=== PATIENT | male | born 1970 | race Caucasian/White ===

== ENCOUNTER 2016-07-16 12:30 | Emergency (ER) | payer OTHER ==
[~2016-07-16] VITALS: Ht 177.8 cm; Wt 125.1 kg
[2016-07-16 12:43] VITALS: BP 152/92; PULSE 97; TEMP 36.4; O2SAT 98; Ht 177.8 cm; Wt 125.1 kg
[2016-07-16] MEDS ORDERED: PSEU30TA20 PO (14:22)
--- NOTE | 2016-07-16 14:35 | EMERGENCY ROOM VISIT NOTE ---
ED Visit Note First contact with patient: 14:13 CHIEF COMPLAINT: Skin rash HISTORY OF PRESENT ILLNESS: This 46-year-old male presents to the ER with chief complaint of a skin rash on both his hands which is very itchy. The patient states that he was diagnosed with scabies one month ago and was treated. He states his symptoms resolved but they started again on . The patient states that he had washed all his sheets in hot water when he was initially diagnosed. There has been no other family members with similar symptoms. REVIEW OF SYSTEMS: 6 system review was performed and was negative unless stated otherwise in history of present illness. PMH: The patient is healthy; there is no significant medical or surgical history. SOCIAL HISTORY: Patient denies any tobacco or alcohol use PHYSICAL EXAM: Vital Signs: Were reviewed See nurses' notes. GEN.: 46 year white male appears in no acute distress. MENTAL Status: Alert and oriented 3. SKIN: On both hands there are erythematous papules with burrows noted. There is no web spaces as well as on the dorsal aspect of the hands. The remainder of skin is clear. DIAGNOSIS: Scabies DISCHARGE INSTRUCTIONS & TREATMENT: Apply Elimite cream to entire body except for head. Leave on for 12 hours then wash off. If symptoms have not completely resolved in 1 week apply another treatment. Take Atarax as needed for itch. Avoid getting body overheated since this will make the itch worse. Wash all clothes and bedding in hot water. Current/Historical Medications Scheduled Pseudoephedrine (Sudafed), 30 MG PO DAILY Allergies Coded Allergies: No Known Allergies (Unverified , 07/16/16) Vital Signs Date Time Temp Pulse Resp B/P Pulse Ox O2 Delivery O2 Flow Rate FiO2 07/16/16 12:43 36.4 97 20 152/92 98 Room Air Departure Information Referrals No Doctor, Assigned (PCP) Patient Instructions A Signature Page, My [facility] Amer[facility]
[2016-07-16] MEDS ORDERED: ELMCR TOP (14:41)
[2016-07-16] MEDS ORDERED: HYDR-3126 PO (14:41)
== END 2016-07-16 14:53 | disposition home or self-care (01) ==
LOC: C.EDB 12:31 → C.EDD 14:53
DX: B86 Scabies (principal)

== ENCOUNTER → 2016-09-18 | Outpatient (CLI) | payer OTHER ==
[~2016-09-18] MED LIST: CEPH500C2 PO; CYCL10TA6 PO; ELMCR TOP; GLC/500 PO; HYDR-5688 PO; IBUP-1428 PO; LISI-729 PO; PSEU30TA20 PO; SIMV80TA2 PO; SULF800T23 PO
[2016-09-18 13:26] LABS: BASO % 0.9 %; BASO ABS # 0.08 K/uL (0-0.2); COMPLETE YES; EOS % 2.4 %; HEMATOCRIT 47.5 % (42-52); IG% 0.2 %; LYMPH ABS # 3.46 K/uL (1.2-3.4); MEAN CELL VOLUME 87.5 fL (80-100); MEAN CORPUSCULAR HEMOGLOBIN 31.9 pg (25-34); MEAN CORPUSCULAR HGB CONC 36.4 g/dl (32-36); MEAN PLATELET VOLUME 11.7 fL (7.4-10.4); MONO % 6.2 %; NEUT % 53.3 %; PLATELET COUNT 203 K/uL (130-400); RED BLOOD COUNT 5.43 M/uL (4.7-6.1); WHITE BLOOD COUNT 9.35 K/uL (4.8-10.8)
[2016-09-18 13:49] LABS: AST/SGOT 7 U/L (15-37); BLOOD UREA NITROGEN 16 mg/dl (7-18); CALCIUM 10.2 mg/dl (8.5-10.1); CARBON DIOXIDE 24 mmol/L (21-32); CHLORIDE 104 mmol/L (98-107); CHOLESTEROL 230 mg/dl (0-200); CHOLESTEROL/HDL RATIO 7.4; GLUCOSE 205 mg/dl (70-99); HDL CHOLESTEROL 31 mg/dl; POTASSIUM 4.3 mmol/L (3.5-5.1); SODIUM 138 mmol/L (136-145)
[2016-09-18 13:51] LABS: ESTIMATED AVERAGE GLUCOSE 203 mg/dl; HA1C FLAG Normal (Normal)
[2016-09-18 13:59] LABS: ALB/GLOB RATIO 0.9 (0.9-2); ALKALINE PHOSPHATASE 103 U/L (45-117); ALT/SGPT 21 U/L (12-78); LDL CHOLESTEROL CALCULATED 156 mg/dl; PROSTATE SPECIFIC ANTIGEN 0.432 ng/ml (0.000-4.000); TRIGLYCERIDES 216 mg/dl (0-150); VERY LOW DENSITY LIPOPROT CALC 43 mg/dl
[2016-09-18 14:22] LABS: RATIO 15.4 mcg/mg (0-30.0)
== END | disposition home or self-care (01) ==
LOC: C.LABPBG 10:58
PROVIDERS: ATTEND Neuromusculoskeletal Medicine & OMM
DX: Z00.00 Encounter for general adult medical examination without abnormal findings (principal); E11.9 Type 2 diabetes mellitus without complications; E78.5 Hyperlipidemia, unspecified; I10 Essential (primary) hypertension

== ENCOUNTER → 2016-10-22 | Outpatient (CLI) | payer OTHER | END | disposition home or self-care (01) | LOC: C.LABPBG 09:39 | PROVIDERS: ATTEND Physician Assistant | DX: E53.8 Deficiency of other specified B group vitamins (principal) ==

== ENCOUNTER 2017-02-12 08:13 | Emergency (ER) | payer OTHER ==
[~2017-02-12] VITALS: Ht 182.9 cm; Wt 121.9 kg
[~2017-02-12 08:13] MED LIST changes: -CEPH500C2 PO; -CYCL10TA6 PO; -GLC/500 PO; -HYDR-5688 PO; -IBUP-1428 PO; -LISI-729 PO; -SIMV80TA2 PO; -SULF800T23 PO
[2017-02-12 08:18] VITALS: TEMP 36.7; Ht 182.9 cm; Wt 121.9 kg
[2017-02-12] MEDS ORDERED: IBUPROFEN 600 MG TAB PO STA (08:31)
[2017-02-12] MEDS ORDERED: GLC/500 PO (08:47)
[2017-02-12] MEDS ORDERED: SIMV80TA2 PO (08:51)
[2017-02-12] MEDS ORDERED: LISI-729 PO (08:51)
--- NOTE | 2017-02-12 09:39 | DIAGNOSTIC IMAGING REPORT ---
THORACIC SPINE 3 VIEWS ROUTINE HISTORY: Pain Mid back pain COMPARISON: None. FINDINGS: There is no fracture. No subluxation. Disc spaces are preserved. IMPRESSION: No fracture or subluxation within the thoracic spine. The above report was generated using voice recognition software. It may contain grammatical, syntax or spelling errors. Electronically signed by: Dennis Rothman M.D. 02/12/2017 9:38 AM Dictated Date/Time: 02/12/2017 9:38 AM
[2017-02-12] MEDS ORDERED: IBUP-1428 PO (10:30)
[2017-02-12] MEDS ORDERED: CYCL10TA6 PO (10:30)
[2017-02-12 10:35] VITALS: BP 148/95; PULSE 89; O2SAT 98
--- NOTE | 2017-02-12 11:16 | EMERGENCY ROOM VISIT NOTE ---
History First contact with patient: 08:20 Chief Complaint: BACK PAIN Stated Complaint: BACK PAIN History of Present Illness The patient is a 46 year old male who presents to the Emergency Room with complaints of central back pain. 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 She now reports generalized pain radiating into the lower back region. It does not extend into the buttocks or extremities. The patient denies any rib pain, chest pain, shortness of breath or abdominal pain. The patient denies any prior history of back injuries or chronic back pain. The patient has not taken any medicine for his pain, and currently rates his discomfort a 4 out of 10. Review of Systems 10 system review was performed and was negative except for pertinent positives and negatives as indicated in history of present illness Past Medical/Surgical History Medical Problems: (1) Diab Crystal Wo Compl, Type Ii Or Unspec Type, Not Uncntrld (2) Hyperlipidemia, Unspecified (3) Hypertension Nos Family History FH: heart disease Social History Smoking Status: Current Every Day Smoker Alcohol Use: none Drug Use: none Marital Status: single Housing Status: lives with family Occupation Status: employed Current/Historical Medications Scheduled Cyclobenzaprine Hcl (Flexeril), 10 MG PO TID Lisinopril (Zestril), 5 MG PO DAILY Metformin Hcl (Glucophage), 500 MG PO BID Permethrin 5% (Elimite 5%), 1 APPLN TOP DIRECTED Simvastatin (Zocor), 80 MG PO DAILY Scheduled PRN Ibuprofen (Motrin), 800 MG PO Q8H PRN for Pain Physical Exam Vital Signs Date Time Temp Pulse Resp B/P (MAP) Pulse Ox O2 Delivery O2 Flow Rate FiO2 02/12/17 10:35 89 16 148/95 98 02/12/17 08:18 36.7 102 18 157/88 96 Room Air Physical Exam CONSTITUTIONAL: Obese male, alert and oriented X 3 with positive affect. Patient appears in mild discomfort. HEENT: Normocephalic, atraumatic. Pupils equal, round and reactive. NECK: Full active range of motion without discomfort. RESPIRATORY: Clear to auscultation bilaterally with no wheezing, crackles, rhonchi or stridor. CARDIOVASCULAR: Regular rate and rhythm with no murmurs, rubs or gallops. GASTROINTESTINAL: Bowel sounds present in all quadrants. Soft and nontender to palpation. MUSCULOSKELETAL: Examination shows mild tenderness to palpation through the lower thoracic paraspinous muscles, left worse than right. He has no focal tenderness through the central thoracolumbar spine or SI joints. Negative logroll. Negative sitting straight leg raise. The patient is able to lateral bend, rotate, flex and extend the back with mild discomfort. No paraspinous muscle spasm noted. INTEGUMENTARY: No rash or other significant dermatologic conditions noted. NEUROLOGIC: No focal neurologic deficits noted. Medical Decision & Procedures ER Provider Diagnostic Interpretation: My interpretation of thoracic spine x-rays THORACIC SPINE 3 VIEWS ROUTINE HISTORY: Pain Mid back pain COMPARISON: None. FINDINGS: There is no fracture. No subluxation. Disc spaces are preserved. IMPRESSION: No fracture or subluxation within the thoracic spine. Medications Administered Medications (Trade) Dose Ordered Sig/Anil Route Start Time Stop Time Status Last Admin Dose Admin Ibuprofen (Motrin Tab) 600 mg NOW STAT PO 02/12/17 08:31 02/12/17 08:33 DC 02/12/17 08:57 600 MG ED Course Patient history and physical exam were performed. Nurse's notes were reviewed. Vital signs were reviewed, showing a blood pressure 157/88. The patient was administered ibuprofen 600 mg for pain. X-rays of the thoracic spine were normal. The patient was encouraged to alternate ibuprofen and Tylenol for baseline pain relief. He did receive prescriptions for ibuprofen 800 mg and Flexeril 10 mg. He was instructed to follow-up with his Worker's Compensation physician if symptoms are not improving. He was given a note for light duty over the next 5 days he is welcome to return to the emergency department for any progressively worsening pain or concerning neurologic symptoms. The patient was happy with plan of care, and voiced understanding of all discharge instructions. He denied any pain at the conclusion of my exam. The patient's blood pressure was also elevated in the emergency department. He was encouraged to follow-up with his PCP for blood pressure recheck. Medical Decision Blood Pressure Screening Patient's blood pressure: Elevated blood pressure Blood pressure disposition: Referred to PCP Impression Primary Impression: Acute thoracic myofascial strain Departure Information Prescriptions Cyclobenzaprine Hcl (FLEXERIL) 10 Mg Tab 10 MG PO TID for spasm, #15 TAB Prov: Gordy Nagel PA 02/12/17 Ibuprofen (Motrin) 800 Mg Tab 800 MG PO Q8H Y for Pain, #20 TAB For Initial Treatment Prov: Gordy Nagel PA 02/12/17 Referrals Joaquin Esparza D.O. (PCP) Patient Instructions [facility] Problem Qualifiers Primary Impression: Acute thoracic myofascial strain Encounter type: initial encounter Qualified Codes: S29.019A - Strain of muscle and tendon of unspecified wall of thorax, initial encounter
== END 2017-02-12 10:35 | disposition home or self-care (01) ==
LOC: C.EDB 08:14 → C.EDA 10:35
DX: S29.012A Strain of muscle and tendon of back wall of thorax, initial encounter (principal); X50.9XXA Other and unspecified overexertion or strenuous movements or postures, initial encounter; Y99.0 Civilian activity done for income or pay; F17.210 Nicotine dependence, cigarettes, uncomplicated; E11.9 Type 2 diabetes mellitus without complications; I10 Essential (primary) hypertension; Z79.899 Other long term (current) drug therapy; E78.5 Hyperlipidemia, unspecified

== ENCOUNTER 2017-02-23 07:35 | Emergency (ER) | payer OTHER ==
[~2017-02-23] VITALS: Ht 177.8 cm; Wt 119.4 kg
[~2017-02-23 07:35] MED LIST changes: +CYCL10TA6 PO; +GLC/500 PO; +IBUP-1428 PO; +LISI-729 PO; -PSEU30TA20 PO; +SIMV80TA2 PO
[2017-02-23 07:42] VITALS: TEMP 36.9; Ht 177.8 cm; Wt 119.4 kg
[2017-02-23] MEDS ORDERED: CEFTRIAXONE SOD INJ 1 GM ADDVIAL IV STA (08:05)
[2017-02-23] MEDS ORDERED: DIPHTHERIA/TETANUS/PERTUSSIS 0.5 ML SYR/VIAL IM. ONE (08:15)
[2017-02-23] MEDS ORDERED: LIDO/EPINEPHRINE/SOD BICARB 20 ML VIAL INFIL ONE (08:15)
[2017-02-23] MEDS ORDERED: SULFAMETHOXAZOLE/TRIMETHOPRIM DS 800/160MG TAB PO ONE (08:15)
[2017-02-23 08:58] LABS: BASO % 0.5 %; BASO ABS # 0.06 K/uL (0-0.2); COMPLETE YES; EOS % 3.2 %; HEMATOCRIT 42.1 % (42-52); IG% 0.3 %; LYMPH % 18.5 %; LYMPH ABS # 2.19 K/uL (1.2-3.4); MEAN CELL VOLUME 86.1 fL (80-100); MEAN CORPUSCULAR HEMOGLOBIN 30.5 pg (25-34); MEAN CORPUSCULAR HGB CONC 35.4 g/dl (32-36); MEAN PLATELET VOLUME 10.7 fL (7.4-10.4); MONO % 6.9 %; NEUT % 70.6 %; PLATELET COUNT 207 K/uL (130-400); RED BLOOD COUNT 4.89 M/uL (4.7-6.1); WHITE BLOOD COUNT 11.81 K/uL (4.8-10.8)
[2017-02-23 09:10] LABS: BUN/CREATININE RATIO 12.9 (10-20); CALCIUM 9.8 mg/dl (8.5-10.1); CREATININE 0.8 mg/dl (0.60-1.40); POTASSIUM 4.2 mmol/L (3.5-5.1)
[2017-02-23 09:21] VITALS: BP 126/74; PULSE 95; O2SAT 97
[2017-02-23 09:28] LABS: BETA-HYDROXYBUTYRATE 8.38 mg/dL (0.2-2.81)
[2017-02-23] MEDS ORDERED: SULF800T23 PO (09:42)
[2017-02-23] MEDS ORDERED: HYDR-5688 PO (09:42)
[2017-02-23] MEDS ORDERED: CEPH500C2 PO (09:42)
--- NOTE | 2017-02-23 09:45 | EMERGENCY ROOM VISIT NOTE ---
ED Visit Note First contact with patient: 07:50 CHIEF COMPLAINT: Infection on the left axilla times one day HISTORY OF PRESENT ILLNESS: Patient is a 46-year-old white male, right-hand dominant, who presents emergency department for evaluation of an infection in the left armpit. He states that 3 nights ago while sleeping he felt a pinch in his left armpit at that he got bit by something, but didn't notice anything when he woke up. He states that yesterday the area became more red, swollen and tender. When he woke up this morning, the area was draining pus. Pain is better now that it has opened and draining. He applied Neosporin to the area. He has been using ibuprofen for a mid back strain her couple of weeks. He denies any fever or chills. He has been checking his blood sugars and they have been normal for him. He desires any prior history of skin infections or abscesses. He states he has pain when he tries to move the left arm. REVIEW OF SYSTEMS: Review of systems as per HPI. All other systems reviewed were negative. At least 6 systems reviewed. PMH: Electronic medical records are reviewed and summarized as above/below. See Problem List. His tetanus is not up-to-date. SOCIAL HISTORY: Patient lives at home with his mother. Employed. Positive tobacco use. PHYSICAL EXAM: Vital Signs: Reviewed Nurse's notes. CONSTITUTIONAL: Patient is a well-appearing 46-year-old white male who is awake and alert and in no acute distress. HEART: Regular rate and rhythm. LUNGS: Clear to auscultation. INTEGUMENTARY: Examination of the left axillary area show a large, actively draining abscess, with surrounding erythema and early cellulitic changes. Abscesses roughly baseball sized. The area is moderately tender to palpation. There is no lymphangitic streaking. MUSCULOSKELETAL: The left shoulder is nontender to palpation, non-erythematous, range of motion is full, limited only by pain from the axilla. Left upper extremity is neurovascularly intact. EMERGENCY DEPARTMENT COURSE: IV lock was initiated. CBC and BMP were collected. He was given Bactrim DS 2 tablets orally and 1 g of Rocephin IV. The abscess was prepped with Betadine and draped sterilely. 1% buffered lidocaine with epinephrine was used for local anesthesia, site where the abscess was draining was opened with an 11 blade, significant purulent material drained, culture was obtained and is pending. The abscess was decompressed, probed for loculations, and irrigated copiously with normal saline solution. Cavity was packed with plain gauze packing dipped in Betadine. Bulky, absorbant dressing was applied. Patient's laboratory studies revealed a slightly elevated white count at 11,800 , electrolytes are within normal limits. His glucose was 413. He reports that he has been checking his blood sugars at home and they have been "around 100." Recent laboratory studies performed a few months ago and noted his hemoglobin A1c to be 8.7. Patient was encouraged to monitor his blood sugars more closely , given the infection, and report his readings to discuss with his PCP at his follow-up appointment. Wound care measures were discussed with the patient. He will be placed on Keflex and Bactrim. He was also given a prescription for [place] to use for severe pain. Patient reports that he has a standing appointment with his primary care provider on 02/25, and if they are willing, he can be reevaluated there and have packing removed. Given the size of the abscess however, I suspect it would need to be repacked. If they are unable to do this in the office, or unwilling to reevaluate it, he was advised to return to the emergency department on Saturday for wound recheck, packing removal, and I suspect , repacking of the abscess. He was educated on the worrisome signs or symptoms for which he should return to the emergency department. Differential diagnoses include abscess, cellulitis, hidradenitis, lymphangitis, mass or malignancy, septic joint, among others. Medication reconciliation: I attest that I have personally reviewed the patient' s current medication list. Blood pressure screening: Patient was found to have a slightly elevated blood pressure due to circumstances. I do not believe that the patient requires hypertension monitoring. Patient was reviewed in the [facility] Prescription Drug Monitoring Program, and there were no red flags noted. Problem List Medical Problems: (1) Acute thoracic myofascial strain Status: Resolved (2) Diab Crystal Wo Compl, Type Ii Or Unspec Type, Not Uncntrld Status: Chronic (3) Hyperlipidemia, Unspecified Status: Chronic (4) Hypertension Nos Status: Chronic (5) Scabies Status: Resolved (6) Strain of thoracic spine Status: Resolved (7) Work related injury Status: Resolved Current/Historical Medications Scheduled Cephalexin Monohydrate (Keflex), 500 MG PO QID Lisinopril (Zestril), 5 MG PO DAILY Metformin Hcl (Glucophage), 500 MG PO BID Permethrin 5% (Elimite 5%), 1 APPLN TOP DIRECTED Simvastatin (Zocor), 80 MG PO DAILY Sulfa/Trimethoprim (Bactrim Ds 800MG/160MG), 1 TAB PO BID Scheduled PRN Hydrocodone/Acetaminophen 5MG/325MG ([place] 5MG/325MG), 1-2 TABLETS PO Q4 PRN for Pain Ibuprofen (Motrin), 800 MG PO Q8H PRN for Pain Allergies Coded Allergies: No Known Allergies (Unverified , 02/23/17) Vital Signs Date Time Temp Pulse Resp B/P (MAP) Pulse Ox O2 Delivery O2 Flow Rate FiO2 02/23/17 09:21 95 16 126/74 97 02/23/17 07:42 36.9 115 20 161/85 96 Room Air Laboratory Results 02/23/17 08:15 Red Blood Count 4.89, Mean Corpuscular Volume 86.1, Mean Corpuscular Hemoglobin 30.5, Mean Corpuscular Hemoglobin Concent 35.4, Mean Platelet Volume 10.7, Neutrophils (%) (Auto) 70.6, Lymphocytes (%) (Auto) 18.5, Monocytes (%) (Auto) 6.9, Eosinophils (%) (Auto) 3.2, Basophils (%) (Auto) 0.5, Neutrophils # (Auto) 8.33, Lymphocytes # (Auto) 2.19, Monocytes # (Auto) 0.81, Eosinophils # (Auto) 0.38, Basophils # (Auto) 0.06 02/23/17 08:15 Test 02/23/17 08:15 White Blood Count 11.81 K/uL (4.8-10.8) Red Blood Count 4.89 M/uL (4.7-6.1) Hemoglobin 14.9 g/dL (14.0-18.0) Hematocrit 42.1 % (42-52) Mean Corpuscular Volume 86.1 fL (80-100) Mean Corpuscular Hemoglobin 30.5 pg (25-34) Mean Corpuscular Hemoglobin Concent 35.4 g/dl (32-36) Platelet Count 207 K/uL (130-400) Mean Platelet Volume 10.7 fL (7.4-10.4) Neutrophils (%) (Auto) 70.6 % Lymphocytes (%) (Auto) 18.5 % Monocytes (%) (Auto) 6.9 % Eosinophils (%) (Auto) 3.2 % Basophils (%) (Auto) 0.5 % Neutrophils # (Auto) 8.33 K/uL (1.4-6.5) Lymphocytes # (Auto) 2.19 K/uL (1.2-3.4) Monocytes # (Auto) 0.81 K/uL (0.11-0.59) Eosinophils # (Auto) 0.38 K/uL (0-0.5) Basophils # (Auto) 0.06 K/uL (0-0.2) RDW Standard Deviation 40.3 fL (36.4-46.3) RDW Coefficient of Variation 12.7 % (11.5-14.5) Immature Granulocyte % (Auto) 0.3 % Immature Granulocyte # (Auto) 0.04 K/uL (0.00-0.02) Anion Gap 7.0 mmol/L (3-11) Est Creatinine Clear Calc Drug Dose 149.4 ml/min Estimated GFR () 124.2 Estimated GFR (Non- 107.1 BUN/Creatinine Ratio 12.9 (10-20) Calcium Level 9.8 mg/dl (8.5-10.1) Beta-Hydroxybutyric Acid 8.38 mg/dL (0.2-2.81) Medications Administered Medications (Trade) Dose Ordered Sig/Anil Route Start Time Stop Time Status Last Admin Dose Admin Diphtheria/ Pertussis/Tetanus Vacc (Adacel Inj) 0.5 ml ONCE ONCE IM. 02/23/17 08:15 02/23/17 08:16 DC 02/23/17 08:47 0.5 ML Ceftriaxone Sodium (Rocephin Inj) 1 gm NOW STAT IV 02/23/17 08:05 02/23/17 08:07 DC 02/23/17 08:47 1 GM Trimethoprim/ Sulfamethoxazole (Septra Ds 800/ 160MG Tab) 2 tab NOW ONCE PO 02/23/17 08:15 02/23/17 08:16 DC 02/23/17 08:46 2 TAB Departure Information Impression Primary Impression: Abscess of left axilla Prescriptions Hydrocodone/Acetaminophen 5MG/325MG ([place] 5MG/325MG) Tab 1-2 TABLETS PO Q4 Y for Pain, #20 TAB For Initial Treatment Prov: Sierra Gaytan PA 02/23/17 Sulfa/Trimethoprim (Bactrim Ds 800MG/160MG) Tab 1 TAB PO BID, #20 TAB Prov: Sierra Gaytan PA 02/23/17 Cephalexin Monohydrate (KEFLEX) 500 Mg Cap 500 MG PO QID, #40 CAP Prov: Sierra Gaytan PA 02/23/17 Referrals Joaquin Esparza D.OFiona (PCP) Patient Instructions [facility] Additional Instructions Hydrocodone/Acetaminophen ([place]) 5/325 mg: Take 1-2 pills every four hours for breakthrough pain. Avoid alcohol, operating machinery or dangerous equipment, working on ladders or roofs, DRIVING, or situations where being under the influence may be dangerous. It is recommended to use an uqso-zsy-qlnbxom stool softener such as Colace, 100mg twice daily while taking this medication to avoid constipation. Cephalexin(Keflex) 500mg: Take one pill four times daily for 10 days for your skin infection. All antibiotics can cause diarrhea. If this occurs and you feel worse or it does not resolve in 1-2 days follow up with your doctor or return to the Emergency Department as this could be signs of serious underlying problems. Any medication can cause an allergic reaction, stop the pills immediately and return to the ER for rash, hives, breathing difficulties, or swelling. Trimethoprim-Sulfamethoxazole(Bactrim DS): Take one pill twice daily for 10 days for your skin infection. All antibiotics can cause diarrhea. If this occurs and you feel worse or it does not resolve in 1-2 days follow up with your doctor or return to the Emergency Department as this could be signs of serious underlying problems. Any medication can cause an allergic reaction, stop the pills immediately and return to the ER for rash, hives, breathing difficulties, or swelling. Ibuprofen(Motrin, Advil) may be used for fever or pain. Use 600mg every six hours as needed. Take with food. Avoid using more than 2400mg in a 24 hour period. Do not use 2400mg per day for more than three consecutive days without physician direction. Prolonged inappropriate use can lead to stomach upset or ulcers. Warm compresses to the affected area 4 times daily for 15-20 minutes. Dressing changes daily, more often if the dressing becomes saturated her soiled. May shower, he careful to not remove the packing material accidentally when changing a bandage or when bathing. Rest and drink plenty of fluids. Continue current medications. Return to the ER in 48 hours for wound recheck and packing removal, immediately for severe pain, persistent fevers, spreading redness, or any worsening of your condition. Follow up with your primary physician as scheduled on Saturday for a recheck of the current condition. Your blood sugar was over 400 today. This could be related to your infection. Please check your blood sugars more frequently over the weekend and record results to review with your PCP on Saturday.
--- NOTE | 2017-02-25 15:43 | Pharmacy Progress Note ---
ED Pharmacist Culture FollowUp Date of Service: Feb 25, 2017. Patient's L axilla abscess cx is growing MSSA (pansensitive). He had been discharged w/ Rx's for Keflex 500mg PO QID x 10 days + Bactrim DS 1 PO BID x 10 days. I consulted S Stephan PAC to see if abx therapy could be deescalated based upon cx results. She stated the abscess size was large and that the patient was unkempt therefor both antibiotics may be warranted as he has risk factors for poor response. Please continue both ABX.
== END 2017-02-23 09:45 | disposition home or self-care (01) ==
LOC: C.EDB 07:36
DX: L02.412 Cutaneous abscess of left axilla (principal); Z72.0 Tobacco use; E11.9 Type 2 diabetes mellitus without complications; E78.5 Hyperlipidemia, unspecified; I10 Essential (primary) hypertension; Z23 Encounter for immunization; Z79.84 Long term (current) use of oral hypoglycemic drugs; Z79.899 Other long term (current) drug therapy

== ENCOUNTER 2017-02-23 18:44 | Emergency (ER) | payer OTHER ==
[~2017-02-23] VITALS: Ht 177.8 cm; Wt 118.9 kg
[~2017-02-23 18:44] MED LIST changes: +CEPH500C2 PO; +HYDR-5688 PO; +SULF800T23 PO
[2017-02-23 18:47] VITALS: TEMP 36.9; Ht 177.8 cm; Wt 118.9 kg
[2017-02-23 20:10] VITALS: BP 143/97; PULSE 98; O2SAT 97
--- NOTE | 2017-02-24 01:29 | EMERGENCY ROOM VISIT NOTE ---
ED Visit Note First contact with patient: 18:53 Chief Complaint: My packing is falling out. History of Present Illness: Mr. Jackman is a 46-year-old white male who ambulates into the ED accompanied by his mother complaining of packing material falling out of an abscess. Patient reports he was here earlier today and had an I&D procedure performed for a left axillary abscess approximately 4-5 hours ago. After arriving home he accidentally pulled out some of the packing. Additionally reports when this happened he had additional drainage of what he felt was a large amount of blood and pus. Since that time he reports he has had no increasing pain in the area of the abscess, fevers, chills, worsening swelling or any other concerning symptoms. Review of Systems: As noted above in history of present illness. Past Medical History: (1) Acute thoracic myofascial strain (2) Diab Crystal Wo Compl, Type Ii Or Unspec Type, Not Uncntrld (3) Hyperlipidemia, Unspecified (4) Hypertension Nos (5) Scabies (6) Strain of thoracic spine (7) Work related injury Current Medications: Medications Dose Route/Sig Max Daily Dose Days Date Category Dose Instructions [place] 5MG/325MG (Acetaminophen/Hydrocodone Bitart) Tab 1-2 Tablets PO Q4 PRN 02/23/17 Rx For Initial Treatment Bactrim Ds 800MG/160MG (Trimethoprim/Sulfamethoxazole) Tab 1 Tab PO BID 02/23/17 Rx Keflex (Cephalexin Monohydrate) 500 Mg Cap 500 Mg PO QID 02/23/17 Rx Motrin (Ibuprofen) 800 Mg Tab 800 Mg PO Q8H PRN 02/12/17 Rx For Initial Treatment Zestril (Lisinopril) 5 Mg Tab 5 Mg PO DAILY 02/12/17 Reported Zocor (Simvastatin) 80 Mg Tab 80 Mg PO DAILY 02/12/17 Reported Glucophage (Metformin Hcl) 500 Mg Tab 500 Mg PO BID 02/12/17 Reported Elimite 5% (Permethrin) 180 Appln/60 Gm Cr 1 Appln TOP DIRECTED 07/16/16 Rx Apply cream to entire body sparing the head. Leave on for 12 hours then wash off. Repeat in 1 week if symptoms persist Allergies to Medications: Patient denies. Social History: Patient feels safe in his home environment; he admits to tobacco use. Physical Examination: Vital Signs: Date Time Temp Pulse Resp B/P (MAP) Pulse Ox O2 Delivery O2 Flow Rate FiO2 02/23/17 20:10 98 18 143/97 97 02/23/17 18:47 36.9 112 18 146/99 98 Room Air GENERAL: 46-year-old male in mild dstress due to pain, nontoxic-appearing, afebrile and hemodynamically stable. NEUROLOGICAL: Awake, alert and oriented to person, place and time. Answering questions appropriately and following commands. LEFT AXILLARY AREA: Patient has a large indurated area that is also fluctuant over the inferior aspect of the axilla. There is a 5-6 cm piece of packing hanging from his incision. No active bleeding or drainage. No lymphangitis. ED Course: Patient is assessed as noted above. Patient's medications were reviewed. Packing Removal and Reinsertion Complexity: Basic Verbal consent was obtained after the risks and benefits were explained. Patient's packing was removed. The skin was prepped with betadine and a sterile field set. A small amount of blood-tinged puslike material was able to be expressed from the wound. Visualization of the inside of the abscess cavity did not show any bleeding. Approximately 12 inch of packing material was reinserted into his abscess cavity. After this was performed patting was taped into place in the area to collect any additional drainage and try to secure the packing material. No complications and the patient tolerated the procedure well. Patient was educated about tonight's findings and instructed on his treatment plan; he verbalizes understanding and agreement with this plan. Clinical Impression: Abscess recheck. Packing reinsertion. Disposition: Patient discharged in stable condition accompanied by his mother. Plan: Patient was encouraged to continue to follow his current treatment plan and was prescribed earlier and to continue his antibiotics. Patient was encouraged return ED for uncontrolled pain, fever, increasing redness/swelling, increasing pus like drainage, red streaking or any new/ concerning symptoms.
== END 2017-02-23 20:11 | disposition home or self-care (01) ==
LOC: C.EDB 18:45 → C.EDD 20:11
DX: Z48.00 Encounter for change or removal of nonsurgical wound dressing (principal); L02.412 Cutaneous abscess of left axilla; E11.9 Type 2 diabetes mellitus without complications; E78.5 Hyperlipidemia, unspecified; I10 Essential (primary) hypertension

== ENCOUNTER 2017-02-25 10:51 | Emergency (ER) | payer OTHER ==
[~2017-02-25] VITALS: Ht 177.8 cm; Wt 119.0 kg
[~2017-02-25 10:51] MED LIST changes: -CYCL10TA6 PO
[2017-02-25 11:02] VITALS: BP 144/79; PULSE 111; TEMP 36.7; O2SAT 98; Ht 177.8 cm; Wt 119.0 kg
--- NOTE | 2017-02-25 11:39 | EMERGENCY ROOM VISIT NOTE ---
ED Visit Note First contact with patient: 11:21 CHIEF COMPLAINT: Packing removal HISTORY OF PRESENT ILLNESS: This 46-year-old male presents the ER stating he needs the packing removed from his left axilla. The patient was seen here 2 days ago and packing was placed initially but when he went home it fell out so he came back in and more packing was placed. The patient has been taking antibiotics as prescribed. He states the packing is still in place. He states when they change the bandage this morning there was minimal drainage. The patient denies any fever or chills. REVIEW OF SYSTEMS: 6 system review was performed and was negative unless stated otherwise in history of present illness. PMH: The patient is healthy; see chronic problem list. No changes from prior ER visit. SOCIAL HISTORY: Patient lives with his mother PHYSICAL EXAM: Vital Signs: Were reviewed Reviewed Nurse's notes. GEN.: 46-year -old white male appears in no acute distress. MENTAL Status: Alert and oriented 3. LEFT AXILLA; there is a slightly erythematous indurated area with a central opening with packing in place. There is no palpable fluctuance around the opening EMERGENCY DEPARTMENT COURSE: The patient was evaluated. The packing was removed and the cavity was swabbed with a Q-tip. There was very minimal drainage noted . A dressing was placed. The patient was discharged home in stable condition DIAGNOSIS: Abscess of the left axilla DISCHARGE INSTRUCTIONS & TREATMENT: Change the dressing if it becomes soiled or blood-stained. Continue antibiotics as prescribed. Keep area covered until wound is healed over. If symptoms worsen such as increased redness or increased drainage, return to the ER. Problem List Medical Problems: (1) Acute thoracic myofascial strain Status: Resolved (2) Diab Crystal Wo Compl, Type Ii Or Unspec Type, Not Uncntrld Status: Chronic (3) Hyperlipidemia, Unspecified Status: Chronic (4) Hypertension Nos Status: Chronic (5) Scabies Status: Resolved (6) Strain of thoracic spine Status: Resolved (7) Work related injury Status: Resolved Current/Historical Medications Scheduled Cephalexin Monohydrate (Keflex), 500 MG PO QID Lisinopril (Zestril), 5 MG PO DAILY Metformin Hcl (Glucophage), 500 MG PO BID Simvastatin (Zocor), 80 MG PO DAILY Sulfa/Trimethoprim (Bactrim Ds 800MG/160MG), 1 TAB PO BID Scheduled PRN Ibuprofen (Motrin), 800 MG PO Q8H PRN for Pain Allergies Coded Allergies: No Known Allergies (Unverified , 02/23/17) Vital Signs Date Time Temp Pulse Resp B/P (MAP) Pulse Ox O2 Delivery O2 Flow Rate FiO2 02/25/17 11:02 36.7 111 20 144/79 98 Room Air Departure Information Referrals Joaquin Esparza D.O. (PCP) Patient Instructions Formerly [facility], 1928–1983
== END 2017-02-25 11:50 | disposition home or self-care (01) ==
LOC: C.EDB 10:52 → C.EDD 11:50
DX: L02.412 Cutaneous abscess of left axilla (principal); E11.9 Type 2 diabetes mellitus without complications; I10 Essential (primary) hypertension; E78.5 Hyperlipidemia, unspecified; Z79.84 Long term (current) use of oral hypoglycemic drugs; Z79.899 Other long term (current) drug therapy

== ENCOUNTER 2024-03-29 23:07 | Inpatient (IN) ==
[2024-03-29] MEDS: ASPIRIN 81 MG CHEW PO STA (23:43)
[2024-03-29] MEDS: NITROGLYCERIN SL 0.4 MG/TAB TAB ONE (23:43)
[2024-03-29] MEDS: NITROGLYCERIN SL 0.4 MG/TAB TAB SL STA (23:43)
[2024-03-29 23:44] LABS: Hematocrit (blood only) 46.6 % (42.0-52.0); Hemoglobin 15.4 g/dl (14.0-18.0); Mean Corpuscular Hemoglobin 29.6 pg (25.0-34.0); Mean Corpuscular Volume 89.4 fL (80.0-100.0); Mean Platelet Volume 10.7 fL (9.4-12.4); Platelet Count 271 K/uL (130-400); RDW Coefficient of Variation 13.9 % (11.5-14.5); RDW Standard Deviation 45.8 fL (36.4-46.3); Red Blood Count 5.21 M/uL (4.70-6.10); White Blood Count 27.48 K/ul (4.8-10.8)
[2024-03-29 23:45] LABS: iSTAT Creatinine 0.8 mg/dl (0.6-1.3); iSTAT Hemoglobin 16.3 g/dl (14.0-18.0); iSTAT Ionized Calcium 1.29 mmol/l (1.12-1.32); iSTAT Potassium 3.8 mmol/L (3.3-5.0)
[2024-03-29 23:59] LABS: iSTAT Arterial Blood Gas HCO3 21 meg/L (19-24); iSTAT Arterial Blood Gas pCO2 41 mmHg (35-46); iSTAT Arterial Blood Gas pH 7.31 (7.35-7.45); iSTAT Arterial Blood Gas pO2 146 mmHg (80-95); iSTAT Carbon Dioxide 22 mmol/L (24-31); iSTAT Hematocrit 45 % (42-52); iSTAT Hemoglobin 15.3 g/dl (14.0-18.0); iSTAT Potassium 3.4 mmol/L (3.3-5.0); iSTAT Sodium 135 mmol/L (135-144)
[2024-03-30 00:16] LABS: BUN Creatinine Ratio 21.7 (10-20); Calcium 9.8 mg/dl (8.6-10.3); Creatinine Clr Calc Pharmacy 109.4 ml/min; Est GFR (African American) 108.9 ml/min; Magnesium 1.6 mg/dl (1.7-2.4); Partial Thromboplastin Time 26 Seconds (21-31); Potassium 3.9 mmol/L (3.5-5.1); Prothrombin Time 11.1 Seconds (9.0-12.0); Troponin I High Sensitivity 165.1 pg/ml (0-20)
[2024-03-30 00:18] LABS: Basophils # (auto) 0.17 K/uL (0.00-0.20); Basophils % (auto) 0.6 %; Eosinophils # (auto) 0.26 K/uL (0.00-0.50); Eosinophils % (auto) 0.9 %; Immature Granulocytes # (auto) 0.21 K/uL (0.01-0.20); Immature Granulocytes % (auto) 0.8 %; Lymphocytes # (auto) 5.37 K/uL (1.20-3.40); Lymphocytes % (auto) 19.5 %; Monocytes % (auto) 4.7 %; Neutrophils # (auto) 20.17 K/uL (1.40-6.50); Neutrophils % (auto) 73.5 %
[2024-03-30] MEDS: OPTIRAY 320 125ml IV ONE (00:23)
[2024-03-30] MEDS: FUROSEMIDE 40 MG/4 ML VIAL IV ONE (00:29)
--- NOTE | 2024-03-30 00:36 | Emergency Department Note ---
History of Present Illness General Chief Complaint: Shortness of Breath/Dyspnea Stated Complaint: SOB Time Seen by Provider: 03/29/24 23:23 History of Present Illness Provider Complaint: shortness of breath Onset (ago): hour(s) (1) Consistency/Duration: + progressively worsening Relieved By: + upright position Exacerbated By: + lying flat Context: + medication noncompliance Associated symptoms: + orthopnea; no chest pain, no fever, no cough, no palpitations, no hemoptysis or no abdominal pain Treatment prior to arrival: none Related Data Home oxygen amount: none Home Medications Medication Instructions Recorded Confirmed Type ibuprofen 600 mg tablet 600 mg PO Q6H PRN pain #30 tabs 07/04/20 03/30/24 Rx blood sugar diagnostic (Prolacta BioscienceTouch #50 ea 09/06/20 03/30/24 Rx Verio test strips) blood-glucose meter (Prolacta BioscienceTouch #1 ea 09/06/20 03/30/24 Rx Verio Flex Start kit) lancets 33 gauge (Prolacta BioscienceTouch Delica #100 ea 09/06/20 03/30/24 Rx Lancets) Allergies Allergy/AdvReac Type Severity Reaction Status Date / Time No Known Allergies Allergy Unverified 06/28/21 09:11 Past Med/Surg History Problem List (Updated 03/30/24 @ 03:50 by Flavio Cardoso MD) Flash pulmonary edema (Acute) Allergic reaction (Acute) Medical History Medical non-compliance Chronic low back pain Hyperlipidemia Hypertension Diabetes mellitus Scabies Surgical History No history of previous surgery Family History Denies family history of Ovarian cancer Prostate cancer Myocardial infarction Breast cancer Colorectal cancer Social History Smoking Status: Former smoker Tobacco Type: Cigarettes Age Started Using Tobacco: 30; Age Quit Using Tobacco: 50; packs per day: 2; Cigarettes Per Day: 40; Second Hand Exposure: Yes; Do You Dip or Chew Tobacco: No; Hx Alcohol Use: No Hx Substance Use: No Preferred Language: Malay Communication Ability: Effective Visual Impairment: No Limitations Hearing Ability: Normal All 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 Vehicle 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 Required: No marital status: Single Current Living Situation: Family current occupational status: employed current occupation: [employer] Feels Safe at Home: Yes Childhood Exposure to Second-Hand Smoke: Yes Diet: regular caffeine: No during the past year weight has: decreased > 10 lbs Dental Care, Regularly: Yes Physical Activity Frequency: Daily Sunscreen Use: No Assistive Devices: None Physical Exam 2 Vital Signs: Vital Signs - 24 hr 03/29/24 23:17 03/29/24 23:27 03/29/24 23:38 Temperature 36.4 C L Temperature Source Temporal Artery Sc an Pulse Rate 153 H 155 H Pulse Rate [Radial ] Pulse Rhythm [Radi al] Pulse Strength [Ra dial] Respiratory Rate 26 H Respiratory Effort / Characteristics Short of Breath Spontaneous Labore d Respiratory Depth Deep Respiratory Patter n Agonal Tachypnea Blood Pressure [Ri ght Arm] Blood Pressure Adilene n [Right Arm] Blood Pressure Pos ition [Right Arm] Pulse Oximetry 85 L Oxygen Delivery Me thod Nasal Cannula Oxygen Flow Rate 6 Fraction of Inspir ed Oxygen SaO2/FiO2 Ratio Sepsis Recent Feve r Within 48 Hours No Sepsis New/Unexpla ined Change in Men bernadine Status N/A Sepsis Action Take n by Nursing Physician Notified Oxygen Flow Rate - Titration Fraction of Inspir ed Oxygen - Titrat ion Pulse Oximetry Pos t Tiitration 03/29/24 23:38 03/29/24 23:38 03/29/24 23:44 Temperature Temperature Source Pulse Rate Pulse Rate [Radial ] Pulse Rhythm [Radi al] Pulse Strength [Ra dial] Respiratory Rate Respiratory Effort / Characteristics Respiratory Depth Respiratory Patter n Blood Pressure [Ri ght Arm] Blood Pressure Adilene n [Right Arm] Blood Pressure Pos ition [Right Arm] Pulse Oximetry 74 L 85 L Oxygen Delivery Me thod Room Air Room Air BiPAP Non-rebreath er Oxygen Flow Rate 0 15 Fraction of Inspir ed Oxygen SaO2/FiO2 Ratio Sepsis Recent Feve r Within 48 Hours Sepsis New/Unexpla ined Change in Men bernadine Status Sepsis Action Take n by Nursing Oxygen Flow Rate - Titration 15 Fraction of Inspir ed Oxygen - Titrat ion 100 Pulse Oximetry Pos t Tiitration 85 L 95 03/29/24 23:44 03/29/24 23:45 03/30/24 00:27 Temperature Temperature Source Pulse Rate 150 H Pulse Rate [Radial ] 144 H Pulse Rhythm [Radi al] Pulse Strength [Ra dial] Respiratory Rate 48 H 38 H Respiratory Effort / Characteristics Labored Short of B reath Non-Labored Labore d Respiratory Depth Deep Deep Respiratory Patter n Tachypnea Tachypnea Blood Pressure [Ri ght Arm] 170/105 H Blood Pressure Adilene n [Right Arm] 126 Blood Pressure Pos ition [Right Arm] Pulse Oximetry 97 95 98 Oxygen Delivery Me thod BiPAP BiPAP Oxygen Flow Rate Fraction of Inspir ed Oxygen 100 100 80 SaO2/FiO2 Ratio 95 Sepsis Recent Feve r Within 48 Hours Sepsis New/Unexpla ined Change in Men bernadine Status Sepsis Action Take n by Nursing Oxygen Flow Rate - Titration Fraction of Inspir ed Oxygen - Titrat ion 40 Pulse Oximetry Pos t Tiitration 95 03/30/24 00:32 03/30/24 00:57 03/30/24 01:29 Temperature Temperature Source Pulse Rate Pulse Rate [Radial ] 125 H 112 H Pulse Rhythm [Radi al] Regular Regular Pulse Strength [Ra dial] Normal Respiratory Rate 35 H 23 Respiratory Effort / Characteristics Non-Labored Sponta neous Non-Labored Sponta neous Respiratory Depth Deep Normal Respiratory Patter n Regular Regular Blood Pressure [Ri ght Arm] 107/75 96/68 L Blood Pressure Adilene n [Right Arm] 85 77 Blood Pressure Pos ition [Right Arm] Pulse Oximetry 93 99 96 Oxygen Delivery Me thod BiPAP BiPAP Oxygen Flow Rate Fraction of Inspir ed Oxygen 40 40 40 SaO2/FiO2 Ratio 232 240 Sepsis Recent Feve r Within 48 Hours Sepsis New/Unexpla ined Change in Men bernadine Status Sepsis Action Take n by Nursing Oxygen Flow Rate - Titration Fraction of Inspir ed Oxygen - Titrat ion Pulse Oximetry Pos t Tiitration 03/30/24 02:00 03/30/24 02:33 03/30/24 02:35 Temperature Temperature Source Pulse Rate 101 H Pulse Rate [Radial ] 107 H Pulse Rhythm [Radi al] Pulse Strength [Ra dial] Respiratory Rate 23 20 Respiratory Effort / Characteristics Non-Labored Sponta neous Non-Labored Sponta neous Respiratory Depth Normal Normal Respiratory Patter n Regular Regular Blood Pressure [Ri ght Arm] 111/77 Blood Pressure Adilene n [Right Arm] 88 Blood Pressure Pos ition [Right Arm] Pulse Oximetry 98 95 Oxygen Delivery Me thod BiPAP Nasal Cannula BiPA P Oxygen Flow Rate Fraction of Inspir ed Oxygen 40 40 SaO2/FiO2 Ratio 245 Sepsis Recent Feve r Within 48 Hours Sepsis New/Unexpla ined Change in Men bernadine Status Sepsis Action Take n by Nursing Oxygen Flow Rate - Titration 4 Fraction of Inspir ed Oxygen - Titrat ion Pulse Oximetry Pos t Tiitration 96 03/30/24 03:27 03/30/24 03:31 Temperature Temperature Source Pulse Rate 96 H Pulse Rate [Radial ] 98 H Pulse Rhythm [Radi al] Regular Pulse Strength [Ra dial] Normal Respiratory Rate 20 Respiratory Effort / Characteristics Non-Labored Sponta neous Respiratory Depth Normal Respiratory Patter n Blood Pressure [Ri ght Arm] 107/68 Blood Pressure Adilene n [Right Arm] 81 Blood Pressure Pos ition [Right Arm] Lying Pulse Oximetry 94 Oxygen Delivery Me thod Room Air Oxygen Flow Rate Fraction of Inspir ed Oxygen SaO2/FiO2 Ratio Sepsis Recent Feve r Within 48 Hours Sepsis New/Unexpla ined Change in Men bernadine Status Sepsis Action Take n by Nursing Oxygen Flow Rate - Titration Fraction of Inspir ed Oxygen - Titrat ion Pulse Oximetry Pos t Tiitration Physical Exam: Physical Exam GENERAL: Ill-appearing. HENT: Exam performed. - Head: Normocephalic and atraumatic. - Right Ear: External ear normal. No mastoid erythema - Left Ear: External ear normal. No mastoid erythema - Mouth/Throat: The oropharynx is clear and moist. No trismus in the jaw. No dental abscesses or uvula swelling. No oropharyngeal exudate or tonsillar abscesses. EYES: Conjunctivae and EOM are normal. Pupils are equal, round, and reactive to light. Right eye exhibits no discharge. Left eye exhibits no discharge. No scleral icterus. NECK: Normal range of motion. Neck supple. JVD present. CV: Tachycardic rate, regular rhythm, normal heart sounds and intact distal pulses. 1+ pitting edema of the bilateral lower extremities. Palpable radial pulses bue. PULM/CHEST: Tachypneic. Rales bilaterally. ABD: The abdomen is soft. NEURO: Motor and sensation grossly intact. SKIN: diaphoretic. PSYCH: He has a normal mood and affect. Behavior is normal. Judgment and thought content normal. Course Course 2323: The patient was evaluated in room A1. A complete history and physical exam was performed Cardiac monitoring: An order was placed for continuous cardiac monitoring. The monitor shows a rate of 150 with sinus tachycardia rhythm interpreted by me Patient hypoxic on room air. Supplemental oxygen was applied which improved the patient's oxygen saturation through a nonrebreather. IV access was obtained. Chest x-ray was immediately obtained. BiPAP ordered for the patient. 2345:Chest x-ray shows that the patient appears to be fluid overloaded. Patient be started on BiPAP 12/. ABG shows a pH of 7.30 841.2 CO2 bicarb 22. Repeat blood pressure in the room is elevated systolic greater than 170. Sublingual nitroglycerin ordered for the patient. 0042: Patient's vital signs improved on BiPAP. Patient reports feeling much more comfortable breathing on BiPAP. Blood pressure is improved status post 1 sublingual nitroglycerin and being on BiPAP. Patient was given Lasix 40 mg IV push. High-sensitivity troponin and BNP elevated. White blood cell count elevated as well as lactic acid. Will hold off on antibiotics until we repeat the patient's lactic acid as it is thought that the lactic acidemia could be due to to significant hypoxia. 0348: Vital signs stable on supplemental oxygen via nasal cannula. Patient's repeat lactic acid within normal limits without any IV hydration. It is thought that the patient's lactic acidemia is most likely secondary to his hypoxia. Repeat troponin was elevated at 11,379.3. Patient is not currently reporting any chest pain. Repeat EKG shows sinus rhythm with a rate of 94. TN QRS and QTc intervals within normal limits. No ST elevation or ST depression. Hospitalist team that was admitting the patient is aware of this and are starting the patient on heparin. Administered Medications Discontinued Medications Aspirin (Aspirin 81 Mg Chew) 324 mg PO NOW STA Stop: 03/29/24 23:37 Last Admin: 03/29/24 23:43 Dose: 324 mg Documented By: MARISOL Furosemide (Furosemide 40 Mg/4 Ml Vial) 40 mg IV ONE ONE Stop: 03/30/24 00:20 Last Admin: 03/30/24 00:29 Dose: 40 mg Documented By: MARISOL Piperacillin Sod/Tazobactam Sod (Zosyn) 4.5 gm in 120 mls @ 240 mls/hr IV NOW ONE Stop: 03/30/24 01:23 Last Infusion: 03/30/24 01:56 Dose: Infused Documented By: Admin: 03/30/24 01:25 Dose: 240 mls/hr Documented By: MARISOL Ioversol (Optiray 320 125ml) 125 ml IV ONCE ONE Stop: 03/30/24 00:23 Last Admin: 03/30/24 00:23 Dose: 118 ml Documented By: MALOU Lorazepam (Lorazepam 2 Mg/1 Ml Vial) 0.5 mg IV NOW STA Stop: 03/30/24 01:25 Last Admin: 03/30/24 01:28 Dose: 0.5 mg Documented By: MARISOL Nitroglycerin (Nitroglycerin Sl 0.4 Mg/Tab Tab) 0.4 mg SL NOW STA Stop: 03/29/24 23:37 Last Admin: 03/29/24 23:43 Dose: 0.4 mg Documented By: MARISOL Nitroglycerin (Nitroglycerin Sl 0.4 Mg/Tab Tab) Confirm Administered Dose 0.4 mg .ROUTE .STK-MED ONE Stop: 03/29/24 23:38 Last Admin: 03/29/24 23:43 Dose: Not Given Documented By: MARISOL Medical Decision Making Laboratory Data Attestation: I reviewed the patient's lab results. 03/29/24 23:30 03/29/24 23:30 Lab Results 03/29/24 03/29/24 03/29/24 Range/Units 23:30 23:31 23:37 WBC 27.48 H (4.8-10.8) K/ul RBC 5.21 (4.70-6.10) M/uL Hgb 15.4 (14.0-18.0) g/dl POC Hgb 16.3 (14.0-18.0) g/dl Hct 46.6 (42.0-52.0) % POC Hct 48 (42-52) % MCV 89.4 (80.0-100.0) fL MCH 29.6 (25.0-34.0) pg MCHC 33.0 (32.0-36.0) g/dL RDW Std Deviation 45.8 (36.4-46.3) fL RDW Coeff of Romelia 13.9 (11.5-14.5) % Plt Count 271 (130-400) K/uL MPV 10.7 (9.4-12.4) fL Immature Gran % (Auto) 0.8 % Neut % (Auto) 73.5 % Lymph % (Auto) 19.5 % [place] % (Auto) 4.7 % Eos % (Auto) 0.9 % Baso % (Auto) 0.6 % Neut # (Auto) 20.17 H (1.40-6.50) K/uL Lymph # (Auto) 5.37 H (1.20-3.40) K/uL [place] # (Auto) 1.30 H (0.11-0.59) K/uL Eos # (Auto) 0.26 (0.00-0.50) K/uL Baso # (Auto) 0.17 (0.00-0.20) K/uL Immature Gran # (Auto) 0.21 H (0.01-0.20) K/uL PT 11.1 (9.0-12.0) Seconds INR 1.0 (0.9-1.1) APTT 26 (21-31) Seconds PTT Ratio 1.0 POC pH (7.35-7.45) POC pCO2 (35-46) mmHg POC pO2 (80-95) mmHg POC HCO3 (19-24) henri/L POC Base Excess (-9-1.8) henri/L POC ABG O2 Sat (90-95) % POC Sodium 139 (135-144) mmol/L Sodium 138 (136-145) mmol/L POC Potassium 3.8 (3.3-5.0) mmol/L Potassium 3.9 (3.5-5.1) mmol/L POC Chloride 105 (101-112) mmol/L Chloride 104 (98-107) mmol/L Carbon Dioxide 21 (21-32) mmol/L POC Total CO2 21 L (24-31) mmol/L Anion Gap 13 H (3-11) POC Anion Gap 18.0 (16-25) mmol/L POC BUN 19 H (7-18) mg/dl BUN 20 (6-23) mg/dl Creatinine 0.92 (0.6-1.4) mg/dl POC Creatinine 0.8 (0.6-1.3) mg/dl Est Cr Clr Drug Dosing 109.4 ml/min Est GFR ( Amer) 108.9 ml/min Est GFR (Non-Af Amer) 94.0 ml/min BUN/Creatinine Ratio 21.7 H (10-20) Glucose 478 H* (70-99(Fasting)) mg/dl POC Glucose (other) 478 H* (70-99) mg/dl Lactate 4.1 H* (0.4-2.0) mmol/L Calcium 9.8 (8.6-10.3) mg/dl POC Ioniz Calcium Abdoulaye 1.29 (1.12-1.32) mmol/l Magnesium 1.6 L (1.7-2.4) mg/dl Total Bilirubin (0.2-1.0) mg/dl Direct Bilirubin (0-0.2) mg/dl AST (13-39) U/L ALT (7-52) U/L Alkaline Phosphatase (34-104) U/L Troponin I High Sens 165.1 H* (0-20) pg/ml B-Natriuretic Peptide 818 H (0-100) pg/ml Total Protein (6.0-8.3) gm/dl Albumin (3.4-5.0) gm/dl Lipase 24 (11-82) U/L Procalcitonin < 0.02 (0-0.5) ng/ml SARS-CoV-2 (PCR) (Negative) Influenza Type A (PCR) (Neg) Influenza Type B (PCR) (Neg) RSV (RT-PCR) (Neg) 03/29/24 03/30/24 03/30/24 Range/Units 23:44 00:23 02:09 WBC (4.8-10.8) K/ul RBC (4.70-6.10) M/uL Hgb (14.0-18.0) g/dl POC Hgb 15.3 (14.0-18.0) g/dl Hct (42.0-52.0) % POC Hct 45 (42-52) % MCV (80.0-100.0) fL MCH (25.0-34.0) pg MCHC (32.0-36.0) g/dL RDW Std Deviation (36.4-46.3) fL RDW Coeff of Romelia (11.5-14.5) % Plt Count (130-400) K/uL MPV (9.4-12.4) fL Immature Gran % (Auto) % Neut % (Auto) % Lymph % (Auto) % [place] % (Auto) % Eos % (Auto) % Baso % (Auto) % Neut # (Auto) (1.40-6.50) K/uL Lymph # (Auto) (1.20-3.40) K/uL [place] # (Auto) (0.11-0.59) K/uL Eos # (Auto) (0.00-0.50) K/uL Baso # (Auto) (0.00-0.20) K/uL Immature Gran # (Auto) (0.01-0.20) K/uL PT (9.0-12.0) Seconds INR (0.9-1.1) APTT (21-31) Seconds PTT Ratio POC pH 7.31 L (7.35-7.45) POC pCO2 41 (35-46) mmHg POC pO2 146 H (80-95) mmHg POC HCO3 21 (19-24) henri/L POC Base Excess -6.0 (-9-1.8) henri/L POC ABG O2 Sat 99.0 H (90-95) % POC Sodium 135 (135-144) mmol/L Sodium (136-145) mmol/L POC Potassium 3.4 (3.3-5.0) mmol/L Potassium (3.5-5.1) mmol/L POC Chloride (101-112) mmol/L Chloride (98-107) mmol/L Carbon Dioxide (21-32) mmol/L POC Total CO2 22 L (24-31) mmol/L Anion Gap (3-11) POC Anion Gap (16-25) mmol/L POC BUN (7-18) mg/dl BUN (6-23) mg/dl Creatinine (0.6-1.4) mg/dl POC Creatinine (0.6-1.3) mg/dl Est Cr Clr Drug Dosing ml/min Est GFR ( Amer) ml/min Est GFR (Non-Af Amer) ml/min BUN/Creatinine Ratio (10-20) Glucose (70-99(Fasting)) mg/dl POC Glucose (other) (70-99) mg/dl Lactate 1.6 (0.4-2.0) mmol/L Calcium (8.6-10.3) mg/dl POC Ioniz Calcium Abdoulaye (1.12-1.32) mmol/l Magnesium (1.7-2.4) mg/dl Total Bilirubin 0.5 (0.2-1.0) mg/dl Direct Bilirubin 0.1 (0-0.2) mg/dl AST 63 H (13-39) U/L ALT 24 (7-52) U/L Alkaline Phosphatase 122 H (34-104) U/L Troponin I High Sens 47326.3 H* D (0-20) pg/ml B-Natriuretic Peptide (0-100) pg/ml Total Protein 6.6 (6.0-8.3) gm/dl Albumin 3.7 (3.4-5.0) gm/dl Lipase (11-82) U/L Procalcitonin (0-0.5) ng/ml SARS-CoV-2 (PCR) NEGATIVE (Negative) Influenza Type A (PCR) Negative (Neg) Influenza Type B (PCR) Negative (Neg) RSV (RT-PCR) Negative (Neg) Imaging Data Attestation: I personally reviewed and interpreted this imaging study as follows: My Impression: Chest x-ray: Cardiomegaly with cephalization. ECG Data Attestation: I personally reviewed and interpreted this ECG as follows: Interpretation: Sinus tachycardia with a rate of 155. TN QRS and QTc intervals within normal limits. No ST elevation ST depression. PVCs present. [facility] Narrative 2323: The patient was evaluated in room A1. A complete history and physical exam was performed Cardiac monitoring: An order was placed for continuous cardiac monitoring. The monitor shows a rate of 150 with sinus tachycardia rhythm interpreted by me Patient hypoxic on room air. Supplemental oxygen was applied which improved the patient's oxygen saturation through a nonrebreather. IV access was obtained. Chest x-ray was immediately obtained. BiPAP ordered for the patient. 2345:Chest x-ray shows that the patient appears to be fluid overloaded. Patient be started on BiPAP 12/. ABG shows a pH of 7.30 841.2 CO2 bicarb 22. Repeat blood pressure in the room is elevated systolic greater than 170. Sublingual nitroglycerin ordered for the patient. 0042: Patient's vital signs improved on BiPAP. Patient reports feeling much more comfortable breathing on BiPAP. Blood pressure is improved status post 1 sublingual nitroglycerin and being on BiPAP. Patient was given Lasix 40 mg IV push. High-sensitivity troponin and BNP elevated. White blood cell count elevated as well as lactic acid. Will hold off on antibiotics until we repeat the patient's lactic acid as it is thought that the lactic acidemia could be due to to significant hypoxia. 0348: Vital signs stable on supplemental oxygen via nasal cannula. Patient's repeat lactic acid within normal limits without any IV hydration. It is thought that the patient's lactic acidemia is most likely secondary to his hypoxia. Repeat troponin was elevated at 11,379.3. Patient is not currently reporting any chest pain. Repeat EKG shows sinus rhythm with a rate of 94. TN QRS and QTc intervals within normal limits. No ST elevation or ST depression. Hospitalist team that was admitting the patient is aware of this and are starting the patient on heparin. Impression & Plan Flash pulmonary edema Critical Care Time Critical Care Time: Yes Total Critical Care Time: 59 I have personally spent greater than 59 minutes of critical care time in the direct management of this patient. This includes bedside care, interpretation of diagnostic studies, and testing, discussion with consultants, patient, and family members, and other required patient management activities. This 59 minutes is in excess of all separately billable procedures. Discharge Plan Visit Data Chief Complaint: Shortness of Breath/Dyspnea Stated Complaint: SOB ED Provider: Flavio Cardoso Discharge Problem: Flash pulmonary edema Patient Disposition: Admitted As Inpatient Forms Stand Alone Forms: My [facility] Prescriptions Prescriptions: No Action (DME) blood-glucose meter [OneTouch Verio Flex Start] Kit See Rx Instructions .ROUTE .MEDSUPPLY Qty: 1 0RF Rx Instructions: Monitor glucose daily - dx E11.9 (DME) OneTouch Verio test strips Strip See Rx Instructions .ROUTE .MEDSUPPLY Qty: 50 0RF Rx Instructions: Monitor glucose daily - dx E11.9 (DME) lancets [OneTouch Delica Lancets] 33 gauge misc See Rx Instructions .ROUTE .MEDSUPPLY Qty: 100 0RF Rx Instructions: Monitor glucose daily - E11.9 ibuprofen 600 mg tablet 600 mg PO Q6H PRN (Reason: pain) Qty: 30 0RF Referrals Referrals: PCP,NO [Primary Care Provider] -
--- NOTE | 2024-03-30 00:53 | CT Scan Report ---
Exam(s): CTA CHEST IV Amt: 118 ML OPTIRAY 320 EXAM: CT Angiography Chest With Intravenous Contrast CLINICAL HISTORY: Reason for exam: ro PE. TECHNIQUE: Axial computed tomographic angiography images of the chest with intravenous contrast. Automated exposure control was utilized for the study. A dose lowering technique was utilized adhering to the principles of ALARA. MIP reconstructed images were created and reviewed. COMPARISON: No relevant prior studies available. FINDINGS: The exam is limited due to artifact. Pulmonary arteries: No central pulmonary embolism is seen. Aorta: No thoracic aortic aneurysm or dissection. Lungs: There are patchy bilateral infiltrates most pronounced in the lower lobes. Pleural space: There are trace bilateral pleural effusions.. No pneumothorax. Heart: Heart is not enlarged.. Bones/joints: There are hypertrophic degenerative changes in the spine. Soft tissues: Unremarkable. Lymph nodes: There are small mediastinal lymph nodes.. Additional: Partially visualized, there is a 3.5 cm low-density lesion in the region of the left adrenal gland. IMPRESSION: Limited exam. No central pulmonary embolism is seen. There are patchy bilateral infiltrates. There are trace bilateral pleural effusions. Partially visualized, there is a 3.5 cm low-density lesion in the region of the left adrenal gland. This may represent a cyst or adenoma. Electronically signed by: Marcellus Brito MD 03/30/24 00:53 AM
[2024-03-30 01:15] LABS: Influenza A virus by PCR Negative (Neg); Influenza B virus by PCR Negative (Neg); RSV by PCR Negative (Neg); SARS CoV2 RNA(COVID-19) Ceph NEGATIVE (Negative)
[2024-03-30] MEDS: PIPERACILLIN/TAZOBACTAM 4.5 GM/120 ML BAG IV ONE (01:25)
[2024-03-30] MEDS: LORazepam 2 MG/1 ML VIAL IV STA (01:28)
--- NOTE | 2024-03-30 02:22 | History & Physical Report ---
Date of Service March 30, 2024 Assessment & Plan (1) Flash pulmonary edema: Plan: - Elevated BNP, Chest CTA with small pleural effusions-> likely fluid overloading in the setting of CHF - TTE pending - s/p Lasix in ED, hold of further diuresis at present due to borderline hypotension (2) NSTEMI (non-ST elevated myocardial infarction): Plan: - Troponin up trending 165-> 899311 - denies chest pain, dyspnea - received 324mg asp in ED - no acute ischemic changes on EKG - started on heparin gtt - cardiology consulted; NPO pending eval - add statin, lipid panel - add beta jie as blood pressure tolerates (3) CAP (community acquired pneumonia): Plan: - Infiltrates seen on CTA - SIRS + with leukocytosis/tachycardia, but cautious with fluids given concern for hypovolemia - lactate 4.1-> 1.6 - continue on Zosyn (4) DM2 (diabetes mellitus, type 2): Plan: - elevated blood glucose on admission - SSI while inpatient - repeat hemoglobin a1c Plan Code: Full Dispo: PCU VTE Prophylaxis: Heparin History of Present Illness Primary Care Provider: NO PCP 54 year old male with a past medical history of DM2, HLD, HTN presenting with concern for shortness of breath. He was able to answer questions appropriately, but provided limited history. Shortness of breath started this evening. Denies chest pain. Worse when laying down. Denies URI symptoms-> cough, congestion, fever/chills. Has not been to the [facility]. ED Course Significant for: Hypoxic to the 70s, placed on supplemental oxygen and then BiPAP. Leukocytosis= 27.4, Lactate 4.1-> 1.6, Trop 165-> 04953. BNP= 818. CTA chest with B/L infiltrates. Reveoced 324mg asp, Zosygn, 40mg IV Lasix. Allergies Allergy/AdvReac Type Severity Reaction Status Date / Time No Known Allergies Allergy Unverified 06/28/21 09:11 Home Medications Medication Instructions Recorded Confirmed Type ibuprofen 600 mg tablet 600 mg PO Q6H PRN pain #30 tabs 07/04/20 03/30/24 Rx blood sugar diagnostic ([employer]Touch #50 ea 09/06/20 03/30/24 Rx Verio test strips) blood-glucose meter (OneTouch #1 ea 09/06/20 03/30/24 Rx Verio Flex Start kit) lancets 33 gauge (OneTouch Delica #100 ea 09/06/20 03/30/24 Rx Lancets) Past Med/Surg History Problem List (Updated 03/30/24 @ 04:55 by Annette Kim DO) CAP (community acquired pneumonia) DM2 (diabetes mellitus, type 2) NSTEMI (non-ST elevated myocardial infarction) Flash pulmonary edema (Acute) Allergic reaction (Acute) Medical History Medical non-compliance Chronic low back pain Hyperlipidemia Hypertension Diabetes mellitus Scabies Surgical History No history of previous surgery Family History Denies family history of Ovarian cancer Prostate cancer Myocardial infarction Breast cancer Colorectal cancer Social History Smoking Status: Unknown if ever smoked Tobacco Type: Cigarettes Age Started Using Tobacco: 30; Age Quit Using Tobacco: 50; packs per day: 2; Cigarettes Per Day: 40; Second Hand Exposure: Yes; Do You Dip or Chew Tobacco: No; Hx Substance Use: No Preferred Language: Icelandic Communication Ability: Effective Visual Impairment: No Limitations Hearing Ability: Normal Data Base Administrator Required: No Beliefs That Will Affect Care: None marital status: Single Current Living Situation: Family current occupational status: employed current occupation: [employer] Feels Safe at Home: No Childhood Exposure to Second-Hand Smoke: Yes Diet: regular caffeine: No during the past year weight has: decreased > 10 lbs Dental Care, Regularly: Yes Physical Activity Frequency: Daily Sunscreen Use: No Assistive Devices: None Review of Systems Review of Systems: As per above Physical Exam Physical Exam: Constitutional: no acute distress- BiPAP on HEENT: NCAT, no conjunctival injection CV: regular rhythm, no murmur appreciated, extremities well-perfused, no LE edema Resp: +rales , no increased work of breathing GI: soft, nondistended, nontender MSK: no gross deformities appreciated Skin: warm, dry, no rash appreciated Neuro: alert, oriented, no focal neurologic deficit appreciated Results & Data Results & Data Vital Signs (Past 12 Hours) Vital Signs Temp Pulse Pulse Resp BP Pulse Ox O2 Del Method 03/30/24 00:57 99 03/30/24 00:32 125 H 35 H 107/75 93 BiPAP 03/30/24 00:27 98 BiPAP 03/29/24 23:45 144 H 38 H 170/105 H 95 BiPAP 03/29/24 23:44 150 H 48 H 97 03/29/24 23:44 85 L BiPAP, Non-rebreather 03/29/24 23:38 Room Air 03/29/24 23:38 74 L Room Air 03/29/24 23:27 155 H 03/29/24 23:17 36.4 C L 153 H 26 H 85 L Nasal Cannula O2 Flow Rate FiO2 03/30/24 00:57 40 03/30/24 00:32 40 03/30/24 00:27 80 03/29/24 23:45 100 03/29/24 23:44 100 03/29/24 23:44 15 03/29/24 23:38 03/29/24 23:38 0 03/29/24 23:27 03/29/24 23:17 6 Supervising Physician Co-Signing Physician Notes Attending addendum: I have physically seen this patient, have supervised the medical residents activities, and agree with the H&P unless as otherwise noted. Assessment and Plan: NSTEMI/CHF/pleural effusions- The patient will be admitted to telemetry for serial cardiac enzymes, serial EKG's, cardiac rhythm monitoring and a 2-D echocardiogram with Dopplers. Initial troponin 165.1 with follow-up 11,300 BNP 818 From the ED received furosemide 40 mg IV, aspirin 2024 mg, and nitroglycerin sublingual Will start heparin drip standard dosing with bolus per protocol Adding high-dose statin Check a fasting panel and hemoglobin A1c Blood pressure is borderline low at this point to add beta-jie or Nitropaste EKG without acute ST-T changes Consulting cardiology Pneumonia- Zosyn 4.5 g IV every 8 hours Guaifenesin extended release 1200 mg p.o. twice daily DuoNebs every 2 hours as needed Diabetes mellitus- Check hemoglobin A1c Patient Accu-Cheks with NovoLog SSI Resident Activity Tracking Resident Involvement: Resident Care Provided Care Provided: Adult Hospital Medicine
[2024-03-30 02:49] LABS: Albumin Level 3.7 gm/dl (3.4-5.0); Bilirubin Direct 0.1 mg/dl (0-0.2); Bilirubin,Total 0.5 mg/dl (0.2-1.0); Total Protein 6.6 gm/dl (6.0-8.3)
[2024-03-30 03:00] LABS: Troponin I High Sensitivity 11379.3 pg/ml (0-20)
[2024-03-30] MEDS ORDERED: HEPARIN SOD (PORCINE) 1000 UNIT/ML IV ONE (03:45)
[2024-03-30] MEDS: HEPARIN SODIUM/DEXTROSE 25,000 UNITS/500 ML BAG IV SCH (04:15)
[2024-03-30] MEDS: HEPARIN SOD (PORCINE) 1000 UNIT/ML IV ONE (04:15)
[2024-03-30] MEDS: Heparin IV Adult Wt-Based Standard w/ INITIAL Bolus Protocol IV STA (04:30)
[2024-03-30] MEDS ORDERED: GLUCOSE 40% GEL 15 GM TUBE PO PRN ×2 (05:20→06:05)
[2024-03-30] MEDS ORDERED: GLUCAGON FOR INJ 1 MG VIAL SQ PRN ×2 (05:20→06:05)
[2024-03-30] MEDS ORDERED: GLUCOSE 10 TAB/TUBE PO PRN ×2 (05:20→06:05)
[2024-03-30] MEDS ORDERED: DEXTROSE 50% 50 ML SYRINGE IV PRN ×2 (05:20→06:05)
[2024-03-30] MEDS ORDERED: CARBOHYDRATES FOR HYPOGLYCEMIA PO PRN ×2 (05:20→06:05)
[2024-03-30] MEDS: MAGNESIUM SULFATE / D5W 1 GM/100 ML BAG IV SCH (06:06)
[2024-03-30] MEDS: INSULIN ASPART PER UNIT CHARGE SC SCH (06:35)
[2024-03-30] MEDS: PIPERACILLIN/TAZOBACTAM 4.5 GM/100 ML BAG IV SCH (06:48)
--- NOTE | 2024-03-30 06:53 | XRay Report ---
XR chest 1V portable CLINICAL HISTORY: Chest pain, nonspecific. COMPARISON STUDY: Chest radiograph April 03, 2018. FINDINGS: No pneumothorax or pleural effusion is present. Interstitial thickening is present. Bilater al airspace opacities are also noted. Cardiac size is at upper limits of normal. IMPRESSION: 1. Findings consistent with moderate to marked interstitial pulmonary edema. 2. Bilateral airspace opacities which likely reflect alveolar pulmonary edema. Superimposed pneumonia could appear similar. Radiographic follow-up to ensure resolution is recommended. ACT 112: Negative or not required by law. Electronically signed by: Fabiano Miranda M.D. 03/30/2024 6:52 AM
[2024-03-30] MEDS ORDERED: INSULIN ASPART PER UNIT CHARGE SC SCH (07:30)
[2024-03-30] MEDS ORDERED: PHARMACY GLYCEMIC MGMT CONSULT PRN (07:55)
[2024-03-30 08:10] LABS: Basophils # (auto) 0.07 K/uL (0.00-0.20); Basophils % (auto) 0.4 %; Eosinophils # (auto) 0.06 K/uL (0.00-0.50); Eosinophils % (auto) 0.4 %; Hematocrit (blood only) 39.3 % (42.0-52.0); Hemoglobin 13.7 g/dl (14.0-18.0); Immature Granulocytes # (auto) 0.08 K/uL (0.01-0.20); Immature Granulocytes % (auto) 0.5 %; Lymphocytes # (auto) 3.28 K/uL (1.20-3.40); Lymphocytes % (auto) 20.2 %; Mean Corpuscular Hgb Conc 34.9 g/dL (32.0-36.0); Mean Corpuscular Volume 86.2 fL (80.0-100.0); Mean Platelet Volume 10.9 fL (9.4-12.4); Monocytes # (auto) 1.01 K/uL (0.11-0.59); Monocytes % (auto) 6.2 %; Neutrophils # (auto) 11.73 K/uL (1.40-6.50); Neutrophils % (auto) 72.3 %; Platelet Count 189 K/uL (130-400); RDW Coefficient of Variation 13.8 % (11.5-14.5); RDW Standard Deviation 43.2 fL (36.4-46.3); Red Blood Count 4.56 M/uL (4.70-6.10); White Blood Count 16.23 K/ul (4.8-10.8)
[2024-03-30 08:24] LABS: Albumin Globulin Ratio 1.4 (0.9-2); Albumin Level 3.5 gm/dl (3.4-5.0); BUN Creatinine Ratio 29.4 (10-20); Bilirubin,Total 0.4 mg/dl (0.2-1.0); Chol HDL Ratio 5.1 (0-5); Est GFR (African American) 125.5 ml/min; Est GFR (Non-African American) 108.3 ml/min; Globulin 2.5 gm/dl (2.5-4.0); Magnesium 1.8 mg/dl (1.7-2.4); Potassium 3.7 mmol/L (3.5-5.1)
[2024-03-30] MEDS: ATORVASTATIN 40 MG TAB PO SCH (08:25)
[2024-03-30 08:40] LABS: Estimated Average Glucose 266 mg/dl; Hemoglobin A1C 10.9 % (4.5-5.6)
[2024-03-30] MEDS: INSULIN ASPART PER UNIT CHARGE SC STA (09:29)
[2024-03-30] MEDS: LANTUS PER UNIT CHARGE SC STA (09:29)
--- NOTE | 2024-03-30 11:14 | Discharge Summary ---
Discharge Summary Date of Service March 30, 2024 Principal Dx & Hospital Course #1 = Principal Diagnosis (1) Flash pulmonary edema: - Elevated BNP, Chest CTA with small pleural effusions-> likely fluid overloading in the setting of CHF - TTE pending - s/p Lasix in ED, hold of further diuresis at present due to borderline hypotension Patient was explained in detail why he should not leave the hospital as it is not safe and he suffered a myocardial infarction. Patient understands that he had a heart attack, requires oxygen and further treatment while aso stating that this can result in his . Patient however still signed out against medical advice. Later in the day, I called patient to inform him of his echo findings. Patient did not peanut picker, no voice mail options. Also called his mother who did not peanut picker. Left voice mail to call back hospital. (2) NSTEMI (non-ST elevated myocardial infarction): - Troponin up trending 165-> 262126 - denies chest pain, dyspnea - received 324mg asp in ED - no acute ischemic changes on EKG - started on heparin gtt - cardiology consulted; NPO pending eval - add statin, lipid panel - add beta jie as blood pressure tolerates (3) CAP (community acquired pneumonia): - Infiltrates seen on CTA - SIRS + with leukocytosis/tachycardia, but cautious with fluids given concern for hypovolemia - lactate 4.1-> 1.6 - continue on Zosyn (4) DM2 (diabetes mellitus, type 2): - elevated blood glucose on admission - SSI while inpatient - repeat hemoglobin a1c Plan Code: Full Dispo: PCU VTE Prophylaxis: Heparin Admission HPI Per Admitting Provider 54 year old male with a past medical history of DM2, HLD, HTN presenting with concern for shortness of breath. He was able to answer questions appropriately, but provided limited history. Shortness of breath started this evening. Denies chest pain. Worse when laying down. Denies URI symptoms-> cough, congestion, fever/chills. Has not been to the doctors sense 2020. ED Course Significant for: Hypoxic to the 70s, placed on supplemental oxygen and then BiPAP. Leukocytosis= 27.4, Lactate 4.1-> 1.6, Trop 165-> 93853. BNP= 818. CTA chest with B/L infiltrates. Reveoced 324mg asp, Zosygn, 40mg IV Lasix. Discharge Exam Patient is comfortbale in bed. Discharge Plan Discharge Items Patient Disposition: Against Medical Advice Reason For Visit: HYPOXEMIA Activity: As commented below Non-emergency contact: Primary Care Provider Follow-up/Referrals: PCP,NO [Primary Care Provider] - Pending Studies at Discharge: No Stand-Alone Forms: My [facility] [employer], Smoking Cessation Skilled Items Patient informed of condition?: Yes Medications and DC Order Prescriptions: Continued (DME) blood-glucose meter [OneTouch Verio Flex Start] Kit See Rx Instructions .ROUTE .MEDSUPPLY Qty: 1 0RF Rx Instructions: Monitor glucose daily - dx E11.9 (DME) OneTouch Verio test strips Strip See Rx Instructions .ROUTE .MEDSUPPLY Qty: 50 0RF Rx Instructions: Monitor glucose daily - dx E11.9 (DME) lancets [OneTouch Delica Lancets] 33 gauge misc See Rx Instructions .ROUTE .MEDSUPPLY Qty: 100 0RF Rx Instructions: Monitor glucose daily - E11.9 ibuprofen 600 mg tablet 600 mg PO Q6H PRN (Reason: pain) Qty: 30 0RF Discharge Orders: Left Against Medical Advice (Routine); Ordered 03/30/24 Ordered By: Wilfred Stephens Admission Data Admit Date/Time: 03/30/24 01:29 Attending Provider: Wilfred Stephens Admit Provider: Annette Kim Primary Care Provider: PCP,NO Other Providers: Trey Vanessa; Joseph Rousseau Hospital Stay Data Consultations 03/30/24 00:55 ED Decision to Admit Stat 03/30/24 03:44 Consult Cardiology Routine Diagnostic Imagining Performed 03/29/24 23:33 CT angio chest PE protocol Stat Pending Results Patient Have Any Pending Studies at Discharge: No Total Time Total Time Spent Total Time Spent (In Minutes): 35 Coding Level of Care Code 58119 INP/OBS DISCH >30 MIN Diagnoses Flash pulmonary edema J81.0 NSTEMI (non-ST elevated myocardial infarction) I21.4 CAP (community acquired pneumonia) J18.9 DM2 (diabetes mellitus, type 2) E11.9 Time Spent (min) 35
[2024-03-30] MEDS ORDERED: ENOXAPARIN INJ 40 MG/0.4 ML SYR SQ SCH (11:15)
--- NOTE | 2024-03-30 17:26 | XCELERA ---
[id number]
--- NOTE | 2024-03-31 06:41 | Electrocardiogram Report ---
Test Reason : Blood Pressure : */* mmHG Vent. Rate : 155 BPM Atrial Rate : 156 BPM P-R Int : 164 ms QRS Dur : 102 ms QT Int : 222 ms P-R-T Axes : 56 67 218 degrees QTcB Int : 356 ms Sinus tachycardia with Premature ventricular complexes Nonspecific ST and T wave abnormality Abnormal ECG When compared with ECG of 03-Apr-2018 17:49, Premature ventricular complexes are now Present Vent. rate has increased by 66 bpm QRS duration has increased ST now depressed in Lateral leads T wave inversion no longer evident in Anterior leads Nonspecific T wave abnormality, worse in Lateral leads Confirmed by Joseph Rousseau ([id number]) on 03/31/2024 6:41:15 AM Referred By: NO PCP Confirmed By: Joseph Rousseau
--- NOTE | 2024-03-31 06:46 | Electrocardiogram Report ---
Test Reason : Blood Pressure : */* mmHG Vent. Rate : 94 BPM Atrial Rate : 94 BPM P-R Int : 168 ms QRS Dur : 96 ms QT Int : 378 ms P-R-T Axes : 52 44 52 degrees QTcB Int : 472 ms Normal sinus rhythm Possible Left atrial enlargement Possible Anterolateral infarct , age undetermined Abnormal ECG When compared with ECG of 29-Mar-2024 23:26, (unconfirmed) Significant changes have occurred Confirmed by Joseph Rousseau ([id number]) on 03/31/2024 6:46:09 AM Referred By: NO PCP Confirmed By: Joseph Rousseau
--- NOTE | 2024-04-01 19:09 | Billing Data ---
Date of Service April 01, 2024 Coding Level of Care Code 98778 INT INP/OBS CARE
== END 2024-03-30 11:20 | disposition left against medical advice (07) | DRG 280 ==
LOC: ED 23:07 → EDINP 03-30 01:29 → SUATTDRO 03-30 01:29 → EDINP 03-30 06:05
DX: Z87.891 Personal history of nicotine dependence; J81.0 Acute pulmonary edema; I50.9 Heart failure, unspecified; J90 Pleural effusion, not elsewhere classified; E11.9 Type 2 diabetes mellitus without complications; E78.5 Hyperlipidemia, unspecified; I21.4 Non-ST elevation (NSTEMI) myocardial infarction; Z91.148 Patient's other noncompliance with medication regimen for other reason; J18.9 Pneumonia, unspecified organism; I11.0 Hypertensive heart disease with heart failure

== ENCOUNTER 2024-04-03 02:00 | Inpatient (IN) ==
[2024-04-03 03:33] LABS: Basophils # (auto) 0.07 K/uL (0.00-0.20); Basophils % (auto) 0.7 %; Eosinophils # (auto) 0.28 K/uL (0.00-0.50); Eosinophils % (auto) 2.7 %; Hemoglobin 14.2 g/dl (14.0-18.0); Immature Granulocytes # (auto) 0.06 K/uL (0.01-0.20); Immature Granulocytes % (auto) 0.6 %; Lymphocytes # (auto) 2.62 K/uL (1.20-3.40); Mean Corpuscular Hemoglobin 29.7 pg (25.0-34.0); Mean Corpuscular Hgb Conc 33.8 g/dL (32.0-36.0); Mean Corpuscular Volume 87.9 fL (80.0-100.0); Mean Platelet Volume 11.1 fL (9.4-12.4); Monocytes # (auto) 0.71 K/uL (0.11-0.59); Monocytes % (auto) 6.8 %; Neutrophils # (auto) 6.75 K/uL (1.40-6.50); Neutrophils % (auto) 64.2 %; Platelet Count 262 K/uL (130-400); RDW Coefficient of Variation 13.6 % (11.5-14.5); RDW Standard Deviation 43.9 fL (36.4-46.3); Red Blood Count 4.78 M/uL (4.70-6.10); White Blood Count 10.49 K/ul (4.8-10.8)
[2024-04-03 03:37] LABS: Albumin Globulin Ratio 1.3 (0.9-2); Albumin Level 3.8 gm/dl (3.4-5.0); BUN Creatinine Ratio 24.7 (10-20); Bilirubin,Total 0.4 mg/dl (0.2-1.0); Calcium 10.1 mg/dl (8.6-10.3); Creatinine Clr Calc Pharmacy 135.6 ml/min; Est GFR (African American) 121.9 ml/min; Est GFR (Non-African American) 105.2 ml/min; Potassium 3.6 mmol/L (3.5-5.1); Total Protein 6.8 gm/dl (6.0-8.3)
[2024-04-03 03:45] LABS: Troponin I High Sensitivity 2663.5 pg/ml (0-20)
[2024-04-03] MEDS: FUROSEMIDE 40 MG/4 ML VIAL IV ONE (04:03)
[2024-04-03] MEDS: NITROGLYCERIN SL 0.4 MG/TAB TAB SL PRN (04:03)
[2024-04-03] MEDS: ASPIRIN CHEW 324 MG PO STA (04:03)
[2024-04-03 04:12] LABS: Partial Thromboplastin Time 27 Seconds (21-31); Prothrombin Time 10.9 Seconds (9.0-12.0)
--- NOTE | 2024-04-03 04:45 | History & Physical Report ---
Date of Service April 03, 2024 Assessment & Plan (1) NSTEMI (non-ST elevated myocardial infarction): (2) HFrEF (heart failure with reduced ejection fraction): (3) Flash pulmonary edema: (4) Hypertension: (5) CAP (community acquired pneumonia): (6) DM2 (diabetes mellitus, type 2): (7) Hyperlipidemia: Plan NSTEMI/acute HFrEF/hypertension/apical thrombus- The patient will be admitted to telemetry for serial cardiac enzymes, serial EKG's, cardiac rhythm monitoring Troponin 2663.5 with follow-up pending. Troponin on 03/30 was 24,053.4 Initial evaluation of the patient was on 03/30/2024, and left AMA later on the same day. Echocardiogram on 03/30 with ejection fraction 25-30%, with apical thrombus Heparin drip standard dosing per protocol Aspirin 324 mg given in ED, and continue 81 mg daily Furosemide 40 mg IV twice daily Klor-Con 40 mEq p.o. twice daily Metoprolol succinate 25 mg p.o. now, and then 25 mg p.o. twice daily Nitroglycerin sublingual every 5 minutes as needed chest pain Consult cardiology Diabetes mellitus- Hemoglobin A1c 10.9 on 03/30/2024 Glargine 10 units subcu twice daily Accu-Cheks before meals and at bedtime, with SSI Hyperlipidemia- Empirically placed on atorvastatin 40 mg every morning Community-acquired pneumonia- Ceftriaxone 2 g IV every 24 hours Azithromycin 500 mg IV every 24 hours History of Present Illness Chief Complaint: The patient presents to the emergency department after being awoken at about 1:00 this morning by chest pain and shortness of breath. Primary Care Provider: NO PCP The patient is a 54-year-old male with a past medical history including diabetes mellitus, NSTEMI, flash pulmonary edema, acute HFrEF with ejection fraction 25- 30%, apical thrombus and pneumonia, who left the hospital AMA during admission from 03/30/2024. The patient presents to the emergency department after being awoken from sleep with a recurrence of his chest pain and shortness of breath at about 1:00 this morning. Allergies Allergy/AdvReac Type Severity Reaction Status Date / Time No Known Allergies Allergy Unverified 06/28/21 09:11 Home Medications Medication Instructions Recorded Confirmed Type ibuprofen 600 mg tablet 600 mg PO Q6H PRN pain #30 tabs 07/04/20 04/03/24 Rx blood sugar diagnostic (OneTouch #50 ea 09/06/20 04/03/24 Rx Verio test strips) blood-glucose meter (OneTouch #1 ea 09/06/20 04/03/24 Rx Verio Flex Start kit) lancets 33 gauge (OneTouch Delica #100 ea 09/06/20 04/03/24 Rx Lancets) Past Med/Surg History Problem List (Updated 04/03/24 @ 06:01 by Trey Vanessa MD) HFrEF (heart failure with reduced ejection fraction) Hyperlipidemia Hypertension CAP (community acquired pneumonia) DM2 (diabetes mellitus, type 2) NSTEMI (non-ST elevated myocardial infarction) Flash pulmonary edema (Acute) Allergic reaction (Acute) Medical History Medical non-compliance Chronic low back pain Hyperlipidemia Hypertension Diabetes mellitus Scabies Surgical History No history of previous surgery Family History Denies family history of Ovarian cancer Prostate cancer Myocardial infarction Breast cancer Colorectal cancer Social History Smoking Status: Current some day smoker Tobacco Type: Cigarettes Age Started Using Tobacco: 30; Age Quit Using Tobacco: 50; packs per day: 2; Cigarettes Per Day: 40; Second Hand Exposure: Yes; Do You Dip or Chew Tobacco: No; Hx Substance Use: No Preferred Language: Cuban Communication Ability: Effective Visual Impairment: No Limitations Hearing Ability: Normal Butcher Scullion Required: No Beliefs That Will Affect Care: None marital status: Single Current Living Situation: Family current occupational status: employed current occupation: [employer] Feels Safe at Home: Yes Childhood Exposure to Second-Hand Smoke: Yes Diet: regular caffeine: No during the past year weight has: decreased > 10 lbs Dental Care, Regularly: Yes Physical Activity Frequency: Daily Sunscreen Use: No Assistive Devices: None Review of Systems Review of Systems: The patient denies palpitations, cough, lower extremity swelling, sore throat, fevers, chills, sweats, nausea, vomiting, diarrhea , constipation, abdominal pain, pelvic pain, blood in urine or stool, dysuria, urinary frequency or urgency, lightheadedness, dizziness, headache, memory loss, loss of consciousness, rash, abnormal bruising or bleeding, imbalance, focal or generalized weakness, numbness or tingling in arms or legs, generalized arthralgias or myalgias, back or neck pain, or night sweats. The review of systems is otherwise negative other than for that already noted above, and at least 10 systems have been reviewed. Physical Exam Physical Exam: The patient is awake, alert and oriented 3, well developed and well nourished, normocephalic and atraumatic, lying in bed and in no acute distress. HEENT--PERRL, EOMI, mucous membranes and oropharynx normal Neck--supple. No JVD. No bruits. Thyroid normal, trachea midline, no adenopathy. Heart--normal S1 and S2. No murmurs, rubs or gallops. Lungs--crackles at the bases to nursing home up bilaterally. No respiratory distress, no accessory muscle use. Abdomen--normal bowel sounds and soft. Nontender. Nondistended, no hernias or masses, no organomegaly. Extremities--no cyanosis or clubbing. Trace pretibial pitting edema. Dermatologic--normal skin turgor, normal color, no abnormal lymph nodes, no r chandan. Neurologic--cranial nerves II through XII grossly intact. Rheumatologic--normal range of motion. Psychiatric--normal affect. Results & Data Results & Data Vital Signs (Past 12 Hours) Vital Signs Temp Pulse Pulse Resp BP BP Pulse Ox 04/03/24 04:21 86 23 149/98 H 94 04/03/24 04:18 82 27 H 160/105 H 92 04/03/24 04:06 90 24 167/106 H 94 04/03/24 04:00 92 H 24 211/131 H 95 04/03/24 03:30 90 04/03/24 03:27 93 H 22 148/96 H 92 04/03/24 03:14 93 H 22 93 04/03/24 03:09 94 H 24 93 04/03/24 02:36 97 H 20 156/100 H 91 04/03/24 02:30 04/03/24 02:29 101 H 20 172/122 H 92 04/03/24 02:29 92 04/03/24 02:11 36.6 C 102 H 18 166/93 H 94 O2 Del Method 04/03/24 04:21 04/03/24 04:18 04/03/24 04:06 04/03/24 04:00 04/03/24 03:30 04/03/24 03:27 04/03/24 03:14 Room Air 04/03/24 03:09 04/03/24 02:36 04/03/24 02:30 Room Air 04/03/24 02:29 Room Air 04/03/24 02:29 Room Air 04/03/24 02:11 Room Air Laboratory Results Laboratory Results WBC 10.49 K/ul (4.8-10.8) 04/03/24 02:24 RBC 4.78 M/uL (4.70-6.10) 04/03/24 02:24 Hgb 14.2 g/dl (14.0-18.0) 04/03/24 02:24 Hct 42.0 % (42.0-52.0) 04/03/24 02:24 MCV 87.9 fL (80.0-100.0) 04/03/24 02:24 MCH 29.7 pg (25.0-34.0) 04/03/24 02:24 MCHC 33.8 g/dL (32.0-36.0) 04/03/24 02:24 RDW Std Deviation 43.9 fL (36.4-46.3) 04/03/24 02:24 RDW Coeff of Romelia 13.6 % (11.5-14.5) 04/03/24 02:24 Plt Count 262 K/uL (130-400) 04/03/24 02:24 MPV 11.1 fL (9.4-12.4) 04/03/24 02:24 Immature Gran % (Auto) 0.6 % 04/03/24 02:24 Neut % (Auto) 64.2 % 04/03/24 02:24 Lymph % (Auto) 25.0 % 04/03/24 02:24 [place] % (Auto) 6.8 % 04/03/24 02:24 Eos % (Auto) 2.7 % 04/03/24 02:24 Baso % (Auto) 0.7 % 04/03/24 02:24 Neut # (Auto) 6.75 K/uL (1.40-6.50) H 04/03/24 02:24 Lymph # (Auto) 2.62 K/uL (1.20-3.40) 04/03/24 02:24 [place] # (Auto) 0.71 K/uL (0.11-0.59) H 04/03/24 02:24 Eos # (Auto) 0.28 K/uL (0.00-0.50) 04/03/24 02:24 Baso # (Auto) 0.07 K/uL (0.00-0.20) 04/03/24 02:24 Immature Gran # (Auto) 0.06 K/uL (0.01-0.20) 04/03/24 02:24 PT 10.9 Seconds (9.0-12.0) 04/03/24 02:24 INR 1.0 (0.9-1.1) 04/03/24 02:24 APTT 27 Seconds (21-31) 04/03/24 02:24 PTT Ratio 1.0 04/03/24 02:24 Sodium 137 mmol/L (136-145) 04/03/24 02:24 Potassium 3.6 mmol/L (3.5-5.1) 04/03/24 02:24 Chloride 104 mmol/L (98-107) 04/03/24 02:24 Carbon Dioxide 26 mmol/L (21-32) 04/03/24 02:24 Anion Gap 7 (3-11) 04/03/24 02:24 BUN 18 mg/dl (6-23) 04/03/24 02:24 Creatinine 0.73 mg/dl (0.6-1.4) 04/03/24 02:24 Est Cr Clr Drug Dosing 135.6 ml/min 04/03/24 02:24 Est GFR ( Amer) 121.9 ml/min 04/03/24 02:24 Est GFR (Non-Af Amer) 105.2 ml/min 04/03/24 02:24 BUN/Creatinine Ratio 24.7 (10-20) H 04/03/24 02:24 Glucose 287 mg/dl (70-99(Fasting)) H 04/03/24 02:24 Calcium 10.1 mg/dl (8.6-10.3) 04/03/24 02:24 Total Bilirubin 0.4 mg/dl (0.2-1.0) 04/03/24 02:24 AST 15 U/L (13-39) 04/03/24 02:24 ALT 15 U/L (7-52) 04/03/24 02:24 Alkaline Phosphatase 132 U/L (34-104) H 04/03/24 02:24 Troponin I High Sens 2663.5 pg/ml (0-20) H* 04/03/24 02:24 B-Natriuretic Peptide 840 pg/ml (0-100) H 04/03/24 02:24 Total Protein 6.8 gm/dl (6.0-8.3) 04/03/24 02:24 Albumin 3.8 gm/dl (3.4-5.0) 04/03/24 02:24 Globulin 3.0 gm/dl (2.5-4.0) 04/03/24 02:24 Albumin/Globulin Ratio 1.3 (0.9-2) 04/03/24 02:24 Lipase 19 U/L (11-82) 04/03/24 02:24 Code Status & VTE Plan Code Status Full code VTE Prophylaxis Plan VTE Prophylaxis will be ordered: Yes PG Care Time/CCT Total # of Minutes Spent Total Time Spent with Patient: Total time spent is greater than 50% in coordination of care (as documented) at patient's floor/unit and/or counseling patient: Coding Level of Care Code 65356 INT INP/OBS CARE 3/75MIN Diagnoses NSTEMI (non-ST elevated myocardial infarction) I21.4 HFrEF (heart failure with reduced ejection fraction) I50.20 Flash pulmonary edema J81.0 Hypertension I10 CAP (community acquired pneumonia) J18.9 DM2 (diabetes mellitus, type 2) E11.9 Hyperlipidemia E78.5
[2024-04-03] MEDS: HEPARIN SODIUM/DEXTROSE 25,000 UNITS/500 ML BAG IV SCH (04:57)
[2024-04-03] MEDS: HEPARIN SOD (PORCINE) 1000 UNIT/ML IV ONE (04:57)
[2024-04-03] MEDS ORDERED: GLUCOSE 40% GEL 15 GM TUBE PO PRN (06:08)
[2024-04-03] MEDS ORDERED: DEXTROSE 50% 50 ML SYRINGE IV PRN (06:08)
[2024-04-03] MEDS ORDERED: ACETAMINOPHEN 325 MG TAB PO PRN (06:08)
[2024-04-03] MEDS ORDERED: CARBOHYDRATES FOR HYPOGLYCEMIA PO PRN (06:08)
[2024-04-03] MEDS ORDERED: GLUCAGON FOR INJ 1 MG VIAL SQ PRN (06:08)
[2024-04-03] MEDS ORDERED: GLUCOSE 10 TAB/TUBE PO PRN (06:08)
[2024-04-03] MEDS: METOPROLOL SUCC 25MG EXT REL TAB PO STA (06:34)
[2024-04-03] MEDS: Heparin IV Adult Wt-Based Standard w/ INITIAL Bolus Protocol IV STA (06:35)
[2024-04-03] MEDS: AZITHROMYCIN 500 MG in DEXTROSE 5% 250 ML IV SCH (06:42)
--- NOTE | 2024-04-03 06:42 | Emergency Department Note ---
Impression & Plan Acute non-ST elevation myocardial infarction (NSTEMI), CHF (congestive heart failure) admit to [facility] ED Provider Note NAME: MONIQUE HERRMANN AGE: 54 SEX: Male INFORMANT: Patient ED PROVIDER(S): Delisa Fuastin DO CHIEF COMPLAINT: shortness of breath and chest tightness PLAN: Disposition: admit to the [facility] MEDICAL DECISION MAKING: this is a 54-year-old male patient who presents to the emergency department after waking up around 1 AM with chest tightness and shortness of breath. Patient has a history of a recent admission to the hospital for flash pulmonary edema but the patient left AMA. upon discharge from the hospital, the patient had no follow-up with a doctor and has not been taking any medications. Presentation tonight reveals mild pulmonary edema on chest x-ray. Troponin was 2663. BNP was 340. Patient was given a dose of sublingual nitroglycerin which helped his chest discomfort. He was given oral aspirin. He was given of both heparin bolus and started on a heparin drip and a dose of IV Lasix. Patient is willing for admission to the hospital and plans to follow-up with outpatient providers upon discharge. Cussed the case with the [facility] and they will evaluate for further inpatient care. 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 Vital Signs: reviewed and unremarkable Prior/ Outside/ External records reviewed: previous inpatient note was reviewed from recent NSTEMI and CHF Differential Diagnosis: recurrent NSTEMI, pulmonary edema, STEMI Diagnostics, independently interpreted by me: ECG: Sinus tachycardia at [address] segment depression in the inferior and lateral leads. there is no ectopy. Cardiac Monitoring: Sinus tachycardia at a rate of 102 Imaging studies: portable chest x-ray: Congestive heart failure as per my independent interpretation HPI: 54 year old Male arrives for evaluation of shortness of breath and chest tightness. patient awoke from sleep 1 hour ago around 1 AM to go to the bathroom and felt some chest tightness and shortness of breath. patient explains that he quit smoking approximately 6 months ago. Patient does admit that he left AMA recently from the hospital but has been feeling well since that time until getting up to go to the bathroom tonight. PAST MEDICAL HISTORY: See Below, PAST SURGICAL HISTORY: See Below, SOCIAL HISTORY: See Below, HOME MEDICATIONS: none ALLERGIES: None VITALS: See Below PHYSICAL EXAMINATION: HEENT: Head - normocephalic and atraumatic. Pupils are equal, round, and reactive to light. Extraocular eye muscles are intact, and sclera are anicteric. Nose - moist nasal mucosa without discharge. Mouth - moist buccal mucosa. Oropharynx is nonerythematous and there is no tonsillar exudate or edema noted. Neck: Supple; no Cervical lymphadenopathy or JVD appreciated. Heart: Tachycardic rate and regular rhythm. There is a normal S1 and S2 with no murmurs, clicks, or gallops appreciated. Lungs: Clear to auscultation bilaterally with no wheezes, rales, or rhonchi. Abdomen: Soft, completely nontender, nondistended, with good bowel sounds. There are no palpable pulsatile masses or hepatosplenomegaly. There is no guarding, rigidity, or rebound noted. Extremities:Trace lower extremity edema with normal dorsalis pedal and posterior tibial pulses on palpation. Skin: warm and dry with good turgor and no rashes. 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 IV lock was initiated and labs were drawn as above. A twelve-lead EKG was obtained. An order was placed for continuous cardiac monitoring. Portable chest x-ray was performed. The patient was given a dose of oral aspirin. The patient was given a dose of sublingual nitroglycerin for his chest tightness. He was given a dose of IV Lasix. He was bolused with IV heparin and started on a heparin drip. I discussed the case with the [facility] Hospitalist and they will evaluate for further inpatient care. I have personally spent greater than 30 minutes of critical care time in the direct management of this patient. This includes bedside care, interpretation of diagnostic studies, and testing, discussion with consultants, patient, and family members, and other required patient management activities. This 30 minutes is in excess of all separately billable procedures. Past Med/Surg History Problem List (Updated 04/03/24 @ 14:44 by Delisa Faustin DO) CHF (congestive heart failure) (Acute) Acute non-ST elevation myocardial infarction (NSTEMI) (Acute) HFrEF (heart failure with reduced ejection fraction) Hyperlipidemia Hypertension CAP (community acquired pneumonia) DM2 (diabetes mellitus, type 2) NSTEMI (non-ST elevated myocardial infarction) Flash pulmonary edema (Acute) Allergic reaction (Acute) Medical History Medical non-compliance Chronic low back pain Diabetes mellitus Scabies Surgical History No history of previous surgery Family History Denies family history of Ovarian cancer Prostate cancer Myocardial infarction Breast cancer Colorectal cancer Social History Smoking Status: Never smoker Tobacco Type: Cigarettes Age Started Using Tobacco: 30; Age Quit Using Tobacco: 50; packs per day: 2; Cigarettes Per Day: 40; Second Hand Exposure: No; Do You Dip or Chew Tobacco: No; Hx Alcohol Use: No Hx Substance Use: No Preferred Language: Paraguayan Communication Ability: Effective Visual Impairment: No Limitations Hearing Ability: Normal 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 Required: No Beliefs That Will Affect Care: None marital status: Single Current Living Situation: Alone current occupational status: employed current occupation: [employer] Other Information That Helps Us Care for You: No Feels Safe at Home: Yes Safety Concerns: Feels Safe At This Time Childhood Exposure to Second-Hand Smoke: Yes Diet: regular caffeine: No during the past year weight has: decreased > 10 lbs Dental Care, Regularly: Yes Physical Activity Frequency: Daily Sunscreen Use: No Assistive Devices: None Allergies Allergies Allergy/AdvReac Type Severity Reaction Status Date / Time No Known Allergies Allergy Unverified 06/28/21 09:11 Home Meds Previous Rx's Medication Instructions Recorded ibuprofen 600 mg tablet 600 mg PO Q6H PRN pain #30 tabs 07/04/20 blood sugar diagnostic (SlicethepieTouch #50 ea 09/06/20 Verio test strips) blood-glucose meter (SlicethepieTouch #1 ea 09/06/20 Verio Flex Start kit) lancets 33 gauge (OneTouch Delica #100 ea 09/06/20 Lancets) Results & Data (ED) Vital Signs Vital Signs - 24 hr 04/03/24 02:11 04/03/24 02:29 04/03/24 02:29 Temperature 36.6 C Temperature Source Temporal Artery Scan Pulse Rate 102 H Pulse Rate [Apical] 101 H Pulse Rhythm Pulse Rhythm [Apical] Regular Pulse Strength [Apical] Normal Respiratory Rate 18 20 Respiratory Effort / Characteristics Non-Labored Spontaneous Respiratory Depth Normal Respiratory Pattern Regular Blood Pressure 166/93 H Blood Pressure [Left Arm] 172/122 H Blood Pressure Mean 117 Blood Pressure Mean [Left Arm] 138 Blood Pressure Position Sitting Pulse Oximetry 94 92 92 Oxygen Delivery Method Room Air Room Air Room Air Sepsis Recent Fever Within 48 Hours No Sepsis New/Unexplained Change in Mental Status N/A Sepsis Action Taken by Nursing No Action Required 04/03/24 02:30 04/03/24 02:36 04/03/24 03:09 Temperature Temperature Source Pulse Rate 97 H 94 H Pulse Rate [Apical] Pulse Rhythm Pulse Rhythm [Apical] Pulse Strength [Apical] Respiratory Rate 20 24 Respiratory Effort / Characteristics Non-Labored Spontaneous Respiratory Depth Normal Respiratory Pattern Regular Blood Pressure 156/100 H Blood Pressure [Left Arm] Blood Pressure Mean 118 Blood Pressure Mean [Left Arm] Blood Pressure Position Pulse Oximetry 91 93 Oxygen Delivery Method Room Air Sepsis Recent Fever Within 48 Hours Sepsis New/Unexplained Change in Mental Status Sepsis Action Taken by Nursing 04/03/24 03:14 04/03/24 03:27 04/03/24 03:30 Temperature Temperature Source Pulse Rate 93 H 93 H 90 Pulse Rate [Apical] Pulse Rhythm Regular Pulse Rhythm [Apical] Pulse Strength [Apical] Respiratory Rate 22 22 Respiratory Effort / Characteristics Respiratory Depth Respiratory Pattern Blood Pressure 148/96 H Blood Pressure [Left Arm] Blood Pressure Mean 113 Blood Pressure Mean [Left Arm] Blood Pressure Position Pulse Oximetry 93 92 Oxygen Delivery Method Room Air Sepsis Recent Fever Within 48 Hours Sepsis New/Unexplained Change in Mental Status Sepsis Action Taken by Nursing 04/03/24 04:00 04/03/24 04:06 04/03/24 04:18 Temperature Temperature Source Pulse Rate 92 H 90 82 Pulse Rate [Apical] Pulse Rhythm Pulse Rhythm [Apical] Pulse Strength [Apical] Respiratory Rate 24 24 27 H Respiratory Effort / Characteristics Respiratory Depth Respiratory Pattern Blood Pressure 211/131 H 167/106 H 160/105 H Blood Pressure [Left Arm] Blood Pressure Mean 157 126 123 Blood Pressure Mean [Left Arm] Blood Pressure Position Pulse Oximetry 95 94 92 Oxygen Delivery Method Sepsis Recent Fever Within 48 Hours Sepsis New/Unexplained Change in Mental Status Sepsis Action Taken by Nursing 04/03/24 04:21 Temperature Temperature Source Pulse Rate 86 Pulse Rate [Apical] Pulse Rhythm Pulse Rhythm [Apical] Pulse Strength [Apical] Respiratory Rate 23 Respiratory Effort / Characteristics Respiratory Depth Respiratory Pattern Blood Pressure 149/98 H Blood Pressure [Left Arm] Blood Pressure Mean 115 Blood Pressure Mean [Left Arm] Blood Pressure Position Pulse Oximetry 94 Oxygen Delivery Method Sepsis Recent Fever Within 48 Hours Sepsis New/Unexplained Change in Mental Status Sepsis Action Taken by Nursing Laboratory Data 04/03/24 02:24 04/03/24 02:24 Lab Results 04/03/24 Range/Units 02:24 WBC 10.49 (4.8-10.8) K/ul RBC 4.78 (4.70-6.10) M/uL Hgb 14.2 (14.0-18.0) g/dl Hct 42.0 (42.0-52.0) % MCV 87.9 (80.0-100.0) fL MCH 29.7 (25.0-34.0) pg MCHC 33.8 (32.0-36.0) g/dL RDW Std Deviation 43.9 (36.4-46.3) fL RDW Coeff of Romelia 13.6 (11.5-14.5) % Plt Count 262 (130-400) K/uL MPV 11.1 (9.4-12.4) fL Immature Gran % (Auto) 0.6 % Neut % (Auto) 64.2 % Lymph % (Auto) 25.0 % Gillespie % (Auto) 6.8 % Eos % (Auto) 2.7 % Baso % (Auto) 0.7 % Neut # (Auto) 6.75 H (1.40-6.50) K/uL Lymph # (Auto) 2.62 (1.20-3.40) K/uL Gillespie # (Auto) 0.71 H (0.11-0.59) K/uL Eos # (Auto) 0.28 (0.00-0.50) K/uL Baso # (Auto) 0.07 (0.00-0.20) K/uL Immature Gran # (Auto) 0.06 (0.01-0.20) K/uL PT 10.9 (9.0-12.0) Seconds INR 1.0 (0.9-1.1) APTT 27 (21-31) Seconds PTT Ratio 1.0 Sodium 137 (136-145) mmol/L Potassium 3.6 (3.5-5.1) mmol/L Chloride 104 (98-107) mmol/L Carbon Dioxide 26 (21-32) mmol/L Anion Gap 7 (3-11) BUN 18 (6-23) mg/dl Creatinine 0.73 (0.6-1.4) mg/dl Est Cr Clr Drug Dosing 135.6 ml/min Est GFR ( Amer) 121.9 ml/min Est GFR (Non-Af Amer) 105.2 ml/min BUN/Creatinine Ratio 24.7 H (10-20) Glucose 287 H (70-99(Fasting)) mg/dl Calcium 10.1 (8.6-10.3) mg/dl Total Bilirubin 0.4 (0.2-1.0) mg/dl AST 15 (13-39) U/L ALT 15 (7-52) U/L Alkaline Phosphatase 132 H (34-104) U/L Troponin I High Sens 2663.5 H* (0-20) pg/ml B-Natriuretic Peptide 840 H (0-100) pg/ml Total Protein 6.8 (6.0-8.3) gm/dl Albumin 3.8 (3.4-5.0) gm/dl Globulin 3.0 (2.5-4.0) gm/dl Albumin/Globulin Ratio 1.3 (0.9-2) Lipase 19 (11-82) U/L Administered Medications Atorvastatin Calcium (Atorvastatin 40 Mg Tab) 40 mg PO QAM [facility] Stop: 05/03/24 08:59 Last Admin: 04/03/24 09:01 Dose: 40 mg Documented By: PUSHPA Heparin Sodium/Dextrose (Heparin Sodium/Dextrose) 25,000 units in 500 mls @ 32 mls/hr IV .[id number] [facility]; Protocol Stop: 05/03/24 04:14 Last Titration: 04/03/24 11:21 Dose: 1,600 units/hr, 32 mls/hr Documented By: PUSHPA Co-signed By: DLR Admin: 04/03/24 04:57 Dose: 1,500 units/hr, 30 mls/hr Documented By: MANJIT Co-signed By: SG Azithromycin 500 mg/ Dextrose 255 mls @ 125 mls/hr IV Q24H [facility]EREK Stop: 04/10/24 06:59 Last Infusion: 04/03/24 09:34 Dose: Infused Documented By: Admin: 04/03/24 06:42 Dose: 125 mls/hr Documented By: TRAE Ceftriaxone Sodium (Rocephin) 2,000 mg in 50 mls @ 100 mls/hr IV Q24H [facility]EREK Stop: 04/10/24 06:29 Last Infusion: 04/03/24 09:34 Dose: Infused Documented By: Admin: 04/03/24 07:47 Dose: 100 mls/hr Documented By: PUSHPA Insulin Aspart (Insulin Aspart Per Unit Charge) 0 units SC ACHS [facility] Stop: 05/03/24 07:29 Last Admin: 04/03/24 12:25 Dose: 4 units Documented By: PUSHPA Co-signed By: ALAINA Admin: 04/03/24 08:58 Dose: 7 units Documented By: PUSHPA Co-signed By: ALAINA Insulin Glargine (Lantus Per Unit Charge) 10 units SQ BID [facility]EREK Stop: 05/03/24 08:59 Last Admin: 04/03/24 08:59 Dose: 3 units Documented By: PUSHPA Co-signed By: ALAINA Nitroglycerin (Nitroglycerin Sl 0.4 Mg/Tab Tab) 0.4 mg SL Q5M PRN PRN Reason: Chest Pain Stop: 05/03/24 03:56 Last Admin: 04/03/24 05:31 Dose: 0.4 mg Documented By: Admin: 04/03/24 04:03 Dose: 0.4 mg Documented By: MANJIT Potassium Chloride (Potassium Chloride Crtab 20 Meq Tabcr) 40 meq PO BID DEREK Stop: 05/03/24 08:59 Last Admin: 04/03/24 09:04 Dose: 40 meq Documented By: PUSHPA Discontinued Medications Aspirin (Aspirin Chew 324 Mg) 324 mg PO NOW STA Stop: 04/03/24 03:54 Last Admin: 04/03/24 04:03 Dose: 324 mg Documented By: MANJIT Fentanyl Citrate (Fentanyl Citrate Pf 100 Mcg/2 Ml Vial) Confirm Administered Dose 100 mcg .ROUTE .STK-MED ONE Stop: 04/03/24 12:43 Last Increment: 04/03/24 13:44 Dose: 25 mcg Documented By: COOKIE Furosemide (Furosemide 40 Mg/4 Ml Vial) 40 mg IV ONE ONE Stop: 04/03/24 03:54 Last Admin: 04/03/24 04:03 Dose: 40 mg Documented By: MANJIT Furosemide (Furosemide 40 Mg/4 Ml Vial) 40 mg IV BID DEREK Stop: 05/03/24 08:59 Last Admin: 04/03/24 09:02 Dose: 40 mg Documented By: PUSHPA Heparin Sodium (Porcine) (Heparin Sod (Porcine) 1000 Unit/Ml) 1 units IV NOW ONE Stop: 04/03/24 04:11 Last Admin: 04/03/24 04:57 Dose: 7,000 units Documented By: MANJIT Co-signed By: SG Heparin Sodium (Porcine) (Heparin (Porcine) 1000 Unit/Ml 10 Ml (Sausage Linker Use Only)) Confirm Administered Dose 10,000 units .ROUTE .STK-MED ONE Stop: 04/03/24 12:43 Last Admin: 04/03/24 13:45 Dose: 3,500 units Documented By: COOKIE Heparin Sodium/Dextrose (Heparin Iv Adult Wt-Based Standard W/ Initial Bolus Protocol) 1 each IV NOW STA; Protocol Stop: 04/03/24 03:56 Last Admin: 04/03/24 06:35 Dose: Not Given Documented By: RANDI Heparin Sodium/Sodium Chloride (Heparin In Nss Infusion 1000 Unit/500 Ml (2 U/Ml) Bag) Confirm Administered Dose 3,000 units IV .STK-MED ONE Stop: 04/03/24 12:43 Last Admin: 04/03/24 13:45 Dose: 3,000 units Documented By: SHARITA Iodixanol (Iodixanol (Visipaque) 320 Mg/Ml 100ml) Confirm Administered Dose 1 ml IV .STK-MED ONE Stop: 04/03/24 12:44 Last Admin: 04/03/24 13:46 Dose: 65 ml Documented By: SHARITA Ioversol (Optiray 350) Confirm Administered Dose 1 ml .ROUTE .STK-MED ONE Stop: 04/03/24 12:44 Last Admin: 04/03/24 14:06 Dose: Not Given Documented By: PUSHPA Metoprolol Succinate (Metoprolol Succ 25mg Ext Rel Tab) 25 mg PO NOW STA Stop: 04/03/24 04:43 Last Admin: 04/03/24 06:34 Dose: 25 mg Documented By: RANDI Metoprolol Succinate (Metoprolol Succ 25mg Ext Rel Tab) 25 mg PO BID DEREK Stop: 05/03/24 08:59 Last Admin: 04/03/24 09:02 Dose: 25 mg Documented By: PUSHPA Midazolam HCl (Midazolam Hcl 1 Mg/Ml 2ml Vial) Confirm Administered Dose 2 mg .ROUTE .STK-MED ONE Stop: 04/03/24 12:42 Last Increment: 04/03/24 13:44 Dose: 1 mg Documented By: COOKIE Nicardipine HCl (Nicardipine Hcl Inj 2.5 Mg/Ml 10 Ml Amp) Confirm Administered Dose 25 mg .ROUTE .STK-MED ONE Stop: 04/03/24 12:43 Last Admin: 04/03/24 13:45 Dose: 25 mg Documented By: SHARITA Nitroglycerin/Dextrose (Nitroglycerin/D5w 100mcg/Ml 20ml Syr) Confirm Administered Dose 2,000 mcg .ROUTE .STK-MED ONE Stop: 04/03/24 12:44 Last Admin: 04/03/24 13:46 Dose: 2,000 mcg Documented By: SHARITA Imaging Data Radiologist's Impression: Chest X-Ray 04/03/24 03:03 XR chest 1V portable HISTORY: 54 years-old Male Chest pain, nonspecific COMPARISON: 03/29/2024 TECHNIQUE: AP view of the chest FINDINGS: Cardiac silhouette is enlarged. No pneumothorax identified. Probable trace pleural effusions. Bones appear grossly intact. Mixed interstitial and alveolar opacities are redemonstrated which are similar to the prior study. IMPRESSION: 1. Cardiomegaly with persistent mixed interstitial and alveolar opacities suggestive of pulmonary edema versus pneumonia. 2. Trace pleural effusions. ACT 112: Negative or not required by law. The above report was generated using voice recognition software. It may contain grammatical, syntax or spelling errors. Electronically signed by: Niall Meyer M.D. 04/03/2024 7:00 AM Discharge Plan Visit Data Chief Complaint: Shortness of Breath/Dyspnea Stated Complaint: HARD TO BREATHE,CHEST TIGHTNESS ED Provider: Delisa Faustin Discharge Problem: Acute non-ST elevation myocardial infarction (NSTEMI), CHF (congestive heart failure) Patient Disposition: Admitted As Inpatient Discharge Instructions Interventions: ED Discharge Assessment Last Done: 04/03/24 05:28
--- NOTE | 2024-04-03 07:02 | XRay Report ---
XR chest 1V portable HISTORY: 54 years-old Male Chest pain, nonspecific COMPARISON: 03/29/2024 TECHNIQUE: AP view of the chest FINDINGS: Cardiac silhouette is enlarged. No pneumothorax identified. Probable trace pleural effusions. Bones a ppear grossly intact. Mixed interstitial and alveolar opacities are redemonstrated which are similar to the prior study. IMPRESSION: 1. Cardiomegaly with persistent mixed interstitial and alveolar opacities suggestive of pulmonary tashia ma versus pneumonia. 2. Trace pleural effusions. ACT 112: Negative or not required by law. The above report was generated using voice recognition software. It may contain grammatical, syntax o r spelling errors. Electronically signed by: Niall Meyer M.D. 04/03/2024 7:00 AM
[2024-04-03 07:11] LABS: Magnesium 1.4 mg/dl (1.7-2.4)
[2024-04-03 07:19] LABS: Troponin I High Sensitivity 2720.4 pg/ml (0-20)
[2024-04-03] MEDS: cefTRIAXone SODIUM 2,000 MG/50 ML BAG IV SCH (07:47)
[2024-04-03] MEDS: INSULIN ASPART PER UNIT CHARGE SC SCH (08:58)
[2024-04-03] MEDS: LANTUS PER UNIT CHARGE SQ SCH (08:59)
[2024-04-03] MEDS: ATORVASTATIN 40 MG TAB PO SCH (09:01)
[2024-04-03] MEDS: METOPROLOL SUCC 25MG EXT REL TAB PO SCH (09:02)
[2024-04-03] MEDS: FUROSEMIDE 40 MG/4 ML VIAL IV SCH (09:02)
[2024-04-03] MEDS: POTASSIUM CHLORIDE CRTAB 20 MEQ TABCR PO SCH (09:04)
--- NOTE | 2024-04-03 10:29 | Cardiology Consultation ---
Date of Consultation April 03, 2024 Assessment & Plan (1) HFrEF (heart failure with reduced ejection fraction): Cardiomyopathy of unknown etiology. He has only mild volume overload at the moment. If he can in fact lay flat for catheterization then I recommend he undergo coronary angiography today. This will have significant impact on treatment strategies. We will need to gently diurese him. His blood pressure has been quite high so we are not at risk of hypovolemia causing hypotension at this point. Additional recommendations pending results of his catheterization. Most likely his medical regimen will be targeted at chronic systolic heart failure and include a heart failure indicated beta-jie, Entresto, SGLT2 inhibitor, loop diuretic, plus or minus Aldactone. Also, we are getting a repeat echo to see if there is been any worsening or improvement in his EF, worsening of his valvular function, and excluding mechanical complication from recent [place]. If his EF remains below 35% then he would be recommended for a wearable cardiac defibrillator. (2) NSTEMI (non-ST elevated myocardial infarction): On previous admission his peak troponin was over 24,000. Currently it is around 2500 so he is trending down. I do not think today's presentation is indicative of new ACS but is rather just the result of what ever triggered his elevated troponin several days ago. Once we have completed coronary evaluation we will know better if there is any need for either surgical or percutaneous revascularization. Will also know whether or not we should be treating him for coronary artery disease specifically. Further recommendations pending results. (3) Hyperlipidemia: Patient is high risk (diabetes). High intensity statin therapy is recommended. This is regardless of his coronary status. He should be on a atorvastatin 40 to 80 mg daily at minimum. (4) Hypertension: Blood pressure was very high earlier which certainly can contribute to his pulmonary edema. Not sure if he has renal artery stenosis but if he does not respond well to typical medications then I would suggest this be evaluated as well. In the meantime, heart failure indicated beta-jie, Entresto/BASSAM inhibitor/ARB as tolerated, plus or minus additional adjuvant therapy. History of Present Illness Reason for Consultation: Congestive heart failure of unknown etiology Non-ST elevation [place] Attending Physician: Wilfred Stephens History of Present Illness 54-year-old diabetic male who originally presented on 03/29/2024 with complaint of shortness of breath and orthopnea. CT scan was performed suggesting bilateral infiltrates and additional changes consistent with congestive heart failure. Also with physical exam evidence of congestive heart failure including lower extremity edema, JVD, and bilateral crackles in the lungs. He also had hypoxia, mild acidosis with elevated lactate level, and responded to BiPAP. EKG was without acute ischemic changes but patient had a markedly abnormal troponin level and an echocardiogram was performed. Unfortunately, the patient left AGAINST MEDICAL ADVICE prior to the echo being interpreted. The echo demonstrated severe LV systolic dysfunction with global hypokinesis, EF of 25- 30%, mild to moderate mitral regurgitation, mild tricuspid regurgitation and there was a suggestion of small apical LV thrombus. Last evening the patient awoke with sudden onset shortness of breath and chest pressure although he denies other type of chest pain. He therefore presented to the emergency department where again his troponin was elevated. I have been asked to see him regarding workup and treatment. Presently, the patient denies any ongoing chest pain, heaviness, or tightness. He is not short of breath lying in bed but he does sit up although he denies that he needs to sit up to breathe. He denies syncope, near syncope, orthopnea, PND, racing heartbeat, palpitations, or edema. He has a remote smoking history having smoked 2 packs/day. It seems that the patient has a history of medication/medical recommendation noncompliance. Patient is currently on IV antibiotics for the previously identified pneumonia. Patient has never had a heart catheterization. We discussed the risk, benefits, and alternatives. He voiced understanding. All of his questions were answered in full. He wished to proceed with catheterization plus or minus PCI as indicated. Allergies Allergy/AdvReac Type Severity Reaction Status Date / Time No Known Allergies Allergy Unverified 06/28/21 09:11 Home Medications Medication Instructions Recorded Confirmed Type ibuprofen 600 mg tablet 600 mg PO Q6H PRN pain #30 tabs 07/04/20 04/03/24 Rx blood sugar diagnostic (ChuguobangTouch #50 ea 09/06/20 04/03/24 Rx Verio test strips) blood-glucose meter (OneTouch #1 ea 09/06/20 04/03/24 Rx Verio Flex Start kit) lancets 33 gauge (OneTouch Delica #100 ea 09/06/20 04/03/24 Rx Lancets) Patient History Medical History Medical non-compliance Chronic low back pain Diabetes mellitus Scabies Surgical History No history of previous surgery Family History Denies family history of Ovarian cancer Prostate cancer Myocardial infarction Breast cancer Colorectal cancer Social History Smoking Status: Never smoker Tobacco Type: Cigarettes Age Started Using Tobacco: 30; Age Quit Using Tobacco: 50; packs per day: 2; Cigarettes Per Day: 40; Second Hand Exposure: No; Do You Dip or Chew Tobacco: No; Hx Alcohol Use: No Hx Substance Use: No Preferred Language: Bengali Communication Ability: Effective Visual Impairment: No Limitations Hearing Ability: Normal Material Requirements Worker Required: No Beliefs That Will Affect Care: None marital status: Single Current Living Situation: Alone current occupational status: employed current occupation: [employer] Other Information That Helps Us Care for You: No Feels Safe at Home: Yes Safety Concerns: Feels Safe At This Time Childhood Exposure to Second-Hand Smoke: Yes Diet: regular caffeine: No during the past year weight has: decreased > 10 lbs Dental Care, Regularly: Yes Physical Activity Frequency: Daily Sunscreen Use: No Assistive Devices: None Review of Systems Review of Systems: Negative except as per HPI Physical Exam Constitutional: WD/WN, vitals as above (Over optimal weight, ill-appearing middle-age male) Eyes: Extraocular muscles intact. Sclera are anicteric. ENMT: Oral mucosa is pink moist and intact Neck: No JVD Respiratory: Bibasilar dullness and scattered crackles. Fair air movement. Cardiovascular: Regular rate and rhythm. S4 gallop. Soft systolic murmur. No edema. 2+ distal pulses. Musculoskeletal: no cyanosis or clubbing, extremities motor strength 5/5 Neurologic: Cognition intact. Speech fluent. No focal deficits. No tremor. Psychiatric: A+Ox3, euthymic affect Results & Data Vital Signs (Past 12 Hours) Vital Signs Temp Pulse Pulse Pulse Resp BP BP 04/03/24 07:46 36.5 C 82 20 131/88 04/03/24 06:10 04/03/24 06:10 36.9 C 76 20 138/82 04/03/24 06:08 04/03/24 06:08 36.9 C 76 20 138/82 04/03/24 04:51 78 24 146/90 H 04/03/24 04:21 86 23 149/98 H 04/03/24 04:18 82 27 H 160/105 H 04/03/24 04:06 90 24 167/106 H 04/03/24 04:00 92 H 24 211/131 H 04/03/24 03:30 90 04/03/24 03:27 93 H 22 148/96 H 04/03/24 03:14 93 H 22 04/03/24 03:09 94 H 24 04/03/24 02:36 97 H 20 156/100 H 04/03/24 02:30 04/03/24 02:29 101 H 20 172/122 H 04/03/24 02:29 04/03/24 02:11 36.6 C 102 H 18 166/93 H Pulse Ox Pulse Ox O2 Del Method O2 Del Method 04/03/24 07:46 97 Room Air 04/03/24 06:10 Room Air 04/03/24 06:10 97 Room Air 04/03/24 06:08 97 Room Air 04/03/24 06:08 97 Room Air 04/03/24 04:51 97 04/03/24 04:21 94 04/03/24 04:18 92 04/03/24 04:06 94 04/03/24 04:00 95 04/03/24 03:30 04/03/24 03:27 92 04/03/24 03:14 93 Room Air 04/03/24 03:09 93 04/03/24 02:36 91 04/03/24 02:30 Room Air 04/03/24 02:29 92 Room Air 04/03/24 02:29 92 Room Air 04/03/24 02:11 94 Room Air PG Care Time/CCT Total # of Minutes Spent Total Time Spent: 60 Total Time Spent with Patient: Total time spent is greater than 50% in coordination of care (as documented) at patient's floor/unit and/or counseling patient: Coding Level of Care Code 83772 IN/OBS CONSULT LVL 4,60M Diagnoses HFrEF (heart failure with reduced ejection fraction) I50.20 NSTEMI (non-ST elevated myocardial infarction) I21.4 Hyperlipidemia E78.5 Hypertension I10
[2024-04-03 10:58] LABS: ANTI-Xa, UFH(UnfractionatedHep 0.21 IU/ml (0.3-0.7)
--- NOTE | 2024-04-03 12:22 | XCELERA ---
[id number]
--- NOTE | 2024-04-03 12:30 | Electrocardiogram Report ---
Test Reason : Blood Pressure : */* mmHG Vent. Rate : 108 BPM Atrial Rate : 108 BPM P-R Int : 168 ms QRS Dur : 108 ms QT Int : 328 ms P-R-T Axes : 62 66 73 degrees QTcB Int : 439 ms Sinus tachycardia Possible Left atrial enlargement Abnormal ECG When compared with ECG of 30-Mar-2024 03:39, T wave inversion no longer evident in Anterior leads Confirmed by Joseph Rousseau ([id number]) on 04/03/2024 12:30:05 PM Referred By: REFERRED SELF Confirmed By: Joseph Rousseau
[2024-04-03] MEDS: MIDAZOLAM HCL 1 MG/ML 2ML VIAL ONE (13:44)
[2024-04-03] MEDS: fentaNYL citrate PF 100 MCG/2 ML VIAL ONE (13:44)
[2024-04-03] MEDS: HEPARIN (PORCINE) 1000 UNIT/ML 10 ML (CATH LAB USE ONLY) ONE (13:45)
[2024-04-03] MEDS: niCARdipine HCL INJ 2.5 MG/ML 10 ML AMP ONE (13:45)
[2024-04-03] MEDS: NITROGLYCERIN/D5W 100MCG/ML 20ML SYR ONE (13:46)
[2024-04-03] MEDS: IODIXANOL (VISIPAQUE) 320 MG/ML 100ML IV ONE (13:46)
--- NOTE | 2024-04-03 13:52 | Post Anesthesia Assessment ---
Date of Service April 03, 2024 Post Sedation Assessment Vital Signs Temp Pulse Pulse Pulse Resp BP BP 04/03/24 12:53 72 14 124/79 04/03/24 11:56 36.4 C L 74 20 128/85 04/03/24 07:46 36.5 C 82 20 131/88 04/03/24 07:40 83 04/03/24 07:40 04/03/24 06:10 04/03/24 06:10 36.9 C 76 20 138/82 04/03/24 06:08 04/03/24 06:08 36.9 C 76 20 138/82 04/03/24 04:51 78 24 146/90 H 04/03/24 04:21 86 23 149/98 H 04/03/24 04:18 82 27 H 160/105 H 04/03/24 04:06 90 24 167/106 H 04/03/24 04:00 92 H 24 211/131 H 04/03/24 03:30 90 04/03/24 03:27 93 H 22 148/96 H 04/03/24 03:14 93 H 22 04/03/24 03:09 94 H 24 04/03/24 02:36 97 H 20 156/100 H 04/03/24 02:30 04/03/24 02:29 101 H 20 172/122 H 04/03/24 02:29 04/03/24 02:11 36.6 C 102 H 18 166/93 H Pulse Ox Pulse Ox O2 Del Method O2 Del Method 04/03/24 12:53 96 Room Air 04/03/24 11:56 97 Room Air 04/03/24 07:46 97 Room Air 04/03/24 07:40 04/03/24 07:40 Room Air 04/03/24 06:10 Room Air 04/03/24 06:10 97 Room Air 04/03/24 06:08 97 Room Air 04/03/24 06:08 97 Room Air 04/03/24 04:51 97 04/03/24 04:21 94 04/03/24 04:18 92 04/03/24 04:06 94 04/03/24 04:00 95 04/03/24 03:30 04/03/24 03:27 92 04/03/24 03:14 93 Room Air 09/20/24 03:09 93 04/03/24 02:36 91 04/03/24 02:30 Room Air 04/03/24 02:29 92 Room Air 04/03/24 02:29 92 Room Air 04/03/24 02:11 94 Room Air Recovery Score Activity: Moves 4 extremities Respiration: Deep Breath/Cough Circulation: +/-20% PreAnes Value Consciousness: Fully Awake Oxygen Saturation: > 92% On Room Air Discharge Sedation Level of Care: Fast Track Phase II Post Sedation Plan On clinical assessment, the patient appears to have tolerated the sedation without complications. Patient is recovering as anticipated. Patient will continue to be monitored by nursing and may be discharged when sedation discharge criteria are met per below protocol. Upon Completions of procedure up to 15 minutes continue every 5 minute vital signs and the P.A.R. score; then discharge to a Phase I or Fast Track to Phase II per the following guidelines: * Discharge Patient to appropriate Phase II area if PAR is 8 or greater or return to pre- procedure baseline. The post - procedure orders will be as directed. * If PAR score is less than 8 or not return to pre-procedure baseline then patient will follow Phase I monitoring till PAR is reached for Phase II. The Phase I may be done in procedure room or may call to secure a Phase I area. * If naloxone or flumazenil are used for reversal, hold in Phase I for continued monitoring from when last reversal dose was given for a minimum of 60 minutes or longer pending the nurse and/or physician discretion of patient condition before discharge to Phase II. Please call the Sedation Physician to re-evaluate and complete post-note for discharge to Phase II area. Do NOT discharge from procedure sedation or Phase 1 until post- sedation evaluation note is complete by procedure /sedation MD Sedation Discharge Instructions to be given to the patient at discharge to home. [facility] Procedure Codes (Charges) Indication for Procedure Indication for procedure: Cardiomyopathy Non-ST elevation [place] Sedation/Anesthesia Procedure 1: Sedation/Anesthesia: 16710 Mod Sedation by the same physician;Init15 Min Child Age 5 & Up (Initial 15-minute, start time 1318) Total Sedation Time (minutes): 19 Procedure 2: Sedation/Anesthesia: 20034 Mod Sedation by the same physician; Ea [id number] Minutes (Additional formalin, end time 1337) Total Sedation Time (minutes): 19
--- NOTE | 2024-04-03 13:57 | Cardiac Catheterization ---
[facility] Data: Contact Centre Supervisor Cardiac Status Clinical evaluation leading to the procedure CAD Presenation: Non STEMI Anginal Classification: CCS IV (Dyspnea) Heart Failure: NYHA Class: CCS IV Cardiogenic Shock within 24 Hours: No Cardiac Arrest within 24 Hours: No Imaging Studies Past 6 Months: Yes Stress Studies Past 6 Months: No Coronary Anatomy Dominant: Right Left Main (% Stenosis): Distal (20%) LAD (% Stenosis): Proximal (Ulcerated 30 to 50%), Mid (Up to 95%) and Distal (70% followed by 60 to 70%) D1 (% Stenosis): Ostial (95%) D2 (% Stenosis): Ostial (90%) D3 (% Stenosis): Normal (Mild scattered) Circumflex (% Stenosis): Mid (Long eccentric 50 to 70%) and Distal (99%) OM1 (% Stenosis): Proximal (70%) OM2 (% Stenosis): Proximal (99%) OM3 (% Stenosis): Normal RCA (% Stenosis): Proximal (100%) R PDA (% Stenosis): Normal R PL1 (% Stenosis): Normal Diagnostic Physicians Name: Osman Hernandez MD, PhD Closure Device Percutaneous Entry Location: Radial Closure Device: Radial Band Recommendations: Medical Therapy and/or Counseling and CABG Cardiac Cath Procedure Full Procedure Date April 03, 2024 Pre-Procedure Diagnosis Pre-Procedure Diagnosis: Non STEMI and Cardiomyopathy AUC Score AUC Score: 08 Post-Procedure Diagnosis Post-Procedure Diagnosis: Severe CAD and Decreased LV Systolic Function Procedure(s) Performed Procedure(s) Performed: Coronary Angiography and Ultrasound Guided Vascular Access Site Engineer Osman Hernandez MD, PhD Estimated Blood Loss Estimated Blood Loss: Less than 5 cc Medication(s) Medication(s): Fentanyl, Heparin, Lidocaine 1%, Nicardipine, Nitroglycerin and Versed Summary of Findings Brief description: Patient was brought to the cardiac catheterization suite where he was shaved and prepped in a sterile fashion. Sedated using IV Versed and fentanyl. Soft tissues of the right wrist were anesthetized using 2 mL 1% Xylocaine. Using the ultrasound for guidance (image saved), the right radial artery was accessed and a 6 Micronesian radial artery glide sheath was placed. Patient was provided anticoagulation with IV heparin and antispasmodics including nicardipine and nitroglycerin. All catheters were advanced and exchanged over a 0.035 J-tip wire. Left coronary angiography was performed in orthogonal views using a 5 Micronesian [place] 4 diagnostic catheter. Right coronary angiography was performed in orthogonal views using a 5 Micronesian [place] 4 diagnostic catheter. Diagnostic catheters were removed. Left heart cath and left ventriculogram were not performed secondary to known LV thrombus. Radial artery sheath was removed. Hemostasis was obtained using a TR band. Patient remained hemodynamically stable and asymptomatic. He was returned to the recovery area. This ended the case. Coronary angiography findings: [id number] vessel bifurcating into LAD and circumflex. Distal 20% stenosis [id number] and transapical. First branch is a large septal trunk. There is a medium to large second septal branch as well. There is a small to medium caliber first diagonal followed by a small caliber second diagonal and then a medium caliber branching third diagonal. The proximal LAD has 30 to 50% ulcerated plaque. Mid segment has a long up to 95% stenosis. The distal LAD after the second diagonal has a tubular 70% stenosis. The distal LAD after the third diagonal has scattered plaques of up to 60 to 70% narrowing. Ostium of the first diagonal has 95% stenosis, ostium of the second diagonal has 90% stenosis the third diagonal has diffuse mild disease. LCx-this is large caliber and nondominant. Almost immediately it gives a large branching OM1. This has a proximal 70% stenosis. The mid circumflex in the AV groove has a long eccentric 50 to 70% stenosis. From this segment originates a long branching but small caliber vessel which has proximal up to 99% stenosis. The distal AV groove circumflex has 99% stenosis and provides a small to medium caliber OM 3. [id number] and dominant. Just after the ostium and is 100% occluded. It does provide right to right collaterals through the RV marginal branch. There are also [id number]-drnhj collaterals and from these we can see that there is a large PDA and a large branching posterolateral. Summary: 1. Severe multivessel coronary artery disease not appropriate for PCI. No definitive culprit lesion. 2. Recommend referral to tertiary center for "heart team" evaluation regarding surgical versus percutaneous revascularization. 3. Initiate guideline directed medical therapy for secondary prevention of coronary disease to include beta-jie, aspirin 81 mg daily, high intensity statin therapy, and BASSAM inhibitor or angiotensin receptor jie. 4. We will alter his medical regimen for his now known ischemic cardiomyopathy to include a heart failure indicated beta-jie, Entresto, loop diuretic, Jardiance, and will consider spironolactone. 5. well service floor worker referral for the following issues: A. Patient will need a LifeVest fitment B. Patient will need assistance regarding coverage of his medications C. Patient will need medical assistance (Medicaid) application completed as he will need tertiary referral for CABG or complex/high risk multivessel PCI. Hemodynamics Rest Ao:: 95/67 mmHg Final Ao: 96/71 mmHg LV: Not performed Recommendations Recommendations: Medical Therapy and/or Counseling and CABG Radiation Exposure (mGy) 910 mGy, fluoroscopy time 1.2 minutes Contrast (mls) 65 cc Anesthesia 1 mg Versed, 75 mcg fentanyl. Start time 1318, end time 1337 Procedural Complication(s) None Disposition Contact Centre Supervisor Holding/Recovery I attest to the content of the Intraoperative Record and any orders documented therein. Any exceptions are noted below. [facility] Card Cath Procedure Codes Cardiac Catheterization Procedure 1: Cardiovascular Cath Procedures: 81725 Coronaries Therapeutic Services & Ancillary Procedure 2: Cardiovascular Tx and Anc Procedures: 61514 Ultrasonic Guidance Vascular Access Moderate Sedation Procedure 1: Sedation/Anesthesia: 26200 Mod Sedation by the same physician;Init15 Min Child Age 5 & Up (Initial 15 minutes, start time 1318) Procedure 2: Sedation/Anesthesia: 03637 Mod Sedation by the same physician; Ea [id number] Minutes (Additional formalin, end time 1337) PG Care Time/CCT Total # of Minutes Spent Total Time Spent with Patient: Total time spent is greater than 50% in coordination of care (as documented) at patient's floor/unit and/or counseling patient:
[2024-04-03] MEDS: OPTIRAY 350 ONE (14:06)
[2024-04-03] MEDS: carvediloL 3.125 MG TAB PO SCH (17:16)
[2024-04-03] MEDS: FUROSEMIDE 20 MG TAB PO SCH (17:16)
[2024-04-03] MEDS: VALSARTAN/SACUBITRIL 26/24MG TAB PO SCH (21:51)
[2024-04-03 23:33] LABS: ANTI-Xa, UFH(UnfractionatedHep 0.16 IU/ml (0.3-0.7)
[2024-04-04] MEDS: HEPARIN SOD (PORCINE) 1000 UNIT/ML IV ONE ×2 (00:14→08:32)
[2024-04-04] MEDS: MAGNESIUM SULFATE / D5W 1 GM/100 ML BAG IV SCH (02:17)
[2024-04-04 04:14] VITALS: RESP 18
[2024-04-04 07:06] LABS: Basophils # (auto) 0.08 K/uL (0.00-0.20); Basophils % (auto) 0.8 %; Eosinophils # (auto) 0.32 K/uL (0.00-0.50); Eosinophils % (auto) 3.1 %; Hematocrit (blood only) 41.6 % (42.0-52.0); Hemoglobin 13.9 g/dl (14.0-18.0); Immature Granulocytes # (auto) 0.06 K/uL (0.01-0.20); Immature Granulocytes % (auto) 0.6 %; Lymphocytes # (auto) 2.78 K/uL (1.20-3.40); Lymphocytes % (auto) 27.3 %; Mean Corpuscular Hemoglobin 29.2 pg (25.0-34.0); Mean Corpuscular Hgb Conc 33.4 g/dL (32.0-36.0); Mean Corpuscular Volume 87.4 fL (80.0-100.0); Mean Platelet Volume 10.6 fL (9.4-12.4); Monocytes # (auto) 0.67 K/uL (0.11-0.59); Monocytes % (auto) 6.6 %; Neutrophils # (auto) 6.26 K/uL (1.40-6.50); Neutrophils % (auto) 61.6 %; Platelet Count 237 K/uL (130-400); RDW Coefficient of Variation 13.8 % (11.5-14.5); RDW Standard Deviation 43.7 fL (36.4-46.3); Red Blood Count 4.76 M/uL (4.70-6.10); White Blood Count 10.17 K/ul (4.8-10.8)
[2024-04-04 07:27] LABS: ANTI-Xa, UFH(UnfractionatedHep 0.15 IU/ml (0.3-0.7)
[2024-04-04 07:29] LABS: Albumin Level 3.5 gm/dl (3.4-5.0); BUN Creatinine Ratio 23.8 (10-20); Calcium 9.9 mg/dl (8.6-10.3); Creatinine Clr Calc Pharmacy 157.2 ml/min; Est GFR (African American) 129.5 ml/min; Est GFR (Non-African American) 111.7 ml/min; Magnesium 2.1 mg/dl (1.7-2.4); Phosphorus 2.3 mg/dl (2.5-4.9); Potassium 4.3 mmol/L (3.5-5.1)
[2024-04-04] MEDS: ASPIRIN 81 MG ECTAB PO SCH (08:39)
[2024-04-04] MEDS: EMPAGLIFLOZIN 10 MG TAB PO SCH (08:39)
[2024-04-04] MEDS ORDERED: ASPIRIN 81 MG ECTAB PO SCH (09:00)
--- NOTE | 2024-04-04 11:32 | Electrocardiogram Report ---
Test Reason : Blood Pressure : */* mmHG Vent. Rate : 67 BPM Atrial Rate : 67 BPM P-R Int : 168 ms QRS Dur : 96 ms QT Int : 456 ms P-R-T Axes : 12 66 83 degrees QTcB Int : 481 ms Normal sinus rhythm Prolonged QT Abnormal ECG When compared with ECG of 03-Apr-2024 02:19, Vent. rate has decreased by [address] elevation now present in Inferior leads ST no longer depressed in Lateral leads Nonspecific T wave abnormality no longer evident in Lateral leads Confirmed by Jesus Villela ([id number]) on 04/04/2024 11:32:28 AM Referred By: REFERRED SELF Confirmed By: Jesus Villela
[2024-04-04 14:58] LABS: ANTI-Xa, UFH(UnfractionatedHep 0.22 IU/ml (0.3-0.7)
[2024-04-04] MEDS: PNEUMOCOCCAL VACCINE (PCV20) 20-VAL CONJ-DIP CRM/PF 0.5 ML SYR IM ONE (18:28)
[2024-04-04 20:19] VITALS: BP 119/76; PULSE 69; TEMP 97.5; O2SAT 97
--- NOTE | 2024-04-07 09:12 | Discharge Summary ---
Discharge Summary Date of Service April 04, 2024 Principal Dx & Hospital Course #1 = Principal Diagnosis (1) NSTEMI (non-ST elevated myocardial infarction): (2) HFrEF (heart failure with reduced ejection fraction): (3) Flash pulmonary edema: (4) Hypertension: (5) CAP (community acquired pneumonia): (6) DM2 (diabetes mellitus, type 2): (7) Hyperlipidemia: Plan NSTEMI/acute HFrEF/hypertension/apical thrombus- The patient will be admitted to telemetry for serial cardiac enzymes, serial EKG's, cardiac rhythm monitoring Troponin 2663.5 with follow-up pending. Troponin on 03/30 was 24,053.4 Initial evaluation of the patient was on 03/30/2024, and left AMA later on the same day. Echocardiogram on 03/30 with ejection fraction 25-30%, with apical thrombus Heparin drip standard dosing per protocol Aspirin 324 mg given in ED, and continue 81 mg daily Furosemide 40 mg IV twice daily Klor-Con 40 mEq p.o. twice daily Metoprolol succinate 25 mg p.o. now, and then 25 mg p.o. twice daily Nitroglycerin sublingual every 5 minutes as needed chest pain Consult cardiology Summary: 1. Severe multivessel coronary artery disease not appropriate for PCI. No definitive culprit lesion. 2. Recommend referral to tertiary center for "heart team" evaluation regarding surgical versus percutaneous revascularization. 3. Initiate guideline directed medical therapy for secondary prevention of coronary disease to include beta-jie, aspirin 81 mg daily, high intensity statin therapy, and BASSAM inhibitor or angiotensin receptor ije. 4. We will alter his medical regimen for his now known ischemic cardiomyopathy to include a heart failure indicated beta-jie, Entresto, loop diuretic, Jardiance, and will consider spironolactone. 5. 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 Patient will need a LifeVest fitment B. Patient will need assistance regarding coverage of his medications C. Patient will need medical assistance (Medicaid) application completed as he will need tertiary referral for CABG or complex/high risk multivessel PCI. Due to above findings, patient was transferred to tertiary setting for CABG Diabetes mellitus- Hemoglobin A1c 10.9 on 03/30/2024 Glargine 10 units subcu twice daily Accu-Cheks before meals and at bedtime, with SSI Hyperlipidemia- Empirically placed on atorvastatin 40 mg every morning Community-acquired pneumonia- Ceftriaxone 2 g IV every 24 hours Azithromycin 500 mg IV every 24 hours Admission HPI Per Admitting Provider The patient is a 54-year-old male with a past medical history including diabetes mellitus, NSTEMI, flash pulmonary edema, acute HFrEF with ejection fraction 25- 30%, apical thrombus and pneumonia, who left the hospital AMA during admission from 03/30/2024. The patient presents to the emergency department after being awoken from sleep with a recurrence of his chest pain and shortness of breath at about 1:00 this morning. Discharge Exam The patient is awake, alert and oriented 3, well developed and well nourished, normocephalic and atraumatic, lying in bed and in no acute distress. HEENT--PERRL, EOMI, mucous membranes and oropharynx normal Neck--supple. No JVD. No bruits. Thyroid normal, trachea midline, no adenopathy. Heart--normal S1 and S2. No murmurs, rubs or gallops. Lungs--crackles at the bases to group home up bilaterally. No respiratory distress, no accessory muscle use. Abdomen--normal bowel sounds and soft. Nontender. Nondistended, no hernias or masses, no organomegaly. Extremities--no cyanosis or clubbing. Trace pretibial pitting edema. Dermatologic--normal skin turgor, normal color, no abnormal lymph nodes, no rash. Neurologic--cranial nerves II through XII grossly intact. Rheumatologic--normal range of motion. Psychiatric--normal affect. Discharge Plan Discharge Items Patient Disposition: Transfer Acute Care Hospital Reason For Visit: NSTEMI, CHF, PNEUMONIA Discharge Diagnosis: NSTEMI Activity: Resume your previous activity Non-emergency contact: Primary Care Provider Call non-emergency contact if: you have any medication questions Follow-up/Referrals: PCP,NO [Primary Care Provider] - Diet: Regular Addtl Attending Provider Instructions: Continue IV heparin. You are being transferred for possible CABG. Pending Studies at Discharge: No Stand-Alone Forms: My [facility] Skilled Items Patient informed of condition?: Yes DNR: No Discharge Level of Care: Other Communicable Disease: No Discharge Prognosis: Stable Lines: Peripheral IV Urinary Catheter: No Medications and DC Order Prescriptions: New atorvastatin 40 mg Tablet 40 mg PO QAM Qty: 30 0RF insulin glargine [Lantus U-100 Insulin] 100 unit/mL Solution 10 unit subcut BID Qty: 1 0RF aspirin 81 mg Tablet,Delayed Release (Dr/Ec) 81 mg PO QAM Qty: 0 0RF carvedilol 3.125 mg Tablet 3.125 mg PO BIDM Qty: 0 0RF furosemide 20 mg Tablet 20 mg PO BID17 Qty: 60 0RF Jardiance 10 mg Tablet 10 mg PO DAILY Qty: 30 0RF Entresto 24-26 mg Tablet 1 tab PO BID Qty: 60 0RF Continued (DME) blood-glucose meter [OneTouch Verio Flex Start] Kit See Rx Instructions .ROUTE .MEDSUPPLY Qty: 1 0RF Rx Instructions: Monitor glucose daily - dx E11.9 (DME) OneTouch Verio test strips Strip See Rx Instructions .ROUTE .MEDSUPPLY Qty: 50 0RF Rx Instructions: Monitor glucose daily - dx E11.9 (DME) lancets [OneTouch Delica Lancets] 33 gauge misc See Rx Instructions .ROUTE .MEDSUPPLY Qty: 100 0RF Rx Instructions: Monitor glucose daily - E11.9 Discontinued ibuprofen 600 mg tablet 600 mg PO Q6H PRN (Reason: pain) Qty: 30 0RF Discharge Orders: Discharge Order (Routine); Ordered 04/04/24 Ordered By: Wilfred Stephens Admission Data Admit Date/Time: 04/03/24 04:45 Attending Provider: Wilfred Stephens Admit Provider: Trey Vanessa Primary Care Provider: PCP,NO Other Providers: Trey Vanessa; Giselle Cobb Other Interventions: Discharge Summary Assessment (RN) Last Done: 04/04/24 18:11 Hospital Stay Data Consultations 04/03/24 03:57 ED Decision to Admit Stat 04/03/24 06:08 Consult Cardiology Routine 04/03/24 13:44 Consult Cardiac Rehabilitation Routine 04/04/24 15:04 Burn CD for patient Stat Procedures Performed Operation Date: 04/03/24 12:00 Actual Procedures s Cineradiography w/Routine Exam(Right) - Osman Hernandez MD, PhD p Cath, Coronaries ONLY (no LV) - Osman Hernandez MD, PhD Diagnostic Imagining Performed 04/03/24 11:27 CL Cath Imgs for PACS use only Routine Pending Results Patient Have Any Pending Studies at Discharge: No Discharge Instructions Given to Patient (Per Discharging Provider) Continue IV heparin. You are being transferred for possible CABG. Total Time Total Time Spent Total Time Spent (In Minutes): 32 Coding Level of Care Code 39507 INP/OBS DISCH >30 MIN Diagnoses NSTEMI (non-ST elevated myocardial infarction) I21.4 HFrEF (heart failure with reduced ejection fraction) I50.20 Flash pulmonary edema J81.0 Hypertension I10 CAP (community acquired pneumonia) J18.9 DM2 (diabetes mellitus, type 2) E11.9 Hyperlipidemia E78.5
== END 2024-04-04 20:15 | disposition short-term general hospital (02) | DRG 280 ==
LOC: ED 02:00 → 2S 04:45 → SUATTDRO 04:45 → 2S 05:28
PROC: CLB.CCO (2024-04-03 12:00)

== ENCOUNTER 2024-11-04 13:18 | Inpatient (IN) ==
--- NOTE | 2024-11-04 13:57 | XRay Report ---
XR chest 1V portable CLINICAL HISTORY: Chest pain, nonspecific COMPARISON STUDY: 04/03/2024 FINDINGS: There is prior CABG. There is mild cardiomegaly without pulmonary vascular congestion. Insp iration is shallow. There is mild scarring or atelectasis at the left lung base. No other consolidati on or pleural effusion. No pneumothorax. IMPRESSION: No acute findings. ACT 112: Negative or not required by law. Electronically signed by: Shayne Dial M.D. 11/04/2024 1:56 PM
[2024-11-04 14:05] LABS: Base Excess VBG 1.6 mEq/L; HCO3 VBG 23 mmol/L; Oxygen Saturation VBG 95.6 %; PCO2 VBG 26 mmHg (38-50); PO2 VBG 62 mmHg; pH VBG 7.55 (7.36-7.41)
[2024-11-04 14:07] LABS: Basophils # (auto) 0.11 K/uL (0.00-0.20); Eosinophils # (auto) 0.23 K/uL (0.00-0.50); Eosinophils % (auto) 2.1 %; Hematocrit (blood only) 44.3 % (42.0-52.0); Hemoglobin 15.5 g/dl (14.0-18.0); Immature Granulocytes # (auto) 0.04 K/uL (0.01-0.20); Immature Granulocytes % (auto) 0.4 %; Lymphocytes # (auto) 3.12 K/uL (1.20-3.40); Mean Corpuscular Hemoglobin 29.5 pg (25.0-34.0); Mean Corpuscular Volume 84.2 fL (80.0-100.0); Mean Platelet Volume 10.5 fL (9.4-12.4); Monocytes # (auto) 0.81 K/uL (0.11-0.59); Monocytes % (auto) 7.3 %; Neutrophils # (auto) 6.84 K/uL (1.40-6.50); Neutrophils % (auto) 61.2 %; Platelet Count 206 K/uL (130-400); RDW Coefficient of Variation 13.4 % (11.5-14.5); RDW Standard Deviation 41.4 fL (36.4-46.3); Red Blood Count 5.26 M/uL (4.70-6.10); White Blood Count 11.15 K/ul (4.8-10.8)
--- NOTE | 2024-11-04 14:11 | Emergency Department Note ---
History of Present Illness General Chief Complaint: Chest Pain Stated Complaint: CHEST PAIN, SOB, DIZINESS Time Seen by Provider: 11/04/24 13:24 History of Present Illness Provider Complaint: chest pain Time: 07:00 Duration: intermittent and improved Onset: during rest Pain Location: substernal and left chest Pain Radiation: RUE and LUE Severity: moderate Maximum Pain Intensity: 4 Current Pain Intensity: 4 Quality: + tightness, + aching, + heaviness and + dull Relieved By: + nothing Exacerbated By: + nothing Context: no recent illness, no recent surgery, no recent immobilization, no recent travel, no trauma/injury or no new medications Associated symptoms: no nausea, no vomiting, no diaphoresis, no dyspnea, no syncope, no palpitations, no fever, no cough or no leg swelling Treatments prior to arrival: aspirin and nitroglycerin Patient reports he stopped taking all of his medications that were prescribed to him by his physicians 2 months ago. Home Medications Medication Instructions Recorded Confirmed Type blood sugar diagnostic (Optichronuch #50 ea 09/06/20 04/03/24 Rx Verio test strips) blood-glucose meter (Optichronuch #1 ea 09/06/20 04/03/24 Rx Verio Flex Start kit) lancets 33 gauge (OneTouch Delica #100 ea 09/06/20 04/03/24 Rx Lancets) aspirin 81 mg tablet,delayed 81 mg PO QAM #0 tabs 04/04/24 Rx release atorvastatin 40 mg tablet 40 mg PO QAM #30 tabs 04/04/24 Rx carvedilol 3.125 mg tablet 3.125 mg PO BIDM #0 tabs 04/04/24 Rx empagliflozin 10 mg tablet 10 mg PO DAILY #30 tabs 04/04/24 Rx (Jardiance) furosemide 20 mg tablet 20 mg PO BID17 #60 tabs 04/04/24 Rx insulin glargine 100 unit/mL 10 unit (0.1 mL) subcut BID #1 mL 04/04/24 Rx subcutaneous solution (Lantus U-100 Insulin) sacubitril 24 mg-valsartan 26 mg 1 tab PO BID #60 tabs 04/04/24 Rx tablet (Entresto) Allergies Allergy/AdvReac Type Severity Reaction Status Date / Time No Known Allergies Allergy Unverified 06/28/21 09:11 Past Med/Surg History Problem List (Updated 11/04/24 @ 16:21 by Flavio Cardoso MD) Chest pain (Acute) CHF (congestive heart failure) (Acute) Acute non-ST elevation myocardial infarction (NSTEMI) (Acute) HFrEF (heart failure with reduced ejection fraction) Hyperlipidemia Hypertension CAP (community acquired pneumonia) DM2 (diabetes mellitus, type 2) NSTEMI (non-ST elevated myocardial infarction) Flash pulmonary edema (Acute) Allergic reaction (Acute) Medical History Medical non-compliance Chronic low back pain Diabetes mellitus Scabies Surgical History No history of previous surgery Family History Denies family history of Ovarian cancer Prostate cancer Myocardial infarction Breast cancer Colorectal cancer Social History Smoking Status: Former smoker Tobacco Type: Cigarettes Age Started Using Tobacco: 30; Age Quit Using Tobacco: 50; packs per day: 2; Cigarettes Per Day: 40; Second Hand Exposure: No; Do You Dip or Chew Tobacco: No; Hx Alcohol Use: No Hx Substance Use: No Preferred Language: Macedonian Communication Ability: Effective Visual Impairment: No Limitations Hearing Ability: Normal General Medical Practitioner Required: No Beliefs That Will Affect Care: None marital status: Single Current Living Situation: Alone current occupational status: employed current occupation: [employer] Feels Safe at Home: Yes Childhood Exposure to Second-Hand Smoke: Yes Diet: regular caffeine: No during the past year weight has: decreased > 10 lbs Dental Care, Regularly: Yes Physical Activity Frequency: Daily Sunscreen Use: No Assistive Devices: None Physical Exam Vital Signs Vital Signs - 24 hr 11/04/24 13:26 11/04/24 13:27 11/04/24 15:43 Temperature 36.4 C L Temperature Source Oral Pulse Rate 121 H 120 H Pulse Rhythm Respiratory Rate 15 Respiratory Effort / Characteristics Non-Labored Short of Breath Respiratory Depth Normal Blood Pressure 159/80 H Blood Pressure Mean 106 Blood Pressure Position Lying Pulse Oximetry 98 97 Oxygen Delivery Method Room Air Room Air Sepsis Recent Fever Within 48 Hours No Sepsis New/Unexplained Change in Mental Status N/A Sepsis Action Taken by Nursing No Action Required 11/04/24 15:43 Temperature Temperature Source Pulse Rate 87 Pulse Rhythm Regular Respiratory Rate Respiratory Effort / Characteristics Respiratory Depth Blood Pressure Blood Pressure Mean Blood Pressure Position Pulse Oximetry 97 Oxygen Delivery Method Room Air Sepsis Recent Fever Within 48 Hours Sepsis New/Unexplained Change in Mental Status Sepsis Action Taken by Nursing Physical Exam GENERAL: oriented to person, place, and time. appears well-developed and well- nourished. HENT: Exam performed. - Head: Normocephalic and atraumatic. EYES: Conjunctivae and EOM are normal. Right eye exhibits no discharge. Left eye exhibits no discharge. No scleral icterus. NECK: Normal range of motion. Neck supple. No JVD present. CV: Normal rate, regular rhythm, normal heart sounds and intact distal pulses. There is no peripheral edema. Palpable radial pulses bue. PULM/CHEST: Effort normal and breath sounds normal. No respiratory distress. No stridor. no wheezes. no rales. ABD: The abdomen is soft. There is no tenderness. NEURO: Motor and sensation grossly intact. SKIN: Skin is warm and dry. He is not diaphoretic. PSYCH: normal mood and affect. Behavior is normal. Judgment and thought content normal. Course Course 1324: The patient was evaluated in room A11. A complete history and physical exam was performed Cardiac monitoring: An order was placed for continuous cardiac monitoring. The monitor shows a rate of 120 with sinus rhythm interpreted by de 1450: Vital signs stable. D-dimer elevated. Will obtain CTA of the chest to rule out PE. 1607: Vital signs stable. Labs and imaging are unremarkable with exception of elevated D-dimer. CTA of the chest is negative for PE. Patient will be admitted for chest pain rule out ACS. Administered Medications Nitroglycerin (Nitroglycerin Sl 0.4 Mg/Tab Tab) 0.4 mg SL Q5M PRN PRN Reason: Chest Pain Stop: 12/04/24 13:30 Last Admin: 11/04/24 14:47 Dose: 0.4 mg Documented By: PAL Discontinued Medications Aspirin (Aspirin Chew 324 Mg) 324 mg PO NOW STA Stop: 11/04/24 13:32 Last Admin: 11/04/24 14:44 Dose: Not Given Documented By: PAL Ioversol (Optiray 320 125ml) 119 ml IV ONCE ONE Stop: 11/04/24 15:45 Last Admin: 11/04/24 15:44 Dose: 119 ml Documented By: JOHN Medical Decision Making Laboratory Data Attestation: I reviewed the patient's lab results. 11/04/24 13:49 11/04/24 13:49 Labs: Lab Results 11/04/24 11/04/24 Range/Units 13:49 13:50 WBC 11.15 H (4.8-10.8) K/ul RBC 5.26 (4.70-6.10) M/uL Hgb 15.5 (14.0-18.0) g/dl Hct 44.3 (42.0-52.0) % MCV 84.2 (80.0-100.0) fL MCH 29.5 (25.0-34.0) pg MCHC 35.0 (32.0-36.0) g/dL RDW Std Deviation 41.4 (36.4-46.3) fL RDW Coeff of Romelia 13.4 (11.5-14.5) % Plt Count 206 (130-400) K/uL MPV 10.5 (9.4-12.4) fL Immature Gran % (Auto) 0.4 % Neut % (Auto) 61.2 % Lymph % (Auto) 28.0 % Mcdonald % (Auto) 7.3 % Eos % (Auto) 2.1 % Baso % (Auto) 1.0 % Neut # (Auto) 6.84 H (1.40-6.50) K/uL Lymph # (Auto) 3.12 (1.20-3.40) K/uL Mcdonald # (Auto) 0.81 H (0.11-0.59) K/uL Eos # (Auto) 0.23 (0.00-0.50) K/uL Baso # (Auto) 0.11 (0.00-0.20) K/uL Immature Gran # (Auto) 0.04 (0.01-0.20) K/uL PT 11.1 (9.0-12.0) Seconds INR 1.0 (0.9-1.1) APTT 28 (21-31) Seconds PTT Ratio 1.0 D-Dimer 570 H* (0-500) ug/L FEU VBG pH 7.55 H (7.36-7.41) VBG pCO2 26 L (38-50) mmHg VBG pO2 62 mmHg VBG HCO3 23 mmol/L VBG O2 Saturation 95.6 % VBG Base Excess 1.6 mEq/L Sodium 134 L (136-145) mmol/L Potassium 4.2 (3.5-5.1) mmol/L Chloride 103 (98-107) mmol/L Carbon Dioxide 21 (21-32) mmol/L Anion Gap 10 (3-11) BUN 18 (6-23) mg/dl Creatinine 0.62 (0.6-1.4) mg/dl Est Cr Clr Drug Dosing 168.7 ml/min eGFR 113.58 BUN/Creatinine Ratio 29.0 H (10-20) Glucose 340 H* (70-99(Fasting)) mg/dl Calcium 10.6 H (8.6-10.3) mg/dl Magnesium 1.9 (1.7-2.4) mg/dl Troponin I High Sens 13.6 (0-20) pg/ml B-Natriuretic Peptide 71 (0-100) pg/ml Lipase 14 (11-82) U/L Imaging Data Chest x-ray: Attestation: I personally reviewed and interpreted this imaging study as follows: My impression: Chest x-ray negative. Airway clear. No pneumothorax. No consolidation. No cardiomegaly or cephalization.. No free air under the diaphragm. No fractures of the skeletal structures. Radiologist's impression: Chest X-Ray 11/04/24 13:31 XR chest 1V portable CLINICAL HISTORY: Chest pain, nonspecific COMPARISON STUDY: 04/03/2024 FINDINGS: There is prior CABG. There is mild cardiomegaly without pulmonary vascular congestion. Inspiration is shallow. There is mild scarring or atelectasis at the left lung base. No other consolidation or pleural effusion. No pneumothorax. IMPRESSION: No acute findings. ACT 112: Negative or not required by law. Electronically signed by: Shayne Dial M.D. 11/04/2024 1:[address] scan - chest: Radiologist's impression: CT angio chest PE protocol CT DOSE: 974.09 mGy.cm HISTORY: ro PE. TECHNIQUE: Multiple CTA images of the chest were obtained after the intravenous administration of 120 ml Optiray. Coronal and sagittal MIPS were obtained from the axial data set and were submitted for review. All measurements were obtained according to NASCET criteria. A dose lowering technique was utilized adhering to the principles of ALARA. COMPARISON STUDY: 03/29/2024 FINDINGS: There is mild scarring or atelectasis in the dependent lung bases. There is no pulmonary consolidation or pleural effusion. No pneumothorax. No significant pulmonary nodule. No enlarged adenopathy. No pulmonary embolism seen. No acute osseous findings. 3 cm hypodense left adrenal nodule is stable. IMPRESSION: No pulmonary embolism or pneumonia. ACT 112: Negative or not required by law. The above report was generated using voice recognition software. It may contain grammatical, syntax or spelling errors. Electronically signed by: Shayne Dial M.D. 11/04/2024 3:55 PM Dictated: 11/04/24 154 Transcribed: 11/04/241548 ECG Data Attestation: I personally reviewed and interpreted this ECG as follows: Additional Comments: EKG #1 at 1330: Sinus tachycardia with rate of 120. MI 172 QRS [address] elevation or ST depression. PVC present EKG #2 at 1400: Sinus tachycardia with a rate of 116. MI 192 QRS [address] elevation or ST depression. [facility] Narrative 1324: The patient was evaluated in room A11. A complete history and physical exam was performed Cardiac monitoring: An order was placed for continuous cardiac monitoring. The monitor shows a rate of 120 with sinus rhythm interpreted by me 1450: Vital signs stable. D-dimer elevated. Will obtain CTA of the chest to rule out PE. 1607: Vital signs stable. Labs and imaging are unremarkable with exception of elevated D-dimer. CTA of the chest is negative for PE. Patient will be admitted for chest pain rule out ACS. Impression & Plan Chest pain Discharge Plan Visit Data Chief Complaint: Chest Pain Stated Complaint: CHEST PAIN, SOB, DIZINESS ED Provider: Flavio Cardoso Discharge Problem: Chest pain Patient Disposition: Being Evaluated by Hospitalist Forms Stand Alone Forms: [employer] Prescriptions Prescriptions: No Action (DME) blood-glucose meter [OneTouch Verio Flex Start] Kit See Rx Instructions .ROUTE .MEDSUPPLY Qty: 1 0RF Rx Instructions: Monitor glucose daily - dx E11.9 (DME) OneTouch Verio test strips Strip See Rx Instructions .ROUTE .MEDSUPPLY Qty: 50 0RF Rx Instructions: Monitor glucose daily - dx E11.9 (DME) lancets [OneTouch Delica Lancets] 33 gauge misc See Rx Instructions .ROUTE .MEDSUPPLY Qty: 100 0RF Rx Instructions: Monitor glucose daily - E11.9 atorvastatin 40 mg Tablet 40 mg PO QAM Qty: 30 0RF insulin glargine [Lantus U-100 Insulin] 100 unit/mL Solution 10 unit subcut BID Qty: 1 0RF aspirin 81 mg Tablet,Delayed Release (Dr/Ec) 81 mg PO QAM Qty: 0 0RF carvedilol 3.125 mg Tablet 3.125 mg PO BIDM Qty: 0 0RF furosemide 20 mg Tablet 20 mg PO BID17 Qty: 60 0RF Jardiance 10 mg Tablet 10 mg PO DAILY Qty: 30 0RF Entresto 24-26 mg Tablet 1 tab PO BID Qty: 60 0RF Referrals Referrals: PCP,NO [Primary Care Provider] - Discharge Problem: Chest pain Qualifiers: Chest pain type: unspecified Qualified Code(s): R07.9 - Chest pain, unspecified
[2024-11-04 14:34] LABS: Partial Thromboplastin Time 28 Seconds (21-31); Prothrombin Time 11.1 Seconds (9.0-12.0)
[2024-11-04 14:36] LABS: Calcium 10.6 mg/dl (8.6-10.3); Creatinine Clr Calc Pharmacy 168.7 ml/min; Magnesium 1.9 mg/dl (1.7-2.4); Potassium 4.2 mmol/L (3.5-5.1); Troponin I High Sensitivity 13.6 pg/ml (0-20)
[2024-11-04] MEDS: ASPIRIN CHEW 324 MG PO STA (14:44)
[2024-11-04] MEDS: NITROGLYCERIN SL 0.4 MG/TAB TAB SL PRN (14:47)
[2024-11-04 14:49] LABS: D Dimer 570 ug/L FEU (0-500)
[2024-11-04] MEDS: OPTIRAY 320 125ml IV ONE (15:44)
--- NOTE | 2024-11-04 15:57 | CT Scan Report ---
CT angio chest PE protocol CT DOSE: 974.09 mGy.cm HISTORY: ro PE. TECHNIQUE: Multiple CTA images of the chest were obtained after the intravenous administration of 120 ml Optiray. Coronal and sagittal MIPS were obtained from the axial data set and were submitted for review. All measurements were obtained according to NASCET criteria. A dose lowering technique was u tilized adhering to the principles of ALARA. COMPARISON STUDY: 03/29/2024 FINDINGS: There is mild scarring or atelectasis in the dependent lung bases. There is no pulmonary co nsolidation or pleural effusion. No pneumothorax. No significant pulmonary nodule. No enlarged adenop athy. No pulmonary embolism seen. No acute osseous findings. 3 cm hypodense left adrenal nodule is st able. IMPRESSION: No pulmonary embolism or pneumonia. ACT 112: Negative or not required by law. The above report was generated using voice recognition software. It may contain grammatical, syntax o r spelling errors. Electronically signed by: Shayne Dial M.D. 11/04/2024 3:55 PM
[2024-11-04] MEDS ORDERED: DEXTROSE 50% 50 ML SYRINGE IV PRN (16:24)
[2024-11-04] MEDS ORDERED: GLUCOSE 10 TAB/TUBE PO PRN (16:24)
[2024-11-04] MEDS ORDERED: PHARMACY GLYCEMIC MGMT CONSULT PRN (16:24)
[2024-11-04] MEDS ORDERED: GLUCOSE 40% GEL 15 GM TUBE PO PRN (16:24)
[2024-11-04] MEDS ORDERED: GLUCAGON FOR INJ 1 MG VIAL SQ PRN (16:24)
[2024-11-04] MEDS ORDERED: CARBOHYDRATES FOR HYPOGLYCEMIA PO PRN (16:24)
--- NOTE | 2024-11-04 16:33 | History & Physical Report ---
Date of Service November 04, 2024 History of Present Illness Primary Care Provider: NO PCP Isael is a 54-year-old male with past medical history of HFrEF, DM2, flash pulmonary edema postop taking medications around 2 months ago who presents with chest pain. D-dimer was elevated, CTA with no PE/pneumonia. WBC 11.15 without left shift. VBG 7.5 12/07/ consistent with acute respiratory alkalosis. EKG on admission is sinus tachycardia with PVCs. QTc 613. No territorial ischemia. BSG 340. High sensitive troponin normal. BNP 71. Chest x-ray without acute findings DM2 on insulin. REports he never actually took the insulin that was prescribed after his bipass (triple bipass at [facility]). [place] [facility] [place] just [place] do [place].' HFrEF, Hx CABG No evidence of acute pulmonary edema on admission High since troponin is normal Cath 03/2024 with severe multivessel CAD not amenable to PCI. Was recommended for referral to tertiary care and medical management with beta- jie/Entresto/diuretic/Jardiance/ +/- spironolactone with LifeVest fitting in the meantime. BP mildly elevated 150s/80s Allergies Allergy/AdvReac Type Severity Reaction Status Date / Time No Known Allergies Allergy Unverified 06/28/21 09:11 Home Medications Medication Instructions Recorded Confirmed Type blood sugar diagnostic ([employer]Touch #50 ea 09/06/20 04/03/24 Rx Verio test strips) blood-glucose meter (OneTouch #1 ea 09/06/20 04/03/24 Rx Verio Flex Start kit) lancets 33 gauge (OneTouch Delica #100 ea 09/06/20 04/03/24 Rx Lancets) aspirin 81 mg tablet,delayed 81 mg PO UD 11/04/24 11/04/24 History release atorvastatin 40 mg tablet 40 mg PO UD 11/04/24 11/04/24 History carvedilol 3.125 mg tablet 3.125 mg PO UD 11/04/24 11/04/24 History empagliflozin 10 mg tablet 10 mg PO UD 11/04/24 11/04/24 History (Jardiance) furosemide 20 mg tablet 20 mg PO UD 11/04/24 11/04/24 History insulin glargine 100 unit/mL 10 unit subcut UD 11/04/24 11/04/24 History subcutaneous solution (Lantus U-100 Insulin) sacubitril 24 mg-valsartan 26 mg 1 tab PO UD 11/04/24 11/04/24 History tablet (Entresto) Past Med/Surg History Problem List (Updated 11/04/24 @ 16:21 by Flavio Cardoso MD) Chest pain (Acute) CHF (congestive heart failure) (Acute) Acute non-ST elevation myocardial infarction (NSTEMI) (Acute) HFrEF (heart failure with reduced ejection fraction) Hyperlipidemia Hypertension CAP (community acquired pneumonia) DM2 (diabetes mellitus, type 2) NSTEMI (non-ST elevated myocardial infarction) Flash pulmonary edema (Acute) Allergic reaction (Acute) Medical History Medical non-compliance Chronic low back pain Diabetes mellitus Scabies Surgical History No history of previous surgery Family History Denies family history of Ovarian cancer Prostate cancer Myocardial infarction Breast cancer Colorectal cancer Social History Smoking Status: Former smoker Tobacco Type: Cigarettes Age Started Using Tobacco: 30; Age Quit Using Tobacco: 50; packs per day: 2; Cigarettes Per Day: 40; Second Hand Exposure: No; Do You Dip or Chew Tobacco: No; Hx Alcohol Use: No Hx Substance Use: No Preferred Language: Sierra Leonean Communication Ability: Effective Visual Impairment: No Limitations Hearing Ability: Normal Desktop Publisher Required: No Beliefs That Will Affect Care: None marital status: Single Current Living Situation: Alone current occupational status: employed current occupation: [employer] Feels Safe at Home: Yes Childhood Exposure to Second-Hand Smoke: Yes Diet: regular caffeine: No during the past year weight has: decreased > 10 lbs Dental Care, Regularly: Yes Physical Activity Frequency: Daily Sunscreen Use: No Assistive Devices: None Results & Data Results & Data Vital Signs (Past 12 Hours) Vital Signs Temp Pulse Resp BP Pulse Ox O2 Del Method 11/04/24 15:43 87 97 Room Air 11/04/24 15:43 97 Room Air 11/04/24 13:27 120 H 04/23/25 13:26 36.4 C L 121 H 15 159/80 H 98 Room Air PG Care Time/CCT Total # of Minutes Spent Total Time Spent with Patient: Total time spent is greater than 50% in coordination of care (as documented) at patient's floor/unit and/or counseling patient: Coding
--- NOTE | 2024-11-04 16:57 | Electrocardiogram Report ---
Test Reason : Blood Pressure : */* mmHG Vent. Rate : 120 BPM Atrial Rate : 120 BPM P-R Int : 172 ms QRS Dur : 86 ms QT Int : 328 ms P-R-T Axes : 10 40 23 degrees QTcB Int : 464 ms Sinus tachycardia with occasional Premature ventricular complexes Nonspecific T wave abnormality Abnormal ECG When compared with ECG of 04-Apr-2024 06:35, Premature ventricular complexes are now Present Vent. rate has increased by 53 bpm Confirmed by uRben Still ([id number]) on 11/04/2024 4:56:53 PM Referred By: Confirmed By: Ruben Still
[2024-11-04] MEDS ORDERED: Heparin IV Adult Wt-Based Standard w/ INITIAL Bolus Protocol IV SCH (17:15)
--- NOTE | 2024-11-04 17:48 | History & Physical Report ---
Date of Service November 04, 2024 Assessment & Plan (1) Chest pain: (2) CHF (congestive heart failure): (3) HFrEF (heart failure with reduced ejection fraction): (4) Hyperlipidemia: (5) Hypertension: (6) DM2 (diabetes mellitus, type 2): Plan The patient is a 54-year-old male who presented to the ED on with complaints of chest pain. Patient recently hospitalized in April 2024 with NSTEMI, s/p CABG, LV thrombus previously on warfarin/aspirin. Patient stopped taking his medications 2 months ago due to issues with affording medication Rule out ACS Hx CABG x3-2023 Hx LV thrombus Initial EKG without acute changes, Trop negative x 2, continue to trend Repeat echo, EKG in a.m., chest x-ray/chest CTA unremarkable Has been off of aspirin/warfarin x 2 months, INR subtherapeutic Initiate heparin drip, n.p.o. after midnight, consult cardiology Hx DM2: Off oral diabetic medications as well as insulin for months. Recheck A1c, initiate Lantus/SSI Consult glycemic pharmacy A total of 60 minutes was spent on chart review/reviewing diagnostic data/facilitating plan of care/discussion with consultants Full code DVT prophylaxis: Heparin drip History of Present Illness Chief Complaint: Chest pain Primary Care Provider: NO PCP The patient is a 54-year-old male with a past medical history of DM2, CABG x 3LIMALAD, AoPDA using reverse saphenous vein, [id number], LV thrombuspreviously on warfarin and aspirin, former smoker who presents to the ED on with complaints of left-sided chest pain. Patient reports getting up this morning and taking the trash out and feeling okay. He reports laying in the passenger seat of his brother's car and the next thing he remembers is waking up and having chest pain and shortness of breath. He then came to the emergency room. Patient reports issues with money and getting medications. He reports that he has not been taking any of his cardiac medications over the past 2 months. Reports intermittent chest pain and shortness of breath with movement over the past month or so. He also has not been taking any medications for his diabetes and not checking his sugars. He denies any nausea/vomiting/diarrhea. He denies any abdominal pain. Denies any open wounds. Denies any recent respiratory virus. Does report a dry intermittent cough but denies any sputum production. Chest x-ray is negative Chest CTA is negative for PE/pneumonia EKG without any acute changes Labs remarkable for glucose 340, calcium 10.6, D-dimer 570, pH 7.55, CO2 26, WBC 11 The patient will be admitted for ACS rule out and further management of chest pain Allergies Allergy/AdvReac Type Severity Reaction Status Date / Time No Known Allergies Allergy Unverified 06/28/21 09:11 Home Medications Medication Instructions Recorded Confirmed Type blood sugar diagnostic ([employer] #50 ea 09/06/20 04/03/24 Rx Verio test strips) blood-glucose meter ([employer] #1 ea 09/06/20 04/03/24 Rx Verio Flex Start kit) lancets 33 gauge ([employer]oTouch Delica #100 ea 09/06/20 04/03/24 Rx Lancets) aspirin 81 mg tablet,delayed 81 mg PO UD 11/04/24 11/04/24 History release atorvastatin 40 mg tablet 40 mg PO UD 11/04/24 11/04/24 History carvedilol 3.125 mg tablet 3.125 mg PO UD 11/04/24 11/04/24 History empagliflozin 10 mg tablet 10 mg PO UD 11/04/24 11/04/24 History (Jardiance) furosemide 20 mg tablet 20 mg PO UD 11/04/24 11/04/24 History insulin glargine 100 unit/mL 10 unit subcut UD 11/04/24 11/04/24 History subcutaneous solution (Lantus U-100 Insulin) sacubitril 24 mg-valsartan 26 mg 1 tab PO UD 11/04/24 11/04/24 History tablet (Entresto) Past Med/Surg History Problem List (Updated 11/04/24 @ 16:21 by Flavio Cardoso MD) Chest pain (Acute) CHF (congestive heart failure) (Acute) Acute non-ST elevation myocardial infarction (NSTEMI) (Acute) HFrEF (heart failure with reduced ejection fraction) Hyperlipidemia Hypertension CAP (community acquired pneumonia) DM2 (diabetes mellitus, type 2) NSTEMI (non-ST elevated myocardial infarction) Flash pulmonary edema (Acute) Allergic reaction (Acute) Medical History Medical non-compliance Chronic low back pain Diabetes mellitus Scabies Surgical History No history of previous surgery Family History Denies family history of Ovarian cancer Prostate cancer Myocardial infarction Breast cancer Colorectal cancer Social History Smoking Status: Former smoker Tobacco Type: Cigarettes Age Started Using Tobacco: 30; Age Quit Using Tobacco: 50; packs per day: 2; Cigarettes Per Day: 40; Second Hand Exposure: No; Do You Dip or Chew Tobacco: No; Hx Alcohol Use: No Hx Substance Use: No Preferred Language: Libyan Communication Ability: Effective Visual Impairment: No Limitations Hearing Ability: Normal Driver Recruiter Required: No Beliefs That Will Affect Care: None marital status: Single Current Living Situation: Alone current occupational status: employed current occupation: [employer] Feels Safe at Home: Yes Childhood Exposure to Second-Hand Smoke: Yes Diet: regular caffeine: No during the past year weight has: decreased > 10 lbs Dental Care, Regularly: Yes Physical Activity Frequency: Daily Sunscreen Use: No Assistive Devices: None Review of Systems Review of Systems: All systems reviewed & are unremarkable except as noted in HPI & below Physical Exam Constitutional: WD/WN, vitals as above Eyes: PERRL, conjunctivae normal, anicteric sclerae ENMT: external ear and nose normal, oropharynx normal Neck: trachea midline, no thyromegaly Respiratory: normal respiratory effort, lungs clear to auscultation (Intermittent wheezing) Cardiovascular: RRR, no murmur, no edema Gastrointestinal (Abdomen): normal bowel sounds, soft, nontender, no hepatosplenomegaly Musculoskeletal: no cyanosis or clubbing, extremities motor strength 5/5 Skin: no rashes, warm and dry Neurologic: PERRL, EOMI, accommodation nl, no face palsy, no dysarthria Psychiatric: Orientation: oriented x 3 Lymphatic: no cervical or axillary lymphadenopathy Results & Data Results & Data Vital Signs (Past 12 Hours) Vital Signs Temp Pulse Resp BP Pulse Ox O2 Del Method 11/04/24 17:25 84 11/04/24 15:43 87 97 Room Air 11/04/24 15:43 97 Room Air 11/04/24 13:27 120 H 11/04/24 13:26 36.4 C L 121 H 15 159/80 H 98 Room Air Diagnostic Findings Laboratory Results WBC 11.15 K/ul (4.8-10.8) H 11/04/24 13:49 RBC 5.26 M/uL (4.70-6.10) 11/04/24 13:49 Hgb 15.5 g/dl (14.0-18.0) 11/04/24 13:49 Hct 44.3 % (42.0-52.0) 11/04/24 13:49 MCV 84.2 fL (80.0-100.0) 11/04/24 13:49 MCH 29.5 pg (25.0-34.0) 11/04/24 13:49 MCHC 35.0 g/dL (32.0-36.0) 11/04/24 13:49 RDW Std Deviation 41.4 fL (36.4-46.3) 11/04/24 13:49 RDW Coeff of Romelia 13.4 % (11.5-14.5) 11/04/24 13:49 Plt Count 206 K/uL (130-400) 11/04/24 13:49 MPV 10.5 fL (9.4-12.4) 11/04/24 13:49 Immature Gran % (Auto) 0.4 % 11/04/24 13:49 Neut % (Auto) 61.2 % 11/04/24 13:49 Lymph % (Auto) 28.0 % 11/04/24 13:49 [place] % (Auto) 7.3 % 11/04/24 13:49 Eos % (Auto) 2.1 % 11/04/24 13:49 Baso % (Auto) 1.0 % 11/04/24 13:49 Neut # (Auto) 6.84 K/uL (1.40-6.50) H 11/04/24 13:49 Lymph # (Auto) 3.12 K/uL (1.20-3.40) 11/04/24 13:49 [place] # (Auto) 0.81 K/uL (0.11-0.59) H 11/04/24 13:49 Eos # (Auto) 0.23 K/uL (0.00-0.50) 11/04/24 13:49 Baso # (Auto) 0.11 K/uL (0.00-0.20) 11/04/24 13:49 Immature Gran # (Auto) 0.04 K/uL (0.01-0.20) 11/04/24 13:49 PT 11.1 Seconds (9.0-12.0) 11/04/24 13:49 INR 1.0 (0.9-1.1) 11/04/24 13:49 APTT 28 Seconds (21-31) 11/04/24 13:49 PTT Ratio 1.0 11/04/24 13:49 D-Dimer 570 ug/L FEU (0-500) H* 11/04/24 13:49 VBG pH 7.55 (7.36-7.41) H 11/04/24 13:49 VBG pCO2 26 mmHg (38-50) L 11/04/24 13:49 VBG pO2 62 mmHg 11/04/24 13:49 VBG HCO3 23 mmol/L 11/04/24 13:49 VBG O2 Saturation 95.6 % 11/04/24 13:49 VBG Base Excess 1.6 mEq/L 11/04/24 13:49 Sodium 134 mmol/L (136-145) L 11/04/24 13:49 Potassium 4.2 mmol/L (3.5-5.1) 11/04/24 13:49 Chloride 103 mmol/L (98-107) 11/04/24 13:49 Carbon Dioxide 21 mmol/L (21-32) 11/04/24 13:49 Anion Gap 10 (3-11) 11/04/24 13:49 BUN 18 mg/dl (6-23) 11/04/24 13:49 Creatinine 0.62 mg/dl (0.6-1.4) 11/04/24 13:49 Est Cr Clr Drug Dosing 168.7 ml/min 11/04/24 13:49 eGFR 113.58 11/04/24 13:49 BUN/Creatinine Ratio 29.0 (10-20) H 11/04/24 13:49 Glucose 340 mg/dl (70-99(Fasting)) H* 11/04/24 13:49 Calcium 10.6 mg/dl (8.6-10.3) H 11/04/24 13:49 Magnesium 1.9 mg/dl (1.7-2.4) 11/04/24 13:49 Troponin I High Sens 12.0 pg/ml (0-20) 11/04/24 17:06 B-Natriuretic Peptide 71 pg/ml (0-100) 11/04/24 13:50 Lipase 14 U/L (11-82) 11/04/24 13:49 Impressions Chest X-Ray 11/04/24 13:31 XR chest 1V portable CLINICAL HISTORY: Chest pain, nonspecific COMPARISON STUDY: 04/03/2024 FINDINGS: There is prior CABG. There is mild cardiomegaly without pulmonary vascular congestion. Inspiration is shallow. There is mild scarring or atelectasis at the left lung base. No other consolidation or pleural effusion. No pneumothorax. IMPRESSION: No acute findings. ACT 112: Negative or not required by law. Electronically signed by: Shayne Dial M.D. 11/04/2024 1:56 PM Chest CTA 11/04/24 14:50 CT angio chest PE protocol CT DOSE: 974.09 mGy.cm HISTORY: ro PE. TECHNIQUE: Multiple CTA images of the chest were obtained after the intravenous administration of 120 ml Optiray. Coronal and sagittal MIPS were obtained from the axial data set and were submitted for review. All measurements were obtained according to NASCET criteria. A dose lowering technique was utilized adhering to the principles of ALARA. COMPARISON STUDY: 03/29/2024 FINDINGS: There is mild scarring or atelectasis in the dependent lung bases. There is no pulmonary consolidation or pleural effusion. No pneumothorax. No significant pulmonary nodule. No enlarged adenopathy. No pulmonary embolism seen. No acute osseous findings. 3 cm hypodense left adrenal nodule is stable. IMPRESSION: No pulmonary embolism or pneumonia. ACT 112: Negative or not required by law. The above report was generated using voice recognition software. It may contain grammatical, syntax or spelling errors. Electronically signed by: Shayne Dial M.D. 11/04/2024 3:55 PM Supervising Physician Co-Signing Physician Notes Attending addendum: The patient was seen and examined in the emergency room He was brought into the emergency room with exertional chest pain which has been going on since this morning The pain goes across the precordium and upper chest but did not have any radiation and was not associated with any sweating dizziness or palpitation Apparently he has not been taking his medications for the last 2 months He has been feeling little better in the emergency room On examination Lying in bed without any apparent distress Remains hemodynamically stable with blood pressure of 159/80 Chestdecreased breath sound at the bases no crackles HeartS1, S2 regular, murmur Extremities trace edema bilaterally CNSalert, awake and oriented x 3 no focal sensory or no motor deficit appreciated His admission labs, EKG, imaging studies And medications reviewed Has angina with history of significant heart disease as mentioned in H&P and no medications for the last 2 months Initial EKG did not show any significant ST-T wave changes and troponins are negative so far. His CTA was negative for any pulmonary embolism Heparin intravenously initiated and he was given nitro to control the chest pain His medications will be restarted and monitored in the hospital Echocardiogram will be done and he will be seen by the dolphin trainer Agree with assessment and plan as outlined above by SADAF Sanchez and take the full responsible care in the hospital total time taken to document all this and examination was [address] Leisa Garza (1) Chest pain Chest pain type: unspecified Qualified Code(s): R07.9 - Chest pain, unspecified
[2024-11-04] MEDS: LACTATED RINGER'S 500 ML IV ONE (18:10)
[2024-11-04] MEDS: HEPARIN SOD (PORCINE) 1000 UNIT/ML IV ONE (18:23)
[2024-11-04] MEDS: MAGNESIUM OXIDE 400 MG TAB PO ONE (18:24)
[2024-11-04] MEDS: HEPARIN 25000 UNIT/500 ML D5W 25,000 UNITS/500 ML BAG IV SCH (18:24)
[2024-11-04] MEDS: INSULIN ASPART PER UNIT CHARGE SC SCH ×2 (18:58→23:59)
[2024-11-04] MEDS: LANTUS PER UNIT CHARGE SQ ONE (18:59)
[2024-11-04] MEDS: NovoLIN-R INSULIN PER UNIT CHARGE IV STA (19:00)
[2024-11-04] MEDS: NITROGLYCERIN 2% OINTMENT 30GM TUBE EXT SCH (20:43)
[2024-11-04] MEDS: METOPROLOL SUCC 25MG EXT REL TAB PO SCH (20:45)
--- OUTSIDE RECORDS SUMMARY | 2024-11-04 22:05 | External Medical Summary | Summary of Care ---
Author Name Unknown Organization [facility] Address [address] [facility] [place] [address] Phone [phone] Care Team Providers Care Machine Learning Intern Name Role Phone Carla Evans MD Primary Care Provider Reason for Visit * Reason Comments Dosage Adjustment Via Phone (anticoag Cl inic) Encounter Details Date Type Department Care Team (Late st Contact Info) Description 08/26/2024 6:10 PM [facility] Pharmacy Pharmacy, [facility] [address] [facility] [place] [address] [facility] [address] [facility] [place] [address] Type 2 diabetes mellitus with hemoglobin A1c goal of less than 7.0% ([facility])* Allergies No known active allergiesdocumented as of this encounter (statuses as of 08/26/2024) Medications BD Pen Needle Ju[place] U/F 32G X 4 MM (Insulin Pen Needle) Use to inject insulin 4 times per day 200 Each 12 4 12:55 PM EDT 04/17/20 24 Active Microlet Lancets Use to check blood glucose 4 times per day 200 Each 12 04/17/20 24 Active Aspirin 81 MG Oral Tablet Chewable Take 1 Tablet by mouth in the morning. 30 Tablet 12 4 3:31 PM EST 04/18/20 24 Active Atorvastatin Calcium 80 MG Oral Tablet (Lipitor) Take 1 Tablet by mouth every afternoon. 30 Tablet 12 4 3:31 PM EST 04/18/20 24 Active Lisinopril 2.5 MG Oral Tablet (Prinivil) Take 1 Tablet by mouth in the morning. 30 Tablet 12 4 3:31 PM EST 04/18/20 24 Active Metoprolol Succinate ER 25 MG Oral Tablet Extended Release 24 Hour (toPROL XL) Take 1 Tablet by mouth in the morning. 30 Tablet 12 4 3:31 PM EST 04/18/20 24 Active Contour Next Test In Vitro Strip (Glucose Blood)Indication s:Type 2 diabetes mellitus with hemoglobin A1c goal of less than 7.0% ([facility]) Check blood glucose 4 times per day 200 Strip 12 05/08/20 24 Active Potassium Chloride ER 10 MEQ Oral Tablet Extended Release take one tablet by mouth in the morning do not fill before 05/15/2024 30 Tablet 4 4 3:31 PM EST 04/24/20 24 Active Famotidine 20 MG Oral Tablet (Pepcid) take 1 tablet by mouth on the morning 360 Tablet 4 12:55 PM EDT 05/08/20 24 Active Furosemide 40 MG Oral Tablet (Lasix) Take 1 Tablet by mouth in the morning. Take for 30 days then stop. Do not start before May 15, 2024. 30 Tablet 2 4 3:31 PM EST 05/15/20 24 Active Warfarin Sodium 5 MG Oral Tablet (Coumadin) Take by mouth as directed by the anticoagulation clinic 30 Tablet 2 4 3:31 PM EST 05/12/20 24 Active Insulin Glargine Solostar 100 UNIT/ML Subcutaneous Solution Pen-injector (Lantus SoloStar) Inject 40 Units under the skin in the morning. 15 mL 12 4 12:32 PM EST 05/27/20 24 Active hydrOXYzine HCl 10 MG Oral Tablet (Atarax)Indicati ons:Anxiety state Take 1 Tablet by mouth every 8 hours as needed for Anxiety. 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 04/23/2024 LV dysfunction 04/05/2024 LV (left ventricular) mural thrombus with acute NE 04/05/2024 Coronary artery disease invo lving [place] coronary artery of [place] heart with angina pectoris 04/04/2024 NSTEMI (non-ST elevated myocardial infarction) 0 04/04/2024 Type 2 diabetes mellitus wit h hemoglobin A1c goal of less than 7.0% 04/04/2024 Tobacco use 04/04/2024 HTN (hypertension) 04/04/2024 documented as of this encounter (statuses as of 08/26/2024) Resolved Problems Problem Noted Date Diagnosed Date Resolved Date Heart failure with mildly re duced ejection fraction (HFmrEF) 04/05/2024 04/06/2024 documented as of this encounter (statuses as of 08/26/2024) Immunizations Name Administration Dates Next Due COVID-19 mRNA, LNP-s, No Pre serve, 2-Dose Series (Moderna) 07/20/2021,11/27/2020,10/31/2020 HEPATITIS B VACCINE, RECOMB, 20 MCG/ML, ADULT (HEPLISAV-B) 08/14/2024,05/27/2024 Pneumococcal Conjugate Vacci ne, 20-valent ([id number]) 05/27/2024 Seasonal Influenza Virus Vac cine, Unspecified Formulation 04/07/2018 Seasonal Influenza, Trivalen t, (IIV3), PF, (Fluzone) 04/24/2024 TDAP, Age 7 and older, IM (Adacel) 02/23/2017 documented as of this encounter Social History Tobacco Use Types Packs/Day Years Used Date Smoking Tobacco: Former Cigarettes Smokeless Tobacco: Never Alcohol Use Standard Drinks/Week Comments Never 0 (1 standard drink = 0.6 oz pur e alcohol) PHQ-2 Answer Date Recorded PHQ Adult Total Score 0 08/14/2024 Sex and Gender Information Value Date Recorded Sex Assigned at Not on file Legal Sex Male 6:12 AM EST Gender Identity Not on file Sexual Orientation Straight 04/29/2024 12 :36 PM EDT documented as of this encounter Functional Status * Are you deaf or do you have serious difficulty hearing? Answer Date of Assessment Author No 04/04/2024 10:09 PM EDT Carina Escalera RN * Are you blind or do you have serious difficulty seeing, even when wearing glasses? Answer Date of Assessment Author No 04/04/2024 10:09 PM EDT Carina Escalera RN * Do you have serious difficulty walking or climbing stairs? (5 years old or older) Answer Date of Assessment Author No 04/04/2024 10:09 PM EDT Carina Escalera RN * Do you have difficulty dressing or bathing? (5 years old or older) Answer Date of Assessment Author No 04/04/2024 10:09 PM EDT Carina Escalera RN * Because of a physical, mental, or emotional condition, do you have difficulty doing errands alone such as visiting a doctor’s office or shopping? (15 years old or older) Answer Date of Assessment Author No 04/04/2024 10:09 PM EDT Carina Escalera RN documented as of this encounter Mental Status * Because of a physical, mental, or emotional condition, do you have serious difficulty concentrating, remembering, or making decisions? (5 years old or older) Answer Entry Date Author No 04/04/2024 10:09 PM EDT Carina Escalera RN documented in this encounter Progress Notes * Aliyah Alvarez CPhT - 08/26/2024 10:47 AM EST Patient Phone Numbers Left message on patient’s answering machine to schedule [facility] appointment for diabetes management. [facility] message sent -- No Clinic will follow up again in 4 week(s). [Attempt # 1] Thank you, Aliyah Alvarez CPhT Application Development Intern II [facility] [address] [place] [address] Dr. [address] [place] [id number] 08/26/2024,10:47 AM documented in this encounter Plan of Treatment Upcoming Encounters Date Type Department Care Team (Late st Contact Info) Description 09/23/2024 6:10 PM EDT Pharmacy Pharmacy, [facility] [address] [place] [address] [facility] [place] [address] [place] [address] 11/12/2024 9:40 AM EDT Office Visit Family Practice [facility] [address] [place] [address] Rosalba Mata CRNP [address] [place] [address] Health Maintenance Due Date Last Done Comments Cologuard 2015 Colonoscopy 2015 Colorectal Cancer Screening 2015 Fecal Occult Blood Test 2015 Sigmoidoscopy 2015 Zoster Vaccines (1 of 2) 2020 HbA1c 02/11/2025 08/14/2024, 04/04/2024 Diabetic Eye Exam 04/22/2025 04/22/2024 Albumin/Creatinine Ratio 08/14/2025 08/14/2024 Depression Screening 08/14/2025 08/14/2024 Diabetic Foot Exam 08/14/2025 08/14/2024 GFR 08/14/2025 08/14/2024, 10/0 11/2023, 04/17/2024, Additional history exists DTap/Tdap Vaccines (2 - Td or Tdap) 02/23/2027 02/23/2017 COVID-19 Vaccine Discontinued 07/20/2021, , 10/31/2020 Influenza Vaccine (FLU shot) Completed 04/24/2024, 04/07/2018 Pneumococcal Vaccine: 50+ Years Completed 05/27/2024 Hepatitis B Vaccine Completed 08/14/2024, HPV (Gardasil) Vaccine Aged Out No lo nger eligible based on patient's age to complete this topic MENINGOCOCCAL (MENACTRA/MENVEO) Aged Out No longer eligible based on patient's age to complete this topic documented as of this encounter Medical Devices Implanted Type Area Religion Professor Device Identifier Shelf Expiration Date Model / Serial / Lot Suture Steel 6 B&S19 M654g - [id number] Implanted:Qty: 8 on 04/13/2024 by Fernando Blancas MD at [place] [facility] [place]: Sternum JNJ : [employer] 12/12/2028 [id number] / / [id number] Marker Coronary - [id number] Implanted:Qty: 2 on 04/13/2024 by Fernando Blancas MD at [place] [facility] [place]A: Heart [employer] 02/11/2027 [facility] / / [id number] documented as of this encounter Visit Diagnoses Diagnosis Type 2 diabetes mellitus with hemoglobin A1c goal of less than 7.0% ([facility])- Primary documented in this encounter Advance Directives * Full Code (Latest Code Status on File) Date Activated Date Inactivated Comments 04/13/2024 4:55 PM 04/18/2024 3:51 PM This order r eflects the patients wishes and were consensually agreed upon. Question Answer Comments Discussion of Advance Directives occurred with: Patient * Full Code Date Activated Date Inactivated Comments 04/04/2024 10:13 PM 04/13/2024 4:55 PM This order reflects the patients wishes and were consensually agreed upon. Question Answer Comments Discussion of Advance Directives occurred with: Patient Care Teams Machine Learning Intern Relationship Specialty Start Date End Date Carla Evans MD [address] [place] [address] PCP - General Internal Medicine 04/22/24 documented as of this encounter
--- OUTSIDE RECORDS SUMMARY | 2024-11-04 22:05 | External Medical Summary | Summary of Care ---
Author Name Unknown Organization [facility] Address [address] [facility] [place] [address] Phone [phone] Care Team Providers Care Human Resources Compensation Analyst Name Role Phone Carla Evans MD Primary Care Provider Reason for Visit * Reason Onset Date Comments Health Maintenance 09/29/2024 Encounter Details Date Type Department Care Team (Late st Contact Info) Description 09/29/2024 Telephone Family Practice [facility] [address] [place] [address] Carla Evans MD [address] [place] [address] Health Maintenance Allergies No known active allergiesdocumented as of this encounter (statuses as of 09/29/2024) Medications BD Pen Needle [place] U/F 32G [...] hemoglobin A1c goal of less than 7.0% ([facility]) Check blood glucose 4 times per day [...] as of this encounter (statuses as of 09/29/2024) Active Problems Problem Noted Date Diagnosed Date Hyperlipidemia 08/14/2024 HFrEF (heart failure with reduced ejection fract ion) 08/14/2024 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 04/23/2024 LV dysfunction 04/05/2024 LV (left ventricular) mural thrombus with acute [place] 04/05/2024 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 artery of [place] heart with angina pectoris 04/04/2024 NSTEMI (non-ST elevated myocardial infarction) 0 04/04/2024 Type 2 diabetes mellitus wit h hemoglobin A1c goal of less than 7.0% 04/04/2024 Tobacco use 04/04/2024 HTN (hypertension) 04/04/2024 documented as of this encounter (statuses as of 09/29/2024) Resolved Problems Problem Noted Date Diagnosed Date Resolved Date Heart failure with mildly re duced ejection fraction (HFmrEF) 04/05/2024 04/06/2024 documented as of this encounter (statuses as of 09/29/2024) Immunizations Name Administration Dates Next Due COVID-19 mRNA, LNP-s, No Pre serve, 2-Dose Series (Moderna) 07/20/2021,11/27/2020,10/31/2020 HEPATITIS B VACCINE, RECOMB, 20 MCG/ML, ADULT (HEPLISAV-B) 08/14/2024,05/27/2024 Pneumococcal Conjugate Vacci ne, 20-valent ([id number]) 05/27/2024 Seasonal Influenza Virus Vac cine, Unspecified [...] Carina Escalera RN documented in this encounter Miscellaneous Notes * Telephone Encounter - Anny Zhang LPN - 09/29/2024 3:04 PM EDT Care Gaps Comprehensive Care Outreach Last Office/Telemedicine Visit: 08/14/2024 (in office), Visit date not found (telemedicine) Next Office Visit: 11/12/2024 Hemoglobin AIC Results: Lab Results Component Value Date/Time HEMOGLOBIN A1C - [facility] 11.8 (H) 08/14/2024 10:31 AM HEMOGLOBIN A1C - [facility] 10.8 (H) 04/04/2024 10:45 PM BP Readings from Last 1 Encounters: 08/14/24 124/82 Reviewed Health Maintenance below: Health Maintenance Topic Date Due Colorectal Cancer Screening Never done Zoster Vaccines (1 of 2) Never done HbA1c 02/11/2025 Diabetic Eye Exam 04/22/2025 Cologuard follow Care Gap Outreach Action Taken: Unable to reach documented in this encounter Plan of Treatment Upcoming Encounters Date Type Department Care Team (Late st Contact Info) Description 10/14/2024 6:10 PM EDT Pharmacy Pharmacy, [facility] [address] [place] [address] [facility] [place] [address] [place] [address] 11/12/2024 9:40 AM EDT Office Visit Family [facility] [address] [place] [address] Rosalba Mata CRNP [address] [place] [address] Health Maintenance Due Date Last Done Comments [...] on patient's age to complete this topic Meningitis B Vaccine (Bexsero/Trumemba) Aged Out No longer eligible based on patient's age to complete this topic documented as of this encounter Medical Devices Implanted Type Area Health Care Specialist Device Identifier Shelf Expiration Date Model / Serial / Lot Suture Steel 6 B&S19 M654g - [id number] Implanted:Qty: 8 on 04/13/2024 by Fernando Blancas MD at OR [facility] [place] N/A: Sternum JNJ : [employer] 12/12/2028 M654G / / [id number] Marker Coronary - [id number] Implanted:Qty: 2 on 04/13/2024 by Fernando Blancas MD at OR [facility] [place] N/A: Heart [employer] 02/11/2027 [facility] / / [id number] documented as of this encounter Advance Directives * Full Code [...] Advance Directives occurred with: Patient Care Teams Human Resources Compensation Analyst Relationship Specialty Start Date End Date Carla Evans MD [address] [place] [address] PCP - General Internal Medicine 04/22/24 documented as of this encounter
--- OUTSIDE RECORDS SUMMARY | 2024-11-04 22:05 | External Medical Summary | Summary of Care ---
Author Name Unknown Organization [facility] Address [address] [facility] [place] [address] Phone [phone] Care Team Providers Care Cash Surrender Calculator Name Role Phone Carla Evans MD Primary Care Provider Reason for Visit * Reason Comments Dosage Adjustment Via Phone (anticoag Cl inic) Encounter Details Date Type Department Care Team (Late st Contact Info) Description 10/14/2024 6:10 PM EDT Pharmacy Pharmacy, [facility] [address] [facility] [place] [address] [facility] [address] [facility] [place] [address] Type 2 diabetes mellitus with hemoglobin A1c goal of less than 7.0% ([facility])* Allergies No known active allergiesdocumented as of this encounter (statuses as of 10/14/2024) Medications BD Pen Needle [place] U/F 32G [...] hemoglobin A1c goal of less than 7.0% ([facility]) Check blood glucose 4 times per day [...] as of this encounter (statuses as of 10/14/2024) Active Problems Problem Noted Date Diagnosed Date Hyperlipidemia 08/14/2024 HFrEF (heart failure with reduced ejection fract ion) 08/14/2024 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 04/23/2024 LV dysfunction 04/05/2024 LV (left ventricular) mural thrombus with acute PA 04/05/2024 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 artery of [place] heart with angina pectoris 04/04/2024 NSTEMI (non-ST elevated myocardial infarction) 0 04/04/2024 Type 2 diabetes mellitus wit h hemoglobin A1c goal of less than 7.0% 04/04/2024 Tobacco use 04/04/2024 HTN (hypertension) 04/04/2024 documented as of this encounter (statuses as of 10/14/2024) Resolved Problems Problem Noted Date Diagnosed Date Resolved Date Heart failure with mildly re duced ejection fraction (HFmrEF) 04/05/2024 04/06/2024 documented as of this encounter (statuses as of 10/14/2024) Immunizations Name Administration Dates Next Due COVID-19 mRNA, LNP-s, No Pre serve, 2-Dose Series (Moderna) 07/20/2021,11/27/2020,10/31/2020 HEPATITIS B VACCINE, RECOMB, 20 MCG/ML, ADULT (HEPLISAV-B) 08/14/2024,05/27/2024 Pneumococcal Conjugate Vacci ne, 20-valent ([id number]) 05/27/2024 Seasonal Influenza Virus Vac cine, Unspecified [...] documented in this encounter Progress Notes * Leia Galeana, car inspector - 10/14/2024 10:44 AM EDT Patient Phone Numbers Left message on patient’s answering machine to schedule [facility] appointment for diabetes management. [facility] message sent --no, no my Clinic will follow up again in 4 week(s). [Attempt # 3] Thank you, Leia Galeana Safety Director [facility] ([facility]) 10/14/2024, 10:44 AM documented in this encounter Plan of Treatment Upcoming Encounters Date Type Department Care Team (Late st Contact Info) Description 11/12/2024 9:40 AM EDT Office Visit [address] [place] [address] Rosalba Mata CRNP [address] [place] [address] 11/13/2024 6:10 PM EDT Pharmacy Pharmacy, [facility] [address] [place] [address] [facility] [address] [place] [address] Health Maintenance Due Date Last Done Comments [...] this encounter Medical Devices Implanted Type Area Pie Chef Device Identifier Shelf Expiration Date Model / Serial / Lot Suture Steel 6 B&S19 M654g - [id number] Implanted:Qty: 8 on 04/13/2024 by Fernando Blancas MD [place] [facility] [place]: Sternum JNJ : [employer] 12/12/2028 M654G / / [id number] Marker Coronary - [id number] Implanted:Qty: 2 on 04/13/2024 by Fernando Blancas MD [place] [facility] [place]: Heart [employer] 02/11/2027 [facility] / / [id number] documented as of this encounter Visit Diagnoses Diagnosis Type 2 diabetes mellitus with hemoglobin A1c goal of less than 7.0% ([facility])- Primary documented in this encounter Advance Directives [...] Advance Directives occurred with: Patient Care Teams Cash Surrender Calculator Relationship Specialty Start Date End Date Carla Evans MD [address] [place] [address] PCP - General Internal Medicine 04/22/24 documented as of this encounter
--- OUTSIDE RECORDS SUMMARY | 2024-11-04 22:05 | External Medical Summary | Summary of Care ---
Author Name Unknown Organization [facility] Address [address] [facility] [place] [address] Phone [phone] Care Team Providers Care Wing Mailer Machine Operator Name Role Phone Carla Evans MD Primary Care Provider Reason for Visit * Reason Comments Outpatient Testing Encounter Details Date Type Department Care Team (Late st Contact Info) Description 08/14/2024 11:10 AM EST Laboratory Laboratory, [facility] [address] [facility] [place] [id number] [facility] [address] Coronary artery disease involving [place] coronary artery of [place] heart with angina pectoris (HCC); Anemia, unspecified type; Type 2 diabetes mellitus with hemoglobin A1c goal of less than 7.0% (HCC); LV (left ventricular) mural thrombus with acute VA (HCC); Hypertension, unspecified type Allergies No known active allergiesdocumented as of this encounter (statuses as of 08/14/2024) Medications BD Pen Needle [place] U/F 32G [...] hemoglobin A1c goal of less than 7.0% ([facility]) Check blood glucose 4 times per day [...] as of this encounter (statuses as of 08/14/2024) Active Problems Problem Noted Date Diagnosed Date Hyperlipidemia 08/14/2024 HFrEF (heart failure with reduced ejection fract ion) 08/14/2024 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 04/23/2024 LV dysfunction 04/05/2024 LV (left ventricular) mural thrombus with acute VA 04/05/2024 Coronary artery disease invo lving [place] coronary artery of [place] heart with angina pectoris 04/04/2024 NSTEMI (non-ST elevated myocardial infarction) 0 04/04/2024 Type 2 diabetes mellitus wit h hemoglobin A1c goal of less than 7.0% 04/04/2024 Tobacco use 04/04/2024 HTN (hypertension) 04/04/2024 documented as of this encounter (statuses as of 08/14/2024) Resolved Problems Problem Noted Date Diagnosed Date Resolved Date Heart failure with mildly re duced ejection fraction (HFmrEF) 04/05/2024 04/06/2024 documented as of this encounter (statuses as of 08/14/2024) Immunizations Name Administration Dates Next Due COVID-19 mRNA, LNP-s, No Pre serve, 2-Dose Series (Moderna) 07/20/2021,11/27/2020,10/31/2020 HEPATITIS B VACCINE, RECOMB, 20 MCG/ML, ADULT (HEPLISAV-B) 08/14/2024,05/27/2024 Pneumococcal Conjugate Vacci ne, 20-valent ([id number]) 05/27/2024 Seasonal Influenza Virus Vac cine, Unspecified [...] Carina Escalera RN documented in this encounter Plan of Treatment Upcoming Encounters Date Type Department Care Team (Late st Contact Info) Description 11/12/2024 9:40 AM EDT Office Visit Family [facility] [address] [place] [address] Rosalba Mata CRNP [address] [place] [address] Pending Results Name Type Priority Associated Diagnoses Date /Time LIPID PANEL WITH DIRECT LDL IF TG IS HIGH Lab Routine Coronary artery disease involving [place] coronary artery of [place] heart with angina pectoris (HCC) 08/14/2024 10:31 AM EST CBC WITH WBC DIFFERENTIAL AND ANEMIA REFLEX WORKUP Lab Routine Anemia, unspecified type 08/14/2024 10:31 AM EST TSH WITH FREE T4 IF INDICATED Lab Routine Type 2 diabetes mellitus with hemoglobin A1c goal of less than 7.0% ([facility]) 08/14/2024 10:31 AM EST HEMOGLOBIN A1C Lab Routine Type 2 diabetes mellitus with hemoglobin A1c goal of less than 7.0% ([facility]) 08/14/2024 10:31 AM EST ANEMIA REFLEX CHEMISTRY HOLD Lab Routine Anemia, unspecified type 08/14/2024 10:31 AM EST ALBUMIN / CREATININE RATIO, URINE Lab Routine Hypertension, unspecified type 08/14/2024 10:32 AM EST Health Maintenance Due Date Last Done Comments Albumin/Creatinine Ratio 1988 Cologuard 2015 Colonoscopy 2015 Colorectal Cancer Screening 2015 Fecal Occult Blood Test 2015 Sigmoidoscopy 2015 Zoster Vaccines (1 of 2) 2020 HbA1c 10/02/2024 04/04/2024 GFR 04/18/2025 08/14/2024, 10/0 11/2023, 04/17/2024, Additional history exists Diabetic Eye Exam 04/22/2025 04/22/2024 Depression Screening 08/14/2025 08/14/2024 Diabetic Foot Exam 08/14/2025 08/14/2024 DTap/Tdap Vaccines (2 - Td or Tdap) [...] this encounter Medical Devices Implanted Type Area Adjunct Philosophy Faculty Device Identifier Shelf Expiration Date Model / Serial / Lot Suture Steel 6 B&S19 M654g - [id number] Implanted:Qty: 8 on 04/13/2024 by Fernando Blancas MD at OR [facility] [place] N/A: Stephaniaum MAIKEL : [employer] 12/12/2028 [id number] / / [id number] Marker Coronary - [id number] Implanted:Qty: 2 on 04/13/2024 by Fernando Blancas MD at OR [facility] [place] N/A: Heart [employer] 02/11/2027 [facility] / / [id number] documented as of this encounter Procedures Procedure Name Priority Date/Time Associated Diagnosis Comments ANEMIA CBC Routine 08/14/2024 10:31 AM EST Anemia, unspecified type DIFFERENTIAL, AUTOMATED Routine 08/14/2024 10:31 AM EST Anemia, unspecified type COMPREHENSIVE METABOLIC PANEL Routine 08/14/2024 10:31 AM EST Type 2 diabetes mellitus with hemoglobin A1c goal of less than 7.0% (HCC) PT INR Routine 08/14/2024 10:31 AM EST LV (left ventricular) mural thrombus with acute VA (HCC) DIFFERENTIAL, TECHNOLOGIST REVIEW Routine 08/14/2024 10:31 AM EST Anemia, unspecified type documented in this encounter Results * DIFFERENTIAL, TECHNOLOGIST REVIEW (08/14/2024 10:31 AM EST) Pathologist [facility] 08/14/2024 11:51 AM EST [facility] 57-10 Blood Venous blood specimen / Unknown Venipuncture / Unknown 08/14/2024 10:31 AM EST 08/14/2024 10:31 AM EST us Carla Evans MD LAB BLOOD ORDERABLES F inal Result [facility] 57-10 [address] [facility] [place] [address] * (ABNORMAL) DIFFERENTIAL, AUTOMATED (08/14/2024 10:31 AM EST) WBC 11.92(H) 4.00 - 10.80 K/uL 08/14/2024 11:51 AM EST [facility] Neutrophils % 59.4 40.0 - 75.0 % 08/14/2024 11:51 AM EST [facility] Lymphocytes % 30.2 18.0 - 42.0 % 08/14/2024 11:51 AM EST [facility] Monocytes % 7.3 1.0 - 11.0 % 08/14/2024 11:51 AM EST [facility] Eosinophils % 2.8 0.0 - 6.0 % 08/14/2024 11:51 AM EST [facility] Basophils % 0.3 0.0 - 2.0 % 08/14/2024 11:51 AM EST [facility] Absolute Neutrophils 7.08 1.80 - 7.70 K/uL 08/14/2024 11:51 AM EST [facility]10 Absolute Lymphocytes 3.60 1.00 - 4.80 K/ul 08/14/2024 11:51 AM EST [facility]10 Absolute Monocytes 0.87 0.00 - 1.10 K/uL 08/14/2024 11:51 AM EST [facility] Absolute Eosinophils 0.33 0.00 - 0.70 K/uL 08/14/2024 11:51 AM EST [facility]10 Absolute Basophils 0.04 0.00 - 0.20 K/uL 08/14/2024 11:51 AM EST [facility]10 Blood Venous blood specimen / Unknown Venipuncture / Unknown 08/14/2024 10:31 AM EST 08/14/2024 10:31 AM EST us Carla Evans MD LAB BLOOD ORDERABLES F inal Result [facility] [place] [address] * (ABNORMAL) ANEMIA CBC (08/14/2024 10:31 AM EST) WBC 11.92(H) 4.00 - 10.80 K/uL 08/14/2024 11:51 AM EST [facility] RBC 5.51 4.50 - 5.25 M/uL 08/14/2024 11:51 AM EST [facility] 57[facility]10 HGB 15.8 14.0 - 16.8 g/dL 08/14/2024 11:51 AM EST [facility] 57-10 Comment: Anemia reflex testing triggers on a HGB < 12.0 for Females and HGB < 13.0 for Males in accordance with the WHO Anemia Guidelines Anemia reflex testing triggers on a HGB < 12.0 for Females and HGB < 13.0 for Males in accordance with the WHO Anemia Guidelines HCT 46.7 40.0 - 48.4 % 08/14/2024 11:51 AM EST [facility] 57[facility]10 MCV 84.8 82.0 - 99.5 fL 08/14/2024 11:51 AM EST [facility] 57-10 MCH 28.7 27.0 - 34.0 pg 08/14/2024 11:51 AM EST [facility] 57-10 MCHC 33.8 32.0 - 36.0 g/dL 08/14/2024 11:51 AM EST [facility] 57-10 RDW 14.1 11.5 - 15.5 % 08/14/2024 11:51 AM EST [facility] 57-10 PLT 199 140 - 400 K/uL 08/14/2024 11:51 AM EST [facility] 57-10 MPV 11.8 6.6 - 11.1 fL 08/14/2024 11:51 AM EST [facility] 57-10 Blood Venous blood specimen / Unknown Venipuncture / Unknown 08/14/2024 10:31 AM EST 08/14/2024 10:31 AM EST us Carla Evans MD LAB BLOOD ORDERABLES F inal Result [facility] 57-10 [address] [facility] [place] [address] * PT INR (08/14/2024 10:31 AM EST) Prothrombin Time 14.3 11.6 - 15.2 seconds 08/14/2024 11:03 AM EST [facility] 57-10 INR 1.1 0.8 - 1.2 08/14/2024 11:03 AM EST [facility] 57-10 Blood Venous blood specimen / Unknown Venipuncture / Unknown 08/14/2024 10:31 AM EST 08/14/2024 10:31 AM EST Narrative [facility] 57-10 - 08/14/2024 11:03 AM EST Warfarin Therapy INR: 2.0-3.0 conventional anticoagulation INR: 2.5-3.5 high intensity anticoagulation us Carla Evans MD LAB BLOOD ORDERABLES F inal Result [facility] 57-10 [address] [place] [address] * (ABNORMAL) COMPREHENSIVE METABOLIC PANEL (08/14/2024 10:31 AM EST) BUN 22(H) 6 - 20 mg/dL 08/14/2024 11:59 AM EST [facility] 57-10 CREATININE 0.7 0.6 - 1.2 mg/dL 08/14/2024 11:59 AM EST [facility] 57-10 EGFR >90 >=60 mL/min 08/14/2024 11:59 AM EST [facility] 57-10 Comment:eGFR is calculated b ased on the CKD-EPI 2020 equation. SODIUM 137 135 - 146 mmol/L 08/14/2024 11:59 AM EST [facility] 57-10 POTASSIUM 4.4 3.5 - 5.1 mmol/L 08/14/2024 11:59 AM EST [facility] 57-10 CHLORIDE 98 98 - 107 mmol/L 08/14/2024 11:59 AM EST [facility] 57-10 CO2 26 22 - 32 mmol/L 08/14/2024 11:59 AM EST [facility] 57-10 ANION GAP 13 7 - 15 mmol/L 08/14/2024 11:59 AM EST [facility] GLUCOSE 359(H) 70 - 120 mg/dL 08/14/2024 11:59 AM EST [facility]10 Albumin 4.6 3.8 - 5.0 g/dL 08/14/2024 11:59 AM EST [facility] AST 14 10 - 50 U/L 08/14/2024 11:59 AM EST [facility]10 Alkaline Phosphatase 148(H) 35 - 130 U/L 08/14/2024 11:59 AM EST [facility]10 Bilirubin, Total 0.4 <=1.2 mg/dL 08/14/2024 11:59 AM EST [facility]10 CALCIUM 10.7(H) 8.4 - 10.2 mg/dL 08/14/2024 11:59 AM EST [facility]10 Protein 7.6 6.0 - 8.3 g/dL 08/14/2024 11:59 AM EST [facility]10 ALT 15 10 - 50 U/L 08/14/2024 11:59 AM EST [facility]10 Blood Venous blood specimen / Unknown Venipuncture / Unknown 08/14/2024 10:31 AM EST 08/14/2024 10:31 AM EST Carla Evans MD LAB BLOOD ORDERABLES F inal Result [facility] [place] [address] documented in this encounter Visit Diagnoses Diagnosis Coronary artery disease involving [place] coronary artery of [place] heart with angina pectoris (HCC) Anemia, unspecified type Type 2 diabetes mellitus with hemoglobin A1c goal of less than 7.0% (HCC) LV (left ventricular) mural thrombus with acute VA (HCC) Acute myocardial infarction of other specified sites, episode of care unspecified Hypertension, unspecified type documented in this encounter Advance Directives * [...] Advance Directives occurred with: Patient Care Teams Wing Mailer Machine Operator Relationship Specialty Start Date End Date Carla Evans MD [address] [place] [address] PCP - General Internal Medicine 04/22/24 documented as of this encounter
--- OUTSIDE RECORDS SUMMARY | 2024-11-04 22:05 | External Medical Summary | Summary of Care ---
Author Name Unknown Organization [facility] Address [address] [facility] [place] [address] Phone [phone] Care Team Providers Care Potable Water Treatment Operator Name Role Phone Carla Evans MD Primary Care Provider Reason for Visit * Reason Comments Dosage Adjustment Via Phone (anticoag Cl inic) Encounter Details Date Type Department Care Team (Late st Contact Info) Description 09/23/2024 6:10 PM EDT Pharmacy Pharmacy, [facility] [address] [facility] [place] [address] [facility] [address] [facility] [place] [address] Type 2 diabetes mellitus with hemoglobin A1c goal of less than 7.0% ([facility])* Allergies No known active allergiesdocumented as of this encounter (statuses as of 09/23/2024) Medications BD Pen Needle [place] U/F 32G [...] hemoglobin A1c goal of less than 7.0% ([facility]) Check blood glucose 4 times per day [...] as of this encounter (statuses as of 09/23/2024) Active Problems Problem Noted Date Diagnosed Date Hyperlipidemia 08/14/2024 HFrEF (heart failure with reduced ejection fract ion) 08/14/2024 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 04/23/2024 LV dysfunction 04/05/2024 LV (left ventricular) mural thrombus with acute [place] 04/05/2024 Coronary artery disease invo lving [place] coronary artery of [place] heart with angina pectoris 04/04/2024 NSTEMI (non-ST elevated myocardial infarction) 0 04/04/2024 Type 2 diabetes mellitus wit h hemoglobin A1c goal of less than 7.0% 04/04/2024 Tobacco use 04/04/2024 HTN (hypertension) 04/04/2024 documented as of this encounter (statuses as of 09/23/2024) Resolved Problems Problem Noted Date Diagnosed Date Resolved Date Heart failure with mildly re duced ejection fraction (HFmrEF) 04/05/2024 04/06/2024 documented as of this encounter (statuses as of 09/23/2024) Immunizations Name Administration Dates Next Due COVID-19 mRNA, LNP-s, No Pre serve, 2-Dose Series (Moderna) 07/20/2021,11/27/2020,10/31/2020 HEPATITIS B VACCINE, RECOMB, 20 MCG/ML, ADULT (HEPLISAV-B) 08/14/2024,05/27/2024 Pneumococcal Conjugate Vacci ne, 20-valent ([id number]) 05/27/2024 Seasonal Influenza Virus Vac cine, Unspecified [...] documented in this encounter Progress Notes * Licha Mitchell CPhT - 09/23/2024 8:28 AM EDT Patient Phone Numbers Left message on patient’s answering machine to schedule [facility] appointment for DM management. [facility] message sent --no, not active Clinic will follow up again in 3 week(s). [Attempt # 2] Licha Mitchell CPhT, [place] [employer] Building [employer] II [facility] documented in this encounter Plan of Treatment Upcoming Encounters Date Type Department Care Team (Late st Contact Info) Description 10/14/2024 6:10 PM EDT Pharmacy Pharmacy, [facility] [address] [facility] [place] [address] [facility] [address] [place] [address] 11/12/2024 9:40 AM EDT Office Visit Family Practice [facility] [address] [place] [address] Rosalba Mata CRNP [address] [place] [address] Health Maintenance Due Date Last Done Comments [...] this encounter Medical Devices Implanted Type Area Director Of Cardiac Rehabilitation Device Identifier Shelf Expiration Date Model / Serial / Lot Suture Steel 6 B&S19 M654g - [id number] Implanted:Qty: 8 on 04/13/2024 by [place] Blanc[place] [facility] [place]: Sternum [place] : [employer] 12/12/2028 M654G / / [id number] Marker Coronary - [id number] Implanted:Qty: 2 on 04/13/2024 by Fernando Blancas [place] [facility] [place]A: Heart [employer] 02/11/2027 [facility] / / [id number] documented as of this encounter Visit Diagnoses Diagnosis Type 2 diabetes mellitus with hemoglobin A1c goal of less than 7.0% ([facility])- Primary documented in this encounter Advance Directives [...] Advance Directives occurred with: Patient Care Teams Potable Water Treatment Operator Relationship Specialty Start Date End Date Carla Evans MD [address] [place] [address] PCP - General Internal Medicine 04/22/24 documented as of this encounter
--- OUTSIDE RECORDS SUMMARY | 2024-11-04 22:05 | External Medical Summary | Summary of Care ---
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 pectoris ([facility]); LV (left ventricular) mural thrombus with acute [place] ([facility]); Hypertension, unspecified type; Anemia, unspecified type; Anxiety state; Special screening for malignant neoplasms, colon Allergies No known active allergiesdocumented as of this encounter (statuses as of 08/15/2024) Medications BD Pen Needle [place] U/F 32G [...] Contour Next Test In Vitro Strip (Glucose Blood)Indicatio ns:Type 2 diabetes mellitus with hemoglobin A1c goal of less than 7.0% ([facility]) Check blood glucose 4 times per day [...] Active hydrOXYzine HCl 10 MG Oral Tablet (Atarax)Indicat ions:Anxiety state Take 1 Tablet by mouth every 8 hours as needed for Anxiety. 40 Tablet 2 08/14/19 25 Active traMADol HCl 50 MG Oral Tablet (Ultram) Take 1 Tablet by mouth every 6 hours as needed for severe pain 10 Tablet 4 11:30 AM EDT 04/18/20 24 025 Discontin ued(Medic ation List Clean Up) documented as of this encounter (statuses as of 08/15/2024) Active Problems Problem Noted Date Diagnosed Date Hyperlipidemia 08/14/2024 HFrEF (heart failure with reduced ejection fract ion) 08/14/2024 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 04/23/2024 LV dysfunction 04/05/2024 LV (left ventricular) mural thrombus with acute [place] 04/05/2024 Coronary artery disease invo lving ak chin coronary artery of ak chin heart with angina pectoris 04/04/2024 NSTEMI (non-ST elevated myocardial infarction) 0 04/04/2024 Type 2 diabetes mellitus wit h hemoglobin A1c goal of less than 7.0% 04/04/2024 Tobacco use 04/04/2024 HTN (hypertension) 04/04/2024 documented as of this encounter (statuses as of 08/15/2024) Resolved Problems Problem Noted Date Diagnosed Date Resolved Date Heart failure with mildly re duced ejection fraction (HFmrEF) 04/05/2024 04/06/2024 documented as of this encounter (statuses as of 08/15/2024) Immunizations Name Administration Dates Next Due COVID-19 mRNA, LNP-s, No Pre serve, 2-Dose Series (Moderna) 07/20/2021,11/27/2020,10/31/2020 HEPATITIS B VACCINE, RECOMB, 20 MCG/ML, ADULT (HEPLISAV-B) 08/14/2024,05/27/2024 Pneumococcal Conjugate Vacci ne, 20-valent (Htmzipj15) 05/27/2024 Seasonal Influenza Virus Vac cine, Unspecified Formulation 04/07/2018 Seasonal Influenza, Trivalen t, (IIV3), PF, (Fluzone) 04/24/2024 TDAP, Age 7 and older, IM (Adacel) 02/23/2017 documented as of this encounter Social History Tobacco Use Types Packs/Day Years Used Date Smoking Tobacco: Former Cigarettes Smokeless Tobacco: Never Tobacco Cessation:Counseling Given: Not Answered Alcohol Use Standard Drinks/Week Comments Never 0 (1 standard drink = 0.6 oz pur e alcohol) PHQ-2 Answer Date Recorded PHQ Adult Total Score 0 08/14/2024 Sex and Gender Information Value Date Recorded Sex Assigned at Not on file Legal Sex Male 6:12 AM EST Gender Identity Not on file Sexual Orientation Straight 04/29/2024 12 :36 PM EDT documented as of this encounter Last Filed Vital Signs Vital Sign Reading Time Taken Comments Blood Pressure 124/82 08/14/2024 9:45 AM EST Pulse 77 08/14/2024 9:45 AM EST Temperature - - Respiratory Rate - - Oxygen Saturation 99% 08/14/2024 9:45 AM EST Inhaled Oxygen Concentration - - Weight 106.2 kg (234 lb 3.2 oz) 08/14/2024 9:45 AM EST Height 177.8 cm (5' 10") 08/14/2024 9:45 AM EST Body Mass Index 33.6 08/14/2024 9:45 AM EST documented in this encounter Functional Status * Are you [...] Author No 04/04/2024 10:09 PM EDT Carina Escalera, NOAM * Do you have difficulty dressing or [...] Carina Escalera RN documented in this encounter Patient Instructions * Patient Instructions* Melony Roach, VANDA ASSIST - 08/14/2024 9:41 AM EST Images from the original note were not included. Diabetes: Keeping Feet Healthy Inspect your feet every day for signs of a problem. Diabetes can damage nerves in your feet and cause neuropathy. This condition makes it hard for you to feel injuries or sore spots. Diabetes can also change blood flow, making it harder for small problems, like a blister, to heal properly. In fact, minor injuries can quickly become serious infections that send you to the hospital. Practice self-care to protect your feet and keep them healthy. Take Special Care Inspect your feet daily for problems such as redness, blisters, cracks, dry skin, or numbness. Use a mirror to see the bottoms of your feet. Or, ask for help. Manage your diabetes. Monitor and control your blood sugar. Take all your medications as prescribed. Avoid walking barefoot, even indoors. Wash your feet with warm water and mild soap. Dry well, especially between toes. Don’t treat corns or calluses yourself. Talk to your doctor or head librarian (a doctor who specializes in foot care) if you need assistance trimming your toenails. Use moisturizing cream or lotion if you have dry skin, but don’t use it between toes. Don’t use heating pads on your feet. If you have neuropathy, you could get a burn and not feel it. Stop smoking. Smoking restricts blood flow and can make it harder for wounds to heal. Have Regular Checkups Foot problems can develop quickly. So be sure to follow your healthcare team’s schedule for regular checkups. During office visits, take off your shoes and socks as soon as you get in the exam room. Ask your healthcare provider to examine your feet for problems. This will make it easier to find and treat small skin irritations before they get worse. Regular checkups can also help keep track of the blood flow and feeling in your feet. If you have neuropathy, you may need to have checkups more often. Wear Proper Footwear Wearing proper footwear is very important. If areas of your feet have been damaged by too much pressure, your healthcare provider may recommend changing your footwear. In some cases, avoiding high heels or tight work boots may be all that’s needed. Or, your healthcare provider may recommend special shoes or custom inserts. These help protect your feet and keep existing irritations from getting worse. If you need special footwear, ask your healthcare provider if you qualify for Medicare’s diabetic shoe program. Make Sure Shoes and Socks Fit Any pair of shoes--new or old--should feel comfortable as soon as you put them on. There shouldn’t be any rubbing when you walk. Wear the right shoe for any activity. For instance, a running shoe is designed to keep your feet injury-free while jogging. Buy shoes at the end of the day, when your feet are larger. Make sure they provide support without feeling too loose. Make sure your socks fit, t oo. Wear soft, seamless, well-padded socks for activity. Cotton or microfiber socks are best to help to absorb sweat. To protect your feet, avoid shoes that are open-toed or open-heeled. If you have questions about what kinds of shoes and socks are best, talk to your healthcare team. Get Regular Exercise Regular exercise improves blood flow in your feet. It also increases foot strength and flexibility.Gentle exercises, like walking or riding a stationary bicycle, are best. You can also do special foot exercises. Just be sure to talk with your healthcare provider before starting any exercise program. Also mention if any exercise causes pain, redness, or other signs of foot problems. Note: If you have any kind of break in the skin of your foot or ankle, keep the area clean. Then call your doctor--especially if the area doesn’t appear to be healing. © 9299-2052 [employer], [address] [place] [address], [place] [address]. All rights reserved. This information is not intended as a substitute for professional medical care. Always follow your healthcare professional's instructions. Colorectal Cancer Screening Colorectal cancer (cancer in the colon or rectum) is a leading cause of cancer deaths in the [place] But it doesn’t have to be. When this cancer is found and removed early, the chances of a full recovery are very good. Because colorectal cancer rarely causes symptoms in its early stages, screening for the disease is important. It’s even more crucial if you have risk factors for the disease. Learn more about colorectal cancer and its risk factors. Then talk to your healthcare provider about being screened. You could be saving your own life. Risk factors for colorectal cancer Your risk of having colorectal cancer increases if you: Are 50 years of age or older Have a family history or personal history of colorectal cancer or polyps Have a personal history of type 2 diabetes, Crohn’s disease, or ulcerative colitis Have an inherited genetic syndrome like Suero syndrome (also known as HNPCC) or familial adenomatous polyposis (FAP) Are very overweight Are not physically active Smoke Drink a lot of alcohol Eat a lot of red or processed meat The colon and rectum Waste from food you eat enters the colon from the small intestine. As it travels through the colon,the waste (stool) loses water and becomes more solid. Intestinal muscles push it toward the sigmoid--the last section of the colon. Stool then moves into the rectum, where it’s stored until it’s ready to leave the body during a bowel movement. How cancer develops Polyps are growths that form on the inner lining of the colon or rectum. Most are benign, which means they aren’t cancerous. But over time, some polyps can become cancer (malignant). This happens when cells in these polyps begin growing abnormally. In time, malignant cells invade more and more ofthe colon and rectum. The cancer may also spread to nearby organs or lymph nodes or to other parts of the body. Finding and removing polyps can help prevent cancer from ever forming. Your screening Screening means looking for a health problem before you have symptoms. During screening for colorectal cancer, your healthcare provider will ask about your health history, examine you, and do one or more tests. History and exam The history and exam involve the following: Health history. Your healthcare provider will ask about your health history. Mention if a family member has had colon cancer or polyps. Also mention any health problems you have had in the past. Digital rectal exam (LLUVIA). During a LLUVIA, the healthcare provider inserts a lubricated gloved fingerinto the rectum. The test is painless and takes less than a minute. Healthcare providers agree thatthis test alone is not enough to screen for colorectal cancer. Screening test choices: Fecal occult blood test (FOBT) or fecal immunochemical test (FIT) These tests check for occult blood in stool (blood you can’t see). Hidden blood may be a sign of colon polyps or cancer. A small sample of stool is tested for blood in a laboratory. Most often, youcollect this sample at home using a kit your healthcare provider gives you. Follow the instructionscarefully for using this kit. You might need to avoid certain foods and medicines before the test, as directed. Barium enema with contrast (double-contrast barium enema) This test uses X-rays to provide images of the entire colon and rectum. The day before this test, you will need to do a bowel prep to clean out the colon and rectum. A bowel prep is a liquid diet plus strong laxatives or enemas. You will be awake for the test, but you may be given medicine to help you relax. At the start of the test, a radiologist (a healthcare provider who specializes in imagingtests) places a soft tube into the rectum. The tube is used to fill the colon with a contrast liquid (barium) and air. This can be uncomfortable for some people. The liquid helps the colon show up clearly on the X-rays. Because the test uses X-rays, it exposes you to a small amount of radiation. Virtual colonoscopy This exam is also called a CT colonography. It uses a series of X-ray photographs to create a 3-D view of the colon and rectum. The day before the test, you will need to do a bowel prep to clean out your colon. Your healthcare provider will give you instructions on how to do this. During the procedure, you will lie on a table that is part of a special X-ray machine called a CT scanner. A small tube will be placed into your rectum to fill the colon and rectum with air. This can be uncomfortable for some people. Then, the table will move into the machine and pictures will be taken of your colonand rectum. A computer will combine these photos to create a 3-D picture. Because the test uses X-rays, it exposes you to a small amount of radiation. Cologuard Cologuard is an easy to use, noninvasive colon cancer screening test that you can use in the privacy of your own home. It identifies altered DNA and/or blood in stool, which are associated with the possibility of colon cancer or precancer. DNA is continuously shed from cells in the intestinal lining, where it is passed into the stool. Ifcancer or precancer is present, abnormal cells will shed into the colon and stool along with normalcells. A molecular biology process is used to capture specific pieces of DNA for further analysis. Scope exams Here are two types of scope exams: Colonoscopy. This test can be used to find and remove polyps anywhere in the colon or rectum. The day before the test, you will do a bowel prep. This is a liquid diet plus a strong laxative solution or an enema. The bowel prep will cleanse your colon. You will be given instructions for this. Just before the test, you are given a medicine to make you sleepy. Then, a long, flexible, lighted tube called a colonoscope is gently inserted into the rectum and guided through the entire colon. Images ofthe colon are viewed on a video screen. Any polyps that are found are removed and sent to a lab fortesting. If a polyp can’t be removed, a sample of tissue is taken and the polyp might be removed l ater during surgery. You will need to bring someone with you to drive you home after this test. Sigmoidoscopy. This test is similar to colonoscopy, but focuses only on the sigmoid colon and rectum. As with colonoscopy, bowel prep must be done the day before this test. It might not need to be ascomplete as the bowel prep for a colonoscopy. You are awake during the procedure, but you may be given medicine to help you relax. During the test, the healthcare provider guides a thin, flexible, lighted tube called a sigmoidoscope through your rectum and lower colon. The images are displayed on avideo screen. Polyps are removed, if possible, and sent to a lab for testing. Colonoscopy is the only screening test that lets your healthcare provider see the entire colon and rectum. This test also lets your healthcare provider remove any pieces of tissue that need to be looked at by a lab. If something suspicious is found using any other tests, you will likely need a colonoscopy. When to call your healthcare provider after a test Call your healthcare provider if you have any of the following after any screening test: Bleeding Fever of 100.4°F (38°C) or higher, or as directed by your healthcare provider Abdominal pain Vomiting Date Last Reviewed: 05/18/2015 © 6166-2669 [employer]. [address] [place] [address], [place] [address]. All rights reserved. This information is not intended as a substitute for professional medical care. Always follow your healthcare professional's instructions. documented in this encounter Progress Notes * Carla Evans MD - 08/14/2024 9:53 AM EST Images from the original note were not included. Subjective Isael Jackman is a 54 year old male that presents for Follow Up (Discuss recent increase in anxiety.) Presents today with his brother Krzysztof. Seen by me in March after emergency bypass surgery. Had follow-up visits with Cardiothoracic surgery and 1 visit with MTM to discuss diabetes management and warfarin. However he missed his visit with the end maker and has not been back to see MTM since April. Patient reports taking insulin 40 units daily. We reviewed his medication list and he reports taking all of his medications, including warfarin. Reports checking blood sugars multiple times per day, getting fasting blood sugar values of 100-110. 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 Was told that I needed to clear him to return to work. Currently his most physical activity is carrying a laundry basket up and down a flight of stairs. He is not walking much. He has a treadmill that is notcurrently working, his brother plans to help him fix it this weekend. Reports no chest pain, shortness of breath, palpitations, or lower extremity edema. Hx tobacco use. Quit smoking when he was in the hospital for his bypass surgery. Reports increase in anxiety. Feels completely overwhelmed 1x/mo. Brother does well with hydroxyzine, would like to try it himself. Current medications and allergies reviewed. Past medical history and problem list reviewed. Objective Vitals: 08/14/24 0945 Pulse: 77 SpO2: 99% BP: 124/82 BMI: 33.6 BP Readings from Last 3 Encounters: 08/14/24 124/82 05/21/24 118/74 04/24/24 100/56 Wt Readings from Last 3 Encounters: 08/14/24 234 lb 3.2 oz (106.2 kg) 05/29/24 247 lb 6.4 oz (112.2 kg) 05/21/24 240 lb 11.2 oz (109.2 kg) Physical Exam Vitals and nursing note reviewed. Constitutional: Appearance: Normal appearance. He is not ill-appearing. HENT: Head: Normocephalic and atraumatic. Right Ear: Tympanic membrane, ear canal and external ear normal. There is no impacted cerumen. Left Ear: Tympanic membrane, ear canal and external ear normal. There is no impacted cerumen. Mouth/Throat: Mouth: Mucous membranes are moist. Pharynx: Oropharynx is clear. No oropharyngeal exudate. Eyes: General: No scleral icterus. Pupils: Pupils are equal, round, and reactive to light. Cardiovascular: Rate and Rhythm: Normal rate and regular rhythm. Heart sounds: No murmur heard. Comments: Sternotomy incision well healed Pulmonary: Effort: Pulmonary effort is normal. Breath sounds: Normal breath sounds. Abdominal: General: Abdomen is flat. Bowel sounds are normal. There is no distension. Palpations: Abdomen is soft. There is no mass. Tenderness: There is no abdominal tenderness. There is no guarding or rebound. Hernia: No hernia is present. Musculoskeletal: Right lower leg: No edema. Left lower leg: No edema. Comments: Moves slowly getting up onto and off of the table. Lymphadenopathy: Cervical: No cervical adenopathy. Skin: General: Skin is warm and dry. Coloration: Skin is not jaundiced or pale. Neurological: General: No focal deficit present. Mental Status: He is alert. Psychiatric: Mood and Affect: Mood normal. Behavior: Behavior normal. I have reviewed the following results: CMP, Lipid Panel, and CBC Assessment and Plan Assessment & Plan Coronary Artery Disease status post bypass surgery No reported chest pain or shortness of breath. Patient has been non-compliant with follow-up appointments with cardiology. -Schedule appointment with cardiology for further management and evaluation of cardiac function. Atrial fibrillation with intracardiac thrombus Patient is on warfarin but has not had INR checked since April. Discussed the importance of regular monitoring of INR to prevent stroke or bleeding complications. -Check INR today. -Schedule follow-up with pharmacist for warfarin management. -emphasized importance of getting a head CT if he has any trauma to his head while on blood thinners Type 2 Diabetes Mellitus Patient is on insulin and reports good compliance with self-monitoring of blood glucose. Blood glucose levels reported to be within target range. -Check HbA1c today. -Continue current insulin regimen and self-monitoring of blood glucose. Hyperlipidemia Patient is on Lipitor and reports good compliance. No reported side effects. -Check lipid panel today. -Continue Lipitor as prescribed. Tobacco Use Disorder Patient quit smoking approximately 4-5 months ago. -Encourage continued abstinence from smoking. General Health Maintenance -Check complete blood count, liver function tests, and kidney function tests. -Check urine for protein. -Discuss lung cancer screening in future visits. -Return to work clearance pending lab results. -Schedule follow-up in three months with nurse practitioner. 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, macular edema presence unspecified ([facility]) 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 Special screening for malignant neoplasms, colon - COLOGUARD Wrap-Up Follow Up: Return for Labs Today, Return with Nathan/TERI. | For: Labs Today, Return with Evans/AP Time: I spent a total of 30-39 minutes (exact time 30 mins) on the date of service in preparation, delivery, and documentation of the care provided to Isael Jackman excluding any time spent in the performance of separately billed services. Text in this note was generated using an ambient documentation service. I discussed the use of a device to record and summarize our discussion today. All persons present during the encounter consented to its use. * Melony Roach MED ASSIST - 08/14/2024 9:41 AM EST DM Foot Exam completed today. Provider aware. VANDA Bojorquez Socks and Shoes Removed for Annual Diabetic Foot Screening RIGHT FOOT: No Reddened, Cracking, Or Open Areas Noted. RIGHT Dorsalis Pedis Pulse: Palpable RIGHT Posterior Tibial Pulse: Palpable RIGHT Monofilament:Patient reports feeling monofilament pressure on plantar surface of foot LEFT FOOT: No Reddened, Cracking or Open Areas Noted. LEFT Dorsalis Pedis Pulse: Palpable LEFT Posterior Tibial Pulse: Palpable LEFT Monofilament:Patient reports feeling monofilament pressure on plantar surface of foot Do you need diabetic shoes: No documented in this encounter Plan of Treatment Upcoming Encounters Date Type Department Care Team (Late st Contact Info) Description 11/12/2024 9:40 AM EDT Office Visit Family [address] [place] [address] Rosalba Mata CRNP [address] [place] [address] Scheduled Orders Name Type Priority Associated Diagnoses Orde r Schedule COLOGUARD Lab Unrestricted Lab Special screening for malignant neoplasms, colon Ordered: 08/14/2024 Health Maintenance Due Date Last Done Comments [...] this encounter Medical Devices Implanted Type Area Planner Device Identifier Shelf Expiration Date Model / Serial / Lot Suture Steel 6 B&S19 M654g - [id number] Implanted:Qty: 8 on 04/13/2024 by [place]anc[place] [facility] [place] Sternum JNJ : [employer] 12/12/2028 M654G / / [id number] Marker Coronary - [id number] Implanted:Qty: 2 on 04/13/2024 by Fernando Blanc[place] [facility] [place]: Heart [employer] 02/11/2027 AM-SD / / [id number] documented as of this encounter Results * (ABNORMAL) ALBUMIN / CREATININE RATIO, URINE (08/14/2024 10:32 AM EST) Albumin, Random Urine 3.00 mg/dL 08/14/2024 5:48 PM EST [facility] [place] Creatinine, Random Urine 66 mg/dL 08/14/2024 5:48 PM EST [facility] [place] Albumin / Creatinine Ratio, Urine 45(H) <30 mg/g Creat 08/14/2024 5:48 PM EST [facility] [place] Urine Urine specimen / Unknown Non-blood Collection / Unknown 08/14/2024 10:32 AM EST 08/14/2024 10:32 AM EST Narrative [facility] [place] 08/14/2024 5:48 PM EST Normal: <30 mg/g creatinine High: 30-300 mg/g creatinine Very High: >300 mg/g creatinine Nephrotic: >2200 mg/g creatinine us Carla Evans MD LAB URINE ORDERABLES F inal Result [facility] [place] [address] [place] [address] * PT INR (08/14/2024 10:31 AM EST) Prothrombin Time 14.3 11.6 - 15.2 seconds 08/14/2024 11:03 AM EST [facility] [place] [facility] INR 1.1 0.8 - 1.2 08/14/2024 11:03 AM EST LAB[facility] [place] [facility] Blood Venous blood specimen / Unknown Venipuncture / Unknown 08/14/2024 10:31 AM EST 08/14/2024 10:31 AM EST Narrative [facility] [place] [facility] - 08/14/2024 11:03 AM EST Warfarin Therapy INR: 2.0-3.0 conventional anticoagulation INR: 2.5-3.5 high intensity anticoagulation us Carla Evans MD LAB BLOOD ORDERABLES F inal Result [facility] [place] [place] [address] * (ABNORMAL) HEMOGLOBIN A1C (08/14/2024 10:31 AM EST) Hemoglobin A1C 11.8(H) 4.0 - 5.6 % 08/14/2024 8:36 PM EST [facility] [place] Comment:The use of HbA1c to monitor glycemic status is based on normal hemoglobin and HbA composition. This test should not be used in patients with abnormal hemoglobin that affects the half life of the red blood cell or the in vivo glycation rates. Estimated Average Glucose 292(H) <126 mg/dL 08/14/2024 8:36 PM EST LABORATORY C Blood Venous blood specimen / Unknown Venipuncture / Unknown 08/14/2024 10:31 AM EST 08/14/2024 10:31 AM EST us Carla Evans MD LAB BLOOD ORDERABLES F inal Result Performing Organization Address City/[facility]/ZIP Co de Phone Number [facility] [address] [place] [address] * TSH WITH FREE T4 IF INDICATED (08/14/2024 10:31 AM EST) Pathologist [facility] TSH 1.74 0.27 - 4.20 uIU/mL 08/14/2024 6:51 PM EST LABORATORY [facility] Blood Venous blood specimen / Unknown Venipuncture / Unknown 08/14/2024 10:31 AM EST 08/14/2024 10:31 AM EST us Carla Evans MD LAB BLOOD ORDERABLES F inal Result [facility] [address] [place] [address] * (ABNORMAL) COMPREHENSIVE METABOLIC PANEL (08/14/2024 10:31 AM EST) BUN 22(H) 6 - 20 mg/dL 08/14/2024 11:59 AM EST [facility] [place] [facility] CREATININE 0.7 0.6 - 1.2 mg/dL 08/14/2024 11:59 AM EST [facility] [place] [facility] EGFR >90 >=60 mL/min 08/14/2024 11:59 AM EST [facility] [place] [facility] Comment:eGFR is calculated b ased on the CKD-EPI 2020 equation. SODIUM 137 135 - 146 mmol/L 08/14/2024 11:59 AM EST [facility] [place] [facility] POTASSIUM 4.4 3.5 - 5.1 mmol/L 08/14/2024 11:59 AM EST [facility] [place] [facility] CHLORIDE 98 98 - 107 mmol/L 08/14/2024 11:59 AM EST [facility] [place] [facility] CO2 26 22 - 32 mmol/L 08/14/2024 11:59 AM EST [facility] [place] [facility] [facility] ANION GAP 13 7 - 15 [...] 50 U/L 08/14/2024 11:59 AM EST [facility]ORY [facility] Blood Venous blood specimen / Unknown Venipuncture / Unknown 08/14/2024 10:31 AM EST 08/14/2024 10:31 AM EST Carla Evans MD LAB BLOOD ORDERABLES F inal Result [facility] [place] [address] * (ABNORMAL) LIPID PANEL WITH DIRECT LDL IF TG IS HIGH (08/14/2024 10:31 AM EST) Triglycerides 128 <=174 mg/dL 08/14/2024 6:09 PM EST [facility] Comment: Triglyceride Reference Ranges (mg/dL): <150 Acceptable 150-174 Borderline high 175-499 High >=500 Very high Cholesterol 166 <200 mg/dL 08/14/2024 6:09 PM EST [facility] Comment: Total Cholesterol Reference Ranges (mg/dL): <200 Desirable 200-239 Borderline high >=240 High HDL Cholesterol 28(L) >39 mg/dL 6:09 PM EST [facility]: HDL Cholesterol Reference Ranges (mg/dL): >=60 High (Desirable) <50 Low (Undesirable) For Females <40 Low (Undesirable) For Males Non-HDL Cholesterol 138 <=159 mg/dL 08/14/2024 6:09 PM EST [facility] Comment: Non-HDL Cholesterol Reference Range (mg/dL): <100 Target level for high risk ASCVD patient <130 Optimal for general population 130-159 Near optimal for general population 160-189 Borderline High 190-219 High >=220 Very High LDL Cholesterol 112 <=129 mg/dL 08/14/2024 6:09 PM EST [facility]: LDL Cholesterol Reference Ranges (mg/dL): <70 Target level for high risk ASCVD patient <100 Optimal for general population 100-129 Near optimal for general population 130-159 Borderline high 160-189 High >=190 Very high Blood Venous blood specimen / Unknown Venipuncture / Unknown 08/14/2024 10:31 AM EST 08/14/2024 10:31 AM EST us Carla Evans MD LAB BLOOD ORDERABLES F inal Result [facility] [address] [place] [address] documented in this encounter Visit Diagnoses Diagnosis Type 2 diabetes mellitus with hemoglobin A1c goal of less than 7.0% (HCC)- Primary DM type 2 nursing care encounter (HCC) Type II or unspecified type diabetes mellitus without mention of complication, not stated as uncontrolled 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, macular edema presence unspecified ([facility]) Coronary artery disease involving [place] coronary artery of [place] heart with angina pectoris (HCC) LV (left ventricular) mural thrombus with acute [place] (HCC) Acute myocardial infarction of other specified sites, episode of care unspecified Hypertension, unspecified type Anemia, unspecified type Anxiety state Anxiety state, unspecified Special screening for malignant neoplasms, colon documented in this encounter Advance Directives * [...] Advance Directives occurred with: Patient Care Teams Locomotive Repairer Diesel Relationship Specialty Start Date End Date Carla Evans MD [address] [facility] [place] [address] PCP - General Internal Medicine 04/22/24 documented as of this encounter
--- OUTSIDE RECORDS SUMMARY | 2024-11-04 22:06 | External Medical Summary ---
Author Name Unknown Address Unknown Organization [id number]:[place] [place] [address] [facility] [address] Laboratory Report Ordering Provider Test Date Status JUNITO DEL TORO 08/14/2024 10:31:19 Final Observation Date Value Abnormality Reference (Units ) Status HbA1C 08/14/2024 10:31:19 11.8 Above high normal 4. 0-5.6 (%) Final The use of HbA1c to monitor glycemic status is based on normal hemoglobin and HbA composition. This test should not be used in patients with abnormal hemoglobin that affects the half life of the red blood cell or the in vivo glycation rates. Glucose, estimated average 08/14/2024 10:31:19 292 Above high normal <126 (mg/dL) Gabino jose Performing Location [facility] [place] [address] [facility] [address]
--- OUTSIDE RECORDS SUMMARY | 2024-11-04 22:06 | External Medical Summary | Summary of Care ---
Author Name Unknown Organization [facility] Address [address] [place] [address] Phone [phone] Care Team Providers Care Wood Dowel Machine Operator Name Role Phone Carla Evans MD Primary Care Provider Reason for Visit * Reason Onset Date Comments No Show 06/06/2024 [facility] No Show Auto mation Encounter Details Date Type Department Care Team (Late st Contact Info) Description 06/06/2024 Telephone Vascular Surg [facility] [address] [place] [address] Luz King MD [address] [place] [address] No Show ([place] No Show Automation) Allergies No known active allergiesdocumented as of this encounter (statuses as of 06/06/2024) Medications BD Pen Needle Juana U/F 32G [...] by mouth in the morning. 30 Tablet 4 12:55 PM EDT 04/18/20 24 Active Atorvastatin Calcium 80 MG Oral Tablet (Lipitor) Take 1 Tablet by mouth every afternoon. 30 Tablet 4 12:55 PM EDT 04/18/20 24 Active Lisinopril 2.5 MG Oral Tablet (Prinivil) Take 1 Tablet by mouth in the morning. 30 Tablet 12 4 12:55 PM EDT 04/18/20 24 Active Metoprolol Succinate ER 25 MG Oral Tablet Extended Release 24 Hour (toPROL XL) Take 1 Tablet by mouth in the morning. 30 Tablet 12 4 12:55 PM EDT 04/18/20 24 Active traMADol HCl 50 MG Oral Tablet (Ultram) Take 1 Tablet by mouth every 6 hours as needed for severe pain 10 Tablet 4 11:30 AM EDT 04/18/20 24 Active Contour Next Test In Vitro Strip (Glucose Blood)Indication s:Type 2 diabetes mellitus with hemoglobin A1c goal of less than 7.0% ([facility]) Check blood glucose 4 times per day 200 Strip 12 05/08/20 24 Active Potassium Chloride ER 10 MEQ Oral Tablet Extended Release take one tablet by mouth in the morning do not fill before 05/15/2024 30 Tablet 4 4 4:16 PM EST 04/24/20 24 Active Famotidine 20 MG Oral Tablet (Pepcid) take 1 tablet by mouth on the morning 360 Tablet 4 12:55 PM EDT 05/08/20 24 Active Furosemide 40 MG Oral Tablet (Lasix) Take 1 Tablet by mouth in the morning. Take for 30 days then stop. Do not start before May 15, 2024. 30 Tablet 2 4 4:16 PM EST 05/15/20 24 Active Warfarin Sodium 5 MG Oral Tablet (Coumadin) Take by mouth as directed by the anticoagulation clinic 30 Tablet 2 4 10:50 AM EDT 05/12/20 24 Active Insulin Glargine Solostar 100 UNIT/ML Subcutaneous Solution Pen-injector (Lantus SoloStar) Inject 40 Units under the skin in the morning. 15 mL 12 05/27/20 24 Active documented as of this encounter (statuses as of 06/06/2024) Active Problems Problem Noted Date Diagnosed Date 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 04/23/2024 LV dysfunction 04/05/2024 LV (left ventricular) mural thrombus with acute [place] 04/05/2024 Coronary artery disease invo lving [place] coronary artery of [place] heart with angina pectoris 04/04/2024 NSTEMI (non-ST elevated myocardial infarction) 0 04/04/2024 Type 2 diabetes mellitus wit h hemoglobin A1c goal of less than 7.0% 04/04/2024 Tobacco use 04/04/2024 HTN (hypertension) 04/04/2024 documented as of this encounter (statuses as of 06/06/2024) Resolved Problems Problem Noted Date Diagnosed Date Resolved Date Heart failure with mildly re duced ejection fraction (HFmrEF) 04/05/2024 04/06/2024 documented as of this encounter (statuses as of 06/06/2024) Immunizations Name Administration Dates Next Due HEPATITIS B VACCINE, RECOMB, 20 MCG/ML, ADULT (HEPLISAV-B) 05/27/2024 Pneumococcal Conjugate Vaccine, 20-valent (Prevn ar20) 05/27/2024 Seasonal Influenza, Trivalent, (IIV3), PF, (Fluz one) 04/24/2024 documented as of this encounter Social History Tobacco Use Types Packs/Day Years Used Date Smoking Tobacco: Former Cigarettes Smokeless Tobacco: Never Alcohol Use Standard Drinks/Week Comments Never 0 (1 standard drink = 0.6 oz pur e alcohol) Utilities Answer Date Recorded Do you have trouble paying y our heating, water, or electric bill? (Adult - for ages 18 years and over) Not on file 12/31/2023 Is your family able to pay t he heat, water, or electric bill? (Household - for ages 0-17 years) Not on file 12/31/2023 Does your family have access to good internet? (Household - for ages 0-17 years) Not on file 12/31/2023 Social Connections Answer Date Recorded How often do you feel lonely or isolated from those around you? (Adult - for ages 18 years and over) Not on file 12/31/2023 Sex and Gender Information Value Date Recorded [...] encounter Miscellaneous Notes * Telephone Encounter - [facility], No Show - 06/06/2024 9:34 AM EST Dear Isael Jackman, Looks like you missed an appointment with LUZ KING on 06/03/2024 at 02:10 PM. If you haven't already rescheduled, you have a couple of options: Reschedule in [email or web address] Call us at [phone] Can't make a future appointment? Cancel and let someone else have your spot! It's easy to do via [employer] (formerly [employer]) or by calling us. Thanks for trusting [facility] with your care. We hope to see you back in our office soon. Sincerely, LUZ KING documented in this encounter Plan of Treatment Upcoming Encounters Date Type Department Care Team (Late st Contact Info) Description 07/22/2024 9:20 AM EST Office Visit Pharm[facility] [address] [facility] [address] [place], [facility] [place] [address] [address] [place] [id number] 08/05/2024 11:00 AM EST Imaging Vascular Lab, [facility] [address] 2nd Floor, [place] [address] [facility] [place] [address] 08/05/2024 12:10 PM EST Office Visit Vascular Surgery, [address] [place] [address] Villa Lezama MD [address] [place] [address] 08/14/2024 9:40 AM EST Office Visit Family Practice [facility] [address] [facility] [place] [address] Carla Evans MD [address] [facility] [place] [address] Health Maintenance Due Date Last Done Comments Depression Screening 1982 Albumin/Creatinine Ratio 1988 Diabetic Foot Exam 1988 Cologuard 2015 Colonoscopy 2015 Colorectal Cancer Screening 2015 Fecal Occult Blood Test 2015 Sigmoidoscopy 2015 Zoster Vaccines (1 of 2) 2020 COVID-19 Vaccine ( season) 2024 07/20/2021, 11/27/2020, 10/31/2020 Hepatitis B Vaccine (2 of 2 - CpG 2-dose series) 06/24/2024 05/27/2024 HbA1c 10/02/2024 04/04/2024 GFR 04/18/2025 04/18/2024, 10/0 10/2023, 04/16/2024, Additional history exists Diabetic Eye Exam 04/22/2025 04/22/2024 DTap/Tdap Vaccines (2 - Td or Tdap) 02/23/2027 02/23/2017 Influenza Vaccine (FLU shot) Completed 04/24/2024, 04/07/2018 Pneumococcal Vaccine: Pediatrics (0 to 5 Years) and At-Risk Patients (6 to 64 Years) Completed 05/27/2024 HPV (Gardasil) Vaccine Aged Out No lo nger eligible based on patient's age to complete this topic MENINGOCOCCAL (MENACTRA/MENVEO) Aged Out No longer eligible based on patient's age to complete this topic documented as of this encounter Medical Devices Implanted Type Area Slip Feeder Device Identifier Shelf Expiration Date Model / Serial / Lot Suture Steel 6 B&S19 M654g - [id number] Implanted:Qty: 8 on 04/13/2024 by [place] Blanc[place] [facility] [place] Sternum JNJ : [employer] 12/12/2028 M654G / / [id number] Marker Coronary - [id number] Implanted:Qty: 2 on 04/13/2024 by Fernando Blancas [place] [facility] [place]: Heart [employer] 02/11/2027 [facility] / / [id number] documented as of this encounter Advance Directives [...] Advance Directives occurred with: Patient Care Teams Wood Dowel Machine Operator Relationship Specialty Start Date End Date Carla Evans MD [address] [place] [address] PCP - General Internal Medicine 04/22/24 documented as of this encounter
--- OUTSIDE RECORDS SUMMARY | 2024-11-04 22:06 | External Medical Summary ---
Author Name Unknown Address Unknown Organization [id number]:LAB[facility]ATORY [facility] - [address] [place] [address] Laboratory Report Ordering Provider Test Date Status JUNITO DEL TORO 08/14/2024 10:31:19 Final Observation Date Value Abnormality Reference (Units ) Status BUN 08/14/2024 10:31:19 22 Above high normal 6-20 (mg/dL) Final Creatinine 08/14/2024 10:31:19 0.7 0.6-1.2 (mg/dL) Final Glomerular filtration rate/1.73 sq M.predicted [Volume Rate/Area] in Serum, Plasma or Blood by Creatinine-based formula (CKD-EPI) 08/14/2024 10:31:19 >90 >=60 (mL/min) Final eGFR is calculated based on the CKD-EPI 2020 equation. Sodium 08/14/2024 10:31:19 137 135-146 (m mol/L) Final Potassium 08/14/2024 10:31:19 4.4 3.5-5.1 (m mol/L) Final Cl 08/14/2024 10:31:19 98 98-107 (mm ol/L) Final CO2 08/14/2024 10:31:19 26 22-32 (mmo l/L) Final Anion gap 08/14/2024 10:31:19 13 7-15 (mmol /L) Final Glucose 08/14/2024 10:31:19 359 Above high normal 70 -120 (mg/dL) Final Albumin 08/14/2024 10:31:19 4.6 3.8-5.0 (g /dL) Final AST (Aspartate aminotransferase) 08/14/2024 10:31:19 14 10-50 (U/L) Fin al Alk Phos 08/14/2024 10:31:19 148 Above high normal 35 -130 (U/L) Final Bilirubin, Total 08/14/2024 10:31:19 0.4 <=1 .2 (mg/dL) Final Calcium 08/14/2024 10:31:19 10.7 Above high normal 8. 4-10.2 (mg/dL) Final Protein 08/14/2024 10:31:19 7.6 6.0-8.3 (g /dL) Final ALT (Alanine aminotransferase) 08/14/2024 10:31:19 15 10-50 (U/L) Gabino jose Performing Location LABORATORY [place] [facility] 0 - [address] [facility] [address]
--- OUTSIDE RECORDS SUMMARY | 2024-11-04 22:06 | External Medical Summary ---
Author Name Unknown Address Unknown Organization K01:[facility] [place] [address] [facility] [place] [address] Laboratory Report Ordering Provider Test Date Status JUNITO DEL TORO 08/14/2024 10:31:19 Final Observation Date Value Abnormality Reference (Units ) Status Triglyceride 08/14/2024 10:31:19 128 <=174 ( mg/dL) Final Triglyceride Reference Range s (mg/dL):
<150 Acceptable
150-174 Borderline high
175-499 High
>=500 Very high Cholesterol 08/14/2024 10:31:19 166 <200 (mg /dL) Final Total Cholesterol Reference Ranges (mg/dL):
<200 Desirable
200-239 Borderline high
>=240 High HDL 08/14/2024 10:31:19 28 Below low normal >39 (mg/dL) Final HDL Cholesterol Reference Ra nges (mg/dL):
>=60 High (Desirable)
<50 Low (Undesirable) For Females
<40 Low (Undesirable) For Males NON-HDL CHOLESTEROL 08/14/2024 10:31:19 138 <=159 (mg/dL) Final Non-HDL Cholesterol Referenc e Range (mg/dL):
<100 Target level for high risk ASCVD patient
<130 Optimal for general population
130-159 Near optimal for general population
160-189 Borderline High
190-219 High
>=220 Very High LDL, (calculated) 08/14/2024 10:31:19 112 <= 129 (mg/dL) Final LDL Cholesterol Reference Ra nges (mg/dL):
<70 Target level for high risk ASCVD patient
<100 Optimal for general population
100-129 Near optimal for general population
130-159 Borderline high
160-189 High
>=190 Very high Performing Location LAB[facility] [place] [address] [facility] [address]
--- OUTSIDE RECORDS SUMMARY | 2024-11-04 22:06 | External Medical Summary | Summary of Care ---
Author Name Unknown Organization [facility] Address [address] [address] Phone [phone] Care Team Providers Care Rustic Fence Builder Name Role Phone Carla Evans MD Primary Care Provider Reason for Visit * Reason Comments DSMT INITIAL * Evaluate & Treat - Unlimited Visits (Within 30 days (routine)) - Authorized Specialty Diagnoses / Procedures Referred By Contbobbi t Referred To Contact Pool Installer / Nutrition Services Diagnoses T2DM (type 2 diabetes mellitus) ([facility]) Carla Evans MD [address] [place] [address] Phone: tel: fax: Referral ID Status Reason Start Date Expiration Date Visits Requested Visits Authorized [id number] Authorized Specialty Services Required 04/22/[phone] Encounter Details Date Type Department Care Team (Latest Contact Info) Description 05/29/2024 11:00 AM [facility] [address] [place] [address] Keisha Fortune RDN [address] [place] [address] Type 2 diabetes mellitus with hemoglobin A1c goal of less than 7.0% ([facility])*; 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 30 Tablet 12 4 12:55 PM EDT [...] goal of less than 7.0% ([facility]) Check blood glucose 4 times per day 200 Strip 12 05/08/20 24 Active Potassium Chloride ER 10 MEQ Oral Tablet Extended Release take one tablet by mouth in the morning do not fill before 05/15/2024 30 Tablet 4 4 4:16 PM EST 04/24/20 Active Famotidine 20 MG Oral Tablet (Pepcid) [...] as of this encounter (statuses as of 05/29/2024) Active Problems Problem Noted Date Diagnosed Date 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 04/23/2024 LV dysfunction 04/05/2024 LV (left ventricular) mural thrombus with acute [place] 04/05/2024 Coronary artery disease invo lving o[place] coronary artery of [place] heart with angina pectoris 04/04/2024 NSTEMI (non-ST elevated myocardial infarction) 0 04/04/2024 Type 2 diabetes mellitus wit h hemoglobin A1c goal of less than 7.0% 04/04/2024 Tobacco use 04/04/2024 HTN (hypertension) 04/04/2024 documented as of this encounter (statuses as of 05/29/2024) Resolved Problems Problem Noted Date Diagnosed Date Resolved Date Heart failure with mildly re duced ejection fraction (HFmrEF) 04/05/2024 04/06/2024 documented as of this encounter (statuses as of 05/29/2024) Immunizations Name Administration Dates Next Due HEPATITIS [...] Sign Reading Time Taken Comments Blood Pressure - - Pulse - - Temperature - - Respiratory Rate - - Oxygen Saturation - - Inhaled Oxygen Concentration - - Weight 112.2 kg (247 lb 6.4 oz) 024 11:05 AM EST Height 177.8 cm (5' 10") 05/29/2024 11: 05 AM EST Body Mass Index 35.5 05/29/2024 11:05 AM EST documented in this encounter Functional [...] this encounter Patient Instructions * Patient Instructions* Keisha Fortune RDN - 05/29/2024 11:53 AM EST Participant will review nutrition labels for total grams of carb's and serving size. Aim for no more than 4 servings of carb's per meal. Secondary goal: Participant will continue with current activity regimen. On days of inclement weather, do a workouton the treadmill. Be sure to keep juice or hard candy available if having symptoms of low blood sugar. documented in this encounter Progress Notes * Keisha Fortune RDN - 05/29/2024 11:05 AM EST DIABETES SELF-MANAGEMENT TRAINING/INITIAL NOTE Name: Isael Jackman Date: 05/29/2024 Participant was seen face to face in the clinic. Last order of DIABETES MANAGEMENT EDUCATION (ADA) REFERRAL was found on 04/22/2024 from Telephone on04/22/2024 No order of CLINICAL NUTRITION AND DIABETES EDUCATION ANNUAL RENEWAL is found. No order of PEDIATRIC DIABETES MANAGEMENT EDUCATION (ADA) REFERRAL OP is found. ADA referral in place? Yes Participant scheduled for 1:1 training due to lack of classes scheduled within 2 months of appointment. What diabetes concerns and/or barriers to care would you like to discuss in your appointment: none In your words, what is diabetes? asked/not answered Do you know the risks of uncontrolled diabetes? No Do you believe that diabetes can be controlled? Yes Are you ready to make small changes to help with diabetes self-management: Yes What type of diabetes do you have? Type 2 Diabetes diagnosis year: 2003 Do you have a family history of diabetes? Yes Have you had any previous diabetes education? Yes Support systems: Brother Barriers to care: Impaired vision Special Needs: Large print materials, magnifying glass Psychosocial Screening: Lately have you been feeling down, depressed or hopeless most of the day? No How Do You Manage Stress? Has not identified a way to manage stress Food Insecurity: Within the past 12 months, I worried whether our food would run out before we got money to buy more. No Within the past 12 months, the food we bought just did not last and we did not have money to buy more. No Sleep Health: Addressed - How many hours are you sleeping during the night? 8 hours but not consecutive Do you have difficulty falling or staying asleep? Yes, staying asleep Do you snore? Does not know Are you waking up during the night with symptoms of low glucose levels (shaky, sweaty, nightmares)?No Are you waking up during the night to urinate frequently? Yes Diabetes Medications: Glargine 40 units in the evening Monitoring blood glucose, interpreting and using results Results for orders placed or performed during the hospital encounter of 04/04/24 HEMOGLOBIN A1C Result Value Ref Range Hemoglobin A1C 10.8 (H) 4.0 - 5.6 % Estimated Average Glucose 263 (H) <126 mg/dL Out of target Self-Monitoring Blood Glucose Source of Information: Participant verbally reviewed from memory Frequency of tests: 4 times daily Before breakfast, before lunch, before dinner, and bedtime Low 140's-low 150's Hypoglycemia?: No Diet: Describes typical diet history/24-hour recall Breakfast: rice krispies or Piter Charms or Cheerios cereal with 2% milk or eggs 2 slices of toast or 1 bagel or 1 Korean muffin with PB, Jacob Hume or milk or Powerade or water Snacks: none Lunch: 1-1:30 PM ham & cheese sandwich with ketchup, crackers, water Snacks: none Dinner: fish or chicken tomi sometimes on bread or a roll with tomato, rice or macaroni & cheese or scrambled eggs, milk or juice or water Snacks: none Drinks: water, milk, Amxxnmli-36-24 ounces daily Restaurant meals: twice a month Alcohol: None Tobacco Use: No Weight management review: Wt Readings from Last 6 Encounters: 05/29/24 112.2 kg (247 lb 6.4 oz) 05/21/24 109.2 kg (240 lb 11.2 oz) 04/24/24 109.4 kg (241 lb 1.6 oz) 04/22/24 108.2 kg (238 lb 9.6 oz) 04/18/24 104 kg (229 lb 4.5 oz) Recent weight changes: increased 18 lbs in past Physical Activity: Walking 25-30 minutes daily ADA STANDARDS OF CARE/BUNDLE MEASURES Diabetes Bundle / Standards of Care: Needs annual dilated eye exam, annual foot exam, COVID vaccine, dental exam, and kidney function Therapy Management Plan: Hypertension: BP Readings from Last 3 Encounters: 05/21/24 118/74 04/24/24 100/56 04/22/24 96/58 At goal/target Taking BASSAM Dyslipidemia: Lab Results Component Value Date/Time LDL CHOLESTEROL (CALCULATED) - [facility] 125 04/05/2024 07:04 AM Lab Results Component Value Date/Time TRIGLYCERIDES - [facility] 174 04/05/2024 07:04 AM CHOLESTEROL - [facility] 185 04/05/2024 07:04 AM HDL CHOLESTEROL - [facility] 25 (L) 04/05/2024 07:04 AM Out of target, taking statin Kidney function review: Lab Results Component Value Date/Time ESTIMATED GLOMERULAR FILTRATION RATE - [facility] >90 04/18/2024 04:43 AM No results found for: "ALBUMIN / CREATININE RATIO", "ALBUMIN / CREATININE RATIO, URINE - [facility]" No results found for: "PROTEIN/ CREATININE RATIO", "PROTEIN/ CREATININE RATIO, URINE - [facility]" No recent results to assess DSMT Initial Visit Assessment of Content Areas: Choose the answer that represents the participant's competency in each area. All need to be assessed at initial. Areas taught must match intervention. If content area not assessed and/or intervened today, it will be deferred to future session. Diabetes disease process and treatment process: Needs instruction (1) Incorporating nutrition management into lifestyle: Needs instruction (1) Incorporating physical activity into lifestyle: Needs instruction (1) Using medications safely: Needs review (2) Monitoring blood glucose, interpreting and using results: Needs review (2) Prevention, detection, and treatment of acute complications: Comprehends horne points (3) Prevention, detection, and treatment of chronic complications: Needs instruction (1) Developing strategies to address psychosocial issues: Needs instruction (1) Developing strategies to promote health/change behavior: Needs instruction (1) DSMT/ Diabetes MNT intervention: Pathophysiology: Defined disease process. Discussed treatment options. He admits to a family history of diabetes. Nutrition: Educated on the effects of macronutrients on diabetes control and diabetes complications. Taught and had participant identify foods that contain carbohydrates. Taught participant how to read food labels. Beverages: Educated on the effects of drinking sugar sweetened beverages on blood glucose control. Advised to replace sugar sweetened beverages with a non-sugar containing alternative.Emphasized importance of monitoring portion sizes of high-carb foods. Reviewed recommended portion sizes of some common high-carb foods with him. Discussed benefit of fiber on glucose levels. States he dislikes most low- carb vegetables. Discussed differences between saturated and unsaturated fats. D iscussed effect of the former on insulin function. Encouraged him to aim for 3-4 servings of carb'sper meal. Encouraged him to read nutrition labels for total grams of carb's and serving size. Physical Activity: Educated on the role of physical activity on glucose control. Participant stateshe would like to work on increasing activity level. Medication: Reminded participant of action of lantus. He uses a new needle when injecting; he injects in his hip and rotates sites of injection. States he primes insulin pen. States he had been taking Metformin but notes this was stopped due to insurance issues. States he would be willing to take this again; was also discussed during last MTM pharmacist visit. Monitoring: Participant notes he is checking glucose levels with a meter. Notes no issues with process. Encouraged him to dispose of used lancets in an empty plastic container with a lid. He uses a new lancet with each check. Acute Complications: Participant denies recent hypoglycemic episodes. Notes he has treated these inthe past with juice or other sugar-containing food. Chronic Complications: Advised that a hemoglobin A1c test measures your average blood sugar levels over a span of 2-3 months. Advised that getting your A1c under 7% is the goal for most adults. Educated on chronic complications of diabetes and prevention of retinopathy, nephropathy, neuropathy, andheart disease. Reviewed Standards of Care with him. Discussed need for COVID booster with him; he is agreeable. Discussed need for foot exam-encouraged him to have this done at next PCP visit (08/14/2024)-and kidney labs. States he does not have coverage for eye exam or dental visit. States he brushes his teeth and flosses daily when asked. Participant Selected Behavioral Objective: Nutrition: To improve blood glucose control I will review nutrition labels for total grams of carb's and serving size. Aim for no more than 4 servings of carb's per meal. Recommended Medication Changes: Recommend add 500 mg Metformin XR 1 tablet daily. Education materials given to participant/caregiver and reviewed during today's visit: Understanding CHO's Planning Healthy Meals Diabetes Self-Management Support: Medication Assistance Programs: Medical Assistance Possible Future Topics: Content areas that were not assessed in first visit: All content areas have been assessed. Time Spent With Patient: Time in: 11:04 AM Time out: 11:59 AM Billing: DSMT: 30 Minutes Plan for Return: 4 months Participant provided with contact information for Diabetes Care and Clerical Grader. All [facility] providers within the system are able to see [place] [employer] education and outcomes within the participant's electronic medical record. Keisha Fortune RDN, NUTRITION SERVICES [facility] Diabetes Care and Clerical Grader documented in this encounter Miscellaneous Notes * Pt Handout (on AVS) - Keisha Fortune RDN - 05/29/2024 11:39 AM EST Images from the original note were not included. [id number] Understanding Carbohydrates Just like a car needs the right type of fuel to run, you need the right kind of food to function. To keep your energy level up, your body needs food that has carbohydrates (carbs). But carbs raise blood sugar levels higher and faster than other kinds of food. Your dietitian will work with you to figure out the amount of carbs you need. Carbs come in 3 types: starches, sugars, and fiber. Starches Starches are found in grains, some vegetables, and beans. Grain products include bread, pasta, cereal, and tortillas. Starchy vegetables include potatoes, peas, corn, elliott beans, yams, and squash. Kidney beans, dimas beans, black beans, garbanzo beans, and lentils also have starches. Sugars Sugars are found naturally in many foods. Or they can be added. Foods that contain natural sugar include fruits and fruit juices, dairy products, honey, and molasses. Added sugars are found in most desserts, processed foods, candy, regular soda, and fruit drinks. These are very helpful to treat lowblood sugar (hypoglycemia). They give you sugar quickly. Try to keep at least 15 to 20 grams of these simple sugars with you at all times. Eat or drink these if you start to have symptoms of low blood sugar. Fiber Fiber comes from plant foods. Your body can't digest most fiber. Instead of raising blood sugar levels like other carbs, fiber stops blood sugar from rising too quickly. Fiber is found in fruits, vegetables, whole grains, beans, peas, and many nuts. Understanding how to count your carbs Keep track of the amount of carbs you eat. This can help you keep the right balance of carbs, physical activity, and medicine. The amount of carbs you need will be different from what other people need. How much you need depends on many things. These include your health, the medicines you take, andhow active you are. Your healthcare team will help you figure out the right amount of carbs for you. You may start with 45 to 60 grams of carbs per meal, depending on your case. Carb counting is a system that helps you keep track of the carbohydrates you eat at each meal. Carbs come from many foods. These include grains, starchy vegetables, fruit, milk, beans, and snackfoods. You can either count carbohydrate grams or carbohydrate servings. When you count carbohydrate servings, 1 carbohydrate serving = 15 grams of carbohydrates. Here are some examples of foods that have about 15 grams of carbs (1 serving of carbohydrates): · 1/2 cup of canned or frozen fruit · A small piece of fresh fruit (4 ounces) · 1 slice of bread · 1/2 cup of oatmeal · 1/3 cup of rice · 4 to 6 crackers · 1/2 Korean muffin · 1/2 cup of black beans · 1/4 of a large baked potato (3 ounces) · 2/3 cup of plain fat-free yogurt · 1 cup of soup · 1/2 cup of casserole · 6 chicken nuggets · 7-fkaw-eaewlf brownie or cake without frosting · 2 small cookies · 1/2 cup of ice cream or sherbet Carb counting is easier when food labels are available. Look at the label to see how many grams of total carbs per serving the food contains. Then you can figure out how much you should eat. If your food doesn't have a nutrition label, you should be able to get an idea of how many carbs there are per serving by using a book or website. Two very important lines to look at on the label are the serving size and the total carbohydrate amount per serving. Here are some tips for using food labels to count your carbs: · Check the serving size. The information on the label is based on that serving size. If you eat more than the listed serving size, you may have to double or triple the other information on the label. · Check the total grams of carbs. Total carbohydrate from the label includes sugar, starch, and fiber. Be sure to use the total carbohydrate number (minus the fiber) and not sugar alone. · Know how many grams of carbs you can have. Be familiar with the matching portion sizes. · Compare labels. Compare the labels of different products. Look at serving sizes and total carbs to find the products that work best for you. · Don't forget protein and fat. With the focus on carb counting, it might be easy to forget protein and fat in your meals. Don't forget to include sources of protein and healthy fat to balance your meals. Also watch how much salt (sodium) you eat. This is especially true if you have high blood pressure. If you have diabetes, limit the amount of sodium to less than 2,300 mg a day. It?s also important to be consistent with the amount of carbs and time you eat when taking a fixed dose of diabetes medicine. Work with your healthcare provider or dietitian if you need more help. They can help you keep track of your carbs. They can also help you figure out how many grams of carbs you should have. Last Reviewed Date: 2023 00:00:00 © [employer]. All rights reserved. This information is not intended as a substitute for professional medical care. Always follow your healthcare professional's instructions. documented in this encounter Plan of Treatment Upcoming Encounters Date Type Department Care Team (Late st Contact Info) Description 06/03/2024 1:30 PM EST Imaging Vascular Lab, [facility] 2nd Floor, [place] [address] [facility] [place] [address] 06/03/2024 2:10 PM EST Office Visit Vascular Surgery, [address] [place] [address] Osman King MD [address] [place] [address] 06/04/2024 11:30 AM EST Office Visit Cardiology, [facility] [address] [facility] [place] [address] Lorena Jacinto CRNP [address] [facility] [place] [address] 07/22/2024 9:20 AM EST Office Visit Pharmacy, [facility] [address] [facility] [place] [address] [facility] [address] [facility] [place] [address] 08/14/2024 9:40 AM EST Office Visit Family Practice [facility] [address] [facility] [place] [address] Carla Evans MD [address] [place] [address] Scheduled Referrals Name Type Priority Associated Diagnoses Orde r Schedule DIABETES MANAGEMENT EDUCATION (ADA) REFERRAL Referral Within 30 days (routine) T2DM (type 2 diabetes mellitus) (HCC) Ordered: 04/22/2024 Health Maintenance Due Date Last Done Comments Depression Screening 1982 Albumin/Creatinine Ratio 1988 Diabetic Foot Exam 1988 Cologuard 2015 Colonoscopy 2015 Colorectal Cancer Screening 2015 Fecal Occult Blood Test 2015 Sigmoidoscopy 2015 Zoster Vaccines (1 of 2) 2020 COVID-19 Vaccine ( - season) 2024 07/20/2021, 11/27/2020, 10/31/2020 Hepatitis B Vaccine (2 of 2 - CpG 2-dose series) 06/24/2024 05/27/2024 HbA1c 10/02/2024 04/04/2024 GFR 04/18/2025 04/18/2024, 1010/2023, 04/16/2024, Additional history exists Diabetic Eye Exam [...] this encounter Medical Devices Implanted Type Area Monitor Worker Device Identifier Shelf Expiration Date Model / Serial / Lot Suture Steel 6 B&[id number] [id number] - [id number] Implanted:Qty: 8 on 04/13/2024 by [place] Blancas [place] [facility] [place] Sternum J[place] : [employer] 12/12/2028 [id number] / / [id number] Marker Coronary - [id number] Implanted:Qty: 2 on 04/13/2024 by Fernando Blancas MD [place] [facility] [place]: Heart [employer] 02/11/2027 [facility] / / [id number] documented as of this encounter Visit Diagnoses Diagnosis Type 2 diabetes mellitus with hemoglobin A1c goal of less than 7.0% (HCC)- Primary Coronary artery disease involving [place] coronary artery of [place] heart with angina pectoris (HCC) NSTEMI (non-ST elevated myocardial infarction) (HCC) Acute myocardial infarction, subendocardial infarction, episode of care unspecified 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, macular edema presence unspecified (HCC) LV (left ventricular) mural thrombus with acute [place] (HCC) Acute myocardial infarction of other specified sites, episode of care unspecified Primary hypertension Unspecified essential hypertension LV dysfunction Heart disease, unspecified Obesity, Class II, BMI 35-39.9 Morbid obesity documented in this encounter Advance Directives * [...] Advance Directives occurred with: Patient Care Teams Rustic Fence Builder Relationship Specialty Start Date End Date Carla Evans MD [address] [place] [address] PCP - General Internal Medicine 04/22/24 documented as of this encounter
--- OUTSIDE RECORDS SUMMARY | 2024-11-04 22:06 | External Medical Summary ---
Author Name Unknown Address Unknown Organization [facility] [place] [address] [place] [address] Laboratory Report Ordering Provider Test Date Status WERNER DEL TOROES 08/14/2024 10:31:19 Final Observation Date Value Abnormality Reference (Units ) Status Nucleated erythrocytes/100 leukocytes [Ratio] in Blood by Automated count 08/14/2024 10:31:19 Final Performing Location [facility] [address] [place] [address]
--- OUTSIDE RECORDS SUMMARY | 2024-11-04 22:06 | External Medical Summary | Summary of Care ---
Author Name Unknown Organization [facility] Address [address] [facility] [place] [address] Phone [phone] Care Team Providers Care Navigating Officer Name Role Phone Carla Evans MD Primary Care Provider Reason for Visit * Reason Onset Date Comments Medication Refill 06/09/2024 Encounter Details Date Type Department Care Team (Late st Contact Info) Description 06/09/[address] 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 04/23/2024 LV dysfunction 04/05/2024 LV (left ventricular) mural thrombus with acute [place] 04/05/2024 Coronary artery disease invo lving [place] coronary artery of [place] heart with angina pectoris 04/04/2024 NSTEMI (non-ST elevated myocardial infarction) 0 04/04/2024 Type 2 diabetes mellitus wit h hemoglobin A1c goal of less than 7.0% 04/04/2024 Tobacco use 04/04/2024 HTN (hypertension) 04/04/2024 documented as of this encounter (statuses as of 06/09/2024) Resolved Problems Problem Noted Date Diagnosed Date Resolved Date Heart failure with mildly re duced ejection fraction (HFmrEF) 04/05/2024 04/06/2024 documented as of this encounter (statuses as of 06/09/2024) Immunizations Name Administration Dates Next Due HEPATITIS [...] Author No 04/04/2024 10:09 PM EDT Carina sEcalera RN * Because of a physical, mental, [...] encounter Miscellaneous Notes * Telephone Encounter - Gustabo Montanez liability claims examiner - 06/09/2024 11:00 AM EST Pt calling to request refill for Aspirin. Informed caller refills available at [facility]. Went over pt's active prescription list and informed of other prescriptions with refillsavailable. Caller verbalized understanding and was transferred to pharmacy. Thank you, Gustabo Montanez Mine Administrator Supervisor I [facility] ([facility]) 06/09/2024,11:05 AM documented in this encounter Plan of Treatment Upcoming Encounters Date Type Department Care Team (Late st Contact Info) Description 07/22/2024 9:20 AM EST Office Visit Pharmacy, [address] [place] [address] [facility] [address] [place] [address] 08/05/2024 11:00 AM EST Imaging Vascular Lab, [facility] 2nd Floor, [place] [address] [place] [address] 08/05/2024 12:10 PM EST Office Visit Vascular Surgery, [facility] [address] [place] [address] Villa Lezama MD [address] [place] [address] 08/14/2024 9:40 AM EST Office Visit Family Practice [facility] [address] [place] [address] Carla Evans MD [address] [place] [address] Health Maintenance Due Date Last Done Comments [...] 05/27/2024 HbA1c 10/02/2024 04/04/2024 GFR 04/18/2025 04/18/2024, 10/2023, 04/16/2024, Additional history exists Diabetic Eye [...] this encounter Medical Devices Implanted Type Area Custodian Supervisor Device Identifier Shelf Expiration Date Model / Serial / Lot Suture Steel 6 B&S19 M654g - [id number] Implanted:Qty: 8 on 04/13/2024 by [place] Bl[place] [facility] [place]: Sternum JNJ : [employer] 12/12/2028 M654G / / [id number] Marker Coronary - [id number] Implanted:Qty: 2 on 04/13/2024 by Fernando Blancas [place] [facility]/A: Heart [employer] 02/11/2027 [facility] / / [id number] documented as of this encounter Advance Directives [...] Advance Directives occurred with: Patient Care Teams Navigating Officer Relationship Specialty Start Date End Date Carla Evans MD [address] [place] [address] PCP - General Internal Medicine 04/22/24 documented as of this encounter
--- OUTSIDE RECORDS SUMMARY | 2024-11-04 22:06 | External Medical Summary ---
Author Name Unknown Address Unknown Organization K01:LABORATORY [facility] - [address] [place] [address] Laboratory Report Ordering Provider Test Date Status KATEYWILD 08/14/2024 10:31:19 Final Observation Date Value Abnormality Reference (Units ) Status TSH 08/14/2024 10:31:19 1.74 0.27-4.20 (uIU/mL) Final Performing Location LAB[facility]ATORY [facility] - [address] [place] [address]
--- OUTSIDE RECORDS SUMMARY | 2024-11-04 22:06 | External Medical Summary | Summary of Care ---
Author Name Unknown Organization [facility] Address [address] [facility] [place] [address] Phone [phone] Care Team Providers Care Um Rn Name Role Phone Carla Evans MD Primary Care Provider Encounter Details Date Type Department Care Team (Late st Contact Info) Description 08/03/2024 Population Health External Data Unspecified Department Allergies No known active allergiesdocumented as of this encounter (statuses as of 08/03/2024) Medications BD Pen Needle [place] U/F 32G [...] 4 3:31 PM EST 04/18/20 24 Active traMADol HCl 50 MG Oral Tablet (Ultram) Take 1 Tablet by mouth every 6 hours as needed for severe pain 10 Tablet 4 11:30 AM EDT 04/18/20 24 Active Contour Next Test In Vitro Strip (Glucose Blood)Indication s:Type 2 diabetes mellitus with hemoglobin A1c goal of less than 7.0% ([facility]) Check blood glucose 4 times per [...] as of this encounter (statuses as of 08/03/2024) Active Problems Problem Noted Date Diagnosed Date 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 04/23/2024 LV dysfunction 04/05/2024 LV (left ventricular) mural thrombus with acute [place] 04/05/2024 Coronary artery disease invo lving [place] coronary artery of [place] heart with angina pectoris 04/04/2024 NSTEMI (non-ST elevated myocardial infarction) 0 04/04/2024 Type 2 diabetes mellitus wit h hemoglobin A1c goal of less than 7.0% 04/04/2024 Tobacco use 04/04/2024 HTN (hypertension) 04/04/2024 documented as of this encounter (statuses as of 08/03/2024) Resolved Problems Problem Noted Date Diagnosed Date Resolved Date Heart failure with mildly re duced ejection fraction (HFmrEF) 04/05/2024 04/06/2024 documented as of this encounter (statuses as of 08/03/2024) Immunizations Name Administration Dates Next Due HEPATITIS [...] Care Team (Late st Contact Info) Description 08/05/2024 12:10 PM EST Office Visit Vascular Surgery, [facility] [address] [place] [address] Villa Lezama MD [address] [place] [address] 08/12/2024 11:30 AM EST Office Visit Pharmacy, [facility] [address] [place] [address] [facility] [address] [place] [address] 08/14/2024 9:40 AM EST Office Visit Family Practice [facility] [address] [place] [address] Carla Evans MD [address] [place] [address] Health Maintenance Due Date Last Done Comments [...] 04/07/2018 Pneumococcal Vaccine: 50+ Years Completed 05/27/2024 HPV (Gardasil) Vaccine Aged Out No lo nger eligible based on patient's age to complete this topic MENINGOCOCCAL (MENACTRA/MENVEO) Aged Out No longer eligible based on patient's age to complete this topic documented as of this encounter Medical Devices Implanted Type Area Swimming Pool Installer Device Identifier Shelf Expiration Date Model / Serial / Lot Suture Steel 6 B&S19 M654g - [id number] Implanted:Qty: 8 on 04/13/2024 by Fernando Blancas MD at [place] [facility] [place] N/A: Sternum JNJ : [employer] 12/12/2028 M654G / / [id number] Marker Coronary - [id number] Implanted:Qty: 2 on 04/13/2024 by Fernando Blancas MD at [place] [facility] [place] N/A: Heart [employer] 02/11/2027 [facility] / / [id number] documented as of this encounter Advance Directives [...] Advance Directives occurred with: Patient Care Teams Um Rn Relationship Specialty Start Date End Date Carla Evans MD [address] [place] [address] PCP - General Internal Medicine 04/22/24 documented as of this encounter
--- OUTSIDE RECORDS SUMMARY | 2024-11-04 22:06 | External Medical Summary | Summary of Care ---
Author Name Unknown Organization [facility] Address [address] [place] [address] Phone [phone] Care Team Providers Care Manager Sterile Name Role Phone Carla Evans MD Primary Care Provider Reason for Visit * Reason Onset Date Comments No Show 08/08/2024 [facility] No Show Auto mation Encounter Details Date Type Department Care Team (Late st Contact Info) Description 08/08/2024 Telephone Vascular Surg [facility] [address] [place] [address] Villa Conrad MD [address] [place] [address] No Show ([place] No Show Automation) Allergies No known active allergiesdocumented as of this encounter (statuses as of 08/08/2024) Medications BD Pen Needle Juana U/F 32G [...] goal of less than 7.0% ([facility]) Check blood glucose 4 times per day [...] 360 Tablet 4 12:55 PM EDT 05/08/20 Active Furosemide 40 MG Oral Tablet (Lasix) Take 1 Tablet by mouth in the morning. Take for 30 days then stop. Do not start before May 15, 2024. 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 04/23/2024 LV dysfunction 04/05/2024 LV (left ventricular) mural thrombus with acute [place] 04/05/2024 Coronary artery disease invo lving [place] coronary artery of [place] heart with angina pectoris 04/04/2024 NSTEMI (non-ST elevated myocardial infarction) 0 04/04/2024 Type 2 diabetes mellitus wit h hemoglobin A1c goal of less than 7.0% 04/04/2024 Tobacco use 04/04/2024 HTN (hypertension) 04/04/2024 documented as of this encounter (statuses as of 08/08/2024) Resolved Problems Problem Noted Date Diagnosed Date Resolved Date Heart failure with mildly re duced ejection fraction (HFmrEF) 04/05/2024 04/06/2024 documented as of this encounter (statuses as of 08/08/2024) Immunizations Name Administration Dates Next Due HEPATITIS [...] Author No 04/04/2024 10:09 PM EDT Carina Escalrea RN * Are you blind or do [...] encounter Miscellaneous Notes * Telephone Encounter - [facility], No Show - 08/08/2024 9:55 AM EST Dear Isael Jackman, Looks like you missed an appointment with VILLA CONRDA on 08/05/2024 at 12:10 PM. If you haven't already rescheduled, you have a couple of options: Reschedule in [email or web address] Call us at [phone] Can't make a future appointment? Cancel and let someone else have your spot! It's easy to do via Diabetica or by calling us. [facility] We hope to see you back in our office soon. Sincerely, VILLA CONRAD documented in this encounter Plan of Treatment Upcoming Encounters Date Type Department Care Team (Late st Contact Info) Description 08/12/2024 11:30 AM EST Office Visit Pharmacy, [facility] [address] [place] [address] [facility] [place] [address] [place] [address] 08/14/2024 9:40 AM EST Office Visit Family Practice [facility] [address] [place] [address] Carla Evans MD [address] [place] [address] Health Maintenance Due Date Last Done Comments [...] 05/27/2024 HbA1c 10/02/2024 04/04/2024 GFR 04/18/2025 04/18/2024, 10/10/2023, 04/16/2024, Additional history exists Diabetic Eye Exam [...] this encounter Medical Devices Implanted Type Area Finance Officer Device Identifier Shelf Expiration Date Model / Serial / Lot Suture Steel 6 B&S19 M654g - [id number] Implanted:Qty: 8 on 04/13/2024 by Fernando Blancas MD at [place] [facility] [place] N/A: Sternum JNJ : [employer] 12/12/2028 M654G / / [id number] Marker Coronary - [id number] Implanted:Qty: 2 on 04/13/2024 by Fernando Blancas MD at [place] [facility] [place] N/A: Heart [employer] 02/11/2027 [facility] / / [id number] documented as of this encounter Advance Directives [...] Advance Directives occurred with: Patient Care Teams Manager Sterile Relationship Specialty Start Date End Date Carla Evans MD [address] [place] [address] PCP - General Internal Medicine 04/22/24 documented as of this encounter
--- OUTSIDE RECORDS SUMMARY | 2024-11-04 22:06 | External Medical Summary | Summary of Care ---
Author Name Unknown Organization [facility] Address [address] [place] [address] Phone [phone] Care Team Providers Care Substation Supervisor Name Role Phone Carla Evans MD Primary Care Provider Reason for Visit * Reason Onset Date Comments TRIAGE 05/07/2024 Encounter Details Date Type Department Care Team (Late st Contact Info) Description 05/07/2024 Telephone Vascular Surg [facility] [address] [place] [address] Osman King MD [address] [place] [address] TRIAGE Allergies No known active allergiesdocumented as of this encounter (statuses as of 06/04/2024) Medications BD Pen Needle Ju[place] U/F 32G [...] Contour Next Test In Vitro Strip (Glucose Blood) Check blood glucose 4 times per day 200 Strip 12 4 11:30 AM EDT 04/17/20 24 024 Discontin ued(Refil l) Famotidine 20 MG Oral Tablet (Pepcid) Take 1 Tablet by mouth in the morning. Take for 30 days then stop. 30 Tablet 4 11:30 AM EDT 04/18/20 24 024 Discontin ued(Refil l) Warfarin Sodium 5 MG Oral Tablet (Coumadin) Take by mouth as directed by the anticoagulation clinic 30 Tablet 2 4 11:30 AM EDT 04/18/20 24 024 Discontin ued(Refil l) Furosemide 40 MG Oral Tablet (Lasix) Take 1 Tablet by mouth in the morning. Take for 30 days then stop. Do not start before May 15, 2024. 30 Tablet 3 05/15/20 24 024 Discontin ued(Refil l) Potassium Chloride ER 10 MEQ Oral Tablet Extended Release Take 1 Tablet by mouth in the morning. For 30 days then stop. Do not start before May 15, 2024. 30 Tablet 3 05/15/20 24 024 Discontin ued(Medic ation List Clean Up) Insulin Glargine Solostar 100 UNIT/ML Subcutaneous Solution Pen-injector (Lantus SoloStar) Inject 36 Units under the skin in the morning. 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 04/23/2024 LV dysfunction 04/05/2024 LV (left ventricular) mural thrombus with acute [place] 04/05/2024 Coronary artery disease invo lving [place] coronary artery of [place] heart with angina pectoris 04/04/2024 NSTEMI (non-ST elevated myocardial infarction) 0 04/04/2024 Type 2 diabetes mellitus wit h hemoglobin A1c goal of less than 7.0% 04/04/2024 Tobacco use 04/04/2024 HTN (hypertension) 04/04/2024 documented as of this encounter (statuses as of 06/04/2024) Resolved Problems Problem Noted Date Diagnosed Date Resolved Date Heart failure with mildly re duced ejection fraction (HFmrEF) 04/05/2024 04/06/2024 documented as of this encounter (statuses as of 06/04/2024) Immunizations Name Administration Dates Next Due HEPATITIS [...] encounter Miscellaneous Notes * Telephone Encounter - Shante Smith LPN - 06/04/2024 1:10 PM EST Pt was a no show for testing and office visit in 's. Attempted to contact patient to see if he would like to do a telephonic appt with Bucky tomorrowfilomena. Left message to return phone call. Shante Smith LPN 06/04/2024 1:11 PM * Telephone Encounter - Mel Gomez CRNP - 05/07/2024 9:04 AM EDT Scheduled and matched with carotid for stenosis No additional testing. thanks * Telephone Encounter - Shante Smith LPN - 05/07/2024 8:39 AM EDT New pt - 06/03 cedric documented in this encounter Plan of Treatment Upcoming Encounters Date Type Department Care Team (Late st Contact Info) Description 07/22/2024 9:20 AM EST Office Visit Pharmacy, [facility] [address] [place] [address] [facility] [address] [place] [address] 08/14/2024 9:40 AM EST Office Visit Family Practice [facility] [address] [place] [address] Carla Evans MD [address] [place] [address] Health Maintenance Due Date Last Done Comments [...] this encounter Medical Devices Implanted Type Area Newspaper Columnist Device Identifier Shelf Expiration Date Model / Serial / Lot Suture Steel 6 B&S19 M654g - [id number] Implanted:Qty: 8 on 04/13/2024 by Fernando Blancas MD at [place] [facility] [place] N/A: Sternum JNJ : [employer] 12/12/2028 M654G / / [id number] Marker Coronary - [id number] Implanted:Qty: 2 on 04/13/2024 by Fernando Blancas MD at OR [facility] [place] N/A: Heart [employer] 02/11/2027 [facility] / / [id number] documented as of this encounter Advance Directives [...] Advance Directives occurred with: Patient Care Teams Substation Supervisor Relationship Specialty Start Date End Date Carla Evans MD [address] [place] [address] PCP - General Internal Medicine 04/22/24 documented as of this encounter
--- OUTSIDE RECORDS SUMMARY | 2024-11-04 22:06 | External Medical Summary ---
Author Name Unknown Address Unknown Organization K0G:LABORATORY [facility] - [address] [place] [address] Laboratory Report Ordering Provider Test Date Status JUNITO DEL TORO 08/14/2024 10:31:19 Final Observation Date Value Abnormality Reference (Units ) Status SYNC LEUKOCYTES IN BLOOD BY AUTOMATED COUNT 08/14/2024 10:31:19 11.92 Above high normal 4.00-10.80 (K/uL) Final Segs 08/14/2024 10:31:19 59.4 40.0-75.0 (%) Final Lymphs % 08/14/2024 10:31:19 30.2 18.0-42.0 (%) Final Monos 08/14/2024 10:31:19 7.3 1.0-11.0 (%) Final Eosinophils 08/14/2024 10:31:19 2.8 0.0-6.0 (%) Final Basos 08/14/2024 10:31:19 0.3 0.0-2.0 (%) Final Absolute Segs 08/14/2024 10:31:19 7.08 1.80-7.70 (K/uL) Final Lymphs, absolute 08/14/2024 10:31:19 3.60 1.00-4.80 (K/ul) Final Monos, Abs 08/14/2024 10:31:19 0.87 0.00-1.10 (K/uL) Final Eos, Abs 08/14/2024 10:31:19 0.33 0.00-0.70 (K/uL) Final Basos, Abs 08/14/2024 10:31:19 0.04 0.00-0.20 (K/uL) Final Performing Location LABORATORY [facility] 0 - [address] [place] [address]
--- OUTSIDE RECORDS SUMMARY | 2024-11-04 22:06 | External Medical Summary ---
Author Name Unknown Address Unknown Organization K0G:[facility]ATORY [facility] [place] [facility] - [address] [place] [address] Laboratory Report Ordering Provider Test Date Status JUNITO DEL TORO 08/14/2024 10:31:19 Final Warfarin Therapy
INR: 2 .0-3.0 conventional anticoagulation
INR: 2.5- 3.5 high intensity anticoagulation Observation Date Value Abnormality Reference (Units ) Status PT 08/14/2024 10:31:19 14.3 11.6-15.2 (seconds) Final INR 08/14/2024 10:31:19 1.1 0.8-1.2 Final Performing Location LAB[facility]ATORY [facility] - [address] [place] [address]
--- OUTSIDE RECORDS SUMMARY | 2024-11-04 22:06 | External Medical Summary | Summary of Care ---
Author Name Unknown Organization [facility] Address [address] [facility] [place] [address] Phone [phone] Care Team Providers Care Building Equipment Inspector Name Role Phone Carla Evans MD Primary Care Provider Reason for Visit * Reason Onset Date Comments No Show 06/07/2024 [facility] No Show Auto mation Encounter Details Date Type Department Care Team (Late st Contact Info) Description 06/07/2024 Telephone Cardiology, [facility] [address] [place] [address] Deyanira Rhodes CRNP [address] [place] [address] No Show ([place] No Show Automation) Allergies No known active allergiesdocumented as of this encounter (statuses as of 06/07/2024) Medications BD Pen Needle [place] U/F 32G X 4 MM (Insulin Pen Needle) Use to inject insulin 4 times per day 200 Each 4 12:55 PM EDT 04/17/20 24 Active Microlet Lancets Use to check blood glucose 4 times per day 200 Each 04/17/20 24 Active Aspirin 81 MG Oral [...] hemoglobin A1c goal of less than 7.0% ([facility]) Check blood glucose 4 times per [...] as of this encounter (statuses as of 06/07/2024) Active Problems Problem Noted Date Diagnosed Date 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 04/23/2024 LV dysfunction 04/05/2024 LV (left ventricular) mural thrombus with acute [place] 04/05/2024 Coronary artery disease invo lving [place] coronary artery of [place] heart with angina pectoris 04/04/2024 NSTEMI (non-ST elevated myocardial infarction) 0 04/04/2024 Type 2 diabetes mellitus wit h hemoglobin A1c goal of less than 7.0% 04/04/2024 Tobacco use 04/04/2024 HTN (hypertension) 04/04/2024 documented as of this encounter (statuses as of 06/07/2024) Resolved Problems Problem Noted Date Diagnosed Date Resolved Date Heart failure with mildly re duced ejection fraction (HFmrEF) 04/05/2024 04/06/2024 documented as of this encounter (statuses as of 06/07/2024) Immunizations Name Administration Dates Next Due HEPATITIS [...] encounter Miscellaneous Notes * Telephone Encounter - [facility], No Show - 06/07/2024 4:49 AM EST Dear Isael Jackman, Looks like you missed an appointment with DEYANIRA RHODES on 06/04/2024 at 11:30 AM. If you haven't already rescheduled, you have a couple of options: Reschedule in [email or web address] Call us at [phone] Can't make a future appointment? Cancel and let someone else have your spot! It's easy to do via Zinio or by calling us. [facility] We hope to see you back in our office soon. Sincerely, DEYANIRA RHODES documented in this encounter Plan of Treatment Upcoming Encounters Date Type Department Care Team (Late st Contact Info) Description 07/22/2024 9:20 AM EST Office Visit Pharmacy, [facility] [address] [facility] [place] [address] [place], [facility] [address] [place] [address] 08/05/2024 11:00 AM EST Imaging Vascular Lab, [facility] 2nd Floor, [address] [place] [address] 08/05/2024 12:10 PM EST Office Visit Vascular Surgery, [address] [place] [address] Villa Lezama MD [address] [place] [address] 08/14/2024 9:40 AM EST Office Visit Family Practice [facility] [address] [facility] [place] [address] Carla Evans MD 132 [facility] [place] [address] Health Maintenance Due Date Last Done Comments [...] encounter Medical Devices Implanted Type Area Adjunct Phlebotomy Instructor Device Identifier Shelf Expiration Date Model / Serial / Lot Suture Steel 6 B&S19 M654g - [id number] Implanted:Qty: 8 on 04/13/2024 by [place] Blanc[place] [facility] [place]: Sternum JNJ : [employer] 12/12/2028 M654G / / [id number] Marker Coronary - [id number] Implanted:Qty: 2 on 04/13/2024 by Fernando Blancas MD [place] [facility] [place]A: Heart [employer] 02/11/2027 [facility] / / [id number] documented as of this encounter Advance Directives [...] Advance Directives occurred with: Patient Care Teams Building Equipment Inspector Relationship Specialty Start Date End Date Carla Evans MD [address] [place] [address] PCP - General Internal Medicine 04/22/24 documented as of this encounter
--- OUTSIDE RECORDS SUMMARY | 2024-11-04 22:06 | External Medical Summary | Summary of Care ---
Author Name Unknown Organization [facility] Address [address] [facility] [address] Phone [phone] Care Team Providers Care Restaurant Expeditor Name Role Phone Carla Evans MD Primary Care Provider Reason for Visit * Reason Comments DSMT INITIAL * Evaluate & Treat - Unlimited Visits (Within 30 days (routine)) - Authorized Specialty Diagnoses / Procedures Referred By Contbobbi t Referred To Contact Consumer Affairs Director / Nutrition Services Diagnoses T2DM (type 2 diabetes mellitus) ([facility]) Carla Evans MD [address] [place] [address] Phone: tel: fax: Referral ID Status Reason Start Date Expiration Date Visits Requested Visits Authorized [id number] Authorized Specialty Services Required 04/22/[phone] Encounter Details Date Type Department Care Team (Latest Contact Info) Description 05/29/2024 11:00 AM [facility] [address] [place] [address] Keisha Fortune RDN [address] [place] [address] Type 2 diabetes mellitus with hemoglobin A1c goal of less than 7.0% ([facility])*; 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 ([facility]); NSTEMI (non-ST elevated myocardial infarction) ([facility]); 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, macular edema presence unspecified ([facility]); LV (left ventricular) mural thrombus with acute [place] ([facility]); Primary hypertension; LV dysfunction; Obesity, [...] hemoglobin A1c goal of less than 7.0% ([facility]) Check blood glucose 4 times [...] [place] 04/05/2024 Coronary artery disease invo lving alt[place] coronary artery of alturas heart with angina pectoris 04/04/2024 NSTEMI (non-ST [...] of toast or 1 bagel or 1 Faroese muffin with PB, Jacob [place] or milk or Powerade or water Snacks: none Lunch: 1-1:30 PM ham & cheese sandwich with ketchup, crackers, water Snacks: none Dinner: fish or chicken tomi sometimes on bread or a roll with tomato, rice or macaroni & cheese or scrambled eggs, milk or juice or water Snacks: none Drinks: water, milk, [id number]-[id number] ounces daily Restaurant meals: twice a month [...] with contact information for Diabetes Care and Reel Hooker. All [facility] providers within the system are able to see [place] [employer] education and outcomes within the participant's electronic medical record. Keisha Fortune RDN, NUTRITION SERVICES [facility] Diabetes Care and Reel Hooker documented in this encounter Miscellaneous Notes * Pt Handout (on AVS) - Keisha Fortune RDN - 05/29/2024 11:39 AM EST Images from the original note were not included. [address] Understanding Carbohydrates Just like a car needs [...] · 4 to 6 crackers · 1/2 Faroese muffin · 1/2 cup of black beans · 1/4 of a large baked potato (3 ounces) · 2/3 cup of plain fat-free yogurt · 1 cup of soup · 1/2 cup of casserole · 6 chicken nuggets · 7-ucyj-ogvfei brownie or cake without frosting · 2 [...] have. Last Reviewed Date: 2023 00:00:00 © [employer]. All rights reserved. This information is not intended as a substitute for professional medical care. Always follow your healthcare professional's instructions. documented in this encounter Plan of Treatment Upcoming Encounters Date Type Department Care Team (Late st Contact Info) Description 06/03/2024 1:30 PM EST Imaging Vascular Lab, [facility] 2nd Floor, [place] [address] [facility] [place] [address] 06/03/2024 2:10 PM EST Office Visit Vascular Surgery, [address] [place] [address] Osman King MD [address] [place] [address] 06/04/2024 11:30 AM EST Office Visit Cardiology, [facility] [address] [facility] [place] [address] Lorena Jacinto CRNP 132 [facility] [place] [address] 07/22/2024 9:20 AM EST Office Visit Pharmacy, [facility] 132 [facility] [place] [address] [facility] 132 [facility] [place] [address] 08/14/2024 9:40 AM EST Office Visit Family Practice [facility] 132 [facility] [place] [address] Carla Evans MD [address] [place] [address] Scheduled Referrals Name Type Priority Associated Diagnoses [...] this encounter Medical Devices Implanted Type Area Industrial Equipment Wirer Device Identifier Shelf Expiration Date Model / Serial / Lot Suture Steel 6 B&S19 M654g - [id number] Implanted:Qty: 8 on 04/13/2024 by Fernando Blancas MD [place] [facility] [place]A: Sternum JNJ : [employer] 12/12/2028 [id number] / / [id number] Marker Coronary - [id number] Implanted:Qty: 2 on 04/13/2024 by Fernando Blancas MD [place] [facility] N/A: Heart [employer] 02/11/2027 [facility] / / [id number] documented as of this encounter Visit Diagnoses Diagnosis Type 2 diabetes mellitus with hemoglobin A1c goal of less than 7.0% (HCC)- Primary 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
--- OUTSIDE RECORDS SUMMARY | 2024-11-04 22:06 | External Medical Summary | Summary of Care ---
Author Name Unknown Organization [facility] Address [address] [facility] [place] [address] Phone [phone] Care Team Providers Care Deep Sea Diver Name Role Phone Carla Evans MD Primary Care Provider Reason for Visit * Reason Onset Date Comments Health Maintenance 06/08/2024 Encounter Details Date Type Department Care Team (Late st Contact Info) Description 06/08/2024 Telephone Family Practice [facility] [address] [place] [address] Carla Evans MD [address] [place] [address] Health Maintenance Allergies No known active allergiesdocumented as of this encounter (statuses as of 06/08/2024) Medications BD Pen Needle [place] U/F 32G [...] hemoglobin A1c goal of less than 7.0% ([facility]) Check blood glucose 4 times per [...] as of this encounter (statuses as of 06/08/2024) Active Problems Problem Noted Date Diagnosed Date 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 04/23/2024 LV dysfunction 04/05/2024 LV (left ventricular) mural thrombus with acute [place] 04/05/2024 Coronary artery disease invo lving [place] coronary artery of [place] heart with angina pectoris 04/04/2024 NSTEMI (non-ST elevated myocardial infarction) 0 04/04/2024 Type 2 diabetes mellitus wit h hemoglobin A1c goal of less than 7.0% 04/04/2024 Tobacco use 04/04/2024 HTN (hypertension) 04/04/2024 documented as of this encounter (statuses as of 06/08/2024) Resolved Problems Problem Noted Date Diagnosed Date Resolved Date Heart failure with mildly re duced ejection fraction (HFmrEF) 04/05/2024 04/06/2024 documented as of this encounter (statuses as of 06/08/2024) Immunizations Name Administration Dates Next Due HEPATITIS [...] Telephone Encounter - Anny Zhang LPN - 06/08/2024 10:18 AM EST Care Gaps Comprehensive Care Outreach Last Office/Telemedicine Visit: 04/22/2024 (in office), Visit date not found (telemedicine) Next Office Visit: 08/14/2024 Hemoglobin AIC Results: Lab Results Component Value Date/Time HEMOGLOBIN A1C - [facility] 10.8 (H) 04/04/2024 10:45 PM BP Readings from Last 1 Encounters: 05/21/24 118/74 Reviewed Health Maintenance below: Health Maintenance Topic Date Due Depression Screening Never done Albumin/Creatinine Ratio Never done Diabetic Foot Exam Never done Colorectal Cancer Screening Never done Zoster Vaccines (1 of 2) Never done COVID-19 Vaccine ( season) 2024 Hepatitis B Vaccine (2 of 2 - CpG 2-dose series) 06/24/2024 Colon on hold. Just placed on blood thinner cabg Care Gap Outreach Action Taken: Outreach not indicated documented in this encounter Plan of Treatment Upcoming Encounters Date Type Department Care Team (Late st Contact Info) Description 07/22/2024 9:20 AM EST Office Visit Pharmacy, [address] [place] [address] [facility] [address] [place] [address] 08/05/2024 11:00 AM EST Imaging Vascular Lab, [facility] II 2nd Floor, [place] 132 [facility] [place] [address] 08/05/2024 12:10 PM EST Office Visit Vascular Surgery, [address] [place] [address] Villa Lezama MD [address] [place] [address] 08/14/2024 9:40 AM EST Office Visit Family Practice [facility] 132 [facility] [place] [address] Carla Evans MD 132 [facility] [place] [address] Health Maintenance Due Date Last Done Comments [...] this encounter Medical Devices Implanted Type Area Neurology Physician Assistant Device Identifier Shelf Expiration Date Model / Serial / Lot Suture Steel 6 B&S19 M654g - [id number] Implanted:Qty: 8 on 04/13/2024 by Fernando Blancas MD at [place] [facility] N/A: Sternum JNJ : [employer] 12/12/2028 M654G / / [id number] Marker Coronary - [id number] Implanted:Qty: 2 on 04/13/2024 by Fernando Blancas MD at OR [facility] N/A: Heart [employer] 02/11/2027 [facility] / / [id number] documented as of this encounter Advance Directives [...] Advance Directives occurred with: Patient Care Teams Deep Sea Diver Relationship Specialty Start Date End Date Carla Evans MD 132 [facility] [place] [address] PCP - General Internal Medicine 04/22/24 documented as of this encounter
--- OUTSIDE RECORDS SUMMARY | 2024-11-04 22:06 | External Medical Summary ---
Author Name Unknown Address Unknown Organization K01:[facility] [place] - [address] [facility] [address] [place] [address] Laboratory Report Ordering Provider Test Date Status JUNITO DEL TORO 08/14/2024 10:32:08 Final Normal: <30 mg/g creatinine< br/>High: 30-300 mg/g creatinine
Very High: >300 mg/g creatinine
Nephrotic: >2200 mg/g creatinine Observation Date Value Abnormality Reference (Units ) Status Albumin, Urine 08/14/2024 10:32:08 3.00 (mg/dL) Final Creatinine, Urine 08/14/2024 10:32:08 66 (mg/dL) Final Albumin/Creatinine [Mass Ratio] in Urine 08/14/2024 10:32:08 45 Above high normal <30 (mg/g Creat) Final Performing Location [facility] [place] - [address] [place] [address]
--- OUTSIDE RECORDS SUMMARY | 2024-11-04 22:06 | External Medical Summary | Summary of Care ---
Author Name Unknown Organization [facility] Address [address] [place] [address] Phone [phone] Care Team Providers Care Stitch Bonding Machine Tender Helper Name Role Phone Carla Evans MD Primary Care Provider Reason for Visit * Reason Onset Date Comments Appointment Canceled 08/06/2024 Encounter Details Date Type Department Care Team (Late st Contact Info) Description 08/06/2024 Telephone Vascular Surgery, [facility] [address] [place] [address] Fernando Davis PA-C [address] [place] [address] Appointment Canceled Allergies No known active allergiesdocumented as of this encounter (statuses as of 08/06/2024) Medications BD Pen Needle [place] U/F 32G [...] goal of less than 7.0% ([facility]) Check blood glucose 4 times [...] as of this encounter (statuses as of 08/06/2024) Active Problems Problem Noted Date Diagnosed Date 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 04/23/2024 LV dysfunction 04/05/2024 LV (left ventricular) mural thrombus with acute [place] 04/05/2024 Coronary artery disease invo lving [place] coronary artery of [place] heart with angina pectoris 04/04/2024 NSTEMI (non-ST elevated myocardial infarction) 0 04/04/2024 Type 2 diabetes mellitus wit h hemoglobin A1c goal of less than 7.0% 04/04/2024 Tobacco use 04/04/2024 HTN (hypertension) 04/04/2024 documented as of this encounter (statuses as of 08/06/2024) Resolved Problems Problem Noted Date Diagnosed Date Resolved Date Heart failure with mildly re duced ejection fraction (HFmrEF) 04/05/2024 04/06/2024 documented as of this encounter (statuses as of 08/06/2024) Immunizations Name Administration Dates Next Due HEPATITIS [...] encounter Miscellaneous Notes * Telephone Encounter - Fernando Davis PA-C - 08/06/2024 7:59 AM EST Please put this pt on the "do not call back for an appointment" list. He is a carotid that has not shown up for studies and visits. He has been sent a letter. documented in this encounter Plan of Treatment Upcoming Encounters Date Type Department Care Team (Late st Contact Info) Description 08/12/2024 11:30 AM EST Office Visit Pharmacy, [facility] 132 [facility] [place] [address] [facility] [address] [place] [address] 08/14/2024 9:40 AM EST Office Visit Family Practice [facility] [address] [place] [address] Carla Evans MD [address] [place] [address] Health Maintenance Due Date Last Done Comments [...] this encounter Medical Devices Implanted Type Area Harmonic Analyst Device Identifier Shelf Expiration Date Model / Serial / Lot Suture Steel 6 B&S19 M654g - [id number] Implanted:Qty: 8 on 04/13/2024 by Fernando Blancas MD at [facility] [address] N/A: Sternum JNJ : [employer] 12/12/2028 M654G / / [id number] Marker Coronary - [id number] Implanted:Qty: 2 on 04/13/2024 by Fernando Blancas MD [place] [facility]/A: Heart [employer] 02/11/2027 [facility] / / [id number] documented as of this encounter Advance Directives [...] Advance Directives occurred with: Patient Care Teams Stitch Bonding Machine Tender Helper Relationship Specialty Start Date End Date Carla Evans MD [address] [place] [address] PCP - General Internal Medicine 04/22/24 documented as of this encounter
--- OUTSIDE RECORDS SUMMARY | 2024-11-04 22:07 | External Medical Summary | Summary of Care ---
Author Name Unknown Organization [facility] Address [address] [facility] [place] [address] Phone [phone] Care Team Providers Care Adapted Physical Education Specialist Name Role Phone Carla Evans MD Primary Care Provider Reason for Visit * Reason Onset Date Comments Medication Question 05/08/2024 Hospital ref ills Encounter Details Date Type Department Care Team (Late st Contact Info) Description 05/08/2024 Telephone Family Practice [facility] [address] [place] [address] Carla Evans MD [address] [place] [address] Medication Question (Hospital refills) Allergies No known active allergiesdocumented as of this encounter (statuses as of 05/08/2024) Medications Medication Sig Dispensed Refills Start Date End Date Status BD Pen Needle Ju[place] U/F 32G X 4 MM (Insulin Pen Needle) Use to inject insulin 4 times per day 200 Each 12 04/17/2024 Active Contour Next Test In Vitro Strip (Glucose Blood) Check blood glucose 4 times per day 200 Strip 12 04/17/2024 Active Microlet Lancets Use to check blood glucose 4 times per day 200 Each 12 04/17/2024 Active Aspirin 81 MG Oral Tablet Chewable Take 1 Tablet by mouth in the morning. 30 Tablet 12 04/18/2024 Active Atorvastatin Calcium 80 MG Oral Tablet (Lipitor) Take 1 Tablet by mouth every afternoon. 30 Tablet 12 04/18/2024 Active Lisinopril 2.5 MG Oral Tablet (Prinivil) Take 1 Tablet by mouth in the morning. 30 Tablet 12 04/18/2024 Active Metoprolol Succinate ER 25 MG Oral Tablet Extended Release 24 Hour (toPROL XL) Take 1 Tablet by mouth in the morning. 30 Tablet 12 04/18/2024 Active traMADol HCl 50 MG Oral Tablet (Ultram) Take 1 Tablet by mouth every 6 hours as needed for severe pain 10 Tablet 04/18/2024 Active Famotidine 20 MG Oral Tablet (Pepcid) Take 1 Tablet by mouth in the morning. Take for 30 days then stop. 30 Tablet 04/18/2024 Active Warfarin Sodium 5 MG Oral Tablet (Coumadin) Take by mouth as directed by the anticoagulation clinic 30 Tablet 2 04/18/2024 Active Furosemide 40 MG Oral Tablet (Lasix) Take 1 Tablet by mouth in the morning. Take for 30 days then stop. Do not start before May 15, 2024. 30 Tablet 3 05/15/2024 Active Potassium Chloride ER 10 MEQ Oral Tablet Extended Release Take 1 Tablet by mouth in the morning. For 30 days then stop. Do not start before May 15, 2024. 30 Tablet 3 05/15/2024 Active Insulin Glargine Solostar 100 UNIT/ML Subcutaneous Solution Pen-injector (Lantus SoloStar) Inject 36 Units under the skin in the morning. 3 mL 12 04/30/2024 Active documented as of this encounter (statuses as of 05/08/2024) Active Problems Problem Noted Date Diagnosed Date 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 04/23/2024 LV dysfunction 04/05/2024 LV (left ventricular) mural thrombus with acute [place] 04/05/2024 Coronary artery disease invo lving [place] coronary artery of [place] heart with angina pectoris 04/04/2024 NSTEMI (non-ST elevated myocardial infarction) 0 04/04/2024 Type 2 diabetes mellitus wit h hemoglobin A1c goal of less than 7.0% 04/04/2024 Tobacco use 04/04/2024 HTN (hypertension) 04/04/2024 documented as of this encounter (statuses as of 05/08/2024) Resolved Problems Problem Noted Date Diagnosed Date Resolved Date Heart failure with mildly re duced ejection fraction (HFmrEF) 04/05/2024 04/06/2024 documented as of this encounter (statuses as of 05/08/2024) Immunizations Name Administration Dates Next Due Seasonal Influenza, Trivalent, (IIV3), PF, (Fluz one) [...] Recorded Sex Assigned at Not on file Gender Identity Not on file Sexual Orientation Straight 04/29/2024 12 :36 PM EDT Job Start Date Occupation Industry Not on file Not on file Not on file documented as of this encounter Functional Status Functional Status Response Date of Assess ment Are you deaf or do you have serious difficulty h earing? No 04/04/2024 Are you blind or do you have serious difficulty seeing, even when wearing glasses? No 04/04/2024 Do you have serious difficul ty walking or climbing stairs? (5 years old or older) No 04/04/2024 Do you have difficulty dress ing or bathing? (5 years old or older) No 04/04/2024 Because of a physical, menta l, or emotional condition, do you have difficulty doing errands alone such as visiting a doctor s office or shopping? (15 years old or older) No 04/04/20 24 Cognitive Status Response Date of Assessm ent Because of a physical, menta l, or emotional condition, do you have serious difficulty concentrating, remembering, or making decisions? (5 years old or older) No 04/04/2024 documented as of this encounter Miscellaneous Notes * Telephone Encounter - Jocelyne Layton PHARM Tech - 05/08/2024 4:00 PM EDT Patient calling in regarding a medication last prescribed by PCP office, transferring caller to Medication Refill Line for further assistance. Thank You, Jocelyne Layton [facility]ter [facility] ([facility] 05/08/2024, 4:00 PM documented in this encounter Plan of Treatment Upcoming Encounters Date Type Department Care Team (Late st Contact Info) Description 05/21/2024 10:30 AM EST Office Visit Cardiothoracic Surg [facility] [address] [place] [address] Fernando Blancas MD [address] [place] [address] 05/27/2024 11:10 AM EST Office Visit Pharmacy, [facility] [address] [place] [address] [facility] [address] [place] [address] 06/03/2024 1:30 PM EST Imaging Vascular Lab, [facility] II 2nd Floor, [place] [address] [place] [address] 06/03/2024 2:10 PM EST Office Visit Vascular Surgery, [facility] [address] [place] [address] Osman King MD [address] [place] [address] 06/04/2024 11:30 AM EST Office Visit Cardiology, [facility] 132 [facility] [place] [address] Lorena Jacinto CRNP 132 [facility] [place] [address] 08/14/2024 9:40 AM EST Office Visit Family [facility] [address] [place] [address] Carla Evans MD [address] [place] [address] Health Maintenance Due Date Last Done Comments Pneumococcal Vaccine: Pediatrics (0 to 5 Years) and At-Risk Patients (6 to 64 Years) (1 of 2 - PCV) 1976 Depression Screening 1982 Albumin/Creatinine Ratio 1988 Diabetic Foot Exam 1988 Hepatitis B Vaccine (1 of 3 - 19+ 3-dose series) 1989 Cologuard 2015 Colonoscopy 2015 Colorectal Cancer Screening 2015 Fecal Occult Blood Test 2015 Sigmoidoscopy 2015 Zoster Vaccines (1 of 2) 2020 COVID-19 Vaccine ( - 2023- season) 2024 07/20/2021, 11/27/2020, 10/31/2020 HbA1c 10/02/2024 04/04/2024 GFR 04/18/2025 04/18/2024, 10/2023, 04/16/2024, Additional history exists Diabetic Eye Exam 04/22/2025 04/22/2024 DTap/Tdap Vaccines (2 - Td or Tdap) 02/23/2027 02/23/2017 Influenza Vaccine (FLU shot) Completed 04/24/2024, 04/07/2018 HPV (Gardasil) Vaccine Aged Out No lo nger eligible based on patient's age to complete this topic MENINGOCOCCAL (MENACTRA/MENVEO) Aged Out No longer eligible based on patient's age to complete this topic documented as of this encounter Medical Devices Implanted Type Area Game Show Host Device Identifier Shelf Expiration Date Model / Serial / Lot Suture Steel 6 B&S19 M654g - [id number] Implanted:Qty: 8 on 04/13/2024 by Fernando Bl[place] [facility] [place]: Sternum JNJ : [employer] 12/12/2028 M654G / / [id number] Marker Coronary - [id number] Implanted:Qty: 2 on 04/13/2024 by Fernando Blancas [place] [facility] [place]/A: Heart [employer] 02/11/2027 [facility] / / [id number] documented as of this encounter Advance Directives [...] Advance Directives occurred with: Patient Care Teams Adapted Physical Education Specialist Relationship Specialty Start Date End Date Carla Evans MD 132 [facility] [place] [address] PCP - General Internal Medicine 04/22/24 documented as of this encounter
--- OUTSIDE RECORDS SUMMARY | 2024-11-04 22:07 | External Medical Summary | Summary of Care ---
Author Name Unknown Organization [facility] [address] [facility] [address] Phone [phone] Care Team Providers Care Patient Services Rep Name Role Phone Carla Evans MD Primary Care Provider Reason for Visit * Reason Onset Date Comments Medication Refill 05/12/2024 Encounter Details Date Type Department Care Team (Late st Contact Info) Description 05/12/2024 Refill Family Practice [facility] [address] [place] [address] Carla Evans MD [address] [place] [address] NSTEMI (non-ST elevated myocardial infarction) (HCC) Allergies No known active allergiesdocumented as of this encounter (statuses as of 05/18/2024) Medications Medication Sig Dispensed Refills Start Date End Date Status BD Pen Needle Ju[place] U/F 32G X 4 MM (Insulin Pen Needle) Use to inject insulin 4 times per day 200 Each 12 4 Active Microlet Lancets Use to check blood glucose 4 times per day 200 Each 12 4 Active Insulin Glargine Solostar 100 UNIT/ML Subcutaneous Solution Pen-injector (Lantus SoloStar) Inject 30 Units under the skin in the morning. 3 mL 12 4 Active Additional Information Patient not taking.Reported on 04/22/2024 Aspirin 81 MG Oral Tablet Chewable Take 1 Tablet by mouth in the morning. 30 Tablet 12 4 Active Atorvastatin Calcium 80 MG Oral Tablet (Lipitor) Take 1 Tablet by mouth every afternoon. 30 Tablet 12 4 Active Lisinopril 2.5 MG Oral Tablet (Prinivil) Take 1 Tablet by mouth in the morning. 30 Tablet 12 4 Active Metoprolol Succinate ER 25 MG Oral Tablet Extended Release 24 Hour (toPROL XL) Take 1 Tablet by mouth in the morning. 30 Tablet 12 4 Active traMADol HCl 50 MG Oral Tablet (Ultram) Take 1 Tablet by mouth every 6 hours as needed for severe pain 10 Tablet 4 Active Potassium Chloride ER 10 MEQ Oral Tablet Extended Release Take 1 Tablet by mouth in the morning. For 30 days then stop. Do not start before May 15, 2024. 30 Tablet 3 4 Active Insulin Glargine Solostar 100 UNIT/ML Subcutaneous Solution Pen-injector (Lantus SoloStar) Inject 36 Units under the skin in the morning. 3 mL 12 4 Active Aspirin 81 MG Oral Tablet ChewableIndicatio ns:NSTEMI (non-ST elevated myocardial infarction) (HCC) Take 1 Tablet by mouth in the morning. 90 Tablet 3 4 Active Atorvastatin Calcium 80 MG Oral Tablet (Lipitor)Indicati ons:NSTEMI (non-ST elevated myocardial infarction) (HCC) Take 1 Tablet by mouth every afternoon. 90 Tablet 3 4 Active BD Pen Needle [place] U/F 32G X 4 MM (Insulin Pen Needle)Indication s:Type 2 diabetes mellitus with hemoglobin A1c goal of less than 7.0% ([facility]) Use to inject insulin 4 times per day 200 Each 12 4 Active Contour Next Test In Vitro Strip (Glucose Blood)Indications :Type 2 diabetes mellitus with hemoglobin A1c goal of less than 7.0% ([facility]) Check blood glucose 4 times per day 200 Strip 12 4 Active Famotidine 20 MG Oral Tablet (Pepcid) Take 1 Tablet by mouth in the morning. Take for 30 days then stop. 90 Tablet 3 4 Active Lisinopril 2.5 MG Oral Tablet (Prinivil)Indicat ions:NSTEMI (non-ST elevated myocardial infarction) (HCC) Take 1 Tablet by mouth in the morning. 90 Tablet 3 4 Active Metoprolol Succinate ER 25 MG Oral Tablet Extended Release 24 Hour (toPROL XL)Indications:NS DUSTY (non-ST elevated myocardial infarction) (HCC) Take 1 Tablet by mouth in the morning. 90 Tablet 3 4 Active Potassium Chloride ER 10 MEQ Oral Tablet Extended Release take one tablet by mouth in the morning do not fill before 05/15/2024 30 Tablet 4 4 Active Famotidine 20 MG Oral Tablet (Pepcid) take 1 tablet by mouth on the morning 360 Tablet 4 Active Furosemide 40 MG Oral Tablet (Lasix) Take 1 Tablet by mouth in the morning. Take for 30 days then stop. Do not start before May 15, 2024. 30 Tablet 2 4 Active Warfarin Sodium 5 MG Oral Tablet (Coumadin) Take by mouth as directed by the anticoagulation clinic 30 Tablet 2 4 Active Warfarin Sodium 5 MG Oral Tablet (Coumadin) Take by mouth as directed by the anticoagulation clinic 30 Tablet 2 4 05/12/20 24 Discontinu ed(Refill) Furosemide 40 MG Oral Tablet (Lasix) Take 1 Tablet by mouth in the morning. Take for 30 days then stop. Do not start before May 15, 2024. 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 artery of [place] heart with angina pectoris 04/04/2024 NSTEMI (non-ST elevated myocardial infarction) 0 04/04/2024 Type 2 diabetes mellitus wit h hemoglobin A1c goal of less than 7.0% 04/04/2024 Tobacco use 04/04/2024 HTN (hypertension) 04/04/2024 documented as of this encounter (statuses as of 05/18/2024) Resolved Problems Problem Noted Date Diagnosed Date Resolved Date Heart failure with mildly re duced ejection fraction (HFmrEF) 04/05/2024 04/06/2024 documented as of this encounter (statuses as of 05/18/2024) Immunizations Name Administration Dates Next Due Seasonal [...] (15 years old or older) No 04/04/20 Cognitive Status Response Date of Assessm ent Because of a physical, menta l, or emotional condition, do you have serious difficulty concentrating, remembering, or making decisions? (5 years old or older) No 04/04/2024 documented as of this encounter Miscellaneous Notes * Telephone Encounter - Joselyn Guadalupe PHARM Tech - 05/18/2024 10:13 AM EST Pt calling to request pepcid and lasix. Informed pt that RX is available at their pharmacy. Pt verbalized understanding and stated they will check with their pharmacy regarding this medication. Thank you, Joselyn Guadalupe [facility] Residential Service Technician II [facility] ([facility]) 05/18/2024, 10:13 AM * Telephone Encounter - Dulce Maria Olivera [facility] - 05/12/2024 2:42 PM EDT Signed Prescriptions: Disp Refills Furosemide 40 MG Oral Tablet (Lasix) 30 Tab*2 Sig: Take 1 Tabletby mouth in the morning. Take for 30 days then stop. Do not start before May 15, 2024.Authorizing Provider: NICOLASA CLEMENTS User: NELLY NEW Warfarin Sodium 5 MG Oral Ta blet (Coumadin)30 Tab*2 Sig: Take by mouth as directed by the anticoagulation clinicAuthorizing Provider: Kuldip MESA User: NELLY NEW * Telephone Encounter - Nelly New RP - 05/12/2024 2:27 PM EDTSigned Prescriptions: Disp Refills Furosemide 40 MG Oral Tablet (Lasix) 30 Tab*2 Sig: Take 1 Tabletby mouth in the morning. Take for 30 days then stop. Do not start before May 15, 2024.Authorizing Provider: NICOLASA CLEMENTS User: NELLY NEW Warfarin Sodium 5 MG Oral Tablet (Coumadin)30 Tab*2 Sig: Take by mouth as directed by the anticoagulation clinicAuthorizing Provider: Kuldip MESA User: NELLY NEW * Telephone Encounter - Nelly New [facility] - 05/12/2024 2:27 PM EDT Patient is switching pharmacies. Reissued balance of refills on current prescription(s) to [facility] Thank you, Nelly New [facility] Clinical Pharmacist [facility] Services ([facility]) 05/12/24 2:27 PM [phone] * Telephone Encounter - Izabel Van caser - 05/12/2024 1:37 PM EDT Pt asking high priority due to being out of meds. Please reroute Rx to [facility]. Pending Prescriptions: Disp Refills Furosemide 40 MG Oral Tablet (Lasix) 30 Tab*3 Sig: Take 1 Tablet by mouth in the morning. Take for 30 days then stop. Do not start before May 15, 2024. Warfarin Sodium 5 MG Oral Tablet (Coumadi*30 Tab*2 Sig: Take by mouth as directed by the anticoagulation clinic Last Visit: 04/22/2024 (in office), Visit date not found (telemedicine) 08/14/2024 If no future appointments scheduled, and last appointment is greater than a year ago, please schedule patient for a follow-up appointment Last date the medication was ordered: 04/18/24,05/15/24 Patient Phone Numbers Labs: Lab Results Component Value Date/Time CREAT 0.7 04/18/2024 04:43 AM POTASSIUM 5.1 04/18/2024 04:43 AM POTASSIUM 4.5 04/13/2024 04:57 PM TSH 3.04 04/04/2024 10:45 PM LDL 125 04/05/2024 07:04 AM ALT 14 04/04/2024 10:45 PM HGBA1C 10.8 (H) 04/04/2024 10:45 PM documented in this encounter Plan of Treatment Upcoming Encounters Date Type Department Care Team (Late st Contact Info) Description 05/21/2024 10:30 AM EST Office Visit Cardiothoracic Surg [facility] [address] [place] [address] Fernando Blancas MD [address] [place] [address] 05/27/2024 11:10 AM EST Office Visit Pharmacy, [facility] [address] [facility] [place] [address] [facility] [address] [place] [address] 06/03/2024 1:30 PM EST Imaging Vascular Lab, [facility] II 2nd Floor, [place] [address] [facility] [place] [address] 06/03/2024 2:10 PM EST Office Visit Vascular Surgery, [address] [place] [address] Osman King MD [address] [place] [address] 06/04/2024 11:30 AM EST Office Visit Cardiology, [facility] [address] [facility] [place] [address] Lorena Jacinto CRNP [address] [facility] [place] [address] 08/14/2024 9:40 AM EST Office Visit Family Practice [facility] [address] [place] [address] Carla Evans MD [address] [place] [address] Health Maintenance Due Date Last Done Comments [...] Vaccine ( season) 2024 07/20/2021, 11/27/2020, 10/31/2020 HbA1c 10/02/2024 [...] this encounter Medical Devices Implanted Type Area Cardiac Monitor Technician Device Identifier Shelf Expiration Date Model / Serial / Lot Suture Steel 6 B&S19 M654g - [id number] Implanted:Qty: 8 on 04/13/2024 by Fernando Blancas MD at OR [facility] N/A: Sternum MAIKEL : [employer] 12/12/2028 M654G / / [id number] Marker Coronary - [id number] Implanted:Qty: 2 on 04/13/2024 by Fernando Blancas MD at OR [facility] N/A: Heart [employer] 02/11/2027 [facility] / / [id number] documented as of this encounter Visit Diagnoses Diagnosis NSTEMI (non-ST elevated myocardial infarction) (HCC) Acute myocardial infarction, subendocardial infarction, episode of care unspecified documented in this encounter Advance Directives * [...] Advance Directives occurred with: Patient Care Teams Patient Services Rep Relationship Specialty Start Date End Date Carla Evans MD [address] [facility] [place] [address] PCP - General Internal Medicine 04/22/24 documented as of this encounter
--- OUTSIDE RECORDS SUMMARY | 2024-11-04 22:07 | External Medical Summary | Summary of Care ---
Author Name Unknown Organization [facility] Address [address] [facility] [address] Phone [phone] Care Team Providers Care Corporate Accountant Name Role Phone Carla Evans MD Primary Care Provider Reason for Visit * Reason Onset Date Comments Medication Refill 05/12/2024 Encounter Details Date Type Department Care Team (Late st Contact Info) Description 05/12/2024 Refill Family Practice [facility] [address] [place] [address] Carla Evans MD [address] [place] [address] NSTEMI (non-ST elevated myocardial infarction) (HCC) Allergies No known active allergiesdocumented as of this encounter (statuses as of 05/12/2024) Medications Medication Sig Dispensed Refills Start Date [...] Tablet 3 4 Active BD Pen Needle Jauna U/F 32G X 4 MM (Insulin Pen Needle)Indication s:Type 2 diabetes mellitus with hemoglobin A1c goal of less than 7.0% ([facility]) Use to inject insulin 4 times per day 200 Each 12 4 Active Contour Next Test In Vitro Strip (Glucose Blood)Indications :Type 2 diabetes mellitus with hemoglobin A1c goal of less than 7.0% ([facility]) Check blood glucose 4 times [...] as of this encounter (statuses as of 05/12/2024) Active Problems Problem Noted Date Diagnosed Date 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 04/23/2024 LV dysfunction 04/05/2024 LV (left ventricular) mural thrombus with acute [place] 04/05/2024 Coronary artery disease invo lving [place] coronary artery of [place] heart with angina pectoris 04/04/2024 NSTEMI (non-ST elevated myocardial infarction) 0 04/04/2024 Type 2 diabetes mellitus wit h hemoglobin A1c goal of less than 7.0% 04/04/2024 Tobacco use 04/04/2024 HTN (hypertension) 04/04/2024 documented as of this encounter (statuses as of 05/12/2024) Resolved Problems Problem Noted Date Diagnosed Date Resolved Date Heart failure with mildly re duced ejection fraction (HFmrEF) 04/05/2024 04/06/2024 documented as of this encounter (statuses as of 05/12/2024) Immunizations Name Administration Dates Next Due Seasonal [...] encounter Miscellaneous Notes * Telephone Encounter - Dulce Maria Olivera [facility] - 05/12/2024 2:42 PM EDT Signed [...] Telephone Encounter - Nelly New [facility] - 05/12/2024 2:27 PM EDTSigned Prescriptions: Disp Refills Furosemide 40 MG Oral Tablet (Lasix) 30 Tab*2 Sig: Take 1 Tablet by mouth in the morning. Take for 30 days then stop. Do not start before May 15, 2024.Authorizing Provider: NICOLASA CLEMENTS User: NELLY NEW Warfarin Sodium 5 MG Oral Tablet (Coumadin)30 Tab*2 Sig: Take by mouth as directed by the anticoagulation clinicAuthorizing Provider: Kuldip MESA User: NELLY NEW * Telephone Encounter - Nelly New RP - 05/12/2024 2:27 PM EDT Patient is switching pharmacies. Reissued balance of refills on current prescription(s) to [facility] Thank you, Nelly New [facility] Clinical Pharmacist [facility]acy Services ([facility]) 05/12/24 2:27 PM [phone] * Telephone Encounter - Izabel Van PHARM Tech - 05/12/2024 1:37 PM EDT Pt asking high priority due to being out of meds. Please reroute Rx to [facility]. Pending Prescriptions: Disp Refills Furosemide 40 [...] 10:30 AM EST Office Visit Cardiothoracic Surg [facility] [place] [address] [place] [address] Fernando Blancas MD [address] [place] [address] 05/27/2024 11:10 AM EST Office Visit Pharmacy, [facility] [address] [facility] [place] [address] [facility] [address] [place] [address] 06/03/2024 1:30 PM EST Imaging Vascular Lab, [facility] II 2nd Floor, [place] [address] [facility] [place] [address] 06/03/2024 2:10 PM EST Office Visit Vascular Surgery, [facility] [address] [facility] [place] [address] Osman King MD [address] [place] [address] 06/04/2024 11:30 AM EST Office Visit Cardiology, [facility] [address] [facility] [place] [address] Lorena Jacinto CRNP [address] [facility] [place] [address] 08/14/2024 9:40 AM EST Office Visit Family Practice [facility] [address] [facility] [place] [address] Carla Evans MD [address] [place] [address] Health Maintenance Due Date Last Done Comments [...] this encounter Medical Devices Implanted Type Area Supervisor Train Operations Device Identifier Shelf Expiration Date Model / Serial / Lot Suture Steel 6 B&S19 M654g - [id number] Implanted:Qty: 8 on 04/13/2024 by Fernando Blanc[place] [facility] [place]A: Sternum JN[place] : [employer] 12/12/2028 M654G / / [id number] Marker Coronary - [id number] Implanted:Qty: 2 on 04/13/2024 by Fernando Blancas [place] [facility] N/A: Heart [employer] 02/11/2027 [facility] / / [id number] documented as of this encounter Visit Diagnoses [...] Advance Directives occurred with: Patient Care Teams Corporate Accountant Relationship Specialty Start Date End Date Carla Evans MD [address] [place] [address] PCP - General Internal Medicine 04/22/24 documented as of this encounter
--- OUTSIDE RECORDS SUMMARY | 2024-11-04 22:07 | External Medical Summary | Summary of Care ---
Author Name Unknown Organization [facility] Address [address] [facility] [place] [address] Phone [phone] Care Team Providers Care Fish Salter Name Role Phone Carla Evans MD Primary Care Provider Reason for Visit * Reason Comments Dosage Adjustment In Person (Anticoag Cl inic) Diabetes Follow-Up Encounter Details Date Type Department Care Team (Late st Contact Info) Description 05/27/2024 11:10 AM EST Office Visit Pharmacy, [facility] [address] [facility] [place] [address] [facility] [address] [facility] [place] [address] Type 2 diabetes mellitus with hemoglobin A1c goal of less than 7.0% ([facility])* Allergies No known active allergiesdocumented as of this encounter (statuses as of 05/27/2024) Medications BD Pen Needle Juana U/F 32G [...] goal of less than 7.0% ([facility]) Check blood glucose 4 times [...] morning. 15 mL 12 05/27/20 24 Active Insulin Glargine Solostar 100 UNIT/ML Subcutaneous Solution Pen-injector (Lantus SoloStar) Inject 30 Units under the skin in the morning. 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 04/23/2024 LV dysfunction 04/05/2024 LV (left ventricular) mural thrombus with acute ID 04/05/2024 Coronary artery disease invo lving [place] coronary artery of [place] heart with angina pectoris 04/04/2024 NSTEMI (non-ST elevated myocardial infarction) 0 04/04/2024 Type 2 diabetes mellitus wit h hemoglobin A1c goal of less than 7.0% 04/04/2024 Tobacco use 04/04/2024 HTN (hypertension) 04/04/2024 documented as of this encounter (statuses as of 05/27/2024) Resolved Problems Problem Noted Date Diagnosed Date Resolved Date Heart failure with mildly re duced ejection fraction (HFmrEF) 04/05/2024 04/06/2024 documented as of this encounter (statuses as of 05/27/2024) Immunizations Name Administration Dates Next Due HEPATITIS [...] documented in this encounter Progress Notes * Caryn Abdul, [facility] - 05/27/2024 10:42 AM EST Medication Therapy Disease Management Clinic - Diabetes Management Progress Note Isael Jackman, identified by name and date of , is a 54 year old male being seen for diabetes management/education. Patient presents for return diabetic visit. DIABETES: Current diabetic medications: STOP insulin aspart Insulin glargine 36 units nightly Serum creatinine: 0.7 mg/dL 04/18/24 0443 Estimated creatinine clearance: 149.3 mL/min Medication Injection Site: Thigh Lifestyle: Diet: unchanged Glucose Review/SMBG: Readings obtained from patient documented BG logbook Pre am Post am Pre Lunch Post Lunch Pre pm Post pm HS 3am 155 157 159 161 152 153 155 159 162 103 165 170 159 160 162 163 158 159 163 167 161 164 167 168 163 167 171 174 167 169 167 170 168 169 171 172 167 169 170 173 168 173 172 177 159 171 170 171 Average 162 #DIV/0! 160 #DIV/0! 166 #DIV/0! 169 #DIV/0! Hi 168 0 173 0 172 0 177 0 Lo 152 0 103 0 [address] 161[address]9 0 163.8 0 166.5 0 168.9 0 Range 16 0 70 0 17 0 18 0 Hypoglycemia: Does your blood sugar go below 70 mg/dL? No Hyperglycemia symptoms present: none Recent Labs Units 04/04/24 2245 HEMOGLOBIN A1C - [facility] % 10.8* Recent Labs Units 04/18/24 0443 04/17/24 0442 04/16/24 0610 ESTIMATED GLOMERULAR FILTRATION RATE - [facility] mL/min >90 >90 >90 CREATININE - [facility] mg/dL 0.7 0.7 0.5* HYPERTENSION: Patient on ACEi/ARB: yes BP Readings from Last 3 Encounters: 05/21/24 118/74 04/24/24 100/56 04/22/24 96/58 Blood pressure at goal: yes HYPERLIPIDEMIA: Recent Labs Units 04/05/24 0704 LDL CHOLESTEROL (CALCULATED) - [facility] mg/dL 125 Does patient have clinical ASCVD? Yes, is patient LDL less than 55 mg/dL? No: Recent statin start, needs updated lipid panel HEALTH MAINTENANCE REVIEW: Health Maintenance Due Topic Date Due Pneumococcal Vaccine: Pediatrics (0 to 5 Years) and At-Risk Patients (6 to 64 Years) (1 of 2 - PCV)Never done Depression Screening Never done Albumin/Creatinine Ratio Never done Diabetic Foot Exam Never done Hepatitis B Vaccine (1 of 3 - 19+ 3-dose series) Never done Colorectal Cancer Screening Never done Zoster Vaccines (1 of 2) Never done COVID-19 Vaccine (2023- season) 2024 ASSESSMENT & PLAN: BG Readings - Blood sugars controlled. BG values much improved since last visit. Medications - Reviewed current regimen, patient is adherent to regimen. Recommending titration to lantus at this time. Diet, Exercise, Lifestyle - No significant lifestyle changes since last visit. Discussed with patient. Patient is agreeable to SMBG 4 time(s) daily. Patient aware to contact clinic if any hypoglycemia before next visit. MEDICATION CHANGES: yes, see below; preferred pharmacy: [facility] ([place]) Diabetic Medications: STOP insulin aspart Insulin glargine 36 units nightly HEALTH MAINTENANCE INTERVENTIONS: Labs: Up to Date Immunizations: Facilitated Administration Of: Pneumonia and HepB series Foot Exam: Up to Date Eye Exam: Up to Date Annual Wellness Visit: N/A FOLLOW UP: Return to clinic in 8 weeks 07/22/2024 I spent a total of 20-29 minutes (exact time 22 mins) on the date of service in preparation, delivery, and documentation of the care provided to Isael Jackman excluding any time spent in the performance of separately billed services. Caryn Abdul [facility] Clinical Pharmacist - Golf Instructor Medication Therapy Management Clinic 05/27/2024, 10:42 AM documented in this encounter Plan of Treatment Upcoming Encounters Date Type Department Care Team (Late st Contact Info) Description 05/29/2024 11:00 AM EST Nutrition Services Nutrition, [facility] 132 [facility] [place] [address] Keisha Fortune RDN 132 [facility] [place] [address] 06/03/2024 1:30 PM EST Imaging Vascular Lab, [facility] II 2nd Floor, [place] [address] [facility] [place] [address] 06/03/2024 2:10 PM EST Office Visit Vascular Surgery, [facility] [address] [facility] [place] [address] [facility] [address] [facility] [address] 06/04/2024 11:30 AM EST Office Visit Cardiology, [facility] [address] [facility] [place] [address] Lorena Jacinto CRNP [address] [place] [address] 07/22/2024 9:20 AM EST Office Visit Pharmacy, [facility] [address] [place] [address] [facility] [address] [place] [address] 08/14/2024 9:40 AM EST Office Visit Family Practice [facility] [address] [place] [address] Carla Evans MD [address] [place] [address] Health Maintenance Due Date Last Done Comments [...] this encounter Medical Devices Implanted Type Area Parachute Accessories Attacher Device Identifier Shelf Expiration Date Model / Serial / Lot Suture Steel 6 B&S19 M654g - [id number] Implanted:Qty: 8 on 04/13/2024 by Fernando Blancas MD at OR [facility] N/A: Sternum JNJ : [employer] 12/12/2028 M654G / / [id number] Marker Coronary - [id number] Implanted:Qty: 2 on 04/13/2024 by Fernando Blancas MD at OR [facility] N/A: Heart [employer] 02/11/2027 [facility] / / [id number] documented as of this encounter Visit Diagnoses Diagnosis Type 2 diabetes mellitus with hemoglobin A1c goal of less than 7.0% ([facility])- Primary documented in this encounter Advance Directives [...] Advance Directives occurred with: Patient Care Teams Fish Salter Relationship Specialty Start Date End Date Carla Evans MD [address] [facility] [place] [address] PCP - General Internal Medicine 04/22/24 documented as of this encounter
--- OUTSIDE RECORDS SUMMARY | 2024-11-04 22:07 | External Medical Summary | Summary of Care ---
Author Name Unknown Organization [facility] Address [address] [facility] [place] [address] Phone [phone] Care Team Providers Care Glass Wool Blanket Machine Feeder Name Role Phone Carla Evans MD Primary Care Provider Encounter Details Date Type Department Care Team (Late st Contact Info) Description 05/18/2024 Population Health External Data Unspecified Department Allergies No known active allergiesdocumented as of this encounter (statuses as of 05/18/2024) Medications Medication Sig Dispensed Refills Start Date End Date Status BD Pen Needle [place] U/F 32G X 4 MM (Insulin Pen Needle) Use to inject insulin 4 times per day 200 Each 12 04/17/2024 Active Microlet Lancets Use to check blood glucose 4 times per day 200 Each 12 04/17/2024 Active Insulin Glargine Solostar 100 UNIT/ML Subcutaneous Solution Pen-injector (Lantus SoloStar) Inject 30 Units under the skin in the morning. 3 mL 12 04/17/2024 Active Additional Information Patient not taking.Reported on [...] for severe pain 10 Tablet 04/18/2024 Active Potassium Chloride ER 10 MEQ Oral Tablet Extended Release Take 1 Tablet by mouth in the morning. For 30 days then stop. Do not start before May 15, 2024. 30 Tablet 3 05/15/2024 Active Insulin Glargine Solostar 100 UNIT/ML Subcutaneous Solution Pen-injector (Lantus SoloStar) Inject 36 Units under the skin in the morning. 3 mL 12 04/30/2024 Active Aspirin 81 MG Oral Tablet ChewableIndication s:NSTEMI (non-ST elevated myocardial infarction) (HCC) Take 1 Tablet by mouth in the morning. 90 Tablet 3 05/08/2024 Active Atorvastatin Calcium 80 MG Oral Tablet (Lipitor)Indicatio ns:NSTEMI (non-ST elevated myocardial infarction) (HCC) Take 1 Tablet by mouth every afternoon. 90 Tablet 3 05/08/2024 Active BD Pen Needle [place] U/F 32G X 4 MM (Insulin Pen Needle)Indications :Type 2 diabetes mellitus with hemoglobin A1c goal of less than 7.0% ([facility]) Use to inject insulin 4 times per day 200 Each 12 05/08/2024 Active Contour Next Test In Vitro Strip (Glucose Blood)Indications: Type 2 diabetes mellitus with hemoglobin A1c goal of less than 7.0% ([facility]) Check blood glucose 4 times per day 200 Strip 12 05/08/2024 Active Famotidine 20 MG Oral Tablet (Pepcid) Take 1 Tablet by mouth in the morning. Take for 30 days then stop. 90 Tablet 3 05/08/2024 Active Lisinopril 2.5 MG Oral Tablet (Prinivil)Indicati ons:NSTEMI (non-ST elevated myocardial infarction) (HCC) Take 1 Tablet by mouth in the morning. 90 Tablet 3 05/08/2024 Active Metoprolol Succinate ER 25 MG Oral Tablet Extended Release 24 Hour (toPROL XL)Indications:NST CHARLI (non-ST elevated myocardial infarction) (HCC) Take 1 Tablet by mouth in the morning. 90 Tablet 3 05/08/2024 Active Potassium Chloride ER 10 MEQ Oral Tablet Extended Release take one tablet by mouth in the morning do not fill before 05/15/2024 30 Tablet 4 04/24/2024 Active Famotidine 20 MG Oral Tablet (Pepcid) take 1 tablet by mouth on the morning 360 Tablet 05/08/2024 Active Furosemide 40 MG Oral Tablet (Lasix) Take 1 Tablet by mouth in the morning. Take for 30 days then stop. Do not start before May 15, 2024. 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 04/23/2024 LV dysfunction 04/05/2024 LV (left ventricular) mural thrombus with acute MD 04/05/2024 Coronary artery disease invo lving [place] coronary artery of [place] heart with angina pectoris 04/04/2024 NSTEMI [...] No 04/04/2024 documented as of this encounter Plan of Treatment Upcoming Encounters Date Type Department Care Team (Late st Contact Info) Description 05/21/2024 10:30 AM EST Office Visit Cardiothoracic Surg [facility] [address] [place] [address] Fernando Blancas MD [address] [place] [address] 05/27/2024 11:10 AM EST Office Visit Pharmacy, [facility] 132 [facility] [place] [address] [address] [address] 06/03/2024 1:30 PM EST Imaging Vascular Lab, [facility] 2nd [facility] 132 [facility] [place] [address] 06/03/2024 2:10 PM EST Office Visit Vascular Surgery, [facility] 132 [facility] [place] [address] Osman King MD [address] [facility] [place] [address] 06/04/2024 11:30 AM EST Office Visit Cardiology, [facility] 132 [facility] [place] [address] Lorena Jacinto CRNP 132 [place] [address] 08/14/2024 9:40 AM EST Office Visit Family Practice [facility] 132 [facility] [place] [address] Carla Evans MD 132 [place] [address] Health Maintenance Due Date Last Done Comments [...] 10/31/2020 HbA1c 10/02/2024 04/04/2024 GFR 04/18/2025 04/18/2024, 10/0 [...] this encounter Medical Devices Implanted Type Area Well Drill Operator Helper Cable Tool Device Identifier Shelf Expiration Date Model / Serial / Lot Suture Steel 6 B&S19 M654g - [id number] Implanted:Qty: 8 on 04/13/2024 by Fernando Blancas MD at OR [facility] N/A: Sternum JNJ : [employer] 12/12/2028 M654G / / [id number] Marker Coronary - [id number] Implanted:Qty: 2 on 04/13/2024 by Fernando Blancas MD at OR [facility] N/A: Heart [employer] 02/11/2027 [facility] / / [id number] documented as of this encounter Advance Directives [...] Advance Directives occurred with: Patient Care Teams Glass Wool Blanket Machine Feeder Relationship Specialty Start Date End Date Carla Evans MD 132 [place] [address] PCP - General Internal Medicine 04/22/24 documented as of this encounter
--- OUTSIDE RECORDS SUMMARY | 2024-11-04 22:07 | External Medical Summary | Summary of Care ---
Author Name Unknown Organization [facility] Address [address] [facility] [place] [address] Phone [phone] Care Team Providers Care Biological Technical Officer Name Role Phone Carla Evans MD Primary Care Provider Encounter Details Date Type Department Care Team (Late st Contact Info) Description 05/15/2024 Population Health External Data Unspecified Department Allergies No known active allergiesdocumented as of this encounter (statuses as of 05/15/2024) Medications Medication Sig Dispensed Refills Start Date [...] hemoglobin A1c goal of less than 7.0% ([facility]) Use to inject insulin 4 times per day 200 Each 12 05/08/2024 Active Contour Next Test In Vitro Strip (Glucose Blood)Indications: Type 2 diabetes mellitus with hemoglobin A1c goal of less than 7.0% ([facility]) Check blood glucose 4 times [...] as of this encounter (statuses as of 05/15/2024) Active Problems Problem Noted Date Diagnosed Date 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 04/23/2024 LV dysfunction 04/05/2024 LV (left ventricular) mural thrombus with acute MT 04/05/2024 Coronary artery disease invo lving [place] coronary artery of [place] heart with angina pectoris 04/04/2024 NSTEMI (non-ST elevated myocardial infarction) 0 04/04/2024 Type 2 diabetes mellitus wit h hemoglobin A1c goal of less than 7.0% 04/04/2024 Tobacco use 04/04/2024 HTN (hypertension) 04/04/2024 documented as of this encounter (statuses as of 05/15/2024) Resolved Problems Problem Noted Date Diagnosed Date Resolved Date Heart failure with mildly re duced ejection fraction (HFmrEF) 04/05/2024 04/06/2024 documented as of this encounter (statuses as of 05/15/2024) Immunizations Name Administration Dates Next Due Seasonal [...] 10:30 AM EST Office Visit Cardiothoracic Surg [facility] [address] [place] [address] Fernando Blancas MD [address] [place] [address] 05/27/2024 11:10 AM EST Office Visit Pharmacy, [facility] 132 [facility] [place] [address] [address] [address] 06/03/2024 1:30 PM EST Imaging Vascular Lab, [facility] [address] [facility] 132 [facility] [place] [address] 06/03/2024 2:10 PM EST Office Visit Vascular Surgery, [facility] 132 [facility] [place] [address] Osman King MD [address] [facility] [place] [address] 06/04/2024 11:30 AM EST Office Visit Cardiology, [facility] 132 [facility] [place] [address] Lorena Jacinto CRNP 132 [place] [address] 08/14/2024 9:40 AM EST Office Visit Family Practice [facility] 132 [facility] [place] [address] Carla Evans MD 132 [place] [address] Health Maintenance Due Date Last Done Comments [...] this encounter Medical Devices Implanted Type Area Client Integration Manager Device Identifier Shelf Expiration Date Model / Serial / Lot Suture Steel 6 B&S19 M654g - [id number] Implanted:Qty: 8 on 04/13/2024 by Fernando Blancas MD at OR [facility] N/A: Sternum JNJ : [employer] 12/12/2028 M654G / / [id number] Marker Coronary - [id number] Implanted:Qty: 2 on 04/13/2024 by Fernando Blancas MD at OR [facility] N/A: Heart [employer] 02/11/2027 [facility] / / [id number] documented as of this encounter Advance Directives [...] Advance Directives occurred with: Patient Care Teams Biological Technical Officer Relationship Specialty Start Date End Date Carla Evans MD [address] [place] [address] PCP - General Internal Medicine 04/22/24 documented as of this encounter
--- OUTSIDE RECORDS SUMMARY | 2024-11-04 22:07 | External Medical Summary | Summary of Care ---
Author Name Unknown Organization [facility] Address [address] [place] [address] Phone [phone] Care Team Providers Care Tank Builder And Erector Name Role Phone Carla Evans MD Primary Care Provider Reason for Referral * Evaluate & Treat - Unlimited Visits (Within 30 days (routine)) - Pending Review Specialty Diagnoses / Procedures Referred By Estelle orourke Referred To Contact Optometry Diagnoses Screening for diabetic retinopathy Carla Evans MD [address] [address] Referral ID Status Reason Start Date Expiration Date Visits Requested Visits Authorized [id number] Pending Review Specialty Services Required 05/18/[phone] Question Answer Referral Priority Within 30 days (routine) Where should this appointment be scheduled? External Referring for: Optometry Conditions Optometry Conditions Other Optometry (comment) Reason for Visit * Reason Onset Date Comments Information 05/18/2024 DM eye Encounter Details Date Type Department Care Team (Late st Contact Info) Description 05/18/2024 Telephone Family Practice [facility] 132 [place] [address] Carla Evans MD [address] [place] [address] Information (DM eye) Allergies No known active allergiesdocumented as of [...] hemoglobin A1c goal of less than 7.0% ([facility]) Use to inject insulin 4 times per day 200 Each 12 05/08/2024 Active Contour Next Test In Vitro Strip (Glucose Blood)Indications: Type 2 diabetes mellitus with hemoglobin A1c goal of less than 7.0% ([facility]) Check blood glucose 4 times per day 200 Strip 12 05/08/2024 Active Famotidine 20 MG Oral Tablet (Pepcid) Take 1 Tablet by mouth in the morning. Take for 30 days then stop. 90 Tablet 3 05/08/2024 Active Lisinopril 2.5 MG Oral Tablet (Prinivil)Indicati ons:NSTEMI (non-ST elevated myocardial infarction) ([facility]) Take 1 Tablet by mouth in the morning. 90 Tablet 3 05/08/2024 Active Metoprolol Succinate ER 25 MG Oral Tablet Extended Release 24 Hour (toPROL XL)Indications:NST CHARLI (non-ST elevated myocardial infarction) ([facility]) Take 1 Tablet by mouth in the [...] LV (left ventricular) mural thrombus with acute [place] 04/05/2024 Coronary artery disease invo lving [place] coronary artery of [place] heart with angina pectoris 04/04/2024 NSTEMI (non-ST [...] encounter Miscellaneous Notes * Telephone Encounter - Arlet Keating LPN - 05/18/2024 11:19 AM EST Patient with a positive Diabetic Retinopathy scan OR uninterpretable Diabetic Retinopathy exam. There is mild retinopathy in both eyes Outreach action taken: Patient will Schedule with Outside Provider referral generated. See encounter 04/22. Arlet Keating LPN documented in this encounter Plan of Treatment Upcoming Encounters Date Type Department Care Team (Late st Contact Info) Description 05/21/2024 10:30 AM EST Office [facility] [address] [place] [address] Fernando Blancas MD [address] [place] [address] 05/27/2024 11:10 AM EST Office Visit Pharmacy, [address] [place] [address] [facility] [address] [place] [address] 06/03/2024 1:30 PM EST Imaging Vascular Lab, [facility] II 2nd Floor, [place] 132 [facility] [place] [address] 06/03/2024 2:10 PM EST Office Visit Vascular Surgery, [facility] 132 [facility] [place] [address] Osman King MD [address] [place] [address] 06/04/2024 11:30 AM EST Office Visit Cardiology, [facility] [address] [place] [address] Lorena Jacinto CRNP [address] [place] [address] 08/14/2024 9:40 AM EST Office Visit Family Practice [facility] [address] [place] [address] Carla Evans MD [address] [place] [address] Scheduled Referrals Name Type Priority Associated Diagnoses Orde r Schedule ADULT/PEDS OPHTHALMOLOGY/OPTOM ETRY REFERRAL OP Referral Within 30 days (routine) Screening for diabetic retinopathy Ordered: 05/18/2024 Health Maintenance Due Date Last Done Comments [...] 10/31/2020 HbA1c 10/02/2024 04/04/2024 GFR 04/18/2025 04/18/2024, 1010/2023, [...] this encounter Medical Devices Implanted Type Area Earth Science Technical Officer Device Identifier Shelf Expiration Date Model / Serial / Lot Suture Steel 6 B&S19 M654g - [id number] Implanted:Qty: 8 on 04/13/2024 by Fernando Blancas MD at OR [facility] N/A: Sternum JNJ : [employer] 12/12/2028 M654G / / [id number] Marker Coronary - [id number] Implanted:Qty: 2 on 04/13/2024 by Fernando Blancas MD at OR [facility] N/A: Heart [employer] 02/11/2027 [facility] / / [id number] documented as of this encounter Visit Diagnoses Diagnosis Screening for diabetic retinopathy- Primary Screening for other eye conditions documented in this encounter Advance Directives * [...] Advance Directives occurred with: Patient Care Teams Tank Builder And Erector Relationship Specialty Start Date End Date Carla Evans MD [address] [place] [address] [place] [address] PCP - General Internal Medicine 04/22/24 documented as of this encounter
--- OUTSIDE RECORDS SUMMARY | 2024-11-04 22:07 | External Medical Summary | Summary of Care ---
Author Name Unknown Organization [facility] Address [address] [place] [address] Phone [phone] Care Team Providers Care Tankage Supervisor Name Role Phone Carla Evans MD Primary Care Provider Reason for Visit * Reason Comments Follow Up Hospital Follow-Up Encounter Details Date Type Department Care Team (Late st Contact Info) Description 05/21/2024 10:30 AM EST Office Visit Cardiothoracic Surg [facility] [address] [place] [address] Fernando Blancas MD [address], [place] [id number] S/P CABG x 3* Allergies No known active allergiesdocumented as of this encounter (statuses as of 05/21/2024) Medications Medication Sig Dispensed Refills Start Date [...] 4 Active Aspirin 81 MG Oral Tablet Chewable [...] for severe pain 10 Tablet 4 Active Contour Next Test In Vitro Strip (Glucose Blood)Indications :Type 2 diabetes mellitus with hemoglobin A1c goal of less than 7.0% ([facility]) Check blood glucose 4 times per day 200 Strip 12 4 Active Potassium Chloride ER 10 MEQ [...] anticoagulation clinic 30 Tablet 2 4 Active Potassium Chloride ER 10 MEQ Oral Tablet Extended Release Take 1 Tablet by mouth in the morning. For 30 days then stop. Do not start before May 15, 2024. 30 Tablet 3 4 05/21/20 24 Discontinu ed(Medicat ion List Clean Up) Insulin Glargine Solostar 100 UNIT/ML Subcutaneous Solution Pen-injector (Lantus SoloStar) Inject 36 Units under the skin in the morning. 3 mL 12 4 05/21/20 24 Discontinu ed(Medicat ion List Clean Up) Aspirin 81 MG Oral Tablet ChewableIndicatio ns:NSTEMI (non-ST elevated myocardial infarction) ([facility]) Take 1 Tablet by mouth in the morning. 90 Tablet 3 4 05/21/20 24 Discontinu ed(Medicat ion List Clean Up) Atorvastatin Calcium 80 MG Oral Tablet (Lipitor)Indicati ons:NSTEMI (non-ST elevated myocardial infarction) (HCC) Take 1 Tablet by mouth every afternoon. 90 Tablet 3 4 05/21/20 24 Discontinu ed(Medicat ion List Clean Up) BD Pen Needle Juana U/F 32G X 4 MM (Insulin Pen Needle)Indication s:Type 2 diabetes mellitus with hemoglobin A1c goal of less than 7.0% (HCC) Use to inject insulin 4 times per day 200 Each 12 4 05/21/20 24 Discontinu ed(Medicat ion List Clean Up) Famotidine 20 MG Oral Tablet (Pepcid) Take 1 Tablet by mouth in the morning. Take for 30 days then stop. 90 Tablet 3 4 05/21/20 24 Discontinu ed(Medicat ion List Clean Up) Lisinopril 2.5 MG Oral Tablet (Prinivil)Indicat ions:NSTEMI (non-ST elevated myocardial infarction) (HCC) Take 1 Tablet by mouth in the morning. 90 Tablet 3 4 05/21/20 24 Discontinu ed(Medicat ion List Clean Up) Metoprolol Succinate ER 25 MG Oral Tablet Extended Release 24 Hour (toPROL XL)Indications:NS DUSTY (non-ST elevated myocardial infarction) ([facility]) Take 1 Tablet by mouth in the morning. 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 04/23/2024 LV dysfunction 04/05/2024 LV (left ventricular) mural thrombus with acute DC 04/05/2024 Coronary artery disease invo lving quileute coronary artery of quileute heart with angina pectoris 04/04/2024 NSTEMI (non-ST elevated myocardial infarction) 0 04/04/2024 Type 2 diabetes mellitus wit h hemoglobin A1c goal of less than 7.0% 04/04/2024 Tobacco use 04/04/2024 HTN (hypertension) 04/04/2024 documented as of this encounter (statuses as of 05/21/2024) Resolved Problems Problem Noted Date Diagnosed Date Resolved Date Heart failure with mildly re duced ejection fraction (HFmrEF) 04/05/2024 04/06/2024 documented as of this encounter (statuses as of 05/21/2024) Immunizations Name Administration Dates Next Due Seasonal [...] on file documented as of this encounter Last Filed Vital Signs Vital Sign Reading Time Taken Comments Blood Pressure 118/74 05/21/2024 10:14 AM EST Pulse 86 05/21/2024 10:14 AM EST Temperature - - Respiratory Rate - - Oxygen Saturation 98% 05/21/2024 10: 14 AM EST Inhaled Oxygen Concentration - - Weight 109.2 kg (240 lb 11.2 oz) 2023 10:14 AM EST Height 177.8 cm (5' 10") 05/21/2024 10: 14 AM EST Body Mass Index 34.54 05/21/2024 10:14 AM EST documented in this encounter Functional Status Functional Status Response [...] No 04/04/2024 documented as of this encounter Progress Notes * Fernando Blancas MD - 05/21/2024 11:10 AM EST ATTENDING STAFF I have seen and examined the patient. Doing well s/p CABG following acute coronary syndrome. On warfarin for LV thrombus. Pain is minimal at this point, breathing is good. Lungs clear, RRR, sternal wound healing well. Saphenous vein harvest sites healing well. We discussed that revascularization is a palliative procedure and atherosclerosis is likely to continue that puts the patient at risk for adverse cardiovascular outcomes, including myocardial infarction and graft thrombosis. I stressed the importance of aspirin and statin medications in reducing that risk, as well as remaining alert to change in symptoms like chest discomfort or dyspnea with exertion. The patient expressed understanding. The patient has cardiology follow up in [facility] and can see us as needed, but was encouraged to call us with any concerns. Fernando Blancas M.D. Associate, Cardiac Surgery [facility] [address] [place] [id number] Office [phone] * Hemant Tafoya PA-C - 05/21/2024 10:30 AM EST Post-Op Visit 05/21/2024 1030 Pre charting done by Hemant Tafoya PA-C in efficiency of seeing patient and updated by VIC Trinh is a 54 year old male s/p .Operations & Procedures: 1. CABG x 3 (TEMPLETON-LAD, Ao-obtuse marginal, Ao-PDA using reversed saphenous vein) 2. Endoscopic saphenous vein harvest Complications: none significant .Discharge date: 04/18/2024 Discharge destination: home EF: 40% PCP visit date: Y, no changes Cardiology visit date: P, ED/Admission visit: No Social History Tobacco Use Smoking status: Former Types: Cigarettes Smokeless tobacco: Never Vaping Use Vaping status: Never Used Substance Use Topics Alcohol use: Never Drug use: Never Social History Substance and Sexual Activity Drug Use Never Walking ok,some difficulty with sleeping yet Some para sternal discomfort On asa and coumadin for LV thrombus Cardiac Symptoms: no angina and no dyspnea Physical Exam: Vitals: BP 118/74 (BP Site: Left Arm, BP Position: Sitting, BP Cuff Size: Regular) | Pulse 86 | Ht 1.778 m (5' 10") | Wt 109.2 kg (240 lb 11.2 oz) | SpO2 98% | BMI 34.54 kg/m² | BSA 2.32 m² Cardiac: regular rate and rhythm Lungs: Lungs are clear to auscultation. Edema: no edema present Incisions: healing well and sternum secure Few scabs over CT sites Current Outpatient Medications Medication Sig Dispense Refill BD Pen Needle Juana U/F 32G X 4 MM (Insulin Pen Needle) Use to inject insulin 4 times per day 200 Each 12 Microlet Lancets Use to check blood glucose 4 times per day 200 Each 12 Insulin Glargine Solostar 100 UNIT/ML Subcutaneous Solution Pen-injector (Lantus SoloStar) Inject 30 Units under the skin in the morning. 3 mL 12 Aspirin 81 MG Oral Tablet Chewable Take 1 Tablet by mouth in the morning. 30 Tablet 12 Atorvastatin Calcium 80 MG Oral Tablet (Lipitor) Take 1 Tablet by mouth every afternoon. 30 Tablet 12 Lisinopril 2.5 MG Oral Tablet (Prinivil) Take 1 Tablet by mouth in the morning. 30 Tablet 12 Metoprolol Succinate ER 25 MG Oral Tablet Extended Release 24 Hour (toPROL XL) Take 1 Tablet by mouth in the morning. 30 Tablet 12 traMADol HCl 50 MG Oral Tablet (Ultram) Take 1 Tablet by mouth every 6 hours as needed for severe pain 10 Tablet 0 Contour Next Test In Vitro Strip (Glucose Blood) Check blood glucose 4 times per day 200 Strip 12 Potassium Chloride ER 10 MEQ Oral Tablet Extended Release take one tablet by mouth in the morning do not fill before 05/15/2024 30 Tablet 4 Famotidine 20 MG Oral Tablet (Pepcid) take 1 tablet by mouth on the morning 360 Tablet 0 Furosemide 40 MG Oral Tablet (Lasix) Take 1 Tablet by mouth in the morning. Take for 30 days then stop. Do not start before May 15, 2024. 30 Tablet 2 Warfarin Sodium 5 MG Oral Tablet (Coumadin) Take by mouth as directed by the anticoagulation [id number] Tablet 2 No current facility-administered medications for this visit. Assessment/Plan: doing well Medications reviewed Lifting restrictions and sternal precautions reviewed. Enforce restrictions for full eight weeks from hospital discharge date Can drive May start rehab Lasix,potassium and coumadin per cardiology RTC as needed Hemant Tafoya PA-C 05/21/2024 Cardiothoracic Surg [facility] [address] [facility] [address] documented in this encounter Plan of Treatment Upcoming Encounters Date Type Department Care Team (Late st Contact Info) Description 05/27/2024 11:10 AM EST Office Visit Pharmacy, [address] [place] [address] [facility] [address] [place] [address] 06/03/2024 1:30 PM EST Imaging Vascular Lab, [facility] II 2nd Floor, [address] [place] [address] 06/03/2024 2:10 PM EST Office Visit Vascular Surgery, [address] [place] [address] Osman King MD [address] [place], [place] [id number] 06/04/2024 11:30 AM EST Office Visit Cardiology, [facility] [address] [place] [address] Lorena Jacinto CRNP [address] [place] [address] 08/14/2024 9:40 AM EST Office Visit Family Practice [facility] [address] [place] [address] Carla Evans MD [address] [place] [address] Health Maintenance Due Date Last Done Comments [...] Vaccines (1 of 2) 2020 COVID-19 Vaccine (4 - 2023- season) 2024 07/20/2021, 11/27/2020, 10/31/2020 [...] this encounter Medical Devices Implanted Type Area Manager Education Device Identifier Shelf Expiration Date Model / Serial / Lot Suture Steel 6 B&S19 M654g - [id number] Implanted:Qty: 8 on 04/13/2024 by Fernando Blancas [place] [facility] [place]: Sternum JN[place] : [employer] 12/12/2028 [id number] / / [id number] Marker Coronary - [id number] Implanted:Qty: 2 on 04/13/2024 by Fernando Blancas MD [place] [facility] [place]A: Heart [employer] 02/11/2027 [facility] / / [id number] documented as of this encounter Visit Diagnoses Diagnosis S/P CABG x 3- Primary Postsurgical aortocoronary bypass status documented in this encounter Advance Directives * [...] Advance Directives occurred with: Patient Care Teams Tankage Supervisor Relationship Specialty Start Date End Date Carla Evans MD [address] [place] [address] PCP - General Internal Medicine 04/22/24 documented as of this encounter
--- OUTSIDE RECORDS SUMMARY | 2024-11-04 22:07 | External Medical Summary | Summary of Care ---
Author Name Unknown Organization [facility] Address [address] [facility] [place] [address] Phone [phone] Care Team Providers Care [employer] Manager Name Role Phone Katey Evans MD Primary Care Provider Reason for Visit * Reason Onset Date Comments Medication Refill 05/09/2024 Encounter Details Date Type Department Care Team (Late st Contact Info) Description 05/08/2024 Refill Family Practice [facility] [address] [place] [address] Katey Evans MD [address] [place] [id number] Type 2 diabetes mellitus with hemoglobin A1c goal of less than 7.0% ([facility])*; LV (left ventricular) mural thrombus with acute LA (HCC); NSTEMI (non-ST elevated myocardial infarction) ([facility]) Allergies No known active allergiesdocumented as of this encounter (statuses as of 05/09/2024) Medications Medication Sig Dispensed Refills Start Date End Date Status Microlet Lancets Use to check blood glucose 4 times per day 200 Each 12 04/17/2024 Active traMADol HCl 50 MG Oral Tablet (Ultram) Take 1 Tablet by mouth every 6 hours as needed for severe pain 10 Tablet 04/18/2024 Active Warfarin Sodium 5 MG [...] 04/30/2024 Active Aspirin 81 MG Oral Tablet ChewableIndicatio [...] goal of less than 7.0% ([facility]) Use to inject insulin 4 times per day 200 Each 12 05/08/2024 Active Contour Next Test In Vitro Strip (Glucose Blood)Indications :Type 2 diabetes mellitus with hemoglobin A1c goal of less than 7.0% ([facility]) Check blood glucose 4 times per day 200 Strip 12 05/08/2024 Active Famotidine 20 MG Oral Tablet (Pepcid) Take 1 Tablet by mouth in the morning. Take for 30 days then stop. 90 Tablet 3 05/08/2024 Active Lisinopril 2.5 MG Oral Tablet (Prinivil)Indicat ions:NSTEMI (non-ST elevated myocardial infarction) (HCC) Take 1 Tablet by mouth in the morning. 90 Tablet 3 05/08/2024 Active Metoprolol Succinate ER 25 MG Oral Tablet Extended Release 24 Hour (toPROL XL)Indications:NS DUSTY (non-ST elevated myocardial infarction) (HCC) Take 1 Tablet by mouth in the morning. 90 Tablet 3 05/08/2024 Active BD Pen Needle Juana U/F 32G X 4 MM (Insulin Pen Needle) Use to inject insulin 4 times per day 200 Each 12 04/17/2024 05/08/20 24 Discontinu ed(Refill) Contour Next Test In Vitro Strip (Glucose Blood) Check blood glucose 4 times per day 200 Strip 12 04/17/2024 05/08/20 Discontinu ed(Refill) Aspirin 81 MG Oral Tablet Chewable Take 1 Tablet by mouth in the morning. 30 Tablet 12 04/18/2024 05/08/20 Discontinu ed(Refill) Atorvastatin Calcium 80 MG Oral Tablet (Lipitor) Take 1 Tablet by mouth every afternoon. 30 Tablet 12 04/18/2024 05/08/20 Discontinu ed(Refill) Lisinopril 2.5 MG Oral Tablet (Prinivil) Take 1 Tablet by mouth in the morning. 30 Tablet 12 04/18/2024 05/08/20 Discontinu ed(Refill) Metoprolol Succinate ER 25 MG Oral Tablet Extended Release 24 Hour (toPROL XL) Take 1 Tablet by mouth in the morning. 30 Tablet 12 04/18/2024 05/08/20 Discontinu ed(Refill) Famotidine 20 MG Oral Tablet (Pepcid) Take 1 Tablet by mouth in the morning. Take for 30 days then stop. 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 04/23/2024 LV dysfunction 04/05/2024 LV (left ventricular) mural thrombus with acute LA 04/05/2024 Coronary artery disease invo lving inupiat coronary artery of inupiat heart with angina pectoris 04/04/2024 NSTEMI (non-ST elevated myocardial infarction) 0 04/04/2024 Type 2 diabetes mellitus wit h hemoglobin A1c goal of less than 7.0% 04/04/2024 Tobacco use 04/04/2024 HTN (hypertension) 04/04/2024 documented as of this encounter (statuses as of 05/09/2024) Resolved Problems Problem Noted Date Diagnosed Date Resolved Date Heart failure with mildly re duced ejection fraction (HFmrEF) 04/05/2024 04/06/2024 documented as of this encounter (statuses as of 05/09/2024) Immunizations Name Administration Dates Next Due Seasonal [...] encounter Miscellaneous Notes * Telephone Encounter - Rajani Coon PHARM Tech - 05/09/2024 10:56 AM EDT Pt called stating his insurance is not active so it wont cover prescriptions. Advised caller to contact insurance. Thanks, Rajani Coon Revising Clerk [facility] 05/09/2024,10:57 AM * Telephone Encounter - Katey Evans MD - 05/08/2024 5:08 PM EDT Signed Prescriptions: Disp Refills Aspirin 81 MG Oral Tablet Chewable 90 Tab*3 Sig: Take 1 Tablet by mouth in the morning.Authorizing Provider: KATEY EVANS Atorvastatin Calcium 80 MG OralTablet (Li*90 Tab*3 Sig: Take 1 Tablet by mouth every afternoon.Authorizing Provider: KATEY EVANS BD Pen Needle Juana U/F 32G X 4 MM (Insulin*200 Ea*12 Sig: Use to inject insulin4 times per dayAuthorizing Provider: KATEY EVANS Contour Next Test In Vitro Strip (Glucose *200 St*12 Sig: Check blood glucose 4 times per dayAuthorizing Provider: KATEY EVANSFamotidine 20 MG Oral Tablet (Pepcid) 90 Tab*3 Sig: Take 1 Tablet by mouth in the morning. Take for30 days then stop.Authorizing Provider: KATEY EVANS Lisinopril 2.5 MG Oral Tablet (Prinivil) 90 Tab*3Sig: Take 1 Tablet by mouth in the morning.Authorizing Provider: KATEY EVANS MetoprololSuccinate ER 25 MG Oral Tablet *90 Tab*3 Sig: Take 1 Tablet by mouth in the morning.Authorizing Provider: KATEY EVANS * Telephone Encounter - Lee Ann Frazier LPN - 05/08/2024 4:17 PM EDTPending Prescriptions: Disp Refills Aspirin 81 MG Oral Tablet Chewable 90 Tab*3 Sig: Take 1 Tablet by mouth in the morning. Atorvastatin Calcium 80 MG Oral Tablet (Li*90 Tab*3 Sig: Take 1 Tablet by mouth every afternoon. BD Pen Needle Juana U/F 32G X 4 MM (Insulin*200 Ea*12 Sig: Use to inject insulin 4 times per day Contour Next Test In Vitro Strip (Glucose *20 0 St*12 Sig: Check blood glucose 4 times per day Famotidine 20 MG Oral Tablet (Pepcid) 90 Tab*3 Sig: Take 1 Tablet by mouth in the morning. Take for 30 days then stop. Lisinopril 2.5 MG Oral Tablet (Prinivil) 90 Tab*3 Sig: Take 1 Tablet by mouth in the morning. Metoprolol Succinate ER 25 MG Oral Tablet *90 Tab*3 Sig: Take 1 Tablet by mouth in the morning. ------ * Telephone Encounter - Ji Parisi, general adjuster - 05/08/2024 4:01 PM EDT Patient would like these filled for a 90 day supply and sent to [id number] [facility] Patient calling requesting Lisinopril 2.5 MG Oral Tablet (Prinivil), Potassium Chloride ER 10 MEQ Oral Tablet Extended Release, Atorvastatin Calcium 80 MG Oral Tablet (Lipitor), Famotidine 20 MG OralTablet (Pepcid),Metoprolol Succinate ER 25 MG Oral Tablet Extended Release 24 Hour (toPROL XL) , traMADol HCl 50 MG Oral Tablet (Ultram) , Warfarin Sodium 5 MG Oral Tablet (Coumadin) BD Pen Needle Juana U/F 32G X 4 MM (Insulin Pen Needle) Contour Next Test In Vitro Strip (Glucose Blood) and MicroletLancets, Aspirin 81 MG Oral Tablet Chewable . Upon chart review, medication was last prescribed by hospital. Pt did schedule a hospital follow up visit. Please advise if you wish to continue this therapy for the patient. Thank you, Ji Parisi Revising Clerk [facility] 05/08/2024, 4:04 PM documented in this encounter Plan of Treatment Upcoming Encounters Date Type Department Care Team (Late st Contact Info) Description 05/21/2024 10:30 AM EST Office Visit Cardiothoracic Surg [facility] [place] [address] [place] [address] Fernando Blancas MD [address] [place] [address] 05/27/2024 11:10 AM EST Office Visit Pharmacy, [address] [place] [address] [facility] [address] [address] 06/03/2024 1:30 PM EST Imaging Vascular Lab, [facility] II 2nd Floor, [address] [place] [address] 06/03/2024 2:10 PM EST Office Visit Vascular Surgery, [address] [place] [address] Osman Knig MD [address] [place] [address] 06/04/2024 11:30 AM EST Office Visit Cardiology, [facility] [address] [facility] [address] Lorena Jacinto CRNP 132 [facility] [place] [address] 08/14/2024 9:40 AM EST Office Visit Family Practice [facility] [address] [place] [address] Katey Evans MD [address] [place] [address] Health Maintenance Due Date Last Done Comments [...] this encounter Medical Devices Implanted Type Area Swing Type Lathe Operator Device Identifier Shelf Expiration Date Model / Serial / Lot Suture Steel 6 B&S19 M654g - [id number] Implanted:Qty: 8 on 04/13/2024 [place] [facility] [place] Sternum JN[place] : [employer] 12/12/2028 M654G / / [id number] Marker Coronary - [id number] Implanted:Qty: 2 on 04/13/2024 by Fernando Bl[place] [facility] [place]: Heart [employer] 02/11/2027 [facility] / / [id number] documented as of this encounter Visit Diagnoses Diagnosis Type 2 diabetes mellitus with hemoglobin A1c goal of less than 7.0% ([facility])- Primary LV (left ventricular) mural thrombus with acute LA ([facility]) Acute myocardial infarction of other specified sites, episode of care unspecified NSTEMI (non-ST elevated myocardial infarction) (HCC) Acute [...] Advance Directives occurred with: Patient Care Teams [employer] Manager Relationship Specialty Start Date End Date Katey Evans MD [address] [place] [address] PCP - General Internal Medicine 04/22/24 documented as of this encounter
--- OUTSIDE RECORDS SUMMARY | 2024-11-04 22:07 | External Medical Summary | Summary of Care ---
Author Name Unknown Organization [facility] Address [address] [place] [address] Phone [phone] Care Team Providers Care Certified Social Workers In Health Care Name Role Phone Katey Evans MD Primary Care Provider Encounter Details Date Type Department Care Team (Late st Contact Info) Description 05/08/[address] [facility] [address] [place] [address] Katey Evans MD [address] [place] [address] Type 2 diabetes mellitus with hemoglobin A1c goal of less than 7.0% ([facility]ER[facility])*; LV (left ventricular) mural thrombus with acute AL ([facility]); NSTEMI (non-ST elevated myocardial infarction) ([facility]) Allergies No known active allergiesdocumented as [...] A1c goal of less than 7.0% (HCC) Check blood glucose 4 times per day [...] LV (left ventricular) mural thrombus with acute AL 04/05/2024 Coronary artery disease invo lving af[place] coronary artery of [place] heart with angina pectoris 04/04/2024 NSTEMI (non-ST [...] encounter Miscellaneous Notes * Telephone Encounter - Katey Evans MD [...] morning. ------ * Telephone Encounter - Ji Parisi assistant professor of nursing - 05/08/2024 4:01 PM EDT Patient would like these filled for a 90 day supply and sent to [id number] [address] [facility] Patient calling requesting Lisinopril 2.5 MG Oral [...] for the patient. Thank you, Ji Parisi [employer] Support [facility] 05/08/2024, 4:04 PM documented in this encounter Plan of Treatment Upcoming Encounters Date Type Department Care Team (Late st Contact Info) Description 05/21/2024 10:30 AM EST Office Visit [facility] [place] [address] [place] [address] Fernando Blancas MD [address] [place] [address] 05/27/2024 11:10 AM EST Office Visit Pharmacy, [facility] [address] [facility] [place] [address] [facility] [address] [facility] [place] [address] 06/03/2024 1:30 PM EST Imaging Vascular Lab, [facility] 2nd Floor, [place] [address] [facility] [place] [address] 06/03/2024 2:10 PM EST Office Visit Vascular Surgery, [address] [place] [address] Osman King MD [address] [place] [address] 06/04/2024 11:30 AM EST Office Visit Cardiology, [facility] [address] [facility] [place] [address] Lorena Jacinto CRNP [address] [place] [address] 08/14/2024 9:40 AM EST Office Visit Family Practice [facility] [address] [facility] [place] [address] Katey Evans MD [address] [place] [address] Health Maintenance Due Date Last Done Comments [...] ( - season) 2024 07/20/2021, 11/27/2020, 10/31/2020 HbA1c 10/02/2024 [...] this encounter Medical Devices Implanted Type Area Gymnastic Coach Device Identifier Shelf Expiration Date Model / Serial / Lot Suture Steel 6 B&[id number] - [id number] Implanted:Qty: 8 on 04/13/2024 by Fernando Blancas MD at OR [facility] N/A: Sternum JNJ : [employer] 12/12/2028 [id number] / / [id number] Marker Coronary - [id number] Implanted:Qty: 2 on 04/13/2024 by Fernando Blancas MD at OR [facility] N/A: Heart [employer] 02/11/2027 [facility] / / [id number] documented as of this encounter Visit Diagnoses Diagnosis Type 2 diabetes mellitus with hemoglobin A1c goal of less than 7.0% (HCC)- Primary LV (left ventricular) mural thrombus with acute AL (HCC) Acute myocardial infarction of other specified [...] Advance Directives occurred with: Patient Care Teams Certified Social Workers In Health Care Relationship Specialty Start Date End Date Katey Evans MD [address] [facility] [place] [address] PCP - General Internal Medicine 04/22/24 documented as of this encounter
[2024-11-05 01:29] LABS: ANTI-Xa, UFH(UnfractionatedHep 0.35 IU/ml (0.3-0.7)
[2024-11-05 06:16] LABS: Basophils # (auto) 0.12 K/uL (0.00-0.20); Basophils % (auto) 1.2 %; Eosinophils # (auto) 0.29 K/uL (0.00-0.50); Eosinophils % (auto) 2.8 %; Hematocrit (blood only) 43.3 % (42.0-52.0); Hemoglobin 14.9 g/dl (14.0-18.0); Immature Granulocytes # (auto) 0.04 K/uL (0.01-0.20); Immature Granulocytes % (auto) 0.4 %; Lymphocytes # (auto) 4.26 K/uL (1.20-3.40); Lymphocytes % (auto) 41.2 %; Mean Corpuscular Hemoglobin 29.4 pg (25.0-34.0); Mean Corpuscular Hgb Conc 34.4 g/dL (32.0-36.0); Mean Corpuscular Volume 85.6 fL (80.0-100.0); Mean Platelet Volume 10.9 fL (9.4-12.4); Monocytes # (auto) 0.68 K/uL (0.11-0.59); Monocytes % (auto) 6.6 %; Neutrophils # (auto) 4.94 K/uL (1.40-6.50); Neutrophils % (auto) 47.8 %; Platelet Count 203 K/uL (130-400); RDW Coefficient of Variation 13.3 % (11.5-14.5); RDW Standard Deviation 41.2 fL (36.4-46.3); Red Blood Count 5.06 M/uL (4.70-6.10); White Blood Count 10.33 K/ul (4.8-10.8)
[2024-11-05 06:21] LABS: Albumin Globulin Ratio 1.3 (0.9-2); Albumin Level 3.8 gm/dl (3.4-5.0); BUN Creatinine Ratio 35.7 (10-20); Bilirubin Direct 0.1 mg/dl (0-0.2); Bilirubin,Total 0.6 mg/dl (0.2-1.0); Calcium 9.9 mg/dl (8.6-10.3); Creatinine Clr Calc Pharmacy 189.4 ml/min; Globulin 2.9 gm/dl (2.5-4.0); Potassium 3.9 mmol/L (3.5-5.1); Total Protein 6.7 gm/dl (6.0-8.3)
[2024-11-05 06:28] LABS: ANTI-Xa, UFH(UnfractionatedHep 0.23 IU/ml (0.3-0.7)
[2024-11-05 06:31] LABS: Prothrombin Time 11.2 Seconds (9.0-12.0)
--- NOTE | 2024-11-05 08:49 | Cardiology Consultation ---
Date of Consultation November 05, 2024 Assessment & Plan (1) Atypical chest pain: (2) Hypertension: (3) CAD (coronary artery disease): (4) LV (left ventricular) mural thrombus: (5) Non compliance w medication regimen: Plan Patient admitted for atypical chest pain and SOB. Complex history of CABG x3 in Mar 2024, described above. Prior ischemic cardiomyopathy with LVEF 40% in Mar with LV mural thrombus. Admitted with CP/SOB with history of CAD -EKG initially demonstrated sinus tach with non specific ST/T wave abnormality. No acute ischemic changes. -HS troponin negative x4 since admission -Echo revealed improved LVEF at 55% compared to 40-45% in Mar 2024 -Resume GDMT - Aspirin 81 mg, atorvastatin 80 mg, metoprolol succinate 25 mg, lisinopril 2.5 mg daily. -Added nitro paste - Can discontinue at this time -his chest pain is reproducible with palpation to the chest wall, MSK component -Chest pain is non exertional -Could consider future outpatient ischemic work up with nuclear stress test if he has recurrent anginal symptoms. He denied recent exertional chest pain. History of Reduced LVEF/ischemic cardiomyopathy with LVEF 40-45%, now 55% -interval improvement in LVEF since CABG -continue guide line directed medical therapies -Likely would not afford Entresto. Continue lisinopril and metoprolol LV mural thrombus -evidence of LV thrombus on echo -This was present at time of CABG in Mar 2024 and he was started on Coumadin. -He was non compliant with Coumadin as an outpatient. -Started on IV heparin on admission -Resume oral Coumadin 5 mg daily -Daily PT/INR. Goal INR 2-3 -Stop heparin when INR is 2 or greater. Hypertension -BP uncontrolled on admission due to non compliance -resume metoprolol and lisinopril -D/C nitro oint. -titrate lisinopril as needed Case discussed with Dr. Morris. Further recommendations pending his evalua tion and assessment I spent a total of 60 minutes on the date of service in preparation, delivery, and documentation of the care provided to this patient, excluding any time spent in the performance of separately billed services. Lolita Jackson PA-C Department of Cardiology, [facility] This chart was completed in part utilizing Speech Voice Recognition Software. Grammatical errors, random word insertions, pronoun errors, and incomplete sentences are an occasional consequence of this system due to software limitations, ambient noise, and hardware issues. Any formal questions or concerns about the content, text, or information contained within the body of this dictation should be directly addressed to the provider for clarification. Supervising Physician Co-Signing Physician Notes I have personally performed a history and physical examination on the patient. I have reviewed the advance practitioner's documentation, and I agree with, and take responsibility for the plan of care. 54-year-old male with a history of coronary disease status post coronary artery bypass grafting March 2024 and left ventricular apical thrombus presents with chest discomfort. Patient admits to noncompliance with all cardiovascular medications including warfarin for more than 2 months. Repeat echocardiogram demonstrating apical LV thrombus. ECG without ischemic changes. Nonspecific T wave abnormality noted. Echocardiogram reveals presence of an AV apical thrombus and apical akinesis. Overall LV systolic function has improved when compared to echocardiogram of March 2024. Recommend restart cardiovascular medications. IV heparin infusion as a bridge to warfarin anticoagulation. Goal INR 2.0-3.0. Discontinue IV heparin when INR 2.0 or greater. Restart lisinopril and metoprolol. Financial constraints noted. Cardiology will continue to follow during hospitalization. I spent a total of 40 minutes on the date of service in preparation, delivery, and documentation of the care provided to this patient, excluding any time spent in the performance of separately billed services. Brady Morris DO, [facility] History of Present Illness Reason for Consultation: CP; History of CAD s/p CABG in Requesting Physician: Viola Lopez Attending Physician: Dr. Morris History of Present Illness Patient is a 54 year old male who presented to [facility] with complaints of chest pain and SOB. Per admission notes, patient went to take out the trash yesterday morning. He then went to lay down in his brothers car. The next thing he recalls is being awakened 4 hours later. He is not sure if he "fell asleep" or "passed out". His brother woke him up. Upon awakening he reported chest pain and SOB. He was brought to the ER due to his complaints. He reportedly has not been taking his medications for at least 2 months. Likely longer. Per review of outpatient chart, he no showed for anticoagulation clinic appts, cardio f/u appts since Apr 2024. Upon arrival the the ER, EKG demonstrated Sinus tachycardia with non specific ST/T wave abnormality. HS troponin negative x4 since admission BP was uncontrolled. D.Dimer was elevated. Chest CTA was negative for acute PE. He was started back on his GDMT with metoprolol, lisinopril, ASA and statin. Nitro paste was added. BP has trended downward. At time of evaluation this morning, patient was resting comfortably. Reports residual 1/10 chest pain, reproducible with palpation to the left chest wall and with positional movement. HR and BP improved. No edema. No SOB. Requesting to eat. Agreeable to resuming meds on discharge. History includes: 1. NSTEMI - Severe CAD s/p CABG x 3 Mar 2024 at [facility] ([place], Ao-obtuse marginal, Ao-PDA using reversed saphenous vein). Also has 100% occlusion of the RCA. 2. Ischemic cardiomyopathy with LVEF 40% per echo in Mar 2024 3. LV apical mural thrombus 4. HTN 5. DM 6. Dyslipidemia 7. tobacco abuse 8. Non compliance with medications and appts 9 Left sided carotid stenosis 50-69%, right sided < 50% (failed to keep f/u vascular appts) Allergies Allergy/AdvReac Type Severity Reaction Status Date / Time No Known Allergies Allergy Unverified 06/28/21 09:11 Home Medications Medication Instructions Recorded Confirmed Type blood sugar diagnostic (Pocket Conciergeuch #50 ea 09/06/20 04/03/24 Rx Verio test strips) blood-glucose meter (OneTouch #1 ea 09/06/20 04/03/24 Rx Verio Flex Start kit) lancets 33 gauge (OneTouch Delica #100 ea 09/06/20 04/03/24 Rx Lancets) aspirin 81 mg tablet,delayed 81 mg PO UD 11/04/24 11/04/24 History release atorvastatin 40 mg tablet 40 mg PO UD 11/04/24 11/04/24 History carvedilol 3.125 mg tablet 3.125 mg PO UD 11/04/24 11/04/24 History empagliflozin 10 mg tablet 10 mg PO UD 11/04/24 11/04/24 History (Jardiance) furosemide 20 mg tablet 20 mg PO UD 11/04/24 11/04/24 History insulin glargine 100 unit/mL 10 unit subcut UD 11/04/24 11/04/24 History subcutaneous solution (Lantus U-100 Insulin) sacubitril 24 mg-valsartan 26 mg 1 tab PO UD 11/04/24 11/04/24 History tablet (Entresto) Patient History Medical History Medical non-compliance Chronic low back pain Diabetes mellitus Scabies Surgical History No history of previous surgery Family History Denies family history of Ovarian cancer Prostate cancer Myocardial infarction Breast cancer Colorectal cancer Social History Smoking Status: Former smoker Tobacco Type: Cigarettes Age Started Using Tobacco: 30; Age Quit Using Tobacco: 50; packs per day: 2; Cigarettes Per Day: 40; Second Hand Exposure: No; Do You Dip or Chew Tobacco: No; Hx Alcohol Use: No Hx Substance Use: No Preferred Language: Malay Communication Ability: Effective Visual Impairment: No Limitations Hearing Ability: Normal Vegetables Cook Required: No Beliefs That Will Affect Care: None marital status: Single Current Living Situation: Alone current occupational status: employed current occupation: [employer] Other Information That Helps Us Care for You: No Feels Safe at Home: Yes Safety Concerns: Feels Safe At This Time Childhood Exposure to Second-Hand Smoke: Yes Diet: regular caffeine: No during the past year weight has: decreased > 10 lbs Dental Care, Regularly: Yes Physical Activity Frequency: Daily Sunscreen Use: No Assistive Devices: None Review of Systems Review of Systems: All systems reviewed & are unremarkable except as noted in HPI & below Physical Exam Constitutional: WD/WN, vitals as above average body habitus; no acute distress Neck: trachea midline, no thyromegaly normal visual inspection Respiratory: normal respiratory effort Cardiovascular: Rate/Rhythm: regular rate and regular rhythm Heart Sounds: normal S1 and normal S2; no murmur Vessels: no JVD Extremities: no edema Gastrointestinal (Abdomen): normal bowel sounds, soft, nontender, no hepatosplenomegaly Neurologic: PERRL, EOMI, accommodation nl, no face palsy, no dysarthria Results & Data Vital Signs (Past 12 Hours) Vital Signs Temp Pulse Pulse Resp BP BP Pulse Ox 11/05/24 07:18 36.4 C L 71 17 131/85 98 11/05/24 02:49 36.5 C 70 18 148/87 H 95 11/04/24 23:00 83 11/04/24 22:41 36.3 C L 74 18 136/80 98 O2 Del Method 11/05/24 07:18 Room Air 11/05/24 02:49 Room Air 11/04/24 23:00 11/04/24 22:41 Room Air Laboratory Results Cardiac Enzymes 11/04/24 11/04/24 11/04/24 Range/Units 13:49 13:50 17:06 AST (13-39) U/L Troponin I High Sens 13.6 12.0 (0-20) pg/ml B-Natriuretic Peptide 71 (0-100) pg/ml 11/04/24 11/05/24 11/05/24 Range/Units 22:35 00:17 05:39 AST 10 L (13-39) U/L Troponin I High Sens 13.5 14.5 (0-20) pg/ml B-Natriuretic Peptide (0-100) pg/ml Coagulation 11/04/24 11/04/24 11/05/24 Range/Units 13:49 13:50 05:39 PT 11.1 11.2 (9.0-12.0) Seconds APTT 28 (21-31) Seconds B-Natriuretic Peptide 71 (0-100) pg/ml CBC 11/04/24 11/05/24 Range/Units 13:49 05:39 WBC 11.15 H 10.33 (4.8-10.8) K/ul RBC 5.26 5.06 (4.70-6.10) M/uL Hgb 15.5 14.9 (14.0-18.0) g/dl Hct 44.3 43.3 (42.0-52.0) % Plt Count 206 203 (130-400) K/uL Neut # (Auto) 6.84 H 4.94 (1.40-6.50) K/uL Lymph # (Auto) 3.12 4.26 H (1.20-3.40) K/uL Harris # (Auto) 0.81 H 0.68 H (0.11-0.59) K/uL Eos # (Auto) 0.23 0.29 (0.00-0.50) K/uL Baso # (Auto) 0.11 0.12 (0.00-0.20) K/uL Comprehensive Metabolic Panel 11/04/24 11/05/24 Range/Units 13:49 05:39 Sodium 134 L 135 L (136-145) mmol/L Potassium 4.2 3.9 (3.5-5.1) mmol/L Chloride 103 104 (98-107) mmol/L Carbon Dioxide 21 25 (21-32) mmol/L BUN 18 20 (6-23) mg/dl Creatinine 0.62 0.56 L (0.6-1.4) mg/dl Glucose 340 H* 191 H (70-99(Fasting)) mg/dl Calcium 10.6 H 9.9 (8.6-10.3) mg/dl Direct Bilirubin 0.1 (0-0.2) mg/dl AST 10 L (13-39) U/L ALT 7 (7-52) U/L Alkaline Phosphatase 117 H (34-104) U/L Total Protein 6.7 (6.0-8.3) gm/dl Albumin 3.8 (3.4-5.0) gm/dl Intake and Output 11/04/24 11/05/24 11/05/24 22:59 06:59 14:59 Intake Total 300 / 688.267 388.267 / 688.267 Balance 300 / 688.267 388.267 / 688.267 Intake: IV 388.267 / 388.267 Heparin 78402 Unit/500 ml D5w 388.267 / 388.267 25,000 units In 500 ml @ 1,600 UNITS/HR 32 mls/hr IV .[id number] DEREK Rx#:[id number] Oral 300 / 300 Other: Other Intake Source NPO # Unmeasured Voids 1 Weight 109 kg 109 kg Weight Measurement Method [facility] Diagnostic Findings Telemetry reviewed: NSR, no arrhythmias EKG reviewed from 11/04/24 at 17:24 PM NSR, non specific ST/T wave abnormality No acute ischemic changes EKG reviewed from admission dated 11/04/24: Sinus tachycardia at 120 bmp non specific T wave abnormality PVC's present Echo results pending: Compared with prior study, LVEF improved LVEF 50-55% Septal motion is consistent with post op state Moderate sized apical and anteroseptal wall motion abnormality with hypokinesis to akinessis of the segments. Moderate sized LV apical thrombus Trace MR Prior outside data reviewed: Interpretation Summary The examination is adequate to evaluate the referral indication. The qualitative LV ejection fraction is 40-44% (mildly reduced). The LV wall thickness is mildly increased (concentric). There is a large sized apical, septal, anteroseptal, and anterior wall motion abnormality with akinesis of the segments. There is an apical left ventricular mural thrombus. Mild secondary mitral regurgitation is present. Cardiac cath report reviewed from Mar 2024: Coronary Anatomy Dominant: Right Left Main (% Stenosis): Distal (20%) LAD (% Stenosis): Proximal (Ulcerated 30 to 50%), Mid (Up to 95%) and Distal (70% followed by 60 to 70%) D1 (% Stenosis): Ostial (95%) D2 (% Stenosis): Ostial (90%) D3 (% Stenosis): Normal (Mild scattered) Circumflex (% Stenosis): Mid (Long eccentric 50 to 70%) and Distal (99%) OM1 (% Stenosis): Proximal (70%) OM2 (% Stenosis): Proximal (99%) OM3 (% Stenosis): Normal RCA (% Stenosis): Proximal (100%) R PDA (% Stenosis): Normal R PL1 (% Stenosis): Normal Medications Administered Current Inpatient Medications Acetaminophen (Acetaminophen 325 Mg Tab) 650 mg PO Q4H PRN PRN Reason: Pain or Fever Stop: 12/04/24 19:59 Aspirin (Aspirin 81 Mg Ectab) 81 mg PO DAILY DEREK Stop: 12/05/24 08:59 Last Admin: 11/05/24 09:02 Dose: 81 mg Atorvastatin Calcium (Atorvastatin 40 Mg Tab) 80 mg PO DAILY DEREK Stop: 12/05/24 08:59 Last Admin: 11/05/24 09:02 Dose: 80 mg Dextrose (Dextrose 50% 50 Ml Syringe) 25 - 50 ml IV UD PRN; Protocol PRN Reason: Hypoglycemia Protocol Stop: 12/04/24 16:23 Glucagon (Glucagon For Inj 1 Mg Vial) 1 mg SQ UD PRN; Protocol PRN Reason: Hypoglycemia Protocol Stop: 12/04/24 16:23 Glucose (Glucose 40% Gel 15 Gm Tube) 15 - 30 gm PO UD PRN; Protocol PRN Reason: Hypoglycemia Protocol Stop: 12/04/24 16:23 Glucose (Glucose 10 Tab/Tube) 4 - 8 tab PO UD PRN; Protocol PRN Reason: Hypoglycemia Protocol Stop: 12/04/24 16:23 Heparin Sodium/Dextrose (Heparin 10824 Unit/500 Ml D5w) 25,000 units in 500 mls @ 34 mls/hr IV .[id number] [facility]; Protocol Stop: 12/04/24 17:29 Last Titration: 11/05/24 06:32 Dose: 1,700 units/hr, 34 mls/hr Insulin Aspart (Insulin Aspart Per Unit Charge) 0 units SC ACHS [facility] Stop: 12/04/24 16:29 Last Admin: 11/05/24 07:24 Dose: 3 units Lisinopril (Lisinopril 2.5 Mg Tab) 2.5 mg PO QAJD [facility] Stop: 12/05/24 08:59 Last Admin: 11/05/24 09:02 Dose: 2.5 mg Metoprolol Succinate (Metoprolol Succ 25mg Ext Rel Tab) 25 mg PO QAM [facility] Stop: 12/04/24 19:59 Last Admin: 11/05/24 09:02 Dose: 25 mg Miscellaneous (Carbohydrates For Hypoglycemia ) 15 - 30 gm PO UD PRN PRN Reason: Hypoglycemia Protocol Stop: 12/04/24 16:23 Miscellaneous Information (Pharmacy Glycemic Mgmt Consult) 1 each N/A UD PRN PRN Reason: Consult Stop: 12/04/24 16:23 Nitroglycerin (Nitroglycerin Sl 0.4 Mg/Tab Tab) 0.4 mg SL Q5M PRN PRN Reason: Chest Pain Stop: 12/04/24 13:30 Last Admin: 11/04/24 18:10 Dose: 0.4 mg Nitroglycerin (Nitroglycerin 2% Ointment 30gm Tube) 1 inch EXT Q6 [facility] Stop: 12/04/24 20:04 Last Admin: 11/05/24 05:57 Dose: 1 inch (2) Hypertension Hypertension type: primary hypertension Qualified Code(s): I10 - Essential (primary) hypertension (3) CAD (coronary artery disease) Associated angina: unspecified whether angina present Coronary Disease- Associated Artery/Lesion type: [place] artery [place] vs. transplanted heart: [place] heart Qualified Code(s): I25.10 - Atherosclerotic heart disease of [place] coronary artery without angina pectoris
[2024-11-05] MEDS: lisinopril 2.5 MG TAB PO SCH (09:02)
[2024-11-05] MEDS: ATORVASTATIN 40 MG TAB PO SCH (09:02)
[2024-11-05] MEDS: ASPIRIN 81 MG ECTAB PO SCH (09:02)
[2024-11-05 09:18] LABS: Estimated Average Glucose 249 mg/dl; Hemoglobin A1C 10.3 % (4.5-5.6)
--- NOTE | 2024-11-05 10:14 | Electrocardiogram Report ---
Test Reason : Blood Pressure : */* mmHG Vent. Rate : 116 BPM Atrial Rate : 116 BPM P-R Int : 192 ms QRS Dur : 80 ms QT Int : 440 ms P-R-T Axes : 10 34 45 degrees QTcB Int : 611 ms Sinus tachycardia Nonspecific T wave abnormality Abnormal ECG When compared with ECG of 04-Nov-2024 13:30, Premature ventricular complexes are no longer Present Confirmed by Jesus Villela ([id number]) on 11/05/2024 10:14:09 AM Referred By: REFERRED SELF Confirmed By: Jesus Villela
--- NOTE | 2024-11-05 10:15 | Electrocardiogram Report ---
Test Reason : Blood Pressure : */* mmHG Vent. Rate : 83 BPM Atrial Rate : 83 BPM P-R Int : 162 ms QRS Dur : 82 ms QT Int : 354 ms P-R-T Axes : 51 52 89 degrees QTcB Int : 415 ms Normal sinus rhythm Nonspecific T wave abnormality Abnormal ECG When compared with ECG of 04-Nov-2024 14:00, (unconfirmed) Nonspecific T wave abnormality, worse in Inferior leads Confirmed by Jesus Villela ([id number]) on 11/05/2024 10:14:50 AM Referred By: REFERRED SELF Confirmed By: Jesus Villela
--- NOTE | 2024-11-05 10:51 | Electrocardiogram Report ---
Test Reason : Blood Pressure : */* mmHG Vent. Rate : 69 BPM Atrial Rate : 69 BPM P-R Int : 174 ms QRS Dur : 100 ms QT Int : 434 ms P-R-T Axes : 55 45 144 degrees QTcB Int : 465 ms Normal sinus rhythm Nonspecific T wave abnormality Abnormal ECG When compared with ECG of 04-Nov-2024 17:24, (unconfirmed) No significant change was found Confirmed by Jesus Villela ([id number]) on 11/05/2024 10:51:41 AM Referred By: REFERRED SELF Confirmed By: Jesus Villela
[2024-11-05] MEDS: ACETAMINOPHEN 325 MG TAB PO PRN (12:03)
--- NOTE | 2024-11-05 12:19 | Pharmacy Report ---
Pharmacy Glycemic Short Note 2 - Date of Service November 05, 2024 - Glycemic Short BSG Results (Last 24 hours): 11/04/24 11/04/24 11/04/24 13:49 18:31 19:54 Glucose 340 H* POC Glucose 274 H 315 H* 11/04/24 11/04/24 11/05/24 19:57 23:55 04:00 Glucose POC Glucose 279 H 227 H 178 H 11/05/24 11/05/24 11/05/24 05:39 07:13 11:37 Glucose 191 H POC Glucose 214 H 233 H OUTPATIENT ANTIDIABETIC REGIMEN: * Lantus prescribed but reportedly has not been using HbA1c: 10.3% on 11/05/24, previous HbA1c from 03/30/24 was 10.9% ASSESSMENT: * 54 year old male admitted yesterday with chest pain. Pharmacy has been consulted for glycemic management while he is admitted. * Patient reportedly has not been taking any of his medications for at least the last few months (including his hyperglycemic medications). BSG on admit was 274mg/dL. Lantus 15 units SQ x 1 was ordered and a weight based bolus insulin regimen with a stress of 2 was started. * Fasting BSG was 214mg/dL this morning. Patient was NPO so did not immediately give a dose of basal insulin. BSG kamila to 233mg/dL at lunch and diet was started so an additional dose of Lantus 15 units SQ x 1 was ordered for today. The bolus insulin regimen will be continued without change but the upper end of the BSG goal range was decreased. PLAN FOR INPATIENT GLYCEMIC CONTROL: * Basal insulin * Lantus 15 units SQ daily * Bolus insulin * NovoLog per scale ACHS or Q6hrs while NPO * Goal Range: Low 120 mg/dL - High 150 mg/dL * Correction Factor: 20 mg/dL/unit * Nutritional / Prandial insulin per carb ratio of 1 unit per 7 grams CHO consumed
--- NOTE | 2024-11-05 12:20 | Hospitalist Progress Note ---
Date of Service November 05, 2024 Assessment & Plan (1) Chest pain: (2) CHF (congestive heart failure): (3) HFrEF (heart failure with reduced ejection fraction): (4) Hyperlipidemia: (5) Hypertension: (6) DM2 (diabetes mellitus, type 2): Plan The patient is a 54-year-old male who presented to the ED on with complaints of chest pain. Patient recently hospitalized in April 2024 with NSTEMI, s/p CABG, LV thrombus previously on warfarin/aspirin. Patient stopped taking his medications 2 months ago due to issues with affording medication Rule out ACS Hx CABG x3-2023 Hx LV thrombus Initial EKG without acute changes, Trop negative x 2, continue to trend Repeat echo, EKG in a.m., chest x-ray/chest CTA unremarkable Has been off of aspirin/warfarin x 2 months, INR subtherapeutic Initiated heparin drip on admission Echo - LV EF 50-55%, Septal motion is consistent w/ post-op state. There is a moderate sized apical and anteroseptal wall motion abnormality with hypokinesis to akinesis of the segments. Moderate sized LV apical thrombus. There is trace mitral regurg. - Cardiology consulted- - Resume GDMT - Aspirin 81 mg, atorvastatin 80 mg, metoprolol succinate 25 mg, lisinopril 2.5 mg daily. - cont IV heparin, coumadin resumed, monitor INR Hx DM2: Off oral diabetic medications as well as insulin for months. - Current A1c 10.3% - [facility] Glycemic pharmacy consulted Full code DVT prophylaxis: Heparin drip Admission and Anticipated Discharge Date Admission Date: November 04, 2024 Subjective Pt seen in follow up of chest pain hx of CAD s/p CABG, not taking meds for past 2 months hx of LV thrombus, currently on IV heparin Cardiology consulted Pt lying in bed in NAD. currently denies chest pain - reports he has some w/ certain movements. Denies shortness of breath, dizziness, lightheadedness. Review of Systems Review of Systems: All systems reviewed & are unremarkable except as noted in Subjective Physical Exam Physical Exam: Constitutional: WD/WN, vitals as a renetta Eyes: PERRL, conjunctiva e normal, anicteri c sclerae ENMT: external ear and n ose normal Neck: supple Respiratory: normal respiratory effort, decreased breath sounds Cardiovascular: RRR, no murmur, no edema Gastrointestinal ( Abdomen): normal bowel sound s, soft, nontender Musculoskeletal: moves extremities Skin: no rashes, warm an d dry Neurologic: PERRL, EOMI, no fa ce palsy, no dysar thria, moves extre mities Psychiatric: Orientation: ramez portillo x 3 Results & Data Results & Data Vital Signs (Past 12 Hours) Vital Signs Temp Pulse Resp BP BP Pulse Ox O2 Del Method 11/05/24 10:58 36.2 C L 66 18 108/68 94 Room Air 11/05/24 07:18 36.4 C L 71 17 131/85 98 Room Air 11/05/24 02:49 36.5 C 70 18 148/87 H 95 Room Air Laboratory Results 11/05/24 11/05/24 11/05/24 Range/Units 11:37 07:13 05:39 WBC 10.33 (4.8-10.8) K/ul RBC 5.06 (4.70-6.10) M/uL Hgb 14.9 (14.0-18.0) g/dl Hct 43.3 (42.0-52.0) % MCV 85.6 (80.0-100.0) fL MCH 29.4 (25.0-34.0) pg MCHC 34.4 (32.0-36.0) g/dL RDW Std Deviation 41.2 (36.4-46.3) fL RDW Coeff of Romelia 13.3 (11.5-14.5) % Plt Count 203 (130-400) K/uL MPV 10.9 (9.4-12.4) fL Immature Gran % (Auto) 0.4 % Neut % (Auto) 47.8 % Lymph % (Auto) 41.2 % Isabela % (Auto) 6.6 % Eos % (Auto) 2.8 % Baso % (Auto) 1.2 % Neut # (Auto) 4.94 (1.40-6.50) K/uL Lymph # (Auto) 4.26 H (1.20-3.40) K/uL Isabela # (Auto) 0.68 H (0.11-0.59) K/uL Eos # (Auto) 0.29 (0.00-0.50) K/uL Baso # (Auto) 0.12 (0.00-0.20) K/uL Immature Gran # (Auto) 0.04 (0.01-0.20) K/uL PT 11.2 (9.0-12.0) Seconds INR 1.0 (0.9-1.1) APTT (21-31) Seconds PTT Ratio D-Dimer (0-500) ug/L FEU Heparin Anti-Xa, Unfract 0.23 L (0.3-0.7) IU/ml VBG pH (7.36-7.41) VBG pCO2 (38-50) mmHg VBG pO2 mmHg VBG HCO3 mmol/L VBG O2 Saturation % VBG Base Excess mEq/L Sodium 135 L (136-145) mmol/L Potassium 3.9 (3.5-5.1) mmol/L Chloride 104 (98-107) mmol/L Carbon Dioxide 25 (21-32) mmol/L Anion Gap 6 (3-11) BUN 20 (6-23) mg/dl Creatinine 0.56 L (0.6-1.4) mg/dl Est Cr Clr Drug Dosing 189.4 ml/min eGFR 117.13 BUN/Creatinine Ratio 35.7 H (10-20) Glucose 191 H (70-99(Fasting)) mg/dl POC Glucose 233 H 214 H (70-99) mg/dl Estimat Average Glucose 249 mg/dl Hemoglobin A1c 10.3 H (4.5-5.6) % Calcium 9.9 (8.6-10.3) mg/dl Magnesium 2.0 (1.7-2.4) mg/dl Total Bilirubin 0.6 (0.2-1.0) mg/dl Direct Bilirubin 0.1 (0-0.2) mg/dl AST 10 L (13-39) U/L ALT 7 (7-52) U/L Alkaline Phosphatase 117 H (34-104) U/L Troponin I High Sens (0-20) pg/ml B-Natriuretic Peptide (0-100) pg/ml Total Protein 6.7 (6.0-8.3) gm/dl Albumin 3.8 (3.4-5.0) gm/dl Globulin 2.9 (2.5-4.0) gm/dl Albumin/Globulin Ratio 1.3 (0.9-2) Lipase (11-82) U/L 11/05/24 11/05/24 11/04/24 Range/Units 04:00 00:17 23:55 WBC (4.8-10.8) K/ul RBC (4.70-6.10) M/uL Hgb (14.0-18.0) g/dl Hct (42.0-52.0) % MCV (80.0-100.0) fL MCH (25.0-34.0) pg MCHC (32.0-36.0) g/dL RDW Std Deviation (36.4-46.3) fL RDW Coeff of Romelia (11.5-14.5) % Plt Count (130-400) K/uL MPV (9.4-12.4) fL Immature Gran % (Auto) % Neut % (Auto) % Lymph % (Auto) % Isabela % (Auto) % Eos % (Auto) % Baso % (Auto) % Neut # (Auto) (1.40-6.50) K/uL Lymph # (Auto) (1.20-3.40) K/uL Isabela # (Auto) (0.11-0.59) K/uL Eos # (Auto) (0.00-0.50) K/uL Baso # (Auto) (0.00-0.20) K/uL Immature Gran # (Auto) (0.01-0.20) K/uL PT (9.0-12.0) Seconds INR (0.9-1.1) APTT (21-31) Seconds PTT Ratio D-Dimer (0-500) ug/L FEU Heparin Anti-Xa, Unfract 0.35 (0.3-0.7) IU/ml VBG pH (7.36-7.41) VBG pCO2 (38-50) mmHg VBG pO2 mmHg VBG HCO3 mmol/L VBG O2 Saturation % VBG Base Excess mEq/L Sodium (136-145) mmol/L Potassium (3.5-5.1) mmol/L Chloride (98-107) mmol/L Carbon Dioxide (21-32) mmol/L Anion Gap (3-11) BUN (6-23) mg/dl Creatinine (0.6-1.4) mg/dl Est Cr Clr Drug Dosing ml/min eGFR BUN/Creatinine Ratio (10-20) Glucose (70-99(Fasting)) mg/dl POC Glucose 178 H 227 H (70-99) mg/dl Estimat Average Glucose mg/dl Hemoglobin A1c (4.5-5.6) % Calcium (8.6-10.3) mg/dl Magnesium (1.7-2.4) mg/dl Total Bilirubin (0.2-1.0) mg/dl Direct Bilirubin (0-0.2) mg/dl AST (13-39) U/L ALT (7-52) U/L Alkaline Phosphatase (34-104) U/L Troponin I High Sens 14.5 (0-20) pg/ml B-Natriuretic Peptide (0-100) pg/ml Total Protein (6.0-8.3) gm/dl Albumin (3.4-5.0) gm/dl Globulin (2.5-4.0) gm/dl Albumin/Globulin Ratio (0.9-2) Lipase (11-82) U/L 11/04/24 11/04/24 11/04/24 Range/Units 22:35 19:57 19:54 WBC (4.8-10.8) K/ul RBC (4.70-6.10) M/uL Hgb (14.0-18.0) g/dl Hct (42.0-52.0) % MCV (80.0-100.0) fL MCH (25.0-34.0) pg MCHC (32.0-36.0) g/dL RDW Std Deviation (36.4-46.3) fL RDW Coeff of Romelia (11.5-14.5) % Plt Count (130-400) K/uL MPV (9.4-12.4) fL Immature Gran % (Auto) % Neut % (Auto) % Lymph % (Auto) % Isabela % (Auto) % Eos % (Auto) % Baso % (Auto) % Neut # (Auto) (1.40-6.50) K/uL Lymph # (Auto) (1.20-3.40) K/uL Isabela # (Auto) (0.11-0.59) K/uL Eos # (Auto) (0.00-0.50) K/uL Baso # (Auto) (0.00-0.20) K/uL Immature Gran # (Auto) (0.01-0.20) K/uL PT (9.0-12.0) Seconds INR (0.9-1.1) APTT (21-31) Seconds PTT Ratio D-Dimer (0-500) ug/L FEU Heparin Anti-Xa, Unfract (0.3-0.7) IU/ml VBG pH (7.36-7.41) VBG pCO2 (38-50) mmHg VBG pO2 mmHg VBG HCO3 mmol/L VBG O2 Saturation % VBG Base Excess mEq/L Sodium (136-145) mmol/L Potassium (3.5-5.1) mmol/L Chloride (98-107) mmol/L Carbon Dioxide (21-32) mmol/L Anion Gap (3-11) BUN (6-23) mg/dl Creatinine (0.6-1.4) mg/dl Est Cr Clr Drug Dosing ml/min eGFR BUN/Creatinine Ratio (10-20) Glucose (70-99(Fasting)) mg/dl POC Glucose 279 H 315 H* (70-99) mg/dl Estimat Average Glucose mg/dl Hemoglobin A1c (4.5-5.6) % Calcium (8.6-10.3) mg/dl Magnesium (1.7-2.4) mg/dl Total Bilirubin (0.2-1.0) mg/dl Direct Bilirubin (0-0.2) mg/dl AST (13-39) U/L ALT (7-52) U/L Alkaline Phosphatase (34-104) U/L Troponin I High Sens 13.5 (0-20) pg/ml B-Natriuretic Peptide (0-100) pg/ml Total Protein (6.0-8.3) gm/dl Albumin (3.4-5.0) gm/dl Globulin (2.5-4.0) gm/dl Albumin/Globulin Ratio (0.9-2) Lipase (11-82) U/L 11/04/24 11/04/24 11/04/24 Range/Units 18:31 17:06 13:50 WBC (4.8-10.8) K/ul RBC (4.70-6.10) M/uL Hgb (14.0-18.0) g/dl Hct (42.0-52.0) % MCV (80.0-100.0) fL MCH (25.0-34.0) pg MCHC (32.0-36.0) g/dL RDW Std Deviation (36.4-46.3) fL RDW Coeff of Romelia (11.5-14.5) % Plt Count (130-400) K/uL MPV (9.4-12.4) fL Immature Gran % (Auto) % Neut % (Auto) % Lymph % (Auto) % Isabela % (Auto) % Eos % (Auto) % Baso % (Auto) % Neut # (Auto) (1.40-6.50) K/uL Lymph # (Auto) (1.20-3.40) K/uL Isabela # (Auto) (0.11-0.59) K/uL Eos # (Auto) (0.00-0.50) K/uL Baso # (Auto) (0.00-0.20) K/uL Immature Gran # (Auto) (0.01-0.20) K/uL PT (9.0-12.0) Seconds INR (0.9-1.1) APTT (21-31) Seconds PTT Ratio D-Dimer (0-500) ug/L FEU Heparin Anti-Xa, Unfract (0.3-0.7) IU/ml VBG pH (7.36-7.41) VBG pCO2 (38-50) mmHg VBG pO2 mmHg VBG HCO3 mmol/L VBG O2 Saturation % VBG Base Excess mEq/L Sodium (136-145) mmol/L Potassium (3.5-5.1) mmol/L Chloride (98-107) mmol/L Carbon Dioxide (21-32) mmol/L Anion Gap (3-11) BUN (6-23) mg/dl Creatinine (0.6-1.4) mg/dl Est Cr Clr Drug Dosing ml/min eGFR BUN/Creatinine Ratio (10-20) Glucose (70-99(Fasting)) mg/dl POC Glucose 274 H (70-99) mg/dl Estimat Average Glucose mg/dl Hemoglobin A1c (4.5-5.6) % Calcium (8.6-10.3) mg/dl Magnesium (1.7-2.4) mg/dl Total Bilirubin (0.2-1.0) mg/dl Direct Bilirubin (0-0.2) mg/dl AST (13-39) U/L ALT (7-52) U/L Alkaline Phosphatase (34-104) U/L Troponin I High Sens 12.0 (0-20) pg/ml B-Natriuretic Peptide 71 (0-100) pg/ml Total Protein (6.0-8.3) gm/dl Albumin (3.4-5.0) gm/dl Globulin (2.5-4.0) gm/dl Albumin/Globulin Ratio (0.9-2) Lipase (11-82) U/L 11/04/24 Range/Units 13:49 WBC 11.15 H (4.8-10.8) K/ul RBC 5.26 (4.70-6.10) M/uL Hgb 15.5 (14.0-18.0) g/dl Hct 44.3 (42.0-52.0) % MCV 84.2 (80.0-100.0) fL MCH 29.5 (25.0-34.0) pg MCHC 35.0 (32.0-36.0) g/dL RDW Std Deviation 41.4 (36.4-46.3) fL RDW Coeff of Romelia 13.4 (11.5-14.5) % Plt Count 206 (130-400) K/uL MPV 10.5 (9.4-12.4) fL Immature Gran % (Auto) 0.4 % Neut % (Auto) 61.2 % Lymph % (Auto) 28.0 % Isabela % (Auto) 7.3 % Eos % (Auto) 2.1 % Baso % (Auto) 1.0 % Neut # (Auto) 6.84 H (1.40-6.50) K/uL Lymph # (Auto) 3.12 (1.20-3.40) K/uL Isabela # (Auto) 0.81 H (0.11-0.59) K/uL Eos # (Auto) 0.23 (0.00-0.50) K/uL Baso # (Auto) 0.11 (0.00-0.20) K/uL Immature Gran # (Auto) 0.04 (0.01-0.20) K/uL PT 11.1 (9.0-12.0) Seconds INR 1.0 (0.9-1.1) APTT 28 (21-31) Seconds PTT Ratio 1.0 D-Dimer 570 H* (0-500) ug/L FEU Heparin Anti-Xa, Unfract (0.3-0.7) IU/ml VBG pH 7.55 H (7.36-7.41) VBG pCO2 26 L (38-50) mmHg VBG pO2 62 mmHg VBG HCO3 23 mmol/L VBG O2 Saturation 95.6 % VBG Base Excess 1.6 mEq/L Sodium 134 L (136-145) mmol/L Potassium 4.2 (3.5-5.1) mmol/L Chloride 103 (98-107) mmol/L Carbon Dioxide 21 (21-32) mmol/L Anion Gap 10 (3-11) BUN 18 (6-23) mg/dl Creatinine 0.62 (0.6-1.4) mg/dl Est Cr Clr Drug Dosing 168.7 ml/min eGFR 113.58 BUN/Creatinine Ratio 29.0 H (10-20) Glucose 340 H* (70-99(Fasting)) mg/dl POC Glucose (70-99) mg/dl Estimat Average Glucose mg/dl Hemoglobin A1c (4.5-5.6) % Calcium 10.6 H (8.6-10.3) mg/dl Magnesium 1.9 (1.7-2.4) mg/dl Total Bilirubin (0.2-1.0) mg/dl Direct Bilirubin (0-0.2) mg/dl AST (13-39) U/L ALT (7-52) U/L Alkaline Phosphatase (34-104) U/L Troponin I High Sens 13.6 (0-20) pg/ml B-Natriuretic Peptide (0-100) pg/ml Total Protein (6.0-8.3) gm/dl Albumin (3.4-5.0) gm/dl Globulin (2.5-4.0) gm/dl Albumin/Globulin Ratio (0.9-2) Lipase 14 (11-82) U/L Medications Administered Current Inpatient Medications Acetaminophen (Acetaminophen 325 Mg Tab) 650 mg PO Q4H PRN PRN Reason: Pain or Fever Stop: 12/04/24 19:59 Last Admin: 11/05/24 12:03 Dose: 650 mg Aspirin (Aspirin 81 Mg Ectab) 81 mg PO DAILY [facility] Stop: 12/05/24 08:59 Last Admin: 11/05/24 09:02 Dose: 81 mg Atorvastatin Calcium (Atorvastatin 40 Mg Tab) 80 mg PO DAILY [facility] Stop: 12/05/24 08:59 Last Admin: 11/05/24 09:02 Dose: 80 mg Dextrose (Dextrose 50% 50 Ml Syringe) 25 - 50 ml IV UD PRN; Protocol PRN Reason: Hypoglycemia Protocol Stop: 12/04/24 16:23 Glucagon (Glucagon For Inj 1 Mg Vial) 1 mg SQ UD PRN; Protocol PRN Reason: Hypoglycemia Protocol Stop: 12/04/24 16:23 Glucose (Glucose 40% Gel 15 Gm Tube) 15 - 30 gm PO UD PRN; Protocol PRN Reason: Hypoglycemia Protocol Stop: 12/04/24 16:23 Glucose (Glucose 10 Tab/Tube) 4 - 8 tab PO UD PRN; Protocol PRN Reason: Hypoglycemia Protocol Stop: 12/04/24 16:23 Heparin Sodium/Dextrose (Heparin 51600 Unit/500 Ml D5w) 25,000 units in 500 mls @ 34 mls/hr IV .[id number] [facility]; Protocol Stop: 12/04/24 17:29 Last Admin: 11/05/24 09:57 Dose: 1,700 units/hr, 34 mls/hr Insulin Aspart (Insulin Aspart Per Unit Charge) 0 units SC ACHS [facility] Stop: 12/04/24 16:29 Last Admin: 11/05/24 11:56 Dose: 10 units Insulin Glargine (Lantus Per Unit Charge) 15 units SC ONE ONE Stop: 11/05/24 12:31 Lisinopril (Lisinopril 2.5 Mg Tab) 2.5 mg PO [facility] Stop: 12/05/24 08:59 Last Admin: 11/05/24 09:02 Dose: 2.5 mg Metoprolol Succinate (Metoprolol Succ 25mg Ext Rel Tab) [facility] Stop: 12/04/24 19:59 Last Admin: 11/05/24 09:02 Dose: 25 mg Miscellaneous (Carbohydrates For Hypoglycemia ) 15 - 30 gm PO UD PRN PRN Reason: Hypoglycemia Protocol Stop: 12/04/24 16:23 Miscellaneous Information (Pharmacy Glycemic Mgmt Consult) 1 each N/A UD PRN PRN Reason: Consult Stop: 12/04/24 16:23 Nitroglycerin (Nitroglycerin Sl 0.4 Mg/Tab Tab) 0.4 mg SL Q5M PRN PRN Reason: Chest Pain Stop: 12/04/24 13:30 Last Admin: 11/04/24 18:10 Dose: 0.4 mg Warfarin Sodium (Warfarin Sod 5 Mg Tab) 5 mg PO DAILY@1600 DEREK Stop: 12/05/24 15:59 (1) Chest pain Chest pain type: unspecified Qualified Code(s): R07.9 - Chest pain, unspecified
[2024-11-05] MEDS: LANTUS PER UNIT CHARGE SC ONE (12:34)
[2024-11-05] MEDS: HEPARIN SOD (PORCINE) 1000 UNIT/ML IV ONE (13:30)
[2024-11-05] MEDS: WARFARIN SOD 5 MG TAB PO SCH (16:52)
[2024-11-06 06:09] LABS: Hematocrit (blood only) 41.7 % (42.0-52.0); Hemoglobin 14.3 g/dl (14.0-18.0); Mean Corpuscular Hemoglobin 29.2 pg (25.0-34.0); Mean Corpuscular Hgb Conc 34.3 g/dL (32.0-36.0); Mean Corpuscular Volume 85.1 fL (80.0-100.0); Mean Platelet Volume 10.9 fL (9.4-12.4); Platelet Count 170 K/uL (130-400); RDW Coefficient of Variation 13.3 % (11.5-14.5); RDW Standard Deviation 41.5 fL (36.4-46.3); White Blood Count 9.94 K/ul (4.8-10.8)
[2024-11-06 06:18] LABS: Calcium 9.9 mg/dl (8.6-10.3); Magnesium 1.9 mg/dl (1.7-2.4); Potassium 4.1 mmol/L (3.5-5.1)
[2024-11-06 06:24] LABS: Creatinine Clr Calc Pharmacy 171.1 ml/min
[2024-11-06 06:32] LABS: ANTI-Xa, UFH(UnfractionatedHep 0.53 IU/ml (0.3-0.7); Prothrombin Time 11.2 Seconds (9.0-12.0)
[2024-11-06] MEDS: LANTUS PER UNIT CHARGE SQ SCH (08:26)
[2024-11-06] MEDS: OPTIRAY 320 125ml IV ONE (08:58)
--- NOTE | 2024-11-06 09:03 | CT Scan Report ---
CT head/brain wo con CLINICAL HISTORY: cva, vision change/ no periph. vision. TECHNIQUE: Multiple axial CT images of the head were obtained without contrast. A dose lowering tech nique was utilized adhering to the principles of ALARA. CT DOSE: 630.51 mGy.cm COMPARISON: 04/03/2018 FINDINGS: No intracranial hemorrhage seen. No mass effect, midline shift, or hydrocephalus. There is mucosal thickening in the maxillary sinuses. No mastoid effusion. No skull fracture seen. IMPRESSION: No acute findings. ACT 112: Negative or not required by law. The above report was generated using voice recognition software. It may contain grammatical, syntax o r spelling errors. Electronically signed by: Shayne Dial M.D. 11/06/2024 9:01 AM
--- NOTE | 2024-11-06 09:23 | CT Scan Report ---
CT ANGIOGRAPHY OF THE NECK WITH CONTRAST CLINICAL HISTORY: Stroke alert. Vision changes. COMPARISON STUDY: No previous studies for comparison. Technique: CT angiography of the carotid and vertebral arteries was obtained using [employer] and 3D rec onstruction on an independent workstation. NASCET criteria was utilized. Automated exposure control was utilized for the study. A dose lowering technique was utilized adhering to the principles of ALA RA. Findings: Visualized portions of the lung apices are unremarkable. Median sternotomy wires are partia lly imaged. There are no cervical spine fractures. There is no cervical lymphadenopathy. There is mod erate noncalcified plaque within the left common carotid artery which results in mild stenosis. There is moderate calcified and noncalcified plaque at the left carotid bifurcation without stenosis of th e left internal carotid artery. Right common carotid and internal carotid arteries are patent. There is mild noncalcified plaque within these vessels. The vertebral arteries are patent. There is no sten osis or dissection within these vessels. IMPRESSION: 1. No stenosis of the bilateral internal carotid or vertebral arteries. 2. Moderate noncalcified plaque within the left common carotid artery which results in mild long segm ent stenosis. 3. No dissection within the neck. ACT 112: Negative or not required by law. Electronically signed by: Fabiano Miranda M.D. 11/06/2024 9:21 AM
--- NOTE | 2024-11-06 09:32 | Hospitalist Progress Note ---
Date of Service November 06, 2024 Assessment & Plan (1) Chest pain: (2) CHF (congestive heart failure): (3) HFrEF (heart failure with reduced ejection fraction): (4) Hyperlipidemia: (5) Hypertension: (6) DM2 (diabetes mellitus, type 2): Plan The patient is a 54-year-old male who presented to the ED on with complaints of chest pain. Patient recently hospitalized in April 2024 with NSTEMI, s/p CABG, LV thrombus previously on warfarin/aspirin. Patient stopped taking his medications 2 months ago due to issues with affording medication Rule out ACS Hx CABG x3-2023 Hx LV thrombus Initial EKG without acute changes, Trop negative x 2, continue to trend Repeat echo, EKG in a.m., chest x-ray/chest CTA unremarkable Has been off of aspirin/warfarin x 2 months, INR subtherapeutic Initiated heparin drip on admission Echo - LV EF 50-55%, Septal motion is consistent w/ post-op state. There is a moderate sized apical and anteroseptal wall motion abnormality with hypokinesis to akinesis of the segments. Moderate sized LV apical thrombus. There is trace mitral regurg. - Cardiology consulted- - Resume GDMT - Aspirin 81 mg, atorvastatin 80 mg, metoprolol succinate 25 mg, lisinopril 2.5 mg daily. - cont IV heparin, coumadin resumed, monitor INR 11/06 stroke alert Initially contacted by RN pt had troubles w/ speech, on my eval, pt answers appropriately, speech fluent, no significant weakness in any extremities - some mild weakness in upper extremities b/l. no facial asymmetry. However pt reports peripheral vision loss (blurriness) in both eyes. Stroke alert called. Stat CT head, CTA head and neck ordered. [facility] [place] - pt on IV heparin - per Dr. Rollins will obtain brain MRI, will cont. IV heparin for now CT head - FINDINGS: No intracranial hemorrhage seen. No mass effect, midline shift, or hydrocephalus. There is mucosal thickening in the maxillary sinuses. No mastoid effusion. No skull fracture seen. IMPRESSION: No acute findings. CTA head and neck - IMPRESSION: 1. No arterial occlusion or high-grade stenosis. 2. 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 IMPRESSION: 1. No stenosis of the bilateral internal carotid or vertebral arteries. 2. Moderate noncalcified plaque within the left common carotid artery which results in mild long segment stenosis.3. No dissection within the neck. Brain MR pending Neurology consulted Hx DM2: Off oral diabetic medications as well as insulin for months. - Current A1c 10.3% - Lantus/SSI Glycemic pharmacy consulted Full code DVT prophylaxis: Heparin drip Admission and Anticipated Discharge Date Admission Date: November 04, 2024 Subjective Pt seen in follow up of chest pain hx of CAD s/p CABG, not taking meds for past 2 months hx of LV thrombus, currently on IV heparin Cardiology consulted This AM - contacted by RN pt had troubles w/ speech, on my eval, pt answers appropriately, speech fluent, no significant weakness in any extremities - some mild weakness in upper extremities b/l. no facial asymmetry. However pt reports peripheral vision loss in both eyes. Stroke alert called. Stat CT head, CTA head and neck ordered. [facility] [place] - pt on IV heparin - per Dr. Rollins will obtain brain MRI, will cont. IV heparin for now Pt currently denies chest pain - reported previously he has some w/ certain movements. Denies shortness of breath, dizziness, lightheadedness. Review of Systems Review of Systems: All systems reviewed & are unremarkable except as noted in Subjective Physical Exam Physical Exam: Constitutional: WD/WN, vitals as a renetta Eyes: conjunctivae jacobo l, anicteric scler ae,+peripheral vis ion loss (blurry) b/l ENMT: external ear and n ose normal Neck: supple Respiratory: normal respiratory effort, decreased breath sounds Cardiovascular: RRR, no murmur, no edema Gastrointestinal ( Abdomen): normal bowel sound s, soft, nontender Musculoskeletal: moves extremities Skin: no rashes, warm an d dry Neurologic: awake, alert, answ ers appropriately, EOMI, no face pal sy, no dysarthria, moves extremities Psychiatric: Orientation: ramez portillo x 3 Results & Data Results & Data Vital Signs (Past 12 Hours) Vital Signs Temp Pulse Pulse Resp BP BP Pulse Ox 11/06/24 09:13 69 16 121/72 95 11/06/24 07:25 36.7 C 66 18 109/77 98 11/06/24 02:54 36.8 C 65 20 97/66 L 97 11/05/24 23:39 68 11/05/24 22:49 36.4 C L 72 18 119/74 97 O2 Del Method 11/06/24 09:13 Room Air 11/06/24 07:25 Room Air 11/06/24 02:54 Room Air 11/05/24 23:39 11/05/24 22:49 Room Air Laboratory Results 11/06/24 11/06/24 11/05/24 Range/Units 07:23 05:35 19:40 WBC 9.94 (4.8-10.8) K/ul RBC 4.90 (4.70-6.10) M/uL Hgb 14.3 (14.0-18.0) g/dl Hct 41.7 L (42.0-52.0) % MCV 85.1 (80.0-100.0) fL MCH 29.2 (25.0-34.0) pg MCHC 34.3 (32.0-36.0) g/dL RDW Std Deviation 41.5 (36.4-46.3) fL RDW Coeff of Romelia 13.3 (11.5-14.5) % Plt Count 170 (130-400) K/uL MPV 10.9 (9.4-12.4) fL PT 11.2 (9.0-12.0) Seconds INR 1.0 (0.9-1.1) Heparin Anti-Xa, Unfract 0.53 (0.3-0.7) IU/ml Sodium 135 L (136-145) mmol/L Potassium 4.1 (3.5-5.1) mmol/L Chloride 106 (98-107) mmol/L Carbon Dioxide 23 (21-32) mmol/L Anion Gap 6 (3-11) BUN 18 (6-23) mg/dl Creatinine 0.62 (0.6-1.4) mg/dl Est Cr Clr Drug Dosing 171.1 ml/min eGFR 113.58 BUN/Creatinine Ratio 29.0 H (10-20) Glucose 202 H (70-99(Fasting)) mg/dl POC Glucose 266 H 185 H (70-99) mg/dl Calcium 9.9 (8.6-10.3) mg/dl Phosphorus 2.0 L (2.5-4.9) mg/dl Magnesium 1.9 (1.7-2.4) mg/dl 11/05/24 11/05/24 11/05/24 Range/Units 19:10 16:19 12:27 WBC (4.8-10.8) K/ul RBC (4.70-6.10) M/uL Hgb (14.0-18.0) g/dl Hct (42.0-52.0) % MCV (80.0-100.0) fL MCH (25.0-34.0) pg MCHC (32.0-36.0) g/dL RDW Std Deviation (36.4-46.3) fL RDW Coeff of Romelia (11.5-14.5) % Plt Count (130-400) K/uL MPV (9.4-12.4) fL PT (9.0-12.0) Seconds INR (0.9-1.1) Heparin Anti-Xa, Unfract 0.40 0.10 L (0.3-0.7) IU/ml Sodium (136-145) mmol/L Potassium (3.5-5.1) mmol/L Chloride (98-107) mmol/L Carbon Dioxide (21-32) mmol/L Anion Gap (3-11) BUN (6-23) mg/dl Creatinine (0.6-1.4) mg/dl Est Cr Clr Drug Dosing ml/min eGFR BUN/Creatinine Ratio (10-20) Glucose (70-99(Fasting)) mg/dl POC Glucose 193 H (70-99) mg/dl Calcium (8.6-10.3) mg/dl Phosphorus (2.5-4.9) mg/dl Magnesium (1.7-2.4) mg/dl 11/05/24 Range/Units 11:37 WBC (4.8-10.8) K/ul RBC (4.70-6.10) M/uL Hgb (14.0-18.0) g/dl Hct (42.0-52.0) % MCV (80.0-100.0) fL MCH (25.0-34.0) pg MCHC (32.0-36.0) g/dL RDW Std Deviation (36.4-46.3) fL RDW Coeff of Romelia (11.5-14.5) % Plt Count (130-400) K/uL MPV (9.4-12.4) fL PT (9.0-12.0) Seconds INR (0.9-1.1) Heparin Anti-Xa, Unfract (0.3-0.7) IU/ml Sodium (136-145) mmol/L Potassium (3.5-5.1) mmol/L Chloride (98-107) mmol/L Carbon Dioxide (21-32) mmol/L Anion Gap (3-11) BUN (6-23) mg/dl Creatinine (0.6-1.4) mg/dl Est Cr Clr Drug Dosing ml/min eGFR BUN/Creatinine Ratio (10-20) Glucose (70-99(Fasting)) mg/dl POC Glucose 233 H (70-99) mg/dl Calcium (8.6-10.3) mg/dl Phosphorus (2.5-4.9) mg/dl Magnesium (1.7-2.4) mg/dl Medications Administered Current Inpatient Medications Acetaminophen (Acetaminophen 325 Mg Tab) 650 mg PO Q4H PRN PRN Reason: Pain or Fever Stop: 12/04/24 19:59 Last Admin: 11/05/24 12:03 Dose: 650 mg Aspirin (Aspirin 81 Mg Ectab) 81 mg PO DAILY DEREK Stop: 12/05/24 08:59 Last Admin: 11/05/24 09:02 Dose: 81 mg Atorvastatin Calcium (Atorvastatin 40 Mg Tab) 80 mg PO DAILY DEREK Stop: 12/05/24 08:59 Last Admin: 11/05/24 09:02 Dose: 80 mg Dextrose (Dextrose 50% 50 Ml Syringe) 25 - 50 ml IV UD PRN; Protocol PRN Reason: Hypoglycemia Protocol Stop: 12/04/24 16:23 Glucagon (Glucagon For Inj 1 Mg Vial) 1 mg SQ UD PRN; Protocol PRN Reason: Hypoglycemia Protocol Stop: 12/04/24 16:23 Glucose (Glucose 40% Gel 15 Gm Tube) 15 - 30 gm PO UD PRN; Protocol PRN Reason: Hypoglycemia Protocol Stop: 12/04/24 16:23 Glucose (Glucose 10 Tab/Tube) 4 - 8 tab PO UD PRN; Protocol PRN Reason: Hypoglycemia Protocol Stop: 12/04/24 16:23 Heparin Sodium/Dextrose (Heparin 67201 Unit/500 Ml D5w) 25,000 units in 500 mls @ 38 mls/hr IV .[id number] [facility]; Protocol Stop: 12/04/24 17:29 Last Titration: 11/06/24 07:03 Dose: 1,900 units/hr, 38 mls/hr Insulin Aspart (Insulin Aspart Per Unit Charge) 0 units SC ACHS [facility] Stop: 12/04/24 16:29 Last Admin: 11/06/24 08:25 Dose: 19 units Insulin Glargine (Lantus Per Unit Charge) 20 units SQ DAILY [facility] Stop: 12/06/24 08:59 Last Admin: 11/06/24 08:26 Dose: 20 units Lisinopril (Lisinopril 2.5 Mg Tab) 2.5 mg PO [facility] Stop: 12/05/24 08:59 Last Admin: 11/05/24 09:02 Dose: 2.5 mg Metoprolol Succinate (Metoprolol Succ 25mg Ext Rel Tab) 25 mg PO [facility] Stop: 12/04/24 19:59 Last Admin: 11/05/24 09:02 Dose: 25 mg Miscellaneous (Carbohydrates For Hypoglycemia ) 15 - 30 gm PO UD PRN PRN Reason: Hypoglycemia Protocol Stop: 12/04/24 16:23 Miscellaneous Information (Pharmacy Glycemic Mgmt Consult) 1 each N/A UD PRN PRN Reason: Consult Stop: 12/04/24 16:23 Nitroglycerin (Nitroglycerin Sl 0.4 Mg/Tab Tab) 0.4 mg SL Q5M PRN PRN Reason: Chest Pain Stop: 12/04/24 13:30 Last Admin: 11/04/24 18:10 Dose: 0.4 mg Warfarin Sodium (Warfarin Sod 10 Mg Tab) 10 mg PO DAILY@1600 [facility] Stop: 12/06/24 15:59 (1) Chest pain Chest pain type: unspecified Qualified Code(s): R07.9 - Chest pain, unspecified (5) Hypertension Hypertension type: primary hypertension Qualified Code(s): I10 - Essential (primary) hypertension
--- NOTE | 2024-11-06 09:32 | CT Scan Report ---
CT angio head w con CLINICAL HISTORY: 54 years-old Male with stroke alert. Acute stroke like symptoms COMPARISON STUDY: Head CT of same day TECHNIQUE: Following the IV administration of 118 cc of Optiray, CT angiogram of the brain was perfor med from the skull base to the vertex. Images are reviewed in the axial, sagittal, and coronal planes . 3-D MIPS images are created and assessed. IV contrast was administered without complication. All me asurements were obtained according to NASCET criteria. A dose lowering technique was utilized adherin g to the principles of ALARA. CT DOSE: 556.94 mGy.cm FINDINGS: CT BRAIN: Dictated separately. CT ANGIOGRAM OF THE BRAIN: The imaged bilateral internal carotid arteries are patent. The bilateral anterior and middle cerebral arteries are also patent. 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 The vertebrobasilar system and posterior cerebral arteries are widely patent. There is no an eurysm, high-grade stenosis, or proximal branch occlusion identified. Dural sinuses appear patent. IMPRESSION: 1. No arterial occlusion or high-grade stenosis. 2. 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 ACT 112: Negative or not required by law. The above report was generated using voice recognition software. It may contain grammatical, syntax o r spelling errors. Electronically signed by: Niall Meyer M.D. 11/06/2024 9:31 AM
--- NOTE | 2024-11-06 10:24 | Magnetic Resonance Report ---
MR brain wo con HISTORY: 54 years-old Male cva acute strokelike symptoms COMPARISON: Head CT of same day TECHNIQUE: Multiplanar multisequence MRI of the brain was obtained without IV contrast FINDINGS: No restricted diffusion to suggest acute or subacute infarct. Study is mildly motion degraded. [place] e structures appear unremarkable. No acute intracranial hemorrhage, midline shift, abnormal extra axi al collection, hydrocephalus or intra-axial mass. There are a few minimal scattered foci of T2/FLAIR prolongation within the white matter which may represent early changes of chronic microvascular ische billy disease. The cerebral venous sinuses and major arterial flow voids appear patent. Skull and orbits are within normal limits. The mastoid air cells are clear. Volume loss with mucosal thickening of the maxillary sinuses. Right frontal scalp lipoma measures up to 3.6 cm. IMPRESSION: No acute intracranial abnormality. No acute or subacute infarct. ACT 112: Negative or not required by law. The above report was generated using voice recognition software. It may contain grammatical, syntax o r spelling errors. Electronically signed by: Niall Meyer M.D. 11/06/2024 10:22 AM
--- NOTE | 2024-11-06 10:31 | Electrocardiogram Report ---
Test Reason : Blood Pressure : */* mmHG Vent. Rate : 67 BPM Atrial Rate : 67 BPM P-R Int : 178 ms QRS Dur : 96 ms QT Int : 346 ms P-R-T Axes : 47 57 121 degrees QTcB Int : 365 ms Normal sinus rhythm Nonspecific T wave abnormality Abnormal ECG When compared with ECG of 05-Nov-2024 05:56, QT has shortened Confirmed by Jesus Villela ([id number]) on 11/06/2024 10:31:42 AM Referred By: REFERRED SELF Confirmed By: Jesus Villela
--- NOTE | 2024-11-06 11:29 | Cardiology Progress Note ---
Date of Service November 06, 2024 Assessment & Plan (1) Atypical chest pain: (2) Hypertension: (3) CAD (coronary artery disease): (4) LV (left ventricular) mural thrombus: (5) Non compliance w medication regimen: (6) Stroke-like symptoms: Plan 11/05/24 Patient admitted for atypical chest pain and SOB. Complex history of CABG x3 in Mar 2024, described above. Prior ischemic cardiomyopathy with LVEF 40% in Mar with LV mural thrombus. Admitted with CP/SOB with history of CAD -EKG initially demonstrated sinus tach with non specific ST/T wave abnormality. No acute ischemic changes. -HS troponin negative x4 since admission -Echo revealed improved LVEF at 55% compared to 40-45% in Mar 2024 -Resume GDMT - Aspirin 81 mg, atorvastatin 80 mg, metoprolol succinate 25 mg, lisinopril 2.5 mg daily. -Added nitro paste - Can discontinue at this time -his chest pain is reproducible with palpation to the chest wall, MSK component -Chest pain is non exertional -Could consider future outpatient ischemic work up with nuclear stress test if he has recurrent anginal symptoms. He denied recent exertional chest pain. History of Reduced LVEF/ischemic cardiomyopathy with LVEF 40-45%, now 55% -interval improvement in LVEF since CABG -continue guide line directed medical therapies -Likely would not afford Entresto. Continue lisinopril and metoprolol LV mural thrombus -evidence of LV thrombus on echo -This was present at time of CABG in Mar 2024 and he was started on Coumadin. -He was non compliant with Coumadin as an outpatient. -Started on IV heparin on admission -Resume oral Coumadin 5 mg daily -Daily PT/INR. Goal INR 2-3 -Stop heparin when INR is 2 or greater. Hypertension -BP uncontrolled on admission due to non compliance -resume metoprolol and lisinopril -D/C nitro oint. -titrate lisinopril as needed 11/06/24: Patient with acute visual disturbances this morning and intermittent expressive aphasia. Stroke alert called Imaging unremarkable including head CTA and brain MRI for acute stroke. He does have moderate left sided carotid stenosis, similar to past evaluation At time of evaluation, no speech deficits noted. Patient reporting ongoing peripheral vision loss b/l. Neuro consult pending. Recommend continuing ASA and IV heparin with bridge to coumadin given LV thrombus. Increase coumadin to 10 mg daily INR remains 1.0 today. Goal 2-3 Continue statin His chest pain is atypical for cardiac etiology. Reproducible with palpation to the chest wall suggesting MSK component. HS troponin negative since admission Echo with preserved LVEF. CAD -oral medications resumed including ASA, statin, metoprolol and lisinopril. Case discussed with Dr. Morris. I spent a total of 30 minutes on the date of service in preparation, delivery, and documentation of the care provided to this patient, excluding any time spent in the performance of separately billed services. Lolita Jackson PA-C Department of Cardiology, [facility] This chart was completed in part utilizing Speech Voice Recognition Software. Grammatical errors, random word insertions, pronoun errors, and incomplete sentences are an occasional consequence of this system due to software limitations, ambient noise, and hardware issues. Any formal questions or concern s about the content, text, or information contained within the body of this dictation should be directly addressed to the provider for clarification. Admission and Anticipated Discharge Date Admission Date: November 04, 2024 Supervising Physician Co-Signing Physician Notes I have personally performed a history and physical examination on the patient. I have reviewed the advance practitioner's documentation, and I agree with, and take responsibility for the plan of care. 54-year-old male with a history of coronary disease status post coronary artery bypass grafting March 2024 and left ventricular apical thrombus presents with atypical chest discomfort. Noncompliant with cardiovascular medications including warfarin for 2 months prior to hospitalization. Echocardiogram demonstrating apical LV thrombus. Stroke alert was called this morning due to visual disturbance and difficulties with speech. MRI negative for CVA. Neurology consultation reporting possible migraine rather than TIA/CVA. Echocardiogram reveals presence of an AV apical thrombus and apical akinesis. Overall LV systolic function has improved when compared to echocardiogram of March 2024. Recommendations: * Cardiovascular medications restarted including lisinopril, metoprolol, atorvastatin, aspirin, and warfarin. * Continue IV heparin until INR 2.0 or greater * Stroke-like symptom evaluation/management as per neurology I spent a total of 30 minutes on the date of service in preparation, delivery, and documentation of the care provided to this patient, excluding any time spent in the performance of separately billed services. Brady Morris DO, FACC Subjective Per nursing staff, patient was doing well, eating breakfast and taking his meds this morning. Upon recheck about 30 minutes later patient had intermittent expressive aphasia and reported b/l peripheral vision loss. Stroke alert called. he mentioned right hand tingling and weakness. Transferred to ICU for evaluation/treatment. Head/neck CTA without acute findings. He has moderate left sided carotid stenosis. Brain MRI negative. He remains on IV heparin. At time of evaluation, his speech has improved. No deficits. Able to move his right hand without weakness. Still has peripheral vision loss b/l. No SOB. No palpitations. He notes mild chest pain, again reproducible with palpation to the chest wall. Review of Systems Review of Systems: All systems reviewed & are unremarkable except as noted in HPI & below Physical Exam Constitutional: WD/WN, vitals as above average body habitus; no acute distress Neck: trachea midline, no thyromegaly normal visual inspection Respiratory: normal respiratory effort Cardiovascular: Rate/Rhythm: regular rate and regular rhythm Heart Sounds: normal S1 and normal S2; no murmur Vessels: no JVD Extremities: no edema Gastrointestinal (Abdomen): normal bowel sounds, soft, nontender, no hepatosplenomegaly Neurologic: PERRL, EOMI, accommodation nl, no face palsy, no dysarthria Results & Data Vital Signs (Past 12 Hours) Vital Signs Temp Pulse Pulse Resp BP BP Pulse Ox 11/06/24 10:50 36.8 C 67 18 135/79 96 11/06/24 10:25 68 16 121/70 95 11/06/24 09:13 69 16 121/72 95 11/06/24 07:25 36.7 C 66 18 109/77 98 11/06/24 02:54 36.8 C 65 20 97/66 L 97 11/05/24 23:39 68 O2 Del Method 11/06/24 10:50 Room Air 11/06/24 10:25 Room Air 11/06/24 09:13 Room Air 11/06/24 07:25 Room Air 11/06/24 02:54 Room Air 11/05/24 23:39 Laboratory Results Coagulation 11/06/24 Range/Units 05:35 PT 11.2 (9.0-12.0) Seconds CBC 11/06/24 Range/Units 05:35 WBC 9.94 (4.8-10.8) K/ul RBC 4.90 (4.70-6.10) M/uL Hgb 14.3 (14.0-18.0) g/dl Hct 41.7 L (42.0-52.0) % Plt Count 170 (130-400) K/uL Comprehensive Metabolic Panel 11/06/24 Range/Units 05:35 Sodium 135 L (136-145) mmol/L Potassium 4.1 (3.5-5.1) mmol/L Chloride 106 (98-107) mmol/L Carbon Dioxide 23 (21-32) mmol/L BUN 18 (6-23) mg/dl Creatinine 0.62 (0.6-1.4) mg/dl Glucose 202 H (70-99(Fasting)) mg/dl Calcium 9.9 (8.6-10.3) mg/dl Intake and Output 11/05/24 11/06/24 11/06/24 22:59 06:59 14:59 Intake Total 1134.467 / 2841.733 634.833 / 2841.733 524.367 / 524.367 Balance 1134.467 / 2841.733 634.833 / 2841.733 524.367 / 524.367 Intake: IV 244.467 / 611.733 134.833 / 611.733 284.367 / 284.367 Heparin 09290 Unit/500 ml D5w 244.467 / 611.733 134.833 / 611.733 284.367 / 284.367 25,000 units In 500 ml @ 1,900 UNITS/HR 38 mls/hr IV .[id number] DEREK Rx#:[id number] Oral 890 / 2230 500 / 2230 240 / 240 Other: # Unmeasured Voids 1 2 1 Weight 109.1 kg Weight Measurement Method Built in [facility] Diagnostic Findings Telemetry reviewed: NSR, no arrhythmias overnight or this morning. EKG this morning, 11/06/24: NSR, non specific T wave abnormality No acute changes Echo yesterday reviewed: Normal LVEF at 50-55% Moderate sized apical and anteroseptal wall motion abnormality with hypokinesis to akinesis of the segments. Moderate LV apical thrombus Trace MR Head CT 11/06/24 08:40 CT head/brain wo con CLINICAL HISTORY: cva, vision change/ no periph. vision. TECHNIQUE: Multiple axial CT images of the head were obtained without contrast. A dose lowering technique was utilized adhering to the principles of ALARA. CT DOSE: 630.51 mGy.cm COMPARISON: 04/03/2018 FINDINGS: No intracranial hemorrhage seen. No mass effect, midline shift, or hydrocephalus. There is mucosal thickening in the maxillary sinuses. No mastoid effusion. No skull fracture seen. IMPRESSION: No acute findings. ACT 112: Negative or not required by law. The above report was generated using voice recognition software. It may contain grammatical, syntax or spelling errors. Electronically signed by: Shayne Dial M.D. 11/06/2024 9:01 AM Head CTA 11/06/24 08:47 CT angio head w con CLINICAL HISTORY: 54 years-old Male with stroke alert. Acute stroke like symptoms COMPARISON STUDY: Head CT of same day TECHNIQUE: Following the IV administration of 118 cc of Optiray, CT angiogram of the brain was performed from the skull base to the vertex. Images are reviewed in the axial, sagittal, and coronal planes. 3-D MIPS images are created and assessed. IV contrast was administered without complication. All measurements were obtained according to NASCET criteria. A dose lowering technique was utilized adhering to the principles of ALARA. CT DOSE: 556.94 mGy.cm FINDINGS: CT BRAIN: Dictated separately. CT ANGIOGRAM OF THE BRAIN: The imaged bilateral internal carotid arteries are patent. The bilateral anterior and middle cerebral arteries are also patent. 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 The vertebrobasilar system and posterior cerebral arteries are widely patent. There is no aneurysm, high-grade stenosis, or proximal branch occlusion identified. Dural sinuses burke ear patent. IMPRESSION: 1. No arterial occlusion or high-grade stenosis. 2. 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 ACT 112: Negative or not required by law. The above report was generated using voice recognition software. It may contain grammatical, syntax or spelling errors. Electronically signed by: Niall Meyer M.D. 11/06/2024 9:31 AM Neck CTA 11/06/24 08:47 CT ANGIOGRAPHY OF THE NECK WITH CONTRAST CLINICAL HISTORY: Stroke alert. Vision changes. COMPARISON STUDY: No previous studies for comparison. Technique: CT angiography of the carotid and vertebral arteries was obtained using [employer] and 3D reconstruction on an independent workstation. NASCET criteria was utilized. Automated exposure control was utilized for the study. A dose lowering technique was utilized adhering to the principles of ALARA. Findings: Visualized portions of the lung apices are unremarkable. Median sternotomy wires are partially imaged. There are no cervical spine fractures. There is no cervical lymphadenopathy. There is moderate noncalcified plaque within the left common carotid artery which results in mild stenosis. There is moderate calcified and noncalcified plaque at the left carotid bifurcation without stenosis of the left internal carotid artery. Right common carotid and internal carotid arteries are patent. There is mild noncalcified plaque within these vessels. The vertebral arteries are patent. There is no stenosis or dissection within these vessels. IMPRESSION: 1. No stenosis of the bilateral internal carotid or vertebral arteries. 2. Moderate noncalcified plaque within the left common carotid artery which results in mild long segment stenosis. 3. No dissection within the neck. ACT 112: Negative or not required by law. Electronically signed by: Fabiano Miranda M.D. 11/06/2024 9:21 AM Brain MRI 11/06/24 09:13 MR brain wo con HISTORY: 54 years-old Male cva acute strokelike symptoms COMPARISON: Head CT of same day TECHNIQUE: Multiplanar multisequence MRI of the brain was obtained without IV contrast FINDINGS: No restricted diffusion to suggest acute or subacute infarct. Study is mildly motion degraded. Midline structures appear unremarkable. No acute intracranial hemorrhage, midline shift, abnormal extra axial collection, hydrocephalus or intra-axial mass. There are a few minimal scattered foci of T2/FLAIR prolongation within the white matter which may represent early changes of chronic microvascular ischemic disease. The cerebral venous sinuses and major arterial flow voids appear patent. Skull and orbits are within normal limits. The mastoid air cells are clear. Volume loss with mucosal thickening of the maxillary sinuses. Right frontal scalp lipoma measures up to 3.6 cm. IMPRESSION: No acute intracranial abnormality. No acute or subacute infarct. ACT 112: Negative or not required by law. The above report was generated using voice recognition software. It may contain grammatical, syntax or spelling errors. Electronically signed by: Niall Meyer M.D. 11/06/2024 10:22 AM (2) Hypertension Hypertension type: primary hypertension Qualified Code(s): I10 - Essential ( primary) hypertension (3) CAD (coronary artery disease) Associated angina: unspecified whether angina present Coronary Disease- Associated Artery/Lesion type: [place] artery [place] vs. transplanted heart: [place] heart Qualified Code(s): I25.10 - Atherosclerotic heart disease of [place] coronary artery without angina pectoris
--- NOTE | 2024-11-06 11:34 | Pharmacy Report ---
Pharmacy Glycemic Short Note 2 - Date of Service November 06, 2024 - Glycemic Short BSG Results (Last 24 hours): 11/05/24 11/05/24 11/05/24 11:37 16:19 19:40 Glucose POC Glucose 233 H 193 H 185 H 11/06/24 11/06/24 11/06/24 05:35 07:23 11:15 Glucose 202 H POC Glucose 266 H 114 H OUTPATIENT ANTIDIABETIC REGIMEN: * Lantus prescribed but reportedly has not been using HbA1c: 10.3% on 11/05/24, previous HbA1c from 03/30/24 was 10.9% ASSESSMENT: 11/06 * Isael received a total of 44 units of insulin yesterday (15 units were basal and 29 units were bolus). BSGs were still above goal ([phone]/dL) * Fasting BSG was 266mg/dL. Lantus dose was increased and CR was tightened for the bolus insulin. 11/05 * 54 year old male admitted yesterday with chest pain. Pharmacy has been consulted for glycemic management while he is admitted. * Patient reportedly has not been taking any of his medications for at least the last few months (including his hyperglycemic medications). BSG on admit was 274mg/dL. Lantus 15 units SQ x 1 was ordered and a weight based bolus insulin regimen with a stress of 2 was started. * Fasting BSG was 214mg/dL this morning. Patient was NPO so did not immediately give a dose of basal insulin. BSG kamila to 233mg/dL at lunch and diet was started so an additional dose of Lantus 15 units SQ x 1 was ordered for today. The bolus insulin regimen will be continued without change but the upper end of the BSG goal range was decreased. PLAN FOR INPATIENT GLYCEMIC CONTROL: * Basal insulin * Lantus 20 units SQ x 1 * Bolus insulin * NovoLog per scale ACHS or Q6hrs while NPO * Goal Range: Low 120 mg/dL - High 150 mg/dL * Correction Factor: 20 mg/dL/unit * Nutritional / Prandial insulin per carb ratio of 1 unit per 7 grams CHO consumed
--- NOTE | 2024-11-06 13:01 | Neurology Consultation ---
Date of Consultation November 06, 2024 Assessment & Plan (1) Stroke-like symptoms: With visual changes inconsistent for a single visual field. Suspect a functional component low suspicion for seizures or migraine MRI of the brain is negative. CTA did not show any Significant occlusions of the patient has kept hemodynamic stability Plan No contraindication to continue heparin. Can transition to warfarin Consider intrinsic eye exam rule out microhemorrhages although less likely. Follow-up clinically and consider repeating MRI of the brain if symptoms do not improve Telehealth Consultation Telehealth Information Telehealth Information: I performed this visit using a real-time telehealth connection between my location and the patients location ([facility]). After connecting through interactive tele-video, patient was identified by name and date of and/or wristband check.Patient (or authorized healthcare insurance claims representative) was informed that this was a telemedicine visit and it was being conducted confidentially over secure lines. My office door was closed and no one else was present in the room with me.Patient (or authorized healthcare insurance claims representative) provided consent to proceed with the visit, expressed an understanding of privacy and security of the telemedicine visit, and gave permission to have a hospital insurance claims representative in the room in order to assist with the visit and to conduct portions of the visit, as needed. I informed the patient (or authorized healthcare insurance claims representative) that I reviewed their record and presented the opportunity for them to ask any questions regarding the visit today. The patient agreed to participate. History of Present Illness Reason for Consultation: visual changes, stroke , like symptoms Requesting Physician: Russell Bauman MD Attending Physician: Russell Bauman MD History of Present Illness Mr Gasper Kirkland is a 54-year-old male patient with PMH of morbid obesity type II DM ,HLP, tobacco abuse,,history of CAD , s/p CABG with LV thrombus in April 2024 for which the patient was on aspirin and warfarin. He has not taken his medications due to issues affording his medications. On he presented to the hospital with chest pain with no evidence of HI, with echocardiogram showing improvement in wall motion abnormalities however there was a moderate-sized LV apical thrombus and trace mitral regurgitation on 425 today a stroke alert was called because the patient reported speech changes so stroke alert was called with initial NIH stroke scale being 4 for visual changes, left leg drift. Upon my evaluation the patient's only report was visual changes. He said he could not see with his peripheral vision more so to the right side, he reports this is still consistent, he reports that the sites that he does not see are black. Visual field testing was done by the help of his RN, done separately with each eye. The patient denies any numbness or weakness except for shoulder pain and numbness that is chronic, no any headache, denied any history of similar events. Allergies Allergy/AdvReac Type Severity Reaction Status Date / Time No Known Allergies Allergy Unverified 06/28/21 09:11 Home Medications Medication Instructions Recorded Confirmed Type blood sugar diagnostic (ClickEquationsTouch #50 ea 09/06/20 04/03/24 Rx Verio test strips) blood-glucose meter (OneTouch #1 ea 09/06/20 04/03/24 Rx Verio Flex Start kit) lancets 33 gauge (OneTouch Delica #100 ea 09/06/20 04/03/24 Rx Lancets) aspirin 81 mg tablet,delayed 81 mg PO UD 11/04/24 11/04/24 History release atorvastatin 40 mg tablet 40 mg PO UD 11/04/24 11/04/24 History carvedilol 3.125 mg tablet 3.125 mg PO UD 11/04/24 11/04/24 History empagliflozin 10 mg tablet 10 mg PO UD 11/04/24 11/04/24 History (Jardiance) furosemide 20 mg tablet 20 mg PO UD 11/04/24 11/04/24 History insulin glargine 100 unit/mL 10 unit subcut UD 11/04/24 11/04/24 History subcutaneous solution (Lantus U-100 Insulin) sacubitril 24 mg-valsartan 26 mg 1 tab PO UD 11/04/24 11/04/24 History tablet (Entresto) Patient History Medical History Medical non-compliance Chronic low back pain Diabetes mellitus Scabies Surgical History No history of previous surgery Family History Denies family history of Ovarian cancer Prostate cancer Myocardial infarction Breast cancer Colorectal cancer Social History Smoking Status: Former smoker Tobacco Type: Cigarettes Age Started Using Tobacco: 30; Age Quit Using Tobacco: 50; packs per day: 2; Cigarettes Per Day: 40; Second Hand Exposure: No; Do You Dip or Chew Tobacco: No; Hx Alcohol Use: No Hx Substance Use: No Preferred Language: Brazilian Communication Ability: Effective Visual Impairment: No Limitations Hearing Ability: Normal Paver Operator Required: No Beliefs That Will Affect Care: None marital status: Single Current Living Situation: Alone current occupational status: employed current occupation: [employer] Other Information That Helps Us Care for You: No Feels Safe at Home: Yes Safety Concerns: Feels Safe At This Time Childhood Exposure to Second-Hand Smoke: Yes Diet: regular caffeine: No during the past year weight has: decreased > 10 lbs Dental Care, Regularly: Yes Physical Activity Frequency: Daily Sunscreen Use: No Assistive Devices: None Review of Systems Negative except for the points mentioned in the HPI Physical Exam General Constitutional: Appearance normally developed Head and face: normocephalic and atraumatic Eyes: no ptosis, no anisocoria, and no dysconjugate gaze Respiratory: normal effort Cardiovascular: regular rhythm and regular rate Abdomen: non distended Skin: no rashes, lesions, or ulcers noted Psychiatric: normal judgement and insight, normal mood, and normal affect NEUROLOGIC EXAMINATION: Mental Status:alert, oriented to time, place, person, normal recent memory, normal remote memory, normal attention span, normal concentration, normal language and normal fund of knowledge Cranial Nerves: CN 2 -visual field testing done separately with each eye, inconsistent with a visual field deficit except right upper visual field ,however this was inconsistent with testing CN 3, 4, 6 - extra-ocular movements intact and no nystagmus CN 5 - facial sensation intact CN 7 - no facial asymmetry CN 8 - intact hearing CN 9, 10 - palate symmetric, normal gag CN 11 - good shoulder shrug CN 12 - tongue midline MOTOR: Strength was at least antigravity throughout, Pronator drift was absent and There were no abnormal movements SENSATION: intact and symmetric to pinprick, light touch, vibration and joint position GAIT: stable, no ataxia and can perform tandem walking COORDINATION: no ataxia with finger to nose testing and heel to valdivia testing REFLEXES: cannot assess over telemedicine NIH Stroke Scale: 1a. Level of Consciousness: alert = 0 1b. LOC Questions: (month, age): both correct = 0 1c. LOC Commands (open and close eyes, make fist and let go using non-paretic hand): obeys both correctly = 0 2. Best Gaze (eyes open and patient follows examiner's finger or face): normal = 0 3. Visual (visual threat or finger counting in each quadrant): partial visual field loss = 1 4. Facial Palsy (show teeth, raise eye brows and squeeze eyes shut, or grimace symmetry in a comatose patient): normal = 0 5a. Motor Arm (extend arm (palms down) to 90 degrees and score drift/movement (10 seconds) - Left: no drift = 0 5b. Motor Arm: (extend arm (palms down) to 90 degrees and score drift/movement (10 seconds) - Right: no drift = 0 6a. Motor Leg (elevate leg 30 degrees and score drift/ movement (5 seconds) - Left: no drift = 0 6b. Motor Leg (elevate leg 30 degrees and score drift/ movement (5 seconds) - Right: no drift = 0 7. Limb Ataxia (finger to nose, heel down valdivia): absent = 0 8. Sensory (pin prick to face, arm, trunk and leg, compare side to side): normal = 0 9. Best Language: no aphasia = 0 10. Dysarthria (evaluate speech clarity by patient repeating listed words): normal articulation = 0 11. Extinction and Inattention: no neglect = 0 Total: 1 Results & Data Vital Signs (Past 12 Hours) Vital Signs Temp Pulse Pulse Resp BP BP Pulse Ox 11/06/24 12:34 63 11/06/24 10:50 36.8 C 67 18 135/79 96 11/06/24 10:25 68 16 121/70 95 11/06/24 09:13 69 16 121/72 95 11/06/24 08:35 72 16 134/77 93 11/06/24 07:25 36.7 C 66 18 109/77 98 11/06/24 02:54 36.8 C 65 20 97/66 L 97 O2 Del Method 11/06/24 12:34 11/06/24 10:50 Room Air 11/06/24 10:25 Room Air 11/06/24 09:13 Room Air 11/06/24 08:35 Room Air 11/06/24 07:25 Room Air 11/06/24 02:54 Room Air Laboratory Results Laboratory Results - last 24 hr 11/05/24 11/05/24 11/05/24 12:27 16:19 19:10 WBC RBC Hgb Hct MCV MCH MCHC RDW Std Deviation RDW Coeff of Romelia Plt Count MPV PT INR Heparin Anti-Xa, Unfract 0.10 L 0.40 Sodium Potassium Chloride Carbon Dioxide Anion Gap BUN Creatinine Est Cr Clr Drug Dosing eGFR BUN/Creatinine Ratio Glucose POC Glucose 193 H Calcium Phosphorus Magnesium 11/05/24 11/06/24 11/06/24 19:40 05:35 07:23 WBC 9.94 RBC 4.90 Hgb 14.3 Hct 41.7 L MCV 85.1 MCH 29.2 MCHC 34.3 RDW Std Deviation 41.5 RDW Coeff of Romelia 13.3 Plt Count 170 MPV 10.9 PT 11.2 INR 1.0 Heparin Anti-Xa, Unfract 0.53 Sodium 135 L Potassium 4.1 Chloride 106 Carbon Dioxide 23 Anion Gap 6 BUN 18 Creatinine 0.62 Est Cr Clr Drug Dosing 171.1 eGFR 113.58 BUN/Creatinine Ratio 29.0 H Glucose 202 H POC Glucose 185 H 266 H Calcium 9.9 Phosphorus 2.0 L Magnesium 1.9 11/06/24 11:15 WBC RBC Hgb Hct MCV MCH MCHC RDW Std Deviation RDW Coeff of Romelia Plt Count MPV PT INR Heparin Anti-Xa, Unfract Sodium Potassium Chloride Carbon Dioxide Anion Gap BUN Creatinine Est Cr Clr Drug Dosing eGFR BUN/Creatinine Ratio Glucose POC Glucose 114 H Calcium Phosphorus Magnesium Diagnostic Findings MRI of the brain showed no acute diffusion restriction to account for acute ischemia. No structural normalities within both occipital lobes, or the rest of the brain. No evidence of bleeding CTA of the head and neck showed scattered atherosclerotic disease. CT scan of the head showed no acute abnormalities Medications Administered Home Medications Medication Instructions Recorded Confirmed Last Taken blood sugar diagnostic (ClickEquationsTouch #50 ea 09/06/20 04/03/24 Unknown Verio test strips) blood-glucose meter (Zipwhipuch #1 ea 09/06/20 04/03/24 Unknown Verio Flex Start kit) lancets 33 gauge (ClickEquationsTouch Delica #100 ea 09/06/20 04/03/24 Unknown Lancets) aspirin 81 mg tablet,delayed 81 mg PO UD 11/04/24 11/04/24 Unknown release atorvastatin 40 mg tablet 40 mg PO UD 11/04/24 11/04/24 Unknown carvedilol 3.125 mg tablet 3.125 mg PO UD 11/04/24 11/04/24 Unknown empagliflozin 10 mg tablet 10 mg PO UD 11/04/24 11/04/24 Unknown (Jardiance) furosemide 20 mg tablet 20 mg PO UD 11/04/24 11/04/24 Unknown insulin glargine 100 unit/mL 10 unit subcut UD 11/04/24 11/04/24 Unknown subcutaneous solution (Lantus U-100 Insulin) sacubitril 24 mg-valsartan 26 mg 1 tab PO UD 11/04/24 11/04/24 Unknown tablet (Entresto) Active Medications Generic Name Dose Route Start Last Admin Trade Name Freq PRN Reason Stop Dose Admin Acetaminophen 650 mg 11/04/24 20:00 11/06/24 13:03 Acetaminophen 325 Mg Tab PO 12/04/24 19:59 650 mg Q4H PRN Administration Pain or Fever Aspirin 81 mg 11/05/24 09:00 11/06/24 11:25 Aspirin 81 Mg Ectab PO 12/05/24 08:59 81 mg DAILY DEREK Administration Atorvastatin Calcium 80 mg 11/05/24 09:00 11/06/24 11:25 Atorvastatin 40 Mg Tab PO 12/05/24 08:59 80 mg DAILY DEREK Administration Heparin Sodium/Dextrose 25,000 units in 500 mls @ 38 mls/hr 11/04/24 17:30 11/06/24 12:56 Heparin 57038 Unit/500 Ml D5w IV 12/04/24 17:29 1,900 units/hr .[id number] DEREK 38 mls/hr Administration Protocol 1,900 UNITS/HR Insulin Aspart 0 units 11/04/24 16:30 11/06/24 11:34 Insulin Aspart Per Unit Charge SC 12/04/24 16:29 4 units ACHS DEREK Administration Insulin Glargine 20 units 11/06/24 09:00 11/06/24 08:26 Lantus Per Unit Charge SQ 12/06/24 08:59 20 units DAILY DEREK Administration Lisinopril 2.5 mg 11/05/24 09:00 11/06/24 11:25 Lisinopril 2.5 Mg Tab PO 12/05/24 08:59 2.5 mg QAM DEREK Administration Metoprolol Succinate 25 mg 11/04/24 20:00 11/06/24 11:25 Metoprolol Succ 25mg Ext Rel Tab PO 12/04/24 19:59 25 mg QAM DEREK Administration Nitroglycerin 0.4 mg 11/04/24 13:31 11/04/24 18:10 Nitroglycerin Sl 0.4 Mg/Tab Tab SL 12/04/24 13:30 0.4 mg Q5M PRN Administration Chest Pain ECG Additional Comments: NSR
--- NOTE | 2024-11-06 13:38 | Neurology Consultation ---
Date of Consultation November 06, 2024 Assessment & Plan (1) Stroke-like symptoms: Suspected to be related to migraine rather than a TIA, MRI of the brain shows no evidence of prior embolic events. CTA showed no significant atherosclerotic disease Plan Can continue aspirin 81 mg for now, low-dose statin adjusted to LDL. Recommend magnesium glycinate 400 mg daily at bedtime or as needed. 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 After connecting through interactive tele-video, patient was identified by name and date of and/or wristband check.Patient (or authorized healthcare business services sales representative) was informed that this was a telemedicine visit and it was being conducted confidentially over secure lines. My office door was closed and no one else was present in the room with me.Patient (or authorized healthcare business services sales representative) provided consent to proceed with the visit, expressed an understanding of privacy and security of the telemedicine visit, and gave permission to have a hospital business services sales representative in the room in order to assist with the visit and to conduct portions of the visit, as needed. I informed the patient (or authorized healthcare business services sales representative) that I reviewed their record and presented the opportunity for them to ask any questions regarding the visit today. The patient agreed to participate. History of Present Illness Reason for Consultation: Stroke-like symptoms Requesting Physician: Russell Bauman MD Attending Physician: Russell Bauman MD History of Present Illness 45-year-old female patient with PMH of anxiety and depression, history of panic attacks in addition to obesity. Who presented to the hospital yesterday with acute onset of chest pain and shortness of breath that was brief followed by numbness and tingling affecting the left side of the face. Workup has been negative so far. She does me that her symptoms are still present, she does not have the chest pain or the shortness of breath has been resolved since she came to the emergency room however she still feels tingling in the left side of her face in the form of hyperesthesia, which she feels when she touches the face. She denies any weakness or numbness today , however yesterday she felt that her left side felt numb. She denies any visual chages, denies any speech changes.denies any dizziness or gait changes. Allergies Allergy/AdvReac Type Severity Reaction Status Date / Time No Known Allergies Allergy Unverified 06/28/21 09:11 Home Medications Medication Instructions Recorded Confirmed Type blood sugar diagnostic (Verge SolutionsTouch #50 ea 09/06/20 04/03/24 Rx Verio test strips) blood-glucose meter ([employer]ge SolutionsTouch #1 ea 09/06/20 04/03/24 Rx Verio Flex Start kit) lancets 33 gauge (OneTouch Delica #100 ea 09/06/20 04/03/24 Rx Lancets) aspirin 81 mg tablet,delayed 81 mg PO UD 11/04/24 11/04/24 History release atorvastatin 40 mg tablet 40 mg PO UD 11/04/24 11/04/24 History carvedilol 3.125 mg tablet 3.125 mg PO UD 11/04/24 11/04/24 History empagliflozin 10 mg tablet 10 mg PO UD 11/04/24 11/04/24 History (Jardiance) furosemide 20 mg tablet 20 mg PO UD 11/04/24 11/04/24 History insulin glargine 100 unit/mL 10 unit subcut 11/04/24 11/04/24 History subcutaneous solution (Lantus U-100 Insulin) sacubitril 24 mg-valsartan 26 mg 1 tab PO UD 11/04/24 11/04/24 History tablet (Entresto) Patient History Medical History Medical non-compliance Chronic low back pain Diabetes mellitus Scabies Surgical History No history of previous surgery Family History Denies family history of Ovarian cancer Prostate cancer Myocardial infarction Breast cancer Colorectal cancer Social History Smoking Status: Former smoker Tobacco Type: Cigarettes Age Started Using Tobacco: 30; Age Quit Using Tobacco: 50; packs per day: 2; Cigarettes Per Day: 40; Second Hand Exposure: No; Do You Dip or Chew Tobacco: No; Hx Alcohol Use: No Hx Substance Use: No Preferred Language: Mongolian Communication Ability: Effective Visual Impairment: No Limitations Hearing Ability: Normal [employer] Required: No Beliefs That Will Affect Care: None marital status: Single Current Living Situation: Alone current occupational status: employed current occupation: [employer] Other Information That Helps Us Care for You: No Feels Safe at Home: Yes Safety Concerns: Feels Safe At This Time Childhood Exposure to Second-Hand Smoke: Yes Diet: regular caffeine: No during the past year weight has: decreased > 10 lbs Dental Care, Regularly: Yes Physical Activity Frequency: Daily Sunscreen Use: No Assistive Devices: None Review of Systems Constitutional: Patient denies weight loss, fever, chills, and night sweats Eyes: Patient denies change in vision, tearing, pain, and redness ENT: Patient denies pain, bleeding, rhinorrhea, and dysphagia Cardiovascular:+, palpitation, dyspnea at rest, + dyspnea with exertion Respiratory: Patient denies shortness of breath, cough, wheezing, and productive cough GI: Patient denies reflux, pain, constipation, and diarrhea Skin: Patient denies rash, dryness, and itching Allergies/Immune System: Patient denies rhinorrhea, seasonal allergies, reaction to current MEDS, and joint swelling Endocrine: Patient denies weight loss, weight gain, temperature intolerance, and excessive thirst Neurological: All negative unless mentioned in the HPI Physical Exam General Constitutional: Appearance normally developed Head and face: normocephalic and atraumatic Eyes: no ptosis, no anisocoria, and no dysconjugate gaze Respiratory: normal effort Cardiovascular: regular rhythm and regular rate Abdomen: non distended Skin: no rashes, lesions, or ulcers noted Psychiatric: normal judgement and insight, normal mood, and normal affect NEUROLOGIC EXAMINATION: Mental Status:alert, oriented to time, place, person, normal recent memory, normal remote memory, normal attention span, normal concentration, normal language and normal fund of knowledge Cranial Nerves: CN 2 - no visual defect on confrontation and pupils round, equal, reactive to light CN 3, 4, 6 - extra-ocular movements intact and no nystagmus CN 5 - facial sensation intact CN 7 - no facial asymmetry CN 8 - intact hearing CN 9, 10 - palate symmetric, normal gag CN 11 - good shoulder shrug CN 12 - tongue midline MOTOR: Strength was at least antigravity throughout, Pronator drift was absent and There were no abnormal movements SENSATION: intact and symmetric to pinprick, light touch, vibration and joint position GAIT: stable, no ataxia and can perform tandem walking COORDINATION: no ataxia with finger to nose testing and heel to valdivia testing REFLEXES: cannot assess over telemedicine NIH Stroke Scale: 1a. Level of Consciousness: alert = 0 1b. LOC Questions: (month, age): both correct = 0 1c. LOC Commands (open and close eyes, make fist and let go using non-paretic hand): obeys both correctly = 0 2. Best Gaze (eyes open and patient follows examiner's finger or face): normal = 0 3. Visual (visual threat or finger counting in each quadrant): no loss = 0 4. Facial Palsy (show teeth, raise eye brows and squeeze eyes shut, or grimace symmetry in a comatose patient): normal = 0 5a. Motor Arm (extend arm (palms down) to 90 degrees and score drift/movement (10 seconds) - Left: no drift = 0 5b. Motor Arm: (extend arm (palms down) to 90 degrees and score drift/movement (10 seconds) - Right: no drift = 0 6a. Motor Leg (elevate leg 30 degrees and score drift/ movement (5 seconds) - Left: no drift = 0 6b. Motor Leg (elevate leg 30 degrees and score drift/ movement (5 seconds) - Right: no drift = 0 7. Limb Ataxia (finger to nose, heel down valdivia): absent = 0 8. Sensory (pin prick to face, arm, trunk and leg, compare side to side): normal = 0 9. Best Language: no aphasia = 0 10. Dysarthria (evaluate speech clarity by patient repeating listed words): normal articulation = 0 11. Extinction and Inattention: no neglect = 0 Total: 0 Results & Data Vital Signs (Past 12 Hours) Vital Signs Temp Pulse Pulse Resp BP BP Pulse Ox 11/06/24 12:34 63 11/06/24 10:50 36.8 C 67 18 135/79 96 11/06/24 10:25 68 16 121/70 95 11/06/24 09:13 69 16 121/72 95 11/06/24 08:35 72 16 134/77 93 11/06/24 07:25 36.7 C 66 18 109/77 98 11/06/24 02:54 36.8 C 65 20 97/66 L 97 O2 Del Method 11/06/24 12:34 11/06/24 10:50 Room Air 11/06/24 10:25 Room Air 11/06/24 09:13 Room Air 11/06/24 08:35 Room Air 11/06/24 07:25 Room Air 11/06/24 02:54 Room Air Laboratory Results Laboratory Results - last 24 hr 11/05/24 11/05/24 11/05/24 16:19 19:10 19:40 WBC RBC Hgb Hct MCV MCH MCHC RDW Std Deviation RDW Coeff of Romelia Plt Count MPV PT INR Heparin Anti-Xa, Unfract 0.40 Sodium Potassium Chloride Carbon Dioxide Anion Gap BUN Creatinine Est Cr Clr Drug Dosing eGFR BUN/Creatinine Ratio Glucose POC Glucose 193 H 185 H Calcium Phosphorus Magnesium 11/06/24 11/06/24 11/06/24 05:35 07:23 11:15 WBC 9.94 RBC 4.90 Hgb 14.3 Hct 41.7 L MCV 85.1 MCH 29.2 MCHC 34.3 RDW Std Deviation 41.5 RDW Coeff of Romelia 13.3 Plt Count 170 MPV 10.9 PT 11.2 INR 1.0 Heparin Anti-Xa, Unfract 0.53 Sodium 135 L Potassium 4.1 Chloride 106 Carbon Dioxide 23 Anion Gap 6 BUN 18 Creatinine 0.62 Est Cr Clr Drug Dosing 171.1 eGFR 113.58 BUN/Creatinine Ratio 29.0 H Glucose 202 H POC Glucose 266 H 114 H Calcium 9.9 Phosphorus 2.0 L Magnesium 1.[address] scan of the head shows no acute ischemic changes. MRI of the brain shows no chronic white matter changes to account for emboli no current diffusion restriction. 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 Medications Administered Home Medications Medication Instructions Recorded Confirmed Last Taken blood sugar diagnostic (Verge SolutionsTouch #50 ea 09/06/20 04/03/24 Unknown Verio test strips) blood-glucose meter (Verge SolutionsTouch #1 ea 09/06/20 04/03/24 Unknown Verio Flex Start kit) lancets 33 gauge (OneTouch Delica #100 ea 09/06/20 04/03/24 Unknown Lancets) aspirin 81 mg tablet,delayed 81 mg PO UD 11/04/24 11/04/24 Unknown release atorvastatin 40 mg tablet 40 mg PO UD 11/04/24 11/04/24 Unknown carvedilol 3.125 mg tablet 3.125 mg PO UD 11/04/24 11/04/24 Unknown empagliflozin 10 mg tablet 10 mg PO UD 11/04/24 11/04/24 Unknown (Jardiance) furosemide 20 mg tablet 20 mg PO UD 11/04/24 11/04/24 Unknown insulin glargine 100 unit/mL 10 unit subcut UD 11/04/24 11/04/24 Unknown subcutaneous solution (Lantus U-100 Insulin) sacubitril 24 mg-valsartan 26 mg 1 tab PO UD 11/04/24 11/04/24 Unknown tablet (Entresto) Active Medications Generic Name Dose Route Start Last Admin Trade Name Freq PRN Reason Stop Dose Admin Acetaminophen 650 mg 11/04/24 20:00 11/06/24 13:03 Acetaminophen 325 Mg Tab PO 12/04/24 19:59 650 mg Q4H PRN Administration Pain or Fever Aspirin 81 mg 11/05/24 09:00 11/06/24 11:25 Aspirin 81 Mg Ectab PO 12/05/24 08:59 81 mg DAILY DEREK Administration Atorvastatin Calcium 80 mg 11/05/24 09:00 11/06/24 11:25 Atorvastatin 40 Mg Tab PO 12/05/24 08:59 80 mg DAILY DEREK Administration Heparin Sodium/Dextrose 25,000 units in 500 mls @ 38 mls/hr 11/04/24 17:30 11/06/24 12:56 Heparin 82976 Unit/500 Ml D5w IV 12/04/24 17:29 1,900 units/hr .[id number] DEREK 38 mls/hr Administration Protocol 1,900 UNITS/HR Insulin Aspart 0 units 11/04/24 16:30 11/06/24 11:34 Insulin Aspart Per Unit Charge SC 12/04/24 16:29 4 units ACHS DEREK Administration Insulin Glargine 20 units 11/06/24 09:00 11/06/24 08:26 Lantus Per Unit Charge SQ 12/06/24 08:59 20 units DAILY DEREK Administration Lisinopril 2.5 mg 11/05/24 09:00 11/06/24 11:25 Lisinopril 2.5 Mg Tab PO 12/05/24 08:59 2.5 mg QAM DEREK Administration Metoprolol Succinate 25 mg 11/04/24 20:00 11/06/24 11:25 Metoprolol Succ 25mg Ext Rel Tab PO 12/04/24 19:59 25 mg QAM DEREK Administration Nitroglycerin 0.4 mg 11/04/24 13:31 11/04/24 18:10 Nitroglycerin Sl 0.4 Mg/Tab Tab SL 12/04/24 13:30 0.4 mg Q5M PRN Administration Chest Pain
[2024-11-06] MEDS ORDERED: DICLOFENAC SOD 1% GEL 100 GM TUBE EXT PRN (13:53)
[2024-11-06] MEDS: DICLOFENAC SOD 1% GEL 100 GM TUBE EXT PRN (15:59)
[2024-11-06] MEDS: WARFARIN SOD 10 MG TAB PO SCH (16:01)
[2024-11-07 07:58] LABS: Hematocrit (blood only) 44.2 % (42.0-52.0); Hemoglobin 15.1 g/dl (14.0-18.0); Mean Corpuscular Hemoglobin 29.8 pg (25.0-34.0); Mean Corpuscular Hgb Conc 34.2 g/dL (32.0-36.0); Mean Corpuscular Volume 87.4 fL (80.0-100.0); Mean Platelet Volume 11.3 fL (9.4-12.4); Platelet Count 175 K/uL (130-400); RDW Coefficient of Variation 13.4 % (11.5-14.5); RDW Standard Deviation 42.5 fL (36.4-46.3); Red Blood Count 5.06 M/uL (4.70-6.10); White Blood Count 7.66 K/ul (4.8-10.8)
[2024-11-07] MEDS: LANTUS PER UNIT CHARGE SQ SCH (08:12)
[2024-11-07 08:26] LABS: BUN Creatinine Ratio 21.7 (10-20); Creatinine Clr Calc Pharmacy 176.9 ml/min; INR 1.1 (0.9-1.1); Phosphorus 2.2 mg/dl (2.5-4.9); Potassium 4.1 mmol/L (3.5-5.1); Prothrombin Time 11.7 Seconds (9.0-12.0)
--- NOTE | 2024-11-07 09:18 | Cardiology Progress Note ---
Date of Service November 07, 2024 Assessment & Plan (1) Atypical chest pain: (2) Hypertension: (3) CAD (coronary artery disease): (4) LV (left ventricular) mural thrombus: (5) Non compliance w medication regimen: (6) Stroke-like symptoms: Plan 11/05/24 Patient admitted for atypical chest pain and SOB. Complex history of CABG x3 in Mar 2024, described above. Prior ischemic cardiomyopathy with LVEF 40% in Mar with LV mural thrombus. Admitted with CP/SOB with history of CAD -EKG initially demonstrated sinus tach with non specific ST/T wave abnormality. No acute ischemic changes. -HS troponin negative x4 since admission -Echo revealed improved LVEF at 55% compared to 40-45% in Mar 2024 -Resume GDMT - Aspirin 81 mg, atorvastatin 80 mg, metoprolol succinate 25 mg, lisinopril 2.5 mg daily. -Added nitro paste - Can discontinue at this time -his chest pain is reproducible with palpation to the chest wall, MSK component -Chest pain is non exertional -Could consider future outpatient ischemic work up with nuclear stress test if he has recurrent anginal symptoms. He denied recent exertional chest pain. History of Reduced LVEF/ischemic cardiomyopathy with LVEF 40-45%, now 55% -interval improvement in LVEF since CABG -continue guide line directed medical therapies -Likely would not afford Entresto. Continue lisinopril and metoprolol LV mural thrombus -evidence of LV thrombus on echo -This was present at time of CABG in Mar 2024 and he was started on Coumadin. -He was non compliant with Coumadin as an outpatient. -Started on IV heparin on admission -Resume oral Coumadin 5 mg daily -Daily PT/INR. Goal INR 2-3 -Stop heparin when INR is 2 or greater. Hypertension -BP uncontrolled on admission due to non compliance -resume metoprolol and lisinopril -D/C nitro oint. -titrate lisinopril as needed 11/06/24: Patient with acute visual disturbances this morning and intermittent expressive aphasia. Stroke alert called Imaging unremarkable including head CTA and brain MRI for acute stroke. He does have moderate left sided carotid stenosis, similar to past evaluation At time of evaluation, no speech deficits noted. Patient reporting ongoing peripheral vision loss b/l. Neuro consult pending. Recommend continuing ASA and IV heparin with bridge to coumadin given LV thrombus. Increase coumadin to 10 mg daily INR remains 1.0 today. Goal 2-3 Continue statin His chest pain is atypical for cardiac etiology. Reproducible with palpation to the chest wall suggesting MSK component. HS troponin negative since admission Echo with preserved LVEF. CAD -oral medications resumed including ASA, statin, metoprolol and lisinopril. Case discussed with Dr. Morris. I spent a total of 30 minutes on the date of service in preparation, delivery, and documentation of the care provided to this patient, excluding any time spent in the performance of separately billed services. Lolita Jackson PA-C Department of Cardiology, [facility] 11/07/2024: -Patient resting comfortably in bed demonstrates clinical improvement in comparison to yesterday -No acute events overnight. -CT/MRI imaging was negative yesterday for acute stroke after aphasic event. -Recommend to continue Heparin gtt and ASA along with Warfarin 10mg PO today. INR today is 1.1 -Continue statin therapy, ASA, Metoprolol and Lisinopril as part of GDMT regimen Case has been discussed with Dr. Morris. Further recommendations regarding plan of care as per his assessment. I spent a total of 30 minutes on the date of service in preparation, delivery, documentation of the care provided to the patient excluding any time spent in the performance of separately billed services. SADAF [facility] This chart was completed in part utilizing Speech Voice Recognition Software. Grammatical errors, random word insertions, pronoun errors, and incomplete sentences are an occasional consequence of this system due to software limitations, ambient noise, and hardware issues. Any formal questions or concerns about the content, text, or information contained within the body of this dictation should be directly addressed to the provider for clarification. Admission and Anticipated Discharge Date Admission Date: November 04, 2024 Supervising Physician Co-Signing Physician Notes I have personally performed a history and physical examination on the patient. I have reviewed the advance practitioner's documentation, and I agree with, and take responsibility for the plan of care. 54-year-old male with a history of coronary disease status post coronary artery bypass grafting March 2024 and left ventricular apical thrombus presents with atypical chest discomfort. Noncompliant with cardiovascular medications including warfarin for 2 months prior to hospitalization. Echocardiogram demonstrating apical LV thrombus. Stroke alert 11/06/2024 due to visual disturbance and difficulties with speech. MRI negative for CVA. Neurology consultation reporting possible migraine rather than TIA/CVA. Today, patient feeling better. Denies chest pain or unusual shortness of breath. Continues to note visual disturbance. No slurred speech, paresthesias, or focal weakness. INR 1.1 Recommendations: * Continue cardiovascular medications including lisinopril, metoprolol, atorvastatin, aspirin, and warfarin. * Continue IV heparin until INR 2.0 or greater * Stroke evaluation/visual disturbance evaluation and management as per neurology/IM I spent a total of 20 minutes on the date of service in preparation, delivery, and documentation of the care provided to this patient, excluding any time spent in the performance of separately billed services. Brady Morris DO, [facility] Subjective 11/07/2024: Patient seen and examined in follow up today. Feeling "fine". Offers no acute concerns. Denies chest pain, pressure, palpitations, no shortness of breath, PND, pre-syncope, syncope or edema Continues on Heparin gtt at time of exam with transition to PO Warfarin Labs, vitals, diagnostics, telemetry and documentation reviewed. Telemetry reviewed showing SB/SR Rate 50s-60's No acute events overnight Review of Systems Review of Systems: All systems reviewed & are unremarkable except as noted in HPI & below Physical Exam Constitutional: well developed and well nourished; no acute distress and not ill appearing Neck: normal visual inspection and trachea midline Respiratory: normal respiratory effort, lungs clear to auscultation Auscultation: lungs clear to auscultation bilaterally; no crackles, no rales, no rhonchi and no wheezes Cardiovascular: Rate/Rhythm: regular rate and regular rhythm Heart Sounds: normal S1 and normal S2; no murmur Vessels: dorsalis pedis pulses present; no JVD Extremities: no edema Skin: no rashes, warm and dry Psychiatric: A+Ox3, euthymic affect Results & Data Vital Signs (Past 12 Hours) Vital Signs Temp Pulse Pulse Resp BP BP Pulse Ox 11/07/24 09:04 11/07/24 07:14 61 11/07/24 07:10 36.5 C 58 L 18 112/74 98 11/07/24 03:28 36.8 C 63 18 110/70 96 11/06/24 23:23 36.7 C 69 18 115/72 94 11/06/24 21:56 66 O2 Del Method 11/07/24 09:04 Room Air 11/07/24 07:14 11/07/24 07:10 Room Air 11/07/24 03:28 Room Air 11/06/24 23:23 Room Air 11/06/24 21:56 Laboratory Results Coagulation 11/07/24 Range/Units 07:30 PT 11.7 (9.0-12.0) Seconds CBC 11/07/24 Range/Units 07:30 WBC 7.66 (4.8-10.8) K/ul RBC 5.06 (4.70-6.10) M/uL Hgb 15.1 (14.0-18.0) g/dl Hct 44.2 (42.0-52.0) % Plt Count 175 (130-400) K/uL Comprehensive Metabolic Panel 11/07/24 Range/Units 07:30 Sodium 135 L (136-145) mmol/L Potassium 4.1 (3.5-5.1) mmol/L Chloride 103 (98-107) mmol/L Carbon Dioxide 29 (21-32) mmol/L BUN 13 (6-23) mg/dl Creatinine 0.60 (0.6-1.4) mg/dl Glucose 217 H (70-99(Fasting)) mg/dl Calcium 10.0 (8.6-10.3) mg/dl Intake and Output 11/06/24 11/07/24 11/07/24 22:59 06:59 14:59 Intake Total 1018.767 / 2000.334 242.567 / 2000.334 Output Total Balance 1017.767 / 1999.334 242.567 / 1999.334 Intake: IV 238.767 / 981.334 242.567 / 981.334 Heparin 90997 Unit/500 ml D5w 238.767 / 981.334 242.567 / 981.334 25,000 units In 500 ml @ 1,900 UNITS/HR 38 mls/hr IV .[id number] DEREK Rx#:[id number] Oral 780 / 1020 Output: # Bowel Movements Other: # Unmeasured Voids 1 2 Weight 109.2 kg Weight Measurement Method Built in Bedscale (2) Hypertension Hypertension type: primary hypertension Qualified Code(s): I10 - Essential (primary) hypertension (3) CAD (coronary artery disease) Associated angina: unspecified whether angina present Coronary Disease- Associated Artery/Lesion type: [place] artery [place] vs. transplanted heart: [place] heart Qualified Code(s): I25.10 - Atherosclerotic heart disease of [place] coronary artery without angina pectoris
--- NOTE | 2024-11-07 10:32 | Hospitalist Progress Note ---
Date of Service November 07, 2024 Assessment & Plan (1) Chest pain: (2) CHF (congestive heart failure): (3) HFrEF (heart failure with reduced ejection fraction): (4) Hyperlipidemia: (5) Hypertension: (6) DM2 (diabetes mellitus, type 2): Plan The patient is a 54-year-old male who presented to the ED on with complaints of chest pain. Patient recently hospitalized in April 2024 with NSTEMI, s/p CABG, LV thrombus previously on warfarin/aspirin. Patient stopped taking his medications 2 months ago due to issues with affording medication Rule out ACS Hx CABG x3-2023 Hx LV thrombus Initial EKG without acute changes, Trop negative x 2, continue to trend Repeat echo, EKG in a.m., chest x-ray/chest CTA unremarkable Has been off of aspirin/warfarin x 2 months, INR subtherapeutic Initiated heparin drip on admission Echo - LV EF 50-55%, Septal motion is consistent w/ post-op state. There is a moderate sized apical and anteroseptal wall motion abnormality with hypokinesis to akinesis of the segments. Moderate sized LV apical thrombus. There is trace mitral regurg. - Cardiology consulted- - Resume GDMT - Aspirin 81 mg, atorvastatin 80 mg, metoprolol succinate 25 mg, lisinopril 2.5 mg daily. - cont IV heparin, coumadin resumed - now at 10mg today, monitor INR - current 1.1 11/06 stroke alert Initially contacted by RN pt had troubles w/ speech, on my eval, pt answers appropriately, speech fluent, no significant weakness in any extremities - some mild weakness in upper extremities b/l. no facial asymmetry. However pt reports peripheral vision loss (blurriness) in both eyes. Stroke alert called. Stat CT head, CTA head and neck ordered[place] [facility] [place] - pt on IV heparin - per Dr. Rollins will obtain brain MRI, will cont. IV heparin for now CT head - FINDINGS: No intracranial hemorrhage seen. No mass effect, midline shift, or hydrocephalus. There is mucosal thickening in the maxillary sinuses. No mastoid effusion. No skull fracture seen. IMPRESSION: No acute findings. CTA head and neck - IMPRESSION: 1. No arterial occlusion or high-grade stenosis. 2. 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 IMPRESSION: 1. No stenosis of the bilateral internal carotid or vertebral arteries. 2. Moderate noncalcified plaque within the left common carotid artery which results in mild long segment stenosis.3. No dissection within the neck. Brain MR - No acute intracranial abnormality. No acute or subacute infarct. Neurology consulted and discussed with - (1) Stroke-like symptoms: With visual changes inconsistent for a single visual field. Suspect a functional component low suspicion for seizures or migraine MRI of the brain is negative. CTA did not show any Significant occlusions of the patient has kept hemodynamic stability Plan No contraindication to continue heparin. Can transition to warfarin Consider intrinsic eye exam rule out microhemorrhages although less likely. - ophthalmology outpt follow up recommended Follow-up clinically and consider repeating MRI of the brain if symptoms do not improve CTA shows a 2mm A COM aneurysm that will need an outpatient follow up with neuroendovascular surgery . Please place a referral to neuroendovascular surgery at [facility]. Hx DM2: Off oral diabetic medications as well as insulin for months. - Current A1c 10.3% - [place] Glycemic pharmacy consulted Full code DVT prophylaxis: Heparin drip Admission and Anticipated Discharge Date Admission Date: November 04, 2024 Subjective Pt seen in follow up of chest pain hx of CAD s/p CABG, not taking meds for past 2 months hx of LV thrombus, currently on IV heparin Cardiology consulted Yesterday AM - contacted by RN pt had troubles w/ speech, on my eval, pt answers appropriately, speech fluent, no significant weakness in any extremities - some mild weakness in upper extremities b/l. no facial asymmetry. However pt reports peripheral vision loss in both eyes. Stroke alert called. Pt currently denies chest pain - reported previously he has some w/ certain movements. Denies shortness of breath, dizziness, lightheadedness. pt reports vision slightly improved, said he had very blurry vision after his bypass surgery, which then somewhat improved but was having some blurry vision since Review of Systems Review of Systems: All systems reviewed & are unremarkable except as noted in Subjective Physical Exam 2 Physical Exam: Constitutional: WD/WN, vitals as a renetta Eyes: conjunctivae jacobo l, anicteric scler ae,+peripheral vis ion loss (blurry) b/l ENMT: external ear and n ose normal Neck: supple Respiratory: normal respiratory effort, decreased breath sounds Cardiovascular: RRR, no murmur, no edema Gastrointestinal ( Abdomen): normal bowel sound s, soft, nontender Musculoskeletal: moves extremities Skin: no rashes, warm an d dry Neurologic: awake, alert, answ ers appropriately, EOMI, no face pal sy, no dysarthria, moves extremities Psychiatric: Orientation: ramez portillo x 3 Results & Data Results & Data Vital Signs (Past 12 Hours) Vital Signs Temp Pulse Pulse Resp BP BP Pulse Ox 11/07/24 09:04 11/07/24 07:14 61 11/07/24 07:10 36.5 C 58 L 18 112/74 98 11/07/24 03:28 36.8 C 63 18 110/70 96 11/06/24 23:23 36.7 C 69 18 115/72 94 O2 Del Method 11/07/24 09:04 Room Air 11/07/24 07:14 11/07/24 07:10 Room Air 11/07/24 03:28 Room Air 11/06/24 23:23 Room Air Laboratory Results 11/07/24 11/07/24 11/06/24 Range/Units 07:30 07:09 20:20 WBC 7.66 (4.8-10.8) K/ul RBC 5.06 (4.70-6.10) M/uL Hgb 15.1 (14.0-18.0) g/dl Hct 44.2 (42.0-52.0) % MCV 87.4 (80.0-100.0) fL MCH 29.8 (25.0-34.0) pg MCHC 34.2 (32.0-36.0) g/dL RDW Std Deviation 42.5 (36.4-46.3) fL RDW Coeff of Romelia 13.4 (11.5-14.5) % Plt Count 175 (130-400) K/uL MPV 11.3 (9.4-12.4) fL PT 11.7 (9.0-12.0) Seconds INR 1.1 (0.9-1.1) Heparin Anti-Xa, Unfract 0.60 (0.3-0.7) IU/ml Sodium 135 L (136-145) mmol/L Potassium 4.1 (3.5-5.1) mmol/L Chloride 103 (98-107) mmol/L Carbon Dioxide 29 (21-32) mmol/L Anion Gap 3 (3-11) BUN 13 (6-23) mg/dl Creatinine 0.60 (0.6-1.4) mg/dl Est Cr Clr Drug Dosing 176.9 ml/min eGFR 114.71 BUN/Creatinine Ratio 21.7 H (10-20) Glucose 217 H (70-99(Fasting)) mg/dl POC Glucose 227 H 216 H (70-99) mg/dl Calcium 10.0 (8.6-10.3) mg/dl Phosphorus 2.2 L (2.5-4.9) mg/dl Magnesium 2.0 (1.7-2.4) mg/dl 11/06/24 11/06/24 Range/Units 16:13 11:15 WBC (4.8-10.8) K/ul RBC (4.70-6.10) M/uL Hgb (14.0-18.0) g/dl Hct (42.0-52.0) % MCV (80.0-100.0) fL MCH (25.0-34.0) pg MCHC (32.0-36.0) g/dL RDW Std Deviation (36.4-46.3) fL RDW Coeff of Romelia (11.5-14.5) % Plt Count (130-400) K/uL MPV (9.4-12.4) fL PT (9.0-12.0) Seconds INR (0.9-1.1) Heparin Anti-Xa, Unfract (0.3-0.7) IU/ml Sodium (136-145) mmol/L Potassium (3.5-5.1) mmol/L Chloride (98-107) mmol/L Carbon Dioxide (21-32) mmol/L Anion Gap (3-11) BUN (6-23) mg/dl Creatinine (0.6-1.4) mg/dl Est Cr Clr Drug Dosing ml/min eGFR BUN/Creatinine Ratio (10-20) Glucose (70-99(Fasting)) mg/dl POC Glucose 197 H 114 H (70-99) mg/dl Calcium (8.6-10.3) mg/dl Phosphorus (2.5-4.9) mg/dl Magnesium (1.7-2.4) mg/dl Medications Administered Current Inpatient Medications Acetaminophen (Acetaminophen 325 Mg Tab) 650 mg PO Q4H PRN PRN Reason: Pain or Fever Stop: 12/04/24 19:59 Last Admin: 11/06/24 13:03 Dose: 650 mg Aspirin (Aspirin 81 Mg Ectab) 81 mg PO DAILY [facility] Stop: 12/05/24 08:59 Last Admin: 11/07/24 08:12 Dose: 81 mg Atorvastatin Calcium (Atorvastatin 40 Mg Tab) 80 mg PO DAILY [facility] Stop: 12/05/24 08:59 Last Admin: 11/07/24 08:12 Dose: 80 mg Dextrose (Dextrose 50% 50 Ml Syringe) 25 - 50 ml IV UD PRN; Protocol PRN Reason: Hypoglycemia Protocol Stop: 12/04/24 16:23 Diclofenac Sodium (Diclofenac Sod 1% Gel 100 Gm Tube) 2 gm EXT QID PRN; Protocol PRN Reason: Pain Stop: 12/06/24 13:52 Last Admin: 11/07/24 08:16 Dose: 2 gm Glucagon (Glucagon For Inj 1 Mg Vial) 1 mg SQ UD PRN; Protocol PRN Reason: Hypoglycemia Protocol Stop: 12/04/24 16:23 Glucose (Glucose 40% Gel 15 Gm Tube) 15 - 30 gm PO UD PRN; Protocol PRN Reason: Hypoglycemia Protocol Stop: 12/04/24 16:23 Glucose (Glucose 10 Tab/Tube) 4 - 8 tab PO UD PRN; Protocol PRN Reason: Hypoglycemia Protocol Stop: 12/04/24 16:23 Heparin Sodium/Dextrose (Heparin 07489 Unit/500 Ml D5w) 25,000 units in 500 mls @ 38 mls/hr IV .[id number] [facility]; Protocol Stop: 12/04/24 17:29 Last Admin: 11/07/24 01:36 Dose: 1,900 units/hr, 38 mls/hr Insulin Aspart (Insulin Aspart Per Unit Charge) 0 units SC ACHS [facility] Stop: 12/04/24 16:29 Last Admin: 11/07/24 08:10 Dose: 19 units Insulin Glargine (Lantus Per Unit Charge) 25 units SQ DAILY [facility] Stop: 12/07/24 08:59 Last Admin: 11/07/24 08:12 Dose: 25 units Lisinopril (Lisinopril 2.5 Mg Tab) 2.5 mg PO QAM [facility] Stop: 12/05/24 08:59 Last Admin: 11/07/24 08:12 Dose: 2.5 mg Metoprolol Succinate (Metoprolol Succ 25mg Ext Rel Tab) 25 mg PO QAM [facility] Stop: 12/04/24 19:59 Last Admin: 11/07/24 08:12 Dose: 25 mg Miscellaneous (Carbohydrates For Hypoglycemia ) 15 - 30 gm PO UD PRN PRN Reason: Hypoglycemia Protocol Stop: 12/04/24 16:23 Miscellaneous Information (Pharmacy Glycemic Mgmt Consult) 1 each N/A UD PRN PRN Reason: Consult Stop: 12/04/24 16:23 Nitroglycerin (Nitroglycerin Sl 0.4 Mg/Tab Tab) 0.4 mg SL Q5M PRN PRN Reason: Chest Pain Stop: 12/04/24 13:30 Last Admin: 11/04/24 18:10 Dose: 0.4 mg Warfarin Sodium (Warfarin Sod 10 Mg Tab) 10 mg PO DAILY@1600 [facility] Stop: 12/06/24 15:59 Last Admin: 11/06/24 16:01 Dose: 10 mg (1) Chest pain Chest pain type: unspecified Qualified Code(s): R07.9 - Chest pain, unspecified (5) Hypertension Hypertension type: primary hypertension Qualified Code(s): I10 - Essential (primary) hypertension
[2024-11-08 06:24] LABS: Hematocrit (blood only) 43.7 % (42.0-52.0); Hemoglobin 14.7 g/dl (14.0-18.0); Mean Corpuscular Hemoglobin 29.6 pg (25.0-34.0); Mean Corpuscular Hgb Conc 33.6 g/dL (32.0-36.0); Mean Corpuscular Volume 88.1 fL (80.0-100.0); Mean Platelet Volume 11.2 fL (9.4-12.4); Platelet Count 164 K/uL (130-400); RDW Coefficient of Variation 13.5 % (11.5-14.5); RDW Standard Deviation 43.2 fL (36.4-46.3); Red Blood Count 4.96 M/uL (4.70-6.10); White Blood Count 8.89 K/ul (4.8-10.8)
[2024-11-08 06:40] LABS: BUN Creatinine Ratio 18.1 (10-20); Calcium 10.3 mg/dl (8.6-10.3); Creatinine Clr Calc Pharmacy 147.3 ml/min; Magnesium 1.9 mg/dl (1.7-2.4); Phosphorus 2.2 mg/dl (2.5-4.9)
[2024-11-08 06:52] LABS: ANTI-Xa, UFH(UnfractionatedHep 0.51 IU/ml (0.3-0.7); INR 1.2 (0.9-1.1)
--- NOTE | 2024-11-08 07:36 | Pharmacy Report ---
Pharmacy Glycemic Short Note 2 - Date of Service November 08, 2024 - Glycemic Short BSG Results (Last 24 hours): 11/07/24 11/07/24 11/07/24 07:30 11:00 15:53 Glucose 217 H POC Glucose 151 H 156 H 11/07/24 11/08/24 11/08/24 19:54 06:06 07:21 Glucose 195 H POC Glucose 161 H 201 H OUTPATIENT ANTIDIABETIC REGIMEN: * Lantus prescribed but reportedly has not been using HbA1c: 10.3% on 11/05/24, previous HbA1c from 03/30/24 was 10.9% ASSESSMENT: 11/08 * Isael received a total of 70 units of insulin yesterday (25 units were basal and 45 units were bolus). BSGs were at goal after tightening CR with breakfast and increasing basal from 20 to 25 units. * Fasting today 201mg/dL. Increase Lantus dose further. No other changes needed at this time. Patient remains on heparin drip. 11/06 * Isael received a total of 44 units of insulin yesterday (15 units were basal and 29 units were bolus). BSGs were still above goal ([phone]/dL) * Fasting BSG was 266mg/dL. Lantus dose was increased and CR was tightened for the bolus insulin. 11/05 * 54 year old male admitted yesterday with chest pain. Pharmacy has been consulted for glycemic management while he is admitted. * Patient reportedly has not been taking any of his medications for at least the last few months (including his hyperglycemic medications). BSG on admit was 274mg/dL. Lantus 15 units SQ x 1 was ordered and a weight based bolus insulin regimen with a stress of 2 was started. * Fasting BSG was 214mg/dL this morning. Patient was NPO so did not immediately give a dose of basal insulin. BSG kamila to 233mg/dL at lunch and diet was started so an additional dose of Lantus 15 units SQ x 1 was ordered for today. The bolus insulin regimen will be continued without change but the upper end of the BSG goal range was decreased. PLAN FOR INPATIENT GLYCEMIC CONTROL: * Basal insulin * Lantus 30 units SQ Daily * Bolus insulin * NovoLog per scale ACHS or Q6hrs while NPO * Goal Range: Low 110 mg/dL - High 140 mg/dL * Correction Factor: 20 mg/dL/unit * Nutritional / Prandial insulin per carb ratio of 1 unit per 6 grams CHO consumed
[2024-11-08] MEDS: LANTUS PER UNIT CHARGE SQ SCH (08:12)
--- NOTE | 2024-11-08 08:29 | Hospitalist Progress Note ---
Date of Service November 08, 2024 Assessment & Plan (1) Chest pain: (2) CHF (congestive heart failure): (3) HFrEF (heart failure with reduced ejection fraction): (4) Hyperlipidemia: (5) Hypertension: (6) DM2 (diabetes mellitus, type 2): Plan The patient is a 54-year-old male who presented to the ED on with complaints of chest pain. Patient recently hospitalized in April 2024 with NSTEMI, s/p CABG, LV thrombus previously on warfarin/aspirin. Patient stopped taking his medications 2 months ago due to issues with affording medication Rule out ACS Hx CABG x3-2023 Hx LV thrombus Initial EKG without acute changes, Trop negative x 2, continue to trend Repeat echo, EKG in a.m., chest x-ray/chest CTA unremarkable Has been off of aspirin/warfarin x 2 months, INR subtherapeutic Initiated heparin drip on admission Echo - LV EF 50-55%, Septal motion is consistent w/ post-op state. There is a moderate sized apical and anteroseptal wall motion abnormality with hypokinesis to akinesis of the segments. Moderate sized LV apical thrombus. There is trace mitral regurg. - Cardiology consulted- - Resume GDMT - Aspirin 81 mg, atorvastatin 80 mg, metoprolol succinate 25 mg, lisinopril 2.5 mg daily. - cont IV heparin, coumadin resumed - now at 10mg today, monitor INR - current 1.2 11/06 stroke alert Initially contacted by RN pt had troubles w/ speech, on my eval, pt answers appropriately, speech fluent, no significant weakness in any extremities - some mild weakness in upper extremities b/l. no facial asymmetry. However pt reports peripheral vision loss (blurriness) in both eyes. Stroke alert called. Stat CT head, CTA head and neck ordered. [facility] [place] neurology called - pt on IV heparin - per Dr. Rollins will obtain brain MRI, will cont. IV heparin for now CT head - FINDINGS: No intracranial hemorrhage seen. No mass effect, midline shift, or hydrocephalus. There is mucosal thickening in the maxillary sinuses. No mastoid effusion. No skull fracture seen. IMPRESSION: No acute findings. CTA head and neck - IMPRESSION: 1. No arterial occlusion or high-grade stenosis. 2. 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 IMPRESSION: 1. No stenosis of the bilateral internal carotid or vertebral arteries. 2. Moderate noncalcified plaque within the left common carotid artery which results in mild long segment stenosis.3. No dissection within the neck. Brain MR - No acute intracranial abnormality. No acute or subacute infarct. Neurology consulted and discussed with - (1) Stroke-like symptoms: With visual changes inconsistent for a single visual field. Suspect a functional component low suspicion for seizures or migraine MRI of the brain is negative. CTA did not show any Significant occlusions of the patient has kept hemodynamic stability Plan No contraindication to continue heparin. Can transition to warfarin Consider intrinsic eye exam rule out microhemorrhages although less likely. - ophthalmology outpt follow up recommended Follow-up clinically and consider repeating MRI of the brain if symptoms do not improve CTA shows a 2mm A COM aneurysm that will need an outpatient follow up with neuroendovascular surgery . Please place a referral to neuroendovascular surgery at [facility]. Hx DM2: Off oral diabetic medications as well as insulin for months. - Current A[facility]c 10.3[facility] Glycemic pharmacy consulted Full code DVT prophylaxis: Heparin drip Admission and Anticipated Discharge Date Admission Date: November 04, 2024 Subjective Pt seen in follow up of chest pain hx of CAD s/p CABG, not taking meds for past 2 months hx of LV thrombus, currently on IV heparin Cardiology consulted Episode of speech disturbance and vision disturbance - reports peripheral vision loss (blurryness) in both eyes. Stroke alert called. Pt currently denies chest pain - except w/ certain movements. Denies shortness of breath, dizziness, lightheadedness. pt reports vision improved, said he had very blurry vision after his bypass surgery, which then somewhat improved but was having some blurry vision since. He was never seen by ophthalmology after this. Advised to follow up with them as outpt. Review of Systems Review of Systems: All systems reviewed & are unremarkable except as noted in Subjective Physical Exam Physical Exam: Constitutional: WD/WN, vitals as a renetta Eyes: conjunctivae jacobo l, anicteric scler ae,+peripheral vis ion loss (blurry) b/l - improved ENMT: external ear and n ose normal Neck: supple Respiratory: normal respiratory effort, decreased breath sounds Cardiovascular: RRR, no murmur, no edema Gastrointestinal ( Abdomen): normal bowel sound s, soft, nontender Musculoskeletal: moves extremities Skin: no rashes, warm an d dry Neurologic: awake, alert, answ ers appropriately, EOMI, no face pal sy, no dysarthria, moves extremities Psychiatric: Orientation: ramez portillo x 3 Results & Data Results & Data Vital Signs (Past 12 Hours) Vital Signs Temp Pulse Pulse Resp BP BP Pulse Ox 11/08/24 07:22 36.3 C L 60 18 126/81 98 11/08/24 07:11 11/08/24 07:10 59 L 11/08/24 02:49 36.6 C 60 16 115/73 99 11/07/24 23:22 36.4 C L 65 18 114/76 99 11/07/24 22:14 64 O2 Del Method 11/08/24 07:22 Room Air 11/08/24 07:11 Room Air 11/08/24 07:10 11/08/24 02:49 Room Air 11/07/24 23:22 Room Air 11/07/24 22:14 Laboratory Results 11/08/24 11/08/24 11/07/24 Range/Units 07:21 06:06 19:54 WBC 8.89 (4.8-10.8) K/ul RBC 4.96 (4.70-6.10) M/uL Hgb 14.7 (14.0-18.0) g/dl Hct 43.7 (42.0-52.0) % MCV 88.1 (80.0-100.0) fL MCH 29.6 (25.0-34.0) pg MCHC 33.6 (32.0-36.0) g/dL RDW Std Deviation 43.2 (36.4-46.3) fL RDW Coeff of Romelia 13.5 (11.5-14.5) % Plt Count 164 (130-400) K/uL MPV 11.2 (9.4-12.4) fL PT 13.0 H (9.0-12.0) Seconds INR 1.2 H (0.9-1.1) Heparin Anti-Xa, Unfract 0.51 (0.3-0.7) IU/ml Sodium 136 (136-145) mmol/L Potassium 5.0 D (3.5-5.1) mmol/L Chloride 104 (98-107) mmol/L Carbon Dioxide 30 (21-32) mmol/L Anion Gap 2 L (3-11) BUN 13 (6-23) mg/dl Creatinine 0.72 (0.6-1.4) mg/dl Est Cr Clr Drug Dosing 147.3 ml/min eGFR 108.57 BUN/Creatinine Ratio 18.1 (10-20) Glucose 195 H (70-99(Fasting)) mg/dl POC Glucose 201 H 161 H (70-99) mg/dl Calcium 10.3 (8.6-10.3) mg/dl Phosphorus 2.2 L (2.5-4.9) mg/dl Magnesium 1.9 (1.7-2.4) mg/dl 11/07/24 11/07/24 Range/Units 15:53 11:00 WBC (4.8-10.8) K/ul RBC (4.70-6.10) M/uL Hgb (14.0-18.0) g/dl Hct (42.0-52.0) % MCV (80.0-100.0) fL MCH (25.0-34.0) pg MCHC (32.0-36.0) g/dL RDW Std Deviation (36.4-46.3) fL RDW Coeff of Romelia (11.5-14.5) % Plt Count (130-400) K/uL MPV (9.4-12.4) fL PT (9.0-12.0) Seconds INR (0.9-1.1) Heparin Anti-Xa, Unfract (0.3-0.7) IU/ml Sodium (136-145) mmol/L Potassium (3.5-5.1) mmol/L Chloride (98-107) mmol/L Carbon Dioxide (21-32) mmol/L Anion Gap (3-11) BUN (6-23) mg/dl Creatinine (0.6-1.4) mg/dl Est Cr Clr Drug Dosing ml/min eGFR BUN/Creatinine Ratio (10-20) Glucose (70-99(Fasting)) mg/dl POC Glucose 156 H 151 H (70-99) mg/dl Calcium (8.6-10.3) mg/dl Phosphorus (2.5-4.9) mg/dl Magnesium (1.7-2.4) mg/dl Medications Administered Current Inpatient Medications Acetaminophen (Acetaminophen 325 Mg Tab) 650 mg PO Q4H PRN PRN Reason: Pain or Fever Stop: 12/04/24 19:59 Last Admin: 11/08/24 04:28 Dose: 650 mg Aspirin (Aspirin 81 Mg Ectab) 81 mg PO DAILY [facility] Stop: 12/05/24 08:59 Last Admin: 11/07/24 08:12 Dose: 81 mg Atorvastatin Calcium (Atorvastatin 40 Mg Tab) 80 mg PO DAILY [facility] Stop: 12/05/24 08:59 Last Admin: 11/07/24 08:12 Dose: 80 mg Dextrose (Dextrose 50% 50 Ml Syringe) 25 - 50 ml IV UD PRN; Protocol PRN Reason: Hypoglycemia Protocol Stop: 12/04/24 16:23 Diclofenac Sodium (Diclofenac Sod 1% Gel 100 Gm Tube) 2 gm EXT QID PRN; Protocol PRN Reason: Pain Stop: 12/06/24 13:52 Last Admin: 11/08/24 04:28 Dose: 2 gm Glucagon (Glucagon For Inj 1 Mg Vial) 1 mg SQ UD PRN; Protocol PRN Reason: Hypoglycemia Protocol Stop: 12/04/24 16:23 Glucose (Glucose 40% Gel 15 Gm Tube) 15 - 30 gm PO UD PRN; Protocol PRN Reason: Hypoglycemia Protocol Stop: 12/04/24 16:23 Glucose (Glucose 10 Tab/Tube) 4 - 8 tab PO UD PRN; Protocol PRN Reason: Hypoglycemia Protocol Stop: 12/04/24 16:23 Heparin Sodium/Dextrose (Heparin 69011 Unit/500 Ml D5w) 25,000 units in 500 mls @ 38 mls/hr IV .[id number] [facility]; Protocol Stop: 12/04/24 17:29 Last Titration: 11/08/24 07:04 Dose: 1,900 units/hr, 38 mls/hr Insulin Aspart (Insulin Aspart Per Unit Charge) 0 units SC ACHS [facility] Stop: 12/04/24 16:29 Last Admin: 11/07/24 20:23 Dose: 2 units Insulin Glargine (Lantus Per Unit Charge) 30 units SQ DAILY [facility] Stop: 12/08/24 08:59 Lisinopril (Lisinopril 2.5 Mg Tab) 2.5 mg PO QAM [facility] Stop: 12/05/24 08:59 Last Admin: 11/07/24 08:12 Dose: 2.5 mg Metoprolol Succinate (Metoprolol Succ 25mg Ext Rel Tab) 25 mg PO QAM [facility] Stop: 12/04/24 19:59 Last Admin: 11/07/24 08:12 Dose: 25 mg Miscellaneous (Carbohydrates For Hypoglycemia ) 15 - 30 gm PO UD PRN PRN Reason: Hypoglycemia Protocol Stop: 12/04/24 16:23 Miscellaneous Information (Pharmacy Glycemic Mgmt Consult) 1 each N/A UD PRN PRN Reason: Consult Stop: 12/04/24 16:23 Nitroglycerin (Nitroglycerin Sl 0.4 Mg/Tab Tab) 0.4 mg SL Q5M PRN PRN Reason: Chest Pain Stop: 12/04/24 13:30 Last Admin: 11/04/24 18:10 Dose: 0.4 mg Warfarin Sodium (Warfarin Sod 10 Mg Tab) 10 mg PO DAILY@1600 [facility] Stop: 12/06/24 15:59 Last Admin: 11/07/24 16:48 Dose: 10 mg (1) Chest pain Chest pain type: unspecified Qualified Code(s): R07.9 - Chest pain, unspecified (5) Hypertension Hypertension type: primary hypertension Qualified Code(s): I10 - Essential (primary) hypertension
--- NOTE | 2024-11-08 08:47 | Cardiology Progress Note ---
Date of Service November 08, 2024 Assessment & Plan (1) Atypical chest pain: (2) Hypertension: (3) CAD (coronary artery disease): (4) LV (left ventricular) mural thrombus: (5) Non compliance w medication regimen: (6) Stroke-like symptoms: Plan 11/05/24 Patient admitted for atypical chest pain and SOB. Complex history of CABG x3 in Mar 2024, described above. Prior ischemic cardiomyopathy with LVEF 40% in Mar with LV mural thrombus. Admitted with CP/SOB with history of CAD -EKG initially demonstrated sinus tach with non specific ST/T wave abnormality. No acute ischemic changes. -HS troponin negative x4 since admission -Echo revealed improved LVEF at 55% compared to 40-45% in Mar 2024 -Resume GDMT - Aspirin 81 mg, atorvastatin 80 mg, metoprolol succinate 25 mg, lisinopril 2.5 mg daily. -Added nitro paste - Can discontinue at this time -his chest pain is reproducible with palpation to the chest wall, MSK component -Chest pain is non exertional -Could consider future outpatient ischemic work up with nuclear stress test if he has recurrent anginal symptoms. He denied recent exertional chest pain. History of Reduced LVEF/ischemic cardiomyopathy with LVEF 40-45%, now 55% -interval improvement in LVEF since CABG -continue guide line directed medical therapies -Likely would not afford Entresto. Continue lisinopril and metoprolol LV mural thrombus -evidence of LV thrombus on echo -This was present at time of CABG in Mar 2024 and he was started on Coumadin. -He was non compliant with Coumadin as an outpatient. -Started on IV heparin on admission -Resume oral Coumadin 5 mg daily -Daily PT/INR. Goal INR 2-3 -Stop heparin when INR is 2 or greater. Hypertension -BP uncontrolled on admission due to non compliance -resume metoprolol and lisinopril -D/C nitro oint. -titrate lisinopril as needed 11/06/24: Patient with acute visual disturbances this morning and intermittent expressive aphasia. Stroke alert called Imaging unremarkable including head CTA and brain MRI for acute stroke. He does have moderate left sided carotid stenosis, similar to past evaluation At time of evaluation, no speech deficits noted. Patient reporting ongoing peripheral vision loss b/l. Neuro consult pending. Recommend continuing ASA and IV heparin with bridge to coumadin given LV thrombus. Increase coumadin to 10 mg daily INR remains 1.0 today. Goal 2-3 Continue statin His chest pain is atypical for cardiac etiology. Reproducible with palpation to the chest wall suggesting MSK component. HS troponin negative since admission Echo with preserved LVEF. CAD -oral medications resumed including ASA, statin, metoprolol and lisinopril. Case discussed with Dr. Morris. I spent a total of 30 minutes on the date of service in preparation, delivery, and documentation of the care provided to this patient, excluding any time spent in the performance of separately billed services. Lolita Jackson PA-C Department of Cardiology, [facility] 11/07/2024: -Patient resting comfortably in bed demonstrates clinical improvement in comparison to yesterday -No acute events overnight. -CT/MRI imaging was negative yesterday for acute stroke after aphasic event. -Recommend to continue Heparin gtt and ASA along with Warfarin 10mg PO today. INR today is 1.1 -Continue statin therapy, ASA, Metoprolol and Lisinopril as part of GDMT regimen Case has been discussed with Dr. Morris. Further recommendations regarding plan of care as per his assessment. I spent a total of 30 minutes on the date of service in preparation, delivery, documentation of the care provided to the patient excluding any time spent in the performance of separately billed services. SADAF Cooper [facility] 11/08/2024: -patient continues to improve from a clinical standpoint. offers no acute concerns. -Continue on Heparin gtt and ASA along with Warfarin 10mg PO today. INR 1.2 (Goal is 2.0-3.0) -Continue statin therapy, ASA, Metoprolol and Lisinopril as part of GDMT regimen Case has been discussed with Dr. Morris. Further recommendations regarding plan of care as per his assessment. I spent a total of 30 minutes on the date of service in preparation, delivery, documentation of the care provided to the patient excluding any time spent in the performance of separately billed services. SADAF Cooper [facility] This chart was completed in part utilizing Speech Voice Recognition Software. Grammatical errors, random word insertions, pronoun errors, and incomplete sentences are an occasional consequence of this system due to software limitations, ambient noise, and hardware issues. Any formal questions or concerns about the content, text, or information contained within the body of this dictation should be directly addressed to the provider for clarification. Admission and Anticipated Discharge Date Admission Date: November 04, 2024 Supervising Physician Co-Signing Physician Notes I have personally performed a history and physical examination on the patient. I have reviewed the advance practitioner's documentation, and I agree with, and take responsibility for the plan of care. 54-year-old male with a history of coronary disease status post coronary artery bypass grafting March 2024 and left ventricular apical thrombus admitted with atypical chest discomfort . Noncompliant with cardiovascular medications including warfarin for 2 months prior to hospitalization. Echocardiogram demonstrating apical LV thrombus. Stroke alert 11/06/2024 due to visual disturbance and difficulties with speech. MRI negative for CVA. Neurology consultation reporting possible migraine rather than TIA/CVA. Visual changes have resolved. Patient feeling well today. Denies chest pain or unusual shortness of breath. INR 1.2 Recommendations: * Continue cardiovascular medications including lisinopril, metoprolol, atorvastatin, aspirin, and warfarin. * Continue IV heparin until INR 2.0 or greater * Importance of compliance with cardiovascular medications reviewed. I spent a total of 20 minutes on the date of service in preparation, delivery, and documentation of the care provided to this patient, excluding any time spent in the performance of separately billed services. Brady Morris DO, [facility] Subjective 11/08/2024:Patient seen and examined in follow up today. Feeling well overall. Denies any acute cardiac concerns. Labs, vitals, diagnostics, telemetry and documentation reviewed. INR 1.2 today, remains on heparin gtt and is to receive Warfarin 10mg PO today at 1600 Telemetry reviewed showing SB/SR rates 50's-60's Review of Systems Review of Systems: All systems reviewed & are unremarkable except as noted in HPI & below Physical Exam Constitutional: well developed and well nourished; no acute distress and not ill appearing Neck: normal visual inspection and trachea midline Respiratory: normal respiratory effort, lungs clear to auscultation Auscultation: lungs clear to auscultation bilaterally; no crackles, no rales, no rhonchi and no wheezes Cardiovascular: Rate/Rhythm: regular rate and regular rhythm Heart Sounds: normal S1 and normal S2; no murmur Vessels: dorsalis pedis pulses present; no JVD Extremities: no edema Skin: no rashes, warm and dry Psychiatric: A+Ox3, euthymic affect Results & Data Vital Signs (Past 12 Hours) Vital Signs Temp Pulse Pulse Resp BP BP Pulse Ox 11/08/24 07:22 36.3 C L 60 18 126/81 98 11/08/24 07:11 11/08/24 07:10 59 L 11/08/24 02:49 36.6 C 60 16 115/73 99 11/07/24 23:22 36.4 C L 65 18 114/76 99 11/07/24 22:14 64 O2 Del Method 11/08/24 07:22 Room Air 11/08/24 07:11 Room Air 11/08/24 07:10 11/08/24 02:49 Room Air 11/07/24 23:22 Room Air 11/07/24 22:14 Laboratory Results Coagulation 11/08/24 Range/Units 06:06 PT 13.0 H (9.0-12.0) Seconds CBC 11/08/24 Range/Units 06:06 WBC 8.89 (4.8-10.8) K/ul RBC 4.96 (4.70-6.10) M/uL Hgb 14.7 (14.0-18.0) g/dl Hct 43.7 (42.0-52.0) % Plt Count 164 (130-400) K/uL Comprehensive Metabolic Panel 11/08/24 Range/Units 06:06 Sodium 136 (136-145) mmol/L Potassium 5.0 D (3.5-5.1) mmol/L Chloride 104 (98-107) mmol/L Carbon Dioxide 30 (21-32) mmol/L BUN 13 (6-23) mg/dl Creatinine 0.72 (0.6-1.4) mg/dl Glucose 195 H (70-99(Fasting)) mg/dl Calcium 10.3 (8.6-10.3) mg/dl Intake and Output 11/07/24 11/08/24 11/08/24 22:59 06:59 14:59 Intake Total 706.133 / 1340.866 198.867 / 198.867 Balance 706.133 / 1340.866 198.867 / 198.867 Intake: IV 466.133 / 920.866 198.867 / 198.867 Heparin 83607 Unit/500 ml D5w 466.133 / 920.866 198.867 / 198.867 25,000 units In 500 ml @ 1,900 UNITS/HR 38 mls/hr IV .[id number] [facility] Rx#:[id number] Oral 240 / 420 Other: # Unmeasured Voids 1 1 Weight 109.1 kg Weight Measurement Method Built in [facility] (2) Hypertension Hypertension type: primary hypertension Qualified Code(s): I10 - Essential (primary) hypertension (3) CAD (coronary artery disease) Associated angina: unspecified whether angina present Coronary Disease- Associated Artery/Lesion type: [place] artery [place] vs. transplanted heart: [place] heart Qualified Code(s): I25.10 - Atherosclerotic heart disease of [place] coronary artery without angina pectoris
[2024-11-09 06:30] LABS: Hematocrit (blood only) 44.9 % (42.0-52.0); Mean Corpuscular Hemoglobin 29.3 pg (25.0-34.0); Mean Corpuscular Hgb Conc 33.4 g/dL (32.0-36.0); Mean Corpuscular Volume 87.7 fL (80.0-100.0); Mean Platelet Volume 11.5 fL (9.4-12.4); Platelet Count 179 K/uL (130-400); RDW Coefficient of Variation 13.4 % (11.5-14.5); RDW Standard Deviation 42.8 fL (36.4-46.3); Red Blood Count 5.12 M/uL (4.70-6.10); White Blood Count 9.06 K/ul (4.8-10.8)
[2024-11-09 06:48] LABS: BUN Creatinine Ratio 17.5 (10-20); Creatinine Clr Calc Pharmacy 168.5 ml/min; Magnesium 1.9 mg/dl (1.7-2.4); Phosphorus 2.2 mg/dl (2.5-4.9); Potassium 4.4 mmol/L (3.5-5.1)
--- NOTE | 2024-11-09 09:10 | Cardiology Progress Note ---
Date of Service November 09, 2024 Assessment & Plan (1) Atypical chest pain: (2) Hypertension: (3) CAD (coronary artery disease): (4) LV (left ventricular) mural thrombus: (5) Non compliance w medication regimen: (6) Stroke-like symptoms: Plan 11/05/24 Patient admitted for atypical chest pain and SOB. Complex history of CABG x3 in Mar 2024, described above. Prior ischemic cardiomyopathy with LVEF 40% in Mar with LV mural thrombus. Admitted with CP/SOB with history of CAD -EKG initially demonstrated sinus tach with non specific ST/T wave abnormality. No acute ischemic changes. -HS troponin negative x4 since admission -Echo revealed improved LVEF at 55% compared to 40-45% in Mar 2024 -Resume GDMT - Aspirin 81 mg, atorvastatin 80 mg, metoprolol succinate 25 mg, lisinopril 2.5 mg daily. -Added nitro paste - Can discontinue at this time -his chest pain is reproducible with palpation to the chest wall, MSK component -Chest pain is non exertional -Could consider future outpatient ischemic work up with nuclear stress test if he has recurrent anginal symptoms. He denied recent exertional chest pain. History of Reduced LVEF/ischemic cardiomyopathy with LVEF 40-45%, now 55% -interval improvement in LVEF since CABG -continue guide line directed medical therapies -Likely would not afford Entresto. Continue lisinopril and metoprolol LV mural thrombus -evidence of LV thrombus on echo -This was present at time of CABG in Mar 2024 and he was started on Coumadin. -He was non compliant with Coumadin as an outpatient. -Started on IV heparin on admission -Resume oral Coumadin 5 mg daily -Daily PT/INR. Goal INR 2-3 -Stop heparin when INR is 2 or greater. Hypertension -BP uncontrolled on admission due to non compliance -resume metoprolol and lisinopril -D/C nitro oint. -titrate lisinopril as needed 11/06/24: Patient with acute visual disturbances this morning and intermittent expressive aphasia. Stroke alert called Imaging unremarkable including head CTA and brain MRI for acute stroke. He does have moderate left sided carotid stenosis, similar to past evaluation At time of evaluation, no speech deficits noted. Patient reporting ongoing peripheral vision loss b/l. Neuro consult pending. Recommend continuing ASA and IV heparin with bridge to coumadin given LV thrombus. Increase coumadin to 10 mg daily INR remains 1.0 today. Goal 2-3 Continue statin His chest pain is atypical for cardiac etiology. Reproducible with palpation to the chest wall suggesting MSK component. HS troponin negative since admission Echo with preserved LVEF. CAD -oral medications resumed including ASA, statin, metoprolol and lisinopril. Case discussed with Dr. Morris. I spent a total of 30 minutes on the date of service in preparation, delivery, and documentation of the care provided to this patient, excluding any time spent in the performance of separately billed services. Lolita Jackson PA-C Department of Cardiology, [facility] 11/07/2024: -Patient resting comfortably in bed demonstrates clinical improvement in comparison to yesterday -No acute events overnight. -CT/MRI imaging was negative yesterday for acute stroke after aphasic event. -Recommend to continue Heparin gtt and ASA along with Warfarin 10mg PO today. INR today is 1.1 -Continue statin therapy, ASA, Metoprolol and Lisinopril as part of GDMT regimen Case has been discussed with Dr. Morris. Further recommendations regarding plan of care as per his assessment. I spent a total of 30 minutes on the date of service in preparation, delivery, documentation of the care provided to the patient excluding any time spent in the performance of separately billed services. SADAF Cooper [facility] 11/08/2024: -patient continues to improve from a clinical standpoint. offers no acute concerns. -Continue on Heparin gtt and ASA along with Warfarin 10mg PO today. INR 1.2 (Goal is 2.0-3.0) -Continue statin therapy, ASA, Metoprolol and Lisinopril as part of GDMT regimen 11/09/2024: -Patient continues to improve from a clinical perspective. Offers no acute concerns. -Continue heparin gtt and ASA along with Warfarin 10mg PO Today. INR approaching goal, 1.6 (Goal 2.0-3.0) -Continue statin therapy, ASA, Metoprolol and Lisinopril as part of GDMT regimen Case has been discussed with Dr. Catherine. Further recommendations regarding plan of care as per his assessment. This chart was completed in part utilizing Speech Voice Recognition Software. Grammatical errors, random word insertions, pronoun errors, and incomplete sentences are an occasional consequence of this system due to software limitations, ambient noise, and hardware issues. Any formal questions or concerns about the content, text, or information contained within the body of this dictation should be directly addressed to the provider for clarification. Admission and Anticipated Discharge Date Admission Date: November 04, 2024 Supervising Physician Co-Signing Physician Notes I have personally performed a history and physical examination on the patient. I have reviewed the advance practitioner's documentation, and I agree with, and take responsibility for the plan of care. 54-year-old male with a history of coronary disease status post coronary artery bypass grafting March 2024 and left ventricular apical thrombus admitted with atypical chest discomfort . Noncompliant with cardiovascular medications including warfarin for 2 months prior to hospitalization. Echocardiogram demonstrating apical LV thrombus. No cardiac complaints today no further neurologic events. Awaiting INR to become therapeutic. I spent a total of 20 minutes on the date of service in preparation, delivery, and documentation of the care provided to this patient, excluding any time spent in the performance of separately billed services. Brady Morris DO, [facility] Subjective 11/09/2024: Patient seen and examined in follow up today. Feeling well from a cardiac perspective. Offers no acute concerns. Labs, vitals, diagnostics, telemetry and documentation reviewed. Telemetry reviewed showing SR with rates in the 60's. No acute events overnight Review of Systems Review of Systems: All systems reviewed & are unremarkable except as noted in HPI & below Physical Exam Constitutional: well developed and well nourished; no acute distress and not ill appearing Neck: normal visual inspection and trachea midline Respiratory: normal respiratory effort, lungs clear to auscultation Auscultation: lungs clear to auscultation bilaterally; no crackles, no rales, no rhonchi and no wheezes Cardiovascular: Rate/Rhythm: regular rate and regular rhythm Heart Sounds: normal S1 and normal S2; no murmur Vessels: dorsalis pedis pulses present; no JVD Extremities: no edema Skin: no rashes, warm and dry Psychiatric: A+Ox3, euthymic affect Results & Data Vital Signs (Past 12 Hours) Vital Signs Temp Pulse Pulse Resp BP Pulse Ox O2 Del Method 11/09/24 08:55 Room Air 11/09/24 08:00 36.6 C 70 16 118/78 95 Room Air 11/09/24 07:20 64 11/09/24 02:56 36.7 C 65 18 126/81 98 Room Air 11/08/24 22:59 36.5 C 69 18 141/84 H 96 Room Air 11/08/24 22:02 65 Laboratory Results Coagulation 11/09/24 Range/Units 09:55 PT 16.3 H (9.0-12.0) Seconds CBC 11/09/24 Range/Units 05:29 WBC 9.06 (4.8-10.8) K/ul RBC 5.12 (4.70-6.10) M/uL Hgb 15.0 (14.0-18.0) g/dl Hct 44.9 (42.0-52.0) % Plt Count 179 (130-400) K/uL Comprehensive Metabolic Panel 11/09/24 Range/Units 05:29 Sodium 137 (136-145) mmol/L Potassium 4.4 (3.5-5.1) mmol/L Chloride 106 (98-107) mmol/L Carbon Dioxide 28 (21-32) mmol/L BUN 11 (6-23) mg/dl Creatinine 0.63 (0.6-1.4) mg/dl Glucose 175 H (70-99(Fasting)) mg/dl Calcium 10.0 (8.6-10.3) mg/dl Intake and Output 11/08/24 11/09/24 11/09/24 22:59 06:59 14:59 Intake Total 301.133 / 1479.700 499.7 / 1479.700 218.500 / 218.500 Output Total Balance 301.133 / 1479.700 499.7 / 1479.700 217.500 / 217.500 Intake: IV 301.133 / 999.700 499.7 / 999.700 218.500 / 218.500 Heparin 95788 Unit/500 ml D5w 301.133 / 999.700 499.7 / 999.700 218.500 / 218.500 25,000 units In 500 ml @ 1,900 UNITS/HR 38 mls/hr IV .[id number] [facility] Rx#:[id number] Output: # Bowel Movements Other: # Unmeasured Voids 1 Weight 109.3 kg Weight Measurement Method Built in [facility] (2) Hypertension Hypertension type: primary hypertension Qualified Code(s): I10 - Essential ( primary) hypertension (3) CAD (coronary artery disease) Associated angina: unspecified whether angina present Coronary Disease- Associated Artery/Lesion type: [place] artery [place] vs. transplanted heart: [place] heart Qualified Code(s): I25.10 - Atherosclerotic heart disease of [place] coronary artery without angina pectoris
--- NOTE | 2024-11-09 10:34 | Pharmacy Report ---
Pharmacy Glycemic Short Note 2 - Date of Service November 09, 2024 - Glycemic Short BSG Results (Last 24 hours): 11/08/24 11/08/24 11/08/24 10:59 15:52 20:22 Glucose POC Glucose 185 H 101 H 191 H 11/09/24 11/09/24 05:29 07:41 Glucose 175 H POC Glucose 157 H OUTPATIENT ANTIDIABETIC REGIMEN: * Lantus prescribed but reportedly has not been using HbA1c: 10.3% on 11/05/24, previous HbA1c from 03/30/24 was 10.9% ASSESSMENT: 11/09 * Isael received 66 units of insulin yesterday (30 were bolus) * Fasting BSG this AM acceptable, basal insulin increased yesterday, will continue current regimen * No changes to NovoLog at this time, he continues on a heparin drip 11/08 * Isael received a total of 70 units of insulin yesterday (25 units were basal and 45 units were bolus). BSGs were at goal after tightening CR with breakfast and increasing basal from 20 to 25 units. * Fasting today 201mg/dL. Increase Lantus dose further. No other changes needed at this time. Patient remains on heparin drip. 11/06 * Isael received a total of 44 units of insulin yesterday (15 units were basal and 29 units were bolus). BSGs were still above goal ([phone]/dL) * Fasting BSG was 266mg/dL. Lantus dose was increased and CR was tightened for the bolus insulin. 11/05 * 54 year old male admitted yesterday with chest pain. Pharmacy has been consulted for glycemic management while he is admitted. * Patient reportedly has not been taking any of his medications for at least the last few months (including his hyperglycemic medications). BSG on admit was 274mg/dL. Lantus 15 units SQ x 1 was ordered and a weight based bolus insulin regimen with a stress of 2 was started. * Fasting BSG was 214mg/dL this morning. Patient was NPO so did not immediately give a dose of basal insulin. BSG kamila to 233mg/dL at lunch and diet was started so an additional dose of Lantus 15 units SQ x 1 was ordered for today. The bolus insulin regimen will be continued without change but the upper end of the BSG goal range was decreased. PLAN FOR INPATIENT GLYCEMIC CONTROL: * Basal insulin * Lantus 30 units SQ Daily * Bolus insulin * NovoLog per scale ACHS or Q6hrs while NPO * Goal Range: Low 110 mg/dL - High 140 mg/dL * Correction Factor: 20 mg/dL/unit * Nutritional / Prandial insulin per carb ratio of 1 unit per 6 grams CHO consumed
[2024-11-09 10:51] LABS: INR 1.6 (0.9-1.1); Prothrombin Time 16.3 Seconds (9.0-12.0)
[2024-11-09 11:32] LABS: ANTI-Xa, UFH(UnfractionatedHep 0.42 IU/ml (0.3-0.7)
--- NOTE | 2024-11-09 13:36 | Hospitalist Progress Note ---
Date of Service November 09, 2024 Assessment & Plan (1) Chest pain: (2) CHF (congestive heart failure): (3) HFrEF (heart failure with reduced ejection fraction): (4) Hyperlipidemia: (5) Hypertension: (6) DM2 (diabetes mellitus, type 2): Plan The patient is a 54-year-old male who presented to the ED on with complaints of chest pain. Patient recently hospitalized in April 2024 with NSTEMI, s/p CABG, LV thrombus previously on warfarin/aspirin. Patient stopped taking his medications 2 months ago due to issues with affording medication Rule out ACS Hx CABG x3-2023 Hx LV thrombus Initial EKG without acute changes, Trop negative x 2, continue to trend Repeat echo, EKG in a.m., chest x-ray/chest CTA unremarkable Has been off of aspirin/warfarin x 2 months, INR subtherapeutic Initiated heparin drip on admission Echo - LV EF 50-55%, Septal motion is consistent w/ post-op state. There is a moderate sized apical and anteroseptal wall motion abnormality with hypokinesis to akinesis of the segments. Moderate sized LV apical thrombus. There is trace mitral regurg. - Cardiology consulted- - Resume GDMT - Aspirin 81 mg, atorvastatin 80 mg, metoprolol succinate 25 mg, lisinopril 2.5 mg daily. - cont IV heparin, coumadin resumed - now at 10mg today, monitor INR - current 1.6 11/06 stroke alert Initially contacted by RN pt had troubles w/ speech, on my eval, pt answers appropriately, speech fluent, no significant weakness in any extremities - some mild weakness in upper extremities b/l. no facial asymmetry. However pt reports peripheral vision loss (blurriness) in both eyes. Stroke alert called. Stat CT head, CTA head and neck ordered. [facility] stroke neurology called - pt on IV heparin - per Dr. Rollins will obtain brain MRI, will cont. IV heparin for now CT head - FINDINGS: No intracranial hemorrhage seen. No mass effect, midline shift, or hydrocephalus. There is mucosal thickening in the maxillary sinuses. No mastoid effusion. No skull fracture seen. IMPRESSION: No acute findings. CTA head and neck - IMPRESSION: 1. No arterial occlusion or high-grade stenosis. 2. 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 IMPRESSION: 1. No stenosis of the bilateral internal carotid or vertebral arteries. 2. Moderate noncalcified plaque within the left common carotid artery which results in mild long segment stenosis.3. No dissection within the neck. Brain MR - No acute intracranial abnormality. No acute or subacute infarct. Neurology consulted and discussed with - (1) Stroke-like symptoms: With visual changes inconsistent for a single visual field. Suspect a functional component low suspicion for seizures or migraine MRI of the brain is negative. CTA did not show any Significant occlusions of the patient has kept hemodynamic stability Plan No contraindication to continue heparin. Can transition to warfarin Consider intrinsic eye exam rule out microhemorrhages although less likely. - ophthalmology outpt follow up recommended Follow-up clinically and consider repeating MRI of the brain if symptoms do not improve CTA shows a 2mm A COM aneurysm that will need an outpatient follow up with neuroendovascular surgery . Please place a referral to neuroendovascular surgery at [facility]. Hx DM2: Off oral diabetic medications as well as insulin for months. - Current A1c 10.3% [facility] Glycemic pharmacy consulted Full code DVT prophylaxis: Heparin drip Admission and Anticipated Discharge Date Admission Date: November 04, 2024 Subjective Pt seen in follow up of chest pain hx of CAD s/p CABG, not taking meds for past 2 months hx of LV thrombus, currently on IV heparin Cardiology consulted Episode of speech disturbance and vision disturbance - reported peripheral vision loss (blurryness) in both eyes. Stroke alert called. Pt currently denies chest pain - except w/ certain movements. Denies shortness of breath, dizziness, lightheadedness. pt reports vision improved, said he had very blurry vision after his bypass surgery, which then somewhat improved but was having some blurry vision since. He was never seen by ophthalmology after this. Advised to follow up with them as outpt. Review of Systems Review of Systems: All systems reviewed & are unremarkable except as noted in Subjective Physical Exam Physical Exam: Constitutional: WD/WN, vitals as a renetta Eyes: conjunctivae jacobo l, anicteric scler ae,+peripheral vis ion loss (blurry) b/l - improved ENMT: external ear and n ose normal Neck: supple Respiratory: normal respiratory effort, decreased breath sounds Cardiovascular: RRR, no murmur, no edema Gastrointestinal ( Abdomen): normal bowel sound s, soft, nontender Musculoskeletal: moves extremities Skin: no rashes, warm an d dry Neurologic: awake, alert, answ ers appropriately, EOMI, no face pal sy, no dysarthria, moves extremities Psychiatric: Orientation: ramez portillo x 3 Results & Data Results & Data Vital Signs (Past 12 Hours) Vital Signs Temp Pulse Pulse Resp BP Pulse Ox O2 Del Method 11/09/24 11:30 36.7 C 79 18 120/65 97 Room Air 11/09/24 08:55 Room Air 11/09/24 08:00 36.6 C 70 16 118/78 95 Room Air 11/09/24 07:20 64 11/09/24 02:56 36.7 C 65 18 126/81 98 Room Air Laboratory Results 11/09/24 11/09/24 11/09/24 Range/Units 11:13 09:55 07:41 WBC (4.8-10.8) K/ul RBC (4.70-6.10) M/uL Hgb (14.0-18.0) g/dl Hct (42.0-52.0) % MCV (80.0-100.0) fL MCH (25.0-34.0) pg MCHC (32.0-36.0) g/dL RDW Std Deviation (36.4-46.3) fL RDW Coeff of Romelia (11.5-14.5) % Plt Count (130-400) K/uL MPV (9.4-12.4) fL PT 16.3 H (9.0-12.0) Seconds INR 1.6 H (0.9-1.1) Heparin Anti-Xa, Unfract 0.42 (0.3-0.7) IU/ml Sodium (136-145) mmol/L Potassium (3.5-5.1) mmol/L Chloride (98-107) mmol/L Carbon Dioxide (21-32) mmol/L Anion Gap (3-11) BUN (6-23) mg/dl Creatinine (0.6-1.4) mg/dl Est Cr Clr Drug Dosing ml/min eGFR BUN/Creatinine Ratio (10-20) Glucose (70-99(Fasting)) mg/dl POC Glucose 99 157 H (70-99) mg/dl Calcium (8.6-10.3) mg/dl Phosphorus (2.5-4.9) mg/dl Magnesium (1.7-2.4) mg/dl 11/09/24 11/08/24 11/08/24 Range/Units 05: 20:22 15:52 WBC 9.06 (4.8-10.8) K/ul RBC 5.12 (4.70-6.10) M/uL Hgb 15.0 (14.0-18.0) g/dl Hct 44.9 (42.0-52.0) % MCV 87.7 (80.0-100.0) fL MCH 29.3 (25.0-34.0) pg MCHC 33.4 (32.0-36.0) g/dL RDW Std Deviation 42.8 (36.4-46.3) fL RDW Coeff of [place] 13.4 (11.5-14.5) % Plt Count 179 (130-400) K/uL MPV 11.5 (9.4-12.4) fL PT (9.0-12.0) Seconds INR (0.9-1.1) Heparin Anti-Xa, Unfract (0.3-0.7) IU/ml Sodium 137 (136-145) mmol/L Potassium 4.4 (3.5-5.1) mmol/L Chloride 106 (98-107) mmol/L Carbon Dioxide 28 (21-32) mmol/L Anion Gap 3 (3-11) BUN 11 (6-23) mg/dl Creatinine 0.63 (0.6-1.4) mg/dl Est Cr Clr Drug Dosing 168.5 ml/min eGFR 113.04 BUN/Creatinine Ratio 17.5 (10-20) Glucose 175 H (70-99(Fasting)) mg/dl POC Glucose 191 H 101 H (70-99) mg/dl Calcium 10.0 (8.6-10.3) mg/dl Phosphorus 2.2 L (2.5-4.9) mg/dl Magnesium 1.9 (1.7-2.4) mg/dl Medications Administered Current Inpatient Medications Acetaminophen (Acetaminophen 325 Mg Tab) 650 mg PO Q4H PRN PRN Reason: Pain or Fever Stop: 12/04/24 19:59 Last Admin: 11/08/24 04:28 Dose: 650 mg Aspirin (Aspirin 81 Mg Ectab) 81 mg PO DAILY [facility] Stop: 12/05/24 08:59 Last Admin: 11/09/24 08:34 Dose: 81 mg Atorvastatin Calcium (Atorvastatin 40 Mg Tab) 80 mg PO DAILY [facility] Stop: 12/05/24 08:59 Last Admin: 11/09/24 08:35 Dose: 80 mg Dextrose (Dextrose 50% 50 Ml Syringe) 25 - 50 ml IV UD PRN; Protocol PRN Reason: Hypoglycemia Protocol Stop: 12/04/24 16:23 Diclofenac Sodium (Diclofenac Sod 1% Gel 100 Gm Tube) 2 gm EXT QID PRN; Protocol PRN Reason: Pain Stop: 12/06/24 13:52 Last Admin: 11/09/24 08:45 Dose: 2 gm Glucagon (Glucagon For Inj 1 Mg Vial) 1 mg SQ UD PRN; Protocol PRN Reason: Hypoglycemia Protocol Stop: 12/04/24 16:23 Glucose (Glucose 40% Gel 15 Gm Tube) 15 - 30 gm PO UD PRN; Protocol PRN Reason: Hypoglycemia Protocol Stop: 12/04/24 16:23 Glucose (Glucose 10 Tab/Tube) 4 - 8 tab PO UD PRN; Protocol PRN Reason: Hypoglycemia Protocol Stop: 12/04/24 16:23 Heparin Sodium/Dextrose (Heparin 84674 Unit/500 Ml D5w) 25,000 units in 500 mls @ 38 mls/hr IV .[id number] [facility]; Protocol Stop: 12/04/24 17:29 Last Titration: 11/09/24 10:00 Dose: 1,900 units/hr, 38 mls/hr Insulin Aspart (Insulin Aspart Per Unit Charge) 0 units SC ACHS [facility] Stop: 12/04/24 16:29 Last Admin: 11/09/24 12:29 Dose: 5 units Insulin Glargine (Lantus Per Unit Charge) 30 units SQ DAILY [facility] Stop: 12/08/24 08:59 Last Admin: 11/09/24 08:51 Dose: 30 units Lisinopril (Lisinopril 2.5 Mg Tab) [facility] Stop: 12/05/24 08:59 Last Admin: 11/09/24 08:35 Dose: 2.5 mg Metoprolol Succinate (Metoprolol Succ 25mg Ext Rel Tab) [facility] Stop: 12/04/24 19:59 Last Admin: 11/09/24 08:34 Dose: 25 mg Miscellaneous (Carbohydrates For Hypoglycemia ) 15 - 30 gm PO UD PRN PRN Reason: Hypoglycemia Protocol Stop: 12/04/24 16:23 Miscellaneous Information (Pharmacy Glycemic Mgmt Consult) 1 each N/A UD PRN PRN Reason: Consult Stop: 12/04/24 16:23 Nitroglycerin (Nitroglycerin Sl 0.4 Mg/Tab Tab) 0.4 mg SL Q5M PRN PRN Reason: Chest Pain Stop: 12/04/24 13:30 Last Admin: 11/04/24 18:10 Dose: 0.4 mg Warfarin Sodium (Warfarin Sod 10 Mg Tab) 10 mg PO DAILY@1600 [facility] Stop: 12/06/24 15:59 Last Admin: 11/08/24 16:42 Dose: 10 mg (1) Chest pain Chest pain type: unspecified Qualified Code(s): R07.9 - Chest pain, unspecified (5) Hypertension Hypertension type: primary hypertension Qualified Code(s): I10 - Essential (primary) hypertension
[2024-11-10 06:30] LABS: Hematocrit (blood only) 43.9 % (42.0-52.0); Hemoglobin 14.7 g/dl (14.0-18.0); Mean Corpuscular Hemoglobin 29.5 pg (25.0-34.0); Mean Corpuscular Hgb Conc 33.5 g/dL (32.0-36.0); Mean Platelet Volume 11.2 fL (9.4-12.4); Platelet Count 161 K/uL (130-400); RDW Coefficient of Variation 13.5 % (11.5-14.5); RDW Standard Deviation 43.5 fL (36.4-46.3); Red Blood Count 4.99 M/uL (4.70-6.10); White Blood Count 9.41 K/ul (4.8-10.8)
[2024-11-10 06:58] LABS: ANTI-Xa, UFH(UnfractionatedHep 0.46 IU/ml (0.3-0.7); INR 1.7 (0.9-1.1); Prothrombin Time 17.3 Seconds (9.0-12.0)
[2024-11-10 06:59] LABS: BUN Creatinine Ratio 15.4 (10-20); Calcium 10.1 mg/dl (8.6-10.3); Creatinine Clr Calc Pharmacy 163.5 ml/min; Magnesium 1.9 mg/dl (1.7-2.4); Phosphorus 2.3 mg/dl (2.5-4.9); Potassium 4.4 mmol/L (3.5-5.1)
--- NOTE | 2024-11-10 08:57 | Communication Note ---
Date of Service: November 10, 2024 Patient currently hospitalized awaiting therapeutic INR and transition from heparin to PO warfarin. H/H stable INR today 1.7. Would recommend Patient receive Warfarin 10mg PO today. Goal INR for discharge is 2.0-3.0, and will be appropriate for discharge at that time. patient is to follow up outpatient with cardiology in 3-4 weeks. Our office will contact patient. Patient will also need to follow with our [facility]. OP referral has also been placed. Case Discussed with Dr. Catherine. thank you, [facility]
--- NOTE | 2024-11-10 15:04 | Hospitalist Progress Note ---
Date of Service November 10, 2024 Assessment & Plan (1) Atypical chest pain: (2) CAD (coronary artery disease): (3) LV (left ventricular) mural thrombus: (4) Chronic heart failure with preserved ejection fraction: (5) DM2 (diabetes mellitus, type 2): (6) Anterior communicating artery aneurysm: (7) Non compliance w medication regimen: (8) Visual field defect of both eyes: Plan Patient initially admitted for chest pain, ruled out for acute coronary syndrome. Patient noncompliant with his medical regiment and noted to have a subtherapeutic INR with known left ventricular thrombus. Continue IV heparin until INR therapeutic Continue warfarin dosing Continue to stress importance of taking medications as prescribed Continue goal-directed medical therapy for his heart failure. Despite noncompliance with medications his EF has improved to a normal range. Patient had acute visual field deficit, however does not match with any perfusion patterns. Suspected may be a functional deficit per neurology evaluation. Outpatient neurovascular eval for his anterior communicating artery aneurysm Continue to monitor glucose and manage diabetes with insulin Okay to [facility] Admission and Anticipated Discharge Date Admission Date: November 04, 2024 Subjective No acute issues overnight Physical Exam Physical Exam: Constitutional: Alert HEENT: Mucous membranes moist. Lungs: Clear to auscultation, decreased, no wheezes rales or rhonchi CV: S1-S2, regular Abdomen: Soft, nontender, nondistended Extremities: No significant edema Neuro: No focal deficits Psych: Cooperative, normal mood Results & Data Results & Data Vital Signs (Past 12 Hours) Vital Signs Temp Pulse Pulse Resp BP Pulse Ox O2 Del Method 11/10/24 13:59 60 11/10/24 11:00 36.6 C 81 18 116/63 97 Room Air 11/10/24 07:47 36.5 C 70 20 108/75 96 Room Air 11/10/24 07:10 Room Air 11/10/24 07:10 61 11/10/24 03:12 36.5 C 63 19 112/77 97 Room Air Diagnostic Findings Reviewed imaging, laboratory and diagnostic studies. Pertinent findings as below. CBC BMP stable Glucose was reviewed INR 1.7 (2) CAD (coronary artery disease) Coronary Disease-Associated Artery/Lesion type: [place] artery [place] vs. transplanted heart: [place] heart Associated angina: unspecified whether angina present Qualified Code(s): I25.10 - Atherosclerotic heart disease of [place] coronary artery without angina pectoris
[2024-11-11 09:16] LABS: ANTI-Xa, UFH(UnfractionatedHep 0.48 IU/ml (0.3-0.7); INR 1.8 (0.9-1.1)
--- NOTE | 2024-11-11 09:21 | Pharmacy Report ---
Pharmacy Glycemic Short Note 2 - Date of Service November 11, 2024 - Glycemic Short BSG Results (Last 24 hours): 11/10/24 11/10/24 11/10/24 11:20 16:22 20:27 POC Glucose 172 H 132 H 142 H 11/11/24 07:59 POC Glucose 150 H OUTPATIENT ANTIDIABETIC REGIMEN: * Lantus prescribed but reportedly has not been using HbA1c: 10.3% on 11/05/24, previous HbA1c from 03/30/24 was 10.9% ASSESSMENT: 11/11/24: * Blood sugars very well-controlled yesterday, ranging 114-142 mg/dL * Received 66 units of insulin (30 units of basal and 36 units of bolus) * Heparin gtt has now been discontinued * Do not anticipate any changes to glycemic regimen today 11/09 * Isael received 66 units of insulin yesterday (30 were bolus) * Fasting BSG this AM acceptable, basal insulin increased yesterday, will continue current regimen * No changes to NovoLog at this time, he continues on a heparin drip 11/08 * Isael received a total of 70 units of insulin yesterday (25 units were basal and 45 units were bolus). BSGs were at goal after tightening CR with breakfast and increasing basal from 20 to 25 units. * Fasting today 201mg/dL. Increase Lantus dose further. No other changes needed at this time. Patient remains on heparin drip. 11/06 * Isael received a total of 44 units of insulin yesterday (15 units were basal and 29 units were bolus). BSGs were still above goal ([phone]/dL) * Fasting BSG was 266mg/dL. Lantus dose was increased and CR was tightened for the bolus insulin. 11/05 * 54 year old male admitted yesterday with chest pain. Pharmacy has been consulted for glycemic management while he is admitted. * Patient reportedly has not been taking any of his medications for at least the last few months (including his hyperglycemic medications). BSG on admit was 274mg/dL. Lantus 15 units SQ x 1 was ordered and a weight based bolus insulin regimen with a stress of 2 was started. * Fasting BSG was 214mg/dL this morning. Patient was NPO so did not immediately give a dose of basal insulin. BSG kamila to 233mg/dL at lunch and diet was started so an additional dose of Lantus 15 units SQ x 1 was ordered for today. The bolus insulin regimen will be continued without change but the upper end of the BSG goal range was decreased. PLAN FOR INPATIENT GLYCEMIC CONTROL: * Basal insulin * Lantus 30 units SQ daily * Bolus insulin * NovoLog per scale ACHS or Q6hrs while NPO * Goal Range: Low 110 mg/dL - High 140 mg/dL * Correction Factor: 20 mg/dL/unit * Nutritional / Prandial insulin per carb ratio of 1 unit per 6 grams CHO consumed
[2024-11-11] MEDS ORDERED: ENOXAPARIN 1 MG/KG SC SCH (10:00)
--- NOTE | 2024-11-11 10:01 | Hospitalist Progress Note ---
Date of Service November 11, 2024 Assessment & Plan (1) Atypical chest pain: (2) CAD (coronary artery disease): (3) LV (left ventricular) mural thrombus: (4) Chronic heart failure with preserved ejection fraction: (5) DM2 (diabetes mellitus, type 2): (6) Anterior communicating artery aneurysm: (7) Non compliance w medication regimen: (8) Visual field defect of both eyes: Plan Patient with some mild symptomatic hypotension this morning. Lisinopril and metoprolol held. Small fluid bolus Discontinue lisinopril Decrease metoprolol dose INR still subtherapeutic, heparin bag is emptying now. Will transition to subcutaneous Lovenox and continue warfarin dosing. Continue to monitor INR Continue monitor glucose, manage with insulin Encouraged ambulation if feeling better this afternoon. Discharge anticipated when INR therapeutic Admission and Anticipated Discharge Date Admission Date: November 04, 2024 Subjective Patient reporting feeling a little bit dizzy today, blood pressure on the low side. Metoprolol held per parameters. Physical Exam Physical Exam: Constitutional: Alert, nontoxic HEENT: Mucous membranes moist. Lungs: Clear to auscultation, decreased, no wheezes rales or rhonchi CV: S1-S2, regular Abdomen: Soft, nontender, nondistended Extremities: No significant edema Neuro: No focal deficits Psych: Cooperative, normal mood Results & Data Results & Data Vital Signs (Past 12 Hours) Vital Signs Temp Pulse Resp BP Pulse Ox O2 Del Method 11/11/24 07:40 36.4 C L 61 16 99/69 L 100 Room Air Diagnostic Findings Reviewed imaging, laboratory and diagnostic studies. Pertinent findings as below. INR 1.8 Glucose 150 (2) CAD (coronary artery disease) Coronary Disease-Associated Artery/Lesion type: [place] artery [place] vs. transplanted heart: [place] heart Associated angina: unspecified whether angina present Qualified Code(s): I25.10 - Atherosclerotic heart disease of [place] coronary artery without angina pectoris
[2024-11-11] MEDS: SODIUM CHLORIDE 0.9% 250 ML IV ONE (10:22)
[2024-11-11] MEDS: ENOXAPARIN 100 MG/1ML SYR SQ SCH (11:35)
--- NOTE | 2024-11-12 05:39 | Communication Note ---
Date of Service: November 12, 2024
--- NOTE | 2024-11-12 06:58 | XRay Report ---
EXAM: XR chest 1V portable CLINICAL HISTORY: Shortness of breath. TECHNIQUE: An X-ray image of the chest is obtained in AP projection. COMPARISON: CR dated X-rays on 11/04/2024 and 04/03/2024. FINDINGS: Pulmonary Parenchyma: Biateral prominent bronchovascular markings and fortunato suggest pulmonary edema Haziness in the right upper chest, likely due to overlapping artifacts due to patient tilt. No evidence of consolidation, or collapse. No pulmonary nodules are identified. No evidence of pleural effusion or pleural thickening. Heart and Mediastinum: Enlarged heart size with mildly congested bi-hilar pulmonary vessels. No mediastinal widening or masses. No hilar or mediastinal lymphadenopathy. Bony Thorax: Anterior sternal metallic wires indicate the previous sternotomy. The bony thorax appears intact without fractures or deformities. Soft Tissues: Soft tissues overlying the chest wall are unremarkable. IMPRESSION: 1. Interval mild improvement of the interstitial markings of both lungs, compared to the study dated 04/03/2024, unchanged compared to 11/04/2024. 2. No acute cardiopulmonary abnormalities are identified. Electronically signed by Jameson Nicholson 11-12-2024 06:57 AM
[2024-11-12 07:35] LABS: INR 2.5 (0.9-1.1); Partial Thromboplastin Ratio 1.7; Partial Thromboplastin Time 45 Seconds (21-31); Prothrombin Time 24.9 Seconds (9.0-12.0)
[2024-11-12 07:37] VITALS: RESP 16; TEMP 97.7; O2SAT 98
[2024-11-12] MEDS: METOPROLOL SUCC 25MG EXT REL TAB PO SCH (08:27)
[2024-11-12] MEDS: LANTUS PER UNIT CHARGE SQ SCH (08:32)
--- NOTE | 2024-11-12 10:22 | Discharge Summary ---
Discharge Summary Date of Service November 12, 2024 Principal Dx & Hospital Course #1 = Principal Diagnosis (1) Atypical chest pain: (2) CAD (coronary artery disease): (3) LV (left ventricular) mural thrombus: (4) Chronic heart failure with preserved ejection fraction: (5) DM2 (diabetes mellitus, type 2): (6) Anterior communicating artery aneurysm: (7) Non compliance w medication regimen: (8) Visual field defect of both eyes: Plan Patient is a 54-year-old gentleman who presented to the emergency room with complaints of chest pain. Patient just had a recent history of non-STEMI and CABG within the past several months. Patient also reportedly is having issues with getting his medications and had not been taking any of his meds for over 2 months including any diabetes medications and cardiac meds. With this history patient was admitted to the hospital for further evaluation. His troponins were trended and were negative x 4 sets. Cardiology consultation was obtained. Echocardiogram was repeated which showed that his decreased ejection fraction had normalized. His chest pain appeared to be atypical and not related to his heart. Cardiology recommended trying to maximize goal-directed medical therapy for his heart failure and coronary artery disease. Attempts are made to get him on BASSAM inhibitor beta-jie aspirin therapy. Patient did not tolerate all those meds due to blood pressure. Ultimately tolerating low-dose beta-jie. Patient also had his diabetes managed with insulin. His hemoglobin A1c was greater than 10%. parent educator came to see the patient as well. Patient states that he would not take any injections but was agreeable to metformin and Jardiance. It was confirmed that the Jardiance would be affordable for him. Patient also has known to have a left ventricular thrombus. This was confirmed on his echocardiogram this hospitalization. Patient had not been taking any warfarin. It was decided to start him on IV heparin. And subsequently started on oral warfarin. The remainder the patient's hospital stay was essentially awaiting his INR to become therapeutic. During this time he did have a stroke alert he complained of a visual field defect. Patient was evaluated there is no acute findings on head imaging. Neurology consultation was obtained. His visual field deficits did not correlate with any standard perfusion blood flow. Was highly suspected that this was a functional complaint of visual field deficit. CTA of the head did show a small anterior communicating artery aneurysm. This was asymptomatic. He however will need outpatient follow-up. Patient then also throughout his hospitalization started to have complaints intermittently of dizziness, foot numbness, arm numbness. All these were transient and highly suspicious for concerns for secondary gain. We were then notified during his hospitalization that patient was being sought after long enforcement. There were official along enforcement documents on the patient's chart indicating that they should be notified at the time of discharge. On the day of discharge patient's INR was therapeutic. His vital signs were stable. His blood pressure was stable. Laboratory studies and stabilized. He was no longer requiring hospital level care. We coordinating outpatient follow-up with cardiology and with neurovascular surgery. And he will be discharged to outpatient care and with notification along for cement. Notes For Next Care Provider Recommend PT/INR on Saturday Follow-up with cardiology Follow-up with neurovascular surgery Medication Changes From Visit Warfarin started 7.5 mg Metformin 750 mg daily Jardiance 10 mg daily Metoprolol XL replaced his Coreg which she had not been taking Lipitor 80 mg dose increased Entresto discontinued, patient could not afford or willing to take Admission HPI Per Admitting Provider The patient is a 54-year-old male with a past medical history of DM2, CABG x 3LIMALAD, AoPDA using reverse saphenous vein, [id number], LV thrombuspreviously on warfarin and aspirin, former smoker who presents to the ED on with complaints of left-sided chest pain. Patient reports getting up this morning and taking the trash out and feeling okay. He reports laying in the passenger seat of his brother's car and the next thing he remembers is waking up and having chest pain and shortness of breath. He then came to the emergency room. Patient reports issues with money and getting medications. He reports that he has not been taking any of his cardiac medications over the past 2 months. Reports intermittent chest pain and shortness of breath with movement over the past month or so. He also has not been taking any medications for his diabetes and not checking his sugars. He denies any nausea/vomiting/diarrhea. He denies any abdominal pain. Denies any open wounds. Denies any recent respiratory virus. Does report a dry intermittent cough but denies any sputum production. Chest x-ray is negative Chest CTA is negative for PE/pneumonia EKG without any acute changes Labs remarkable for glucose 340, calcium 10.6, D-dimer 570, pH 7.55, CO2 26, WBC 11 The patient will be admitted for ACS rule out and further management of chest pain Admission Exam Per Admitting Provider See H&P Discharge Exam Constitutional: Alert HEENT: Mucous membranes moist. Lungs: Clear to auscultation, decreased, no wheezes rales or rhonchi CV: S1-S2, regular Abdomen: Soft, nontender, nondistended Extremities: No significant edema Neuro: No focal deficits Psych: Cooperative, normal mood Updated Medication List Medication Instructions Recorded Confirmed Type blood sugar diagnostic (OneTouch #50 ea 09/06/20 04/03/24 Rx Verio test strips) blood-glucose meter (OneTouch #1 ea 09/06/20 04/03/24 Rx Verio Flex Start kit) lancets 33 gauge (OneTouch Delica #100 ea 09/06/20 04/03/24 Rx Lancets) aspirin 81 mg tablet,delayed 81 mg PO UD 11/04/24 11/04/24 History release atorvastatin 40 mg tablet 40 mg PO 11/04/24 11/04/24 History carvedilol 3.125 mg tablet 3.125 mg PO UD 11/04/24 11/04/24 History furosemide 20 mg tablet 20 mg PO UD 11/04/24 11/04/24 History insulin glargine 100 unit/mL 10 unit subcut 11/04/24 11/04/24 History subcutaneous solution (Lantus U-100 Insulin) sacubitril 24 mg-valsartan 26 mg 1 tab PO UD 11/04/24 11/04/24 History tablet (Entresto) atorvastatin 80 mg tablet (Lipitor) 80 mg PO DAILY #30 tabs 11/11/24 Rx blood sugar diagnostic (OneTouch #100 ea 11/11/24 Rx Ultra Test strips) blood-glucose meter (OneTouch #1 ea 11/11/24 Rx Ultra2 Meter) blood-glucose sensor (FreeStyle #1 ea 11/11/24 Rx Megan 3 Plus Sensor device) blood-glucose,mat man,cont #1 ea 11/11/24 Rx (FreeStyle Megan 3 [place]) empagliflozin 10 mg tablet 10 mg PO DAILY #30 tabs 11/11/24 Rx (Jardiance) lancets 33 gauge #100 ea 11/11/24 Rx metformin 750 mg tablet 750 mg PO DAILY #30 tabs 11/11/24 Rx metoprolol succinate 25 mg 12.5 mg (1/2 x 25 mg) PO QAM #30 11/11/24 Rx tablet,extended release 24 hr tabs warfarin 5 mg tablet 7.5 mg (1.5 x 5 mg) PO DAILY #60 11/12/24 Rx tabs Hospital Stay Data Consultations 11/04/24 16:07 ED Decision to Admit Stat 11/04/24 16:59 Consult Cardiology Routine 11/06/24 09:42 Consult Neurology Routine Diagnostic Imagining Performed 11/04/24 14:50 CT angio chest PE protocol Stat 11/06/24 08:40 CT head/brain wo con Stat 11/06/24 08:47 CT angio head w con Stat CT angio neck with con Stat 11/06/24 09:13 MR brain wo con Stat Pending Results Patient Have Any Pending Studies at Discharge: No Discharge Instructions Given to Patient (Per Discharging Provider) Have your INR checked on Saturday Follow-up with your PCP Follow-up with neuro vascular surgery Total Time Total Time Spent Total Time Spent (In Minutes): 36
[2024-11-12 11:02] VITALS: BP 101/65; PULSE 88
== END 2024-11-12 13:37 | disposition home or self-care (01) | DRG 313 ==
LOC: ED 13:18 → 2S 17:41 → SUATTDRO 17:41 → 2S 20:22 → 3W 11-10 20:13

== ENCOUNTER 2025-07-02 14:35 | Inpatient (IN) ==
--- NOTE | 2025-07-02 14:44 | Emergency Department Note ---
Impression & Plan Chest pain, [place] ED Provider Note CHIEF COMPLAINT: Chest pain HISTORY OF PRESENTING ILLNESS: The patient is a 55-year-old male past medical history hypertension, hyperlipidemia, DM2, NSTEMI, HFrEF, CHF, noncompliance, as well as others, who arrives to the emergency department via EMS for evaluation of midsternal chest pain, radiating to his right arm, and his back. Patient states the pain began approximately 1 hour ago. He reports he is currently living in his car, and states he also is having some numbness and tingling in his toes. He reports he does have a past medical history of a CABG that was performed in [place] in April, and he states he has not been taking his daily medications since the event. Patient was given 324 of aspirin and route by EMS prior to arrival. Patient has tachycardia upon arrival, however otherwise stable vital signs. REVIEW OF SYSTEMS: See HPI for pertinent positives and pertinent negatives. ALLERGIES: See below MEDICATIONS: See below PAST MEDICAL HISTORY: See below PHYSICAL EXAM: VITALS: Vitals are noted on the nurse's note and reviewed by myself. Vital signs stable. GENERAL: 55-year-old male, in mild distress, unkempt. SKIN: Bluish-agosto discoloration to the bilateral digits of the feet. HEAD: Normocephalic atraumatic. NECK: Supple without nuchal rigidity. No lymphadenopathy. Cervical spine is nontender. No JVD. HEART: Regular rate and rhythm without murmurs gallops or rubs. LUNGS: Clear to auscultation bilaterally without wheezes, rales or rhonchi. No retractions or accessory muscle use. ABDOMEN: Positive bowel sounds x 4. Soft, nontender, without masses or organomegaly. Cardoso sign negative. No guarding or rebound tenderness. MUSCULOSKELETAL: No muscle atrophy, erythema, or edema noted. Loss of sensation bilateral lower feet, and digits of bilateral feet. DP pulses intact bilaterally. NEURO: Patient was alert and oriented to person place and time. No focal neurological deficits. DIFFERENTIAL DIAGNOSIS: Cardiac ischemia, aortic dissection, pulmonary embolism, pneumothorax, pneumonia, pericarditis, myocarditis, esophageal rupture, GERD, cholecystitis, pancreatitis, musculoskeletal, frostbite, necrosis, necrotizing fasciitis, infection, cellulitis as well as other pathologies. ED COURSE AND MEDICAL DECISION MAKING: MEDICATIONS GIVEN: 1 L NSS bolus, warmed fluids MONITOR: Continuous director of cardiac rehabilitation: Order was placed for continuous director of cardiac rehabilitation. Patient was placed on the director of cardiac rehabilitation and continuous pulse ox. Patient was noted to be in normal sinus rhythm at an initial rate of 102 bpm per my interpretation. EKG: EKG was interpreted by myself as sinus tachycardia, slight ST elevation, likely early repolarization. INTERPRETATION OF LABS: I interpreted the labs with full lab results as below in the lab section of this note. Pertinent lab results discussed in the MDM section below. INTERPRETATION OF IMAGING: Imaging studies were interpreted by myself and read by radiology as per the imaging section of this note. CHRONIC MEDICAL/SOCIAL CONDITIONS AFFECTING CARE: CABG, NSTEMI, homeless MDM SUMMARY: The patient is a pleasant, 55-year-old male who arrives to the emergency department for evaluation of the above-stated complaint. Saline lock was established, lab work was obtained. CBC shows leukocytosis 14.59, stable chronic anemia. CMP shows elevated BUN, creatinine within normal limits. Initial troponin 22.6, repeat 21.0. Urinalysis shows 4+ ketones, and 3+ glucose, no signs of infection. Chest x-ray imaging per my interpretation shows no acute cardiopulmonary process. EKG interpreted as noted above. Due to the patient's past medical history of CABG, with current chest pain, abnormal EKG, and slight elevation in troponin, the patient will require admission to the hospitalist services. Bilateral feet were warmed with warm tap water, as well as patient was placed on a Viridiana hugger. Patient will require treatment for frostbite of the digits, and further evaluation, likely from podiatry/orthopedics. The patient was admitted to the [facility] hospitalist services. Please refer to their documentation for further patient workup and care. DIAGNOSIS: Chest pain, frostbite The chart was completed utilizing [employer] Speech voice recognition software. Grammatical errors, random word insertions, pronoun errors, and incomplete sentences are an occasional consequence of this system due to software limitations, ambient noise, and hardware issues. Any formal questions or concerns about the content, text, or information contained within the body of this dictation should be directly addressed to the provider for clarification. Past Med/Surg History Problem List Persistent adjustment disorder Frostbite (Acute) CAD (coronary artery disease) Hyperlipidemia Heart failure with reduced ejection fraction Hypertension Diabetes mellitus Chest pain (Acute) Visual field defect of both eyes Anterior communicating artery aneurysm Chronic heart failure with preserved ejection fraction Stroke-like symptoms Non compliance w medication regimen LV (left ventricular) mural thrombus CAD (coronary artery disease) Atypical chest pain Chest pain (Acute) CHF (congestive heart failure) (Acute) Acute non-ST elevation myocardial infarction (NSTEMI) (Acute) HFrEF (heart failure with reduced ejection fraction) Hyperlipidemia Hypertension CAP (community acquired pneumonia) DM2 (diabetes mellitus, type 2) NSTEMI (non-ST elevated myocardial infarction) Flash pulmonary edema (Acute) Allergic reaction (Acute) Medical History Major depressive disorder LV dysfunction NSTEMI (non-ST elevated myocardial infarction) Medical non-compliance Chronic low back pain Diabetes mellitus Scabies Surgical History Hx of CABG No history of previous surgery Family History Denies family history of Ovarian cancer Prostate cancer Myocardial infarction Breast cancer Colorectal cancer Social History Smoking Status: Current every day smoker Tobacco Type: Cigarettes Age Started Using Tobacco: 30; Age Quit Using Tobacco: 50; packs per day: 2; Cigarettes Per Day: 20; Second Hand Exposure: No; Do You Dip or Chew Tobacco: No; Hx Alcohol Use: No Hx Substance Use: No Preferred Language: Spanish Communication Ability: Effective Visual Impairment: No Limitations Hearing Ability: Normal 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 Beliefs That Will Affect Care: None marital status: Single Current Living Situation: Alone Current Living Situation Comment: lives in his car current occupational status: employed current occupation: [employer] Feels Safe at Home: Yes and Hesitant to Answer Childhood Exposure to Second-Hand Smoke: Yes Diet: regular caffeine: No during the past year weight has: decreased > 10 lbs Dental Care, Regularly: Yes Physical Activity Frequency: Daily Sunscreen Use: No Assistive Devices: None Allergies Allergies Allergy/AdvReac Type Severity Reaction Status Date / Time No Known Allergies Allergy Verified 07/05/25 15:43 Home Meds Previous Rx's Medication Instructions Recorded aspirin 81 mg chewable tablet 81 mg PO DAILY 30 days #30 tabs 07/13/25 atorvastatin 80 mg tablet 80 mg PO DAILY #30 tabs 07/13/25 blood sugar diagnostic (True #50 ea 07/13/25 Metrix Glucose Test Strip) blood-glucose meter (True Metrix #1 ea 07/13/25 Glucose Meter) diclofenac sodium 1 % topical gel 1 ea topical UD PRN pain #50 grams 07/13/25 famotidine 20 mg tablet 20 mg PO BID #60 tabs 07/13/25 furosemide 40 mg tablet 40 mg PO DAILY #30 tabs 07/13/25 gabapentin 100 mg capsule 100 mg PO BID #60 caps 07/13/25 lancets 30 gauge (TRUEplus Lancets) #100 ea 07/13/25 lisinopril 20 mg tablet 20 mg PO DAILY #30 tabs 07/13/25 magnesium oxide 400 mg (241.3 mg 400 mg PO BID #60 tabs 07/13/25 magnesium) tablet metformin 500 mg tablet,extended 500 mg PO BID #60 tabs 07/13/25 release 24 hr metoprolol succinate 25 mg 25 mg PO DAILY #30 tabs 07/13/25 tablet,extended release 24 hr warfarin 5 mg tablet 10 mg (2 x 5 mg) PO DAILY #64 tabs 07/13/25 glipizide 10 mg tablet, extended 10 mg PO DAILY 30 days #30 tabs 07/14/25 release 24 hr Results & Data (ED) Vital Signs Vital Signs - 24 hr 07/02/25 14:34 07/02/25 14:46 07/02/25 15:01 Temperature 36.4 C L Temperature Source Oral Pulse Rate 97 H 97 H Pulse Rate [Apical] 99 H Pulse Rhythm Regular Regular Pulse Rhythm [Apical] Pulse Strength [Apical] Respiratory Rate 21 17 16 Respiratory Effort / Characteristics Non-Labored Non-Labored Spontaneous Respiratory Depth Normal Normal Respiratory Pattern Regular Blood Pressure 119/75 Blood Pressure [Right Arm] 119/75 Blood Pressure Mean 89 Blood Pressure Mean [Right Arm] 89 Blood Pressure Position [Right Arm] Sitting Pulse Oximetry 97 98 98 Oxygen Delivery Method Room Air Room Air Room Air Sepsis Recent Fever Within 48 Hours No Sepsis New/Unexplained Change in Mental Status No Sepsis Action Taken by Nursing No Action Required 07/02/25 15:15 07/02/25 15:30 07/02/25 15:35 Temperature 35.7 C L Temperature Source Rectal Pulse Rate Pulse Rate [Apical] 93 H 92 H Pulse Rhythm Pulse Rhythm [Apical] Regular Pulse Strength [Apical] Normal Respiratory Rate 23 20 Respiratory Effort / Characteristics Non-Labored Spontaneous Non-Labored Spontaneous Respiratory Depth Normal Normal Respiratory Pattern Regular Regular Blood Pressure Blood Pressure [Right Arm] 123/76 129/80 Blood Pressure Mean Blood Pressure Mean [Right Arm] 91 96 Blood Pressure Position [Right Arm] Sitting Sitting Pulse Oximetry 98 97 Oxygen Delivery Method Room Air Room Air Sepsis Recent Fever Within 48 Hours Sepsis New/Unexplained Change in Mental Status Sepsis Action Taken by Nursing 07/02/25 15:38 07/02/25 15:45 07/02/25 16:00 Temperature 35.7 C L Temperature Source Rectal Pulse Rate Pulse Rate [Apical] 90 91 H Pulse Rhythm Pulse Rhythm [Apical] Regular Pulse Strength [Apical] Normal Respiratory Rate 19 19 Respiratory Effort / Characteristics Non-Labored Spontaneous Non-Labored Spontaneous Respiratory Depth Normal Normal Respiratory Pattern Regular Regular Blood Pressure Blood Pressure [Right Arm] 98/77 L 144/82 H Blood Pressure Mean Blood Pressure Mean [Right Arm] 84 102 Blood Pressure Position [Right Arm] Sitting Sitting Pulse Oximetry 98 98 Oxygen Delivery Method Room Air Room Air Sepsis Recent Fever Within 48 Hours Sepsis New/Unexplained Change in Mental Status Sepsis Action Taken by Nursing 07/02/25 16:07 07/02/25 16:45 Temperature Temperature Source Pulse Rate 90 Pulse Rate [Apical] 95 H Pulse Rhythm Pulse Rhythm [Apical] Pulse Strength [Apical] Respiratory Rate 15 Respiratory Effort / Characteristics Non-Labored Spontaneous Respiratory Depth Normal Respiratory Pattern Regular Blood Pressure Blood Pressure [Right Arm] 144/90 H Blood Pressure Mean Blood Pressure Mean [Right Arm] 108 Blood Pressure Position [Right Arm] Sitting Pulse Oximetry 98 Oxygen Delivery Method Room Air Sepsis Recent Fever Within 48 Hours Sepsis New/Unexplained Change in Mental Status Sepsis Action Taken by [place] Medications Current Medication List: was personally reviewed by me Laboratory Data Attestation: I reviewed the patient's lab results. 07/13/25 06:42 07/13/25 06:42 Lab Results 07/02/25 Range/Units 14:58 WBC 14.59 H (4.8-10.8) K/ul RBC 5.61 (4.70-6.10) M/uL Hgb 16.6 (14.0-18.0) g/dL Hct 47.6 (42.0-52.0) % MCV 84.8 (80.0-100.0) fL MCH 29.6 (25.0-34.0) pg MCHC 34.9 (32.0-36.0) g/dL RDW Std Deviation 43.7 (36.4-46.3) fL RDW Coeff of Romelia 14.3 (11.5-14.5) % Plt Count 193 (130-400) K/uL MPV 11.1 (9.4-12.4) fL Immature Gran % (Auto) 0.5 % Neut % (Auto) 75.4 % Lymph % (Auto) 16.4 % [place] % (Auto) 6.7 % Eos % (Auto) 0.6 % Baso % (Auto) 0.4 % Neut # (Auto) 10.99 H (1.40-6.50) K/uL Lymph # (Auto) 2.40 (1.20-3.40) K/uL [place] # (Auto) 0.98 H (0.11-0.59) K/uL Eos # (Auto) 0.09 (0.00-0.50) K/uL Baso # (Auto) 0.06 (0.00-0.20) K/uL Immature Gran # (Auto) 0.07 (0.01-0.20) K/uL Sodium 134 L (136-145) mmol/L Potassium 5.0 (3.5-5.1) mmol/L Chloride 104 (98-107) mmol/L Carbon Dioxide 15 L (21-32) mmol/L Anion Gap 15 H (3-11) BUN 39 H (6-23) mg/dl Creatinine 0.84 (0.6-1.4) mg/dl Est Cr Clr Drug Dosing 119.4 ml/min eGFR 102.99 BUN/Creatinine Ratio 46.4 H (10-20) Glucose 328 H* (70-99(Fasting)) mg/dl Estimat Average Glucose 318 mg/dl Hemoglobin A1c 12.7 H (4.5-5.6) % Lactate 1.4 (0.4-2.0) mmol/L Calcium 10.8 H (8.6-10.3) mg/dl Magnesium 2.0 (1.7-2.4) mg/dl Total Bilirubin 0.4 (0.2-1.0) mg/dl Direct Bilirubin 0.1 (0-0.2) mg/dl AST 14 (13-39) U/L ALT 7 (7-52) U/L Alkaline Phosphatase 129 H (34-104) U/L Troponin I High Sens 22.6 H (0-20) pg/ml Total Protein 7.3 (6.0-8.3) gm/dl Albumin 4.0 (3.4-5.0) gm/dl Procalcitonin 0.08 (0-0.5) ng/ml Random Cortisol 16.81 mcg/dl Administered Medications Discontinued Medications Acetaminophen (Acetaminophen 325 Mg Tab) 650 mg PO Q4H PRN PRN Reason: Pain or Fever Stop: 08/01/25 19:38 Last Admin: 07/11/25 21:23 Dose: 650 mg Documented By: Admin: 07/10/25 22:08 Dose: 650 mg Documented By: Admin: 07/08/25 20:48 Dose: 650 mg Documented By: Admin: 07/07/25 21:38 Dose: 650 mg Documented By: Admin: 07/06/25 07:44 Dose: 650 mg Documented By: Admin: 07/02/25 21:08 Dose: 650 mg Documented By: HENRIQUE Atorvastatin Calcium (Atorvastatin 40 Mg Tab) 80 mg PO QAM DEREK Stop: 08/01/25 18:29 Last Admin: 07/14/25 09:00 Dose: 80 mg Documented By: dll Admin: 07/13/25 09:10 Dose: 80 mg Documented By: dll Admin: 07/12/25 08:19 Dose: 80 mg Documented By: Admin: 07/11/25 08:03 Dose: 80 mg Documented By: Admin: 07/10/25 08:56 Dose: 80 mg Documented By: Admin: 07/09/25 10:20 Dose: 80 mg Documented By: Admin: 07/08/25 08:49 Dose: 80 mg Documented By: Admin: 07/07/25 09:02 Dose: 80 mg Documented By: Admin: 07/06/25 08:19 Dose: 80 mg Documented By: Admin: 07/05/25 08:27 Dose: 80 mg Documented By: Admin: 07/04/25 08:29 Dose: 80 mg Documented By: Admin: 07/03/25 10:04 Dose: 80 mg Documented By: Admin: 07/02/25 20:34 Dose: 80 mg Documented By: HENRIQUE Furosemide (Furosemide 40 Mg Tab) 40 mg PO NOW ONE Stop: 07/05/25 16:11 Last Admin: 07/05/25 16:50 Dose: 40 mg Documented By: MICHAEL Furosemide (Furosemide 40 Mg Tab) 40 mg PO QAM DEREK Stop: 08/05/25 08:59 Last Admin: 07/14/25 09:00 Dose: 40 mg Documented By: leidy Admin: 07/13/25 09:10 Dose: 40 mg Documented By: leidy Admin: 07/12/25 08:19 Dose: 40 mg Documented By: Admin: 07/11/25 08:03 Dose: 40 mg Documented By: Admin: 07/10/25 08:56 Dose: 40 mg Documented By: Admin: 07/09/25 10:20 Dose: 40 mg Documented By: Admin: 07/08/25 08:49 Dose: 40 mg Documented By: Admin: 07/07/25 09:02 Dose: 40 mg Documented By: Admin: 07/06/25 08:20 Dose: 40 mg Documented By: MICHAEL Gabapentin (Gabapentin 100 Mg Cap) 100 mg PO NOW STA Stop: 07/07/25 01:17 Last Admin: 07/07/25 01:51 Dose: 100 mg Documented By: HENRIQUE Gabapentin (Gabapentin 100 Mg Cap) 100 mg PO BID DEREK Stop: 08/11/25 14:29 Last Admin: 07/14/25 09:00 Dose: 100 mg Documented By: leidy Admin: 07/13/25 22:19 Dose: 100 mg Documented By: Admin: 07/13/25 09:10 Dose: 100 mg Documented By: leidy Admin: 07/12/25 21:25 Dose: 100 mg Documented By: Admin: 07/12/25 15:24 Dose: 100 mg Documented By: ERIC Glipizide (Glipizide 5 Mg Tab) 5 mg PO QAM DEREK Stop: 08/13/25 08:59 Last Admin: 07/14/25 09:00 Dose: 5 mg Documented By: leidy Glipizide (Glipizide 5 Mg Tab) 5 mg PO NOW ONE Stop: 07/13/25 11:22 Last Admin: 07/13/25 11:49 Dose: 5 mg Documented By: leidy Heparin Sodium (Porcine) (Heparin Sod (Porcine) 1000 Unit/Ml) 4,000 units IV NOW ONE Stop: 07/02/25 19:01 Last Admin: 07/02/25 21:07 Dose: 4,000 units Documented By: HENRIQUE Co-signed By: DISHA Heparin Sodium (Porcine) (Heparin Sod (Porcine) 1000 Unit/Ml) 3,000 units IV NOW ONE; Protocol Stop: 07/03/25 04:01 Last Admin: 07/03/25 04:11 Dose: 3,000 units Documented By: HENRIQUE Co-signed By: ALFONSO Heparin Sodium (Porcine) (Heparin Sod (Porcine) 1000 Unit/Ml) 3,000 units IV ONE ONE Stop: 07/03/25 11:46 Last Admin: 07/03/25 12:04 Dose: 3,000 units Documented By: MARIANNE Co-signed By: Heparin Sodium (Porcine) (Heparin Sod (Porcine) 1000 Unit/Ml) 3,000 units IV NOW ONE Stop: 07/03/25 19:22 Last Admin: 07/03/25 19:51 Dose: 3,000 units Documented By: HENRIQUE Co-signed By: HOLLY Heparin Sodium (Porcine) (Heparin Sod (Porcine) 1000 Unit/Ml) 3,000 units IV NOW ONE Stop: 07/04/25 05:31 Last Admin: 07/04/25 05:35 Dose: 3,000 units Documented By: HENRIQUE Co-signed By: HOLLY Heparin Sodium (Porcine) (Heparin Sod (Porcine) 1000 Unit/Ml) 3,000 units IV NOW ONE Stop: 07/04/25 18:51 Last Admin: 07/04/25 19:56 Dose: 3,000 units Documented By: TP Co-signed By: DISHA Heparin Sodium/Dextrose (Heparin Iv Adult Wt-Based Low-Dose W/ Initial Bolus Protocol) 1 each IV NOW STA; Protocol Stop: 07/02/25 17:11 Last Admin: 07/02/25 20:33 Dose: 1 each Documented By: HENRIQUE Heparin Sodium/Dextrose (Heparin 72025 Unit/500 Ml D5w) Confirm Administered Dose 25,000 units IV .STK-MED ONE Stop: 07/02/25 18:50 Last Admin: 07/02/25 20:41 Dose: Not Given Documented By: HENRIQUE Sodium Chloride (Nss) 1,000 mls @ 999 mls/hr IV .Q1H1M DEREK Stop: 07/02/25 16:00 Last Infusion: 07/02/25 17:33 Dose: Infused Documented By: kmmartina Admin: 07/02/25 15:25 Dose: 999 mls/hr Documented By: kitty Sodium Chloride (Nss) 1,000 mls @ 999 mls/hr IV .Q1H1M ONE Stop: 07/02/25 16:50 Last Infusion: 07/02/25 20:45 Dose: Infused Documented By: Admin: 07/02/25 18:00 Dose: 999 mls/hr Documented By: LIZETH Heparin Sodium/Dextrose (Heparin 38895 Unit/500 Ml D5w) 25,000 units in 500 mls @ 45 mls/hr IV .Q11H7M [facility]; Protocol Stop: 08/01/25 18:59 Last Titration: 07/12/25 16:52 Dose: Infused Documented By: ERIC Co-signed By: allen Titration: 07/12/25 09:22 Dose: Infused Documented By: ERIC Co-signed By: dst Titration: 07/12/25 07:16 Dose: 2,250 units/hr, 45 mls/hr Documented By: HOLLY Co-signed By: ERIC Admin: 07/12/25 01:30 Dose: 2,150 units/hr, 43 mls/hr Documented By: HOLLY Co-signed By: drew Titration: 07/11/25 23:29 Dose: Infused Documented By: KRT Co-signed By: emmanuelw Titration: 07/11/25 19:29 Dose: 2,150 units/hr, 43 mls/hr Documented By: ANDREW Co-signed By: KRT Admin: 07/11/25 11:51 Dose: 2,150 units/hr, 43 mls/hr Documented By: ANDREW Co-signed By: Titration: 07/11/25 11:09 Dose: Infused Documented By: ANDREW Co-signed By: Titration: 07/11/25 07:48 Dose: 2,150 units/hr, 43 mls/hr Documented By: ANDREW Co-signed By: TRAE Admin: 07/10/25 23:31 Dose: 2,150 units/hr, 43 mls/hr Documented By: NAB Co-signed By: rmt Titration: 07/10/25 23:26 Dose: Infused Documented By: NAB Co-signed By: rmt Admin: 07/10/25 11:48 Dose: 2,150 units/hr, 43 mls/hr Documented By: ANDREW Co-signed By: KEK Titration: 07/10/25 11:48 Dose: Infused Documented By: ANDREW Co-signed By: KEK Titration: 07/10/25 06:54 Dose: 2,150 units/hr, 43 mls/hr Documented By: ANDREW Co-signed By: NAB Admin: 07/10/25 00:18 Dose: 2,150 units/hr, 43 mls/hr Documented By: NAB Co-signed By: CLC Titration: 07/10/25 00:03 Dose: Infused Documented By: NAB Co-signed By: CLC Titration: 07/09/25 18:53 Dose: 2,150 units/hr, 43 mls/hr Documented By: NAB Co-signed By: ANDREW Admin: 07/09/25 12:25 Dose: 2,150 units/hr, 43 mls/hr Documented By: ANDREW Co-signed By: MES Titration: 07/09/25 12:25 Dose: Infused Documented By: ANDREW Co-signed By: MES Titration: 07/09/25 06:53 Dose: 2,150 units/hr, 43 mls/hr Documented By: ANDREW Co-signed By: NAB Titration: 07/09/25 06:33 Dose: 2,150 units/hr, 43 mls/hr Documented By: NAB Co-signed By: rmt Admin: 07/09/25 01:40 Dose: 2,150 units/hr, 43 mls/hr Documented By: NAB Co-signed By: rmt Titration: 07/09/25 01:37 Dose: Infused Documented By: NAB Co-signed By: rmt Titration: 07/08/25 18:56 Dose: 2,150 units/hr, 43 mls/hr Documented By: ANDREW Co-signed By: NAB Admin: 07/08/25 13:59 Dose: 2,150 units/hr, 43 mls/hr Documented By: ANDREW Co-signed By: AAL Titration: 07/08/25 13:59 Dose: Infused Documented By: ANDREW Co-signed By: AAL Admin: 07/08/25 07:32 Dose: Not Given Documented By: Titration: 07/08/25 07:01 Dose: 2,150 units/hr, 43 mls/hr Documented By: ANDREW Co-signed By: HENRIQUE Admin: 07/08/25 02:25 Dose: 2,150 units/hr, 43 mls/hr Documented By: HENRIQUE Co-signed By: AMS Titration: 07/08/25 02:24 Dose: Infused Documented By: HENRIQUE Co-signed By: AMS Titration: 07/07/25 19:04 Dose: 2,150 units/hr, 43 mls/hr Documented By: TB Co-signed By: HENRIQUE Admin: 07/07/25 14:46 Dose: 2,150 units/hr, 43 mls/hr Documented By: TB Co-signed By: RNC Titration: 07/07/25 14:46 Dose: Infused Documented By: TB Co-signed By: RNC Titration: 07/07/25 07:15 Dose: 2,150 units/hr, 43 mls/hr Documented By: TB Co-signed By: HENRIQUE Admin: 07/07/25 03:24 Dose: 2,150 units/hr, 43 mls/hr Documented By: HENRIQUE Co-signed By: CEW Titration: 07/07/25 03:23 Dose: Infused Documented By: HENRIQUE Co-signed By: CEW Admin: 07/06/25 15:45 Dose: 2,150 units/hr, 43 mls/hr Documented By: NadiyaO Co-signed By: ARISTEO Titration: 07/06/25 15:45 Dose: Infused Documented By: OO Co-signed By: LENYN Titration: 07/06/25 06:52 Dose: 2,150 units/hr, 43 mls/hr Documented By: MICHAEL Co-signed By: HENRIQUE Admin: 07/06/25 04:31 Dose: 2,150 units/hr, 43 mls/hr Documented By: HENRIQUE Co-signed By: GTH Titration: 07/06/25 04:30 Dose: Infused Documented By: HENRIQUE Co-signed By: GTH Titration: 07/06/25 00:30 Dose: 2,150 units/hr, 43 mls/hr Documented By: HENRIQUE Co-signed By: GTH Titration: 07/05/25 15:50 Dose: 2,050 units/hr, 41 mls/hr Documented By: OO Co-signed By: KTS Admin: 07/05/25 15:25 Dose: 1,950 units/hr, 39 mls/hr Documented By: OO Co-signed By: KJS Titration: 07/05/25 15:25 Dose: Infused Documented By: OO Co-signed By: KJS Titration: 07/05/25 08:10 Dose: 1,950 units/hr, 39 mls/hr Documented By: OO Co-signed By: KJS Titration: 07/05/25 07:05 Dose: 1,850 units/hr, 37 mls/hr Documented By: OO Co-signed By: TP Admin: 07/05/25 06:21 Dose: 1,850 units/hr, 37 mls/hr Documented By: TP Co-signed By: GTH Titration: 07/05/25 06:21 Dose: Infused Documented By: TP Co-signed By: GTH Admin: 07/04/25 19:56 Dose: 1,850 units/hr, 37 mls/hr Documented By: TP Co-signed By: GTH Titration: 07/04/25 19:56 Dose: Infused Documented By: TP Co-signed By: GTH Titration: 07/04/25 19:01 Dose: 1,850 units/hr, 37 mls/hr Documented By: TP Co-signed By: NMK Titration: 07/04/25 18:44 Dose: 1,850 units/hr, 37 mls/hr Documented By: NMK Co-signed By: LAF Admin: 07/04/25 12:30 Dose: Not Given Documented By: Admin: 07/04/25 11:41 Dose: 1,700 units/hr, 34 mls/hr Documented By: NMK Co-signed By: ENS Titration: 07/04/25 10:50 Dose: Infused Documented By: NMK Co-signed By: ENS Admin: 07/04/25 09:43 Dose: Not Given Documented By: Titration: 07/04/25 05:03 Dose: 1,600 units/hr, 32 mls/hr Documented By: HENRIQUE Co-signed By: KRT Titration: 07/03/25 19:51 Dose: 1,450 units/hr, 29 mls/hr Documented By: HENRIQUE Co-signed By: KRT Admin: 07/03/25 17:59 Dose: 1,300 units/hr, 26 mls/hr Documented By: MARIANNE Co-signed By: KJS Titration: 07/03/25 17:59 Dose: Infused Documented By: MARIANNE Co-signed By: KJS Titration: 07/03/25 12:04 Dose: 1,300 units/hr, 26 mls/hr Documented By: MARIANNE Co-signed By: ENS Titration: 07/03/25 04:12 Dose: 1,150 units/hr, 23 mls/hr Documented By: HENRIQUE Co-signed By: ALFONSO Admin: 07/02/25 20:28 Dose: 1,000 units/hr, 20 mls/hr Documented By: HENRIQUE Co-signed By: PAH Insulin Human Regular 250 (units/ Sodium Chloride) 250 mls @ 0 mls/hr IV .Q0M [facility]; Protocol Stop: 08/01/25 19:14 Last Titration: 07/03/25 13:37 Dose: Infused Documented By: MARIANNE Co-signed By: LAF Titration: 07/03/25 10:10 Dose: 0 units/hr, 0 mls/hr Documented By: MARIANNE Co-signed By: elder Titration: 07/03/25 09:14 Dose: 2.9 units/hr, 2.9 mls/hr Documented By: MARIANNE Co-signed By: LAF Titration: 07/03/25 06:00 Dose: 3.6 units/hr, 3.6 mls/hr Documented By: HENRIQUE Co-signed By: GTH Titration: 07/03/25 05:31 Dose: 3.6 units/hr, 3.6 mls/hr Documented By: HENRIQUE Co-signed By: HDC Titration: 07/03/25 04:12 Dose: 3.6 units/hr, 3.6 mls/hr Documented By: HENRIQUE Co-signed By: ALFONSO Titration: 07/02/25 22:00 Dose: 6 units/hr, 6 mls/hr Documented By: HENRIQUE Co-signed By: GTH Titration: 07/02/25 21:00 Dose: 0 units/hr, 0 mls/hr Documented By: HENRIQUE Co-signed By: DISHA Admin: 07/02/25 20:25 Dose: 10 units/hr, 10 mls/hr Documented By: HENRIQUE Co-signed By: YAZ Dextrose/Sodium Chloride (D5w And 1/2nss) 1,000 mls @ 100 mls/hr IV .Q10H DEREK Stop: 07/05/25 19:14 Last Infusion: 07/03/25 10:18 Dose: Infused Documented By: Admin: 07/03/25 09:08 Dose: 100 mls/hr Documented By: Infusion: 07/03/25 06:22 Dose: Infused Documented By: Admin: 07/02/25 20:22 Dose: 100 mls/hr Documented By: HENRIQUE Magnesium Sulfate/Dextrose (Magnesium Sulfate / D5w) 1 gm in 100 mls @ 50 mls/hr IV ONE ONE Stop: 07/03/25 02:25 Last Infusion: 07/03/25 04:27 Dose: Infused Documented By: Admin: 07/03/25 01:14 Dose: 50 mls/hr Documented By: HENRIQUE Potassium Phosphate 24 mmol/ (Sodium Chloride) 508 mls @ 125 mls/hr IV ONE ONE Stop: 07/03/25 05:03 Last Infusion: 07/03/25 06:05 Dose: Infused Documented By: Admin: 07/03/25 01:14 Dose: 125 mls/hr Documented By: HENRIQUE Potassium Phosphate 21 mmol/ (Sodium Chloride) 507 mls @ 88 mls/hr IV ONE ONE Stop: 07/03/25 17:45 Last Infusion: 07/03/25 18:25 Dose: Infused Documented By: Admin: 07/03/25 12:28 Dose: 88 mls/hr Documented By: MARIANNE Sodium Phosphate 24 mmol/ (Sodium Chloride) 508 mls @ 88 mls/hr IV ONE ONE Stop: 07/04/25 16:46 Last Infusion: 07/04/25 17:44 Dose: Infused Documented By: Admin: 07/04/25 11:41 Dose: 88 mls/hr Documented By: MARIANNE Magnesium Sulfate/Dextrose (Magnesium Sulfate / D5w) 1 gm in 100 mls @ 50 mls/hr IV ONE ONE Stop: 07/05/25 09:23 Last Infusion: 07/05/25 10:36 Dose: Infused Documented By: Admin: 07/05/25 08:29 Dose: 50 mls/hr Documented By: OO Sodium Phosphate 21 mmol/ (Sodium Chloride) 507 mls @ 88 mls/hr IV ONE ONE Stop: 07/05/25 13:30 Last Infusion: 07/05/25 14:51 Dose: Infused Documented By: Admin: 07/05/25 08:30 Dose: 88 mls/hr Documented By: OO Influenza Virus Vacc Triv Types A&B (Influenza Vacc [id number](6m+)/Pf (Iiv3) 0.5ml Syr) 0.5 ml IM .ONCE ONE Stop: 07/02/25 20:51 Last Admin: 07/05/25 08:38 Dose: Not Given Documented By: MICHAEL Insulin Aspart (Insulin Aspart Per Unit Charge) 0 units SC ACHS DEREK Stop: 08/01/25 20:59 Last Admin: 07/03/25 07:53 Dose: Not Given Documented By: Admin: 07/02/25 21:11 Dose: Not Given Documented By: HENRIQUE Insulin Aspart (Insulin Aspart Per Unit Charge) 0 units SC ACHS [facility] Stop: 08/02/25 11:29 Last Admin: 07/14/25 13:12 Dose: Not Given Documented By: leidy Admin: 07/14/25 08:29 Dose: Not Given Documented By: leidy Admin: 07/14/25 00:42 Dose: Not Given Documented By: Admin: 07/13/25 16:12 Dose: Not Given Documented By: leidy Admin: 07/13/25 11:53 Dose: Not Given Documented By: leidy Admin: 07/13/25 09:24 Dose: 15 units Documented By: leidy Co-signed By: EP Admin: 07/12/25 21:23 Dose: 1 units Documented By: HOLLY Co-signed By: LEXY Admin: 07/12/25 16:34 Dose: 16 units Documented By: ERIC Co-signed By: OS Admin: 07/12/25 11:48 Dose: 6 units Documented By: ERIC Co-signed By: dst Admin: 07/12/25 09:48 Dose: 2 units Documented By: ERIC Co-signed By: dst Admin: 07/11/25 21:22 Dose: 1 units Documented By: HOLLY Co-signed By: RASHEEDA Admin: 07/11/25 16:22 Dose: 10 units Documented By: ANDREW Co-signed By: RITO Admin: 07/11/25 11:52 Dose: 16 units Documented By: ANDREW Co-signed By: RITO Admin: 07/11/25 08:05 Dose: 19 units Documented By: ANDREW Co-signed By: TRAE Admin: 07/10/25 20:34 Dose: 8 units Documented By: KAMERON Co-signed By: REGAN Admin: 07/10/25 17:40 Dose: 14 units Documented By: RITO Co-signed By: ANDREW Admin: 07/10/25 11:48 Dose: 13 units Documented By: ANDREW Co-signed By: TRAE Admin: 07/10/25 08:55 Dose: 16 units Documented By: ANDREW Co-signed By: LIZETH Admin: 07/09/25 21:02 Dose: 10 units Documented By: KAMERON Co-signed By: RUSLAN Admin: 07/09/25 17:09 Dose: 12 units Documented By: ANDREW Co-signed By: tab Admin: 07/09/25 12:25 Dose: 14 units Documented By: ANDREW Co-signed By: CALLY Admin: 07/09/25 10:22 Dose: 5 units Documented By: ANDREW Co-signed By: tab Admin: 07/08/25 20:53 Dose: 5 units Documented By: KAMERON Co-signed By: rmsharad Admin: 07/08/25 16:43 Dose: 12 units Documented By: ANDREW Co-signed By: NMK Admin: 07/08/25 12:03 Dose: 12 units Documented By: ANDREW Co-signed By: NMK Admin: 07/08/25 08:46 Dose: 9 units Documented By: ANDREW Co-signed By: LAF Admin: 07/07/25 21:38 Dose: 9 units Documented By: HENRIQUE Co-signed By: CHILANGO Admin: 07/07/25 18:12 Dose: 9 units Documented By: TB Co-signed By: ARISTEO Admin: 07/07/25 13:10 Dose: 15 units Documented By: TB Co-signed By: ARISTEO Admin: 07/07/25 09:01 Dose: 4 units Documented By: TB Co-signed By: tab Admin: 07/06/25 20:53 Dose: 8 units Documented By: HENRIQUE Co-signed By: BECKY Admin: 07/06/25 16:37 Dose: 7 units Documented By: ONadiya Co-signed By: ARISTEO Admin: 07/06/25 12:10 Dose: 7 units Documented By: OO Co-signed By: ANNIE Admin: 07/06/25 08:24 Dose: 13 units Documented By: MICHAEL Co-signed By: ARISTEO Admin: 07/05/25 22:10 Dose: Not Given Documented By: Admin: 07/05/25 16:53 Dose: 10 units Documented By: ONadiya Co-signed By: REGAN Admin: 07/05/25 12:37 Dose: 5 units Documented By: ONadiya Co-signed By: ANNIE Admin: 07/05/25 08:26 Dose: 9 units Documented By: OO Co-signed By: RAPHAELS Admin: 07/04/25 20:52 Dose: 2 units Documented By: TP Co-signed By: KARENA Admin: 07/04/25 16:50 Dose: 13 units Documented By: MARIANNE Co-signed By: CLARISSA Admin: 07/04/25 11:41 Dose: 12 units Documented By: MARIANNE Co-signed By: Admin: 07/04/25 08:28 Dose: 12 units Documented By: MARIANNE Co-signed By: CLARISSA Admin: 07/03/25 20:07 Dose: 1 units Documented By: HENRIQUE Co-signed By: SUZETTE Admin: 07/03/25 16:47 Dose: 9 units Documented By: MARIANNE Co-signed By: Admin: 07/03/25 12:04 Dose: 4 units Documented By: MARIANNE Co-signed By: Insulin Aspart (Insulin Aspart Per Unit Charge) 0 units SC 0000 DEREK Stop: 07/04/25 00:01 Last Admin: 07/04/25 01:24 Dose: 5 units Documented By: HENRIQUE Co-signed By: SUZETTE Insulin Glargine (Lantus Per Unit Charge) 35 units SC ONE ONE Stop: 07/03/25 10:31 Last Admin: 07/03/25 10:08 Dose: 35 units Documented By: MARIANNE Co-signed By: CLARISSA Insulin Glargine (Lantus Per Unit Charge) 45 units SC 0900 ONE Stop: 07/04/25 09:01 Last Admin: 07/04/25 08:29 Dose: 45 units Documented By: MARIANNE Co-signed By: CLARISSA Insulin Glargine (Lantus Per Unit Charge) 0 units SC DAILY DEREK; Protocol Stop: 08/04/25 08:59 Last Admin: 07/05/25 08:26 Dose: 50 units Documented By: MICHAEL Co-signed By: ANNIE Insulin Glargine (Lantus Per Unit Charge) 50 units SC DAILY DEREK Stop: 08/04/25 08:59 Last Admin: 07/06/25 08:24 Dose: 50 units Documented By: MICHAEL Co-signed By: ARISTEO Insulin Glargine (Lantus Per Unit Charge) 45 units SC DAILY DEREK Stop: 08/04/25 08:59 Last Admin: 07/09/25 10:22 Dose: 45 units Documented By: ANDREW Co-signed By: tab Admin: 07/08/25 08:47 Dose: 45 units Documented By: ANDREW Co-signed By: CLARISSA Admin: 07/07/25 09:02 Dose: 45 units Documented By: VILMA Co-signed By: tab Insulin Glargine (Lantus Per Unit Charge) 52 units SC DAILY DEREK Stop: 08/04/25 08:59 Last Admin: 07/13/25 09:24 Dose: 52 units Documented By: leidy Co-signed By: MERRY Admin: 07/12/25 08:18 Dose: 52 units Documented By: ERIC Co-signed By: HAYDEE Admin: 07/11/25 08:05 Dose: 52 units Documented By: ANDREW Co-signed By: TRAE Admin: 07/10/25 08:55 Dose: 52 units Documented By: ANDREW Co-signed By: LIZETH Insulin Glargine (Lantus Per Unit Charge) 35 units SC TODAY@0900 ONE Stop: 07/14/25 09:01 Last Admin: 07/14/25 09:00 Dose: 35 units Documented By: leidy Co-signed By: MERRY Insulin Human Regular (Novolin-R Bolus From Bag) 10 units IV ONE ONE Stop: 07/02/25 19:31 Last Admin: 07/02/25 20:26 Dose: 10 units Documented By: HENRIQUE Co-signed By: YAZ Ioversol (Optiray 320 100ml) 119 ml IV ONCE ONE Stop: 07/02/25 17:35 Last Admin: 07/02/25 17:35 Dose: 119 ml Documented By: JOHN Lisinopril (Lisinopril 20 Mg Tab) 20 mg PO QAM [facility] Stop: 08/02/25 08:59 Last Admin: 07/14/25 09:00 Dose: 20 mg Documented By: dll Admin: 07/13/25 09:10 Dose: 20 mg Documented By: dll Admin: 07/12/25 08:18 Dose: 20 mg Documented By: Admin: 07/11/25 08:03 Dose: 20 mg Documented By: Admin: 07/10/25 08:56 Dose: 20 mg Documented By: Admin: 07/09/25 10:20 Dose: 20 mg Documented By: Admin: 07/08/25 08:49 Dose: 20 mg Documented By: Admin: 07/07/25 09:02 Dose: 20 mg Documented By: Admin: 07/06/25 08:19 Dose: 20 mg Documented By: Admin: 07/05/25 08:27 Dose: 20 mg Documented By: Admin: 07/04/25 08:29 Dose: 20 mg Documented By: Admin: 07/03/25 10:04 Dose: 20 mg Documented By: JOHNSONK Magnesium Oxide (Magnesium Oxide 400 Mg Tab) 400 mg PO QAM [facility] Stop: 08/05/25 14:14 Last Admin: 07/07/25 09:20 Dose: 400 mg Documented By: Admin: 07/06/25 15:12 Dose: 400 mg Documented By: OO Magnesium Oxide (Magnesium Oxide 400 Mg Tab) 400 mg PO BID [facility] Stop: 08/06/25 20:59 Last Admin: 07/14/25 09:04 Dose: 400 mg Documented By: dlguerda Admin: 07/13/25 22:19 Dose: 400 mg Documented By: Admin: 07/13/25 09:24 Dose: 400 mg Documented By: leidy Admin: 07/12/25 21:24 Dose: 400 mg Documented By: Admin: 07/12/25 08:19 Dose: 400 mg Documented By: TJGuerda Admin: 07/11/25 21:22 Dose: 400 mg Documented By: Admin: 07/11/25 08:03 Dose: 400 mg Documented By: Admin: 07/10/25 20:34 Dose: 400 mg Documented By: Admin: 07/10/25 09:01 Dose: 400 mg Documented By: Admin: 07/09/25 21:02 Dose: 400 mg Documented By: Admin: 07/09/25 10:20 Dose: 400 mg Documented By: Admin: 07/08/25 20:54 Dose: 400 mg Documented By: Admin: 07/08/25 08:49 Dose: 400 mg Documented By: Admin: 07/07/25 21:38 Dose: 400 mg Documented By: HENRIQUE Melatonin (Melatonin 3 Mg Tab) 3 mg PO HS PRN PRN Reason: Sleep Stop: 08/01/25 19:38 Last Admin: 07/04/25 20:52 Dose: 3 mg Documented By: MCKAY Metformin HCl (Metformin Hcl 500 Mg Tab) 500 mg PO BIDM [facility] Stop: 08/12/25 09:39 Last Admin: 07/14/25 09:00 Dose: 500 mg Documented By: leidy Admin: 07/13/25 17:12 Dose: 500 mg Documented By: leidy Admin: 07/13/25 11:49 Dose: 500 mg Documented By: leidy Metoprolol Succinate (Metoprolol Succ 25mg Ext Rel Tab) 25 mg PO QAM [facility] Stop: 08/01/25 18:14 Last Admin: 07/14/25 09:00 Dose: 25 mg Documented By: leidy Admin: 07/13/25 09:10 Dose: 25 mg Documented By: leidy Admin: 07/12/25 08:18 Dose: 25 mg Documented By: Admin: 07/11/25 08:03 Dose: 25 mg Documented By: Admin: 07/10/25 08:56 Dose: 25 mg Documented By: Admin: 07/09/25 10:20 Dose: 25 mg Documented By: Admin: 07/08/25 08:49 Dose: 25 mg Documented By: Admin: 07/07/25 09:02 Dose: 25 mg Documented By: Admin: 07/06/25 08:19 Dose: 25 mg Documented By: Admin: 07/05/25 08:27 Dose: 25 mg Documented By: Admin: 07/04/25 08:29 Dose: 25 mg Documented By: Admin: 07/03/25 10:04 Dose: 25 mg Documented By: Admin: 07/02/25 20:34 Dose: 25 mg Documented By: HENRQIUE Ondansetron HCl (Ondansetron Inj 2 Mg/Ml 2 Ml Vial) 4 mg IV Q6H PRN PRN Reason: Nausea Stop: 08/01/25 19:38 Last Admin: 07/05/25 12:44 Dose: 4 mg Documented By: MICHAEL Pneumococcal 20-Valent Conj Vacc (Pneumococcal Vaccine (Pcv20) 20-Eloise Conj-Dip Crm/Pf 0.5 Ml Syr) 0.5 ml IM .ONCE ONE Stop: 07/02/25 20:51 Last Admin: 07/05/25 08:38 Dose: Not Given Documented By: MICHAEL Potassium Chloride (Potassium Chloride Crtab 20 Meq Tabcr) 20 meq PO NOW STA Stop: 07/03/25 02:27 Last Admin: 07/03/25 04:11 Dose: 20 meq Documented By: HENRIQUE Potassium Phosphate (Potassium Phos 3 Mmol/1 Ml Infusion) 21 mmol IV NOW STA Stop: 07/03/25 11:19 Last Admin: 07/03/25 12:37 Dose: Not Given Documented By: MARIANNE Potassium Phosphate (Pot Phosphate Monobasic W/ Sod Tab) 1 tab PO QID [facility]K Stop: 07/07/25 16:59 Last Admin: 07/07/25 13:11 Dose: 1 tab Documented By: Admin: 07/07/25 09:19 Dose: 1 tab Documented By: Admin: 07/06/25 20:52 Dose: 1 tab Documented By: Admin: 07/06/25 16:37 Dose: 1 tab Documented By: MICHAEL Warfarin Sodium (Warfarin Sod 10 Mg Tab) 10 mg PO DAILY@1600 [facility] Stop: 07/04/25 16:01 Last Admin: 07/04/25 16:51 Dose: 10 mg Documented By: MARIANNE Warfarin Sodium (Warfarin Sod 10 Mg Tab) 10 mg PO DAILY@1600 [facility] Stop: 08/04/25 15:59 Last Admin: 07/07/25 18:13 Dose: 10 mg Documented By: Admin: 07/06/25 15:12 Dose: 10 mg Documented By: Admin: 07/05/25 16:11 Dose: 10 mg Documented By: MICHAEL Warfarin Sodium (Warfarin Sod 2.5 Mg Tab) 12.5 mg PO DAILY@1600 [facility] Stop: 08/07/25 15:59 Last Admin: 07/10/25 17:34 Dose: 12.5 mg Documented By: Admin: 07/09/25 17:08 Dose: 12.5 mg Documented By: Admin: 07/08/25 16:43 Dose: 12.5 mg Documented By: ANDREW Warfarin Sodium (Warfarin Sod 7.5 Mg Tab) 15 mg PO DAILY@1600 [facility] Stop: 08/10/25 15:59 Last Admin: 07/13/25 17:12 Dose: 15 mg Documented By: dll Admin: 07/12/25 15:24 Dose: 15 mg Documented By: Admin: 07/11/25 15:27 Dose: 15 mg Documented By: ANDREW Imaging Data Attestation: I personally reviewed and interpreted this imaging study as follows: Radiologist's Impression: Chest X-Ray 07/02/25 14:46 Clinical History: Sepsis Technique: A frontal view of the chest was obtained Findings: There are no confluent pulmonary infiltrates. The heart size is within normal limits. No pleural effusion or pneumothorax is seen. There is no definite pulmonary nodule. No fracture is noted. Postsurgical changes are seen of coronary artery bypass grafting surgery Impression: No active disease Electronically signed by Mark Mckinney 07-02-2025 4:48 PM Chest CTA 07/02/25 17:04 Clinical history: Rule out pulmonary embolism Technique: Axial computed tomography images were obtained of the chest after the administration of intravenous contrast according to the CT angiogram protocol Findings: There is no definite sign of pulmonary embolism. There is a 4 mm left upper lobe nodule. There is no sign of pneumonia. There is no pleural effusion or pneumothorax. There is no sign of pulmonary fibrosis or other diffuse interstitial process. No endobronchial lesion is seen There is no mediastinal, hilar, or axillary adenopathy. The thoracic aorta appears unremarkable with no sign of aneurysm or dissection. There is no pericardial effusion. Postsurgical changes are seen of coronary artery bypass grafting surgery No fracture is seen. No focal osseous lesion is evident Impression: 1. No definite sign of pulmonary embolism 2. Small left upper lobe nodule, likely benign. A follow-up chest CT could be obtained in 6 months ACT 112: Positive. There are findings on this exam that require communication between the performing entity and the patient following Patient Test Result Information Act ([place] ACT 112) guidelines. Electronically signed by Mark Mckinney 07-02-2025 5:51 PM Abdomen/Pelvis CT 07/02/25 17:08 Clinical History: Nausea and vomiting Technique: Axial computed tomography images were obtained of the abdomen and pelvis after the administration of intravenous contrast. No prior CT is available for comparison. Findings: The liver is overall of normal size, attenuation, and contour with no sign of cirrhosis or significant fatty infiltration. No liver mass lesion is seen. The portal vein is patent. The gallbladder appears unremarkable. No bile duct dilatation is noted. The spleen is of normal size. No focal splenic lesion is evident. The pancreas appears normal with no sign of acute or chronic pancreatitis and no mass lesion noted. The pancreatic duct is of normal caliber. There is a 3.4 cm left adrenal nodule. The right adrenal gland appears normal No definite renal or proximal ureteral calculi are seen on this contrast-enhanced study. There is no hydronephrosis or perinephric stranding. No renal mass lesion is identified. There are multiple bilateral renal cysts, measuring up to 2.3 cm The aorta is of normal caliber. No abdominal adenopathy is seen. The stomach appears normal. There is no sign of small bowel obstruction. The colon appears unremarkable. The appendix appears normal also. No free intraperitoneal fluid or air is identified. No distal ureteral or bladder calculi are seen. No bladder mass lesion is evident. The iliac arteries are of normal caliber. No pelvic adenopathy is noted. The lungs bases appear clear. Lumbar scoliosis and degenerative disc disease is seen. No fracture is identified. No focal osseous lesion is seen Impression: 1. 3.4 cm left adrenal nodule. This may represent a benign adenoma but is indeterminate in nature. A follow-up dedicated adrenal protocol CT or MRI could be obtained 2. Bilateral renal cysts Electronically signed by Mark Mckinney 07-02-2025 7:06 PM Foot X-Ray 07/02/25 17:09 2 views left foot No comparison Impression No acute osseous pathology. Electronically signed by King Olvera 07-02-2025 7:48 PM Discharge Plan Visit Data Chief Complaint: Chest Pain Stated Complaint: CHEST PAIN ED Provider: Aram Mora ED Midlevel Provider: Luisa Venegas Discharge Problem: Chest pain, Frostbite Patient Disposition: Admitted As Inpatient Condition: Fair Discharge Instructions Interventions: ED Discharge Assessment Last Done: 07/02/25 18:42
[2025-07-02 15:24] LABS: Hematocrit (blood only) 47.6 % (42.0-52.0); Hemoglobin 16.6 g/dL (14.0-18.0); Immature Granulocytes # (auto) 0.07 K/uL (0.01-0.20); Immature Granulocytes % (auto) 0.5 %; Mean Corpuscular Hemoglobin 29.6 pg (25.0-34.0); Mean Corpuscular Volume 84.8 fL (80.0-100.0); Platelet Count 193 K/uL (130-400); RDW Standard Deviation 43.7 fL (36.4-46.3); Red Blood Count 5.61 M/uL (4.70-6.10); White Blood Count 14.59 K/ul (4.8-10.8)
[2025-07-02] MEDS: SODIUM CHLORIDE 0.9% 1,000 ML IV SCH (15:25)
[2025-07-02 15:51] LABS: Alanine Aminotransferase 7.0 U/L (7-52); Albumin Level 4.0 gm/dl (3.4-5.0); Alkaline Phosphatase 129.0 U/L (34-104); Anion Gap 15.0 (3-11); Bilirubin,Total 0.4 mg/dl (0.2-1.0); Blood Urea Nitrogen 39.0 mg/dl (6-23); Calcium 10.8 mg/dl (8.6-10.3); Carbon Dioxide 15.0 mmol/L (21-32); Chloride 104.0 mmol/L (98-107); Creatinine Clr Calc Pharmacy 119.4 ml/min; Glucose 328.0 mg/dl (70-99(Fasting)); Magnesium 2.0 mg/dl (1.7-2.4); Potassium 5.0 mmol/L (3.5-5.1); Sodium 134.0 mmol/L (136-145); Total Protein 7.3 gm/dl (6.0-8.3)
--- NOTE | 2025-07-02 16:48 | History & Physical Report ---
Date of Service July 02, 2025 Assessment & Plan (1) Chest pain: (2) CAD (coronary artery disease): (3) Hx of CABG: (4) Heart failure with reduced ejection fraction: (5) Hyperlipidemia: (6) Hypertension: (7) Diabetes mellitus: (8) Major depressive disorder: (9) Frostbite: Plan Patient is a 55 year old M with a past medical history of CAD s/p CABG Apr 2024, Diabetes Mellitus Type II, HTN, Hyperlipidemia, HFrEF presenting with central crushing chest pain with radiation to the right arm and back pain that started around 1:30pm today. Aspirin given via EMS. Reportedly had epistaxis 1 week ago, nonproductive cough, URI, shortness of breath, then developed vomiting yesterday. History of CABG in [place] in April 2024 and has not taken any medications x 3 months. Also with numbness to toes and found to have stallings bite. #Chest pain #CAB s/p CABG x 16 Apr 2024 * Admit to PCU for additional management and Cardiology workup * Chest w/ radiation, elev trop, tachycardia-> EKG showing sinus tach with ST elevation to inferior lead, QTc 435 * Not currently on anticoagulation, was on warfarin in past for LV thrombus-> CT angio chest showing no definite sign of pulmonary embolism ; Heparin gtts started * Will obtain Echo * ASA load given en route to ED-> Continue aspirin 81 daily * Cardiology consult placed for additional recommendations * Heart healthy diet, NPO at OR #Vomiting * reported vomiting yesterday with no abdominal pain, nausea, diarrhea symptoms, last food intake 1 week ago; no vomiting here * CT abd pelvis pending #HFrEF * will start metoprolol succ 25 mg daily- first dose today * Previously on lasix, EKG showing inferior wall ischemia, euvolemic on exam with coars lungs following fluid resus- holding lasix #Hypertension * initially hypotensive in ED, given 2L NSS, BP now 140/75 * lisinopril 20 mg to start tomorrow #Hyperlipidemia * Lipids pending * will start atorvastatin 80mg today at previous dose #Diabetes Mellitus Type II * Serum glucose 328, gap 15-> r/o DKA * Random cortisol 16.81; VBG pH 7.36, CO2 27, pO2 67, HCO3 15, Base -8.6 * Urine + prot, gluc, ketones, casts * A1C 12.7% today * SSI with goal BSG 110-140 * Has been on metformin and glipizide in the past #Hypothermia #Stallings bite * Ortho consult ordered for poss amputation left 1st digit * Bear hugger for hypothermic precautions, temp * Xray foot pending DVT Ppx: Heparin gtts Code status: Full PCP: NO PCP Dispo: Admit; patient is homeless and currently living in his car, will need extensive case management including financial assistance for medications. will also need imaging follow up at discharge for CT chest angio showing Small left upper lobe nodule, likely benign. A follow-up chest CT could be obtained in 6 months. Patient seen in collaboration with Dr. Enriquez. Please see addendum.I spent a total of 65 minutes coordinating, documenting and providing care for this patient excluding time spent in the performance of separately billed services or time spent by another provider/QHP. History of Present Illness Primary Care Provider: NO PCP Patient is a 55 year old M with a past medical history of CAD s/p CABG Apr 2024, Diabetes Mellitus Type II, HTN, Hyperlipidemia, HFrEF presenting with central crushing chest pain with radiation to the right arm and back pain that started around 1:30pm today. Aspirin given via EMS. Reportedly had epistaxis 1 week ago, nonproductive cough, URI, shortness of breath, then developed vomiting yesterday. History of CABG in [place] in April 2024 and has not taken any medications x 3 months. Also with numbness to toes and found to have stallings bite. As per ED provider, patient was hemodynamically stable with temp 36. Hypothermic management started with Bear hugger, IV fluid resuscitation. Blood pressure initially low to 98/77. Plan to admit Upon further review, labs showing leukocytosis with WBC 14, normal lactate and procal. Blood cultures pending. Trop 22 with report of chest pain. Initial EKG showing sinus tach, ST elevation to lead III, rate 102 bpm, QTc 435. Reporting 2/10 crushing chest pain with radiation to right arm. Tachycardic to 102, increased to 117 with position changes. Also with lightheadedness with position change only. Chest Xray read showing no active disease, possible pulmonary vascular congestion on my read. Denies fever, chills, weight loss, weakness, headache, cognitive changes, vision/hearing changes, swelling, urinary concerns, N/D, joint swelling/pain, ambulation difficulty, skin rashes, lesions, bruising. As per external chart review, patient presented to [facility] with chest pain in March 2024 and found to have heart failure, newly diagnosed ischemic cardiomyopathy, uncontrolled diabetes A1c 10.4. Multivessel disease found via cardiac cath here and transferred to [facility] on 04/04/24 for CABG. Echo workup at the time showed newly reduced EF of 30% w/ global hypokinesis, and a small apical thrombus. Status post CABG x3. Discharged to home and did initially have follow-up with PCP. Was on Warfarin for LV mural thrombus. Multiple no show appointments in outside record. Currently homeless, was evicted from homeless nursing home in [place] 1 month ago and has been living in his car x 1 month. Reports food insecurity with last meal a week ago. Has been off meds for at least 3 months and unable to afford the medications. Former smoker for 35 years, 1-2 PPD history. Previous alcohol use 6 packs/year. Per outside EMR, patient was managed on metoprolol 25 mg, lisinopril 20 mg for hypertension. He was on Lasix, but took only on weekends due to its diuretic effect impacting his work. For diabetes management, previously on Jardiance 20 mg and metformin. History obtained primarily from the patient and via hospitalization record. External chart review obtained from [facility]. Allergies Allergy/AdvReac Type Severity Reaction Status Date / Time No Known Allergies Allergy Unverified 07/02/25 17:56 Home Medications Medication Instructions Recorded Confirmed Type aspirin 81 mg chewable tablet 81 mg PO DAILY 07/02/25 07/02/25 History atorvastatin 80 mg tablet 80 mg PO DAILY 07/02/25 07/02/25 History diclofenac sodium 1 % topical gel 1 ea topical UD PRN pain 07/02/25 07/02/25 History empagliflozin 25 mg tablet 25 mg PO DAILY 07/02/25 07/02/25 History (Jardiance) famotidine 20 mg tablet 20 mg PO BID 07/02/25 07/02/25 History glipizide 10 mg tablet, extended 10 mg PO DAILY 07/02/25 07/02/25 History release 24 hr lisinopril 20 mg tablet 20 mg PO DAILY 07/02/25 07/02/25 History metformin 500 mg tablet,extended 500 mg PO BID 07/02/25 07/02/25 History release 24 hr metoprolol succinate 25 mg 25 mg PO DAILY 07/02/25 07/02/25 History tablet,extended release 24 hr potassium chloride 10 mEq 10 meq PO DAILY 07/02/25 07/02/25 History tablet,extended release warfarin 5 mg tablet 5 mg PO DAILY 07/02/25 07/02/25 History Past Med/Surg History Problem List (Updated 07/02/25 @ 18:04 by SADAF Vance) Frostbite CAD (coronary artery disease) Hyperlipidemia Heart failure with reduced ejection fraction Hypertension Diabetes mellitus Chest pain Medical History (Updated 07/02/25 @ 18:04 by SADAF Vance) Major depressive disorder LV dysfunction NSTEMI (non-ST elevated myocardial infarction) Surgical History (Updated 07/02/25 @ 17:40 by SADAF Vance) Hx of CABG Social History Smoking Status: Current every day smoker Tobacco Type: Cigarettes Preferred Language: Upper Sorbian Feels Safe at Home: Yes Review of Systems Review of Systems: All systems reviewed & are unremarkable except as noted in HPI & below Physical Exam Physical Exam: VITALS: Reviewed. WEIGHT/BMI reviewed. GEN: Ill-appearing, well-developed PSYCH: Good Judgment. AOx3. Normal memory, mood, and affect. HEENT -Head: NC/AT; -Eyes: PERRL, EOMI. No discharge or redn ess; -Ears: External ears are normal. -Nose: Normal nares. -Mouth and throat: MMM. Normal gums, muc lashonda, palate,. Good dentition. NECK: Supple, with no masses. CV: S1, S2, no murmur, pedal edema, no JVD LUNGS: Crackles to right side, no cough, sats 98% on room air ABD: Soft, NT/ND, NBS, no masses or organomegaly. : N/A SKIN: left 1st digit hyperpigmented,bluish coloring, warm with Bear hugger tx, otherwise no rashes or lesions MSK: RICHARDSON freely, strength 3/5 LLE, normal x 3 EXT: No clubbing, cyanosis, or edema. NEURO: CN II-XII grossly intact. Speech clear. No focal deficits. Results & Data Results & Data Vital Signs (Past 12 Hours) Vital Signs Temp Pulse Pulse Resp BP BP Pulse Ox 07/02/25 16:07 90 07/02/25 16:00 91 H 19 144/82 H 98 07/02/25 15:45 90 19 98/77 L 98 07/02/25 15:38 35.7 C L 07/02/25 15:35 35.7 C L 07/02/25 15:30 92 H 20 129/80 97 07/02/25 15:15 93 H 23 123/76 98 07/02/25 15:01 99 H 16 119/75 98 07/02/25 14:46 97 H 17 98 07/02/25 14:34 36.4 C L 97 H 21 119/75 97 O2 Del Method 07/02/25 16:07 07/02/25 16:00 Room Air 07/02/25 15:45 Room Air 07/02/25 15:38 07/02/25 15:35 07/02/25 15:30 Room Air 07/02/25 15:15 Room Air 07/02/25 15:01 Room Air 07/02/25 14:46 Room Air 07/02/25 14:34 Room Air Laboratory Results Short CBC 07/02/25 Range/Units 14:58 WBC 14.59 H (4.8-10.8) K/ul Hgb 16.6 (14.0-18.0) g/dL Hct 47.6 (42.0-52.0) % Plt Count 193 (130-400) K/uL BMP 07/02/25 14:58 Sodium 134 L Potassium 5.0 Chloride 104 Carbon Dioxide 15 L BUN 39 H Creatinine 0.84 Glucose 328 H* Calcium 10.8 H Liver Function 07/02/25 Range/Units 14:58 Total Bilirubin 0.4 (0.2-1.0) mg/dl Direct Bilirubin 0.1 (0-0.2) mg/dl AST 14 (13-39) U/L ALT 7 (7-52) U/L Alkaline Phosphatase 129 H (34-104) U/L Albumin 4.0 (3.4-5.0) gm/dl Diagnostic Findings Chest X-Ray 07/02/25 14:46 Clinical History: Sepsis Technique: A frontal view of the chest was obtained Findings: There are no confluent pulmonary infiltrates. The heart size is within normal limits. No pleural effusion or pneumothorax is seen. There is no definite pulmonary nodule. No fracture is noted. Postsurgical changes are seen of coronary artery bypass grafting surgery Impression: No active disease Electronically signed by Mark Mckinney 07-02-2025 4:48 PM Supervising Physician Co-Signing Physician Notes Patient seen and examined at bedside. Patient homeless, lives in car. Had crushing chest pain this morning, none prior. Stopped taking all meds s/p CABG due to financial difficulties. On exam, frostbit 1st digit of left foot, tachycardic regular rhythm, nausea and vomiting for past few days. Leukocytosis of 15 of unknown etiology, VBG without acidosis despite AGMA, lactic acid WNL, UA with 4+ ketones suggestive of starvation ketoacidosis, HS troponin mildly elevated. EKG revealing mild ST elevation in inferior leads relatively similar to prior (looked at ECG on [facility] records). Complex case. Patient presenting with unstable angina in setting of prior CABG and not able to take medications due to financial constraints. Start heparin, trend troponins, check BNP, check echo, check A1c/lipids for metabolic workup. Cardiology consult, appreciate recs, NPO after midnight in case of intervention. Check CTA PE given tachycardia and SOB. For leukocytosis check UA, biofire, CT abdomen/pelvis (given nausea and vomiting). Restart aspirin and statin. -after CTA PE came back negative, restarted metoprolol succinate, reintroduce GDMT daily. -ortho consult and xr of left foot for frostbite -PT/OT ordered -will need case management assistance with medications and resources provided for housing if avaliable -starvation ketoacidosis with elevated glucose---->will treat as DKA, start with [id number] immediately and titrate to effect -pH is being compensated for on VBG with respiratory alkalosis I have seen and discussed the case with the collaborating advanced practitioner. I agree with the above H&P. I have reviewed and confirmed the patients medical history, the findings on physical examination, and the patients diagnosis and treatment plan with Mercedez TALAVERA and agree with the information documented. I spent a total of 50 minutes coordinating, documenting, and providing care for this patient excluding time spent in the performance of separately billed services. All of the aforementioned completed outside of collaborating with the assigned advanced practitioner for a full treatment plan. I have reviewed the advanced practitioner's documentation, and I agree with, and take responsibility for the plan of care
[2025-07-02] MEDS ORDERED: Heparin IV Adult Wt-Based Low-Dose *NO* INITIAL Bolus Protocol IV STA (17:10)
[2025-07-02] MEDS ORDERED: HEPARIN 25000 UNIT/500 ML D5W 25,000 UNITS/500 ML BAG IV SCH (17:30)
[2025-07-02] MEDS: OPTIRAY 320 100ml IV ONE (17:35)
--- NOTE | 2025-07-02 17:52 | CT Scan Report ---
Clinical history: Rule out pulmonary embolism Technique: Axial computed tomography images were obtained of the chest after the administration of intravenous contrast according to the CT angiogram protocol Findings: There is no definite sign of pulmonary embolism. There is a 4 mm left upper lobe nodule. There is no sign of pneumonia. There is no pleural effusion or pneumothorax. There is no sign of pulmonary fibrosis or other diffuse interstitial process. No endobronchial lesion is seen There is no mediastinal, hilar, or axillary adenopathy. The thoracic aorta appears unremarkable with no sign of aneurysm or dissection. There is no pericardial effusion. Postsurgical changes are seen of coronary artery bypass grafting surgery No fracture is seen. No focal osseous lesion is evident Impression: 1. No definite sign of pulmonary embolism 2. Small left upper lobe nodule, likely benign. A follow-up chest CT could be obtained in 6 months ACT 112: Positive. There are findings on this exam that require communication between the performing entity and the patient following Patient Test Result Information Act ([place] ACT 112) guidelines. Electronically signed by Mark Mckinney 07-02-2025 5:51 PM
[2025-07-02] MEDS: SODIUM CHLORIDE 0.9% 1,000 ML IV ONE (18:00)
--- NOTE | 2025-07-02 18:27 | Electrocardiogram Report ---
Test Reason : Blood Pressure : */* mmHG Vent. Rate : 102 BPM Atrial Rate : 102 BPM P-R Int : 172 ms QRS Dur : 72 ms QT Int : 334 ms P-R-T Axes : 48 60 85 degrees QTcB Int : [address] elevation, consider early repolarization, pericarditis, or injury Nonspecific ST and T wave abnormality Abnormal ECG No previous ECGs available Confirmed by Ruben Still ([id number]) on 07/02/2025 6:27:24 PM Referred By: Confirmed By: Ruben Stlil
[2025-07-02 18:29] LABS: Hemoglobin A1C 12.7 % (4.5-5.6)
[2025-07-02 18:34] LABS: Base Excess VBG -8.6 mEq/L; HCO3 VBG 15 mmol/L; Oxygen Saturation VBG 97.2 %; PCO2 VBG 27 mmHg (38-50); PO2 VBG 67 mmHg; pH VBG 7.36 (7.36-7.41)
[2025-07-02] MEDS ORDERED: DEXTROSE 50% 50 ML SYRINGE IV PRN (18:40)
[2025-07-02] MEDS ORDERED: GLUCAGON FOR INJ 1 MG VIAL SQ PRN (18:40)
[2025-07-02] MEDS ORDERED: GLUCOSE 10 TAB/TUBE PO PRN (18:40)
[2025-07-02] MEDS ORDERED: GLUCOSE 40% GEL 15 GM TUBE PO PRN (18:40)
[2025-07-02] MEDS ORDERED: CARBOHYDRATES FOR HYPOGLYCEMIA PO PRN (18:40)
[2025-07-02 18:41] LABS: Appearance Urine Clear (Clear); Bacteria Urine Automated None Seen (None Seen); Epithelial Cell Urine Auto 0-2 /hpf (0-2); Glucose Urine UA 3+ (Negative); RBC Urine Automated 0-2 /hpf (0-2)
[2025-07-02 19:02] LABS: Cholesterol 215.0 mg/dl (0-200); HDL Cholesterol 29.0 mg/dl; Triglycerides 101.0 mg/dl (0-150)
--- NOTE | 2025-07-02 19:07 | CT Scan Report ---
Clinical History: Nausea and vomiting Technique: Axial computed tomography images were obtained of the abdomen and pelvis after the administration of intravenous contrast. No prior CT is available for comparison. Findings: The liver is overall of normal size, attenuation, and contour with no sign of cirrhosis or significant fatty infiltration. No liver mass lesion is seen. The portal vein is patent. The gallbladder appears unremarkable. No bile duct dilatation is noted. The spleen is of normal size. No focal splenic lesion is evident. The pancreas appears normal with no sign of acute or chronic pancreatitis and no mass lesion noted. The pancreatic duct is of normal caliber. There is a 3.4 cm left adrenal nodule. The right adrenal gland appears normal No definite renal or proximal ureteral calculi are seen on this contrast-enhanced study. There is no hydronephrosis or perinephric stranding. No renal mass lesion is identified. There are multiple bilateral renal cysts, measuring up to 2.3 cm The aorta is of normal caliber. No abdominal adenopathy is seen. The stomach appears normal. There is no sign of small bowel obstruction. The colon appears unremarkable. The appendix appears normal also. No free intraperitoneal fluid or air is identified. No distal ureteral or bladder calculi are seen. No bladder mass lesion is evident. The iliac arteries are of normal caliber. No pelvic adenopathy is noted. The lungs bases appear clear. Lumbar scoliosis and degenerative disc disease is seen. No fracture is identified. No focal osseous lesion is seen Impression: 1. 3.4 cm left adrenal nodule. This may represent a benign adenoma but is indeterminate in nature. A follow-up dedicated adrenal protocol CT or MRI could be obtained 2. Bilateral renal cysts Electronically signed by Mark Mckinney 07-02-2025 7:06 PM
[2025-07-02 19:10] LABS: Chlamydia pneumoniae PCR Not Detected (NotDetected); Coronavirus 229E PCR Not Detected (NotDetected); Coronavirus CoV-2 (COVID19)PCR Not Detected (NotDetected); Coronavirus HKU1 PCR Not Detected (NotDetected); Coronavirus NL63 PCR Not Detected (NotDetected); Coronavirus OC43PCR Not Detected (NotDetected); Human Metapneumovirus PCR Not Detected (NotDetected); Parainfluenza Virus 1 PCR Not Detected (NotDetected); Parainfluenza Virus 2 PCR Not Detected (NotDetected); Parainfluenza Virus 3 PCR Not Detected (NotDetected); Parainfluenza Virus 4 PCR Not Detected (NotDetected); Respiratory Syncytial VirusPCR Not Detected (NotDetected); Rhinovirus/Enterovirus PCR Not Detected (NotDetected)
[2025-07-02] MEDS ORDERED: DKA GOAL RANGE 150-250 mg/dl ONE (19:14)
[2025-07-02] MEDS ORDERED: PHARMACY GLYCEMIC MGMT CONSULT PRN (19:14)
[2025-07-02] MEDS ORDERED: STAT IV Infusion **Titration per Protocol STA (19:14)
[2025-07-02 19:16] LABS: Thyroid Stimulating Hormone 1.618 uIu/ml (0.300-4.500)
[2025-07-02] MEDS ORDERED: MAGNESIUM HYDROXIDE SUSP 30 ML UDC PO PRN (19:39)
[2025-07-02] MEDS ORDERED: POLYETHYLENE (MIRALAX) 17 GM PACK PO PRN (19:39)
[2025-07-02] MEDS ORDERED: ALUMINUM/MAGNESIUM SUSP 30 ML UDC PO PRN (19:39)
--- NOTE | 2025-07-02 19:49 | XRay Report ---
2 views left foot No comparison Impression No acute osseous pathology. Electronically signed by King Olvera 07-02-2025 7:48 PM
[2025-07-02] MEDS: D5W AND 1/2NSS 1,000 ML IV SCH (20:22)
[2025-07-02] MEDS: INSULIN REGULAR 250 UNITS in SODIUM CHLORIDE 0.9% 247.5 ML IV SCH (20:25)
[2025-07-02] MEDS: NovoLIN-R BOLUS FROM BAG IV ONE (20:26)
[2025-07-02] MEDS: HEPARIN 25000 UNIT/500 ML D5W 25,000 UNITS/500 ML BAG IV SCH (20:28)
[2025-07-02] MEDS: Heparin IV Adult Wt-Based Low-Dose w/ INITIAL Bolus Protocol IV STA (20:33)
[2025-07-02] MEDS: METOPROLOL SUCC 25MG EXT REL TAB PO SCH (20:34)
[2025-07-02] MEDS: ATORVASTATIN 40 MG TAB PO SCH (20:34)
[2025-07-02] MEDS: HEPARIN 25000 UNIT/500 ML D5W IV ONE (20:41)
[2025-07-02] MEDS ORDERED: INSULIN ASPART PER UNIT CHARGE SC SCH (21:00)
[2025-07-02] MEDS: HEPARIN SOD (PORCINE) 1000 UNIT/ML IV ONE (21:07)
[2025-07-02] MEDS: ACETAMINOPHEN 325 MG TAB PO PRN (21:08)
[2025-07-02] MEDS: INSULIN ASPART PER UNIT CHARGE SC SCH (21:11)
[2025-07-02 21:48] LABS: Anion Gap 11.0 (3-11); Blood Urea Nitrogen 34.0 mg/dl (6-23); Calcium 10.4 mg/dl (8.6-10.3); Carbon Dioxide 18.0 mmol/L (21-32); Chloride 107.0 mmol/L (98-107); Creatinine Clr Calc Pharmacy 132.5 ml/min; Glucose 215.0 mg/dl (70-99(Fasting)); Magnesium 1.7 mg/dl (1.7-2.4); Potassium 3.9 mmol/L (3.5-5.1); Sodium 136.0 mmol/L (136-145)
[2025-07-03 00:22] LABS: Anion Gap 6.0 (3-11); Blood Urea Nitrogen 32.0 mg/dl (6-23); Calcium 10.0 mg/dl (8.6-10.3); Carbon Dioxide 22.0 mmol/L (21-32); Chloride 107.0 mmol/L (98-107); Creatinine Clr Calc Pharmacy 144.0 ml/min; Glucose 167.0 mg/dl (70-99(Fasting)); Magnesium 1.7 mg/dl (1.7-2.4); Potassium 3.7 mmol/L (3.5-5.1); Sodium 135.0 mmol/L (136-145)
[2025-07-03] MEDS ORDERED: POTASSIUM PHOS 3 MMOL/1 ML INFUSION IV STA (00:26)
[2025-07-03] MEDS: MAGNESIUM SULFATE / D5W 1 GM/100 ML BAG IV ONE (01:14)
[2025-07-03] MEDS: POTASSIUM PHOSPHATE 24 MMOL in SODIUM CHLORIDE 0.9% 500 ML IV ONE (01:14)
[2025-07-03 03:22] LABS: ANTI-Xa, UFH(UnfractionatedHep 0.11 IU/ml (0.3-0.7)
[2025-07-03] MEDS: HEPARIN SOD (PORCINE) 1000 UNIT/ML IV ONE ×3 (04:11→19:51)
[2025-07-03] MEDS: POTASSIUM CHLORIDE CRTAB 20 MEQ TABCR PO STA (04:11)
[2025-07-03 08:00] LABS: Hematocrit (blood only) 40.9 % (42.0-52.0); Hemoglobin 14.1 g/dL (14.0-18.0); Mean Corpuscular Hemoglobin 28.9 pg (25.0-34.0); Mean Corpuscular Volume 83.8 fL (80.0-100.0); Platelet Count 157 K/uL (130-400); RDW Standard Deviation 42.9 fL (36.4-46.3); Red Blood Count 4.88 M/uL (4.70-6.10); White Blood Count 10.98 K/ul (4.8-10.8)
--- NOTE | 2025-07-03 08:06 | Cardiology Consultation ---
Date of Consultation July 03, 2025 Assessment & Plan (1) Chest pain: (2) CAD (coronary artery disease): (3) Heart failure with reduced ejection fraction: (4) Hypertension: (5) Hyperlipidemia: (6) Diabetes mellitus: (7) Frostbite: Plan Assessment: 55 year old male admitted for chest pain and stallings bite. EKG with no acute ischemic changes and troponin within range. Patient has been off of his medications x3 months due to financial issues and homelessness. Plan: 1. Chest pain 2. CAD 3. HFrEF 4. HTN 5. HLD -patient with known complex CAD s/p CABG 3 vessel Apr 2024. He has been off of his medications for at least 3 months due to inability to afford his medications and homelessness. -EKG with no acute ischemic changes. No troponin elevation. No acute events on telemetry -Obtain echocardiogram -BP stable. -Continue toprol xl, atorvastatin and lisinopril, restart ASA 81mg -May continue Heparin gtt for now s/t hx of LV thrombus (previously on warfarin). Will discuss case with Dr Read to determine if warfarin is still indicated for this patient 7. DM - As per management of primary team 8. Stallings bite: -Assessed by ortho with no plans for surgical intervention at this time. continued management per primary team Case has been discussed with Dr. Read. Further recommendations regarding plan of care as per her assessment. I spent a total of 50 minutes on the date of service in preparation, delivery, documentation of the care provided to the patient excluding any time spent in the performance of separately billed services. SADAF [facility] Supervising Physician Co-Signing Physician Notes I have reviewed the advanced practitioner's documentation on the date of service referenced in note, and I agree with, and take responsibility for the plan of care. I spent a total of [30] minutes coordinating, documenting, and providing care for this patient excluding time spent in the performance of separately billed services or time spent by another provider. 55-year-old male with known history of coronary artery disease presents to coronary artery bypass and March 2024 at that time echo showed small apical thrombus has been on Coumadin did not follow-up with outpatient cardiology. Unable to afford med medication Chest pain no evidence of acute coronary Restarted on medication Currently on heparin Echocardiogram showed mildly reduced ejection fraction with apical akinesis and possible layered thrombus or trabeculation History of Present Illness Reason for Consultation: "crushing chest pain" Requesting Physician: Viola hospitalist Attending Physician: Nuria Dowd MD History of Present Illness HPI: Patient is a medically complex 55 year old male that is without residence, currently living out of his car that presented to the ER via EMS with complaints of chest pain described as mid-sternal and "crushing" with radiation to the arm and back that started day of admission. He also endorses URI symptoms, cough and vomiting. He also endorses numbness to his toes and has stallings bite. patient reports that he was living at a local homeless half[place]way in [place], but that they kicked him out because he had been there too long. He reports that he's been living in his care and his last meal was one week ago. Upon examination of patient this morning, he is resting comfortably reclined in bed. Reports complete resolution of chest pain, denies any shortness of breath, PND. pre-syncope, syncope or edema. Review of telemetry shows SR rates 80-90's. No acute events overnight. Cardiac Problem list: 1. CAD s/p CABG 3 vessel. Apr 2024 [facility] [place] ([facility], Ao-obtuse marginal, Ao-PDA using reversed saphenous vein)Dr. Blancas 2. HTN 3. HLD 4. Ischemic cardiomyopathy/HFrEF 5. DM type II 6. Previous ETOH abuse 7. Tobacco abuse 8. small apical thrombus--was on warfarin 9. Medication non-compliance for at least 3 months (in part due to financial issues/homelessness) Patient has not followed up outpatient for any of his cardiology care, multiple no-shows due to his current living situation EKG on admission ST rate 102bpm. non-specific ST-T wave abnormality. Repeat EKG this morning SR with PAC QTC 537 Chest xray negative CTA chest: Impression: 1. No definite sign of pulmonary embolism 2. Small left upper lobe nodule, likely benign. A follow-up chest CT could be obtained in 6 months Urine culture and Blood cultures pending Allergies Allergy/AdvReac Type Severity Reaction Status Date / Time No Known Allergies Allergy Unverified 07/02/25 17:56 Home Medications Medication Instructions Recorded Confirmed Type aspirin 81 mg chewable tablet 81 mg PO DAILY 07/02/25 07/02/25 History atorvastatin 80 mg tablet 80 mg PO DAILY 07/02/25 07/02/25 History diclofenac sodium 1 % topical gel 1 ea topical UD PRN pain 07/02/25 07/02/25 History empagliflozin 25 mg tablet 25 mg PO DAILY 07/02/25 07/02/25 History (Jardiance) famotidine 20 mg tablet 20 mg PO BID 07/02/25 07/02/25 History glipizide 10 mg tablet, extended 10 mg PO DAILY 07/02/25 07/02/25 History release 24 hr lisinopril 20 mg tablet 20 mg PO DAILY 07/02/25 07/02/25 History metformin 500 mg tablet,extended 500 mg PO BID 07/02/25 07/02/25 History release 24 hr metoprolol succinate 25 mg 25 mg PO DAILY 07/02/25 07/02/25 History tablet,extended release 24 hr potassium chloride 10 mEq 10 meq PO DAILY 07/02/25 07/02/25 History tablet,extended release warfarin 5 mg tablet 5 mg PO DAILY 07/02/25 07/02/25 History Patient History Medical History (Updated 07/03/25 @ 10:40 by Niall Coleman PA-C) Major depressive disorder LV dysfunction NSTEMI (non-ST elevated myocardial infarction) Surgical History (Updated 07/02/25 @ 17:40 by SADAF Vance) Hx of CABG Social History Smoking Status: Current every day smoker Tobacco Type: Cigarettes Cigarettes Per Day: 20; Second Hand Exposure: No; Do You Dip or Chew Tobacco: No; Hx Alcohol Use: No Hx Substance Use: No Preferred Language: Yakut Communication Ability: Effective Note Keeper Required: No Beliefs That Will Affect Care: None Current Living Situation: Alone Current Living Situation Comment: lives in his car Other Information That Helps Us Care for You: Yes (homeless) Feels Safe at Home: Hesitant to Answer Safety Concerns: Feels Safe At This Time Assistive Devices: None Review of Systems Review of Systems: All systems reviewed & are unremarkable except as noted in HPI & below Physical Exam Constitutional: well developed, well nourished and + disheveled; no acute distress and not ill appearing Neck: normal visual inspection and trachea midline Respiratory: normal respiratory effort, lungs clear to auscultation Auscultation: no crackles, no rales, no rhonchi and no wheezes Cardiovascular: Rate/Rhythm: regular rate and regular rhythm Heart Sounds: normal S1 and normal S2 Vessels: dorsalis pedis pulses present; no JVD Skin: no rashes, warm and dry stallings bite of the left great toe Psychiatric: A+Ox3, euthymic affect Results & Data Vital Signs (Past 12 Hours) Vital Signs Temp Pulse Pulse Resp BP BP Pulse Ox 07/03/25 07:34 36.9 C 82 18 117/62 96 07/03/25 03:21 36.4 C L 83 18 106/69 94 07/02/25 23:12 37.9 C H 106 H 20 144/69 H 95 07/02/25 20:33 36.3 C L 110 H 18 154/89 H 98 07/02/25 20:04 113 H O2 Del Method 07/03/25 07:34 Room Air 07/03/25 03:21 Room Air 07/02/25 23:12 Room Air 07/02/25 20:33 Room Air 07/02/25 20:04 Laboratory Results Cardiac Enzymes 07/02/25 07/02/25 Range/Units 14:58 18:23 AST 14 (13-39) U/L Troponin I High Sens 22.6 H 21.0 H (0-20) pg/ml B-Natriuretic Peptide 67 (0-100) pg/ml Coagulation 07/02/25 Range/Units 18:23 B-Natriuretic Peptide 67 (0-100) pg/ml Lipids 07/02/25 Range/Units 18:23 Triglycerides 101 (0-150) mg/dl Cholesterol 215 H (0-200) mg/dl HDL Cholesterol 29 mg/dl Cholesterol/HDL Ratio 7.4 H (0-5) CBC 07/02/25 07/03/25 Range/Units 14:58 07:29 WBC 14.59 H 10.98 H (4.8-10.8) K/ul RBC 5.61 4.88 (4.70-6.10) M/uL Hgb 16.6 14.1 (14.0-18.0) g/dL Hct 47.6 40.9 L (42.0-52.0) % Plt Count 193 157 (130-400) K/uL Neut # (Auto) 10.99 H (1.40-6.50) K/uL Lymph # (Auto) 2.40 (1.20-3.40) K/uL Walsh # (Auto) 0.98 H (0.11-0.59) K/uL Eos # (Auto) 0.09 (0.00-0.50) K/uL Baso # (Auto) 0.06 (0.00-0.20) K/uL Comprehensive Metabolic Panel 07/02/25 07/02/25 07/02/25 Range/Units 14:58 21:00 23:43 Sodium 134 L 136 135 L (136-145) mmol/L Potassium 5.0 3.9 D 3.7 (3.5-5.1) mmol/L Chloride 104 107 107 (98-107) mmol/L Carbon Dioxide 15 L 18 L 22 (21-32) mmol/L BUN 39 H 34 H 32 H (6-23) mg/dl Creatinine 0.84 0.75 0.69 (0.6-1.4) mg/dl Glucose 328 H* 215 H 167 H (70-99(Fasting)) mg/dl Calcium 10.8 H 10.4 H 10.0 (8.6-10.3) mg/dl Direct Bilirubin 0.1 (0-0.2) mg/dl AST 14 (13-39) U/L ALT 7 (7-52) U/L Alkaline Phosphatase 129 H (34-104) U/L Total Protein 7.3 (6.0-8.3) gm/dl Albumin 4.0 (3.4-5.0) gm/dl 07/03/25 07/03/25 Range/Units 07:22 10:09 Sodium 135 L 135 L (136-145) mmol/L Potassium 3.9 3.8 (3.5-5.1) mmol/L Chloride 108 H 108 H (98-107) mmol/L Carbon Dioxide 21 22 (21-32) mmol/L BUN 25 H 24 H (6-23) mg/dl Creatinine 0.56 L 0.58 L (0.6-1.4) mg/dl Glucose 195 H 116 H (70-99(Fasting)) mg/dl Calcium 9.4 9.4 (8.6-10.3) mg/dl Direct Bilirubin (0-0.2) mg/dl AST (13-39) U/L ALT (7-52) U/L Alkaline Phosphatase (34-104) U/L Total Protein (6.0-8.3) gm/dl Albumin (3.4-5.0) gm/dl Intake and Output 07/02/25 07/03/25 07/03/25 22:59 06:59 14:59 Intake Total 2945.833 / 4872.180 1926.347 / 4872.180 461.947 / 461.947 Output Total 200 / 200 Balance 2945.833 / 4672.180 1726.347 / 4672.180 461.947 / 461.947 Intake: IV 2005.833 / 3812.180 1806.347 / 3812.180 311.947 / 311.947 D5w and 1/2Nss 1,000 ml @ 100 1000 / 1000 116.667 / 116.667 mls/hr IV .Q10H [facility] Rx#: [id number] Heparin 13991 Unit/500 ml D5w 154.667 / 154.667 180.933 / 180.933 25,000 units In 500 ml @ 1,300 UNITS/HR 26 mls/hr IV .[id number] [facility] Rx#:[id number] Insulin Regular 250 units In 5.833 / 49.513 43.68 / 49.513 14.347 / 14.347 Sodium Chloride 0.9% 247.5 ml @ 0 UNITS/HR IV .Q0M [facility] Rx#: [id number] Magnesium Sulfate / D5w 1 gm In 100 / 100 100 ml @ 50 mls/hr IV ONE ONE Rx#:[id number] Potassium Phosphate 24 mmol In 508 / 508 Sodium Chloride 0.9% 500 ml @ 125 mls/hr IV ONE ONE Rx#: [id number] Sodium Chloride 0.9% 1,000 ml @ 2000 / 2000 999 mls/hr IV .Q1H1M ONE Rx#: [id number] Oral 940 / 1060 120 / 1060 150 / 150 Output: Urine 200 / 200 Other: # Unmeasured Voids 1 1 Weight 104.326 kg 106.5 kg Weight Measurement Method Built in [facility] Built in [facility] PG Care Time/CCT Total # of Minutes Spent Total Time Spent with Patient: Total time spent is greater than 50% in coordination of care (as documented) at patient's floor/unit and/or counseling patient: Coding Level of Care Code 79359 IN/OBS CONSULT LVL 5,80M Diagnoses Chest pain R07.9 CAD (coronary artery disease) I25.10 Heart failure with reduced ejection fraction I50.20 Hypertension I10 Hyperlipidemia E78.5 Diabetes mellitus E11.9 Frostbite, initial encounter T33.90XA Encounter type: initial encounter Time Spent (min) 50 (7) Frostbite Encounter type: initial encounter Qualified Code(s): T33.90XA - Superficial frostbite of unspecified sites, initial encounter
[2025-07-03 08:17] LABS: Anion Gap 6.0 (3-11); Blood Urea Nitrogen 25.0 mg/dl (6-23); Calcium 9.4 mg/dl (8.6-10.3); Carbon Dioxide 21.0 mmol/L (21-32); Chloride 108.0 mmol/L (98-107); Creatinine Clr Calc Pharmacy 179.2 ml/min; Glucose 195.0 mg/dl (70-99(Fasting)); Magnesium 1.8 mg/dl (1.7-2.4); Potassium 3.9 mmol/L (3.5-5.1); Sodium 135.0 mmol/L (136-145)
--- NOTE | 2025-07-03 09:45 | Electrocardiogram Report ---
Test Reason : Blood Pressure : */* mmHG Vent. Rate : 82 BPM Atrial Rate : 82 BPM P-R Int : 166 ms QRS Dur : 94 ms QT Int : 460 ms P-R-T Axes : 52 74 148 degrees QTcB Int : 537 ms Sinus rhythm with Premature atrial complexes Poor R-wave progression ; consider anterior infarct, lead placement, or normal variant Abnormal ECG When compared with ECG of 02-Jul-2025 14:46, Premature atrial complexes are now Present ST no longer elevated in Inferior leads QT has lengthened Confirmed by Jesus Villela ([id number]) on 07/03/2025 9:45:21 AM Referred By: REFERRED SELF Confirmed By: Jesus Villela
[2025-07-03] MEDS: LANTUS PER UNIT CHARGE SC ONE (10:08)
[2025-07-03 10:40] LABS: Anion Gap 5.0 (3-11); Blood Urea Nitrogen 24.0 mg/dl (6-23); Calcium 9.4 mg/dl (8.6-10.3); Carbon Dioxide 22.0 mmol/L (21-32); Chloride 108.0 mmol/L (98-107); Creatinine Clr Calc Pharmacy 173.1 ml/min; Glucose 116.0 mg/dl (70-99(Fasting)); Magnesium 1.8 mg/dl (1.7-2.4); Potassium 3.8 mmol/L (3.5-5.1); Sodium 135.0 mmol/L (136-145)
[2025-07-03 10:45] LABS: ANTI-Xa, UFH(UnfractionatedHep 0.16 IU/ml (0.3-0.7)
--- NOTE | 2025-07-03 10:48 | Orthopedic Consultation ---
Date of Service July 03, 2025 Assessment & Plan (1) Frostbite: Plan No surgical recommendation at this point. Recommend podiatry consult on Saturday. Continue current treatment Can return to full diet from orthopedic standpoint. Weight bearing status: As tolerated Pain control as needed Remainder care per primary team History of Present Illness Reason for Consultation: Frostbite of left great toe. Requesting Physician: . Attending Physician: Nuria Dowd MD 55-year-old male with history of coronary artery disease and CABG in April 2024 admitted for chest pain. Was also found that he had numbness in left great toe frostbite. Patient has been homeless for the past month and has been living in his car. Patient was sleeping in his car without heat. He is unsure of how long he has not had feeling in his great toe. He states he has deep pain in the toe. He is able to ambulate. Allergies Allergy/AdvReac Type Severity Reaction Status Date / Time No Known Allergies Allergy Unverified 07/02/25 17:56 Home Medications Medication Instructions Recorded Confirmed Type aspirin 81 mg chewable tablet 81 mg PO DAILY 07/02/25 07/02/25 History atorvastatin 80 mg tablet 80 mg PO DAILY 07/02/25 07/02/25 History diclofenac sodium 1 % topical gel 1 ea topical UD PRN pain 07/02/25 07/02/25 History empagliflozin 25 mg tablet 25 mg PO DAILY 07/02/25 07/02/25 History (Jardiance) famotidine 20 mg tablet 20 mg PO BID 07/02/25 07/02/25 History glipizide 10 mg tablet, extended 10 mg PO DAILY 07/02/25 07/02/25 History release 24 hr lisinopril 20 mg tablet 20 mg PO DAILY 07/02/25 07/02/25 History metformin 500 mg tablet,extended 500 mg PO BID 07/02/25 07/02/25 History release 24 hr metoprolol succinate 25 mg 25 mg PO DAILY 07/02/25 07/02/25 History tablet,extended release 24 hr potassium chloride 10 mEq 10 meq PO DAILY 07/02/25 07/02/25 History tablet,extended release warfarin 5 mg tablet 5 mg PO DAILY 07/02/25 07/02/25 History Past Med/Surg History Problem List (Updated 07/03/25 @ 10:40 by Niall Coleman PA-C) Frostbite CAD (coronary artery disease) Hyperlipidemia Heart failure with reduced ejection fraction Hypertension Diabetes mellitus Chest pain Medical History (Updated 07/03/25 @ 10:40 by Niall Coleman PA-C) Major depressive disorder LV dysfunction NSTEMI (non-ST elevated myocardial infarction) Surgical History (Updated 07/02/25 @ 17:40 by SADAF Vance) Hx of CABG Social History Smoking Status: Current every day smoker Tobacco Type: Cigarettes Cigarettes Per Day: 20; Second Hand Exposure: No; Do You Dip or Chew Tobacco: No; Hx Alcohol Use: No Hx Substance Use: No Preferred Language: Danish Communication Ability: Effective Ctc Operator Required: No Beliefs That Will Affect Care: None Current Living Situation: Alone Current Living Situation Comment: lives in his car Other Information That Helps Us Care for You: Yes (homeless) Feels Safe at Home: Hesitant to Answer Safety Concerns: Feels Safe At This Time Assistive Devices: None Review of Systems All systems reviewed & are unremarkable except as noted in HPI & below. Physical Exam Patient was seen at bedside this morning. Examination left great toe shows no obvious overlying skin changes. No ecchymosis, erythema, or signs of necrosis. Patient does not have feeling in the great toe. He also lacks feeling under the distal first metatarsal. Patient does not feel pain on passive range of motion. Flexion and extension at the MTP joint is preserved. he does lack flexion extension at the IP joint. Results & Data Results & Data Laboratory Results . Diagnostic Findings Chest X-Ray 07/02/25 14:46 Clinical History: Sepsis Technique: A frontal view of the chest was obtained Findings: There are no confluent pulmonary infiltrates. The heart size is within normal limits. No pleural effusion or pneumothorax is seen. There is no definite pulmonary nodule. No fracture is noted. Postsurgical changes are seen of coronary artery bypass grafting surgery Impression: No active disease Electronically signed by Mark Mckinney 07-02-2025 4:48 PM Chest CTA 07/02/25 17:04 Clinical history: Rule out pulmonary embolism Technique: Axial computed tomography images were obtained of the chest after the administration of intravenous contrast according to the CT angiogram protocol Findings: There is no definite sign of pulmonary embolism. There is a 4 mm left upper lobe nodule. There is no sign of pneumonia. There is no pleural effusion or pneumothorax. There is no sign of pulmonary fibrosis or other diffuse interstitial process. No endobronchial lesion is seen There is no mediastinal, hilar, or axillary adenopathy. The thoracic aorta appears unremarkable with no sign of aneurysm or dissection. There is no pericardial effusion. Postsurgical changes are seen of coronary artery bypass grafting surgery No fracture is seen. No focal osseous lesion is evident Impression: 1. No definite sign of pulmonary embolism 2. Small left upper lobe nodule, likely benign. A follow-up chest CT could be obtained in 6 months ACT 112: Positive. There are findings on this exam that require communication between the performing entity and the patient following Patient Test Result Information Act ([place] ACT 112) guidelines. Electronically signed by Mark Mckinney 07-02-2025 5:51 PM Abdomen/Pelvis CT 07/02/25 17:08 Clinical History: Nausea and vomiting Technique: Axial computed tomography images were obtained of the abdomen and pelvis after the administration of intravenous contrast. No prior CT is available for comparison. Findings: The liver is overall of normal size, attenuation, and contour with no sign of cirrhosis or significant fatty infiltration. No liver mass lesion is seen. The portal vein is patent. The gallbladder appears unremarkable. No bile duct dilatation is noted. The spleen is of normal size. No focal splenic lesion is evident. The pancreas appears normal with no sign of acute or chronic pancreatitis and no mass lesion noted. The pancreatic duct is of normal caliber. There is a 3.4 cm left adrenal nodule. The right adrenal gland appears normal No definite renal or proximal ureteral calculi are seen on this contrast-enhanced study. There is no hydronephrosis or perinephric stranding. No renal mass lesion is identified. There are multiple bilateral renal cysts, measuring up to 2.3 cm The aorta is of normal caliber. No abdominal adenopathy is seen. The stomach appears normal. There is no sign of small bowel obstruction. The colon appears unremarkable. The appendix appears normal also. No free intraperitoneal fluid or air is identified. No distal ureteral or bladder calculi are seen. No bladder mass lesion is evident. The iliac arteries are of normal caliber. No pelvic adenopathy is noted. The lungs bases appear clear. Lumbar scoliosis and degenerative disc disease is seen. No fracture is identified. No focal osseous lesion is seen Impression: 1. 3.4 cm left adrenal nodule. This may represent a benign adenoma but is indeterminate in nature. A follow-up dedicated adrenal protocol CT or MRI could be obtained 2. Bilateral renal cysts Electronically signed by Mark Mckinney 07-02-2025 7:06 PM Foot X-Ray 07/02/25 17:09 2 views left foot No comparison Impression No acute osseous pathology. Electronically signed by King Olvera 07-02-2025 7:48 PM PG Care Time/CCT Total # of Minutes Spent Total Time Spent with Patient: Total time spent is greater than 50% in coordination of care (as documented) at patient's floor/unit and/or counseling patient: [place] [address] IN/OBS CONSULT LVL 4,60M Patient Type New History Problem Focused Medical Decision Making Straight Forward Diagnoses Frostbite, initial encounter T33.90XA Encounter type: initial encounter (1) Frostbite Encounter type: initial encounter Qualified Code(s): T33.90XA - Superficial frostbite of unspecified sites, initial encounter
[2025-07-03] MEDS: INSULIN ASPART PER UNIT CHARGE SC SCH (12:04)
[2025-07-03] MEDS: POTASSIUM PHOSPHATE 21 MMOL in SODIUM CHLORIDE 0.9% 500 ML IV ONE (12:28)
--- NOTE | 2025-07-03 12:35 | Hospitalist Progress Note ---
Date of Service July 03, 2025 Assessment & Plan (1) Chest pain: (2) CAD (coronary artery disease): (3) Hx of CABG: (4) Heart failure with reduced ejection fraction: (5) Hyperlipidemia: (6) Hypertension: (7) Diabetes mellitus: (8) Major depressive disorder: (9) Frostbite: Plan 55 year old Man with PMH of CAD s/p CABG Apr 2024, Diabetes Mellitus Type II, HTN, Hyperlipidemia, HFrEF presented with central crushing chest pain with radiation to the right arm and back pain that started around 1:30pm on day of presentation. Aspirin given via EMS. Has been off medications for 3 months due to MA issues #Chest pain #CAB s/p CABG x 16 Apr 2024 Chest w/ radiation, elev trops EKG similar to prior Was on warfarin in past for LV thrombus Continue heparin drip for now. Will start warfarin at some point once confirmed no planned procedure by Cardiology Will f/u TTE #HFrEF #Hypertension #Hyperlipidemia Continue metoprolol succ 25 mg daily, atorvastatin Continue lisinopril Monitor BP #Diabetes Mellitus Type II Labs on admission notable for AGMA with AGAP 15, bicarb of 15. pH of 7.3 6VBG, UA with 4+ketones HbA1C 12.7% today Possible early DKA or starvation ketosis Was on insulin drip on admission. Transitioned to sq this AM #Hypothermia #Wren bite XR foot was unremarkable Ortho recs noted CM notified about homeless situation and MA issues. CM to review and assist DVT Ppx: Heparin gtt Code status: Full PCP: NO PCP I spent a total of 55 minutes coordinating, documenting and providing care for this patient excluding time spent in performance of separately billed services Admission and Anticipated Discharge Date Admission Date: July 02, 2025 Subjective Patient seen and examined Reports he had chest pain on day of presentation. Described as pressure associated with SOB, nausea, vomiting. Was not exertional Chest pain has resolved Reports he developed numbness in his feet over the past few days Denied other complaints on ROS Patient has been living in car for the past month Reports he lost his MA and has been off meds for the past 3 months Physical Exam Constitutional: + well hydrated; no acute distress Eyes: PERRL, conjunctivae normal, anicteric sclerae ENMT: external ear and nose normal, oropharynx normal Respiratory: normal respiratory effort, lungs clear to auscultation Cardiovascular: Rate/Rhythm: regular rate and regular rhythm Gastrointestinal (Abdomen): normal bowel sounds, soft, nontender, no hepatosplenomegaly Musculoskeletal: No pedal edema No skin changes noted. Sensory deficits in left great toe Neurologic: PERRL, EOMI, accommodation nl, no face palsy, no dysarthria Psychiatric: A+Ox3, euthymic affect Results & Data Results & Data Vital Signs (Past 12 Hours) Vital Signs Temp Pulse Pulse Resp BP Pulse Ox O2 Del Method 07/03/25 10:55 36.8 C 75 18 117/68 97 Room Air 07/03/25 07:34 36.9 C 82 18 117/62 96 Room Air 07/03/25 07:00 81 07/03/25 03:21 36.4 C L 83 18 106/69 94 Room Air Laboratory Results Abnormal lab results 07/02/25 07/02/25 07/02/25 Range/Units 14:58 17:49 18:23 WBC 14.59 H (4.8-10.8) K/ul Hct (42.0-52.0) % Neut # (Auto) 10.99 H (1.40-6.50) K/uL [place] # (Auto) 0.98 H (0.11-0.59) K/uL Heparin Anti-Xa, Unfract (0.3-0.7) IU/ml VBG pH (7.36-7.41) VBG pCO2 27 L (38-50) mmHg Sodium 134 L (136-145) mmol/L Chloride (98-107) mmol/L Carbon Dioxide 15 L (21-32) mmol/L Anion Gap 15 H (3-11) BUN 39 H (6-23) mg/dl Creatinine (0.6-1.4) mg/dl BUN/Creatinine Ratio 46.4 H (10-20) Glucose 328 H* (70-99(Fasting)) mg/dl POC Glucose (70-99) mg/dl Hemoglobin A1c 12.7 H (4.5-5.6) % Calcium 10.8 H (8.6-10.3) mg/dl Phosphorus (2.5-4.9) mg/dl Alkaline Phosphatase 129 H (34-104) U/L Troponin I High Sens 22.6 H 21.0 H (0-20) pg/ml Cholesterol 215 H (0-200) mg/dl Cholesterol/HDL Ratio 7.4 H (0-5) Ur Specific [place] 1.041 H (1.000-1.030) Urine Protein 1+ H (Negative) Urine Glucose (UA) 3+ H (Negative) Urine Ketones 4+ H (Negative) Urine WBC (Auto) 11-20 H (0-5) /hpf U Hyaline Cast (Auto) 3-5 H (0-2) /lpf Hyaline Casts Present A (None Presnt) /lpf 07/02/25 07/02/25 07/02/25 Range/Units 20:09 21:00 21:02 WBC (4.8-10.8) K/ul Hct (42.0-52.0) % Neut # (Auto) (1.40-6.50) K/uL [place] # (Auto) (0.11-0.59) K/uL Heparin Anti-Xa, Unfract (0.3-0.7) IU/ml VBG pH 7.34 L (7.36-7.41) VBG pCO2 (38-50) mmHg Sodium (136-145) mmol/L Chloride (98-107) mmol/L Carbon Dioxide 18 L (21-32) mmol/L Anion Gap (3-11) BUN 34 H (6-23) mg/dl Creatinine (0.6-1.4) mg/dl BUN/Creatinine Ratio 45.3 H (10-20) Glucose 215 H (70-99(Fasting)) mg/dl POC Glucose 299 H 183 H (70-99) mg/dl Hemoglobin A1c (4.5-5.6) % Calcium 10.4 H (8.6-10.3) mg/dl Phosphorus 1.2 L* (2.5-4.9) mg/dl Alkaline Phosphatase (34-104) U/L Troponin I High Sens (0-20) pg/ml Cholesterol (0-200) mg/dl Cholesterol/HDL Ratio (0-5) Ur Specific [place] (1.000-1.030) Urine Protein (Negative) Urine Glucose (UA) (Negative) Urine Ketones (Negative) Urine WBC (Auto) (0-5) /hpf U Hyaline Cast (Auto) (0-2) /lpf Hyaline Casts (None Presnt) /lpf 07/02/25 07/02/25 07/02/25 Range/Units 22:17 23:14 23:33 WBC (4.8-10.8) K/ul Hct (42.0-52.0) % Neut # (Auto) (1.40-6.50) K/uL [place] # (Auto) (0.11-0.59) K/uL Heparin Anti-Xa, Unfract (0.3-0.7) IU/ml VBG pH (7.36-7.41) VBG pCO2 (38-50) mmHg Sodium (136-145) mmol/L Chloride (98-107) mmol/L Carbon Dioxide (21-32) mmol/L Anion Gap (3-11) BUN (6-23) mg/dl Creatinine (0.6-1.4) mg/dl BUN/Creatinine Ratio (10-20) Glucose (70-99(Fasting)) mg/dl POC Glucose 170 H 170 H 163 H (70-99) mg/dl Hemoglobin A1c (4.5-5.6) % Calcium (8.6-10.3) mg/dl Phosphorus (2.5-4.9) mg/dl Alkaline Phosphatase (34-104) U/L Troponin I High Sens (0-20) pg/ml Cholesterol (0-200) mg/dl Cholesterol/HDL Ratio (0-5) Ur Specific [place] (1.000-1.030) Urine Protein (Negative) Urine Glucose (UA) (Negative) Urine Ketones (Negative) Urine WBC (Auto) (0-5) /hpf U Hyaline Cast (Auto) (0-2) /lpf Hyaline Casts (None Presnt) /lpf 07/02/25 07/03/25 07/03/25 Range/Units 23:43 01:16 02:27 WBC (4.8-10.8) K/ul Hct (42.0-52.0) % Neut # (Auto) (1.40-6.50) K/uL [place] # (Auto) (0.11-0.59) K/uL Heparin Anti-Xa, Unfract 0.11 L (0.3-0.7) IU/ml VBG pH 7.44 H (7.36-7.41) VBG pCO2 (38-50) mmHg Sodium 135 L (136-145) mmol/L Chloride (98-107) mmol/L Carbon Dioxide (21-32) mmol/L Anion Gap (3-11) BUN 32 H (6-23) mg/dl Creatinine (0.6-1.4) mg/dl BUN/Creatinine Ratio 46.4 H (10-20) Glucose 167 H (70-99(Fasting)) mg/dl POC Glucose 104 H (70-99) mg/dl Hemoglobin A1c (4.5-5.6) % Calcium (8.6-10.3) mg/dl Phosphorus 1.1 L* (2.5-4.9) mg/dl Alkaline Phosphatase (34-104) U/L Troponin I High Sens (0-20) pg/ml Cholesterol (0-200) mg/dl Cholesterol/HDL Ratio (0-5) Ur Specific [place] (1.000-1.030) Urine Protein (Negative) Urine Glucose (UA) (Negative) Urine Ketones (Negative) Urine WBC (Auto) (0-5) /hpf U Hyaline Cast (Auto) (0-2) /lpf Hyaline Casts (None Presnt) /lpf 07/03/25 07/03/25 07/03/25 Range/Units 03:02 04:03 05:21 WBC (4.8-10.8) K/ul Hct (42.0-52.0) % Neut # (Auto) (1.40-6.50) K/uL [place] # (Auto) (0.11-0.59) K/uL Heparin Anti-Xa, Unfract (0.3-0.7) IU/ml VBG pH (7.36-7.41) VBG pCO2 (38-50) mmHg Sodium (136-145) mmol/L Chloride (98-107) mmol/L Carbon Dioxide (21-32) mmol/L Anion Gap (3-11) BUN (6-23) mg/dl Creatinine (0.6-1.4) mg/dl BUN/Creatinine Ratio (10-20) Glucose (70-99(Fasting)) mg/dl POC Glucose 134 H 159 H 169 H (70-99) mg/dl Hemoglobin A1c (4.5-5.6) % Calcium (8.6-10.3) mg/dl Phosphorus (2.5-4.9) mg/dl Alkaline Phosphatase (34-104) U/L Troponin I High Sens (0-20) pg/ml Cholesterol (0-200) mg/dl Cholesterol/HDL Ratio (0-5) Ur Specific [place] (1.000-1.030) Urine Protein (Negative) Urine Glucose (UA) (Negative) Urine Ketones (Negative) Urine WBC (Auto) (0-5) /hpf U Hyaline Cast (Auto) (0-2) /lpf Hyaline Casts (None Presnt) /lpf 07/03/25 07/03/25 07/03/25 Range/Units 06:13 07:22 07:23 WBC (4.8-10.8) K/ul Hct (42.0-52.0) % Neut # (Auto) (1.40-6.50) K/uL [place] # (Auto) (0.11-0.59) K/uL Heparin Anti-Xa, Unfract (0.3-0.7) IU/ml VBG pH (7.36-7.41) VBG pCO2 (38-50) mmHg Sodium 135 L (136-145) mmol/L Chloride 108 H (98-107) mmol/L Carbon Dioxide (21-32) mmol/L Anion Gap (3-11) BUN 25 H (6-23) mg/dl Creatinine 0.56 L (0.6-1.4) mg/dl BUN/Creatinine Ratio 44.6 H (10-20) Glucose 195 H (70-99(Fasting)) mg/dl POC Glucose 163 H 175 H (70-99) mg/dl Hemoglobin A1c (4.5-5.6) % Calcium (8.6-10.3) mg/dl Phosphorus 1.7 L (2.5-4.9) mg/dl Alkaline Phosphatase (34-104) U/L Troponin I High Sens (0-20) pg/ml Cholesterol (0-200) mg/dl Cholesterol/HDL Ratio (0-5) Ur Specific [place] (1.000-1.030) Urine Protein (Negative) Urine Glucose (UA) (Negative) Urine Ketones (Negative) Urine WBC (Auto) (0-5) /hpf U Hyaline Cast (Auto) (0-2) /lpf Hyaline Casts (None Presnt) /lpf 07/03/25 07/03/25 07/03/25 Range/Units 07:29 09:02 10:09 WBC 10.98 H (4.8-10.8) K/ul Hct 40.9 L (42.0-52.0) % Neut # (Auto) (1.40-6.50) K/uL [place] # (Auto) (0.11-0.59) K/uL Heparin Anti-Xa, Unfract 0.16 L (0.3-0.7) IU/ml VBG pH (7.36-7.41) VBG pCO2 (38-50) mmHg Sodium 135 L (136-145) mmol/L Chloride 108 H (98-107) mmol/L Carbon Dioxide (21-32) mmol/L Anion Gap (3-11) BUN 24 H (6-23) mg/dl Creatinine 0.58 L (0.6-1.4) mg/dl BUN/Creatinine Ratio 41.4 H (10-20) Glucose 116 H (70-99(Fasting)) mg/dl POC Glucose 145 H 104 H (70-99) mg/dl Hemoglobin A1c (4.5-5.6) % Calcium (8.6-10.3) mg/dl Phosphorus 1.7 L (2.5-4.9) mg/dl Alkaline Phosphatase (34-104) U/L Troponin I High Sens (0-20) pg/ml Cholesterol (0-200) mg/dl Cholesterol/HDL Ratio (0-5) Ur Specific [place] (1.000-1.030) Urine Protein (Negative) Urine Glucose (UA) (Negative) Urine Ketones (Negative) Urine WBC (Auto) (0-5) /hpf U Hyaline Cast (Auto) (0-2) /lpf Hyaline Casts (None Presnt) /lpf 07/03/25 Range/Units 10:55 WBC (4.8-10.8) K/ul Hct (42.0-52.0) % Neut # (Auto) (1.40-6.50) K/uL [place] # (Auto) (0.11-0.59) K/uL Heparin Anti-Xa, Unfract (0.3-0.7) IU/ml VBG pH (7.36-7.41) VBG pCO2 (38-50) mmHg Sodium (136-145) mmol/L Chloride (98-107) mmol/L Carbon Dioxide (21-32) mmol/L Anion Gap (3-11) BUN (6-23) mg/dl Creatinine (0.6-1.4) mg/dl BUN/Creatinine Ratio (10-20) Glucose (70-99(Fasting)) mg/dl POC Glucose 130 H (70-99) mg/dl Hemoglobin A1c (4.5-5.6) % Calcium (8.6-10.3) mg/dl Phosphorus (2.5-4.9) mg/dl Alkaline Phosphatase (34-104) U/L Troponin I High Sens (0-20) pg/ml Cholesterol (0-200) mg/dl Cholesterol/HDL Ratio (0-5) Ur Specific [place] (1.000-1.030) Urine Protein (Negative) Urine Glucose (UA) (Negative) Urine Ketones (Negative) Urine WBC (Auto) (0-5) /hpf U Hyaline Cast (Auto) (0-2) /lpf Hyaline Casts (None Presnt) /lpf (9) Frostbite Encounter type: initial encounter Qualified Code(s): T33.90XA - Superficial frostbite of unspecified sites, initial encounter
[2025-07-03] MEDS: POTASSIUM PHOS 3 MMOL/1 ML INFUSION IV STA (12:37)
--- NOTE | 2025-07-03 14:55 | Pharmacy Report ---
Pharmacy Glycemic Short Note 2 - Date of Service July 03, 2025 - Glycemic Short BSG Results (Last 24 hours): 07/02/25 07/02/25 07/02/25 14:58 20:09 21:00 Glucose 328 H* 215 H POC Glucose 299 H 07/02/25 07/02/25 07/02/25 21:02 22:17 23:14 Glucose POC Glucose 183 H 170 H 170 H 07/02/25 07/02/25 07/03/25 23:33 23:43 01:16 Glucose 167 H POC Glucose 163 H 104 H 07/03/25 07/03/25 07/03/25 03:02 04:03 05:21 Glucose POC Glucose 134 H 159 H 169 H 07/03/25 07/03/25 07/03/25 06:13 07:22 07:23 Glucose 195 H POC Glucose 163 H 175 H 07/03/25 07/03/25 07/03/25 09:02 10:09 10:55 Glucose 116 H POC Glucose 145 H 104 H 130 H OUTPATIENT ANTIDIABETIC REGIMEN: * n/a (off meds for three months) A1c = 12.7% ASSESSMENT: * 55 yo M with h/oT2DM who presented with central crushing chest pain with radiation to R arm and back pain. * BSG of 328 mg/dL on presentation. Of note, patient reports being off medications for three months. * IV insulin infusion initiated 12 PM. BSGs improved nicely overnight. Anion gap and bicarb wnl this am. Insulin infusion calculator instructed RN to hold infusion around 10 AM for BSG below goal. Prior to this, infusion had been running at 2.9-3.6 units/hr. Diet resumed. * Ordered a one time dose of Lantus to start transition to SQ insulin. Further Lantus dosing TBD based on BSG trend. * Will utilize weight/stress 2 for Novolog. PLAN FOR INPATIENT GLYCEMIC CONTROL: * Hold outpatient oral diabetes medications * Basal insulin * Lantus 35 units SQ x 1 * Further dosing TBD * Bolus insulin * NovoLog per scale ACHS or Q6hrs while NPO * Goal Range: Low 120 mg/dL - High 48340 mg/dL * Correction Factor: 20 mg/dL/unit * Nutritional / Prandial insulin per carb ratio of 1 unit per 8 grams CHO consumed
[2025-07-03 19:02] LABS: ANTI-Xa, UFH(UnfractionatedHep 0.17 IU/ml (0.3-0.7)
--- NOTE | 2025-07-03 19:34 | XCELERA ---
[id number]
[2025-07-04] MEDS: INSULIN ASPART PER UNIT CHARGE SC SCH (01:24)
[2025-07-04 03:39] LABS: ANTI-Xa, UFH(UnfractionatedHep 0.19 IU/ml (0.3-0.7)
[2025-07-04] MEDS: HEPARIN SOD (PORCINE) 1000 UNIT/ML IV ONE ×2 (05:35→19:56)
[2025-07-04 08:13] LABS: INR 1.1 (0.9-1.1); Prothrombin Time 11.9 Seconds (9.0-12.0)
[2025-07-04] MEDS: LANTUS PER UNIT CHARGE SC ONE (08:29)
--- NOTE | 2025-07-04 09:46 | Electrocardiogram Report ---
Test Reason : Blood Pressure : */* mmHG Vent. Rate : 71 BPM Atrial Rate : 71 BPM P-R Int : 168 ms QRS Dur : 98 ms QT Int : 430 ms P-R-T Axes : 65 70 80 degrees QTcB Int : 467 ms Normal sinus rhythm Normal ECG When compared with ECG of 03-Jul-2025 05:28, Premature atrial complexes are no longer Present QT has shortened Confirmed by Jesus Villela ([id number]) on 07/04/2025 9:46:21 AM Referred By: REFERRED SELF Confirmed By: Jseus Villela
--- NOTE | 2025-07-04 10:08 | Hospitalist Progress Note ---
Date of Service July 04, 2025 Assessment & Plan (1) Chest pain: (2) CAD (coronary artery disease): (3) Hx of CABG: (4) Heart failure with reduced ejection fraction: (5) Hyperlipidemia: (6) Hypertension: (7) Diabetes mellitus: (8) Major depressive disorder: (9) Frostbite: Plan 55 year old Man with PMH of CAD s/p CABG Apr 2024, Diabetes Mellitus Type II, HTN, Hyperlipidemia, HFrEF presented with central crushing chest pain with radiation to the right arm and back pain that started around 1:30pm on day of presentation. Aspirin given via EMS. Has been off medications for 3 months due to MA issues #Chest pain #CAB s/p CABG x 16 Apr 2024 Chest w/ radiation, elev trops EKG similar to prior Was on warfarin in past for LV thrombus Cards eval noted TTE noted EF 45-50%, apical kinesis. Cannot rule out associated thrombi, mild MR Currently on heparin drip. Start warfarin bridge as well. Monitor daily INR #HFrEF #Hypertension #Hyperlipidemia Continue metoprolol succ 25 mg daily, atorvastatin Continue lisinopril Monitor BP #Diabetes Mellitus Type II Labs on admission notable for AGMA with AGAP 15, bicarb of 15. pH of 7.3 6VBG, UA with 4+ketones HbA1C 12.7% Possible early DKA or starvation ketosis Was on insulin drip on admission. Transitioned to sq this AM #Hypophosphatemia Replete and monitor #Hypothermia #Wren bite XR foot was unremarkable Ortho recs noted CM reviewing homelessness/MA issues DVT Ppx: Heparin gtt + warfarin Code status: Full PCP: Will need set up with PCP appt I spent a total of 50 minutes coordinating, documenting and providing care for this patient excluding time spent in performance of separately billed services Admission and Anticipated Discharge Date Admission Date: July 02, 2025 Subjective Patient seen and examined Reports some hyperesthesia in left big toe and some numbness in the toes as well No other complaints Physical Exam Constitutional: + well hydrated; no acute distress Eyes: PERRL, conjunctivae normal, anicteric sclerae ENMT: external ear and nose normal, oropharynx normal Respiratory: normal respiratory effort, lungs clear to auscultation Cardiovascular: Rate/Rhythm: regular rate and regular rhythm Gastrointestinal (Abdomen): normal bowel sounds, soft, nontender, no hepatosplenomegaly Musculoskeletal: No pedal edema No skin changes noted. Sensory deficits in left great toe Neurologic: PERRL, EOMI, accommodation nl, no face palsy, no dysarthria Psychiatric: A+Ox3, euthymic affect Results & Data Results & Data Vital Signs (Past 12 Hours) Vital Signs Temp Pulse Pulse Resp BP Pulse Ox O2 Del Method 07/04/25 07:27 36.8 C 80 19 106/64 94 Room Air 07/04/25 07:00 73 07/04/25 02:57 36.7 C 80 18 100/61 95 Room Air 07/03/25 23:09 81 07/03/25 22:56 37.0 C 76 18 99/59 L 94 Room Air Laboratory Results Abnormal lab results 07/03/25 07/03/25 07/03/25 Range/Units 10:55 16:10 18:08 Heparin Anti-Xa, Unfract 0.17 L (0.3-0.7) IU/ml Chloride (98-107) mmol/L Carbon Dioxide (21-32) mmol/L Anion Gap (3-11) BUN (6-23) mg/dl BUN/Creatinine Ratio (10-20) Glucose (70-99(Fasting)) mg/dl POC Glucose 130 H 200 H (70-99) mg/dl Phosphorus (2.5-4.9) mg/dl 07/03/25 07/04/25 07/04/25 Range/Units 19:50 01:02 02:29 Heparin Anti-Xa, Unfract 0.19 L (0.3-0.7) IU/ml Chloride (98-107) mmol/L Carbon Dioxide (21-32) mmol/L Anion Gap (3-11) BUN (6-23) mg/dl BUN/Creatinine Ratio (10-20) Glucose (70-99(Fasting)) mg/dl POC Glucose 178 H 251 H (70-99) mg/dl Phosphorus (2.5-4.9) mg/dl 07/04/25 07/04/25 Range/Units 07:24 08:32 Heparin Anti-Xa, Unfract (0.3-0.7) IU/ml Chloride 109 H (98-107) mmol/L Carbon Dioxide 12 L (21-32) mmol/L Anion Gap 17 H (3-11) BUN 27 H (6-23) mg/dl BUN/Creatinine Ratio 44.3 H (10-20) Glucose 183 H (70-99(Fasting)) mg/dl POC Glucose 226 H (70-99) mg/dl Phosphorus 1.8 L (2.5-4.9) mg/dl (9) Frostbite Encounter type: initial encounter Qualified Code(s): T33.90XA - Superficial frostbite of unspecified sites, initial encounter
[2025-07-04 10:41] LABS: Anion Gap 17.0 (3-11); Blood Urea Nitrogen 27.0 mg/dl (6-23); Calcium 9.6 mg/dl (8.6-10.3); Carbon Dioxide 12.0 mmol/L (21-32); Chloride 109.0 mmol/L (98-107); Creatinine Clr Calc Pharmacy 167.5 ml/min; Glucose 183.0 mg/dl (70-99(Fasting)); Magnesium 1.9 mg/dl (1.7-2.4); Potassium 4.2 mmol/L (3.5-5.1); Sodium 138.0 mmol/L (136-145)
[2025-07-04] MEDS ORDERED: SODIUM PHOSPHATE 3 MMOL/1 ML INFUSION IV STA (10:50)
[2025-07-04 11:18] LABS: ANTI-Xa, UFH(UnfractionatedHep 0.27 IU/ml (0.3-0.7)
[2025-07-04] MEDS: SODIUM PHOSPHATE 24 MMOL in SODIUM CHLORIDE 0.9% 500 ML IV ONE (11:41)
--- NOTE | 2025-07-04 11:59 | Cardiology Progress Note ---
Date of Service July 04, 2025 Assessment & Plan (1) Chest pain: (2) CAD (coronary artery disease): (3) Heart failure with reduced ejection fraction: (4) Hypertension: (5) Hyperlipidemia: (6) Diabetes mellitus: (7) Frostbite: Plan Assessment: 55 year old male admitted for chest pain and wren bite. EKG with no acute ischemic changes and troponin within range. Patient has been off of his medications x3 months due to financial issues and homelessness. Plan 07/04/2025: 1. Chest pain 2. CAD 3. HFrEF 4. HTN 5. HLD -patient with known complex CAD s/p CABG 3 vessel Apr 2024. He has been off of his medications for at least 3 months due to inability to afford his medications and homelessness. -EKG with no acute ischemic changes. No troponin elevation. No acute events on telemetry -Echocardiogram completed 07/03/25 shows Mildly reduced EF 45-50%, left apical akinesis. Apical echoes with trabeculae are noted. Cannnot rule out associated thrombi (hx of LV thrombus at time of CABG in 2023), mild MR. -BP remains stable. -Continue Toprol xl, atorvastatin and lisinopril -May continue Heparin gtt for now s/t hx of LV thrombus (previously on warfarin). Given echocardiogram findings, patient will likely need transitioned back to Warfarin prior to discharge. -Primary team has case management on board. Ongoing concern for medication compliance given financial insecurities as well as housing insecurities. 7. DM - As per management of primary team 8. Wren bite: -Assessed by ortho with no plans for surgical intervention at this time. continued management per primary team Case has been discussed with Dr. Read. Further recommendations regarding plan of care as per her assessment. I spent a total of 30 minutes on the date of service in preparation, delivery, documentation of the care provided to the patient excluding any time spent in the performance of separately billed services. SADAF Cooper [facility] Cardiology [facility] Admission and Anticipated Discharge Date Admission Date: July 02, 2025 Supervising Physician Co-Signing Physician Notes I have reviewed the advanced practitioner's documentation on the date of service referenced in note, and I agree with, and take responsibility for the plan of care. I spent a total of [15 ] minutes coordinating, documenting, and providing care for this patient excluding time spent in the performance of separately billed services or time spent by another provider. 55-year-old male with known history of coronary artery disease presents to coronary artery bypass and March 2024 at that time echo showed small apical thrombus has been on Coumadin. Patient has been unable to afford medications and homeless Presented with chest pain no evidence of acute coronary syndrome Echocardiogram showed mildly reduced ejection fraction , different images no large LV apical thrombus significant apical trabeculae present cannot rule out small thrombi Consider cardiac MRI as an outpatient continue with heparin and bridging to Coumadin. Also needs aspirin 81 mg daily Follow-up as outpatient please call with questions Subjective 06/14/2025: Patient seen and examined in follow up today. Feeling well from a cardiac perspective. offers no acute concerns. He is resting comfortably sitting up on the side of his bed. No chest pain, pressure or palpitations. No shortness of breath, no PND, pres-syncope. Patient continues with some lower extremity edema, but states it is getting better. Labs, vitals, diagnostics, telemetry and documentation reviewed. Telemetry reviewed showing SR with occasional PAC and PVCs, Rates 70's. Review of Systems Review of Systems: All systems reviewed & are unremarkable except as noted in HPI & below Physical Exam Constitutional: well developed and well nourished; no acute distress and not ill appearing Neck: normal visual inspection and trachea midline Respiratory: normal respiratory effort, lungs clear to auscultation Auscultation: no crackles, no rales, no rhonchi and no wheezes Cardiovascular: Rate/Rhythm: regular rate and regular rhythm Heart Sounds: normal S1 and normal S2 Vessels: dorsalis pedis pulses present; no JVD Extremities: + edema (+1 BLE) Skin: no rashes, warm and dry Psychiatric: A+Ox3, euthymic affect Results & Data Vital Signs (Past 12 Hours) Vital Signs Temp Pulse Pulse Resp BP Pulse Ox O2 Del Method 07/04/25 11:04 36.7 C 71 20 98/60 L 96 Room Air 07/04/25 07:27 36.8 C 80 19 106/64 94 Room Air 07/04/25 07:00 73 07/04/25 02:57 36.7 C 80 18 100/61 95 Room Air Laboratory Results Coagulation 07/04/25 Range/Units 02:29 PT 11.9 (9.0-12.0) Seconds Comprehensive Metabolic Panel 07/04/25 Range/Units 08:32 Sodium 138 (136-145) mmol/L Potassium 4.2 (3.5-5.1) mmol/L Chloride 109 H (98-107) mmol/L Carbon Dioxide 12 L (21-32) mmol/L BUN 27 H (6-23) mg/dl Creatinine 0.61 (0.6-1.4) mg/dl Glucose 183 H (70-99(Fasting)) mg/dl Calcium 9.6 (8.6-10.3) mg/dl Intake and Output 07/03/25 07/04/25 07/04/25 22:59 06:59 14:59 Intake Total 1069.366 / 2038.113 506.8 / 2038.113 184.667 / 184.667 Balance 1069.366 / 2038.113 506.8 / 2038.113 184.667 / 184.667 Intake: IV 709.366 / 1288.113 266.8 / 1288.113 184.667 / 184.667 Heparin 75225 Unit/500 ml D5w 202.366 / 650.099 266.8 / 650.099 184.667 / 184.667 25,000 units In 500 ml @ 1,450 UNITS/HR 29 mls/hr IV .[id number] [facility] Rx#:[id number] Potassium Phosphate 21 mmol In 507 / 507 Sodium Chloride 0.9% 500 ml @ 88 mls/hr IV ONE ONE Rx#: [id number] Oral 360 / 750 240 / 750 Other: # Unmeasured Voids 2 Weight 110.268 kg Weight Measurement Method [facility] Care Time/CCT Total # of Minutes Spent Total Time Spent with Patient: Total time spent is greater than 50% in coordination of care (as documented) at patient's floor/unit and/or counseling patient: Coding Level of Care Code 22394 SUB INP/OBS CARE 3/50MIN Diagnoses Chest pain R07.9 CAD (coronary artery disease) I25.10 Heart failure with reduced ejection fraction I50.20 Hypertension I10 Hyperlipidemia E78.5 Diabetes mellitus E11.9 Frostbite, initial encounter T33.90XA Encounter type: initial encounter Time Spent (min) 30 (7) Frostbite Encounter type: initial encounter Qualified Code(s): T33.90XA - Superficial frostbite of unspecified sites, initial encounter
--- NOTE | 2025-07-04 14:03 | Pharmacy Report ---
Pharmacy Glycemic Short Note 2 - Date of Service July 04, 2025 - Glycemic Short BSG Results (Last 24 hours): 07/03/25 07/03/25 07/04/25 16:10 19:50 01:02 Glucose POC Glucose 200 H 178 H 251 H 07/04/25 07/04/25 07/04/25 07:24 08:32 11:16 Glucose 183 H POC Glucose 226 H 169 H OUTPATIENT ANTIDIABETIC REGIMEN: * n/a (off meds for three months) A1c = 12.7% ASSESSMENT: 07/04: * BSG elevated since stopping IV insulin infusion. * Fasting BSG = 226 mg/dL. Increase basal insulin by ~30%. * Tighten Novolog CF and CR for post prandial hyperglycemia. 07/03: * 55 yo M with h/oT2DM who presented with central crushing chest pain with radiation to R arm and back pain. * BSG of 328 mg/dL on presentation. Of note, patient reports being off medications for three months. * IV insulin infusion initiated 07/02 PM. BSGs improved nicely overnight. Anion gap and bicarb wnl this am. Insulin infusion calculator instructed RN to hold infusion around 10 AM for BSG below goal. Prior to this, infusion had been running at 2.9-3.6 units/hr. Diet resumed. * Ordered a one time dose of Lantus to start transition to SQ insulin. Further Lantus dosing TBD based on BSG trend. * Will utilize weight/stress 2 for Novolog. PLAN FOR INPATIENT GLYCEMIC CONTROL: * Hold outpatient oral diabetes medications * Basal insulin * Lantus 45 units SQ this morning * Bolus insulin * NovoLog per scale ACHS or Q6hrs while NPO * Goal Range: Low 120 mg/dL - High 23831 mg/dL * Correction Factor: 15 mg/dL/unit * Nutritional / Prandial insulin per carb ratio of 1 unit per 6 grams CHO consumed
[2025-07-04] MEDS: WARFARIN SOD 10 MG TAB PO SCH (16:51)
[2025-07-04 18:25] LABS: ANTI-Xa, UFH(UnfractionatedHep 0.19 IU/ml (0.3-0.7)
[2025-07-04] MEDS: MELATONIN 3 MG TAB PO PRN (20:52)
[2025-07-05 01:19] LABS: ANTI-Xa, UFH(UnfractionatedHep 0.31 IU/ml (0.3-0.7)
[2025-07-05 06:38] LABS: Anion Gap 5.0 (3-11); Blood Urea Nitrogen 13.0 mg/dl (6-23); Calcium 9.2 mg/dl (8.6-10.3); Carbon Dioxide 24.0 mmol/L (21-32); Chloride 105.0 mmol/L (98-107); Creatinine Clr Calc Pharmacy 212.8 ml/min; Glucose 255.0 mg/dl (70-99(Fasting)); INR 1.1 (0.9-1.1); Magnesium 1.6 mg/dl (1.7-2.4); Potassium 4.1 mmol/L (3.5-5.1); Prothrombin Time 11.4 Seconds (9.0-12.0); Sodium 134.0 mmol/L (136-145)
[2025-07-05] MEDS ORDERED: SODIUM PHOSPHATE 3 MMOL/1 ML INFUSION IV STA (07:24)
[2025-07-05 08:01] LABS: ANTI-Xa, UFH(UnfractionatedHep 0.28 IU/ml (0.3-0.7)
[2025-07-05] MEDS: LANTUS PER UNIT CHARGE SC SCH (08:26)
[2025-07-05] MEDS: MAGNESIUM SULFATE / D5W 1 GM/100 ML BAG IV ONE (08:29)
[2025-07-05] MEDS: SODIUM PHOSPHATE 21 MMOL in SODIUM CHLORIDE 0.9% 500 ML IV ONE (08:30)
[2025-07-05] MEDS: INFLUENZA VACC TS2025-26(6m+)/PF (IIV3) 0.5mL Syr IM ONE (08:38)
[2025-07-05] MEDS: PNEUMOCOCCAL VACCINE (PCV20) 20-VAL CONJ-DIP CRM/PF 0.5 ML SYR IM ONE (08:38)
--- NOTE | 2025-07-05 10:20 | Hospitalist Progress Note ---
Date of Service July 05, 2025 Assessment & Plan (1) Chest pain: (2) Hx of CABG: (3) Diabetes mellitus: (4) Hypertension: (5) Heart failure with reduced ejection fraction: (6) Hyperlipidemia: (7) CAD (coronary artery disease): (8) Major depressive disorder: (9) Frostbite: Plan 55 year old Man with PMH of CAD s/p CABG Apr 2024, Diabetes Mellitus Type II, HTN, Hyperlipidemia, HFrEF presented with central crushing chest pain with radiation to the right arm and back pain that started around 1:30pm on day of presentation. Aspirin given via EMS. Has been off medications for 3 months due to MA issues #Chest pain #CAB s/p CABG x 16 Apr 2024 Chest w/ radiation, elev trops EKG similar to prior Was on warfarin in past for LV thrombus Cards eval noted TTE noted EF 45-50%, apical kinesis. Cannot rule out associated thrombi, mild MR Currently on heparin - warfarin bridge Monitor daily INR Per Anticoagulation clinic in 02/2025, he was on 15mg on Sat and 10mg on other days. Patient confirmed #HFrEF #Hypertension #Hyperlipidemia Continue metoprolol succ 25 mg daily, atorvastatin Continue lisinopril Monitor BP Resume lasix. Reported he was on lasix in the past. Reviewed meds #Diabetes Mellitus Type II Labs on admission notable for AGMA with AGAP 15, bicarb of 15. pH of 7.3 6VBG, UA with 4+ketones HbA1C 12.7% Possible early DKA or starvation ketosis Was initially on insulin drip, successfully transitioned to sq Continue ISS #Hypomagnesemia Replete and monitor #Hypothermia #Wren bite XR foot was unremarkable Ortho recs noted Patient did not want to discuss his social issues, how he is feeling with me but stated he is ok to discuss it with CM RN noted some concerns about him crying. Patient may be overwhelmed with medical and social problems. Will get Psych liason to discuss and activities counselor him. If any concerns for depression, will consider Psych c/s CM reviewing homelessness/MA issues DVT Ppx: Heparin gtt + warfarin Code status: Full PCP: Will need set up with PCP appt I spent a total of 50 minutes coordinating, documenting and providing care for this patient excluding time spent in performance of separately billed services Admission and Anticipated Discharge Date Admission Date: July 02, 2025 Subjective Patient seen and examined Reports some nausea after breakfast Reports paresthesiae in feet No chest pain, SOB No other complaints Physical Exam Constitutional: + well hydrated; no acute distress Eyes: PERRL, conjunctivae normal, anicteric sclerae ENMT: external ear and nose normal, oropharynx normal Respiratory: normal respiratory effort, lungs clear to auscultation Cardiovascular: Rate/Rhythm: regular rate and regular rhythm Gastrointestinal (Abdomen): normal bowel sounds, soft, nontender, no hepatosplenomegaly Musculoskeletal: +pedal edema Neurologic: PERRL, EOMI, accommodation nl, no face palsy, no dysarthria Psychiatric: A+Ox3, euthymic affect Results & Data Results & Data Vital Signs (Past 12 Hours) Vital Signs Temp Pulse Resp BP Pulse Ox O2 Del Method 07/05/25 07:37 36.7 C 68 19 130/78 95 Room Air 07/05/25 02:44 37.5 C 68 20 120/59 L 96 Room Air 07/04/25 22:39 37.5 C 80 20 136/69 97 Room Air Laboratory Results Abnormal lab results 07/04/25 07/04/25 07/05/25 Range/Units 17:47 20:46 05:42 Heparin Anti-Xa, Unfract 0.19 L (0.3-0.7) IU/ml Sodium 134 L (136-145) mmol/L Creatinine 0.48 L (0.6-1.4) mg/dl BUN/Creatinine Ratio 27.1 H (10-20) Glucose 255 H (70-99(Fasting)) mg/dl POC Glucose 155 H (70-99) mg/dl Phosphorus 2.1 L (2.5-4.9) mg/dl Magnesium 1.6 L (1.7-2.4) mg/dl 07/05/25 07/05/25 07/05/25 Range/Units 07:20 07:23 11:14 Heparin Anti-Xa, Unfract 0.28 L (0.3-0.7) IU/ml Sodium (136-145) mmol/L Creatinine (0.6-1.4) mg/dl BUN/Creatinine Ratio (10-20) Glucose (70-99(Fasting)) mg/dl POC Glucose 212 H 150 H (70-99) mg/dl Phosphorus (2.5-4.9) mg/dl Magnesium (1.7-2.4) mg/dl 07/05/25 Range/Units 14:36 Heparin Anti-Xa, Unfract 0.24 L (0.3-0.7) IU/ml Sodium (136-145) mmol/L Creatinine (0.6-1.4) mg/dl BUN/Creatinine Ratio (10-20) Glucose (70-99(Fasting)) mg/dl POC Glucose (70-99) mg/dl Phosphorus (2.5-4.9) mg/dl Magnesium (1.7-2.4) mg/dl (9) Frostbite Encounter type: initial encounter Qualified Code(s): T33.90XA - Superficial frostbite of unspecified sites, initial encounter
--- NOTE | 2025-07-05 12:19 | Pharmacy Report ---
Pharmacy Glycemic Short Note 2 - Date of Service July 05, 2025 - Glycemic Short BSG Results (Last 24 hours): 07/04/25 07/04/25 07/05/25 15:59 20:46 05:42 Glucose 255 H POC Glucose 83 155 H 07/05/25 07/05/25 07:20 11:14 Glucose POC Glucose 212 H 150 H OUTPATIENT ANTIDIABETIC REGIMEN: * n/a (off meds for three months) A1c = 12.7% ASSESSMENT: 07/05: * Isael received 84 units of insulin yesterday, 45 of which were basal. BSGs were: 882-165-46-155 mg/dL. * Fasting BSG this AM remains elevated but did improve slightly: 212 mg/dL. * Confirmed with RN that no snacking/meals provided prior to check. Did receive 5 more units of basal this AM per scale. Will see how patient responds. May either be due to basal deficiency or basal dose wearing off. Should this trend continue, may need to split basal BID. * Trend downward in postprandials yesterday with dinner BSG being 83 mg/dL. Correction factor and carb ratio tightened yesterday. Given trend continued at lunchtime today, will loosen carb ratio only from lunch today forward. * Remains on heparin drip as bridge therapy with warfarin. 07/04: * BSG elevated since stopping IV insulin infusion. * Fasting BSG = 226 mg/dL. Increase basal insulin by ~30%. * Tighten Novolog CF and CR for post prandial hyperglycemia. 07/03: * 55 yo M with h/oT2DM who presented with central crushing chest pain with radiation to R arm and back pain. * BSG of 328 mg/dL on presentation. Of note, patient reports being off medications for three months. * IV insulin infusion initiated 07/02 PM. BSGs improved nicely overnight. Anion gap and bicarb wnl this am. Insulin infusion calculator instructed RN to hold infusion around 10 AM for BSG below goal. Prior to this, infusion had been running at 2.9-3.6 units/hr. Diet resumed. * Ordered a one time dose of Lantus to start transition to SQ insulin. Further Lantus dosing TBD based on BSG trend. * Will utilize weight/stress 2 for Novolog. PLAN FOR INPATIENT GLYCEMIC CONTROL: * Hold outpatient oral diabetes medications * Basal insulin * Lantus 40-50 units SC daily pending BSG (see eMAR for more details) * Bolus insulin * NovoLog per scale ACHS or Q6hrs while NPO * Goal Range: Low 120 mg/dL - High 160 mg/dL * Correction Factor: 15 mg/dL/unit * Nutritional / Prandial insulin per carb ratio of 1 unit per 8 grams CHO consumed
[2025-07-05] MEDS: ONDANSETRON INJ 2 MG/ML 2 ML VIAL IV PRN (12:44)
[2025-07-05 15:37] LABS: ANTI-Xa, UFH(UnfractionatedHep 0.24 IU/ml (0.3-0.7)
[2025-07-05] MEDS ORDERED: WARFARIN SOD 5 MG TAB PO SCH (16:00)
[2025-07-05] MEDS: WARFARIN SOD 10 MG TAB PO SCH (16:11)
[2025-07-05] MEDS: FUROSEMIDE 40 MG TAB PO ONE (16:50)
[2025-07-06 00:01] LABS: ANTI-Xa, UFH(UnfractionatedHep 0.27 IU/ml (0.3-0.7)
[2025-07-06 06:50] LABS: Hematocrit (blood only) 38.0 % (42.0-52.0); Hemoglobin 13.1 g/dL (14.0-18.0); Mean Corpuscular Hemoglobin 29.1 pg (25.0-34.0); Mean Corpuscular Volume 84.4 fL (80.0-100.0); Platelet Count 176 K/uL (130-400); RDW Standard Deviation 42.1 fL (36.4-46.3); Red Blood Count 4.50 M/uL (4.70-6.10); White Blood Count 9.23 K/ul (4.8-10.8)
[2025-07-06 07:15] LABS: Anion Gap 5.0 (3-11); Blood Urea Nitrogen 10.0 mg/dl (6-23); Calcium 9.3 mg/dl (8.6-10.3); Carbon Dioxide 26.0 mmol/L (21-32); Chloride 103.0 mmol/L (98-107); Creatinine Clr Calc Pharmacy 204.6 ml/min; Glucose 199.0 mg/dl (70-99(Fasting)); Magnesium 1.6 mg/dl (1.7-2.4); Potassium 4.0 mmol/L (3.5-5.1); Sodium 134.0 mmol/L (136-145)
[2025-07-06 07:23] LABS: ANTI-Xa, UFH(UnfractionatedHep 0.31 IU/ml (0.3-0.7)
[2025-07-06 07:26] LABS: INR 1.2 (0.9-1.1); Prothrombin Time 12.4 Seconds (9.0-12.0)
[2025-07-06] MEDS: FUROSEMIDE 40 MG TAB PO SCH (08:20)
[2025-07-06] MEDS: LANTUS PER UNIT CHARGE SC SCH (08:24)
--- NOTE | 2025-07-06 11:24 | Hospitalist Progress Note ---
Date of Service July 06, 2025 Assessment & Plan (1) Chest pain: (2) Hx of CABG: (3) Diabetes mellitus: (4) Hypertension: (5) Heart failure with reduced ejection fraction: (6) Hyperlipidemia: (7) CAD (coronary artery disease): (8) Major depressive disorder: (9) Frostbite: Plan 55 year old Man with PMH of CAD s/p CABG Apr 2024, Diabetes Mellitus Type II, HTN, Hyperlipidemia, HFrEF presented with central crushing chest pain with radiation to the right arm and back pain that started around 1:30pm on day of presentation. Aspirin given via EMS. Has been off medications for 3 months due to MA issues #Chest pain #CAB s/p CABG x 16 Apr 2024 Chest w/ radiation, elev trops EKG similar to prior Was on warfarin in past for LV thrombus Cards eval noted TTE noted EF 45-50%, apical kinesis. Cannot rule out associated thrombi, mild MR Currently on heparin - warfarin bridge Monitor daily INR. INR is 1.2 today Per Anticoagulation clinic in 02/2025, he was on 15mg on Sat and 10mg on other days. Patient confirmed #HFrEF #Hypertension #Hyperlipidemia Continue metoprolol succ 25 mg daily, atorvastatin Continue lisinopril Continue lasix Monitor BP #Diabetes Mellitus Type II Labs on admission notable for AGMA with AGAP 15, bicarb of 15. pH of 7.3 6VBG, UA with 4+ketones HbA1C 12.7% Possible early DKA or starvation ketosis Was initially on insulin drip, successfully transitioned to sq Continue ISS Patient stated he does not want insulin injections on discharge. Counseled patient that insulin will help better control of his DM. He understood but still declined. Part of the concern with insulin is also related with homeless situation/storage issues. He is open to insulin inpatient but not on discharge #Hypomagnesemia #Hypophosphatemia Replete and monitor #Hypothermia #Wren bite XR foot was unremarkable Ortho recs noted Concern for depression Psych consult placed CM working on social issues Will need all meds prescribed on dc DVT Ppx: Heparin gtt + warfarin Code status: Full PCP: Will need set up with PCP appt I spent a total of 50 minutes coordinating, documenting and providing care for this patient excluding time spent in performance of separately billed services Admission and Anticipated Discharge Date Admission Date: July 02, 2025 Subjective Patient seen and examined Reports paresthesia in feet. When asked about being depressed, he stated no but became tearful He was reluctant to discuss about that further but stated he is open to talking to psychiatry Physical Exam Constitutional: + well hydrated; no acute distress Eyes: PERRL, conjunctivae normal, anicteric sclerae ENMT: external ear and nose normal, oropharynx normal Respiratory: normal respiratory effort, lungs clear to auscultation Cardiovascular: Rate/Rhythm: regular rate and regular rhythm Gastrointestinal (Abdomen): normal bowel sounds, soft, nontender, no hepatosplenomegaly Musculoskeletal: +pedal edema Neurologic: PERRL, EOMI, accommodation nl, no face palsy, no dysarthria Psychiatric: AOX3 Results & Data Results & Data Vital Signs (Past 12 Hours) Vital Signs Temp Pulse Pulse Resp BP BP Pulse Ox 07/06/25 10:57 37.0 C 68 19 94/55 L 96 07/06/25 07:14 36.6 C 69 20 113/61 96 07/06/25 02:40 70 16 100/59 L 97 07/06/25 00:21 77 O2 Del Method 07/06/25 10:57 Room Air 07/06/25 07:14 Room Air 07/06/25 02:40 Room Air 07/06/25 00:21 Laboratory Results Abnormal lab results 07/05/25 07/05/25 07/05/25 Range/Units 14:36 16:15 20:44 RBC (4.70-6.10) M/uL Hgb (14.0-18.0) g/dL Hct (42.0-52.0) % PT (9.0-12.0) Seconds INR (0.9-1.1) Heparin Anti-Xa, Unfract 0.24 L (0.3-0.7) IU/ml Sodium (136-145) mmol/L Creatinine (0.6-1.4) mg/dl Glucose (70-99(Fasting)) mg/dl POC Glucose 173 H 128 H (70-99) mg/dl Phosphorus (2.5-4.9) mg/dl Magnesium (1.7-2.4) mg/dl 07/05/25 07/06/25 07/06/25 Range/Units 23:02 06:25 07:27 RBC 4.50 L (4.70-6.10) M/uL Hgb 13.1 L (14.0-18.0) g/dL Hct 38.0 L (42.0-52.0) % PT 12.4 H (9.0-12.0) Seconds INR 1.2 H (0.9-1.1) Heparin Anti-Xa, Unfract 0.27 L (0.3-0.7) IU/ml Sodium 134 L (136-145) mmol/L Creatinine 0.50 L (0.6-1.4) mg/dl Glucose 199 H (70-99(Fasting)) mg/dl POC Glucose 210 H (70-99) mg/dl Phosphorus 2.2 L (2.5-4.9) mg/dl Magnesium 1.6 L (1.7-2.4) mg/dl 07/06/25 Range/Units 11:34 RBC (4.70-6.10) M/uL Hgb (14.0-18.0) g/dL Hct (42.0-52.0) % PT (9.0-12.0) Seconds INR (0.9-1.1) Heparin Anti-Xa, Unfract (0.3-0.7) IU/ml Sodium (136-145) mmol/L Creatinine (0.6-1.4) mg/dl Glucose (70-99(Fasting)) mg/dl POC Glucose 178 H (70-99) mg/dl Phosphorus (2.5-4.9) mg/dl Magnesium (1.7-2.4) mg/dl (9) Frostbite Encounter type: initial encounter Qualified Code(s): T33.90XA - Superficial frostbite of unspecified sites, initial encounter
[2025-07-06] MEDS: MAGNESIUM OXIDE 400 MG TAB PO SCH (15:12)
[2025-07-06] MEDS: POT PHOSPHATE MONOBASIC W/ SOD TAB PO SCH (16:37)
[2025-07-07] MEDS: GABAPENTIN 100 MG CAP PO STA (01:51)
[2025-07-07 06:34] LABS: Hematocrit (blood only) 37.2 % (42.0-52.0); Hemoglobin 12.8 g/dL (14.0-18.0); Mean Corpuscular Hemoglobin 29.2 pg (25.0-34.0); Mean Corpuscular Volume 84.9 fL (80.0-100.0); Platelet Count 169 K/uL (130-400); RDW Standard Deviation 41.9 fL (36.4-46.3); Red Blood Count 4.38 M/uL (4.70-6.10); White Blood Count 10.61 K/ul (4.8-10.8)
[2025-07-07 07:04] LABS: INR 1.3 (0.9-1.1); Prothrombin Time 13.8 Seconds (9.0-12.0)
[2025-07-07 07:05] LABS: ANTI-Xa, UFH(UnfractionatedHep 0.30 IU/ml (0.3-0.7)
[2025-07-07 07:11] LABS: Anion Gap 7.0 (3-11); Blood Urea Nitrogen 12.0 mg/dl (6-23); Calcium 9.6 mg/dl (8.6-10.3); Carbon Dioxide 25.0 mmol/L (21-32); Chloride 103.0 mmol/L (98-107); Creatinine Clr Calc Pharmacy 193.0 ml/min; Glucose 163.0 mg/dl (70-99(Fasting)); Magnesium 1.6 mg/dl (1.7-2.4); Potassium 4.1 mmol/L (3.5-5.1); Sodium 135.0 mmol/L (136-145)
[2025-07-07] MEDS: LANTUS PER UNIT CHARGE SC SCH (09:02)
--- NOTE | 2025-07-07 10:22 | Pharmacy Report ---
Pharmacy Glycemic Short Note 2 - Date of Service July 07, 2025 - Glycemic Short BSG Results (Last 24 hours): 07/06/25 07/06/25 07/06/25 11:34 15:59 20:30 Glucose POC Glucose 178 H 122 H 269 H 07/07/25 07/07/25 05:46 07:24 Glucose 163 H POC Glucose 152 H OUTPATIENT ANTIDIABETIC REGIMEN: * n/a (off meds for three months) A1c = 12.7% ASSESSMENT: 07/07: * Patient received 85 units of insulin yesterday, 50 of which were basal. BSGs were: 441-236-416-269 mg/dL. * Fasting BSG finally improved to goal today, 152 mg/dL. Will back off basal dose slightly today as expecting patients fasting to continue to decrease daily now that basal deficiency is improved. May need to back off further in coming days. * No changes to Novolog regimen at this time. Remains on Heparin drip for bridge therapy with warfarin. Tolerating T2DM diet. 07/05: * Isael received 84 units of insulin yesterday, 45 of which were basal. BSGs were: 662-247-35-155 mg/dL. * Fasting BSG this AM remains elevated but did improve slightly: 212 mg/dL. * Confirmed with RN that no snacking/meals provided prior to check. Did receive 5 more units of basal this AM per scale. Will see how patient responds. May either be due to basal deficiency or basal dose wearing off. Should this trend continue, may need to split basal BID. * Trend downward in postprandials yesterday with dinner BSG being 83 mg/dL. Correction factor and carb ratio tightened yesterday. Given trend continued at lunchtime today, will loosen carb ratio only from lunch today forward. * Remains on heparin drip as bridge therapy with warfarin. 07/04: * BSG elevated since stopping IV insulin infusion. * Fasting BSG = 226 mg/dL. Increase basal insulin by ~30%. * Tighten Novolog CF and CR for post prandial hyperglycemia. 07/03: * 55 yo M with h/oT2DM who presented with central crushing chest pain with radiation to R arm and back pain. * BSG of 328 mg/dL on presentation. Of note, patient reports being off medications for three months. * IV insulin infusion initiated 07/02 PM. BSGs improved nicely overnight. Anion gap and bicarb wnl this am. Insulin infusion calculator instructed RN to hold infusion around 10 AM for BSG below goal. Prior to this, infusion had been running at 2.9-3.6 units/hr. Diet resumed. * Ordered a one time dose of Lantus to start transition to SQ insulin. Further Lantus dosing TBD based on BSG trend. * Will utilize weight/stress 2 for Novolog. PLAN FOR INPATIENT GLYCEMIC CONTROL: * Hold outpatient oral diabetes medications * Basal insulin * Lantus 45 units SC daily * Bolus insulin * NovoLog per scale ACHS or Q6hrs while NPO * Goal Range: Low 120 mg/dL - High 160 mg/dL * Correction Factor: 15 mg/dL/unit * Nutritional / Prandial insulin per carb ratio of 1 unit per 8 grams CHO consumed
--- NOTE | 2025-07-07 14:45 | Hospitalist Progress Note ---
Date of Service July 07, 2025 Assessment & Plan (1) Chest pain: (2) Hx of CABG: (3) Diabetes mellitus: (4) Hypertension: (5) Heart failure with reduced ejection fraction: (6) Hyperlipidemia: (7) CAD (coronary artery disease): (8) Major depressive disorder: (9) Frostbite: Plan as per previous hospitalist notes with addendum: 55 year old Man with PMH of CAD s/p CABG Apr 2024, Diabetes Mellitus Type II, HTN, Hyperlipidemia, HFrEF presented with central crushing chest pain with radiation to the right arm and back pain that started around 1:30pm on day of presentation. Aspirin given via EMS. Has been off medications for 3 months due to MA issues #Chest pain #CAB s/p CABG x 16 Apr 2024 Chest w/ radiation, elev trops EKG similar to prior Was on warfarin in past for LV thrombus Cards eval noted TTE noted EF 45-50%, apical kinesis. Cannot rule out associated thrombi, mild MR Currently on heparin - warfarin bridge Monitor daily INR. INR is 1.2 today Per Anticoagulation clinic in 02/2025, he was on 15mg on Sat and 10mg on other days. Patient confirmed 07/07 INR is 1.3 continue coumadin INR daily #HFrEF #Hypertension #Hyperlipidemia Continue metoprolol succ 25 mg daily, atorvastatin Continue lisinopril Continue lasix Monitor BP 07/07 euvolemic #Diabetes Mellitus Type II Labs on admission notable for AGMA with AGAP 15, bicarb of 15. pH of 7.3 6VBG, UA with 4+ketones HbA1C 12.7% Possible early DKA or starvation ketosis Was initially on insulin drip, successfully transitioned to sq Continue ISS Patient stated he does not want insulin injections on discharge. Counseled patient that insulin will help better control of his DM. He understood but still declined. Part of the concern with insulin is also related with homeless situation/storage issues. He is open to insulin inpatient but not on discharge #Hypomagnesemia #Hypophosphatemia - increase Mg to BID #Hypothermia #Wren bite XR foot was unremarkable Ortho recs noted Concern for depression Psych consult placed: awaiting recommendations CM working on social issues- including transitioning to a halfway Will need all meds prescribed on dc DVT Ppx: Heparin gtt + warfarin Code status: Full PCP: Will need set up with PCP appt Admission and Anticipated Discharge Date Admission Date: July 02, 2025 Subjective seen resting in bed, comfortable states he feels fine overall no chest pain, dyspnea, palpitations, dizziness during exam, patient became tearful states his diet was changed yesterday i advised that we maintain DM diet as his A1c is already 12 no other new symptoms Review of Systems Review of Systems: all noted and negative except for above Physical Exam Physical Exam: General- oriented x 3, not in distress, speaks in sentences with no effort or accessory muscle use Eyes- anicteric Neck- no JVD Lungs- clear breath sounds bilaterally, no rales/wheezes Heart- normal rate, regular rhythm; no murmurs Abdomen- normal bowel sounds, nondistended, soft, nontender Extremities- no pretibial edema, no calf tenderness Neuro- alert, oriented x 3; no gross focal neurologic deficits Skin- warm & dry Results & Data Results & Data Vital Signs (Past 12 Hours) Vital Signs Temp Pulse Resp BP Pulse Ox O2 Del Method 07/07/25 11:33 36.8 C 67 21 103/64 96 Room Air 07/07/25 07:56 36.5 C 62 22 118/75 95 Room Air all noted and reviewed including below (9) Frostbite Encounter type: initial encounter Qualified Code(s): T33.90XA - Superficial frostbite of unspecified sites, initial encounter
--- NOTE | 2025-07-07 15:42 | Psychiatric Consultation ---
Date of Consultation July 07, 2025 Impression / Recommendations Impression Presentation consistent with persistent adjustment disorder related to change in mood and function after myocardial infarction in 2023. He does not meet criteria for a major mood or psychotic disorder. No imminent safety concerns presented and he is future oriented. Unclear reason for medication non-adherence given his access to medical assistance; possible due to apathy and amotivation. No indication for inpatient psychiatric admission. Would benefit from connection to outpatient counseling, PCP, and case management. Overall, I spent a total of 80 minutes with this case including review of chart records, nursing report, review of lab work, direct evaluation of the patient at bedside, counseling the patient, discussion of the patient with the hospitalist provider, discussion with the psychiatric liaison during clinical rounds, and documentation in the electronic health record. (1) Persistent adjustment disorder: (2) Non compliance w medication regimen: Plan 07/07/25: See above Psych History Identifying Data 55 year old Man with PMH of CAD s/p CABG Apr 2024, Diabetes Mellitus Type II, HTN, Hyperlipidemia, HFrEF presented with chest pain. Psychiatry consulted for depression and safety evaluation. Chief Complaint "Living in my car, had chest pains and frostbite and toes" History of Present Illness Reports chest pain is resolved and that his toes will recover. Reports not taking his medications because he could not afford them. Says that he has medical assistance but he stopped taking the medications; did not disclose exact reason outside of being unable to afford them. Reports fair sleep and appetite and that his energy is up-and-down depending on the day. Denies SI. Denies HI. Was in a homeless penitent[facility] for the past 6 months however was asked to leave and he has been living in his car. Reports [place] last year and that his function has not been the same ever since. Complains of shoulder pain. Denies having persistent sadness. Denies history of mental health problems. 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 Denies history of drug or alcohol problems. Interested in case management and PCP. Would like to stay in the [place] area. Reports being unable to go back to work because he has a fear of something bad happening physically and he becomes tearful. Allergies Allergy/AdvReac Type Severity Reaction Status Date / Time No Known Allergies Allergy Verified 07/05/25 15:43 Home Medications Medication Instructions Recorded Confirmed Type blood sugar diagnostic (Oculis LabsTouch #100 ea 11/11/24 Rx Ultra Test strips) blood-glucose meter (OneTouch #1 ea 11/11/24 Rx Ultra2 Meter) blood-glucose sensor (FreeStyle #1 ea 11/11/24 Rx Megan 3 Plus Sensor device) blood-glucose,window sash installer,cont #1 ea 11/11/24 Rx (FreeStyle Megan 3 [place]berry) lancets 33 gauge #100 ea 11/11/24 Rx aspirin 81 mg chewable tablet 81 mg PO DAILY 07/02/25 07/02/25 History atorvastatin 80 mg tablet 80 mg PO DAILY 07/02/25 07/02/25 History diclofenac sodium 1 % topical gel 1 ea topical UD PRN pain 07/02/25 07/02/25 History empagliflozin 25 mg tablet 25 mg PO DAILY 07/02/25 07/02/25 History (Jardiance) famotidine 20 mg tablet 20 mg PO BID 07/02/25 07/02/25 History glipizide 10 mg tablet, extended 10 mg PO DAILY 07/02/25 07/02/25 History release 24 hr lisinopril 20 mg tablet 20 mg PO DAILY 07/02/25 07/02/25 History metformin 500 mg tablet,extended 500 mg PO BID 07/02/25 07/02/25 History release 24 hr metoprolol succinate 25 mg 25 mg PO DAILY 07/02/25 07/02/25 History tablet,extended release 24 hr potassium chloride 10 mEq 10 meq PO DAILY 07/02/25 07/02/25 History tablet,extended release warfarin 5 mg tablet 10 mg PO DAILY 07/02/25 07/05/25 History furosemide 40 mg tablet 40 mg PO DAILY 07/05/25 07/05/25 History Patient History Medical History Medical non-compliance Chronic low back pain Diabetes mellitus Scabies Surgical History No history of previous surgery Family History Denies family history of Ovarian cancer Prostate cancer Myocardial infarction Breast cancer Colorectal cancer Social History (System 07/05/25 @ 15:43 by Delfina Rausch) Smoking Status: Current every day smoker Tobacco Type: Cigarettes Age Started Using Tobacco: 30; Age Quit Using Tobacco: 50; packs per day: 2; Cigarettes Per Day: 20; Second Hand Exposure: No; Do You Dip or Chew Tobacco: No; Hx Alcohol Use: No Hx Substance Use: No Preferred Language: Maori Communication Ability: Effective Visual Impairment: No Limitations Hearing Ability: Normal 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 Beliefs That Will Affect Care: None marital status: Single Current Living Situation: Alone Current Living Situation Comment: lives in his car current occupational status: employed current occupation: [employer] Feels Safe at Home: Yes and Hesitant to Answer Childhood Exposure to Second-Hand Smoke: Yes Diet: regular caffeine: No during the past year weight has: decreased > 10 lbs Dental Care, Regularly: Yes Physical Activity Frequency: Daily Sunscreen Use: No Assistive Devices: None Physical Exam Mental Examination: Appearance: Disheveled Eye Contact: Maintains Eye Contact Motor Behavior: Unremarkable Speech: Normal Mood: Euthymic and Calm Affect: Congruent and Sad (tearful briefly) Thought Process: Intact and Linear Thought Content: Intact Hallucinations: None Insight: Fair (to limited) Judgement: Poor (to limited, poor med adherence) Vital Signs (Past 24 Hours): Last Vital Signs Temp 36.8 C 07/07/25 11:33 Pulse 70 07/07/25 15:21 Resp 21 07/07/25 11:33 BP 103/64 07/07/25 11:33 Pulse Ox 96 07/07/25 11:33 O2 Del Method Room Air 07/07/25 11:33 Results & Data (PSY) Medications Administered Acetaminophen (Acetaminophen 325 Mg Tab) 650 mg PO Q4H PRN PRN Reason: Pain or Fever Stop: 08/01/25 19:38 Last Admin: 07/06/25 07:44 Dose: 650 mg Documented By: Admin: 07/02/25 21:08 Dose: 650 mg Documented By: HENRIQUE Atorvastatin Calcium (Atorvastatin 40 Mg Tab) 80 mg PO QAM [facility] Stop: 08/01/25 18:29 Last Admin: 07/07/25 09:02 Dose: 80 mg Documented By: Admin: 07/06/25 08:19 Dose: 80 mg Documented By: Admin: 07/05/25 08:27 Dose: 80 mg Documented By: Admin: 07/04/25 08:29 Dose: 80 mg Documented By: Admin: 07/03/25 10:04 Dose: 80 mg Documented By: Admin: 07/02/25 20:34 Dose: 80 mg Documented By: HENRIQUE Furosemide (Furosemide 40 Mg Tab) 40 mg PO QAM [facility] Stop: 08/05/25 08:59 Last Admin: 07/07/25 09:02 Dose: 40 mg Documented By: Admin: 07/06/25 08:20 Dose: 40 mg Documented By: MICHAEL Heparin Sodium/Dextrose (Heparin 61689 Unit/500 Ml D5w) 25,000 units in 500 mls @ 43 mls/hr IV .[id number] DEREK; Protocol Stop: 08/01/25 18:59 Last Admin: 07/07/25 14:46 Dose: 2,150 units/hr, 43 mls/hr Documented By: VILMA Co-signed By: RNC Titration: 07/07/25 14:46 Dose: Infused Documented By: VILMA Co-signed By: RNC Titration: 07/07/25 07:15 Dose: 2,150 units/hr, 43 mls/hr Documented By: VILMA Co-signed By: HENRIQUE Admin: 07/07/25 03:24 Dose: 2,150 units/hr, 43 mls/hr Documented By: HENRIQUE Co-signed By: CEDesire Titration: 07/07/25 03:23 Dose: Infused Documented By: HENRIQUE Co-signed By: CEW Admin: 07/06/25 15:45 Dose: 2,150 units/hr, 43 mls/hr Documented By: MICHAEL Co-signed By: ARISTEO Titration: 07/06/25 15:45 Dose: Infused Documented By: MICHAEL Co-signed By: ARISTEO Titration: 07/06/25 06:52 Dose: 2,150 units/hr, 43 mls/hr Documented By: MICHAEL Co-signed By: HENRIQUE Admin: 07/06/25 04:31 Dose: 2,150 units/hr, 43 mls/hr Documented By: HENRIQUE Co-signed By: GTH Titration: 07/06/25 04:30 Dose: Infused Documented By: HENRIQUE Co-signed By: GTH Titration: 07/06/25 00:30 Dose: 2,150 units/hr, 43 mls/hr Documented By: HENRIQUE Co-signed By: GTH Titration: 07/05/25 15:50 Dose: 2,050 units/hr, 41 mls/hr Documented By: OO Co-signed By: KTS Admin: 07/05/25 15:25 Dose: 1,950 units/hr, 39 mls/hr Documented By: OO Co-signed By: KJS Titration: 07/05/25 15:25 Dose: Infused Documented By: OO Co-signed By: KJS Titration: 07/05/25 08:10 Dose: 1,950 units/hr, 39 mls/hr Documented By: OO Co-signed By: KJS Titration: 07/05/25 07:05 Dose: 1,850 units/hr, 37 mls/hr Documented By: OO Co-signed By: TP Admin: 07/05/25 06:21 Dose: 1,850 units/hr, 37 mls/hr Documented By: TP Co-signed By: GTH Titration: 07/05/25 06:21 Dose: Infused Documented By: TP Co-signed By: GTH Admin: 07/04/25 19:56 Dose: 1,850 units/hr, 37 mls/hr Documented By: TP Co-signed By: GTH Titration: 07/04/25 19:56 Dose: Infused Documented By: TP Co-signed By: GTH Titration: 07/04/25 19:01 Dose: 1,850 units/hr, 37 mls/hr Documented By: TP Co-signed By: NMK Titration: 07/04/25 18:44 Dose: 1,850 units/hr, 37 mls/hr Documented By: NMK Co-signed By: LAF Admin: 07/04/25 12:30 Dose: Not Given Documented By: Admin: 07/04/25 11:41 Dose: 1,700 units/hr, 34 mls/hr Documented By: NMK Co-signed By: ENS Titration: 07/04/25 10:50 Dose: Infused Documented By: NMK Co-signed By: ENS Admin: 07/04/25 09:43 Dose: Not Given Documented By: Titration: 07/04/25 05:03 Dose: 1,600 units/hr, 32 mls/hr Documented By: HENRIQUE Co-signed By: KRT Titration: 07/03/25 19:51 Dose: 1,450 units/hr, 29 mls/hr Documented By: HENRIQUE Co-signed By: KRT Admin: 07/03/25 17:59 Dose: 1,300 units/hr, 26 mls/hr Documented By: MARIANNE Co-signed By: GONSALO Titration: 07/03/25 17:59 Dose: Infused Documented By: NMK Co-signed By: KJS Titration: 07/03/25 12:04 Dose: 1,300 units/hr, 26 mls/hr Documented By: MARIANNE Co-signed By: Titration: 07/03/25 04:12 Dose: 1,150 units/hr, 23 mls/hr Documented By: HENRIQUE Co-signed By: ALFONSO Admin: 07/02/25 20:28 Dose: 1,000 units/hr, 20 mls/hr Documented By: HENRIQUE Co-signed By: YAZ Insulin Aspart (Insulin Aspart Per Unit Charge) 0 units SC ACHS [facility] Stop: 08/02/25 11:29 Last Admin: 07/07/25 13:10 Dose: 15 units Documented By: VILMA Co-signed By: ARISTEO Admin: 07/07/25 09:01 Dose: 4 units Documented By: VILMA Co-signed By: tab Admin: 07/06/25 20:53 Dose: 8 units Documented By: HENRIQUE Co-signed By: BECKY Admin: 07/06/25 16:37 Dose: 7 units Documented By: MICHAEL Co-signed By: ARISTEO Admin: 07/06/25 12:10 Dose: 7 units Documented By: OO Co-signed By: ANNIE Admin: 07/06/25 08:24 Dose: 13 units Documented By: ONadiya Co-signed By: ARISTEO Admin: 07/05/25 22:10 Dose: Not Given Documented By: Admin: 07/05/25 16:53 Dose: 10 units Documented By: OO Co-signed By: REGAN Admin: 07/05/25 12:37 Dose: 5 units Documented By: OO Co-signed By: KTS Admin: 07/05/25 08:26 Dose: 9 units Documented By: OO Co-signed By: KTS Admin: 07/04/25 20:52 Dose: 2 units Documented By: TP Co-signed By: SKS Admin: 07/04/25 16:50 Dose: 13 units Documented By: MARIANNE Co-signed By: CLARISSA Admin: 07/04/25 11:41 Dose: 12 units Documented By: MARIANNE Co-signed By: Admin: 07/04/25 08:28 Dose: 12 units Documented By: MARIANNE Co-signed By: CLARISSA Admin: 07/03/25 20:07 Dose: 1 units Documented By: HENRIQUE Co-signed By: SUZETTE Admin: 07/03/25 16:47 Dose: 9 units Documented By: MARIANNE Co-signed By: Admin: 07/03/25 12:04 Dose: 4 units Documented By: MARIANNE Co-signed By: Insulin Glargine (Lantus Per Unit Charge) 45 units SC DAILY [facility] Stop: 08/04/25 08:59 Last Admin: 07/07/25 09:02 Dose: 45 units Documented By: VILMA Co-signed By: tab Lisinopril (Lisinopril 20 Mg Tab) 20 mg PO QAM [facility] Stop: 08/02/25 08:59 Last Admin: 07/07/25 09:02 Dose: 20 mg Documented By: Admin: 07/06/25 08:19 Dose: 20 mg Documented By: Admin: 07/05/25 08:27 Dose: 20 mg Documented By: Admin: 07/04/25 08:29 Dose: 20 mg Documented By: Admin: 07/03/25 10:04 Dose: 20 mg Documented By: MARIANNE Melatonin (Melatonin 3 Mg Tab) 3 mg PO HS PRN PRN Reason: Sleep Stop: 08/01/25 19:38 Last Admin: 07/04/25 20:52 Dose: 3 mg Documented By: MCKAY Metoprolol Succinate (Metoprolol Succ 25mg Ext Rel Tab) 25 mg PO QAM [facility] Stop: 08/01/25 18:14 Last Admin: 07/07/25 09:02 Dose: 25 mg Documented By: Admin: 07/06/25 08:19 Dose: 25 mg Documented By: Admin: 07/05/25 08:27 Dose: 25 mg Documented By: Admin: 07/04/25 08:29 Dose: 25 mg Documented By: Admin: 07/03/25 10:04 Dose: 25 mg Documented By: Admin: 07/02/25 20:34 Dose: 25 mg Documented By: HENRIQUE Ondansetron HCl (Ondansetron Inj 2 Mg/Ml 2 Ml Vial) 4 mg IV Q6H PRN PRN Reason: Nausea Stop: 08/01/25 19:38 Last Admin: 07/05/25 12:44 Dose: 4 mg Documented By: MICHAEL Potassium Phosphate (Pot Phosphate Monobasic W/ Sod Tab) 1 tab PO QID [facility] Stop: 07/07/25 16:59 Last Admin: 07/07/25 13:11 Dose: 1 tab Documented By: Admin: 07/07/25 09:19 Dose: 1 tab Documented By: Admin: 07/06/25 20:52 Dose: 1 tab Documented By: Admin: 07/06/25 16:37 Dose: 1 tab Documented By: MICHAEL Warfarin Sodium (Warfarin Sod 10 Mg Tab) 10 mg PO DAILY@1600 [facility] Stop: 08/04/25 15:59 Last Admin: 07/06/25 15:12 Dose: 10 mg Documented By: Admin: 07/05/25 16:11 Dose: 10 mg Documented By: MICHAEL [place] [address] IN/OBS CONSULT LVL 5,80M Patient Type Established History Comprehensive Exam Comprehensive Medical Decision Making High Complexity Diagnoses Persistent adjustment disorder F43.20 Non compliance w medication regimen Z91.148
[2025-07-07] MEDS: MAGNESIUM OXIDE 400 MG TAB PO SCH (21:38)
[2025-07-08 06:07] LABS: Hematocrit (blood only) 37.7 % (42.0-52.0); Hemoglobin 12.8 g/dL (14.0-18.0); Immature Granulocytes # (auto) 0.03 K/uL (0.01-0.20); Immature Granulocytes % (auto) 0.3 %; Mean Corpuscular Hemoglobin 28.8 pg (25.0-34.0); Mean Corpuscular Volume 84.7 fL (80.0-100.0); Platelet Count 195 K/uL (130-400); RDW Standard Deviation 42.6 fL (36.4-46.3); Red Blood Count 4.45 M/uL (4.70-6.10); White Blood Count 9.02 K/ul (4.8-10.8)
[2025-07-08 06:22] LABS: Anion Gap 5.0 (3-11); Blood Urea Nitrogen 13.0 mg/dl (6-23); Calcium 9.9 mg/dl (8.6-10.3); Carbon Dioxide 26.0 mmol/L (21-32); Chloride 105.0 mmol/L (98-107); Creatinine Clr Calc Pharmacy 217.7 ml/min; Glucose 136.0 mg/dl (70-99(Fasting)); Magnesium 1.8 mg/dl (1.7-2.4); Potassium 3.9 mmol/L (3.5-5.1); Sodium 136.0 mmol/L (136-145)
[2025-07-08 06:30] LABS: ANTI-Xa, UFH(UnfractionatedHep 0.32 IU/ml (0.3-0.7)
[2025-07-08 06:33] LABS: INR 1.3 (0.9-1.1); Prothrombin Time 13.6 Seconds (9.0-12.0)
[2025-07-08 10:42] LABS: Appearance Urine Clear (Clear); Bacteria Urine Automated None Seen (None Seen); Cast Urine Automated 0-2 /lpf (0-2); Epithelial Cell Urine Auto 0-2 /hpf (0-2); Glucose Urine UA Negative (Negative); RBC Urine Automated 0-2 /hpf (0-2)
--- NOTE | 2025-07-08 14:09 | Hospitalist Progress Note ---
Date of Service July 08, 2025 Assessment & Plan (1) Chest pain: (2) Hx of CABG: (3) Diabetes mellitus: (4) Hypertension: (5) Heart failure with reduced ejection fraction: (6) Hyperlipidemia: (7) CAD (coronary artery disease): (8) Major depressive disorder: (9) Frostbite: Plan as per previous hospitalist notes with addendum: 55 year old Man with PMH of CAD s/p CABG Apr 2024, Diabetes Mellitus Type II, HTN, Hyperlipidemia, HFrEF presented with central crushing chest pain with radiation to the right arm and back pain that started around 1:30pm on day of presentation. Aspirin given via EMS. Has been off medications for 3 months due to MA issues #Chest pain #CAB s/p CABG x 16 Apr 2024 Chest w/ radiation, elev trops EKG similar to prior Was on warfarin in past for LV thrombus Cards eval noted TTE noted EF 45-50%, apical kinesis. Cannot rule out associated thrombi, mild MR Currently on heparin - warfarin bridge Monitor daily INR. INR is 1.2 today Per Anticoagulation clinic in 02/2025, he was on 15mg on Sat and 10mg on other days. Patient confirmed 07/07 INR is 1.3 continue coumadin INR daily 07/08 INR 1.3 increase coumadin INR daily #HFrEF #Hypertension #Hyperlipidemia Continue metoprolol succ 25 mg daily, atorvastatin Continue lisinopril Continue lasix Monitor BP 07/07 euvolemic #Diabetes Mellitus Type II Labs on admission notable for AGMA with AGAP 15, bicarb of 15. pH of 7.3 6VBG, UA with 4+ketones HbA1C 12.7% Possible early DKA or starvation ketosis Was initially on insulin drip, successfully transitioned to sq Continue ISS Patient stated he does not want insulin injections on discharge. Counseled patient that insulin will help better control of his DM. He understood but still declined. Part of the concern with insulin is also related with homeless situation/storage issues. He is open to insulin inpatient but not on discharge #Hypomagnesemia #Hypophosphatemia - increase Mg to BID #Hypothermia #Wren bite XR foot was unremarkable Ortho recs noted Concern for depression Psych consult placed: recommend counselling as outpatient CM working on social issues- including transitioning to a residential Will need all meds prescribed on dc DVT Ppx: Heparin gtt + warfarin Code status: Full PCP: Will need set up with PCP appt Admission and Anticipated Discharge Date Admission Date: July 02, 2025 Subjective seen resting in bed, comfortable states he feels fine overall no chest pain, dyspnea, palpitations, dizziness Review of Systems Review of Systems: all noted and negative except for above Physical Exam Physical Exam: General- oriented x 3, not in distress, speaks in sentences with no effort or accessory muscle use Eyes- anicteric Neck- no JVD Lungs- clear breath sounds bilaterally, no rales/wheezes Heart- normal rate, regular rhythm; no murmurs Abdomen- normal bowel sounds, nondistended, soft, nontender Extremities- no pretibial edema, no calf tenderness Neuro- alert, oriented x 3; no gross focal neurologic deficits Skin- warm & dry Results & Data Results & Data Vital Signs (Past 12 Hours) Vital Signs Temp Pulse Pulse Resp BP Pulse Ox O2 Del Method 07/08/25 12:19 36.4 C L 65 19 111/68 97 Room Air 07/08/25 08:24 36.6 C 65 22 124/75 95 Room Air 07/08/25 07:29 60 all noted and reviewed including below (9) Frostbite Encounter type: initial encounter Qualified Code(s): T33.90XA - Superficial frostbite of unspecified sites, initial encounter
[2025-07-08] MEDS: WARFARIN SOD 2.5 MG TAB PO SCH (16:43)
[2025-07-09 06:25] LABS: ANTI-Xa, UFH(UnfractionatedHep 0.31 IU/ml (0.3-0.7)
[2025-07-09 06:29] LABS: INR 1.5 (0.9-1.1); Prothrombin Time 15.6 Seconds (9.0-12.0)
--- NOTE | 2025-07-09 12:02 | Pharmacy Report ---
Pharmacy Glycemic Short Note 2 - Date of Service July 09, 2025 - Glycemic Short BSG Results (Last 24 hours): 07/08/25 07/08/25 07/09/25 16:22 20:38 07:23 POC Glucose 110 H 193 H 159 H 07/09/25 11:23 POC Glucose 341 H* OUTPATIENT ANTIDIABETIC REGIMEN: * n/a (off meds for three months) A1c = 12.7% ASSESSMENT: 07/09: * Isael received 83 units of insulin yesterday, 45 of which were basal. BSGs were: [phone] mg/dL. Improved with tightened carb ratio yesterday. * Fasting BSG is 159 mg/dL this AM. No change to basal dosing. * Lunchtime BSG was significantly elevated at 341 mg/dL. Spoke with patient's RN, and patient had late breakfast with coverage and then lunch BSG taken one hour later. This likely explains the elevated BSG. * Will loosen correction factor significantly only for lunch administration today to prevent stacking of doses and lows this evening. Resume previous correction factor at dinner. 07/07: * Patient received 85 units of insulin yesterday, 50 of which were basal. BSGs were: [phone] mg/dL. * Fasting BSG finally improved to goal today, 152 mg/dL. Will back off basal dose slightly today as expecting patients fasting to continue to decrease daily now that basal deficiency is improved. May need to back off further in coming days. * No changes to Novolog regimen at this time. Remains on Heparin drip for bridge therapy with warfarin. Tolerating T2DM diet. 07/05: * Isael received 84 units of insulin yesterday, 45 of which were basal. BSGs were: [phone] mg/dL. * Fasting BSG this AM remains elevated but did improve slightly: 212 mg/dL. * Confirmed with RN that no snacking/meals provided prior to check. Did receive 5 more units of basal this AM per scale. Will see how patient responds. May either be due to basal deficiency or basal dose wearing off. Should this trend continue, may need to split basal BID. * Trend downward in postprandials yesterday with dinner BSG being 83 mg/dL. Correction factor and carb ratio tightened yesterday. Given trend continued at lunchtime today, will loosen carb ratio only from lunch today forward. * Remains on heparin drip as bridge therapy with warfarin. 07/04: * BSG elevated since stopping IV insulin infusion. * Fasting BSG = 226 mg/dL. Increase basal insulin by ~30%. * Tighten Novolog CF and CR for post prandial hyperglycemia. 07/03: * 55 yo M with h/oT2DM who presented with central crushing chest pain with radiation to R arm and back pain. * BSG of 328 mg/dL on presentation. Of note, patient reports being off medications for three months. * IV insulin infusion initiated 07/02 PM. BSGs improved nicely overnight. Anion gap and bicarb wnl this am. Insulin infusion calculator instructed RN to hold infusion around 10 AM for BSG below goal. Prior to this, infusion had been running at 2.9-3.6 units/hr. Diet resumed. * Ordered a one time dose of Lantus to start transition to SQ insulin. Further Lantus dosing TBD based on BSG trend. * Will utilize weight/stress 2 for Novolog. PLAN FOR INPATIENT GLYCEMIC CONTROL: * Hold outpatient oral diabetes medications * Basal insulin * Lantus 45 units SC daily * Bolus insulin * NovoLog per scale ACHS or Q6hrs while NPO * Goal Range: Low 120 mg/dL - High 160 mg/dL * Correction Factor: 15 mg/dL/unit * Nutritional / Prandial insulin per carb ratio of 1 unit per 7 grams CHO consumed
--- NOTE | 2025-07-09 14:44 | Hospitalist Progress Note ---
Date of Service July 09, 2025 Assessment & Plan (1) Chest pain: (2) Hx of CABG: (3) Diabetes mellitus: (4) Hypertension: (5) Heart failure with reduced ejection fraction: (6) Hyperlipidemia: (7) CAD (coronary artery disease): (8) Major depressive disorder: (9) Frostbite: Plan as per previous hospitalist notes with addendum: 55 year old Man with PMH of CAD s/p CABG Apr 2024, Diabetes Mellitus Type II, HTN, Hyperlipidemia, HFrEF presented with central crushing chest pain with radiation to the right arm and back pain that started around 1:30pm on day of presentation. Aspirin given via EMS. Has been off medications for 3 months due to MA issues #Chest pain #CAD s/p CABG x 16 Apr 2024 #possible Cardiac Thrombus Chest w/ radiation, elev trops EKG similar to prior Was on warfarin in past for LV thrombus Cards eval noted TTE noted EF 45-50%, apical kinesis. Cannot rule out associated thrombi, mild MR Currently on heparin - warfarin bridge Per Anticoagulation clinic in 02/2025, he was on 15mg on Sat and 10mg on other days. Patient confirmed 07/09 INR is 1.5 continue coumadin 12.5mg po daily INR daily #HFrEF #Hypertension #Hyperlipidemia euvolemic Continue metoprolol succ 25 mg daily, atorvastatin Continue lisinopril Continue lasix Monitor BP #Diabetes Mellitus Type II Labs on admission notable for AGMA with AGAP 15, bicarb of 15. pH of 7.3 6VBG, UA with 4+ketones HbA1C 12.7% Possible early DKA or starvation ketosis Was initially on insulin drip, successfully transitioned to sq Continue ISS Patient stated he does not want insulin injections on discharge. Counseled patient that insulin will help better control of his DM. He understood but still declined. Part of the concern with insulin is also related with homeless situation/storage issues. He is open to insulin inpatient but not on discharge 07/09 DM diet lifted for now as patient tearful, declining all medications as he prefers a regular diet continue Insulin Lantus and ISS monitor BSGs closely #Hypomagnesemia #Hypophosphatemia - increased Mg to BID Mg 1.8 #Hypothermia #Wren bite -- XR foot was unremarkable Ortho recs noted Concern for depression Psych consult placed: recommend counselling as outpatient -- Psych re-evaluation requested as patient was tearful again this morning CM working on social issues- including transitioning to a group home Will need all meds prescribed on dc DVT Ppx: Heparin gtt + warfarin Code status: Full PCP: Will need set up with PCP appt Admission and Anticipated Discharge Date Admission Date: July 02, 2025 Subjective notified by RN that patient was tearful, declining all medications, because of diabetic diet discussed with RN, diabetic diet lifted for now to address above seen resting in bed, comfortable states he feels ok overall no chest pain, dyspnea, palpitations, dizziness no other new symptoms Review of Systems Review of Systems: all noted and negative except for above Physical Exam Physical Exam: General- oriented x 3, not in distress, speaks in sentences with no effort or accessory muscle use Eyes- anicteric Neck- no JVD Lungs- clear breath sounds bilaterally Heart- normal rate, regular rhythm; no murmurs Abdomen- normal bowel sounds, nondistended, soft, nontender Extremities- no pretibial edema, no calf tenderness Neuro- alert, oriented x 3; no gross focal neurologic deficits Skin- warm & dry Results & Data Results & Data Vital Signs (Past 12 Hours) Vital Signs Temp Pulse Pulse Resp BP BP Pulse Ox 07/09/25 11:56 36.6 C 66 20 124/70 96 07/09/25 09:02 36.6 C 68 20 124/75 96 07/09/25 08:09 63 07/09/25 04:20 37.0 C 66 17 109/67 95 O2 Del Method 07/09/25 11:56 Room Air 07/09/25 09:02 Room Air 07/09/25 08:09 07/09/25 04:20 Room Air all noted and reviewed including below (9) Frostbite Encounter type: initial encounter Qualified Code(s): T33.90XA - Superficial frostbite of unspecified sites, initial encounter
[2025-07-10 06:08] LABS: Hematocrit (blood only) 38.1 % (42.0-52.0); Hemoglobin 13.0 g/dL (14.0-18.0); Immature Granulocytes # (auto) 0.05 K/uL (0.01-0.20); Immature Granulocytes % (auto) 0.5 %; Mean Corpuscular Hemoglobin 29.4 pg (25.0-34.0); Mean Corpuscular Volume 86.2 fL (80.0-100.0); Platelet Count 204 K/uL (130-400); RDW Standard Deviation 43.1 fL (36.4-46.3); Red Blood Count 4.42 M/uL (4.70-6.10); White Blood Count 10.89 K/ul (4.8-10.8)
[2025-07-10 06:28] LABS: INR 1.6 (0.9-1.1); Prothrombin Time 16.8 Seconds (9.0-12.0)
[2025-07-10 06:35] LABS: Anion Gap 4.0 (3-11); Blood Urea Nitrogen 14.0 mg/dl (6-23); Calcium 10.1 mg/dl (8.6-10.3); Carbon Dioxide 26.0 mmol/L (21-32); Chloride 103.0 mmol/L (98-107); Creatinine Clr Calc Pharmacy 180.8 ml/min; Glucose 201.0 mg/dl (70-99(Fasting)); Potassium 4.4 mmol/L (3.5-5.1); Sodium 133.0 mmol/L (136-145)
[2025-07-10 06:36] LABS: ANTI-Xa, UFH(UnfractionatedHep 0.30 IU/ml (0.3-0.7)
[2025-07-10] MEDS: LANTUS PER UNIT CHARGE SC SCH (08:55)
[2025-07-10] MEDS ORDERED: DICLOFENAC SOD 1% GEL 100 GM TUBE EXT PRN (16:29)
--- NOTE | 2025-07-10 18:20 | Hospitalist Progress Note ---
Date of Service July 10, 2025 Assessment & Plan (1) Chest pain: (2) Hx of CABG: (3) Diabetes mellitus: (4) Hypertension: (5) Heart failure with reduced ejection fraction: (6) Hyperlipidemia: (7) CAD (coronary artery disease): (8) Major depressive disorder: (9) Frostbite: Plan Mr. Jackman is a 55 year old Man with PMH of CAD s/p CABG Apr 2024, Diabetes Mellitus Type II, HTN, Hyperlipidemia, HFrEF presented with central crushing chest pain with radiation to the right arm and back pain that started around 1:30pm on day of presentation. Aspirin given via EMS. Has been off medications for 3 months due to MA issues #Chest pain #CAD s/p CABG x 16 Apr 2024 #possible Cardiac Thrombus Chest w/ radiation, elev trops EKG similar to prior Was on warfarin in past for LV thrombus Cards eval noted TTE noted EF 45-50%, apical kinesis. Cannot rule out associated thrombi, mild MR Currently on heparin - warfarin bridge Per Anticoagulation clinic in 02/2025, he was on 15mg on Sat and 10mg on other days. Patient confirmed INR is 1.6 continue coumadin 12.5mg po daily INR daily #HFrEF #Hypertension #Hyperlipidemia euvolemic Continue metoprolol succ 25 mg daily, atorvastatin Continue lisinopril Continue lasix Monitor BP #Diabetes Mellitus Type II Labs on admission notable for AGMA with AGAP 15, bicarb of 15. pH of 7.3 6VBG, UA with 4+ketones HbA1C 12.7% Possible early DKA or starvation ketosis Was initially on insulin drip, successfully transitioned to sq Continue ISS Patient stated he does not want insulin injections on discharge. Counseled patient that insulin will help better control of his DM. He understood but still declined. Part of the concern with insulin is also related with homeless situation/storage issues. He is open to insulin inpatient but not on discharge DM diet lifted for now as patient tearful, declining all medications as he prefers a regular diet continue Insulin Lantus and ISS monitor BSGs closely, glycemic pharmacy #Hypomagnesemia #Hypophosphatemia - increased Mg to BID Mg 1.8 #Hypothermia #Wren bite -- XR foot was unremarkable Ortho recs noted CM working on social issues- including transitioning to a assisted, patient reports he called all the shelters with no success Will need all meds prescribed on dc DVT Ppx: Heparin gtt + warfarin Code status: Full PCP: Will need set up with PCP appt Admission and Anticipated Discharge Date Admission Date: July 02, 2025 Subjective Patient in bedside chair reports feeling fine, denies any concerns discussed his foot pain--worked to express how important medication adherence is to prevent this pain from worsening, he said he "knows" and turned back to tv denies any other concerns at time of exam Physical Exam Constitutional: WD/WN, vitals as above Respiratory: normal respiratory effort, lungs clear to auscultation Cardiovascular: RRR, no murmur, no edema Gastrointestinal (Abdomen): normal bowel sounds, soft, nontender, no hepatosplenomegaly Results & Data Results & Data Vital Signs (Past 12 Hours) Vital Signs Temp Pulse Pulse Resp BP BP Pulse Ox 07/10/25 16:09 68 07/10/25 15:23 36.7 C 68 18 113/58 L 97 07/10/25 10:43 36.7 C 69 17 107/60 93 07/10/25 09:46 69 07/10/25 07:26 36.4 C L 65 17 107/66 95 O2 Del Method 07/10/25 16:09 07/10/25 15:23 Room Air 07/10/25 10:43 Room Air 07/10/25 09:46 07/10/25 07:26 Room Air (9) Frostbite Encounter type: initial encounter Qualified Code(s): T33.90XA - Superficial frostbite of unspecified sites, initial encounter
[2025-07-11 07:22] LABS: Hematocrit (blood only) 41.0 % (42.0-52.0); Hemoglobin 13.9 g/dL (14.0-18.0); Mean Corpuscular Hemoglobin 29.7 pg (25.0-34.0); Mean Corpuscular Volume 87.6 fL (80.0-100.0); Platelet Count 215 K/uL (130-400); RDW Standard Deviation 44.5 fL (36.4-46.3); Red Blood Count 4.68 M/uL (4.70-6.10); White Blood Count 11.31 K/ul (4.8-10.8)
[2025-07-11 07:44] LABS: ANTI-Xa, UFH(UnfractionatedHep 0.31 IU/ml (0.3-0.7)
[2025-07-11 07:46] LABS: Anion Gap 6.0 (3-11); Blood Urea Nitrogen 16.0 mg/dl (6-23); Calcium 10.4 mg/dl (8.6-10.3); Carbon Dioxide 27.0 mmol/L (21-32); Chloride 103.0 mmol/L (98-107); Creatinine Clr Calc Pharmacy 165.9 ml/min; Glucose 161.0 mg/dl (70-99(Fasting)); Potassium 4.2 mmol/L (3.5-5.1); Sodium 136.0 mmol/L (136-145)
[2025-07-11 07:57] LABS: INR 1.7 (0.9-1.1); Prothrombin Time 17.4 Seconds (9.0-12.0)
--- NOTE | 2025-07-11 14:26 | Hospitalist Progress Note ---
Date of Service July 11, 2025 Assessment & Plan (1) Chest pain: (2) Hx of CABG: (3) Diabetes mellitus: (4) Hypertension: (5) Heart failure with reduced ejection fraction: (6) Hyperlipidemia: (7) CAD (coronary artery disease): (8) Major depressive disorder: (9) Frostbite: Plan Mr. Jackman is a 55 year old Man with PMH of CAD s/p CABG Apr 2024, Diabetes Mellitus Type II, HTN, Hyperlipidemia, HFrEF presented with central crushing chest pain with radiation to the right arm and back pain that started around 1:30pm on day of presentation. Aspirin given via EMS. Has been off medications for 3 months due to MA issues #Chest pain #CAD s/p CABG x 16 Apr 2024 #possible Cardiac Thrombus Chest w/ radiation, elev trops EKG similar to prior Was on warfarin in past for LV thrombus Cards eval noted TTE noted EF 45-50%, apical kinesis. Cannot rule out associated thrombi, mild MR Currently on heparin - warfarin bridge Per Anticoagulation clinic in 02/2025, he was on 15mg on Sat and 10mg on other days. Patient confirmed INR is 1.7 Increased Coumadin to 15mg today INR daily #HFrEF #Hypertension #Hyperlipidemia euvolemic Continue metoprolol succ 25 mg daily, atorvastatin Continue lisinopril Continue lasix Monitor BP #Diabetes Mellitus Type II Labs on admission notable for AGMA with AGAP 15, bicarb of 15. pH of 7.3 6VBG, UA with 4+ketones HbA1C 12.7% Possible early DKA or starvation ketosis Was initially on insulin drip, successfully transitioned to sq Continue ISS Patient stated he does not want insulin injections on discharge. Counseled patient that insulin will help better control of his DM. He understood but still declined. Part of the concern with insulin is also related with homeless situation/storage issues. He is open to insulin inpatient but not on discharge DM diet lifted for now as patient tearful, declining all medications as he prefers a regular diet continue Insulin Lantus and ISS monitor BSGs closely, glycemic pharmacy #Hypomagnesemia #Hypophosphatemia - increased Mg to BID Mg 1.8 #Hypothermia #Wren bite -- XR foot was unremarkable Ortho recs noted CM working on social issues- including transitioning to a penitentiary, patient reports he called all the shelters with no success Will need all meds prescribed on dc DVT Ppx: Heparin gtt + warfarin Code status: Full PCP: Will need set up with PCP appt Admission and Anticipated Discharge Date Admission Date: July 02, 2025 Subjective NAEO laying in bed without concern, discussed that we are still working on his inr states that he feels the aspercreme helps with his legs cramps Verbalized understanding that the next day will be spent working for placement and next steps going forward, verbalized understanding Physical Exam Constitutional: WD/WN, vitals as above Respiratory: normal respiratory effort, lungs clear to auscultation Cardiovascular: RRR, no murmur, no edema Gastrointestinal (Abdomen): normal bowel sounds, soft, nontender, no hepatosplenomegaly Results & Data Results & Data Vital Signs (Past 12 Hours) Vital Signs Temp Pulse Pulse Resp BP BP Pulse Ox 07/11/25 11:04 36.5 C 68 20 107/61 97 07/11/25 08:03 111/58 L 07/11/25 07:46 63 07/11/25 07:35 36.9 C 65 20 96/61 L 95 07/11/25 02:37 37.0 C 65 20 119/80 95 O2 Del Method 07/11/25 11:04 Room Air 07/11/25 08:03 07/11/25 07:46 07/11/25 07:35 Room Air 07/11/25 02:37 Room Air (9) Frostbite Encounter type: initial encounter Qualified Code(s): T33.90XA - Superficial frostbite of unspecified sites, initial encounter
[2025-07-11] MEDS: WARFARIN SOD 7.5 MG TAB PO SCH (15:27)
[2025-07-12 06:37] LABS: INR 2.2 (0.9-1.1); Prothrombin Time 21.9 Seconds (9.0-12.0)
[2025-07-12 06:48] LABS: ANTI-Xa, UFH(UnfractionatedHep 0.29 IU/ml (0.3-0.7)
--- NOTE | 2025-07-12 10:45 | Hospitalist Progress Note ---
Date of Service July 12, 2025 Assessment & Plan (1) Chest pain: (2) Hx of CABG: (3) Diabetes mellitus: (4) Hypertension: (5) Heart failure with reduced ejection fraction: (6) Hyperlipidemia: (7) CAD (coronary artery disease): (8) Major depressive disorder: (9) Frostbite: Plan Mr. Jackman is a 55 year old Man with PMH of CAD s/p CABG Apr 2024, Diabetes Mellitus Type II, HTN, Hyperlipidemia, HFrEF presented with central crushing chest pain with radiation to the right arm and back pain that started around 1:30pm on day of presentation. Aspirin given via EMS. Has been off medications for 3 months due to MA issues #Chest pain #CAD s/p CABG x 16 Apr 2024 #possible Cardiac Thrombus Chest w/ radiation, elev trops EKG similar to prior Was on warfarin in past for LV thrombus Cards eval noted TTE noted EF 45-50%, apical kinesis. Cannot rule out associated thrombi, mild MR Currently on heparin - warfarin bridge Per Anticoagulation clinic in 02/2025, he was on 15mg on Sat and 10mg on other days. Patient confirmed 07/12 INR is 2.2 continue coumadin 15mg daily d/c Heparin drip INR daily #HFrEF #Hypertension #Hyperlipidemia euvolemic Continue metoprolol succ 25 mg daily, atorvastatin Continue lisinopril Continue lasix Monitor BP #Diabetes Mellitus Type II Labs on admission notable for AGMA with AGAP 15, bicarb of 15. pH of 7.3 6VBG, UA with 4+ketones HbA1C 12.7% Possible early DKA or starvation ketosis Was initially on insulin drip, successfully transitioned to sq Continue ISS Patient stated he does not want insulin injections on discharge. Counseled patient that insulin will help better control of his DM. He understood but still declined. Part of the concern with insulin is also related with homeless situation/storage issues. He is open to insulin inpatient but not on discharge DM diet lifted for now as patient tearful, declining all medications as he prefers a regular diet continue Insulin Lantus and ISS monitor BSGs closely, glycemic pharmacy #Possible Diabetic Neuropathy, BL Feet - start trial of Gabapentin 100mg BID #Hypomagnesemia #Hypophosphatemia - increased Mg to BID Mg 1.8 #Hypothermia #Wren bite -- XR foot was unremarkable Ortho recs noted CM working on social issues- including transitioning to a long term, patient reports he called all the shelters with no success Will need all meds prescribed on dc DVT Ppx: coumadin Code status: Full PCP: Will need set up with PCP appt Admission and Anticipated Discharge Date Admission Date: July 02, 2025 Subjective seen resting in bed, comfortable states he feels fine overall no chest pain, dyspnea, palpitations, dizziness reports persistent tingling and pain of BL feet Review of Systems Review of Systems: all noted and negative except for above Physical Exam Physical Exam: General- oriented x 3, not in distress, speaks in sentences with no effort or accessory muscle use Eyes- anicteric Neck- no JVD Lungs- clear breath sounds bilaterally, no rales/wheezes Heart- normal rate, regular rhythm; no murmurs Abdomen- normal bowel sounds, nondistended, soft, nontender Extremities- no pretibial edema, no calf tenderness Neuro- alert, oriented x 3; no gross focal neurologic deficits Skin- warm & dry Results & Data Results & Data Vital Signs (Past 12 Hours) Vital Signs Temp Pulse Resp BP BP Pulse Ox O2 Del Method 07/12/25 10:31 36.5 C 67 20 105/57 L 94 Room Air 07/12/25 07:21 36.4 C L 65 20 111/68 94 Room Air 07/12/25 02:47 37.1 C 67 18 103/58 L 95 Room Air 07/11/25 22:46 36.9 C 70 18 126/78 94 Room Air all noted and reviewed including below (9) Frostbite Encounter type: initial encounter Qualified Code(s): T33.90XA - Superficial frostbite of unspecified sites, initial encounter
--- NOTE | 2025-07-12 12:20 | Pharmacy Report ---
Pharmacy Glycemic Short Note 2 - Date of Service July 12, 2025 - Glycemic Short BSG Results (Last 24 hours): 07/11/25 07/11/25 07/12/25 15:58 20:34 07:19 POC Glucose 95 170 H 138 H 07/12/25 11:31 POC Glucose 211 H OUTPATIENT ANTIDIABETIC REGIMEN: * n/a (off meds for three months) A1c = 12.7% ASSESSMENT: 07/12: * BSGs [phone]/dL the last 24h. Received 52 units of basal and 46 units of bolus insulin yesterday. * Tolerating diet, stressors stable. * No change to insulin regimen today - continue Lantus 52 units daily and Novolog ACHS 11/12. 07/09: * Isael received 83 units of insulin yesterday, 45 of which were basal. BSGs were: 721-034-278-193 mg/dL. Improved with tightened carb ratio yesterday. * Fasting BSG is 159 mg/dL this AM. No change to basal dosing. * Lunchtime BSG was significantly elevated at 341 mg/dL. Spoke with patient's RN, and patient had late breakfast with coverage and then lunch BSG taken one hour later. This likely explains the elevated BSG. * Will loosen correction factor significantly only for lunch administration today to prevent stacking of doses and lows this evening. Resume previous correction factor at dinner. 07/07: * Patient received 85 units of insulin yesterday, 50 of which were basal. BSGs were: 476-377-604-269 mg/dL. * Fasting BSG finally improved to goal today, 152 mg/dL. Will back off basal dose slightly today as expecting patients fasting to continue to decrease daily now that basal deficiency is improved. May need to back off further in coming days. * No changes to Novolog regimen at this time. Remains on Heparin drip for bridge therapy with warfarin. Tolerating T2DM diet. 07/05: * Isael received 84 units of insulin yesterday, 45 of which were basal. BSGs were: 577-190-32-155 mg/dL. * Fasting BSG this AM remains elevated but did improve slightly: 212 mg/dL. * Confirmed with RN that no snacking/meals provided prior to check. Did receive 5 more units of basal this AM per scale. Will see how patient responds. May either be due to basal deficiency or basal dose wearing off. Should this trend continue, may need to split basal BID. * Trend downward in postprandials yesterday with dinner BSG being 83 mg/dL. Correction factor and carb ratio tightened yesterday. Given trend continued at lunchtime today, will loosen carb ratio only from lunch today forward. * Remains on heparin drip as bridge therapy with warfarin. 07/04: * BSG elevated since stopping IV insulin infusion. * Fasting BSG = 226 mg/dL. Increase basal insulin by ~30%. * Tighten Novolog CF and CR for post prandial hyperglycemia. 07/03: * 55 yo M with h/oT2DM who presented with central crushing chest pain with radiation to R arm and back pain. * BSG of 328 mg/dL on presentation. Of note, patient reports being off medications for three months. * IV insulin infusion initiated 07/02 PM. BSGs improved nicely overnight. Anion gap and bicarb wnl this am. Insulin infusion calculator instructed RN to hold infusion around 10 AM for BSG below goal. Prior to this, infusion had been running at 2.9-3.6 units/hr. Diet resumed. * Ordered a one time dose of Lantus to start transition to SQ insulin. Further Lantus dosing TBD based on BSG trend. * Will utilize weight/stress 2 for Novolog. PLAN FOR INPATIENT GLYCEMIC CONTROL: * Hold outpatient oral diabetes medications * Basal insulin * Lantus 52 units SC daily * Bolus insulin * NovoLog per scale ACHS or Q6hrs while NPO * Goal Range: Low 120 mg/dL - High 160 mg/dL * Correction Factor: 30 mg/dL/unit * Nutritional / Prandial insulin per carb ratio of 1 unit per 5 grams CHO consumed
[2025-07-12] MEDS: GABAPENTIN 100 MG CAP PO SCH (15:24)
[2025-07-12 15:32] LABS: ANTI-Xa, UFH(UnfractionatedHep < 0.10 IU/ml (0.3-0.7)
[2025-07-13 07:02] LABS: Hematocrit (blood only) 39.6 % (42.0-52.0); Hemoglobin 13.3 g/dL (14.0-18.0); Immature Granulocytes # (auto) 0.05 K/uL (0.01-0.20); Immature Granulocytes % (auto) 0.4 %; Mean Corpuscular Hemoglobin 28.9 pg (25.0-34.0); Mean Corpuscular Volume 85.9 fL (80.0-100.0); Platelet Count 247 K/uL (130-400); RDW Standard Deviation 43.1 fL (36.4-46.3); Red Blood Count 4.61 M/uL (4.70-6.10); White Blood Count 12.78 K/ul (4.8-10.8)
[2025-07-13 07:23] LABS: Anion Gap 7.0 (3-11); Blood Urea Nitrogen 18.0 mg/dl (6-23); Calcium 10.3 mg/dl (8.6-10.3); Carbon Dioxide 24.0 mmol/L (21-32); Chloride 104.0 mmol/L (98-107); Creatinine Clr Calc Pharmacy 178.8 ml/min; Glucose 123.0 mg/dl (70-99(Fasting)); Potassium 4.5 mmol/L (3.5-5.1); Sodium 135.0 mmol/L (136-145)
[2025-07-13 07:35] LABS: INR 2.4 (0.9-1.1); Prothrombin Time 24.0 Seconds (9.0-12.0)
[2025-07-13] MEDS: glipiZIDE 5 MG TAB PO ONE (11:49)
--- NOTE | 2025-07-13 13:17 | Pharmacy Report ---
Pharmacy Glycemic Short Note 2 - Date of Service July 13, 2025 - Glycemic Short BSG Results (Last 24 hours): 07/12/25 07/12/25 07/13/25 15:56 20:52 06:42 Glucose 123 H POC Glucose 209 H 178 H 07/13/25 07/13/25 07:17 11:08 Glucose POC Glucose 134 H 146 H OUTPATIENT ANTIDIABETIC REGIMEN: * n/a (off meds for three months) A1c = 12.7% ASSESSMENT: 07/13: * BSGs acceptable the last 24h: [phone]/dL. Received 52 units of basal and 25 units of bolus insulin yesterday. * Tolerating diet. Glipizide and metformin added today in preparation for transition to outpatient/discharge. * Will hold basal tomorrow AM (received dose this AM) until fasting BSG can be assessed in light of oral agents added today. Novolog carb ratio removed for now. 07/12: * BSGs [phone]/dL the last 24h. Received 52 units of basal and 46 units of bolus insulin yesterday. * Tolerating diet, stressors stable. * No change to insulin regimen today - continue Lantus 52 units daily and Novolog ACHS /. 07/09: * Isael received 83 units of insulin yesterday, 45 of which were basal. BSGs were: [phone] mg/dL. Improved with tightened carb ratio yesterday. * Fasting BSG is 159 mg/dL this AM. No change to basal dosing. * Lunchtime BSG was significantly elevated at 341 mg/dL. Spoke with patient's RN, and patient had late breakfast with coverage and then lunch BSG taken one hour later. This likely explains the elevated BSG. * Will loosen correction factor significantly only for lunch administration today to prevent stacking of doses and lows this evening. Resume previous correction factor at dinner. 07/07: * Patient received 85 units of insulin yesterday, 50 of which were basal. BSGs were: [phone] mg/dL. * Fasting BSG finally improved to goal today, 152 mg/dL. Will back off basal dose slightly today as expecting patients fasting to continue to decrease daily now that basal deficiency is improved. May need to back off further in coming days. * No changes to Novolog regimen at this time. Remains on Heparin drip for bridge therapy with warfarin. Tolerating T2DM diet. 07/05: * Isael received 84 units of insulin yesterday, 45 of which were basal. BSGs were: 591-450-09-155 mg/dL. * Fasting BSG this AM remains elevated but did improve slightly: 212 mg/dL. * Confirmed with RN that no snacking/meals provided prior to check. Did receive 5 more units of basal this AM per scale. Will see how patient responds. May either be due to basal deficiency or basal dose wearing off. Should this trend continue, may need to split basal BID. * Trend downward in postprandials yesterday with dinner BSG being 83 mg/dL. Correction factor and carb ratio tightened yesterday. Given trend continued at lunchtime today, will loosen carb ratio only from lunch today forward. * Remains on heparin drip as bridge therapy with warfarin. 07/04: * BSG elevated since stopping IV insulin infusion. * Fasting BSG = 226 mg/dL. Increase basal insulin by ~30%. * Tighten Novolog CF and CR for post prandial hyperglycemia. 07/03: * 55 yo M with h/oT2DM who presented with central crushing chest pain with radiation to R arm and back pain. * BSG of 328 mg/dL on presentation. Of note, patient reports being off medications for three months. * IV insulin infusion initiated 07/02 PM. BSGs improved nicely overnight. Anion gap and bicarb wnl this am. Insulin infusion calculator instructed RN to hold infusion around 10 AM for BSG below goal. Prior to this, infusion had been running at 2.9-3.6 units/hr. Diet resumed. * Ordered a one time dose of Lantus to start transition to SQ insulin. Further Lantus dosing TBD based on BSG trend. * Will utilize weight/stress 2 for Novolog. PLAN FOR INPATIENT GLYCEMIC CONTROL: * Hold outpatient oral diabetes medications * Basal insulin * Lantus 52 units SC daily-- reassess 07/14 AM * Bolus insulin * NovoLog per scale ACHS or Q6hrs while NPO * Goal Range: Low 120 mg/dL - High 160 mg/dL * Correction Factor: 25 mg/dL/unit * Nutritional / Prandial insulin per carb ratio of 1 unit per - grams CHO consumed
--- NOTE | 2025-07-13 18:35 | Hospitalist Progress Note ---
Date of Service July 13, 2025 Assessment & Plan (1) Chest pain: (2) Hx of CABG: (3) Diabetes mellitus: (4) Hypertension: (5) Heart failure with reduced ejection fraction: (6) Hyperlipidemia: (7) CAD (coronary artery disease): (8) Major depressive disorder: (9) Frostbite: Plan Mr. Jackman is a 55 year old gentleman with PMH of CAD s/p CABG Apr 2024, Diabetes Mellitus Type II, HTN, Hyperlipidemia, HFrEF presented with central crushing chest pain with radiation to the right arm and back pain that started around 1:30pm on day of presentation. Patient was evaluated with low suspicion for ACS. Patient bridged on heparin to warfarin successful. Patient ultimately medically stable, but dispo complicated by financial issues and homelessness. Case management following and planning for [facility] as an option for discharge. #Chest pain #CAD s/p CABG x 16 Apr 2024 #possible Cardiac Thrombus Chest w/ radiation, elev trops EKG similar to prior Was on warfarin in past for LV thrombus Cards eval noted TTE noted EF 45-50%, apical kinesis. Cannot rule out associated thrombi, mild MR Currently on heparin - warfarin bridge Per Anticoagulation clinic in 02/2025, he was on 15mg on Sat and 10mg on other days. Patient confirmed continue coumadin 15mg daily, resume home regimen on d/c #HFrEF #Hypertension #Hyperlipidemia euvolemic Continue metoprolol succ 25 mg daily, atorvastatin Continue lisinopril Continue lasix Monitor BP #Diabetes Mellitus Type II Labs on admission notable for AGMA with AGAP 15, bicarb of 15. pH of 7.3 6VBG, UA with 4+ketones HbA1C 12.7% Possible early DKA or starvation ketosis Was initially on insulin drip, successfully transitioned to sq Continue ISS Patient stated he does not want insulin injections on discharge. Counseled patient that insulin will help better control of his DM. He understood but still declined. Part of the concern with insulin is also related with homeless situation/storage issues. He is open to insulin inpatient but not on discharge patient declines insulin on d/c therefore assessing response to po medications today started on metformin and glipizide #Possible Diabetic Neuropathy, BL Feet - start trial of Gabapentin 100mg BID #Hypomagnesemia #Hypophosphatemia - increased Mg to BID #Hypothermia #Wren bite -- XR foot was unremarkable Ortho recs noted CM working on social issues- including transitioning to a [facility], patient reports he called all the shelters with no success all scripts called in, including [employer] glucometer and supplies. Timmy states that DVT Ppx: coumadin Code status: Full discharge tomorrow Admission and Anticipated Discharge Date Admission Date: July 02, 2025 Subjective SALVADOR Discussed dispo with patient, reported he had no luck with shelters. Discussed [facility] of the cold, he states he knows they can accept from 8-8 Discussed patient's car, he says he is unsure--but noted patient has a phone and advised he call the pound to locate Discussed patient's finances, will confirm prescriptions are covered given active [facility] Discussed ability to get to appointments, he states he has the ability to get to his appointments. Physical Exam Constitutional: WD/WN, vitals as above Respiratory: normal respiratory effort, lungs clear to auscultation Cardiovascular: RRR, no murmur, no edema Gastrointestinal (Abdomen): normal bowel sounds, soft, nontender, no hepatosplenomegaly Results & Data Results & Data Vital Signs (Past 12 Hours) Vital Signs Temp Pulse Pulse Resp BP BP Pulse Ox 07/13/25 15:26 70 07/13/25 15:16 36.6 C 68 20 105/65 95 07/13/25 10:50 36.6 C 72 20 110/69 96 07/13/25 09:37 63 07/13/25 07:21 36.9 C 64 19 106/67 95 O2 Del Method 07/13/25 15:26 07/13/25 15:16 Room Air 07/13/25 10:50 Room Air 07/13/25 09:37 07/13/25 07:21 Room Air (9) Frostbite Encounter type: initial encounter Qualified Code(s): T33.90XA - Superficial frostbite of unspecified sites, initial encounter
[2025-07-14 06:56] LABS: INR 2.3 (0.9-1.1); Prothrombin Time 22.8 Seconds (9.0-12.0)
[2025-07-14 07:58] VITALS: PULSE 63; RESP 22; TEMP 97.5; O2SAT 96
--- NOTE | 2025-07-14 08:07 | Discharge Summary ---
Discharge Summary Date of Service July 14, 2025 Principal Dx & Hospital Course #1 = Principal Diagnosis (1) Chest pain: (2) Hx of CABG: (3) Diabetes mellitus: (4) Hypertension: (5) Heart failure with reduced ejection fraction: (6) Hyperlipidemia: (7) CAD (coronary artery disease): (8) Major depressive disorder: (9) Frostbite: Plan Mr. Jackman is a 55 year old gentleman with PMH of CAD s/p CABG Apr 2024, Diabetes Mellitus Type II, HTN, Hyperlipidemia, HFrEF presented with central crushing chest pain with radiation to the right arm and back pain that started around 1:30pm on day of presentation. Patient was evaluated with low suspicion for ACS. Patient bridged on heparin to warfarin successful. Patient's course prolonged for working on dispo plan. Multiple shelters were contacted. Patient agreed to go to [facility]. Medications were called in and copay was $4.00 and this was provided to patient. Patient reports he has a friend in [place] who will help him and will come on Saturday. #Chest pain #CAD s/p CABG x 16 Apr 2024 #hx Cardiac Thrombus Chest w/ radiation, elev trops EKG similar to prior Was on warfarin in past for LV thrombus Cards eval noted TTE noted EF 45-50%, apical kinesis. Cannot rule out associated thrombi, mild MR Currently on heparin - warfarin bridge Per Anticoagulation clinic in 02/2025, he was on 15mg on Sat and 10mg on other days. Patient confirmed continue coumadin 15mg daily, resume home regimen on d/c #HFrEF #Hypertension #Hyperlipidemia euvolemic Continue metoprolol succ 25 mg daily, atorvastatin Continue lisinopril Continue lasix Monitor BP #Diabetes Mellitus Type II Labs on admission notable for AGMA with AGAP 15, bicarb of 15. pH of 7.3 6VBG, UA with 4+ketones HbA1C 12.7% Possible early DKA or starvation ketosis Was initially on insulin drip, successfully transitioned to sq Continue ISS Patient stated he does not want insulin injections on discharge. Counseled patient that insulin will help better control of his DM. He understood but still declined. Part of the concern with insulin is also related with homeless situation/storage issues. He is open to insulin inpatient but not on discharge patient declines insulin on d/c therefore assessing response to po medications today started on metformin and glipizide #Possible Diabetic Neuropathy, BL Feet - start trial of Gabapentin 100mg BID #Hypomagnesemia #Hypophosphatemia - increased Mg to BID #Hypothermia #Wren bite -- XR foot was unremarkable nothing surgical per ortho Notes For Next Care Provider Medication Changes From Visit All medications refilled Jardiance discontinued 2/2 costs Admission HPI Per Admitting Provider Patient is a 55 year old M with a past medical history of CAD s/p CABG Apr 2024, Diabetes Mellitus Type II, HTN, Hyperlipidemia, HFrEF presenting with central crushing chest pain with radiation to the right arm and back pain that started around 1:30pm today. Aspirin given via EMS. Reportedly had epistaxis 1 week ago, nonproductive cough, URI, shortness of breath, then developed vomiting yesterday. History of CABG in [place] in April 2024 and has not taken any medications x 3 months. Also with numbness to toes and found to have wren bite. As per ED provider, patient was hemodynamically stable with temp 36. Hypothermic management started with Bear hugger, IV fluid resuscitation. Blood pressure initially low to 98/77. Plan to admit Upon further review, labs showing leukocytosis with WBC 14, normal lactate and procal. Blood cultures pending. Trop 22 with report of chest pain. Initial EKG showing sinus tach, ST elevation to lead III, rate 102 bpm, QTc 435. Reporting 2/10 crushing chest pain with radiation to right arm. Tachycardic to 102, increased to 117 with position changes. Also with lightheadedness with position change only. Chest Xray read showing no active disease, possible pulmonary vascular congestion on my read. Denies fever, chills, weight loss, weakness, headache, cognitive changes, vision/hearing changes, swelling, urinary concerns, N/D, joint swelling/pain, ambulation difficulty, skin rashes, lesions, bruising. As per external chart review, patient presented to [facility] with chest pain in March 2024 and found to have heart failure, newly diagnosed ischemic ca rdiomyopathy, uncontrolled diabetes A1c 10.4. Multivessel disease found via cardiac cath here and transferred to [facility] on 04/04/24 for CABG. Echo workup at the time showed newly reduced EF of 30% w/ global hypokinesis, and a small apical thrombus. Status post CABG x3. Discharged to home and did initially have follow-up with PCP. Was on Warfarin for LV mural thrombus. Multiple no show appointments in outside record. Currently homeless, was [facility] in [place] 1 month ago and has been living in his car x 1 month. Reports food insecurity with last meal a week ago. Has been off meds for at least 3 months and unable to afford the medications. Former smoker for 35 years, 1-2 PPD history. Previous alcohol use 6 packs/year. Per outside EMR, patient was managed on metoprolol 25 mg, lisinopril 20 mg for hypertension. He was on Lasix, but took only on weekends due to its diuretic effect impacting his work. For diabetes management, previously on Jardiance 20 mg and metformin. History obtained primarily from the patient and via hospitalization record. External chart review obtained from [employer]. Admission Exam Per Admitting Provider VITALS: Reviewed. WEIGHT/BMI reviewed. GEN: Ill-appearing, well-developed PSYCH: Good Judgment. AOx3. Normal memory, mood, and affect. HEENT -Head: NC/AT; -Eyes: PERRL, EOMI. No discharge or redness; -Ears: External ears are normal. -Nose: Normal nares. -Mouth and throat: MMM. Normal gums, mucosa, palate,. Good dentition. NECK: Supple, with no masses. CV: S1, S2, no murmur, pedal edema, no JVD LUNGS: Crackles to right side, no cough, sats 98% on room air ABD: Soft, NT/ND, NBS, no masses or organomegaly. : N/A SKIN: left 1st digit hyperpigmented,bluish coloring, warm with Bear hugger tx, otherwise no rashes or lesions MSK: RICHARDSON freely, strength 3/5 LLE, normal x 3 EXT: No clubbing, cyanosis, or edema. NEURO: CN II-XII grossly intact. Speech clear. No focal deficits. Discharge Exam Constitutional WD/WN, vitals as above Respiratory normal respiratory effort, lungs clear to auscultation Cardiovascular RRR, no murmur, no edema Gastrointestinal (Abdomen) normal bowel sounds, soft, nontender, no hepatosplenomegaly Updated Medication List Medication Instructions Recorded Confirmed Type aspirin 81 mg chewable tablet 81 mg PO DAILY 30 days #30 tabs 07/13/25 Rx atorvastatin 80 mg tablet 80 mg PO DAILY #30 tabs 07/13/25 Rx blood sugar diagnostic (True #50 ea 07/13/25 Rx Metrix Glucose Test Strip) blood-glucose meter (True Metrix #1 ea 07/13/25 Rx Glucose Meter) diclofenac sodium 1 % topical gel 1 ea topical UD PRN pain #50 grams 07/13/25 Rx famotidine 20 mg tablet 20 mg PO BID #60 tabs 07/13/25 Rx furosemide 40 mg tablet 40 mg PO DAILY #30 tabs 07/13/25 Rx gabapentin 100 mg capsule 100 mg PO BID #60 caps 07/13/25 Rx lancets 30 gauge (TRUEplus Lancets) #100 ea 07/13/25 Rx lisinopril 20 mg tablet 20 mg PO DAILY #30 tabs 07/13/25 Rx magnesium oxide 400 mg (241.3 mg 400 mg PO BID #60 tabs 07/13/25 Rx magnesium) tablet metformin 500 mg tablet,extended 500 mg PO BID #60 tabs 07/13/25 07/02/25 Rx release 24 hr metoprolol succinate 25 mg 25 mg PO DAILY #30 tabs 07/13/25 Rx tablet,extended release 24 hr warfarin 5 mg tablet 10 mg (2 x 5 mg) PO DAILY #64 tabs 07/13/25 Rx glipizide 10 mg tablet, extended 10 mg PO DAILY 30 days #30 tabs 07/14/25 Rx release 24 hr Hospital Stay Data Consultations 07/02/25 16:53 ED Decision to Admit Stat 07/02/25 17:09 Consult Orthopedic Surgery Routine 07/02/25 17:13 Consult Cardiology Routine 07/06/25 12:37 Consult Psychiatry Routine Diagnostic Imagining Performed 07/02/25 17:04 CT angio chest PE protocol Urgent 07/02/25 17:08 CT abd pelvis IV con only Urgent Pending Results Patient Have Any Pending Studies at Discharge: No Discharge Instructions Given to Patient (Per Discharging Provider) You were admitted for chest pain and evaluation did not reveal any cardiac problems. You were bridged on to warfarin and your INR was therapeutic on discharge. Please continue 10mg Warfarin everyday except for Saturday in which you to 15mg Warfarin. It is very important you follow up with the Anticoagulation clinic for INR check and further instructions for dosing. For your diabetes: You will continue on Metformin 500mg two times a day. You will continue with Glipizide 10mg daily You were given a new script for glucometer. Please check your glucose one time daily and keep a log. In order to prevent worsening neuropathy/foot pain, please keep up with getting your sugars under control. For your neuropathy: You were started on gabapentin 100mg two times a day. Please ask your PCP for a referral. All of your previously prescribed medications were refilled. Total Time Total Time Spent Total Time Spent (In Minutes): 45
[2025-07-14] MEDS: LANTUS PER UNIT CHARGE SC ONE (09:00)
[2025-07-14] MEDS: glipiZIDE 5 MG TAB PO SCH (09:00)
[2025-07-14 10:49] VITALS: BP 111/63
== END 2025-07-14 13:38 | disposition home or self-care (01) | DRG 313 ==
LOC: EDSEX → ED 14:35 → 2E 17:17 → SUATTDRO 17:17 → MERGE 17:17 → 2E 18:42